=== PATIENT | female | born 1965 | race African-American/Black ===

== ENCOUNTER 2021-10-23 13:46 | Outpatient (REF) | payer OTHER, SELFPAY ==
[2021-10-23 15:24] LABS: Erythrocyte Sedimentation Rate 7 MM/HR (0-20)
[2021-10-24 05:30] LABS: Lyme Abs Screen <0.90 index
[2021-10-24 12:51] LABS: Anti Nuclear Antibody Screen NEGATIVE (NEGATIVE)
[2021-10-27 07:21] LABS: Angiotensin Converting Enzyme 6 U/L (9-67)
== END 2021-10-23 13:47 | disposition home or self-care (01) ==
LOC: HO.LAB 13:46
PROVIDERS: PCP Internal Medicine; Visit Provider Psychiatry & Neurology Neurology
DX: G51.0 Bell's palsy (principal)
CPT/HCPCS: 36415; 82164; 85652; 86038; 86039; 86617; 86618

== ENCOUNTER 2021-10-31 11:06 | Outpatient (REF) | payer MEDICARE, MEDICAID, SELFPAY ==
--- NOTE | ~2021-10-31 | MR_ITS ---
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 COMPARISON: None TECHNIQUE: Multiplanar, multisequence MRI of the brain was obtained before and after the intravenous administration of 10 mL Gadavist. FINDINGS: IACs: The internal auditory canals are bilaterally symmetric in appearance. Note is made of asymmetric enhancement involving the left 7th nerve within the fundus of the IAC and within the labyrinthine segment with asymmetric enhancement of the tympanic segment as well compared to the right side. There is asymmetric enhancement of the descending, mastoid segment but this could be within the range of normal. These findings are consistent with Chapin's palsy. No focal mass lesion is identified. On the right side, there is no evidence for mass lesion or abnormal enhancement. AICA Loops: Type I on left. Membranous Labyrinths: The membranous labyrinths are bilaterally symmetric on the fluid-sensitive thin-section T2-weighted images. There is no abnormal cochlear enhancement, and there is no abnormal enhancement within the vestibule or semicircular canals bilaterally. CP Angle Cisterns: No mass lesions or abnormal enhancement are identified. Brain Volume: Within normal limits. Brain and Meninges: DWI sequence demonstrates no restricted diffusion. Specifically, there is no evidence for acute or subacute cerebral ischemia. The remainder of the brain is normal in morphology and signal intensity. No evidence for hemorrhage, hemosiderin staining or abnormal mineral deposition. No extra-axial fluid collections, intracranial mass lesion, other abnormal enhancement, space-occupying process or mass effect. Vessels: Signal voids are seen in the visualized major intracranial vessels near the skull base. Ventricles and Subarachnoid Spaces: The ventricular system and subarachnoid spaces are within normal limits. There is no hydrocephalus. Orbital Structures: The visualized orbital structures are grossly unremarkable within the limitations of the study. Bony Structures: Upper cervical DDD and spondylosis is noted at C3-C4 and C4-C5. MR/MR head/brain wo/w con IMPRESSION: 1. Focal asymmetric enhancement of the left 7th nerve, as described above, which is consistent with the diagnosis of Chapin's palsy. No mass lesion identified. 2. Remainder of the brain is normal in appearance without and with contrast. 3. Upper cervical DDD and spondylosis.
[2021-10-31 11:40] LABS: Blood Urea Nitrogen 16 mg/dL (9-16); Estimated Glomerular Filt Rate 56
== END 2021-10-31 11:07 | disposition home or self-care (01) ==
LOC: HO.MRI 11:06
PROVIDERS: PCP Internal Medicine; Visit Provider Psychiatry & Neurology Neurology
DX: G51.0 Bell's palsy (principal)
CPT/HCPCS: 36415; 70553; 82565; 84520; A9585

== ENCOUNTER 2021-12-18 16:00 | Outpatient (RCR) | payer MEDICARE, OTHER, MEDICAID, SELFPAY ==
--- NOTE | 2021-10-31 13:09 | MHC.PT.EP ---
[facility] [place] Office [place] Office [place] Office [address] Willis Chaudhry [address] [phone] F: [phone] F: [phone] F: [phone] F: [phone] Physical Therapy Plan of Care Date of Evaluation: Date of Surgery: N/A Diagnosis: chase's palsy Assessment: pt presents to physical therapy with pain, decreased range of motion, decreased strength, difficulty w/ enunciation, impaired chewing/swallowing, and impaired postural awareness. pt is a good candidate for skilled PT due to age, potential remediation of impairments, typical disease/condition progression and prognosis, comorbidities, and motivation. pt would benefit from tailored strengthening and stretching exercise program, functional training, postural re-training, neuromuscular re-education, and modalities as needed for pain. Frequency and Duration: The patient will be seen 2x/wk for 4 wks Short Term Goals: pt will be I w/ HEP to promote self-management of condition. pt will be I w/ L eye closure to protect her eye w/ sleeping, coughing, and sneezing and progress from using eye patch. [facility] Goals: pt will have at least 3/5 strength for zygomaticus major to promote increased ability to smile for appropriate social interactions. pt will report <3/10 L sided forehead, eyebrow, eye, and cheek pain w/ chewing and swallowing to promote pain-limited return to eating. Treatment Plan: Modalities to reduce pain, spasms and effusion. Manual therapy to restore motion and function. Therapeutic exercise to improve strength and flexibility. Neuromuscular re-education for posture and balance. Therapeutic activities to return to functional activities of daily living. Electronically signed by: Sho Gutierrez PT, DPT Please sign and return to therapist. Thank you for your referral.
--- NOTE | 2022-01-15 16:23 | MHC.PT.DC ---
[facility] [place] Office [place] Office [place] Office [address] Willis Chaudhry [address] [phone] F: [phone] F: [phone] F: [phone] F: [phone] Physical Therapy Discharge Report Diagnosis: chase's palsy Date of Surgery: N/A Date of Evaluation: 10/31/21 Date of Discharge: 01/15/22 Treatments to Date: 7 Cancellations to Date: 8 No Shows to Date: 1 Discharge Status: Patient Elected to Stop Recommend MD Follow-up Discharge Summary: The patient overall was getting little to no recovery of activation of facial muscles on effected side. She was using NMES at subtherapeutic ranges due to poor tolerance of electrical stimulation. She has a home TENS unit she was using as well. The patient has a home exercise program including active and active assisted range of motion exercises involving effected facial muscles. She was educated on eye protection and safety. She was initially put on hold as she was having barriers to treatment including family and personal matters. She has not called to schedule any further appointments in over two weeks. She is discharged from this physical therapy plan of care with recommendation of physician follow-up to review any other potential recovery options. Electronically signed by: Sho Gutierrez PT, DPT Please sign and return to therapist. Thank you for your referral.
== END 2022-01-15 16:24 | disposition home or self-care (01) ==
LOC: HO.PT 16:00
PROVIDERS: Visit Provider Psychiatry & Neurology Neurology
DX: G51.0 Bell's palsy (principal)
CPT/HCPCS: 97014; 97110; 97140; 97161

== ENCOUNTER → 2022-04-12 13:09 | Outpatient (BNVA) | payer OTHER, SELFPAY | PROVIDERS: PCP Internal Medicine; Visit Provider Nurse Practitioner Family | DX: G51.0 Bell's palsy (principal); G51.32 Clonic hemifacial spasm, left; G43.009 Migraine without aura, not intractable, without status migrainosus | CPT/HCPCS: 99202 ==

== ENCOUNTER 2022-05-15 16:22 | Outpatient (REF) | payer OTHER, SELFPAY ==
--- NOTE | ~2022-05-15 | MR_ITS ---
MRI OF THE BRAIN WITH AND WITHOUT IV CONTRAST MRA OF THE BRAIN WITH AND WITHOUT IV CONTRAST INDICATION: Chapin's palsy. COMPARISON: Brain MRI 10/31/2021. TECHNIQUE: Multiplanar multisequence MR imaging of the brain was obtained without and following the administration of 10 of Gadavist without complication with dedicated IAC pulse series. FINDINGS: MRI BRAIN: There is significantly improved and nearly resolved asymmetric linear enhancement involving the fundal, labyrinthine, geniculate, tympanic, and mastoid segments of the left facial nerve in keeping with known left-sided Chapin's palsy. No parenchymal signal abnormality. No acute infarct on diffusion-weighted imaging. No intracranial hemorrhage on the gradient series. No hydrocephalus, extra-axial surface collection, or herniation. There is a 3 mm focus of hypoenhancement within the left aspect of the pituitary gland that could reflect a pituitary microadenoma which can be correlated with endocrine function tests. There is no sellar/suprasellar mass effect. Cerebellar tonsils are normally positioned. Craniocervical junction is normal. Osseous marrow signal intensity remains homogeneous. No significant soft tissue abnormality is appreciated. There is multilevel cervical spondylosis. MRA HEAD: There is normal antegrade flow related signal throughout the anterior and posterior intracranial arterial circulations without significant arterial stenosis and without acute arterial occlusion. No aneurysms and no high flow vascular malformations. MR/MR head/brain wo/w con IMPRESSION: - There is significantly improved and nearly resolved asymmetric linear enhancement involving the fundal, labyrinthine, geniculate, tympanic, and mastoid segments of the left facial nerve in keeping with known left-sided Chapin's palsy. - There is a 3 mm focus of hypoenhancement within the left aspect of the pituitary gland that could reflect a pituitary microadenoma which can be correlated with endocrine function tests. There is no sellar/suprasellar mass effect. - Unremarkable MRA of the head.
--- NOTE | ~2022-05-15 | MR_ITS ---
MRI OF THE BRAIN WITH AND WITHOUT IV CONTRAST MRA OF THE BRAIN WITH AND WITHOUT IV CONTRAST INDICATION: Chapin's palsy. COMPARISON: Brain MRI 10/31/2021. TECHNIQUE: Multiplanar multisequence MR imaging of the brain was obtained without and following the administration of 10 of Gadavist without complication with dedicated IAC pulse series. FINDINGS: MRI BRAIN: There is significantly improved and nearly resolved asymmetric linear enhancement involving the fundal, labyrinthine, geniculate, tympanic, and mastoid segments of the left facial nerve in keeping with known left-sided Chapin's palsy. No parenchymal signal abnormality. No acute infarct on diffusion-weighted imaging. No intracranial hemorrhage on the gradient series. No hydrocephalus, extra-axial surface collection, or herniation. There is a 3 mm focus of hypoenhancement within the left aspect of the pituitary gland that could reflect a pituitary microadenoma which can be correlated with endocrine function tests. There is no sellar/suprasellar mass effect. Cerebellar tonsils are normally positioned. Craniocervical junction is normal. Osseous marrow signal intensity remains homogeneous. No significant soft tissue abnormality is appreciated. There is multilevel cervical spondylosis. MRA HEAD: There is normal antegrade flow related signal throughout the anterior and posterior intracranial arterial circulations without significant arterial stenosis and without acute arterial occlusion. No aneurysms and no high flow vascular malformations. MR/MR angio head wo con IMPRESSION: - There is significantly improved and nearly resolved asymmetric linear enhancement involving the fundal, labyrinthine, geniculate, tympanic, and mastoid segments of the left facial nerve in keeping with known left-sided Chapin's palsy. - There is a 3 mm focus of hypoenhancement within the left aspect of the pituitary gland that could reflect a pituitary microadenoma which can be correlated with endocrine function tests. There is no sellar/suprasellar mass effect. - Unremarkable MRA of the head.
== END 2022-05-15 16:23 | disposition home or self-care (01) ==
LOC: HO.MRI 16:22
PROVIDERS: Visit Provider Nurse Practitioner Family
DX: G51.0 Bell's palsy (principal); G51.32 Clonic hemifacial spasm, left; I11.0 Hypertensive heart disease with heart failure; I50.9 Heart failure, unspecified; E78.5 Hyperlipidemia, unspecified
CPT/HCPCS: 70544; 70553; A9585

== ENCOUNTER → 2022-07-13 13:26 | Outpatient (BNVA) | payer OTHER, SELFPAY | PROVIDERS: PCP Internal Medicine; Visit Provider Nurse Practitioner Family | DX: G51.32 Clonic hemifacial spasm, left (principal); G43.009 Migraine without aura, not intractable, without status migrainosus; G51.0 Bell's palsy; D35.2 Benign neoplasm of pituitary gland; L65.9 Nonscarring hair loss, unspecified | CPT/HCPCS: 99212 ==

== ENCOUNTER → 2022-08-07 08:56 | Outpatient (BNVA) | payer OTHER, SELFPAY | PROVIDERS: PCP Internal Medicine; Visit Provider Psychiatry & Neurology Neurology | DX: G51.32 Clonic hemifacial spasm, left (principal) | CPT/HCPCS: 64612; 99211; J0585 ==

== ENCOUNTER → 2022-08-17 16:32 | Outpatient (BNVA) | payer OTHER, SELFPAY | PROVIDERS: PCP Internal Medicine; Visit Provider Internal Medicine Endocrinology, Diabetes & Metabolism | DX: D35.2 Benign neoplasm of pituitary gland (principal) | CPT/HCPCS: 99202 ==

== ENCOUNTER → 2022-09-27 12:55 | Outpatient (BNVA) | payer OTHER, SELFPAY | PROVIDERS: PCP Internal Medicine; Visit Provider Nurse Practitioner Family | DX: M54.2 Cervicalgia (principal); G43.009 Migraine without aura, not intractable, without status migrainosus; G51.0 Bell's palsy; G51.32 Clonic hemifacial spasm, left; Z79.899 Other long term (current) drug therapy | CPT/HCPCS: 99212 ==

== ENCOUNTER → 2022-11-06 15:48 | Outpatient (BNVA) | payer OTHER, SELFPAY | PROVIDERS: PCP Internal Medicine; Visit Provider Psychiatry & Neurology Neurology | DX: G51.32 Clonic hemifacial spasm, left (principal) | CPT/HCPCS: 64612; 99211; J0585 ==

== ENCOUNTER → 2022-12-20 13:07 | Outpatient (BNVA) | payer OTHER, SELFPAY | PROVIDERS: PCP Internal Medicine; Visit Provider Nurse Practitioner Family | DX: G43.009 Migraine without aura, not intractable, without status migrainosus (principal); G51.32 Clonic hemifacial spasm, left; G51.0 Bell's palsy; G47.19 Other hypersomnia; G47.9 Sleep disorder, unspecified; R06.83 Snoring | CPT/HCPCS: 99212 ==

== ENCOUNTER → 2023-02-06 08:28 | Outpatient (BNVA) | payer OTHER, SELFPAY | PROVIDERS: PCP Internal Medicine; Visit Provider Psychiatry & Neurology Neurology | DX: G51.32 Clonic hemifacial spasm, left (principal) | CPT/HCPCS: 64612; 99211; J0585 ==

== ENCOUNTER → 2023-02-28 11:50 | Outpatient (BNVA) | payer OTHER, SELFPAY | PROVIDERS: PCP Internal Medicine; Visit Provider Internal Medicine Endocrinology, Diabetes & Metabolism | DX: D35.2 Benign neoplasm of pituitary gland (principal) | CPT/HCPCS: 99212 ==

== ENCOUNTER → 2023-03-26 13:59 | Outpatient (BNVA) | payer OTHER, SELFPAY | PROVIDERS: PCP Internal Medicine; Visit Provider Nurse Practitioner Family | DX: G43.009 Migraine without aura, not intractable, without status migrainosus (principal); G51.32 Clonic hemifacial spasm, left; G51.0 Bell's palsy; G47.19 Other hypersomnia; G47.9 Sleep disorder, unspecified; M54.2 Cervicalgia; R06.83 Snoring | CPT/HCPCS: 99212 ==

== ENCOUNTER 2023-07-12 13:06 | Outpatient (AMB) | payer OTHER, SELFPAY ==
[2023-07-12 13:08] VITALS: BP 130/90; PULSE 111; O2SAT 99; BMI 34.7
--- NOTE | 2023-07-12 13:08 | MHC.OFFVIS ---
Intake Vital Signs 07/12/23 13:08 Height 5 ft 4 in Weight 202 lb BMI 34.7 BP 130/90 H Blood Pressure Location Rt brachial Position Sitting Pulse 111 H Pulse Source Pulse Oximeter Pulse Oximetry (%) 99 Oxygen Delivery Method Room Air Intake Visit Reasons: 3m follow up-Confirmed Intake Note: Patient presents for 3 month follow up. Patient states I don't know if i got injection last month but my mom passed and its been stressful I forgot if I did it or not My right side of my face feels like its pulling. Allergies Sulfa (Sulfonamide Antibiotics) Allergy (Mild, Verified 07/12/23 13:12) Hives Medication List - Last Reconciled 07/12/23 by SKYE Rios acetaminophen 0 mg PO acetaminophen ER (Tylenol 8 Hour) 650 mg PO Q12H [id number]-[id number] 50-325-40 mg 1 - 2 tabs PO Q4-6H PRN 30 days celecoxib 0 mg PO cetirizine (Zyrtec) 10 mg PO DAILY PRN cholecalciferol (vitamin D3) (Vitamin D3) 50 mcg PO DAILY cyclobenzaprine 10 mg PO BID 30 days diclofenac sodium 1% 4 grams topical BID gabapentin 300 mg PO BID 30 days galcanezumab-gnlm (Emgality Pen) 120 mg subcut ONCE 30 days hydrochlorothiazide 25 mg PO DAILY lisinopril 20 mg PO DAILY magnesium oxide 400 mg PO BEDTIME 30 days melatonin 3 mg PO BEDTIME PRN melatonin 1 mg PO BEDTIME metoprolol tartrate 50 mg PO BID onabotulinumtoxinA (Botox) 100 units IM ONCE 12 weeks ondansetron HCl 4 mg PO Q8H PRN polyethylene glycol 3350 17 grams PO DAILY pyridoxine (vitamin B6) (Vitamin B-6) 250 mg PO DAILY PRN riboflavin (vitamin B2) 400 mg PO DAILY sertraline 100 mg PO DAILY thiamine mononitrate (vit B1) (Vitamin B-1 (mononitrate)) 250 mg PO DAILY trazodone 50 mg PO BEDTIME HPI HPI Comments History of Present Illness Details 57-yr-old female presents for f/u visit. Pt denies any significant interval medical changes. However, she did lose her mom over the summer and has been overwhelmed with all that needs to be done and is still grieving from the loss of her mom. She did have [facility] pain management consult- was advised to have neurosurgeon consult with Dr Hayward in [facility], who advised her to undergo l-spine repair for tx of lumbroscral radiculitis. She is open to doing this but will wait until next year. They advsied agianst any cervical surgical interventions at this time. Also needs to have a TKR next year. She is currently overdue for her Botox for her left facial hemispasm- she is noticing more left facial spasms, especially when eating her eye will spasms, or when talking the left cheek will spasm. This was less noticeable and bothersome after the last Botox injection. She is having more headaches, nearly everyday now. She has been noticing a right facial pulling around her eye area. She is having increased headaches. She is not sleeping as well. She has missed her last 1-2 months of Emgality. She ran out of her gabapentin. [facility] Medical History Brachial radiculitis Cervical post-laminectomy syndrome Congestive heart failure (CHF) Degenerative disc disease, cervical Depression with anxiety GERD (gastroesophageal reflux disease) HLD (hyperlipidemia) Insomnia Lumbosacral radiculitis Obstructive sleep apnea Osteoarthritis Post-thrombotic syndrome Urinary incontinence Vitamin D deficiency Surgical History H/O breast biopsy History of lumbar spinal fusion S/P laparoscopic surgery Hx of tubal ligation History of total knee replacement (TKR) Hx of neck surgery Hx of hand surgery Hx of colonoscopy Family History Mother Breast CA DM (diabetes mellitus) HTN (hypertension) Arthritis ESRD (end stage renal disease) Father Arthritis ESRD (end stage renal disease) Maternal Aunt Breast CA Social History Household Members: Spouse Alcohol intake: current Alcohol intake frequency: a few times a week Patient Tobacco Use Status: Never used Tobacco Substance Use Type: Marijuana Review of Systems Const All systems reviewed & are unremarkable except as noted in HPI and below Physical Exam Vital Signs: Last Vital Signs Pulse 111 H 07/12/23 13:08 BP 130/90 H 07/12/23 13:08 Pulse Ox 99 07/12/23 13:08 Oxygen Delivery Method Room Air 07/12/23 13:08 BMI result Body Mass Index 34.7 Const General: cooperative and no acute distress Orientation/consciousness: patient oriented x3 HEENT Head: Yes normocephalic Resp Effort & Inspection: normal respiratory effort and able to speak in complete sentences Neuro General: patient oriented x3, gait normal and CN's II-XI intact bilaterally Cognition (Neuro): normal cognition Motor exam (neuro): 5/5 motor strength present throughout Psych Appearance: grossly normal Mental Status: mental status grossly normal Speech and movement: Normal speech and movement present Affect: normal affect Attitude: cooperative Thought process: Normal thought process present Thought content: Normal thought content present Insight: Good insight present (Psych) Judgement: Good judgement present (Psych) Assessment & Plan Assessment & Plan (1) Migraine without aura: Code(s): G43.009 - Migraine without aura, not intractable, without status migrainosus (2) Hemifacial spasm of left side of face: Code(s): G51.32 - Clonic hemifacial spasm, left (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 Increase Gabapentin from 300mg bid to 300mg qam and 600mg qhs- in hopes this helps headcahes as well. f/u w/ pain management Dr Smith. For sleep difficulties: Pt missed her HST appt- advised to reschedule. ? For hemifascial spasm: Resume Botox q 3 months, as pt previously experienced good effect from use. Continue to do facial exercises ? For migraine w/o aura: Resume Emgality? 120mg sc q month. Continue Riboflavin 400mg qam Continue Magnesium 400mg qhs Stop Fioircet prn. Trial Ubrelvy as needed Contraindications- triptans d/t HTN. Previous migraine trials: Topiramate was not helpful. Previously tried Amitriptyline- unhelpful. She currently takes metoprolol for HTN however this does not help migraines. Future considerations- Nurtec or qulipta for prevention. ? f/u in 4 months or sooner prn Medications: New ubrogepant (Ubrelvy) take at onset of migraine, may repeat in 2hrs (may take w/ Tylenol) 50 - 100 mg (0.5 - 1 x 100 mg) PO ONCE 30 days PRN 16 tabs 3RF migraine headache Changed From gabapentin 300 mg PO BID 30 days 60 caps 3RF To gabapentin 300mg qam and 600mg qhs orally .; 30 days 90 caps 3RF Coding Level of Care Code Est Pt Level 4 (28697) Diagnoses Migraine without aura G43.009 Hemifacial spasm of left side of face G51.32 Chapin's palsy G51.0 Cervicalgia M54.2 Snoring R06.83 Excessive daytime sleepiness G47.19 Sleep difficulties G47.9
== END 2023-07-12 13:56 | disposition home or self-care (01) ==
PROVIDERS: PCP Internal Medicine; Visit Provider Nurse Practitioner Family
DX: G43.009 Migraine without aura, not intractable, without status migrainosus (principal); G51.32 Clonic hemifacial spasm, left; G51.0 Bell's palsy; M54.2 Cervicalgia; R06.83 Snoring; G47.19 Other hypersomnia; G47.9 Sleep disorder, unspecified
CPT/HCPCS: 99214

== ENCOUNTER → 2023-07-12 13:06 | Outpatient (BNVA) | payer OTHER, SELFPAY | PROVIDERS: PCP Internal Medicine; Visit Provider Nurse Practitioner Family | DX: G43.009 Migraine without aura, not intractable, without status migrainosus (principal); G51.32 Clonic hemifacial spasm, left; G51.0 Bell's palsy; M54.2 Cervicalgia; G47.19 Other hypersomnia; R06.83 Snoring; Z79.899 Other long term (current) drug therapy | CPT/HCPCS: 99212 ==

== ENCOUNTER 2023-07-16 07:31 | Outpatient (AMB) | payer OTHER, SELFPAY ==
--- NOTE | 2023-07-16 07:35 | A.OFFVIS_ITS ---
Intake Vital Signs 07/16/23 07:49 Weight 202 lb 8 oz BP 120/90 H Blood Pressure Location Rt brachial Position Sitting Pulse 83 Pulse Source Pulse Oximeter Pulse Oximetry (%) 99 Oxygen Delivery Method Room Air Intake Visit Reasons: Botox-confirmed Intake Note: Botox Injection Surgeon Assistant Required: No Allergies Sulfa (Sulfonamide Antibiotics) Allergy (Mild, Verified 07/16/23 07:37) Hives Medication List - Last Reconciled 07/16/23 by Florina Perla MD acetaminophen 0 mg PO acetaminophen ER (Tylenol 8 Hour) 650 mg PO Q12H celecoxib 0 mg PO cetirizine (Zyrtec) 10 mg PO DAILY PRN cholecalciferol (vitamin D3) (Vitamin D3) 50 mcg PO DAILY cyclobenzaprine 10 mg PO BID 30 days diclofenac sodium 1% 4 grams topical BID gabapentin 300 mg PO BID hydrochlorothiazide 25 mg PO DAILY ketoconazole 2% topical lisinopril 20 mg PO DAILY magnesium oxide 400 mg PO BEDTIME 30 days melatonin 3 mg PO BEDTIME PRN metoprolol tartrate 50 mg PO BID onabotulinumtoxinA (Botox) 100 units IM ONCE 12 weeks ondansetron HCl 4 mg PO Q8H PRN polyethylene glycol 3350 17 grams PO DAILY pyridoxine (vitamin B6) (Vitamin B-6) 250 mg PO DAILY PRN sertraline 100 mg PO DAILY thiamine HCl (vitamin B1) mg PO trazodone 50 mg PO BEDTIME ubrogepant (Ubrelvy) 50 - 100 mg (0.5 - 1 x 100 mg) PO ONCE PRN 30 days HPI HPI Comments History of Present Illness Details 57y/o female comes for treatment of her left hemifacial spasm with botox Botulinum toxin type A 100 units Lot no C [id number] X 1 Exp 01/2025 was diluted with 1 cc of normal saline at a concentration of 5 units in 0.1 cc. Side effects were discussed and an informed consent was obtained. Muscles injected left Lateral canthus - 10 units each left Lateral Lower eyelid-10units each left zygomaticus 10 units left Nasolabial fold 10 units each left mentalis 5 units each left uppe rlip 5 units Venkata temporlais 20 units each Total used 90units discarded 10 units PFSH Medical History Vitamin D deficiency Insomnia Depression with anxiety GERD (gastroesophageal reflux disease) HLD (hyperlipidemia) Obstructive sleep apnea Urinary incontinence Post-thrombotic syndrome Congestive heart failure (CHF) Degenerative disc disease, cervical Osteoarthritis Lumbosacral radiculitis Cervical post-laminectomy syndrome Brachial radiculitis Surgical History H/O breast biopsy History of lumbar spinal fusion S/P laparoscopic surgery Hx of tubal ligation History of total knee replacement (TKR) Hx of neck surgery Hx of hand surgery Hx of colonoscopy Family History Mother Breast CA DM (diabetes mellitus) HTN (hypertension) Arthritis ESRD (end stage renal disease) Father Arthritis ESRD (end stage renal disease) Maternal Aunt Breast CA Social History Household Members: Spouse Alcohol intake: current Alcohol intake frequency: a few times a week Patient Tobacco Use Status: Never used Tobacco Substance Use Type: Marijuana Physical Exam Vital Signs: Last Vital Signs Pulse 83 07/16/23 07:49 BP 120/90 H 07/16/23 07:49 Pulse Ox 99 07/16/23 07:49 Oxygen Delivery Method Room Air 07/16/23 07:49 Const Other: left hemifacial spasm Office Procedures Botulinum toxin Injection 90248 - Facial Nerve Procedure code (CPT) selection complete Office Meds onabotulinumtoxinA 100 unit solution for injection Performing Provider: Florina Perla MD Performing Location[place] [facility] [place] [facility] Administered by: Florina Perla MD on 07/16/23 08:17 Dose Route Admin Location Dispensed Lot Number Expiration Date [facility] Bracer 100 unit subcut 100 units [id number] 01/19/25 2836-3633-94 [employer] Comments: see hpi Assessment & Plan Assessment & Plan (1) Hemifacial spasm of left side of face: Code(s): G51.32 - Clonic hemifacial spasm, left Plan Patient tolerated the procedure well she will call with any side effects Orders: Orders AMB Botulinum toxin Injection - Patient Supplied Today G51.32 - Clonic hemifacial spasm, left Medications: Changed From gabapentin 300mg qam and 600mg qhs orally .; 90 caps 3RF 30 days To gabapentin 300 mg PO BID Coding Level of Care Code Est Pt Level 1 (38620) Diagnoses Hemifacial spasm of left side of face G51.32 CPT Codes Botox Injection - Botox 2: 33300 - Facial Nerve ([id number])
[2023-07-16 07:49] VITALS: BP 120/90; PULSE 83; O2SAT 99
== END 2023-07-16 08:10 | disposition home or self-care (01) ==
PROVIDERS: PCP Internal Medicine; Visit Provider Psychiatry & Neurology Neurology
DX: G51.32 Clonic hemifacial spasm, left (principal)
CPT/HCPCS: 64612

== ENCOUNTER → 2023-07-16 07:31 | Outpatient (BNVA) | payer OTHER, SELFPAY | PROVIDERS: PCP Internal Medicine; Visit Provider Psychiatry & Neurology Neurology | DX: G51.32 Clonic hemifacial spasm, left (principal) | CPT/HCPCS: 64612; 99211; J0585 ==

== ENCOUNTER 2023-09-19 15:53 | Outpatient (AMB) | payer OTHER, SELFPAY ==
--- NOTE | 2023-09-19 16:07 | MHC.OFFVIS ---
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 Accompanied by: Self / Same As Patient Allergies Sulfa (Sulfonamide Antibiotics) Allergy (Mild, Verified 09/19/23 16:09) Hives adhesive tape Adverse Reaction (Mild, Verified 09/19/23 16:09) Rash Medication List - Last Reconciled 09/19/23 by Madi Ramirez RN acetaminophen 0 mg PO acetaminophen ER (Tylenol 8 Hour) 650 mg PO Q12H celecoxib 0 mg PO cetirizine (Zyrtec) 10 mg PO DAILY PRN cholecalciferol (vitamin D3) (Vitamin D3) 50 mcg PO DAILY cyclobenzaprine 10 mg PO BID 30 days diclofenac sodium 1% 4 grams topical BID gabapentin 300 mg PO BID hydrochlorothiazide 25 mg PO DAILY ketoconazole 2% topical lisinopril 20 mg PO DAILY melatonin 3 mg PO BEDTIME PRN metoprolol tartrate 50 mg PO BID onabotulinumtoxinA (Botox) 100 units IM ONCE 12 weeks ondansetron HCl 4 mg PO Q8H PRN polyethylene glycol 3350 17 grams PO DAILY sertraline 100 mg PO DAILY trazodone 50 mg PO BEDTIME ubrogepant (Ubrelvy) 50 - 100 mg (0.5 - 1 x 100 mg) PO ONCE PRN 30 days Do you need a note to return to daycare/school/sports/work: No HPI HPI Comments History of Present Illness Details This is a 58-year-old female found to have an? incidental pituitary micro adenoma. She denies any galactorrhea. She denies any symptoms of acromegaly . She denies any sx of Pl[place]'s Syndrome except for hair growth but no easy bruising . MRI done for Chapin's Palsy . Postmenopausal since early 30s There is a 3 mm focus of hypoenhancement within the left spect of the pituitary gland that could reflect a pituitary microadenoma which can be correlated with endocrine function tests. There is no sellar/suprasellar mass effect. He does complain of gradual increase in hair growth on the face. She is incontinent of urine and does not desire to go in spironolactone future [facility] Medical History (Updated 09/19/23 @ 16:47 by Oliver Blank MD) Hirsutism Vitamin D deficiency Insomnia Depression with anxiety GERD (gastroesophageal reflux disease) HLD (hyperlipidemia) Obstructive sleep apnea Urinary incontinence Post-thrombotic syndrome Congestive heart failure (CHF) Degenerative disc disease, cervical Osteoarthritis Lumbosacral radiculitis Cervical post-laminectomy syndrome Brachial radiculitis Surgical History H/O breast biopsy History of lumbar spinal fusion S/P laparoscopic surgery Hx of tubal ligation History of total knee replacement (TKR) Hx of neck surgery Hx of hand surgery Hx of colonoscopy Family History Mother Breast CA DM (diabetes mellitus) HTN (hypertension) Arthritis ESRD (end stage renal disease) Father Arthritis ESRD (end stage renal disease) Maternal Aunt Breast CA Social History Household Members: None Alcohol intake: current Alcohol intake frequency: a few times a week Patient Tobacco Use Status: Never used Tobacco Substance Use Type: Marijuana Physical Exam Vital Signs: Last Vital Signs Pulse 80 09/19/23 16:11 BP 122/72 09/19/23 16:11 Pulse Ox 99 09/19/23 16:11 Oxygen Delivery Method Room Air 09/19/23 16:11 Assessment & Plan Assessment & Plan (1) Pituitary microadenoma: Code(s): D35.2 - Benign neoplasm of pituitary gland Plan: This 57-year-old black female with a history of incidentally discovered? Pituitary micro adenoma most likely non- secretory. Rule out ACTH secretion although doubt Will repeat MRI of the pituitary (2) Hirsutism: Code(s): L68.0 - Hirsutism Plan: Will check DHEA-S and testosterone in a.m. Orders: Orders Testosterone, Free/Total 09/19/23 L68.0 - Hirsutism MR head/brain wo/w con 09/19/23 D35.2 - Benign neoplasm of pituitary gland DHEA Sulfate 09/19/23 L68.0 - Hirsutism Coding Level of Care Code Est Pt Level 3 (85712) Diagnoses Pituitary microadenoma D35.2 Hirsutism L68.0
[2023-09-19 16:11] VITALS: BP 122/72; PULSE 80; O2SAT 99
== END 2023-09-19 16:57 | disposition home or self-care (01) ==
PROVIDERS: PCP Internal Medicine; Visit Provider Internal Medicine Endocrinology, Diabetes & Metabolism
DX: D35.2 Benign neoplasm of pituitary gland (principal); L68.0 Hirsutism
CPT/HCPCS: 99213

== ENCOUNTER → 2023-09-19 15:53 | Outpatient (BNVA) | payer OTHER, SELFPAY | PROVIDERS: PCP Internal Medicine; Visit Provider Internal Medicine Endocrinology, Diabetes & Metabolism | DX: D35.2 Benign neoplasm of pituitary gland (principal); L68.0 Hirsutism | CPT/HCPCS: 99212 ==

== ENCOUNTER → 2023-09-26 14:54 | Outpatient (REF) | payer OTHER, SELFPAY | LOC: HO.SL 14:54 | PROVIDERS: PCP Internal Medicine; Visit Provider Nurse Practitioner Family | DX: R06.83 Snoring (principal); G47.19 Other hypersomnia; G47.33 Obstructive sleep apnea (adult) (pediatric) | CPT/HCPCS: 95806 ==

== ENCOUNTER → 2023-09-26 15:02 | Outpatient (BNV) | payer OTHER, SELFPAY | PROVIDERS: PCP Internal Medicine; Visit Provider Psychiatry & Neurology Neurology | DX: G47.33 Obstructive sleep apnea (adult) (pediatric) (principal) | CPT/HCPCS: 95806 ==

== ENCOUNTER 2023-10-23 14:49 | Outpatient (AMB) | payer OTHER, SELFPAY ==
--- NOTE | 2023-10-23 15:15 | MHC.OFFVIS ---
Intake Vital Signs 10/23/23 15:16 Height 5 ft 4 in Weight 210 lb BMI 36.0 BP 158/96 H Blood Pressure Location Lt brachial Position Sitting Respiration 16 Pulse 83 Pulse Source Pulse Oximeter Pulse Oximetry (%) 97 Oxygen Delivery Method Room Air Intake Visit Reasons: Botox - confirme Intake Note: Pt presents to office for Botox injections. Director Of Math Required: No Allergies Sulfa (Sulfonamide Antibiotics) Allergy (Mild, Verified 10/23/23 15:16) Hives adhesive tape Adverse Reaction (Mild, Verified 10/23/23 15:16) Rash Medication List - Last Reconciled 10/23/23 by Florina Perla MD acetaminophen 0 mg PO acetaminophen ER (Tylenol 8 Hour) 650 mg PO Q12H celecoxib 0 mg PO cetirizine (Zyrtec) 10 mg PO DAILY PRN cholecalciferol (vitamin D3) (Vitamin D3) 50 mcg PO DAILY cyclobenzaprine 10 mg PO BID 30 days diclofenac sodium 1% 4 grams topical BID gabapentin 300 mg PO BID hydrochlorothiazide 25 mg PO DAILY ketoconazole 2% topical lisinopril 20 mg PO DAILY melatonin 3 mg PO BEDTIME PRN metoprolol tartrate 50 mg PO BID onabotulinumtoxinA (Botox) 100 units IM ONCE 12 weeks ondansetron HCl 4 mg PO Q8H PRN polyethylene glycol 3350 17 grams PO DAILY sertraline 100 mg PO DAILY trazodone 50 mg PO BEDTIME ubrogepant (Ubrelvy) 50 - 100 mg (0.5 - 1 x 100 mg) PO ONCE PRN 30 days HPI HPI Comments History of Present Illness Details 58y/o female comes for treatment of her left hemifacial spasm with botox Effectiveness of last two botox: Change in intensity of spasms- decreased Change in frequency of spasms- decreased Changes in quality of life- improved Have at least three months elapsed since last treatment (Last botox date - frequency of injections)?- 3 months ago Botulinum toxin type A 100 units Lot no C [id number] X 1 Exp 01/2026 was diluted with 1 cc of normal saline at a concentration of 5 units in 0.1 cc. Side effects were discussed and an informed consent was obtained. Muscles injected left Lateral canthus - 10 units each left Lateral Lower eyelid-10units each left zygomaticus 10 units left Nasolabial fold 10 units each left mentalis 5 units each left upper lip 5 units Venkata temporlais 20 units each Total used 90units discarded 10 units PFSH Medical History Hirsutism Vitamin D deficiency Insomnia Depression with anxiety GERD (gastroesophageal reflux disease) HLD (hyperlipidemia) Obstructive sleep apnea Urinary incontinence Post-thrombotic syndrome Congestive heart failure (CHF) Degenerative disc disease, cervical Osteoarthritis Lumbosacral radiculitis Cervical post-laminectomy syndrome Brachial radiculitis Surgical History H/O breast biopsy History of lumbar spinal fusion S/P laparoscopic surgery Hx of tubal ligation History of total knee replacement (TKR) Hx of neck surgery Hx of hand surgery Hx of colonoscopy Family History Mother Breast CA DM (diabetes mellitus) HTN (hypertension) Arthritis ESRD (end stage renal disease) Father Arthritis ESRD (end stage renal disease) Maternal Aunt Breast CA Social History Household Members: None Alcohol intake: current Alcohol intake frequency: a few times a week Patient Tobacco Use Status: Never used Tobacco Substance Use Type: Marijuana Physical Exam Vital Signs: Last Vital Signs Pulse 83 10/23/23 15:16 Resp 16 10/23/23 15:16 BP 158/96 H 10/23/23 15:16 Pulse Ox 97 10/23/23 15:16 Oxygen Delivery Method Room Air 10/23/23 15:16 BMI result Body Mass Index 36.0 Const Other: left hemifacial spasm Office Procedures Botulinum toxin Injection 34547 - Facial Nerve Procedure code (CPT) selection complete Office Meds onabotulinumtoxinA 100 unit solution for injection Performing Provider: Florina Perla MD Performing Location: [facility] [place] [facility] Administered by: Florina Perla MD on 10/23/23 16:24 Dose Route Admin Location Dispensed Lot Number Expiration Date [facility] [employer] 100 unit subcut 100 units [id number] 01/19/26 0202-1915-87 [employer] Comments: see HPI Assessment & Plan Assessment & Plan (1) Hemifacial spasm of left side of face: Code(s): G51.32 - Clonic hemifacial spasm, left Plan Patient tolerated the procedure well she will call with any side effects Orders: Orders AMB Botulinum toxin Injection - Patient Supplied Today G51.32 - Clonic hemifacial spasm, left Coding Level of Care Code Est Pt Level 1 (78159) Diagnoses Hemifacial spasm of left side of face G51.32 CPT Codes Botox Injection - Botox 2: 80027 - Facial Nerve ([id number])
[2023-10-23 15:16] VITALS: BP 158/96; PULSE 83; RESP 16; O2SAT 97; BMI 36.0
== END 2023-10-23 16:13 | disposition home or self-care (01) ==
PROVIDERS: PCP Internal Medicine; Visit Provider Psychiatry & Neurology Neurology
DX: G51.32 Clonic hemifacial spasm, left (principal)
CPT/HCPCS: 64612

== ENCOUNTER → 2023-10-23 21:00 | Outpatient (REF) | payer OTHER, SELFPAY | LOC: HO.SL 21:00 | PROVIDERS: PCP Internal Medicine; Visit Provider Nurse Practitioner Family | DX: G47.33 Obstructive sleep apnea (adult) (pediatric) (principal); G47.34 Idiopathic sleep related nonobstructive alveolar hypoventilation; G51.32 Clonic hemifacial spasm, left | CPT/HCPCS: 64612; 95811; 99211; J0585 ==

== ENCOUNTER → 2023-10-24 03:02 | Outpatient (BNV) | payer OTHER, SELFPAY | PROVIDERS: PCP Internal Medicine; Visit Provider Psychiatry & Neurology Neurology | DX: G47.33 Obstructive sleep apnea (adult) (pediatric) (principal) | CPT/HCPCS: 95811 ==

== ENCOUNTER 2023-10-29 14:42 | Outpatient (AMB) | payer OTHER, SELFPAY ==
--- NOTE | 2023-10-29 14:45 | MHC.OFFVIS ---
Intake Intake Visit Reasons: 4 mnts f/u appt-Confirmed Intake Note: Patient presents for 4 months follow up. Im here for the sleep study results. Allergies Sulfa (Sulfonamide Antibiotics) Allergy (Mild, Verified 10/29/23 14:49) Hives adhesive tape Adverse Reaction (Mild, Verified 10/29/23 14:49) Rash Medication List - Last Reconciled 10/29/23 by SKYE Rios acetaminophen 0 mg PO acetaminophen ER (Tylenol 8 Hour) 650 mg PO Q12H celecoxib 0 mg PO cetirizine (Zyrtec) 10 mg PO DAILY PRN cholecalciferol (vitamin D3) (Vitamin D3) 50 mcg PO DAILY cyclobenzaprine 10 mg PO BID 30 days diclofenac sodium 1% 4 grams topical BID gabapentin 300 mg PO BID hydrochlorothiazide 25 mg PO DAILY ketoconazole 2% topical lisinopril 20 mg PO DAILY melatonin 3 mg PO BEDTIME PRN metoprolol tartrate 50 mg PO BID onabotulinumtoxinA (Botox) 100 units IM ONCE 12 weeks ondansetron HCl 4 mg PO Q8H PRN polyethylene glycol 3350 17 grams PO DAILY sertraline 100 mg PO DAILY trazodone 50 mg PO BEDTIME ubrogepant (Ubrelvy) 50 - 100 mg (0.5 - 1 x 100 mg) PO ONCE PRN 30 days HPI HPI Comments History of Present Illness Details 58-yr-old female presents for f/u visit to discuss her recent sleep study. Her recent home sleep study result were c/w severe ASHKAN w/ nocturnal hypoxemia. She was advsied to undergo f/u in-lab PAP titration study, which she did on 10/23/23, results are still pending. She continues to have snoring, gasping, difficulty staying asleep, difficulty falling asleep, daytime sleepiness. She also notes she often feels brain fog as though she is not thinking as quickly as before. PENDING SALE TO [facility] Medical History Hirsutism Vitamin D deficiency Insomnia Depression with anxiety GERD (gastroesophageal reflux disease) HLD (hyperlipidemia) Obstructive sleep apnea Urinary incontinence Post-thrombotic syndrome Congestive heart failure (CHF) Degenerative disc disease, cervical Osteoarthritis Lumbosacral radiculitis Cervical post-laminectomy syndrome Brachial radiculitis Surgical History H/O breast biopsy History of lumbar spinal fusion S/P laparoscopic surgery Hx of tubal ligation History of total knee replacement (TKR) Hx of neck surgery Hx of hand surgery Hx of colonoscopy Family History Mother Breast CA DM (diabetes mellitus) HTN (hypertension) Arthritis ESRD (end stage renal disease) Father Arthritis ESRD (end stage renal disease) Maternal Aunt Breast CA Social History Household Members: None Alcohol intake: current Alcohol intake frequency: a few times a week Patient Tobacco Use Status: Never used Tobacco Substance Use Type: Marijuana Review of Systems Const All systems reviewed & are unremarkable except as noted in HPI and below Physical Exam Const General: cooperative and no acute distress Orientation/consciousness: patient oriented x3 HEENT Head: Yes normocephalic Resp Effort & Inspection: normal respiratory effort and able to speak in complete sentences Neuro Other: Left hemifascial spasm General: patient oriented x3 Cognition (Neuro): normal cognition Motor exam (neuro): 5/5 motor strength present throughout Psych Appearance: grossly normal Mental Status: mental status grossly normal Speech and movement: Normal speech and movement present Affect: normal affect Attitude: cooperative Thought process: Normal thought process present Thought content: Normal thought content present Insight: Good insight present (Psych) Judgement: Good judgement present (Psych) Assessment & Plan Assessment & Plan (1) Severe obstructive sleep apnea: Comment: 10/03/23 HST: AHI 56.7/hr and O2 bran 67% Code(s): G47.33 - Obstructive sleep apnea (adult) (pediatric) (2) Nocturnal hypoxemia: Code(s): G47.34 - Idiopathic sleep related nonobstructive alveolar hypoventilation (3) Sleep difficulties: Code(s): G47.9 - Sleep disorder, unspecified (4) Excessive daytime sleepiness: Code(s): G47.19 - Other hypersomnia Plan Reviewed HST- severe ASHKAN w/ nocturnal hypoxemia. Discussed complications a/w untreated ASHKAN- including but not limited to cardiovascular, metabolic, cognitive, and accidental injury. Upon review of PAP titration study will initiate order for Pap therapy. It in Pap titration study, nocturnal hypoxemia was not corrected, consider referral to pulmonology. Pt may benefit from reading/listening to [facility] to Insomnia by Dr Rubin Mendez or similar sleep and CBTi resources. Increase exercise- pt advised to resume going to the [facility], [place] for pool exercises. For now , may continue Trazodone. f/u in 3 months or sooner prn Coding Level of Care Code Est Pt Level 4 (09018) Diagnoses Severe obstructive sleep apnea G47.33 Nocturnal hypoxemia G47.34 Sleep difficulties G47.9 Excessive daytime sleepiness G47.19
== END 2023-10-29 15:28 | disposition home or self-care (01) ==
PROVIDERS: PCP Internal Medicine; Visit Provider Nurse Practitioner Family
DX: G47.33 Obstructive sleep apnea (adult) (pediatric) (principal); G47.34 Idiopathic sleep related nonobstructive alveolar hypoventilation; G47.9 Sleep disorder, unspecified; G47.19 Other hypersomnia
CPT/HCPCS: 99214

== ENCOUNTER → 2023-10-29 14:42 | Outpatient (BNVA) | payer OTHER, SELFPAY | PROVIDERS: PCP Internal Medicine; Visit Provider Nurse Practitioner Family | DX: G47.33 Obstructive sleep apnea (adult) (pediatric) (principal); G47.34 Idiopathic sleep related nonobstructive alveolar hypoventilation; G47.9 Sleep disorder, unspecified; G47.19 Other hypersomnia | CPT/HCPCS: 99212 ==

== ENCOUNTER 2023-11-01 13:40 | Outpatient (REF) | payer OTHER, SELFPAY ==
--- NOTE | ~2023-11-01 | MR_ITS ---
EXAMINATION: MR BRAIN WITHOUT AND WITH CONTRAST CLINICAL INFORMATION: 58-year-old undergoing reassessment of pituitary gland relative to findings on previous MRI. COMPARISON: 05/15/2022 MRI. TECHNIQUE: Multiplanar, multisequence MRI of the brain/sella was obtained before and after the intravenous administration of 5 mL Gadavist. FINDINGS: SELLA: Note is made of a 3 mm cystic focus on the left side of the posterior pituitary gland which is stable in appearance when compared to the previous study with no abnormal intrinsic enhancement. Remainder of the gland shows slightly heterogeneous enhancement without a focal lesion. The infundibulum is normal in thickness, relatively midline and enhances normally. The cavernous sinuses enhance symmetrically and there is normal signal void in the carotid siphons. No suprasellar or juxtasellar masses are identified. BRAIN VOLUME: Within normal limits within the limitations of qualitative assessment. STRUCTURAL: No malformations. BRAIN AND MENINGES: DWI sequence demonstrates no restricted diffusion to suggest acute or subacute cerebral ischemia. The brain parenchyma is normal in morphology and signal intensity. No intracranial mass lesions or pathologic intracranial enhancement are seen throughout the remainder of the brain. No extra-axial fluid collections, space-occupying process or mass effect. VENTRICLES AND SUBARACHNOID SPACES: The ventricular system and subarachnoid spaces are within normal range; there is no hydrocephalus. ORBITAL STRUCTURES: The visualized orbital structures are grossly unremarkable within the limitations of the study. VASCULAR: Signal voids are noted in the visualized major intracranial vessels. OSSEOUS STRUCTURES, SINUSES/MASTOIDS, EXTRACRANIAL SOFT TISSUES: Osseous marrow signal intensity appears unchanged from previous exam. There is multilevel disc space height loss and spondylosis between C2-C3 and C4-C5 inclusive stable in appearance from previous exam with type II degenerative marrow signal changes seen along the endplates at these levels unchanged. 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 MR/MR head/brain wo/w con IMPRESSION: 1. Stable 3 mm cystic focus on the left side of the posterior pituitary gland which is nonspecific. Cystic pituitary adenoma and off midline Rathke's cleft cyst would be the considerations. Follow-up as per clinical indications. 2. Otherwise normal MRI of the brain without and with contrast. 3. Upper cervical degenerative changes, stable in appearance. 4. 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
[2023-11-01] MEDS: gadobutroL 7.5 ML VIAL IVPUSH (14:48)
[2023-11-01 16:57] LABS: Thyroid Stimulating Hormone 0.72 uIU/mL (0.32-4.0)
[2023-11-02 14:49] LABS: DHEA Sulfate 28 mcg/dL (5-167)
[2023-11-06 16:14] LABS: Testosterone, Free 7.6 pg/mL (0.1-6.4); Testosterone, Total 70 ng/dL (2-45)
== END 2023-11-01 13:41 | disposition home or self-care (01) ==
LOC: HO.MRI 13:40
PROVIDERS: PCP Internal Medicine; Visit Provider Internal Medicine Endocrinology, Diabetes & Metabolism
DX: D35.2 Benign neoplasm of pituitary gland (principal); L68.0 Hirsutism
CPT/HCPCS: 36415; 70553; 82627; 84402; 84403; 84439; 84443; A9585

== ENCOUNTER 2024-01-28 13:13 | Outpatient (AMB) | payer OTHER, SELFPAY ==
--- NOTE | 2024-01-28 13:15 | A.OFFVIS_ITS ---
Intake Vital Signs 01/28/24 13:34 Height 5 ft 4 in Weight 213 lb 2 oz BMI 36.6 BP 122/80 Blood Pressure Location Lt brachial Position Sitting Pulse 87 Pulse Source Pulse Oximeter Pulse Oximetry (%) 98 Oxygen Delivery Method Room Air Intake Visit Reasons: Follow Up-CONF Intake Note: Patient presents F/U. Concerned of taking the Botox because of Chapin Palsy and migraines. Pt. trying to catch her breath while using CPAP machine. Had a ER visit last Saturday and saw the chest x-ray report , left lung collapse Aelectasis. Allergies Sulfa (Sulfonamide Antibiotics) Allergy (Mild, Verified 01/28/24 13:29) Hives adhesive tape Adverse Reaction (Mild, Verified 01/28/24 13:29) Rash Medication List - Last Reconciled 01/28/24 by SKYE Rios acetaminophen 0 mg PO acetaminophen ER (Tylenol 8 Hour) 650 mg PO Q12H celecoxib 0 mg PO cetirizine (Zyrtec) 10 mg PO DAILY PRN cholecalciferol (vitamin D3) (Vitamin D3) 50 mcg PO DAILY cyclobenzaprine 10 mg PO BID 30 days diclofenac sodium 1% 4 grams topical BID gabapentin 300 mg PO BID hydrochlorothiazide 25 mg PO DAILY ketoconazole 2% topical lisinopril 20 mg PO DAILY melatonin 3 mg PO BEDTIME PRN metoprolol tartrate 50 mg PO BID onabotulinumtoxinA (Botox) 100 units IM ONCE 12 weeks ondansetron HCl 4 mg PO Q8H PRN polyethylene glycol 3350 17 grams PO DAILY sertraline 100 mg PO DAILY trazodone 50 mg PO BEDTIME ubrogepant (Ubrelvy) 50 - 100 mg (0.5 - 1 x 100 mg) PO ONCE PRN 30 days HPI HPI Comments History of Present Illness Details 58-yr-old female presents for f/u visit. Pt denies any significant interval medical changes. Pt is wondering if she is having any benefit from the Botox for her left hemifascial spasm secondary to left Chapin's Palsy. Clarified that she still does have left check spasm, pulling, more so when stressed or chewing. She does still have left facial weakness. She wants to understand if there is any connection between her facial symptoms, neck pain, and upper arm s/s. Has bilateral neck tightness which moves into BUE, has numbness and tingling in the arms, left 5th finger numbness. She can wake up w/ numbness and tingling in the arms/hands. Also notes Venkata hand tremor, difficulty grabbing something at times. She has a h/o c-spine repair, degenerative disc disease. Is she also being followed for a right rotator cuff tear by Dr Farah, ortho at [place]. She reports daily dull headache, 3 severe days per week. She stopped Emgality thought Ubrlevy replaced. Ubrelvy has been very helpful, however has not been refilled recently. She has started to use CPAP- having some issues feeling like she cannot breathe well w/ use. Unable to access current compliance data. FORMERLY [facility], [facility] Medical History Hirsutism Vitamin D deficiency Insomnia Depression with anxiety GERD (gastroesophageal reflux disease) HLD (hyperlipidemia) Obstructive sleep apnea Urinary incontinence Post-thrombotic syndrome Congestive heart failure (CHF) Degenerative disc disease, cervical Osteoarthritis Lumbosacral radiculitis Cervical post-laminectomy syndrome Brachial radiculitis Surgical History H/O breast biopsy History of lumbar spinal fusion S/P laparoscopic surgery Hx of tubal ligation History of total knee replacement (TKR) Hx of neck surgery Hx of hand surgery Hx of colonoscopy Family History Mother Breast CA DM (diabetes mellitus) HTN (hypertension) Arthritis ESRD (end stage renal disease) Father Arthritis ESRD (end stage renal disease) Maternal Aunt Breast CA Social History Household Members: None Alcohol intake: current Alcohol intake frequency: a few times a week Patient Tobacco Use Status: Never used Tobacco Substance Use Type: Marijuana Physical Exam Vital Signs: Last Vital Signs Pulse 87 01/28/24 13:34 BP 122/80 01/28/24 13:34 Pulse Ox 98 01/28/24 13:34 Oxygen Delivery Method Room Air 01/28/24 13:34 BMI result Body Mass Index 36.6 Const General: cooperative and no acute distress Orientation/consciousness: patient oriented x3 Resp Effort & Inspection: normal respiratory effort and able to speak in complete sentences Neuro Other: Left facial hemifacial hemispasm Bilateral posterior cervical tightness. BUE negative tinnel,, phalen, medial compression test. However left medial compression test did elicit a left hand tremor. General: patient oriented x3 Cognition (Neuro): normal cognition Psych Appearance: grossly normal Mental Status: mental status grossly normal Speech and movement: Normal speech and movement present Affect: normal affect Attitude: cooperative Assessment & Plan Assessment & Plan (1) Migraine without aura: Code(s): G43.009 - Migraine without aura, not intractable, without status migrainosus (2) Hemifacial spasm of left side of face: Code(s): G51.32 - Clonic hemifacial spasm, left (3) Paresthesia and pain of both upper extremities: Code(s): R20.2 - Paresthesia of skin; M79.601 - Pain in right arm; M79.602 - Pain in left arm (4) Cervicalgia: Code(s): M54.2 - Cervicalgia (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 For hemifascial spasm: Advised pt to continue Botox q 3 months, reviewed tx is for facial spasm and not left facial weakness/asymmetry r/t h/o left chapin's palsy.. Continue to do facial exercises For neck pain and BUE paresthesias: BUE EMG/NCS. PT eval & tx Cyclobenzaprine to 10mg bid (evening and bedtime). Pt has stopped Gabapentin. f/u w/ pain management Dr Smith. For migraine w/o aura prevention: Resume Emgality?120mg sc q month Continue Riboflavin 400mg qam Continue Magnesium 400mg qhs Previous migraine trials: Topiramate was not helpful. Previously tried Amitriptyline- unhelpful. She currently takes metoprolol for HTN however this does not help migraines. Future considerations- Nurtec or qulipta for prevention. For acute migraine tx: Resume Ubrelvy as needed Contraindications- triptans d/t HTN. ? f/u in 6 months or sooner prn Orders: Orders PT Evaluation and Treatment Today G51.0 - Chapin's palsy, G51.32 - Clonic hemifacial spasm, left, M54.2 - Cervicalgia NE nerve conduction velocity Today M54.2 - Cervicalgia, M79.601 - Pain in right arm, M79.602 - Pain in left arm, R20.2 - Paresthesia of skin, R25.1 - Tremor, unspecified, Z98.890 - Other specified postprocedural states NE electromyogram (EMG) Today M54.2 - Cervicalgia, M79.601 - Pain in right arm, M79.602 - Pain in left arm, R20.2 - Paresthesia of skin, R25.1 - Tremor, unspecified, Z98.890 - Other specified postprocedural states Medications: New galcanezumab-gnlm (Emgality Pen) Loading dose: 120 mg subcu injection x2 in alternate sites (total 240 mg). To be followed by maintenance dose of 120 mg subcu q.month. 240 mg (2 mL) subcut ONCE 30 days 2 mL 0RF Refilled ubrogepant (Ubrelvy) take at onset of migraine, may repeat in 2hrs (may take w/ Tylenol) 50 - 100 mg (0.5 - 1 x 100 mg) PO ONCE 30 days PRN 16 tabs 6RF migraine headache Coding Level of Care Code Est Pt Level 4 (88220) Diagnoses Migraine without aura G43.009 Hemifacial spasm of left side of face G51.32 Paresthesia and pain of both upper extremities R20.2; M79.601; M79.602 Cervicalgia M54.2 Chapin's palsy G51.0
[2024-01-28 13:34] VITALS: BP 122/80; PULSE 87; O2SAT 98; BMI 36.6
== END 2024-01-28 14:36 | disposition home or self-care (01) ==
PROVIDERS: PCP Internal Medicine; Visit Provider Nurse Practitioner Family
DX: G43.009 Migraine without aura, not intractable, without status migrainosus (principal); G51.32 Clonic hemifacial spasm, left; R20.2 Paresthesia of skin; M79.601 Pain in right arm; M79.602 Pain in left arm; M54.2 Cervicalgia; G51.0 Bell's palsy
CPT/HCPCS: 99214

== ENCOUNTER → 2024-01-28 13:13 | Outpatient (BNVA) | payer OTHER, SELFPAY | PROVIDERS: PCP Internal Medicine; Visit Provider Nurse Practitioner Family | DX: G43.009 Migraine without aura, not intractable, without status migrainosus (principal); G51.32 Clonic hemifacial spasm, left; G51.0 Bell's palsy; R20.2 Paresthesia of skin; M79.601 Pain in right arm; M79.602 Pain in left arm; M54.2 Cervicalgia | CPT/HCPCS: 99212 ==

== ENCOUNTER 2024-02-05 14:40 | Outpatient (AMB) | payer OTHER, SELFPAY ==
--- NOTE | 2024-02-05 14:46 | A.OFFVIS_ITS ---
Intake Vital Signs 02/05/24 14:47 Height 5 ft 4 in Weight 210 lb BMI 36.0 BP 138/88 Blood Pressure Location Rt brachial Position Sitting Respiration 16 Pulse 84 Pulse Source Pulse Oximeter Pulse Oximetry (%) 97 Oxygen Delivery Method Room Air Intake Visit Reasons: Botox-conf Intake Note: Pt presents to office for Botox injections. Perforator Loader Required: No Allergies Sulfa (Sulfonamide Antibiotics) Allergy (Mild, Verified 02/05/24 14:47) Hives adhesive tape Adverse Reaction (Mild, Verified 02/05/24 14:47) Rash Medication List - Last Reconciled 02/05/24 by Florina Perla MD acetaminophen 0 mg PO acetaminophen ER (Tylenol 8 Hour) 650 mg PO Q12H celecoxib 0 mg PO cetirizine (Zyrtec) 10 mg PO DAILY PRN cholecalciferol (vitamin D3) (Vitamin D3) 50 mcg PO DAILY cyclobenzaprine 10 mg PO BID 30 days diclofenac sodium 1% 4 grams topical BID gabapentin 300 mg PO BID galcanezumab-gnlm (Emgality Pen) 240 mg (2 mL) subcut ONCE 30 days hydrochlorothiazide 25 mg PO DAILY ketoconazole 2% topical lisinopril 20 mg PO DAILY melatonin 3 mg PO BEDTIME PRN metoprolol tartrate 50 mg PO BID onabotulinumtoxinA (Botox) 100 units IM ONCE 12 weeks ondansetron HCl 4 mg PO Q8H PRN polyethylene glycol 3350 17 grams PO DAILY sertraline 100 mg PO DAILY trazodone 50 mg PO BEDTIME ubrogepant (Ubrelvy) 50 - 100 mg (0.5 - 1 x 100 mg) PO ONCE PRN 30 days HPI HPI Comments History of Present Illness Details 58y/o female comes for treatment of her left hemifacial spasm with botox she reports increase in neck pain and radiating pain to her left little finger .she has numbness and tingling in her left hand . EMG was ordered she is not taking gabapentin anymore. Effectiveness of last two botox: Change in intensity of spasms- decreased Change in frequency of spasms- decreased Changes in quality of life- improved Have at least three months elapsed since last treatment (Last botox date - frequency of injections)?- 3 months ago Botulinum toxin type A 100 units Lot no C [id number] X 1 Exp 02/2026 was diluted with 1 cc of normal saline at a concentration of 5 units in 0.1 cc. Side effects were discussed and an informed consent was obtained. Muscles injected left Lateral canthus - 10 units each left Lateral Lower eyelid-10units each left zygomaticus 10 units left Nasolabial fold 10 units each left mentalis 5 units each left upper lip 5 units Venkata temporlais 20 units each Total used 90units discarded 10 units PFSH Medical History Radiculopathy Cervical radiculopathy at C7 Hirsutism Vitamin D deficiency Insomnia Depression with anxiety GERD (gastroesophageal reflux disease) HLD (hyperlipidemia) Obstructive sleep apnea Urinary incontinence Post-thrombotic syndrome Congestive heart failure (CHF) Degenerative disc disease, cervical Osteoarthritis Lumbosacral radiculitis Cervical post-laminectomy syndrome Brachial radiculitis Surgical History H/O breast biopsy History of lumbar spinal fusion S/P laparoscopic surgery Hx of tubal ligation History of total knee replacement (TKR) Hx of neck surgery Hx of hand surgery Hx of colonoscopy Family History Mother Breast CA DM (diabetes mellitus) HTN (hypertension) Arthritis ESRD (end stage renal disease) Father Arthritis ESRD (end stage renal disease) Maternal Aunt Breast CA Social History Household Members: None Alcohol intake: current Alcohol intake frequency: a few times a week Patient Tobacco Use Status: Never used Tobacco Substance Use Type: Marijuana Physical Exam Vital Signs: Last Vital Signs Pulse 84 02/05/24 14:47 Resp 16 02/05/24 14:47 BP 138/88 02/05/24 14:47 Pulse Ox 97 02/05/24 14:47 Oxygen Delivery Method Room Air 02/05/24 14:47 BMI result Body Mass Index 36.0 Const Other: left hemifacial spasm Office Procedures Botulinum toxin Injection 43887 - Facial Nerve Procedure code (CPT) selection complete Office Meds onabotulinumtoxinA 100 unit solution for injection Performing Provider: Florina Perla MD Performing Location: [facility] Administered by: Florina Perla MD on 02/05/24 15:45 Dose Route Admin Location Dispensed Lot Number Expiration Date NDC Table Games Supervisor 90 unit subcut 100 units [id number] 02/18/26 8870-2434-20 [employer]OTOX Comments: see HPI Assessment & Plan Assessment & Plan (1) Hemifacial spasm of left side of face: Code(s): G51.32 - Clonic hemifacial spasm, left Plan Patient tolerated the procedure well she will call with any side effects MRI C spine Restart gabapentin 300mg bid Cyclobenzaprine 10mg qhs Orders: Orders MR cervical spine wo con Today M54.10 - Radiculopathy, site unspecified, M54.12 - Radiculopathy, cervical region AMB Botulinum toxin Injection - Patient Supplied Today G51.32 - Clonic hemifacial spasm, left Medications: New onabotulinumtoxinA 100 units subcut ONCE 1 ea 0RF hemifacial spasm G51.32 - Clonic hemifacial spasm, left Coding Level of Care Code Est Pt Level 2 (06333) Diagnoses Hemifacial spasm of left side of face G51.32 CPT Codes Botox Injection - Botox 2: 35641 - Facial Nerve ([id number])
[2024-02-05 14:47] VITALS: BP 138/88; PULSE 84; RESP 16; O2SAT 97; BMI 36.0
== END 2024-02-05 15:16 | disposition home or self-care (01) ==
PROVIDERS: PCP Internal Medicine; Visit Provider Psychiatry & Neurology Neurology
DX: G51.32 Clonic hemifacial spasm, left (principal)
CPT/HCPCS: 64612

== ENCOUNTER → 2024-02-05 14:40 | Outpatient (BNVA) | payer OTHER, SELFPAY | PROVIDERS: PCP Internal Medicine; Visit Provider Psychiatry & Neurology Neurology | CPT/HCPCS: 64612; 99211; J0585 ==

== ENCOUNTER 2024-02-19 14:51 | Outpatient (REF) | payer OTHER, SELFPAY ==
--- NOTE | 2024-02-19 14:53 | EMG_ITS ---
Chief complaint: Left shoulder pain radiating down, tingling on left upper extremity. Milder symptoms on right side. History of cervical fusion. History of left Chapin's palsy and hemifacial spasms. Reason for referral: Evaluate for neuropathy versus radiculopathy Referred by: Sravanthi Doss NP Procedure done: Bilateral upper extremities NCS/EMG Precautions and/or limitations: Past cervical fusion. The limb temperature was monitored continuously and remained between 32-36 degrees C during the performance of the NCS. Nerve Conduction Studies Anti Sensory Summary Table ?Stim Site NR Onset (ms) Norm Onset (ms) Peak (ms) Norm Peak (ms) O-P Amp (?V) Norm O-P Amp Site1 Site2 Delta-0 (ms) Dist (cm) Nate (m/s) Norm Nate (m/s) Left Median Anti Sensory (2nd Digit) Wrist ? 2.3 2.8 <3.6 33.1 >10 Wrist 2nd Digit 2.3 14.0 61 Right Median Anti Sensory (2nd Digit) Wrist ? 2.2 2.8 <3.6 12.9 >10 Wrist 2nd Digit 2.2 14.0 64 Left Radial Anti Sensory (Thumb) Forearm ? 1.5 2.1 <3.1 34.6 Forearm Thumb 1.5 0.0 Left Ulnar Anti Sensory (5th Digit) Wrist ? 2.2 2.8 <3.7 14.2 >15.0 Wrist 5th Digit 2.2 14.0 64 Right Ulnar Anti Sensory (5th Digit) Wrist ? 2.4 2.8 <3.7 22.1 >15.0 Wrist 5th Digit 2.4 14.0 58 Motor Summary Table ?Stim Site NR Onset (ms) Norm Onset (ms) O-P Amp (mV) Norm O-P Amp iAmp (mV) Amp (1st) (%) Site1 Site2 Delta-0 (ms) Dist (cm) Nate (m/s) Norm Nate (m/s) Left Median Motor (Abd Poll Brev) Wrist ? 3.0 <3.9 5.3 >4.5 6.4 100.0 Elbow Wrist 3.5 20.0 57 >45 Elbow ? 6.5 5.0 6.2 94.3 Right Median Motor (Abd Poll Brev) Wrist ? 3.0 <3.9 6.0 >4.5 6.9 100.0 Elbow Wrist 3.6 21.0 58 >45 Elbow ? 6.6 4.7 5.5 78.3 Left Ulnar Motor (Abd Dig Minimi) Wrist ? 2.8 <3.0 8.1 >5 10.2 100.0 B Elbow Wrist 3.0 19.0 63 >45 B Elbow ? 5.8 8.5 10.5 104.9 A Elbow B Elbow 1.5 10.0 67 >45 A Elbow ? 7.3 8.1 10.1 100.0 Right Ulnar Motor (Abd Dig Minimi) Wrist ? 2.5 <3.0 8.7 >5 10.8 100.0 B Elbow Wrist 3.3 19.0 58 >45 B Elbow ? 5.8 9.0 11.5 103.4 A Elbow B Elbow 1.6 10.0 62 >45 A Elbow ? 7.4 8.6 10.9 98.9 EMG ?Side Muscle Nerve Root Ins Act Fibs Psw Amp Dur Poly Recrt Int Pat Comment Right 1stDorInt Ulnar C8-T1 Nml Nml Nml Nml Nml 0 Nml Complete Right FlexCarRad Median C6-7 Nml Nml Nml Nml Nml 0 Nml Complete Right Biceps Musculocut C5-6 Nml Nml Nml Nml Nml 0 Nml Complete Right Triceps Radial C6-7-8 Nml Nml Nml Nml Nml 0 Nml Complete Right Deltoid Axillary C5-6 Nml Nml Nml Nml Nml 0 Nml Complete Left 1stDorInt Ulnar C8-T1 Nml Nml Nml Nml Nml 0 Nml Complete Left FlexCarRad Median C6-7 Nml Nml Nml Nml Nml 0 Nml Complete Left Biceps Musculocut C5-6 Nml Nml Nml Nml Nml 0 Nml Complete Left Triceps Radial C6-7-8 Nml Nml Nml Nml Nml 0 Nml Complete Left Deltoid Axillary C5-6 Nml Nml Nml Nml Nml 0 Nml Complete FINDINGS: All motor and sensory nerves tested showed normal latencies, amplitudes and conduction velocities. Concentric needle EMG was performed in selected muscles of the bilateral upper extremities. Study did not reveal signs of electric abnormalities as shown in the table below. IMPRESSION: 1. This is a normal study. 2. There is no electrodiagnostic evidence for median neuropathy, ulnar neuropathy, brachial plexopathy, or cervical radiculopathy. Thank you for your kind referral. Shannan Roper MD, MARLIN Board Certified, [place] [employer] and Rehabilitation (ABPMR) Board Certified, [place] Board [employer] Electrodiagnostic Medicine (ABEM) CODIN 90399 x 2 MTDD
== END 2024-02-19 14:52 | disposition home or self-care (01) ==
LOC: HO.NEURO 14:51
PROVIDERS: PCP Internal Medicine; Visit Provider Nurse Practitioner Family
DX: R20.2 Paresthesia of skin (principal); M79.601 Pain in right arm; M79.602 Pain in left arm; R25.1 Tremor, unspecified; M54.2 Cervicalgia; Z98.890 Other specified postprocedural states
CPT/HCPCS: 95886; 95911

== ENCOUNTER → 2024-02-19 14:53 | Outpatient (BNV) | payer OTHER, SELFPAY | PROVIDERS: PCP Internal Medicine; Visit Provider Physical Medicine & Rehabilitation | DX: M25.512 Pain in left shoulder (principal); M25.511 Pain in right shoulder; R20.2 Paresthesia of skin | CPT/HCPCS: 95886; 95911 ==

== ENCOUNTER 2024-02-26 19:04 | Outpatient (REF) | payer OTHER, SELFPAY ==
--- NOTE | ~2024-02-26 | MR_ITS ---
EXAMINATION: MR CERVICAL SPINE WITHOUT CONTRAST CLINICAL INFORMATION: Radiculopathy. Neck pain. COMPARISON: None available. TECHNIQUE: Multiplanar, multisequential imaging of the cervical spine was performed without contrast. FINDINGS: VERTEBRAL BODIES AND PARASPINAL SOFT TISSUES: The marrow signal is heterogeneous with multilevel fatty marrow endplate changes. Significant disc space narrowing is present throughout the imaged cervical and upper thoracic spine. The patient is status post a previous anterior cervical discectomy and fusion with hardware instrumentation at the C6-C7 level. Mild leftward cervical spinal curvature noted. No subluxations are visible. No marrow or soft tissue edema identified. The paraspinal soft tissues are normal. The vertebral artery flow-voids are maintained. The imaged lung apices are grossly clear. CERVICOMEDULLARY JUNCTION AND VISUALIZED POSTERIOR FOSSA: The craniovertebral junction and imaged portions of the brain parenchyma appear normal. No cord signal abnormality or syrinx is seen. SPINAL LEVELS: C2-C3: Mild posterior disc bulge and facet arthropathy without central canal stenosis. Severe right foraminal narrowing. C3-C4: Disc-osteophyte complex with ochtomde-ln-rpwldv foraminal narrowing also present. No central canal stenosis. C4-C5: Shallow disc bulge with endplate spurring. No central canal stenosis. Mild foraminal narrowing. C5-C6: Mild endplate ridging. No focal disc protrusion or central canal stenosis. Patent neural foramina. C6-C7: Anterior cervical fusion hardware in place. No central canal stenosis or foraminal narrowing. C7-T1: Mild disc bulge and uncovertebral joint spurring without central canal stenosis. Significant bilateral foraminal narrowing. Multilevel disc-osteophyte complexes visible at the upper thoracic levels with severe bilateral foraminal narrowing at the T1-T2 level. No significant central canal stenosis otherwise seen. MR/MR cervical spine wo con IMPRESSION: Severe cervical and upper thoracic spondylosis and reversal of the normal cervical lordosis. Status post previous anterior cervical discectomy and fusion at the C6-C7 level. No significant central canal stenosis. Multilevel foraminal narrowing due to osseous spurring and disc-osteophyte complexes. No cord signal abnormality.
== END 2024-02-26 19:05 | disposition home or self-care (01) ==
LOC: HO.MRI 19:04
PROVIDERS: PCP Internal Medicine; Visit Provider Psychiatry & Neurology Neurology
DX: M54.12 Radiculopathy, cervical region (principal)
CPT/HCPCS: 72141

== ENCOUNTER 2024-05-08 07:41 | Outpatient (AMB) | payer OTHER, SELFPAY ==
--- NOTE | 2024-05-08 07:42 | A.OFFVIS_ITS ---
Intake Visit Reasons: 3 mo f/u-Unable to lvm Intake Note: Patient presents for 3 month follow up.patient not sure how to take ubrelvy and wants to know what happened to the emgality medication. her migraines are not as bad as they use to be. Allergies Sulfa (Sulfonamide Antibiotics) Allergy (Mild, Verified 02/05/24 14:47) Hives adhesive tape Adverse Reaction (Mild, Verified 02/05/24 14:47) Rash Medication List - Last Reconciled 05/08/24 by SKYE Rios acetaminophen 0 mg PO acetaminophen ER (Tylenol 8 Hour) 650 mg PO Q12H celecoxib 0 mg PO cetirizine (Zyrtec) 10 mg PO DAILY PRN cholecalciferol (vitamin D3) (Vitamin D3) 50 mcg PO DAILY cyclobenzaprine 10 mg PO BID 30 days diclofenac sodium 1% 4 grams topical BID gabapentin 300 mg PO BID galcanezumab-gnlm (Emgality Pen) 240 mg (2 mL) subcut ONCE 30 days hydrochlorothiazide 25 mg PO DAILY ketoconazole 2% topical lisinopril 20 mg PO DAILY melatonin 3 mg PO BEDTIME PRN metoprolol tartrate 50 mg PO BID onabotulinumtoxinA (Botox) 100 units IM ONCE 12 weeks ondansetron HCl 4 mg PO Q8H PRN polyethylene glycol 3350 17 grams PO DAILY sertraline 100 mg PO DAILY trazodone 50 mg PO BEDTIME ubrogepant (Ubrelvy) 50 - 100 mg (0.5 - 1 x 100 mg) PO ONCE PRN 30 days HPI Comments Details: 58-yr-old female presents for f/u televideo visit via [employer]. She underwent left TKR in February. Afterwards she had right sciatic pain, so she was near bed bound x's 3 weeks. She had a rehab stay at [facility], and is back home. Pt reports she has been seeing neurosurgery at [facility], Dr Hayward- for her radiating neck pain. Her BUE EMG/NCS was normal. She has f/u w/ endocrinology next week for micro pituitary cyst. 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 Her migraine attacks are a bit better, a bit less intense. Her Gabapentin dose was increased to 300mg and 600mg qhs. She is using the Ubrlevy prn. Has not started Emaglity yet- has not rec'd. She is compliant w/ her CPAP. Compliance Report Usage 04/07/2024 - 05/06/2024 Usage days 30/30 days (100%) Usage days >= 4 hours 29 days (97%) Uses stays < 4 hours 1 days (3%) AirSense 10 AutoSet Serial number [id number] Mode CPAP Set pressure 13 cmH2O EPR Fulltime EPR level 2 Residual events per hour: AHI: 12.3 PFSH Medical History Radiculopathy Cervical radiculopathy at C7 Hirsutism Vitamin D deficiency Insomnia Depression with anxiety GERD (gastroesophageal reflux disease) HLD (hyperlipidemia) Obstructive sleep apnea Urinary incontinence Post-thrombotic syndrome Congestive heart failure (CHF) Degenerative disc disease, cervical Osteoarthritis Lumbosacral radiculitis Cervical post-laminectomy syndrome Brachial radiculitis Surgical History H/O breast biopsy History of lumbar spinal fusion S/P laparoscopic surgery Hx of tubal ligation History of total knee replacement (TKR) Hx of neck surgery Hx of hand surgery Hx of colonoscopy Family History Mother Breast CA DM (diabetes mellitus) HTN (hypertension) Arthritis ESRD (end stage renal disease) Father Arthritis ESRD (end stage renal disease) Maternal Aunt Breast CA Social History Household Members: None Alcohol intake: current Alcohol intake frequency: a few times a week Patient Tobacco Use Status: Never used Tobacco Substance Use Type: Marijuana Physical Exam Const General: cooperative and no acute distress Orientation/consciousness: patient oriented x3 Resp Effort & Inspection: normal respiratory effort and able to speak in complete sentences Neuro Other: Left hemifascial spasm/droop General: patient oriented x3 Cognition (Neuro): normal cognition Psych Appearance: grossly normal Mental Status: mental status grossly normal Speech and movement: Normal speech and movement present Affect: normal affect Attitude: cooperative Telehealth Telehealth Telehealth Platform: [facility] Location of provider rendering services: practice address Location of patient: address on file Patient Identification confirmed using: Name, : Yes Telehealth method: video Patient verbally consented to treatment: Yes Patient verbally consented to billing insurance company: Yes Patient informed of any privacy concerns related to visit: Yes Minutes spent on Phone/Video with Pt.: 19 Assessment & Plan Assessment & Plan (1) Migraine without aura: Code(s): G43.009 - Migraine without aura, not intractable, without status migrainosus Category: Medical (2) Hemifacial spasm of left side of face: Code(s): G51.32 - Clonic hemifacial spasm, left Category: Medical (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 Will request 30 day PAP compliance report in 1 month to monitor residual AHI, as current residual AHI is a bit elevated at 12.9/hr- though this is significantly less than her baseline severe ASHKAN, will monitor to ensure not increasing further. ? For hemifascial spasm: Continue Botox q 3 months, reviewed tx is for facial spasm and not left facial weakness/asymmetry r/t h/o left chapin's palsy.. Continue to do facial exercises ? For neck pain and BUE paresthesias: BUE EMG/NCS- normal. PT exercises/ Cyclobenzaprine to 10mg bid (evening and bedtime). Continue Gabapentin 300mg qam and 600mg qhs. f/u w/ neurosurgery as scheduled. ? For migraine w/o aura prevention: Resume Emgality?240mg sc x's 1- as last dose was > 3 months ago. Then 120mg sc q month Continue Riboflavin 400mg qam Continue Magnesium 400mg qhs Previous migraine trials: Topiramate was not helpful. Previously tried Amitriptyline- unhelpful. She currently takes metoprolol for HTN however this does not help migraines. Future considerations- Nurtec or qulipta for prevention. ? For acute migraine tx: Continue Ubrelvy as needed Contraindications- triptans d/t HTN. For pituitary microadenoma- F/u w/ endocrinology as scheduled. ? ? f/u in 6 months or sooner prn Medications: Changed From gabapentin 300 mg PO BID To gabapentin orally 2 times a day; Refilled galcanezumab-gnlm (Emgality Pen) Loading dose: 120 mg subcu injection x2 in alternate sites (total 240 mg). To be followed by maintenance dose of 120 mg subcu q.month. 240 mg (2 mL) subcut ONCE 2 mL 0RF 30 days Coding Level of Care Code Tele Est Pt Level 4 (69884) Diagnoses Migraine without aura G43.009 Hemifacial spasm of left side of face G51.32 Chapin's palsy G51.0 Severe obstructive sleep apnea G47.33 Pituitary microadenoma D35.2
== END 2024-05-08 08:13 | disposition home or self-care (01) ==
LOC: HO.HSMS 07:41
PROVIDERS: PCP Internal Medicine; Visit Provider Nurse Practitioner Family
DX: G43.009 Migraine without aura, not intractable, without status migrainosus (principal); G51.32 Clonic hemifacial spasm, left; G51.0 Bell's palsy; G47.33 Obstructive sleep apnea (adult) (pediatric); D35.2 Benign neoplasm of pituitary gland
CPT/HCPCS: 99214

== ENCOUNTER → 2024-05-08 07:41 | Outpatient (BNVA) | payer OTHER, SELFPAY | PROVIDERS: PCP Internal Medicine; Visit Provider Nurse Practitioner Family ==

== ENCOUNTER 2024-06-01 13:30 | Outpatient (REF) | payer OTHER, SELFPAY ==
[2024-06-02 17:56] LABS: Creatinine, mg/dL 66.85
[2024-06-02 22:22] LABS: Creatinine, 24Hr Urine 1.2 G/Day (1.0-2.0); Total Volume 24 Hour Urine 1775 mL
[2024-06-10 19:04] LABS: Cortisol Free, 24 Hr Urine 7.2 mcg/24 h (4.0-50.0); Total Volume, 24 Hr Urine 1775 mL
== END 2024-06-01 13:31 | disposition home or self-care (01) ==
LOC: HO.LNP 13:30
PROVIDERS: Visit Provider Internal Medicine Endocrinology, Diabetes & Metabolism
DX: D35.2 Benign neoplasm of pituitary gland (principal)
CPT/HCPCS: 82530; 82570

== ENCOUNTER 2024-06-04 14:58 | Outpatient (AMB) | payer OTHER, SELFPAY ==
[2024-06-04 15:01] VITALS: BP 112/78; PULSE 99; BMI 38.1
--- NOTE | 2024-06-04 15:01 | MHC.OFFVIS ---
Vital Signs 06/04/24 15:01 Height 5 ft 4 in Weight 222 lb 3.615 oz BMI 38.1 BP 112/78 Blood Pressure Location Lt brachial Position Sitting Pulse 99 Pulse Source Pulse Oximeter Intake Visit Reasons: f/u pituitary adenoma and hirsuitism Intake Note: Patient present today for Pituitary Adenoma and Hirsuitism follow up. [address] Service Required: No Accompanied by: Self / Same As Patient Allergies Sulfa (Sulfonamide Antibiotics) Allergy (Mild, Verified 06/04/24 15:05) Hives adhesive tape Adverse Reaction (Mild, Verified 06/04/24 15:05) Rash HPI Comments Details: This is a 58-year-old female found to have an? incidental pituitary micro adenoma. She denies any galactorrhea. She denies any symptoms of acromegaly . She denies any sx of Fransico's Syndrome except for hair growth but no easy bruising . MRI done for Chapin's Palsy . Postmenopausal since early 30s There is a 3 mm focus of hypoenhancement within the left spect of the pituitary gland that could reflect a pituitary microadenoma which can be correlated with endocrine function tests. There is no sellar/suprasellar mass effect. He does complain of gradual increase in hair growth on the face. She is incontinent of urine and does not desire to go in spironolactone future [facility] Medical History Radiculopathy Cervical radiculopathy at C7 Hirsutism Vitamin D deficiency Insomnia Depression with anxiety GERD (gastroesophageal reflux disease) HLD (hyperlipidemia) Obstructive sleep apnea Urinary incontinence Post-thrombotic syndrome Congestive heart failure (CHF) Degenerative disc disease, cervical Osteoarthritis Lumbosacral radiculitis Cervical post-laminectomy syndrome Brachial radiculitis Surgical History H/O breast biopsy History of lumbar spinal fusion S/P laparoscopic surgery Hx of tubal ligation History of total knee replacement (TKR) Hx of neck surgery Hx of hand surgery Hx of colonoscopy Family History Mother Breast CA DM (diabetes mellitus) HTN (hypertension) Arthritis ESRD (end stage renal disease) Father Arthritis ESRD (end stage renal disease) Maternal Aunt Breast CA Social History Household Members: None Alcohol intake: current Alcohol intake frequency: a few times a week Patient Tobacco Use Status: Never used Tobacco Substance Use Type: Marijuana Physical Exam Vital Signs: Last Vital Signs Pulse 99 06/04/24 15:01 BP 112/78 06/04/24 15:01 BMI result Body Mass Index 38.1 Const Other: No acromegalic or Cushingoid features. thyroid gland is normal size weighs about 15 g . Lungs are clear to auscultation. Heart is S1-S2. Abdominal exam is benign Assessment & Plan Assessment & Plan (1) Pituitary microadenoma: Code(s): D35.2 - Benign neoplasm of pituitary gland Category: Medical Plan: This 57-year-old black female with a history of incidentally discovered? Pituitary micro adenoma most likely non- secretory. Fransico's has ruled out with a normal 24 hour urine . Repeat MRI showed stable 3 mm adenoma No need for any further endocrine workup . Could consider repeat MRI of the pituitary about a year (2) Hirsutism: Code(s): L68.0 - Hirsutism Category: Medical Plan: Laboratory workup shows increase testosterone consistent with polycystic ovarian. Patient had declined use of spironolactone because of urinary incontinence Orders: Orders Basic Metabolic Panel 10 Days L68.0 - Hirsutism Referrals Nutrition/Dietitian Referral E28.2 - Polycystic ovarian syndrome, L68.0 - Hirsutism Medications: New spironolactone 100 mg PO DAILY 30 tabs 5RF Coding Level of Care Code Est Pt Level 3 (49430) Diagnoses Pituitary microadenoma D35.2 Hirsutism L68.0
== END 2024-06-04 15:36 | disposition home or self-care (01) ==
PROVIDERS: PCP Internal Medicine; Visit Provider Internal Medicine Endocrinology, Diabetes & Metabolism
DX: D35.2 Benign neoplasm of pituitary gland (principal); L68.0 Hirsutism
CPT/HCPCS: 99213

== ENCOUNTER → 2024-06-04 14:58 | Outpatient (BNVA) | payer OTHER, SELFPAY | PROVIDERS: PCP Internal Medicine; Visit Provider Internal Medicine Endocrinology, Diabetes & Metabolism | DX: E28.2 Polycystic ovarian syndrome (principal); D35.2 Benign neoplasm of pituitary gland; L68.0 Hirsutism; Z78.0 Asymptomatic menopausal state | CPT/HCPCS: 99212 ==

== ENCOUNTER 2024-06-15 14:22 | Outpatient (AMB) | payer OTHER, SELFPAY ==
--- NOTE | 2024-06-15 14:34 | MHC.OFFVIS ---
Vital Signs 06/15/24 14:36 Height 5 ft 4 in Weight 222 lb BMI 38.1 BP 122/76 Blood Pressure Location Rt brachial Position Sitting Respiration 16 Pulse 61 Pulse Source Pulse Oximeter Pulse Oximetry (%) 98 Oxygen Delivery Method Room Air Intake Visit Reasons: Botox - Confirmed Intake Note: Pt presents to the office for Botox injections for left hemifacial spasm. Communication Skills Instructor Required: No Allergies Sulfa (Sulfonamide Antibiotics) Allergy (Mild, Verified 06/15/24 14:35) Hives adhesive tape Adverse Reaction (Mild, Verified 06/15/24 14:35) Rash Medication List - Last Reconciled 06/15/24 by Florina Perla MD acetaminophen 500 mg PO Q6H PRN acetaminophen ER (Tylenol 8 Hour) 650 mg PO Q12H atorvastatin 10 mg PO DAILY celecoxib 0 mg PO cetirizine (Zyrtec) 10 mg PO DAILY PRN cholecalciferol (vitamin D3) (Vitamin D3) 50 mcg PO DAILY cyclobenzaprine 10 mg PO BID 30 days diclofenac sodium 1% 4 grams topical BID gabapentin orally 2 times a day; galcanezumab-gnlm (Emgality Pen) 240 mg (2 mL) subcut ONCE 30 days hydrochlorothiazide 25 mg PO DAILY ketoconazole 2% topical lisinopril 30 mg PO DAILY melatonin 3 mg PO BEDTIME PRN metoprolol tartrate 50 mg PO BID onabotulinumtoxinA (Botox) 100 units IM ONCE 12 weeks ondansetron HCl 4 mg PO Q8H PRN polyethylene glycol 3350 17 grams PO DAILY pyridoxine (vitamin B6) (Vitamin B-6) 250 mg PO DAILY sertraline 100 mg PO DAILY spironolactone 100 mg PO DAILY thiamine HCl (vitamin B1) mg PO tramadol 50 mg PO QID PRN trazodone 50 mg PO BEDTIME ubrogepant (Ubrelvy) 50 - 100 mg (0.5 - 1 x 100 mg) PO ONCE PRN 30 days HPI Comments Details: 58y/o female comes for treatment of her left hemifacial spasm with botox she reports increase in neck pain and radiating pain to her left little finger .she has numbness and tingling in her left hand . EMG was ordered she is not taking gabapentin anymore. Effectiveness of last two botox: Change in intensity of spasms- decreased Change in frequency of spasms- decreased Changes in quality of life- improved Have at least three months elapsed since last treatment (Last botox date - frequency of injections)?- 4 months ago Botulinum toxin type A 100 units Lot no [id number] X 1 Exp 05/2026 was diluted with 1 cc of normal saline at a concentration of 5 units in 0.1 cc. Side effects were discussed and an informed consent was obtained. Muscles injected left Lateral canthus - 10 units each left Lateral Lower eyelid-10units each left zygomaticus 10 units left Nasolabial fold 10 units each left mentalis 5 units each left upper lip 5 units Venkata temporlais 20 units each Total used 90units discarded 10 units PFSH Medical History Radiculopathy Cervical radiculopathy at C7 Hirsutism Vitamin D deficiency Insomnia Depression with anxiety GERD (gastroesophageal reflux disease) HLD (hyperlipidemia) Obstructive sleep apnea Urinary incontinence Post-thrombotic syndrome Congestive heart failure (CHF) Degenerative disc disease, cervical Osteoarthritis Lumbosacral radiculitis Cervical post-laminectomy syndrome Brachial radiculitis Surgical History Hx of knee surgery H/O breast biopsy History of lumbar spinal fusion S/P laparoscopic surgery Hx of tubal ligation History of total knee replacement (TKR) Hx of neck surgery Hx of hand surgery Hx of colonoscopy Family History Mother Breast CA DM (diabetes mellitus) HTN (hypertension) Arthritis ESRD (end stage renal disease) Father Arthritis ESRD (end stage renal disease) Maternal Aunt Breast CA Social History Household Members: None Alcohol intake: current Alcohol intake frequency: a few times a week Patient Tobacco Use Status: Never used Tobacco Substance Use Type: Marijuana Physical Exam Vital Signs: Last Vital Signs Pulse 61 06/15/24 14:36 Resp 16 06/15/24 14:36 BP 122/76 06/15/24 14:36 Pulse Ox 98 06/15/24 14:36 Oxygen Delivery Method Room Air 06/15/24 14:36 BMI result Body Mass Index 38.1 Const Other: left hemifacial spasm Office Procedures Botulinum toxin Injection 38650 - Facial Nerve Procedure code (CPT) selection complete Office Meds onabotulinumtoxinA 100 unit solution for injection Performing Provider: Florina Perla MD Performing Location: [facility] [place] Administered by: Florina Perla MD on 06/15/24 15:39 Dose Route Admin Location Dispensed Lot Number Expiration Date [employer] 90 unit subcut 100 units [id number] 05/21/26 8245-6169-19 ALLERGAN/BOTOX Assessment & Plan Assessment & Plan (1) Hemifacial spasm of left side of face: Code(s): G51.32 - Clonic hemifacial spasm, left Category: Medical Plan Patient tolerated the procedure well she will call with any side effects Orders: Orders AMB Botulinum toxin Injection - Patient Supplied Today G51.32 - Clonic hemifacial spasm, left Medications: New onabotulinumtoxinA 100 units subcut ONCE 1 ea 0RF left hemifacial spasm G51.32 - Clonic hemifacial spasm, left Coding Level of Care Code Est Pt Level 1 (94732) Diagnoses Hemifacial spasm of left side of face G51.32 CPT Codes Botox Injection - Botox 2: 34184 - Facial Nerve ([id number])
[2024-06-15 14:36] VITALS: BP 122/76; PULSE 61; RESP 16; O2SAT 98; BMI 38.1
== END 2024-06-15 15:23 | disposition home or self-care (01) ==
PROVIDERS: PCP Internal Medicine; Visit Provider Psychiatry & Neurology Neurology
DX: G51.32 Clonic hemifacial spasm, left (principal)
CPT/HCPCS: 64612

== ENCOUNTER → 2024-06-15 14:22 | Outpatient (BNVA) | payer OTHER, SELFPAY | PROVIDERS: PCP Internal Medicine; Visit Provider Psychiatry & Neurology Neurology | DX: G51.32 Clonic hemifacial spasm, left (principal) | CPT/HCPCS: 64612; 99211; J0585 ==

== ENCOUNTER 2024-10-26 10:53 | Outpatient (AMB) | payer OTHER, SELFPAY ==
[2024-10-26 10:54] VITALS: BP 140/94; PULSE 92; O2SAT 99; BMI 37.3
--- NOTE | 2024-10-26 10:54 | MHC.OFFVIS ---
Vital Signs 10/26/24 10:54 Height 5 ft 4 in Weight 217 lb 2 oz BMI 37.3 BP 140/94 H Blood Pressure Location Lt brachial Position Sitting Pulse 92 Pulse Source Pulse Oximeter Pulse Oximetry (%) 99 Oxygen Delivery Method Room Air Intake Visit Reasons: Botox Allergies Sulfa (Sulfonamide Antibiotics) Allergy (Mild, Verified 10/26/24 10:56) Hives adhesive tape Adverse Reaction (Mild, Verified 10/26/24 10:56) Rash Medication List - Last Reconciled 10/26/24 by Florina Perla MD acetaminophen 500 mg PO Q6H PRN acetaminophen ER (Tylenol 8 Hour) 650 mg PO Q12H atorvastatin 10 mg PO DAILY celecoxib 0 mg PO cetirizine (Zyrtec) 10 mg PO DAILY PRN cholecalciferol (vitamin D3) (Vitamin D3) 50 mcg PO DAILY cyclobenzaprine 10 mg PO BID 30 days diclofenac sodium 1% 4 grams topical BID gabapentin orally 2 times a day; galcanezumab-gnlm (Emgality Pen) 240 mg (2 mL) subcut ONCE 30 days hydrochlorothiazide 25 mg PO DAILY ketoconazole 2% topical lisinopril 30 mg PO DAILY melatonin 3 mg PO BEDTIME PRN metoprolol tartrate 50 mg PO BID onabotulinumtoxinA (Botox) 100 units IM ONCE 12 weeks ondansetron HCl 4 mg PO Q8H PRN polyethylene glycol 3350 17 grams PO DAILY pyridoxine (vitamin B6) (Vitamin B-6) 250 mg PO DAILY sertraline 100 mg PO DAILY thiamine HCl (vitamin B1) mg PO tramadol 50 mg PO QID PRN trazodone 50 mg PO BEDTIME ubrogepant (Ubrelvy) 50 - 100 mg (0.5 - 1 x 100 mg) PO ONCE PRN 30 days HPI Comments Details: 59y/o female comes for treatment of her left hemifacial spasm with botox she reports increase in neck pain and radiating pain to her left little finger .she has numbness and tingling in her left hand . EMG was ordered she is not taking gabapentin anymore. Effectiveness of last two botox: Change in intensity of spasms- decreased Change in frequency of spasms- decreased Changes in quality of life- improved Have at least three months elapsed since last treatment (Last botox date - frequency of injections)?- 4 months ago Botulinum toxin type A 100 units Lot no [id number] X 1 Exp 11/2026 was diluted with 1 cc of normal saline at a concentration of 5 units in 0.1 cc. Side effects were discussed and an informed consent was obtained. Muscles injected left Lateral canthus - 10 units each left Lateral Lower eyelid-10units each left zygomaticus 10 units left Nasolabial fold 10 units each Venkata temporlais 20 units each Total used 80units discarded 20 units PFSH Medical History Radiculopathy Cervical radiculopathy at C7 Hirsutism Vitamin D deficiency Insomnia Depression with anxiety GERD (gastroesophageal reflux disease) HLD (hyperlipidemia) Obstructive sleep apnea Urinary incontinence Post-thrombotic syndrome Congestive heart failure (CHF) Degenerative disc disease, cervical Osteoarthritis Lumbosacral radiculitis Cervical post-laminectomy syndrome Brachial radiculitis Surgical History Hx of knee surgery H/O breast biopsy History of lumbar spinal fusion S/P laparoscopic surgery Hx of tubal ligation History of total knee replacement (TKR) Hx of neck surgery Hx of hand surgery Hx of colonoscopy Family History Mother Breast CA DM (diabetes mellitus) HTN (hypertension) Arthritis ESRD (end stage renal disease) Father Arthritis ESRD (end stage renal disease) Maternal Aunt Breast CA Social History Household Members: None Alcohol intake: current Alcohol intake frequency: a few times a week Patient Tobacco Use Status: Never used Tobacco Substance Use Type: Marijuana Physical Exam Vital Signs: Last Vital Signs Pulse 92 10/26/24 10:54 BP 140/94 H 10/26/24 10:54 Pulse Ox 99 10/26/24 10:54 Oxygen Delivery Method Room Air 10/26/24 10:54 BMI result Body Mass Index 37.3 Const Other: left hemifacial spasm Office Procedures Botulinum toxin Injection 02690 - Facial Nerve Procedure code (CPT) selection complete Office Meds onabotulinumtoxinA 100 unit solution for injection Performing Provider: Florina Perla MD Performing Location: [facility] [place] [facility] Administered by: Florina Perla MD on 10/26/24 11:27 Dose Route Admin Location Dispensed Lot Number Expiration Date [employer] 80 unit subcut 100 units [id number] ALLERGAN/BOTOX Comments: see hpi Assessment & Plan Assessment & Plan (1) Hemifacial spasm of left side of face: Code(s): G51.32 - Clonic hemifacial spasm, left Category: Medical Plan Patient tolerated the procedure well she will call with any side effects Orders: Orders AMB Botulinum toxin Injection Today G51.32 - Clonic hemifacial spasm, left Medications: New onabotulinumtoxinA 100 units subcut ONCE 1 ea 0RF hemifacial spasm G51.32 - Clonic hemifacial spasm, left Coding Level of Care Code Est Pt Level 1 (13446) Diagnoses Hemifacial spasm of left side of face G51.32 CPT Codes Botox Injection - Botox 2: 46652 - Facial Nerve ([id number])
--- OUTSIDE RECORDS SUMMARY | 2024-10-26 12:16 | XMS_ITS | Data Portability ---
Author Organization [facility] Address [address] [facility] [address] [place] [address] Care Team Providers Care Eligibility Examiner Name Role Phone MICHAEL HOOKER Primary Care Provider [facility] OTHER Assessment Encounter Date Assessment Date Assessment LastModified by Organization Details LastModified Time 01/24/2023 01/24/2023 Ange Montesinos is a 57 year old woman with complaints of neck pain radiating into both upper extremities with numbness and tingling. She is S/P ACDF in the past. She is here for a follow up . She is worried about the weakness in her arms and she is having difficulty lifting things. On exam, she has positive spurling's sign bilaterally. I recommend a MRI cervical spine to evaluate for any spinal stenosis. She can follow up to review the same. She needs a referral to Dr. Snider, neurosurgeon after the MRI. I will schedule the MRI after insurance approval [email or web address] Not available 01/31/2023 14:48:17 04/01/2023 04/01/2023 Ange Montesinos is a 57 year old woman with complaints of neck pain radiating into both upper extremities with numbness and tingling. She is S/P ACDF in the past. She is here for a follow up . She is worried about the weakness in her arms and she is having difficulty lifting things. On exam, she has positive spurling's sign bilaterally. MRI Cervical spine shows Postoperative changes with anterior cervical fusion at C6-C7. Degenerative changes with cervical spondylosis. She has features of left facial paralysis. She would like a referral to Dr. Hayward in [place], [place] I recommend physical therapy with Anderson Murcia at the in [place], [place]. 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 [email or web address] Not available 04/05/2023 12:18:41 12/02/2023 12/02/2023 Ange Montesinos is a 58??year old woman with complaints of neck pain and low back pain. Her worse pain is in her low back and radiates into her left lower extremity . She has done physical therapy and is doing a home exercise program with persistent pain. On exam, she has pain on flexion and a positive straight leg raising test on the left. MRI Lumbar spine shows Postsurgical and degenerative changes of the lumbar spine . Moderate spinal canal stenosis at L3-L4 and moderate bilateral neural foraminal stenosis at L1-L2 have increased . Repeat Lumbar epidural steroid injection under fluoroscopic guidance was recommended. The risks and benefits of the procedure?? were discussed in detail. She wishes to proceed. An appointment has been booked for the same. She needs a emergency detail driver on the day of the procedure. Insurance approval needed. I have encouraged to??start physical therapy and discussed the importance of core strengthening. [email or web address] Not available 12/02/2023 14:56:08 01/09/2024 01/09/2024 Ange Montesinos is a 58??year old woman with complaints of neck pain and low back pain. Her worse pain is in her low back and radiates into her both lower extremities .She is S/P back surgery. She has done physical therapy and is doing a home exercise program with persistent pain. On exam, she has pain on flexion and a positive straight leg raising test on the left. MRI Lumbar spine shows Postsurgical and degenerative changes of the lumbar spine . Moderate spinal canal stenosis at L3-L4 and moderate bilateral neural foraminal stenosis at L1-L2 have increased. She is here for a Lumbar epidural steroid injection at L2-3 under fluoroscopic guidance . The risks and benefits of the procedure?? were discussed in detail. She wishes to proceed. I have encouraged to??start physical therapy and discussed the importance of core strengthening. She will follow up after her left knee replacement [email or web address] Not available 01/09/2024 11:20:26 03/27/2024 03/27/2024 Ange Montesinos is a 58??year old woman with complaints of neck pain and low back pain. Her worse pain is in her low back and radiates into her left lower extremity . She has done physical therapy and is doing a home exercise program with persistent pain. On exam, she has pain on flexion and a positive straight leg raising test on the left. MRI Lumbar spine shows Postsurgical and degenerative changes of the lumbar spine . Moderate spinal canal stenosis at L3-L4 and moderate bilateral neural foraminal stenosis at L1-L2 have increased . Repeat Lumbar epidural steroid injection under fluoroscopic guidance was recommended. The risks and benefits of the procedure?? were discussed in detail. She wishes to proceed. An appointment has been booked for the same. She needs a emergency detail driver on the day of the procedure. Insurance approval needed. I have encouraged to??start physical therapy and discussed the importance of core strengthening. She si on [employer] and will call back after consulting with Dr. Segundo on when she can have an epidural steroid injection and when she can stop the blood thinner. [email or web address] Not available 03/31/2024 16:06:25 Plan of Treatment Reminders Order Date Submit Date Provider Last Modified By Organization Details Last Modified Time Details Appointments None recorded. Lab None recorded. Referral neurologica l surgeon referral 2022 023 HAYDEN Hayward MD, [address], [place], [address], 05:00:52 Procedures None recorded. Surgeries None recorded. Imaging None recorded. Medication Orders None recorded. Patient TargetsNo targets recorded. Patient Instructions Encounter Date Encounter Id Patient Instructions Last Modified By Organization Details Last Modified Time 01/24/2023 [id number] She was advised against bed rest lasting longer than four days and to continue activities as tolerated. [email or web address] Not available 01/30/2023 16:21:29 04/01/2023 [id number] physical therapy* HAYDEN Not available 10/13/2023 05:00:58 She was advised against bed rest lasting longer than four days and to continue activities as tolerated. [email or web address] Not available 04/05/2023 11:18:39 12/02/2023 [id number] She was advised against bed rest lasting longer than four days and to continue activities as tolerated. [email or web address] Not available 12/02/2023 14:52:52 03/27/2024 [id number] She was advised against bed rest lasting longer than four days and to continue activities as tolerated. [email or web address] Not available 03/31/2024 16:03:33 Reason for Referral Neurological Surgeon Referra l for Brachial radiculitis Referring Physician: Evelio Smith, Pain Management, Encounter Date: 04/01/2023 Results Created Date Observation Date Name Description Value Unit Range Abnormal Flag Note LastModifiedBy Organization Detail LastModifiedTime 12/26/19 23 12/25/2022 XR, cervi ney spine No observ ation record ed. [facility] [address] [place] [address], [id number], 01/24/2023 13:46:21 02/09/20 23 02/06/2023 MRI, cervi ney spine , w/o contr ast No observ ation record ed. [facility] [address] [place], [address], 02/11/2023 15:20:32 Result Notes None recorded. Problems Name Problem SNOMED Code Status Onset Date Resolution Date Notes Provider Name and Address Organization Details Recorded Time Brachial radiculitis 42917285 Active Evelio grady MD [address] , [address], [place], [address], [place] [facility] 6 08:51:25 Displacement of lumbar intervertebral disc without myelopathy 31386725 Active Evelio grady MD [address] , [address], [place], [address], [place] [facility] 6 08:55:36 Lumbosacral radiculitis [id number] Lauryn grady MD [email or web address] , [address], [place], [address], [place] [facility] 6 08:55:36 Degeneration of cervical intervertebral disc [id number] Lauryn grady MD [address] , [address], [place], [address], [place] [facility] 6 08:51:25 Cervical post-laminecto my syndrome 528444018 Active Evelio grady MD [address] , [address], [facility] [place], [address], [place] [facility] 6 08:51:25 Occipital headache 380256 Active Evelio grady MD [address] [facility] , [address], [place], [address], [place] [facility] 6 08:51:25 Problem Notes None recorded. Procedures Surgical History Date Name Laterality Status Provider Name and Address Organization Details Recorded Time 01/09/20 24 Lumbar Epidural steroid injection under fluoroscopic guidance completed Evelio Smith MD [email or web address] [facility] , [address], [place], [address], [place] [facility] 01/09/2024 11:18:14 12/26/19 23 Lumbar Epidural steroid injection under fluoroscopic guidance completed Evelio Smith MD [email or web address] [facility] , [address], [place], [address], [place] [facility] 12/25/2022 13:26:44 07/08/20 19 Greater Occipital Nerve Block(s) completed Evelio Smith MD [email or web address] [facility] , [address], [place], [address], [place] [facility] 07/09/2019 14:01:34 01/07/20 19 Cervical Epidural Steroid injection under fluroscopic guidance completed Evelio Smith MD [address] [facility] , [address], [place], [address], [place] [facility] 01/07/2019 10:50:11 04/24/20 17 Lumbar Epidural steroid injection under fluoroscopic guidance completed Evelio Smith MD [address] [facility] , [address], [place], [address], [place] [facility] 05/02/2017 10:32:28 10/21/19 17 Lumbar Fusion completed Elsa Lainez [place] [facility] 12/18/2018 13:40:37 10/02/20 16 Lumbar Epidural steroid injection under fluoroscopic guidance completed Evelio Smith MD [address] , [address], [place], [address], [place] [facility] 10/02/2016 14:32:08 04/04/20 16 Lumbar Epidural steroid injection under fluoroscopic guidance completed Evelio Smith MD [email or web address] , [address], [place], [address], [place] [facility] 04/04/2016 11:07:10 Other completed Elsa Lainez [place] [facility] 02/27/2016 14:58:46 Other completed Elsa Lainez [facility] 03/01/2016 10:08:37 Other completed Elsa Lainez [place] [facility] 02/27/2016 14:58:46 Other completed Elsa Lainez [place] [facility] 02/27/2016 14:58:46 Imaging Results Imaging Date Name Status LastModified by [employer] Details LastModified Time 12/25/2022 XR, cervical spine completed [facility] [address] [place] [address], [address], 01/24/2023 13:46:21 02/06/2023 MRI, cervical spine, w/o contrast completed [facility] [address] [place] [address], [id number], 02/11/2023 15:20:32 Procedure Notes None recorded. Medical Equipment None Reported. Allergies Allergen ID Allergen Name Allergen Category Reaction Reaction Severity Criticality Documentation Date Start Date Code Code System Note Provider Name and Address Organization Details Recorded Time 38412 Substance with sulfonami de structure and antibacte rial mechanism of action (substanc e) medicatio n hives Not available Not available 02/27/2016 55536 8003 SNOMED Elsa paris [place] [facility] 14:58:47 Medications Name Sig Start Date Stop Date Status Note LastModified by Organization Details LastModified Time celecoxib 200 mg capsule TAKE 1 CAPSULE BY MOUTH 2 TIMES DAILY NEEDED FOR PAIN. active Not Available Not Available No t Available fluoxetine 40 mg capsule 08/24 completed Not Available Not Available Not Available cyclobenzap rine 10 mg tablet TAKE 1 TABLET BY MOUTH TWICE A DAY active Not Available Not Available No t Available amoxicillin 500 mg capsule TAKE 4 CAPSULES BY MOUTH 1 HOUR PRIOR TO PROCEDURE active Not Available Not Available No t Available gabapentin 600 mg tablet 06/09 completed Not Available Not Available Not Available doxycycline hyclate 100 mg capsule TAKE ONE CAPSULE BY MOUTH TWICE DAILY WITH FOOD 09/12 completed Not Available Not Available Not Available atorvastati n 20 mg tablet TAKE 1 TABLET BY MOUTH EVERY DAY 11/23 completed Not Available Not Available Not Available ketoconazol e 2 % shampoo USE ONCE DAILY A FACE WASH active Not Available Not Available No t Available verapamil 40 mg tablet TAKE 1 TABLET BY MOUTH TWICE A DAY 11/23 completed Not Available Not Available Not Available trazodone 50 mg tablet TAKE 1 TABLET BY MOUTH EVERYDAY AT BEDTIME active Not Available Not Available No t Available atorvastati n 10 mg tablet TAKE 1 TABLET BY MOUTH EVERY DAY active Not Available Not Available No t Available oxybutynin chloride ER 10 mg tablet,exte nded release 24 hr active Not Available Not Available Not Available azithromyci n 250 mg tablet 03/27 completed Not Available Not Available Not Available amitriptyli ne 75 mg tablet 11/23 completed Not Available Not Available Not Available nystatin 100,000 unit/gram topical ointment APPLY TOPICALLY TO AFFECTED AREAS TWICE A DAY FOR 10 DAYS 12/06 completed prn Not Available Not Available Not Available fluconazole 150 mg tablet 03/07 completed Not Available Not Available Not Available valacyclovi r 1 gram tablet TAKE 1 TABLET BY MOUTH THREE TIMES A DAY FOR 7 DAYS 11/23 completed Not Available Not Available Not Available meloxicam 15 mg tablet Take 1 tablet every day by oral route. 05/16 completed Not Available Not Available Not Available sucralfate 1 gram tablet TAKE 1 TABLET BY MOUTH 4 TIMES A DAY 03/27 completed Not Available Not Available Not Available lisinopril 20 mg tablet TAKE 1 TABLET BY MOUTH EVERY DAY active Not Available Not Available No t Available ondansetron HCl 4 mg tablet TAKE 1 TABLET BY MOUTH EVERY 8 HOURS NEEDED FOR NAUSEA active Not Available Not Available No t Available prednisone 20 mg tablet TAKE 3 TABLETS BY MOUTH X3 DAYS TAKE 2 TABLETS BY MOUTH X3 DAYS TAKE 1 TABLET BY MOUTH X3 DAYS 11/23 completed Not Available Not Available Not Available sertraline 100 mg tablet TAKE 1 TABLET BY MOUTH EVERY DAY active Not Available Not Available No t Available sumatriptan 50 mg tablet TAKE 1 TABLET BY MOUTH AT LEAST 2 HOURS BETWEEN DOSES NEEDED FOR 30 DAY SUPPLY 01/24 completed Not Available Not Available Not Available thiamine HCl (vitamin B1) 100 mg tablet TAKE 2&1/2 TABLETS BY MOUTH ONCE DAILY 03/27 completed Not Available Not Available Not Available Tylenol Arthritis Pain 650 mg tablet,exte nded release Take 2 tablets every 8 hours by oral route. active Not Available Not Available No t Available topiramate 25 mg tablet TAKE 1 TO 2 TABLETS BY MOUTH EVERY DAY 12/06 completed Not Available Not Available Not Available metronidazo le 500 mg tablet 03/07 completed Not Available Not Available Not Available melatonin 3 mg tablet TAKE 1 TABLET BY MOUTH EVERYDAY AT BEDTIME active Not Available Not Available No t Available ciprofloxac in 250 mg tablet TAKE 1 TABLET BY MOUTH EVERY 12 HOURS UNTIL FINISHED 03/27 completed Not Available Not Available Not Available ciprofloxac in 500 mg tablet TAKE 1 TABLET BY MOUTH EVERY 12 HOURS 11/23 completed Not Available Not Available Not Available tramadol 50 mg tablet TAKE 1 TABLET BY MOUTH EVERY 8 HOURS 11/23 completed Not Available Not Available Not Available acetaminoph en 500 mg tablet active Not Available Not Available Not Available butalbital- acetaminoph en-caffeine 50 mg-325 mg-40 mg tablet TAKE 2 TABLETS BY MOUTH EVERY DAY NEEDED FOR HEADACHE 03/27 completed Not Available Not Available Not Available Vitamin B-6 250 mg tablet TAKE 1 TABLET BY MOUTH EVERY DAY 03/27 completed Not Available Not Available Not Available oxycodone-a cetaminophe n 5 mg-325 mg tablet TAKE 1-2 TABLET(S) BY MOUTH EVERY 4-6 HOURS 12/18 completed Not Available Not Available Not Available hydromorpho ne 2 mg tablet 06/09 completed Not Available Not Available Not Available citalopram 20 mg tablet 03/07 completed Not Available Not Available Not Available amitriptyli ne 25 mg tablet TAKE 1 TABLET DAILY AT BEDTIME. 03/07 completed Not Available Not Available Not Available prednisolon e acetate 1 % eye drops,suspe nsion INSTILL 1 DROP IN LEFT EYE 4 TIMES A DAY FOR 1 WEEK THEN STOP 12/18 completed Not Available Not Available Not Available magnesium oxide 400 mg (241.3 mg magnesium) tablet TAKE 1 TABLET BY MOUTH DAILY AT BEDTIME, MAY HOLD FOR LOOSE STOOLS 12/02 completed Not Available Not Available Not Available ciprofloxac in 0.3 % eye drops INSTILL 1 DROP IN LEFT EYE 4 TIMES A DAY 12/18 completed Not Available Not Available Not Available amitriptyli ne 10 mg tablet TAKE 1 TABLET BY MOUTH EVERYDAY AT BEDTIME 03/07 completed Not Available Not Available Not Available lorazepam 2 mg tablet TAKE 1 TABLET BY MOUTH 1 HOUR PRIOR TO PROCEDURE 03/27 completed Not Available Not Available Not Available baclofen 10 mg tablet TAKE 1-2 TABLETS BY MOUTH AT BEDTIME 04/01 completed Not Available Not Available Not Available dexamethaso ne 2 mg tablet active Not Available Not Available Not Available ranitidine 150 mg tablet TAKE 1 TABLET BY MOUTH TWICE A DAY 03/27 completed Not Available Not Available Not Available metoprolol tartrate 50 mg tablet TAKE 1 TABLET BY MOUTH TWICE A DAY active Not Available Not Available No t Available lisinopril 30 mg tablet TAKE 1 TABLET BY MOUTH EVERY DAY 12/18 completed Not Available Not Available Not Available oxybutynin chloride ER 5 mg tablet,exte nded release 24 hr TAKE 1 TABLET BY MOUTH EVERY DAY 12/18 completed Not Available Not Available Not Available gabapentin 300 mg capsule TAKE 1 CAPSULE BY MOUTH EVERY MORNING AND 2 CAPS AT BEDTIME active Not Available Not Available No t Available sertraline 25 mg tablet active Not Available Not Available Not Available omeprazole 20 mg capsule,del ayed release TAKE 1 CAPSULE BY MOUTH EVERY DAY active Not Available Not Available No t Available lisinopril 20 mg-hydrochl orothiazide 25 mg tablet TAKE 1 TABLET BY MOUTH EVERY DAY active Not Available Not Available No t Available lisinopril 5 mg tablet 06/09 completed Not Available Not Available Not Available hydrochloro thiazide 25 mg tablet TAKE 1 TABLET BY MOUTH EVERY DAY 03/27 completed Not Available Not Available Not Available gabapentin 100 mg capsule TAKE 1 CAPSULE BY MOUTH 3 TIMES DAILY 03/27 completed Not Available Not Available Not Available ergocalcife rol (vitamin D2) 1,250 mcg (50,000 unit) capsule TAKE 1 CAPSULE WEEKLY. active Not Available Not Available No t Available nystatin 100,000 unit/gram topical powder CLEANSE AREAS AND THEN APPLY TWICE A DAY FOR 10 DAYS 11/23 completed Not Available Not Available Not Available polyethylen e glycol 3350 17 gram/dose oral powder DISSOLVE 17 GRAMS INTO WATER AND DRINK BY MOUTH EVERY DAY 11/23 completed Not Available Not Available Not Available ondansetron 4 mg disintegrat ing tablet TAKE 1 TABLET BY MOUTH EVERY 8 HOURS NEEDED FOR NAUSEA 03/27 completed Not Available Not Available Not Available fluoxetine 20 mg capsule TAKE 1 CAPSULE BY MOUTH EVERY DAY 12/18 completed Not Available Not Available Not Available clotrimazol e 1 % topical cream active Not Available Not Available Not Available sertraline 50 mg tablet 03/07 completed Not Available Not Available Not Available amitriptyli ne 100 mg tablet TAKE 1 TABLET BY MOUTH EVERYDAY AT BEDTIME 11/23 completed Not Available Not Available Not Available naproxen 500 mg tablet 03/27 completed Not Available Not Available Not Available diazepam 5 mg tablet active Not Available Not Available No t Available oxycodone 5 mg tablet TAKE 1-2 TABLETS BY MOUTH EVERY 4-6 HOURS NEEDED FOR PAIN 09/12 completed Not Available Not Available Not Available Botox 100 unit injection active Not Available Not Available No t Available metoprolol tartrate 25 mg tablet 07/08 completed Not Available Not Available Not Available nitrofurant oin monohydrate /macrocryst als 100 mg capsule 03/07 completed Not Available Not Available Not Available Unisom (doxylamine ) at bedtime 12/18 completed Not Available Not Available Not Available Tylenol PM active Not Available Not Av ailable Not Available diclofenac 1 % topical gel APPLY 4 G TOPICALLY 2 TIMES DAILY. active Not Available Not Available No t Available cholecalcif donald (vitamin D3) 50 mcg (2,000 unit) capsule TAKE 1 CAPSULE BY MOUTH EVERY DAY active Not Available Not Available No t Available Vitamin D3 50 mcg (2,000 unit) tablet TAKE 1 TABLET BY MOUTH EVERY DAY active Not Available Not Available No t Available GaviLyte-G 236 gram-22.74 gram-6.74 gram-5.86 gram oral solution DILUTE, CHILL AND TAKE DIRECTED 12/18 completed Not Available Not Available Not Available Vitamin B-1 (mononitrat e) 100 mg tablet TAKE 2&1/2 TABLETS BY MOUTH ONCE DAILY 09/12 completed Not Available Not Available Not Available Xarelto 15 mg tablet 06/09 completed Not Available Not Available Not Available Xarelto 20 mg tablet 11/23 completed Not Available Not Available Not Available riboflavin (vitamin B2) 400 mg tablet TAKE 400 MG ORALLY DAILY FOR 30 DAYS 12/02 completed Not Available Not Available Not Available Fluzone Quad (PF) 60 mcg(15 mcgx4)/0.5 mL intramuscul ar syringe TO BE ADMINISTE RED BY [employer] T FOR IMMUNIZAT ION 12/18 completed Not Available Not Available Not Available Emgality Pen 120 mg/mL subcutaneou s pen injector INJECT 120 MG SUBCUTANE OUSLY ONCE FOR 30 DAYS 01/08 completed Not Available Not Available Not Available Flucelvax Quad (PF) 60 mcg (15 mcg x 4)/0.5 mL IM syringe 03/07 completed Not Available Not Available Not Available Ubrelvy 100 mg tablet PLEASE SEE ATTACHED FOR DETAILED DIRECTION S active Not Available Not Available No t Available Daily-Michelle (with folic acid) 400 mcg tablet active Not Available Not Available N ot Available Vitals Date Recorded Heart rate Oxygen saturation Oxygen saturation in Arterial blood by Pulse oximetry Systolic blood pressure Diastolic blood pressure Provider Name and Address Organization Details Last Updated DateTime 3 88 /min 98 % 98 % 107 mm[Hg] 77 mm[Hg] Corina Saldivar [place] [facility] 3 13:18:03 Date Recorded Body height Heart rate Oxygen saturation Oxygen saturation in Arterial blood by Pulse oximetry Body mass index (BMI) Body weight Systolic blood pressure Diastolic blood pressure Provider Name and Address Organization Details Last Updated DateTime 3 162.56 cm 89 /min 98 % 98 % 35.2 kg/m2 96209.4 4 g 165 mm[Hg] 77 mm[Hg] Mary Zamarripa [place] - [facility] 3 13:23:02 Date Recorded Body height Heart rate Oxygen saturation Oxygen saturation in Arterial blood by Pulse oximetry Body mass index (BMI) Body weight Systolic blood pressure Diastolic blood pressure Provider Name and Address Organization Details Last Updated DateTime 4 162.56 cm 75 /min 96 % 96 % 34.3 kg/m2 91624.4 7 g 150 mm[Hg] 90 mm[Hg] Deana Simeon robb [place] [facility] 4 14:28:07 Date Recorded Body height Heart rate Oxygen saturation Oxygen saturation in Arterial blood by Pulse oximetry Systolic blood pressure Diastolic blood pressure Provider Name and Address Organization Details Last Updated DateTime 4 162.56 cm 102 /min 98 % 98 % 138 mm[Hg] 95 mm[Hg] Irish Shields [place] [facility] 4 10:08:26 Date Recorded Body height Heart rate Oxygen saturation Oxygen saturation in Arterial blood by Pulse oximetry Body mass index (BMI) Body weight Systolic blood pressure Diastolic blood pressure Provider Name and Address Organization Details Last Updated DateTime 4 162.56 cm 101 /min 97 % 97 % 34.3 kg/m2 02043.4 7 g 144 mm[Hg] 91 mm[Hg] Evelio grady MD [facility] [address], [place], [address], [place] [facility] 4 10:28:41 Social History Question Answer Notes LastModified by Organizat ion Details LastModified Time Tobacco Smoking Status Never Smoker Not Available [facility] 08/05/2020 03:16:12 What Is Your Level Of Alcohol Consumption? Moderate [id number] Information not available 08/05/2020 Are You Currently Employed? No Disability [email or web address] Information not available 11/23/2021 Which Illicit Or Recreational Drugs Have You Used? No [id number] Information not available 08/05/2020 [employer] Information not available 02/27/2016 Live Alone Or With Others? Alone [email or web address] Information not available 02/27/2016 Marital Status Informatio n not available 02/27/2016 What Was The Date Of Your Most Recent Tobacco Screening? 01/31/2019 [id number] Information not available 08/05/2020 Sex: Unknown Functional Status None recorded. Mental Status None recorded. Family History Nothing Reported. Medical History Condition Response Depression Y Anxiety Disorder Y Arthritis Y Hypertension Y Gynecological HistoryNo gynecological history recorded. Obstetrics History GPAL:G 0 P 0 0 0 0 Past Encounters Encounter ID Performer Location Encounter Start Date Encounter Closed Date Diagnosis/Indication Diagnosis SNOMED-CT Code Diagnosis ICD10 Code Diagnosis Note [id number] Evelio Smith MD PAIN OFFICE [address] [place] [address] 02/27/2016 14:19:46 02/28/2016 08:47:29 Displacement of lumbar intervertebral disc without myelopathy 37713990 M51.26 Lumbosacra l radiculitis 71938413 M54.17 Brachial radiculitis 278 53565 M54.12 Cervical post-laminectomy syndrome 380882493 M96.1 Degenerati on of cervical intervertebral disc 85490623 M50.30 Occipital headache 23438 7 R51 [id number] Evelio Smith MD PAIN OFFICE [address] [place] [address] 03/20/2016 08:42:32 03/20/2016 10:30:41 Displacement of lumbar intervertebral disc without myelopathy 76578399 M51.26 Lumbosacra l radiculitis 31081062 M54.17 [id number] Evelio Smith MD PAIN OFFICE [address] [place] [address] 04/04/2016 10:15:22 04/04/2016 11:15:33 Displacement of lumbar intervertebral disc without myelopathy 59157335 M51.26 Lumbosacra l radiculitis 20396112 M54.17 [id number] Evelio Smith MD PAIN OFFICE [address] [place] [address] 05/10/2016 11:47:50 05/15/2016 08:55:57 Displacement of lumbar intervertebral disc without myelopathy 32476742 M51.26 Lumbosacra l radiculitis 23704783 M54.17 [id number] Evelio Smith MD PAIN OFFICE [address] [place] [address] 09/03/2016 10:14:59 09/20/2016 08:51:29 Lumbosacral radiculitis 84160760 M54.17 Displaceme nt of lumbar intervertebral disc without myelopathy 53374414 M51.26 [id number] Evelio Smith MD PAIN OFFICE [address] [place] [address] 10/02/2016 13:29:26 10/03/2016 14:29:14 Displacement of lumbar intervertebral disc without myelopathy 68706854 M51.26 Lumbosacra l radiculitis 91530621 M54.17 [id number] Evelio Smith MD PAIN OFFICE [address] [place] [address] 03/27/2017 13:22:06 03/28/2017 16:32:03 Cervical radiculopathy 57549140 M54.12 Degenerati on of cervical intervertebral disc 64251368 M50.30 Muscle pain 70479056 M79 .1 Displaceme nt of lumbar intervertebral disc without myelopathy 28780728 M51.26 Lumbosacra l radiculitis 10287979 M54.17 [id number] Evelio Smith MD PAIN OFFICE [address] [place] [address] 04/24/2017 13:30:47 05/02/2017 13:43:27 Cervical post-laminectomy syndrome 499753824 M96.1 Cervical radiculopathy 79004971 M54.12 Displaceme nt of lumbar intervertebral disc without myelopathy 61108269 M51.26 Lumbosacra l radiculitis 74982583 M54.17 [id number] Evelio Smith MD [facility] [address] [place] [address] 05/16/2017 11:40:03 05/17/2017 11:19:26 Brachial radiculitis 58757417 M54.12 Degenerati on of cervical intervertebral disc 24118134 M50.30 Cervical post-laminectomy syndrome 078405831 M96.1 Occipital headache 64774 7 R51 [id number] Evelio Smith MD PAIN OFFICE [address] [place] [address] 12/18/2018 13:31:38 12/18/2018 16:14:01 Brachial radiculitis 70664590 M54.12 Degenerati on of cervical intervertebral disc 42219957 M50.30 Cervical post-laminectomy syndrome 684741199 M96.1 Occipital headache 52095 7 R51 [id number] Evelio Smith MD PAIN OFFICE [address] [place] [address] 01/06/2019 08:42:42 01/07/2019 10:53:06 Brachial radiculitis 49101651 M54.12 Degenerati on of cervical intervertebral disc 61418288 M50.30 Cervical post-laminectomy syndrome 438368492 M96.1 Occipital headache 64168 7 R51 [id number] Evelio Smith MD PAIN OFFICE [address] [place] [address] 01/28/2019 14:04:46 01/31/2019 10:24:31 Brachial radiculitis 18386750 M54.12 Degenerati on of cervical intervertebral disc 15294975 M50.30 Cervical post-laminectomy syndrome 587007042 M96.1 Occipital headache 45997 7 R51 [id number] Evelio Smith MD PAIN OFFICE [address] [place] [address] 06/09/2019 14:32:10 06/26/2019 15:58:13 Occipital headache 166492 R51 Degenerati on of cervical intervertebral disc 38351248 M50.30 Cervical post-laminectomy syndrome 166258031 M96.1 Brachial radiculitis 278 38588 M54.12 [id number] Evelio Smith MD [facility] [address] [place] [address] 07/08/2019 15:29:45 07/09/2019 14:03:49 Occipital headache 592479 R51 Cervical post-laminectomy syndrome 862681477 M96.1 Degenerati on of cervical intervertebral disc 45410277 M50.30 Brachial radiculitis 278 13561 M54.12 [id number] Evelio Smith MD PAIN OFFICE [address] [place] [address] 08/24/2019 13:24:13 08/25/2019 11:25:36 Occipital headache 746727 R51 Degenerati on of cervical intervertebral disc 21240150 M50.30 Cervical post-laminectomy syndrome 828595040 M96.1 Brachial radiculitis 278 16270 M54.12 [id number] Evelio Smith MD [facility] [address] [facility] [place] [address] 03/07/2020 13:03:14 03/07/2020 14:34:46 Occipital headache 254781 R51 Degenerati on of cervical intervertebral disc 60724208 M50.30 Cervical post-laminectomy syndrome 231160549 M96.1 Brachial radiculitis 278 60947 M54.12 [id number] Evelio Smith MD PAIN OFFICE [address] [facility] [place] [address] 11/23/2021 13:01:22 11/23/2021 13:27:11 Displacement of lumbar intervertebral disc without myelopathy 90981642 M51.26 Lumbosacra l radiculitis 71657368 M54.17 Brachial radiculitis 278 15372 M54.12 Cervical post-laminectomy syndrome 137592744 M96.1 Degenerati on of cervical intervertebral disc 08397145 M50.30 Occipital headache 65555 7 R51.9 [id number] Evelio Smith MD PAIN OFFICE [address] [facility] [place] [address] 09/12/2022 08:14:50 09/12/2022 15:42:09 Displacement of lumbar intervertebral disc without myelopathy 99917693 M51.26 Lumbosacra l radiculitis 45391110 M54.17 Brachial radiculitis 278 03145 M54.12 Cervical post-laminectomy syndrome 994560772 M96.1 Degenerati on of cervical intervertebral disc 87422971 M50.30 Occipital headache 15632 7 R51.9 [id number] Evelio Smith MD PAIN OFFICE [address] [place] [address] 12/06/2022 14:08:50 12/13/2022 14:02:45 Displacement of lumbar intervertebral disc without myelopathy 57330011 M51.26 Lumbosacra l radiculitis 47015782 M54.17 Brachial radiculitis 278 87199 M54.12 Cervical post-laminectomy syndrome 705536484 M96.1 Degenerati on of cervical intervertebral disc 43280503 M50.30 Occipital headache 59264 7 R51.9 [id number] Evelio Smith MD [facility] [address] [place] [address] 12/25/2022 11:32:27 12/25/2022 13:59:32 Displacement of lumbar intervertebral disc without myelopathy 75636314 M51.26 Lumbosacra l radiculitis 98719102 M54.17 Brachial radiculitis 278 88931 M54.12 Cervical post-laminectomy syndrome 441494463 M96.1 Degenerati on of cervical intervertebral disc 72967749 M50.30 Occipital headache 60471 7 R51.9 [id number] Evelio Smith MD [facility] [address] [place] [address] 01/24/2023 13:09:55 01/31/2023 14:49:17 Brachial radiculitis 33341707 M54.12 Degenerati on of cervical intervertebral disc 45819221 M50.30 Cervical post-laminectomy syndrome 624290359 M96.1 Occipital headache 37556 7 R51.9 [id number] Evelio Smith MD [facility] [address] [place] [address] 04/01/2023 13:14:13 04/05/2023 12:19:21 Lumbosacral radiculitis 69231162 M54.17 Brachial radiculitis 278 24923 M54.12 Degenerati on of cervical intervertebral disc 66708374 M50.30 Cervical post-laminectomy syndrome 394851287 M96.1 Occipital headache 25946 7 R51.9 [id number] Evelio Smith MD [facility] [address] [place] [address] 12/02/2023 14:06:57 12/02/2023 14:57:45 Lumbosacral radiculitis 53399713 M54.17 Displaceme nt of lumbar intervertebral disc without myelopathy 84062623 M51.26 Brachial radiculitis 278 84847 M54.12 Cervical post-laminectomy syndrome 995145677 M96.1 Degenerati on of cervical intervertebral disc 00810523 M50.30 Occipital headache 11543 7 R51.9 [id number] Evelio Smith MD PAIN OFFICE [address] [place] [address] 01/09/2024 10:01:40 01/09/2024 15:01:59 Displacement of lumbar intervertebral disc without myelopathy 99529612 M51.26 Lumbosacra l radiculitis 08867160 M54.17 Brachial radiculitis 278 36165 M54.12 Cervical post-laminectomy syndrome 981280666 M96.1 Degenerati on of cervical intervertebral disc 62121826 M50.30 Occipital headache 43466 7 R51.9 [id number] Evelio Smith MD PAIN OFFICE [address] [place] [address] 03/27/2024 10:21:43 03/31/2024 16:07:49 Displacement of lumbar intervertebral disc without myelopathy 80934294 M51.26 Lumbosacra l radiculitis 86862217 M54.17 Brachial radiculitis 278 28823 M54.12 Cervical post-laminectomy syndrome 210500535 M96.1 Degenerati on of cervical intervertebral disc 31963152 M50.30 Occipital headache 92130 7 R51.9 Health Concerns Section Related Observation LastModified by Organization Detai ls LastModified Time None Recorded Concern Status LastModified by Organization Details LastModified Time None Recorded Advance Directives Directive None Recorded Payers Encounter Date Sequence Insurance Name Policy Number Policy Mojica Covered Member ID Mojica Member ID Guarantor Name 01/24/2023 2 [facility] - DOS PRIOR TO 2023 (MEDICARE REPLACEMENT/ADV ANTAGE - PPO) Ange Montesinos [id number] 04/01/2023 1 [facility] - DOS ON OR AFTER 2023 - ONE CARE (MEDICARE REPLACEMENT/ADV ANTAGE - HMO) Ange Montesinos [id number] 12/02/2023 1 [facility] - DOS ON OR AFTER 2023 - ONE CARE (MEDICARE REPLACEMENT/ADV ANTAGE - HMO) Ange Montesinos [id number] 01/09/2024 1 [facility] - DOS ON OR AFTER 2023 - ONE CARE (MEDICARE REPLACEMENT/ADV ANTAGE - HMO) Ange Montesinos [id number] 03/27/2024 1 [facility] - DOS ON OR AFTER 2023 - ONE CARE (MEDICARE REPLACEMENT/ADV ANTAGE - HMO) Ange Montesinos [id number] Notes Date Note Type Note Provider Name and Address Organization Details Recorded Time 01/24/2023 text/html She is here for a follow up . She is S/P ACDF C6-7 level in the past. She is complaining of neck pain radiating into both upper extremities with numbness and weakness. She is also complaining of headaches. She has not had any recent imaging studies . Last one was in 2017. She has been doing physical therapy with no pain benefit. She is doing a home exercise program with persistent pain. She has seen Dr. Snider in the past and wishes to see her after her MRI.She reports no pain benefit after last lumbar epidural steroid injection under fluoroscopic guidance . She continues to have low back pain radiating into both lower extremities. She has no history of bladder or bowel incontinence. Evelio Smith MD [address] [place] [address] , [address], [place], [address], [place] [facility] 01/31/2023 15:49:56 04/01/2023 text/html She is here for a follow up after a lumbar epidural steroid injection under fluoroscopic guidance. She reports 50% pain relief for two weeks. She is complaining of occasionally achiness in her low back . She has no history of bladder or bowel incontinence.She has seen Dr. Snider and she does not offer nay surgical options for her at this time.She states she has been having [place] Palsy for the past one year and sees Dr. 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 She has weakness in her arms and legs . Evelio Smith MD [address], [place], [address], [facility] 04/05/2023 12:20:51 12/02/2023 text/html She states she h as been having pain since . She is having an exacerbation of pain since 08/2022.She is S/P Lumbar fusion by Dr. Snider in 2017. She describes the pain in her low back as a sharp, stabbing pain which radiates into both lower extremities , right is greater than left with numbness and tingling in her toes. She states she lives with her pain constantly. Physical exertion aggravates her pain. Nothing helps the pain. She states she has insomnia . She states she has stress urinary incontinence . She has no bowel problems. She is walking with a cane now . She is using a chair in her shower and has to use a raised toilet seat.MRI Lumbar spine shows Postsurgical and degenerative changes of the lumbar spine . Moderate spinal canal stenosis at L3-L4 and moderate bilateral neural foraminal stenosis at L1-L2 have increasedShe has been doing [facility] [place] . She has done physical therapy and had an exacerbation of her pain.She has seen a neurosurgeon in [place], [place] . She wants to wait as she is planning on a knee replacement. She is also in grief as she has lost her mother last year. Evelio Smith MD [address] , [address], [place], [address], [facility] 12/04/2023 16:33:41 01/09/2024 text/html She is here for a lumbar epidural steroid injection under fluoroscopic guidance. Evelio Smith MD [address] , [address], [place], [address], [facility] 01/09/2024 15:09:18 03/27/2024 text/html She states she h as been having pain since . She is having an exacerbation of pain since 08/2022.She is S/P Lumbar fusion by Dr. Snider in 2017. She describes the pain in her low back as a sharp, stabbing pain which radiates into both lower extremities , right is greater than left with numbness and tingling in her toes. She states she lives with her pain constantly. Physical exertion aggravates her pain. Nothing helps the pain. She states she has insomnia . She states she has stress urinary incontinence . She has no bowel problems. She is walking with a cane now . She is using a chair in her shower and has to use a raised toilet seat.MRI Lumbar spine shows Postsurgical and degenerative changes of the lumbar spine . Moderate spinal canal stenosis at L3-L4 and moderate bilateral neural foraminal stenosis at L1-L2 have increasedShtamiko has been doing an [facility] [place] . She has done physical therapy and had an exacerbation of her pain.She has seen a neurosurgeon in [place] . She is S/P knee replacement on 03/03/[address] Segundo and is on eliquis. Evelio Smith MD [address] [place] [address] , [address], [place], [address], [place] [facility] 03/31/2024 16:06:56 OBGyn Episode No OBEpisode recorded.
== END 2024-10-26 11:11 | disposition home or self-care (01) ==
PROVIDERS: PCP Internal Medicine; Visit Provider Psychiatry & Neurology Neurology
DX: G51.32 Clonic hemifacial spasm, left (principal)
CPT/HCPCS: 64612

== ENCOUNTER 2024-11-23 12:12 | Outpatient (AMB) | payer OTHER, SELFPAY ==
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
--- OUTSIDE RECORDS SUMMARY | 2024-11-23 13:35 | XMS_ITS | Encounter Summary ---
Author Organization [facility] Address [address] [place] [address] Care Team Providers Care Cyber Systems Engineer Name Role Phone Mily Lawrence MD Primary Care Provider [phone] Ralf Gastelum MD Unavailable [phone] Gretchen Juan MD Unavailable [phone] Katherine Snow PA-C Unavailable [phone] Per Leahy PA-C Unavailable [phone] Encounter Details Date Type Department Care Team Description 12/13/2022 Utility Forester Report Medical Records [address] [place] [id number] Evelio Smith Social History Tobacco Use Types Packs/Day Years Used Date Smoking Tobacco: Never Smokeless Tobacco: Never Alcohol Use Standard Drinks/Week Comments Yes 6 (1 standard drink = 0.6 oz pur e alcohol) daily glass of wine Intimate Partner Violence Answer Date R ecorded Within the last year, have y ou been afraid of your partner or ex-partner? No 07/12/2020 Within the last year, have y ou been humiliated or emotionally abused in other ways by your partner or ex-partner? No Within the last year, have y ou been kicked, hit, slapped, or otherwise physically hurt by your partner or ex-partner? No 07/12/2020 Within the last year, have y ou been raped or forced to have any kind of sexual activity by your partner or ex-partner? No 07/12/2020 Sex Assigned at Date Recorded Female 12/24/2022 3:[address] Job Start Date Occupation Industry Not on file Not on file Not on file documented as of this encounter Plan of Treatment Not on file documented as of this encounter Visit Diagnoses Not on filedocumented in this encounter Care Teams Cyber Systems Engineer Relationship Specialty Start Date End Date Mily Lawrence MD PCP - General Internal Medicine 03/09/19 Ralf Gastelum MD 300 [facility] [address] [place] [address] Specialist Cardiovascular Disease 06/08/22 Gretchen Juan MD 175 [facility] 300 [place] [address] Surgeon Neurosurgery 02/13/23 Katherine Snow PA-C 175 [facility] 300 [place] [address] Specialist Neurosurgery 02/13/23 Per Leahy PA-C 175 [facility] 300 [place] [address] Specialist Neurosurgery 02/13/23 documented as of this encounter
--- OUTSIDE RECORDS SUMMARY | 2024-11-23 13:35 | XMS_ITS | Encounter Summary ---
Author Organization [facility] Address [address] [place] [address] Care Team Providers Care Bog Cutter Name Role Phone Mily Lawrence MD Primary Care Provider [phone] Ralf Gastelum MD Unavailable [phone] Gretchen Juan MD Unavailable [phone] Katherine Snow PA-C Unavailable [phone] Per Leahy PA-C Unavailable [phone] Encounter Details Date Type Department Care Team Description 12/25/2022 Node Js Developer Report Medical Records [address] [place] [id number] Evelio Smith Social History Tobacco Use Types [...] on filedocumented in this encounter Care Teams Bog Cutter Relationship Specialty Start Date End Date Mily Lawrence MD PCP - General Internal Medicine 03/09/19 Ralf Gastelum MD 300 [facility] [address] [place] [address] Specialist Cardiovascular Disease 06/08/22 Gretchen Juan MD 175 [facility] 300 [place] [address] Surgeon Neurosurgery 02/13/23 Katherine Snow PA-C 175 [facility] 300 [place] [address] Specialist Neurosurgery 02/13/23 Per Leahy PA-C 175 [facility] 300 [place] [address] Specialist Neurosurgery 02/13/23 documented as of this encounter
--- OUTSIDE RECORDS SUMMARY | 2024-11-23 13:35 | XMS_ITS | Encounter Summary ---
Author Organization [facility] Address [address] [place] [address] Care Team Providers Care Aircraft Technician Name Role Phone Mily Lawrence MD Primary Care Provider [phone] Ralf Gastelum MD Unavailable [phone] Gretchen Juan MD Unavailable [phone] Katherine Snow PA-C Unavailable [phone] Per Leahy PA-C Unavailable [phone] Encounter Details Date Type Department Care Team Description 08/10/2021 Orders Only Medical Records [address] [place] [address] Maye Hamilton MD [address] [place] [id number] Social History Tobacco Use Types Packs/Day Years Used Date Smoking Tobacco: Never Smokeless Tobacco: Never Alcohol Use Standard Drinks/Week Comments Yes 6 (1 standard drink = 0.6 oz pur e alcohol) socially Intimate Partner Violence Answer Date R ecorded [...] file Not on file Not on file COVID-19 Exposure Response Date Recorded In the last month, have you been in contact with someone who was confirmed or suspected to have Coronavirus / COVID-19? No / Unsure 07/21/2021 1:58 PM EDT documented as of this encounter Plan of Treatment Not on file documented as of this encounter Procedures Procedure Name Priority Date/Time Associated Diagnosis Comments OUTSIDE IMAGING Routine 08/09/2021 documented in this encounter Results * OUTSIDE IMAGING (08/09/2021) Maye [place] MD RADIOLOGY documented in this encounter Visit Diagnoses Not on filedocumented in this encounter Care Teams Aircraft Technician Relationship Specialty Start Date End Date Mily Lawrence MD PCP - General Internal Medicine 03/09/19 Ralf Gastelum MD 300 [facility] [address] [place] [address] Specialist Cardiovascular Disease 06/08/22 Gretchen Juan MD 175 [facility] 300 [place] [address] Surgeon Neurosurgery 02/13/23 Katherine Snow PA-C 175 [facility] 300 [place] [address] Specialist Neurosurgery 02/13/23 Per Leahy PA-C 175 [facility] 300 [place] [address] Specialist Neurosurgery 02/13/23 documented as of this encounter
--- OUTSIDE RECORDS SUMMARY | 2024-11-23 13:35 | XMS_ITS | Encounter Summary ---
Author Organization [facility] Address [address] [place] [address] Care Team Providers Care Chief Deputy Clerk/Bailiff Name Role Phone Mily Lawrence MD Primary Care Provider Ralf Gastelum MD Unavailable [phone] Gretchen Juan MD Unavailable [phone] Katherine Snow PA-C Unavailable [phone] Per Leahy PA-C Unavailable [phone] Reason for Visit * Reason Onset Date Comments Medication Injection, Joint 07/27/2021 norma ohumeral injection @ [facility] on 08/09/21 for 1pm, arrive for 12:30pm to outpatient registration on Encounter Details Date Type Department Care Team Description 07/27/2021 Telephone [facility] [address] [address] Marci Bernardo PA-C [address] [id number] Medication Injection, Joint (glenohumeral injection @ [facility] on 08/09/21 for 1pm, arrive for 12:30pm to outpatient registration on ) Social History Tobacco Use Types Packs/Day Years [...] PM EDT documented as of this encounter Miscellaneous Notes * Telephone Encounter - Matt Maldonado - 07/27/2021 3:09 PM EDT Patient is aware of her glenohumeral injection scheduled at [facility] on 08/09/21 at 1pm, with an arrivaltime of 12:30pm to outpatient registration located on the first floor of the hospital. documented in this encounter Plan of Treatment Not on file documented as of this encounter Visit Diagnoses Not on filedocumented in this encounter Care Teams Chief Deputy Clerk/Bailiff Relationship Specialty Start Date End Date Mily Lawrence MD PCP - General Internal Medicine 03/09/19 Ralf Gastelum MD 300 [facility] [address] [place] [address] Specialist Cardiovascular Disease 06/08/22 Gretchen Jaun MD 175 [facility] 300 [place] [address] Surgeon Neurosurgery 02/13/23 Katherine Snow PA-C [address] [address] Specialist Neurosurgery 02/13/23 Per Leahy PA-C [address] [address] Specialist Neurosurgery 02/13/23 documented as of this encounter
--- OUTSIDE RECORDS SUMMARY | 2024-11-23 13:35 | XMS_ITS | Encounter Summary ---
Author Organization [facility] Address [address] [place] [address] Care Team Providers Care Car Servicer Name Role Phone Mily Lawrence MD Primary Care Provider [phone] Ralf Gastelum MD Unavailable [phone] Gretchen Juan MD Unavailable [phone] Katherine Snwo PA-C Unavailable [phone] Per Leahy PA-C Unavailable [phone] Encounter Details Date Type Department Care Team Description 01/24/2023 Residential Insurance Inspector Report Medical Records [address] [place] [id number] Evelio Smith Social History Tobacco Use Types [...] on filedocumented in this encounter Care Teams Car Servicer Relationship Specialty Start Date End Date Mily Lawrence MD PCP - General Internal Medicine 03/09/19 Ralf Gastelum MD 300 [facility] [address] [place] [address] Specialist Cardiovascular Disease 06/08/22 Gretchen Juan MD 175 [facility] 300 [place] [address] Surgeon Neurosurgery 02/13/23 Katherine Snow PA-C 175 [facility] 300 [place] [address] Specialist Neurosurgery 02/13/23 Per Leahy PA-C 175 [facility] 300 [place] [address] Specialist Neurosurgery 02/13/23 documented as of this encounter
--- OUTSIDE RECORDS SUMMARY | 2024-11-23 13:35 | XMS_ITS | Encounter Summary ---
Author Organization [facility] Address [address] [place] [address] Care Team Providers Care Program Manager Transportation Name Role Phone Mily Lawrence MD Primary Care Provider [phone] Ralf Gastelum MD Unavailable [phone] Gretchen Juan MD Unavailable [phone] Katherine Snow PA-C Unavailable [phone] Per Leahy PA-C Unavailable [phone] Encounter Details Date Type Department Care Team Description 07/14/2021 Orders Only Medical Records [address] [place] [address] Marci Bernardo PA-C [address] [address] Social History Tobacco Use Types Packs/Day Years [...] have Coronavirus / COVID-19? No / Unsure 07/13/2021 3:32 PM EDT documented as of this encounter Plan of Treatment Not on file documented as of this encounter Procedures Procedure Name Priority Date/Time Associated Diagnosis Comments OUTSIDE MRI/MRA Routine 07/13/2021 documented in this encounter Results * OUTSIDE MRI/MRA (07/13/2021) Marci Bernardo PA-C RADIOLOGY documented in this encounter Visit Diagnoses Not on filedocumented in this encounter Care Teams Program Manager Transportation Relationship Specialty Start Date End Date Mily Lawrence MD PCP - General Internal Medicine 03/09/19 Ralf Gastelum MD 300 [facility] [address] [place] [address] Specialist Cardiovascular Disease 06/08/22 Gretchen Juan MD [address] [address] Surgeon Neurosurgery 02/13/23 Katherine Snow PA-C 175 [facility] 300 [place] [address] Specialist Neurosurgery 02/13/23 Per Leahy PA-C 175 [facility] 300 [place] [address] Specialist Neurosurgery 02/13/23 documented as of this encounter
--- OUTSIDE RECORDS SUMMARY | 2024-11-23 13:35 | XMS_ITS | Encounter Summary ---
Author Organization [facility] Address [address] [place] [address] Care Team Providers Care Bulk Truck Driver Name Role Phone Mily Lawrence MD Primary Care Provider Ralf Gastelum MD Unavailable [phone] Gretchen Juan MD Unavailable [phone] Katherine Snow PA-C Unavailable [phone] Per Leahy PA-C Unavailable [phone] Reason for Visit * Reason Onset Date Comments Testing 07/11/2021 MRI Encounter Details Date Type Department Care Team Description 07/11/2021 Telephone Adult Medicine [facility] [address] [place] [address] Marci Bernardo PA-C [address] [place] [phone] Testing (MRI) Social History Tobacco Use Types Packs/Day Years [...] encounter Miscellaneous Notes * Telephone Encounter - Sophie Vick - 07/11/2021 10:14 AM EDT MRI- to be booked by OCC Dept documented in this encounter Plan of Treatment Not on file documented as of this encounter Visit Diagnoses Not on filedocumented in this encounter Care Teams Bulk Truck Driver Relationship Specialty Start Date End Date Mily Lawrence MD PCP - General Internal Medicine 03/09/19 Ralf Gastelum MD 300 [facility] [address] [place] [address] Specialist Cardiovascular Disease 06/08/22 Gretchen Juan MD 175 [facility] 300 [place] [address] Surgeon Neurosurgery 02/13/23 Katherine Snow PA-C 175 [facility] 300 [place] [address] Specialist Neurosurgery 02/13/23 Per Leahy PA-C 175 [facility] 300 [place] [address] Specialist Neurosurgery 02/13/23 documented as of this encounter
--- OUTSIDE RECORDS SUMMARY | 2024-11-23 13:35 | XMS_ITS | Encounter Summary ---
Author Organization [facility] Address [address] [place] [address] Care Team Providers Care Tile Mechanic Helper Name Role Phone Mily Lawrence MD Primary Care Provider +[phone] Ralf Gastelum MD Unavailable [phone] Gretchen Juan MD Unavailable [phone] Katherine Snow PA-C Unavailable [phone] Per Leahy PA-C Unavailable [phone] Reason for Visit * Reason Comments E-prescribe Rx Request Encounter Details Date Type Department Care Team Description 08/17/2021 Refill Internal Medicine - [address], [address] [place] [address] Mily Lawrence MD [address] [place] [phone] E-prescribe Rx Request Social History Tobacco Use Types Packs/Day Years [...] have Coronavirus / COVID-19? No / Unsure 08/18/2021 3:16 PM EDT documented as of this encounter Miscellaneous Notes * Telephone Encounter - Carlie Carias L.P.NRigoberto - 08/18/2021 11:48 AM EDT REFILL CYCLOBENZAPRINE 10 MG TAKE 1 TAB AT BEDTIME LAST REFILL 02/02/2021 #30 5 REFILLS REFILL GABAPENTIN 300 MG 1 TAB DAILY EVERY 8 HOURS LAST REFILL 03/13/2021 #[address] MANAGER ON DESK * Telephone Encounter - Yulissa Blank - 08/18/2021 11:16 AM EDT LOGAN 05/10/21 NOV 08/31/21 documented in this encounter Plan of Treatment Not on file documented as of this encounter Visit Diagnoses Diagnosis Need for prophylactic vaccination and inoculation against viral hepatitis Mixed hyperlipidemia Essential hypertension, benign Urinary tract infection without hematuria, site unspecified documented in this encounter Care Teams Tile Mechanic Helper Relationship Specialty Start Date End Date Mily Lawrence MD PCP - General Internal Medicine 03/09/19 Ralf Gastelum MD 300 [facility] 154 [place] [address] Specialist Cardiovascular Disease 06/08/22 Gretchen Juan MD 175 [facility] 300 [place] [address] Surgeon Neurosurgery 02/13/23 Katherine Snow PA-C [address] [id number] Specialist Neurosurgery 02/13/23 Per Leahy PA-C [address] [address] Specialist Neurosurgery 02/13/23 documented as of this encounter
--- OUTSIDE RECORDS SUMMARY | 2024-11-23 13:36 | XMS_ITS | Encounter Summary ---
Author Organization [facility] Address [address] [place] [address] Care Team Providers Care Emd Special Education Teacher Name Role Phone Mily Lawrence MD Primary Care Provider [phone] Ralf Gastelum MD Unavailable [phone] Gretchen Juan MD Unavailable [phone] Katherine Snow PA-C Unavailable [phone] Per Leahy PA-C Unavailable [phone] Reason for Visit * Reason Onset Date Comments Menstrual Problems 07/21/2019 Encounter Details Date Type Department Care Team Description 07/21/2019 Telephone Internal Medicine - [address], [address] [place], [place] [id number] Mily Lawrence MD [address] [place] [phone] Menstrual Problems Social History Tobacco Use Types Packs/Day Years [...] on file documented as of this encounter Miscellaneous Notes * Telephone Encounter - Mily Lawrence MD - 07/21/2019 11:30 PM EDT Will talk to her on 07/23/19, Continue until then * Telephone Encounter - Alyce Vázquez R.N. - 07/21/2019 9:26 AM EDT Patient reports she is bleeding heavier than normal. She is concerned it is related to the Xarelto and wonders if she should stop it while menstruating. She has a f/u appt scheduled for 07/23/19. Please advise. Thank you Alyce Vázquez environmental protection geologist Manager with [facility] @[address] [place] [address] [id number] documented in this encounter Plan of Treatment Not on file documented as of this encounter Visit Diagnoses Not on filedocumented in this encounter Care Teams Emd Special Education Teacher Relationship Specialty Start Date End Date Mily Lawrence MD PCP - General Internal Medicine 03/09/19 Ralf Gastelum MD 300 [facility] [address] [place] [address] Specialist Cardiovascular Disease 06/08/22 Gretchen Juan MD 175 [facility] 300 [place] [address] Surgeon Neurosurgery 02/13/23 Katherine Snow PA-C [address] [address] Specialist Neurosurgery 02/13/23 Per Leahy PA-C 175 [facility] [address] [place] [address] Specialist Neurosurgery 02/13/23 documented as of this encounter
--- OUTSIDE RECORDS SUMMARY | 2024-11-23 13:36 | XMS_ITS | Encounter Summary ---
Author Organization [facility] Address [address] [place] [address] Care Team Providers Care Core Laying Machine Operator Name Role Phone Mily Lawrence MD Primary Care Provider [phone] Ralf Gastelum MD Unavailable [phone] Gretchen Juan MD Unavailable [phone] Katherine Snow PA-C Unavailable [phone] Per Leahy PA-C Unavailable [phone] Encounter Details Date Type Department Care Team Description 07/09/2019 Servomechanism Assembler Report Medical Records [address] [place] [address] Evelio Smith Social History Tobacco Use Types [...] on filedocumented in this encounter Care Teams Core Laying Machine Operator Relationship Specialty Start Date End Date Mily Lawrence MD PCP - General Internal Medicine 03/09/19 Ralf Gastelum MD 300 [facility] [address] [place] [address] Specialist Cardiovascular Disease 06/08/22 Gretchen Juan MD 175 [facility] 300 [place] [address] Surgeon Neurosurgery 02/13/23 Katherine Snow PA-C 175 [facility] 300 [place] [address] Specialist Neurosurgery 02/13/23 Per Leahy PA-C [address] [facility] 300 [place] [address] Specialist Neurosurgery 02/13/23 documented as of this encounter
--- OUTSIDE RECORDS SUMMARY | 2024-11-23 13:36 | XMS_ITS | Encounter Summary ---
Author Organization [facility] Address [address] [place] [address] Care Team Providers Care Iron Guardrail Installer Name Role Phone Mily Lawrence MD Primary Care Provider [phone] Ralf Gastelum MD Unavailable [phone] Gretchen Juan MD Unavailable [phone] Katherine Snow PA-C Unavailable [phone] Per Leahy PA-C Unavailable [phone] Encounter Details Date Type Department Care Team Description 08/25/2019 Buffing Turner And Counter Report Medical Records [address] [place] [address] Evelio Smith Social History Tobacco Use Types [...] on filedocumented in this encounter Care Teams Iron Guardrail Installer Relationship Specialty Start Date End Date Mily Lawrence MD PCP - General Internal Medicine 03/09/19 Ralf Gastelum MD 300 [facility] [address] [place] [address] Specialist Cardiovascular Disease 06/08/22 Gretchen Juan MD 175 [facility] 300 [place] [address] Surgeon Neurosurgery 02/13/23 Katherine Snow PA-C 175 [facility] 300 [place] [address] Specialist Neurosurgery 02/13/23 Per Leahy PA-C 175 [facility] 300 [place] [address] Specialist Neurosurgery 02/13/23 documented as of this encounter
--- OUTSIDE RECORDS SUMMARY | 2024-11-23 13:36 | XMS_ITS | Encounter Summary ---
Author Organization [facility] Address [address] [place] [address] Care Team Providers Care Ocular Care Technologist Name Role Phone Mily Lawrence MD Primary Care Provider [phone] Trey Mueller MD Primary Care Provider Unavaila ble Mily Lawrence MD Primary Care Provider +[phone] Ralf Gastelum MD Unavailable [phone] Gretchen Juan MD Unavailable [phone] Katherine Snow PA-C Unavailable [phone] Per Leahy PA-C Unavailable [phone] Reason for Visit * Reason Onset Date Comments Form 11/07/2018 Encounter Details Date Type Department Care Team Description 11/07/2018 Telephone Internal Medicine - [address], [address] [place] [address] Mily Lawrence MD [address] [place] [phone] Form Social History Tobacco Use Types Packs/Day Years Used Date Smoking Tobacco: Never Smokeless Tobacco: Never Alcohol Use Standard Drinks/Week Comments Yes 0 (1 standard drink = 0.6 oz pur e alcohol) socialy Intimate Partner Violence Answer Date R ecorded [...] on filedocumented in this encounter Care Teams Ocular Care Technologist Relationship Specialty Start Date End Date Mily Lawrence MD PCP - General Internal Medicine 03/13/17 01/01/19 Trey Mueller MD PCP - General Internal Medicine 01/02/19 03/08/19 Mily Lawrence MD PCP - General Internal Medicine 03/09/19 Ralf Gastelum MD 300 [facility] 154 [place] [address] Specialist Cardiovascular Disease 06/08/22 Gretchen Juan MD [address] [address] Surgeon Neurosurgery 02/13/23 Katherine Snow PA-C 175 [facility] 300 [place] [address] Specialist Neurosurgery 02/13/23 Per Leahy PA-C [address] [address] Specialist Neurosurgery 02/13/23 documented as of this encounter
--- OUTSIDE RECORDS SUMMARY | 2024-11-23 13:36 | XMS_ITS | Continuity of Care Document ---
Author Organization [facility] Address [address] [place] [address] Phone Care Team Providers Care Patient Accounts Specialist Name Role Phone Ryan Duran MD Unavailable Unavailable Procedures Procedure Date [employer] Sales tax [employer] Advance Directives Directive Yes / No Effective Date File Name No Information Encounters Encounter Description Practice Location Reason(s) For Visit Diagnoses Date Provider Providers Copied on Encounter [facility], [address] [place] [address], [address] [place] [address], tel:[phone] [facility] No Information Renee Davis. [address] [place] [address], [address] [place] [address] , . tel: [phone] [facility], [address] [place] [address], [id number], tel:[phone] [facility] Location No Information Renee Davis. [address] [place] [address], [id number] , . tel: [phone] [facility], [address] [place] [address], [address] [place] [address], tel:[phone] [facility] No Information Renee Davis. [address] [place] [address], [place], [place], [id number] , . tel: [phone] Family History Family Member Type Diagnosis Age At Onset No Information Payers Payer name Insurance type Covered libertarian ID Authoriza tion(s) No Information Social History [...]
--- OUTSIDE RECORDS SUMMARY | 2024-11-23 13:36 | XMS_ITS | Encounter Summary ---
Author Organization [facility] Address [address] [place] [address] Care Team Providers Care Oracle Business Analyst Name Role Phone Mily Lawrence MD Primary Care Provider [phone] Trey Mueller MD Primary Care Provider Unavaila ble Mily Lawrence MD Primary Care Provider [phone] Ralf Gastelum MD Unavailable [phone] Gretchen Juan MD Unavailable [phone] Katherine Snow PA-C Unavailable [phone] Per Leahy PA-C Unavailable [phone] Encounter Details Date Type Department Care Team Description 10/22/2018 [facility] Manager Report Medical Records [address] [place] [address] Marci Bernardo PA-C [address] [place] [address] Social History Tobacco Use Types Packs/Day Years [...] on filedocumented in this encounter Care Teams Oracle Business Analyst Relationship Specialty Start Date End Date Mily Lawrence MD PCP - General Internal Medicine 03/13/17 01/01/19 Trey Mueller MD PCP - General Internal Medicine 01/02/19 03/08/19 Mily Lawrence MD PCP - General Internal Medicine 03/09/19 Ralf Gastelum MD 300 [facility] 154 [place] [address] Specialist Cardiovascular Disease 06/08/22 Gretchen Juan MD [address] [address] Surgeon Neurosurgery 02/13/23 Katherine Snow PA-C [address] [address] Specialist Neurosurgery 02/13/23 Per Leahy PA-C [address] [address] Specialist Neurosurgery 02/13/23 documented as of this encounter
--- OUTSIDE RECORDS SUMMARY | 2024-11-23 13:36 | XMS_ITS | Encounter Summary ---
Author Organization [facility] Address [address] [place] [address] Care Team Providers Care Produce Assistant Name Role Phone Mily Lawrence MD Primary Care Provider [phone] Ralf Gastelum MD Unavailable [phone] Gretchen Juan MD Unavailable [phone] Katherine Snow PA-C Unavailable [phone] Per Leahy PA-C Unavailable [phone] Encounter Details Date Type Department Care Team Description 06/29/2019 Chief Safety Officer Report Medical Records [address] [place] [address] Evelio Smith Social History Tobacco Use Types [...] on filedocumented in this encounter Care Teams Produce Assistant Relationship Specialty Start Date End Date Mily Lawrence MD PCP - General Internal Medicine 03/09/19 Ralf Gastelum MD 300 [facility] [address] [place] [address] Specialist Cardiovascular Disease 06/08/22 Gretchen Juan MD 175 [facility] 300 [place] [address] Surgeon Neurosurgery 02/13/23 Katherine Snow PA-C 175 [facility] 300 [place] [address] Specialist Neurosurgery 02/13/23 Per Leahy PA-C 175 [facility] 300 [place] [address] Specialist Neurosurgery 02/13/23 documented as of this encounter
--- OUTSIDE RECORDS SUMMARY | 2024-11-23 13:36 | XMS_ITS | Encounter Summary ---
Author Organization [facility] Address [address] [place] [address] Care Team Providers Care Equal Opportunity Assistant Name Role Phone Mily Lawrence MD Primary Care Provider [phone]- [phone] Ralf Gastelum MD Unavailable [phone] Gretchen Juan MD Unavailable [phone] Katherine Snow PA-C Unavailable [phone] Per Leahy PA-C Unavailable [phone] Encounter Details Date Type Department Care Team Description 08/25/2021 [facility] Medical Records [address] [place] [address] Abstract, Provider Social History Tobacco Use Types Packs/Day Years [...] have Coronavirus / COVID-19? No / Unsure 08/25/2021 2:52 PM EDT documented as of this encounter Plan of Treatment Not on file documented as of this encounter Visit Diagnoses Not on filedocumented in this encounter Care Teams Equal Opportunity Assistant Relationship Specialty Start Date End Date Mily Lawrence MD PCP - General Internal Medicine 03/09/19 Ralf Gastelum MD 300 [facility] [address] [place] [address] Specialist Cardiovascular Disease 06/08/22 Gretchen Juan MD 175 [facility] 300 [place] [address] Surgeon Neurosurgery 02/13/23 Katherine Snow PA-C 175 [facility] 300 [place] [address] Specialist Neurosurgery 02/13/23 Per Leahy PA-C 175 [facility] 300 [place] [address] Specialist Neurosurgery 02/13/23 documented as of this encounter
--- OUTSIDE RECORDS SUMMARY | 2024-11-23 13:36 | XMS_ITS | Encounter Summary ---
Author Organization [facility] Address [address] [place] [address] Care Team Providers Care Application Design Engineer Name Role Phone Mily Lawrence MD Primary Care Provider [phone] Trey Mueller MD Primary Care Provider Unavaila ble Mily Lawrence MD Primary Care Provider [phone] Ralf Gastelum MD Unavailable [phone] Gretchen Juan MD Unavailable [phone] Katherine Snow PA-C Unavailable [phone] Per Leahy PA-C Unavailable [phone] Encounter Details Date Type Department Care Team Description 11/24/2018 Release of Information Medical Records [address] [place] [address] Abstract, Provider Social History Tobacco Use Types [...] on filedocumented in this encounter Care Teams Application Design Engineer Relationship Specialty Start Date End Date Mily Lawrence MD PCP - General Internal Medicine 03/13/17 01/01/19 Trey Mueller MD PCP - General Internal Medicine 01/02/19 03/08/19 Mily Lawrence MD PCP - General Internal Medicine 03/09/19 Ralf Gastelum MD 300 [facility] 154 [place] [address] Specialist Cardiovascular Disease 06/08/22 Gretchen Juan MD [address] [address] Surgeon Neurosurgery 02/13/23 Katherine Snow PA-C [address] [address] Specialist Neurosurgery 02/13/23 Per Leahy PA-C [address] [address] Specialist Neurosurgery 02/13/23 documented as of this encounter
--- OUTSIDE RECORDS SUMMARY | 2024-11-23 13:36 | XMS_ITS | Encounter Summary ---
Author Organization [facility] Address [address] [place] [address] Care Team Providers Care 6Th Grade Teacher Name Role Phone Mily Lawrence MD Primary Care Provider [phone] Ralf Gastelum MD Unavailable [phone] Gretchen Juan MD Unavailable [phone] Katherine Snow PA-C Unavailable [phone] Per Leahy PA-C Unavailable [phone] Reason for Visit * Reason Onset Date Comments refill request 06/10/2019 Encounter Details Date Type Department Care Team Description 06/10/2019 Refill Internal Medicine - [address], [address] [place] [address] Mily Lawrence MD [address] [place] [phone] refill request Social History Tobacco Use Types Packs/Day Years [...] encounter Miscellaneous Notes * Telephone Encounter - Helen Henson - 06/10/2019 10:35 AM EDT Patient would like script to be: E-PRESCRIBED/FAXED TO PHARMACY WHEN WAS THE PATIENT'S LAST APPOINTMENT IN ADULT MEDICINE? 04/22/19 WHEN WAS THE LAST TIME THE PATIENT SAW THEIR PCP? Same as above Does patient have an upcoming appointment? Yes 07/23/19 (THE MEDICATION REQUESTED IS ON THE MED LIST ABOVE) All of the medications requested were on the CURRENT MEDS list Did you check the Pharmacy information above?: YES Patient wants: 90 -day supply Is this a mail order prescription request ? NO If the refill is from a FAXED refill request what is the RX # listed on the fax? N/A Patients current insurance carrier is: Payor: [employer] FFS / Plan: [employer] / Product Type: MEDICAID RISK documented in this encounter Plan of Treatment Not on file documented as of this encounter Visit Diagnoses Not on filedocumented in this encounter Care Teams 6Th Grade Teacher Relationship Specialty Start Date End Date Mily Lawrence MD PCP - General Internal Medicine 03/09/19 Ralf Gastelum MD [address] [place], [place] [address], [place] [address] Specialist Cardiovascular Disease 06/08/22 Gretchen Juan MD 175 [facility] 300 [place] [address] Surgeon Neurosurgery 02/13/23 Katherine Snow PA-C [address] [address] Specialist Neurosurgery 02/13/23 Per Leahy PA-C 175 [facility] 300 [place] [address] Specialist Neurosurgery 02/13/23 documented as of this encounter
--- OUTSIDE RECORDS SUMMARY | 2024-11-23 13:36 | XMS_ITS | Encounter Summary ---
Author Organization [facility] Address [address] [place] [address] Care Team Providers Care Cashier Name Role Phone Mily Lawrence MD Primary Care Provider +[phone] Trey Mueller MD Primary Care Provider Unavaila ble Mily Lawrence MD Primary Care Provider [phone] Ralf Gastelum MD Unavailable [phone] Gretchen Juan MD Unavailable [phone] Katherine Snow PA-C Unavailable [phone] Per Leahy PA-C Unavailable [phone] Encounter Details Date Type Department Care Team Description 10/24/2018 Documentation Clerk Report Medical Records [address] [place] [address] Per Leahy PA-C 175 [facility] 300 [place] [address] Social History Tobacco Use Types Packs/Day Years [...] on filedocumented in this encounter Care Teams Cashier Relationship Specialty Start Date End Date Mily Lawrence MD PCP - General Internal Medicine 03/13/17 01/01/19 Trey Mueller MD PCP - General Internal Medicine 01/02/19 03/08/19 Mily Lawrence MD PCP - General Internal Medicine 03/09/19 Ralf Gastelum MD 300 [facility] [address] [place] [address] Specialist Cardiovascular Disease 06/08/22 Gretchen Juan MD [address] [address] Surgeon Neurosurgery 02/13/23 Katherine Snow PA-C 175 [facility] 300 [place] [address] Specialist Neurosurgery 02/13/23 Per Leahy PA-C 175 [facility] 300 [place] [address] Specialist Neurosurgery 02/13/23 documented as of this encounter
--- OUTSIDE RECORDS SUMMARY | 2024-11-23 13:36 | XMS_ITS | Encounter Summary ---
Author Organization [facility] Address [address] [place] [address] Care Team Providers Care Stucco Worker Name Role Phone Mily Lawrence MD Primary Care Provider [phone] Ralf Gastelum MD Unavailable [phone] Gretchen Juan MD Unavailable [phone] Katherine Snow PA-C Unavailable [phone] Per Leahy PA-C Unavailable [phone] Reason for Visit * Reason Comments E-prescribe Rx Request Encounter Details Date Type Department Care Team Description 10/05/2021 Refill Internal Medicine - [address], [address] [place] [address] Mily Lawrence MD [address] [place] [phone] E-prescribe Rx Request Social History Tobacco [...] have Coronavirus / COVID-19? No / Unsure 09/18/2021 3:47 PM EST documented as of this encounter Miscellaneous Notes * Telephone Encounter - Portia Kendrick - 10/09/2021 1:48 PM EST BP Readings from Last 3 Encounters: 08/31/21 (!) 130/98 07/13/21 114/65 05/16/21 122/86 * Telephone Encounter - Kyra Gleason - 10/09/2021 1:31 PM EST LOGAN 08/31/2021 NOV 10/17/2021 90 day supply documented in this encounter Plan of Treatment Not on file documented as of this encounter Visit Diagnoses Not on filedocumented in this encounter Care Teams Stucco Worker Relationship Specialty Start Date End Date Mily Lawrence MD PCP - General Internal Medicine 03/09/19 Ralf Gastelum MD 300 [facility] [address] [place] [address] Specialist Cardiovascular Disease 06/08/22 Gretchen Juan MD 175 [facility] 300 [place] [address] Surgeon Neurosurgery 02/13/23 Katherine Snow PA-C [address] [address] Specialist Neurosurgery 02/13/23 Per Leahy PA-C [address] [address] Specialist Neurosurgery 02/13/23 documented as of this encounter
--- OUTSIDE RECORDS SUMMARY | 2024-11-23 13:36 | XMS_ITS | Encounter Summary ---
Author Organization [facility] Address [address] [place] [address] Care Team Providers Care Engraver Automatic Name Role Phone Mily Lawrence MD Primary Care Provider [phone] Ralf Gastelum MD Unavailable [phone] Gretchen Juan MD Unavailable [phone] Katherine Snow PA-C Unavailable [phone] Per Leahy PA-C Unavailable [phone] Encounter Details Date Type Department Care Team Description 09/16/2019 Orders Only Podiatry - [address] [address] Yvonne Medina DPM Posterior tibial tendon tear, traumatic, right, initial encounter; Pain in right foot; Acute deep vein thrombosis (DVT) of calf muscle vein of right lower extremity Social History Tobacco Use Types Packs/Day Years [...] Procedure Name Priority Date/Time Associated Diagnosis Comments MRI OF LEG / LOWER EXTREMITY (NOT JOINT) W/WO CONTRAST Routine 09/15/2019 Posterior tibial tendon tear, traumatic, right, initial encounter Pain in right foot Acute deep vein thrombosis (DVT) of calf muscle vein of right lower extremity documented in this encounter Results * MRI OF LEG / LOWER EXTREMITY (NOT JOINT) W/WO CONTRAST (09/15/2019) Yvonne Medina DPM MRI Performing Organization Address City/State/[facility] Co de Phone Number [address] documented in this encounter Visit Diagnoses Diagnosis Posterior tibial tendon tear, traumatic, right, initial encounter Pain in right foot Pain in limb Acute deep vein thrombosis (DVT) of calf muscle vein of right lower extremity (HCC) documented in this encounter Care Teams Engraver Automatic Relationship Specialty Start Date End Date Mily Lawrence MD PCP - General Internal Medicine 03/09/19 Ralf Gastelum MD [address] [facility] [address] [place] [address] Specialist Cardiovascular Disease 06/08/22 Gretchen Juan MD [address] [facility] [address] [place] [address] Surgeon Neurosurgery 02/13/23 Katherine Snow PA-C 175 [facility] [address] [place] [address] Specialist Neurosurgery 02/13/23 Per Leahy PA-C [address] [facility] [address] [place] [address] Specialist Neurosurgery 02/13/23 documented as of this encounter
--- OUTSIDE RECORDS SUMMARY | 2024-11-23 13:36 | XMS_ITS | Data Portability ---
Author Organization [facility] Address [address] [facility] [address] [place] [address] Care Team Providers Care Brazing Furnace Feeder Name Role Phone MICHAEL HOOKER Primary Care Provider [facility] ([facility]) OTHER Assessment Encounter Date Assessment Date [...] same. She needs a referral to Dr. Sinder, neurosurgeon after the MRI. I will schedule [...] like a referral to Dr. Hayward in [place], [place] I recommend physical therapy with Anderson Murcia at the in [place], [place]. She will follow up in six [...] booked for the same. She needs a speedboat driver on the day of the procedure. [...] booked for the same. She needs a speedboat driver on the day of the procedure. Insurance approval needed. I have encouraged to??start physical therapy and discussed the importance of core strengthening. She si on [employer] and will call back after consulting with [...] 2022 023 HAYDEN Hayward MD, Oskar Garcia, [place], [address], 05:00:52 Procedures None recorded. Surgeries None recorded. Imaging None recorded. Medication Orders None recorded. Patient TargetsNo targets recorded. Patient Instructions Encounter Date Encounter Id Patient Instructions Last Modified By Organization Details Last Modified Time 01/24/2023 [id number] She was advised against bed rest lasting longer than four days and to continue activities as tolerated. [email or web address] Not available 01/30/2023 16:21:29 04/01/2023 [id number] physical therapy* HAYDEN Not available 10/13/2023 05:00:58 She was advised against bed rest lasting longer than four days and to continue activities as tolerated. [email or web address] Not available 04/05/2023 11:18:39 12/02/2023 [id number] She was advised against bed rest lasting longer than four days and to continue activities as tolerated. [email or web address] Not available 12/02/2023 14:52:52 03/27/2024 [id number] She was advised against bed rest lasting [...] ney spine No observ ation record ed. [facility] [address] [place] [address], [address], 01/24/2023 13:46:21 02/09/20 23 02/06/2023 MRI, cervi ney spine , w/o contr ast No observ ation record ed. [facility] [address] [place], [address], 02/11/2023 15:20:32 Result Notes None recorded. Problems Name Problem SNOMED Code Status Onset Date Resolution Date Notes Provider Name and Address Organization Details Recorded Time Brachial radiculitis 55634850 Active Evelio grady MD [address] , [address], [place], [address], [place] [facility] 6 08:51:25 Displacement of lumbar intervertebral disc without myelopathy 65573144 Active Evelio grady MD [address] , [address], [place], [address], [place] [facility] 6 08:55:36 Lumbosacral radiculitis [id number] Lauryn grady MD [address] , [address], [place], [address], [place] [facility] 6 08:55:36 Degeneration of cervical intervertebral disc [id number] Lauryn grady MD [address] , [address], [place], [address], [place] [facility] 6 08:51:25 Cervical post-laminecto my syndrome 902283046 Active Evelio grady MD [address] , [address], [facility] [place], [address], [place] [facility] 6 08:51:25 Occipital headache 041907 Active Evelio grady MD [address] [facility] [place] , [address], [place], [address], [place] [facility] 6 08:51:25 Problem Notes None recorded. Procedures Surgical History Date Name Laterality Status Provider Name and Address Organization Details Recorded Time 01/09/20 24 Lumbar Epidural steroid injection under fluoroscopic guidance completed Evelio Smith MD [address] [facility] [place] , [address], [place], [address], [place] [facility] 01/09/2024 11:18:14 12/26/19 23 Lumbar Epidural steroid injection under fluoroscopic guidance completed Evelio Smith MD [address] [facility] [place] , [address], [place], [address], [place] [facility] 12/25/2022 13:26:44 07/08/20 19 Greater Occipital Nerve Block(s) completed Evelio Smith MD [address] [facility] [place] , [address], [place], [address], [place] [facility] 07/09/2019 14:01:34 01/07/20 19 Cervical Epidural Steroid injection under fluroscopic guidance completed Evelio Smith MD [address] [facility] [place] , [address], [place], [address], [place] [facility] 01/07/2019 10:50:11 04/24/20 17 Lumbar Epidural steroid injection under fluoroscopic guidance completed Evelio Smith MD [address] [facility] [place] , [address], [place], [address], [place] [facility] 05/02/2017 10:32:28 10/21/19 17 Lumbar Fusion completed Elsa Lainez [place] [facility] 12/18/2018 13:40:37 10/02/20 16 Lumbar Epidural steroid injection under fluoroscopic guidance completed Evelio Smith MD [address] , [address], [place], [address], [place] [facility] 10/02/2016 14:32:08 04/04/20 16 Lumbar Epidural steroid injection under fluoroscopic guidance completed Evelio Smith MD [address] , [address], [place], [address], [place] [facility] 04/04/2016 11:07:10 [...] LastModified Time 12/25/2022 XR, cervical spine completed [facility] [address] [place] [address], [address], 01/24/2023 13:46:21 02/06/2023 MRI, cervical spine, w/o contrast completed [facility] [address] [place] [address], [address], 02/11/2023 15:20:32 Procedure Notes None recorded. Medical Equipment None Reported. Allergies Allergen ID Allergen Name Allergen Category Reaction Reaction Severity Criticality Documentation Date Start Date Code Code System Note Provider Name and Address Organization Details Recorded Time 72541 Substance with sulfonami de structure and antibacte rial mechanism of action (substanc e) medicatio n hives Not available Not available 02/27/2016 31434 8003 SNOMED Elsa paris [place] - [place] [...] ar syringe TO BE ADMINISTE RED BY [facility] T FOR IMMUNIZAT ION 12/18 completed Not [...] % 107 mm[Hg] 77 mm[Hg] Corina Saldivar [place] [facility] 3 13:18:03 Date Recorded Body height Heart rate Oxygen saturation Oxygen saturation in Arterial blood by Pulse oximetry Body mass index (BMI) Body weight Systolic blood pressure Diastolic blood pressure Provider Name and Address Organization Details Last Updated DateTime 3 162.56 cm 89 /min 98 % 98 % 35.2 kg/m2 19317.4 4 g 165 mm[Hg] 77 mm[Hg] Mary Zamarripa [place] [facility] 3 13:23:02 Date Recorded Body height Heart rate Oxygen saturation Oxygen saturation in Arterial blood by Pulse oximetry Body mass index (BMI) Body weight Systolic blood pressure Diastolic blood pressure Provider Name and Address Organization Details Last Updated DateTime 4 162.56 cm 75 /min 96 % 96 % 34.3 kg/m2 21170.4 7 g 150 mm[Hg] 90 mm[Hg] Deana [...] /min 97 % 97 % 34.3 kg/m2 87624.4 7 g 144 mm[Hg] 91 mm[Hg] Evelio grady MD [facility] [address] , [address], [place], [address], [place] [facility] 4 10:28:41 Social History Question Answer Notes LastModified by Organizat ion Details LastModified Time Tobacco Smoking Status Never Smoker Not Available [facility] 08/05/2020 03:16:12 What Is Your Level Of Alcohol Consumption? Moderate [id number] Information not available 08/05/2020 Are You Currently Employed? No Disability [email or web address] Information not available 11/23/2021 Which Illicit Or Recreational Drugs Have You Used? No [id number] Information not available 08/05/2020 Education 2 [employer] Information not available 02/27/2016 Live Alone Or With Others? Alone [email or web address] Information not available 02/27/2016 Marital Status [email or web address] Informatio n not available 02/27/2016 What Was The Date Of Your Most Recent Tobacco Screening? 01/31/2019 [id number] Information not available 08/05/2020 Sex: Unknown Functional Status None recorded. Mental Status None recorded. Family History Nothing Reported. Medical History Condition Response Anxiety Disorder Y Arthritis Y Hypertension Y Depression Y Gynecological HistoryNo gynecological history recorded. Obstetrics History GPAL:G 0 P 0 0 0 0 Past Encounters Encounter ID Performer Location Encounter Start Date Encounter Closed Date Diagnosis/Indication Diagnosis SNOMED-CT Code Diagnosis ICD10 Code Diagnosis Note [id number] Evelio Smith MD PAIN OFFICE [address] [place] [address] 02/27/2016 14:19:46 02/28/2016 08:47:29 Displacement of lumbar intervertebral disc without myelopathy 65716610 M51.26 Lumbosacra l radiculitis 85193928 M54.17 Brachial radiculitis 278 92989 M54.12 Cervical post-laminectomy syndrome 517153201 M96.1 Degenerati on of cervical intervertebral disc 67309816 M50.30 Occipital headache 56349 7 R51 [id number] Evelio Smith MD PAIN OFFICE [address] [place] [address] 03/20/2016 08:42:32 03/20/2016 10:30:41 Displacement of lumbar intervertebral disc without myelopathy 72106517 M51.26 Lumbosacra l radiculitis 67392999 M54.17 [id number] Evelio Smith MD PAIN OFFICE [address] [place] [address] 04/04/2016 10:15:22 04/04/2016 11:15:33 Displacement of lumbar intervertebral disc without myelopathy 32192376 M51.26 Lumbosacra l radiculitis 46219509 M54.17 [id number] Evelio Smith MD PAIN OFFICE [address] [place] [address] 05/10/2016 11:47:50 05/15/2016 08:55:57 Displacement of lumbar intervertebral disc without myelopathy 97881003 M51.26 Lumbosacra l radiculitis 45688442 M54.17 [id number] Evelio Smith MD PAIN OFFICE [address] [place] [address] 09/03/2016 10:14:59 09/20/2016 08:51:29 Lumbosacral radiculitis 56108341 M54.17 Displaceme nt of lumbar intervertebral disc without myelopathy 10264706 M51.26 [id number] Evelio Smith MD PAIN OFFICE [address] [place] [address] 10/02/2016 13:29:26 10/03/2016 14:29:14 Displacement of lumbar intervertebral disc without myelopathy 12070828 M51.26 Lumbosacra l radiculitis 42434498 M54.17 [id number] Evelio Smith MD PAIN OFFICE [address] [place] [address] 03/27/2017 13:22:06 03/28/2017 16:32:03 Cervical radiculopathy 10266869 M54.12 Degenerati on of cervical intervertebral disc 51042372 M50.30 Muscle pain 90432425 M79 .1 Displaceme nt of lumbar intervertebral disc without myelopathy 12068416 M51.26 Lumbosacra l radiculitis 58098344 M54.17 [id number] Evelio Smith MD PAIN OFFICE [address] [place] [address] 04/24/2017 13:30:47 05/02/2017 13:43:27 Cervical post-laminectomy syndrome 499616168 M96.1 Cervical radiculopathy 79767009 M54.12 Displaceme nt of lumbar intervertebral disc without myelopathy 78106922 M51.26 Lumbosacra l radiculitis 66333112 M54.17 [id number] Evelio Smith MD [facility] [address] [place] [address] 05/16/2017 11:40:03 05/17/2017 11:19:26 Brachial radiculitis 20633486 M54.12 Degenerati on of cervical intervertebral disc 85165295 M50.30 Cervical post-laminectomy syndrome 931577117 M96.1 Occipital headache 25140 7 R51 [id number] Evelio Smith MD PAIN OFFICE [address] [place] [address] 12/18/2018 13:31:38 12/18/2018 16:14:01 Brachial radiculitis 46656778 M54.12 Degenerati on of cervical intervertebral disc 53265599 M50.30 Cervical post-laminectomy syndrome 182972489 M96.1 Occipital headache 50006 7 R51 [id number] Evelio Smith MD PAIN OFFICE [address] [place] [address] 01/06/2019 08:42:42 01/07/2019 10:53:06 Brachial radiculitis 07716508 M54.12 Degenerati on of cervical intervertebral disc 68112773 M50.30 Cervical post-laminectomy syndrome 845856428 M96.1 Occipital headache 97526 7 R51 [id number] Evelio Smith MD PAIN OFFICE [address] [place] [address] 01/28/2019 14:04:46 01/31/2019 10:24:31 Brachial radiculitis 85962167 M54.12 Degenerati on of cervical intervertebral disc 80020633 M50.30 Cervical post-laminectomy syndrome 784272014 M96.1 Occipital headache 37795 7 R51 [id number] Evelio Smith MD PAIN OFFICE [address] [place] [address] 06/09/2019 14:32:10 06/26/2019 15:58:13 Occipital headache 119794 R51 Degenerati on of cervical intervertebral disc 14110772 M50.30 Cervical post-laminectomy syndrome 934320837 M96.1 Brachial radiculitis 278 48380 M54.12 [id number] Evelio Smith MD [facility] PAIN [facility] [address] [place] [address] 07/08/2019 15:29:45 07/09/2019 14:03:49 Occipital headache 777009 R51 Cervical post-laminectomy syndrome 010971007 M96.1 Degenerati on of cervical intervertebral disc 04204479 M50.30 Brachial radiculitis 278 84152 M54.12 [id number] Evelio Smith MD PAIN OFFICE [address] [place] [address] 08/24/2019 13:24:13 08/25/2019 11:25:36 Occipital headache 577805 R51 Degenerati on of cervical intervertebral disc 19583058 M50.30 Cervical post-laminectomy syndrome 560310674 M96.1 Brachial radiculitis 278 16920 M54.12 [id number] Evelio Smith MD [facility] [address] [facility] [place] [address] 03/07/2020 13:03:14 03/07/2020 14:34:46 Occipital headache 907916 R51 Degenerati on of cervical intervertebral disc 77429524 M50.30 Cervical post-laminectomy syndrome 744275365 M96.1 Brachial radiculitis 278 09989 M54.12 [id number] Evelio Smith MD PAIN OFFICE [address] [facility] [place] [address] 11/23/2021 13:01:22 11/23/2021 13:27:11 Displacement of lumbar intervertebral disc without myelopathy 97909360 M51.26 Lumbosacra l radiculitis 55620386 M54.17 Brachial radiculitis 278 07981 M54.12 Cervical post-laminectomy syndrome 299518612 M96.1 Degenerati on of cervical intervertebral disc 84264146 M50.30 Occipital headache 91289 7 R51.9 [id number] Evelio Smith MD PAIN OFFICE [address] [facility] [place] [address] 09/12/2022 08:14:50 09/12/2022 15:42:09 Displacement of lumbar intervertebral disc without myelopathy 45073486 M51.26 Lumbosacra l radiculitis 50148553 M54.17 Brachial radiculitis 278 82331 M54.12 Cervical post-laminectomy syndrome 718316008 M96.1 Degenerati on of cervical intervertebral disc 80671521 M50.30 Occipital headache 84005 7 R51.9 [id number] Evelio Smith MD PAIN OFFICE [address] [place] [address] 12/06/2022 14:08:50 12/13/2022 14:02:45 Displacement of lumbar intervertebral disc without myelopathy 52210998 M51.26 Lumbosacra l radiculitis 38357797 M54.17 Brachial radiculitis 278 20739 M54.12 Cervical post-laminectomy syndrome 761665836 M96.1 Degenerati on of cervical intervertebral disc 44791035 M50.30 Occipital headache 72470 7 R51.9 [id number] Evelio Smith MD [facility] [address] [place] [address] 12/25/2022 11:32:27 12/25/2022 13:59:32 Displacement of lumbar intervertebral disc without myelopathy 02024653 M51.26 Lumbosacra l radiculitis 92869314 M54.17 Brachial radiculitis 278 31846 M54.12 Cervical post-laminectomy syndrome 586393230 M96.1 Degenerati on of cervical intervertebral disc 79461303 M50.30 Occipital headache 91754 7 R51.9 [id number] Evelio Smith MD [facility] [address] [place] [address] 01/24/2023 13:09:55 01/31/2023 14:49:17 Brachial radiculitis 92303051 M54.12 Degenerati on of cervical intervertebral disc 75465851 M50.30 Cervical post-laminectomy syndrome 973015245 M96.1 Occipital headache 23009 7 R51.9 [id number] Evelio Smith MD [facility] PAIN [facility] [address] [place] [address] 04/01/2023 13:14:13 04/05/2023 12:19:21 Lumbosacral radiculitis 03817446 M54.17 Brachial radiculitis 278 01986 M54.12 Degenerati on of cervical intervertebral disc 93820334 M50.30 Cervical post-laminectomy syndrome 338045503 M96.1 Occipital headache 43550 7 R51.9 [id number] Evelio Smith MD [facility] PAIN [facility] [address] [place] [address] 12/02/2023 14:06:57 12/02/2023 14:57:45 Lumbosacral radiculitis 58381620 M54.17 Displaceme nt of lumbar intervertebral disc without myelopathy 61960687 M51.26 Brachial radiculitis 278 30497 M54.12 Cervical post-laminectomy syndrome 168213610 M96.1 Degenerati on of cervical intervertebral disc 43499535 M50.30 Occipital headache 14239 7 R51.9 [id number] Evelio Smith MD PAIN OFFICE [address] [place] [address] 01/09/2024 10:01:40 01/09/2024 15:01:59 Displacement of lumbar intervertebral disc without myelopathy 12114389 M51.26 Lumbosacra l radiculitis 77664867 M54.17 Brachial radiculitis 278 93296 M54.12 Cervical post-laminectomy syndrome 772571892 M96.1 Degenerati on of cervical intervertebral disc 43939346 M50.30 Occipital headache 68639 7 R51.9 [id number] Evelio Smith MD PAIN OFFICE [address] [place] [address] 03/27/2024 10:21:43 03/31/2024 16:07:49 Displacement of lumbar intervertebral disc without myelopathy 40510691 M51.26 Lumbosacra l radiculitis 08531691 M54.17 Brachial radiculitis 278 47651 M54.12 Cervical post-laminectomy syndrome 462300077 M96.1 Degenerati on of cervical intervertebral disc 46008068 M50.30 Occipital headache 48918 7 R51.9 Health Concerns Section Related Observation LastModified by Organization Detai ls LastModified Time None Recorded Concern Status LastModified by Organization Details LastModified Time None Recorded Advance Directives Directive None Recorded Payers Encounter Date Sequence Insurance Name Policy Number Policy Mojica Covered Member ID Mojica Member ID Guarantor Name 01/24/2023 2 [facility] - DOS PRIOR TO 2023 (MEDICARE REPLACEMENT/ADV ANTAGE - PPO) Ange Montesinos [id number] 04/01/2023 1 [facility] - DOS ON OR AFTER 2023 - ONE CARE (MEDICARE REPLACEMENT/ADV ANTAGE - HMO) Ange Montesinos [id number] 12/02/2023 1 [facility] - DOS ON OR AFTER 2023 - ONE CARE (MEDICARE REPLACEMENT/ADV ANTAGE - HMO) Ange Montesinos [id number] 01/09/2024 1 [facility] - DOS ON OR AFTER 2023 - ONE CARE (MEDICARE REPLACEMENT/ADV ANTAGE - HMO) Ange Montesinos [id number] 03/27/2024 1 [facility] - DOS ON OR AFTER 2023 - ONE CARE (MEDICARE REPLACEMENT/ADV ANTAGE - HMO) Ange Montesinos [id number] Notes Date Note Type Note Provider Name [...] bladder or bowel incontinence. Evelio Smith MD [address] [place] [address] , [address], [place], [address], [place] [facility] 01/31/2023 15:49:56 [...] this time.She states she has been having [place] Palsy for the past one year and sees Dr. 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 She has weakness in her arms and legs . Evelio Smith MD [address] , [address], [place], [address], [facility] 04/05/2023 12:20:51 12/02/2023 text/html She [...] [facility] [place] . She has done physical therapy and had an exacerbation of her pain.She has seen a neurosurgeon in [place], [place] . She wants to wait as she is planning on a knee replacement. She is also in grief as she has lost her mother last year. Evelio Smith MD [address] , [address], [place], [address], [facility] 12/04/2023 16:33:41 01/09/2024 text/html She is here for a lumbar epidural steroid injection under fluoroscopic guidance. Evelio Smith MD [address] , [address], [place], [address], [facility] 01/09/2024 15:09:18 03/27/2024 text/html She [...] [facility] [place] . She has done physical therapy and had an exacerbation of her pain.She has seen a neurosurgeon in [place] . She is S/P knee replacement on 03/03/[address] Segundo and is on eliquis. Evelio Smith MD [address] [place] [address] , [address], [place], [address], [place] [facility] 03/31/2024 16:06:56 OBGyn Episode No OBEpisode recorded.
--- OUTSIDE RECORDS SUMMARY | 2024-11-23 13:36 | XMS_ITS | Encounter Summary ---
Author Organization [facility] Address [address] [place] [address] Care Team Providers Care Assistant In Nursing Name Role Phone Mily Lawrence MD Primary Care Provider [phone] Trey Mueller MD Primary Care Provider Unavaila ble Mily Lawrence MD Primary Care Provider [phone] Ralf Gastelum MD Unavailable [phone] Gretchen Juan MD Unavailable [phone] Katherine Snow PA-C Unavailable [phone] Per Leahy PA-C Unavailable [phone] Encounter Details Date Type Department Care Team Description 11/19/2018 Digital Retoucher Report Medical Records [address] [place] [address] Marci Bernardo PA-C [address] [place] [address] Social History Tobacco Use Types Packs/Day Years [...] on filedocumented in this encounter Care Teams Assistant In Nursing Relationship Specialty Start Date End Date Mily Lawrence MD PCP - General Internal Medicine 03/13/17 01/01/19 Trey Mueller MD PCP - General Internal Medicine 01/02/19 03/08/19 Mily Lawrence MD PCP - General Internal Medicine 03/09/19 Ralf Gastelum MD 300 [facility] [address] [place] [address] Specialist Cardiovascular Disease 06/08/22 Gretchen Juan MD [address] [address] Surgeon Neurosurgery 02/13/23 Katherine Snow PA-C [address] [address] Specialist Neurosurgery 02/13/23 Per Leahy PA-C [address] [address] Specialist Neurosurgery 02/13/23 documented as of this encounter
--- OUTSIDE RECORDS SUMMARY | 2024-11-23 13:36 | XMS_ITS | Encounter Summary ---
Author Organization [facility] Address [address] [place] [address] Care Team Providers Care Grey Stock Recorder Name Role Phone Mily Lawrence MD Primary Care Provider [phone] Ralf Gastelum MD Unavailable [phone] Gretchen Snider MD Unavailable [phone] Katherine Snow PA-C Unavailable [phone] Per Leahy PA-C Unavailable [phone] Reason for Visit * Reason Onset Date Comments Provider Call Back 06/09/2019 Encounter Details Date Type Department Care Team Description 06/09/2019 Telephone Internal Medicine - [address], [address] [place], [place] [id number] Mily Lawrence MD [address] [place] [phone] Provider Call Back Social History Tobacco Use Types Packs/Day Years [...] encounter Miscellaneous Notes * Telephone Encounter - Ingrid Gorman M.A. - 06/15/2019 12:53 PM EDT Spoke with patient stated that Dr Tavarez please an order for nevre block but that only to help with the headaches waiting on insurance approval Please advise * Telephone Encounter - Mily Lawrence MD - 06/11/2019 11:06 PM EDT I don't know what the neurologist is going to do if neurosurgery and pain management cannot take care of her back pain. She need to talk to her pain management, what to do next * Telephone Encounter - Ingrid Gorman M.A. - 06/10/2019 2:22 PM EDT Please advise * Telephone Encounter - Mindy Dsouza - 06/09/2019 4:11 PM EDT Caller requesting call back from provider: Is the caller the patient? YES If caller is not the patient, what is the callers name? N/A Callers relationship to patient? N/A If person calling is not the patient themselves, is there a verbal release in FYI or permanent comments for this person: NO Reason for call back: Patient would like to speak to someone regarding the cervical pain she is having on her neck. She states that she went to see Dr. Tavarez [facility] [place] to get injection but it was not working. He sent her back to the surgeon, Dr. Snider, and she specified to the patient that she does not recommend surgery and sent her back to Dr. Tavarez to doa nerve block procedure. Which will only help with the headaches but not the nerve problem. Now told the patient to call PCP so they can referral her to a Neurologist. Patient needs tospeak to the Dr. Lawrence's [place] for more information on this status. Caller offered to speak with the nurse for assistance: YES Response: Patient offered to speak with nurse for assistance and patient agreed. Message forwarded to nurse. documented in this encounter Plan of Treatment Not on file documented as of this encounter Visit Diagnoses Not on filedocumented in this encounter Care Teams Grey Stock Recorder Relationship Specialty Start Date End Date Mily Lawrence MD PCP - General Internal Medicine 03/09/19 Ralf Gastelum MD 300 [facility] 154 [place] [address] Specialist Cardiovascular Disease 06/08/22 Gretchen Snider MD [address] [address] Surgeon Neurosurgery 02/13/23 Katherine Snow PA-C [address] [address] Specialist Neurosurgery 02/13/23 Per Leahy PA-C [address] [address] Specialist Neurosurgery 02/13/23 documented as of this encounter
--- OUTSIDE RECORDS SUMMARY | 2024-11-23 13:36 | XMS_ITS | Encounter Summary ---
Author Organization [facility] Address [address] [place] [address] Care Team Providers Care Facility Specialist Name Role Phone Mily Lawrence MD Primary Care Provider [phone] Ralf Gastelum MD Unavailable [phone] Gretchen Juan MD Unavailable [phone] Katherine Snow PA-C Unavailable [phone] Per Leahy PA-C Unavailable [phone] Reason for Visit * Reason Onset Date Comments refill request 09/25/2019 Metoprolol Encounter Details Date Type Department Care Team Description 09/25/2019 Telephone Internal Medicine - [address], [address] [place], [place] [phone] Mily Lawrence MD [address] [place] [phone] refill request (Metoprolol) Social History Tobacco Use Types Packs/Day Years [...] Telephone Encounter - Ingrid Gorman M.A. - 09/25/2019 1:55 PM EST Refilled sent to Dr Lawrence * Telephone Encounter - Alyce Vázquez R.N. - 09/25/2019 1:39 PM EST I received a voicemail from patient stating she is down to one pill of Metoprolol and realized she does not have any refills. Patient is requesting a rx be sent into her pharmacy [facility]. Thank you. Last OV 07/23/19, has f/u scheduled for 10/27/19. 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 Pending sale to [facility] @ [address] [place] [address] [id number] documented in this encounter Plan of Treatment Not on file documented as of this encounter Visit Diagnoses Not on filedocumented in this encounter Care Teams Facility Specialist Relationship Specialty Start Date End Date Mily Lawrence MD PCP - General Internal Medicine 03/09/19 Ralf Gastelum MD 300 [facility] [address] [place] [address] Specialist Cardiovascular Disease 06/08/22 Gretchen Juan MD 175 [facility] 300 [place] [address] Surgeon Neurosurgery 02/13/23 Katherine Snow PA-C [address] [address] Specialist Neurosurgery 02/13/23 Per Leahy PA-C [address] [address] Specialist Neurosurgery 02/13/23 documented as of this encounter
--- OUTSIDE RECORDS SUMMARY | 2024-11-23 13:37 | XMS_ITS | Encounter Summary ---
Author Organization [facility] Address [address] [place] [address] Care Team Providers Care Rod Pointer Name Role Phone Mily Lawrence MD Primary Care Provider [phone] Trey Mueller MD Primary Care Provider Unavaila ble Mily Lawrence MD Primary Care Provider [phone] Ralf Gastelum MD Unavailable [phone] Gretchen Juan MD Unavailable [phone] Katherine Snow PA-C Unavailable [phone] Per Leahy PA-C Unavailable [phone] Reason for Visit * Reason Onset Date Comments refill request 12/12/2018 Encounter Details Date Type Department Care Team Description 12/12/2018 Telephone Internal Medicine - [address], [address] [place] [address] Mily Lawrence MD [address] [place] [phone] refill request Social History Tobacco Use [...] encounter Miscellaneous Notes * Telephone Encounter - Mary Fernando - 12/12/2018 2:12 PM EST Patient would like script to be: E-PRESCRIBED/FAXED TO PHARMACY WHEN WAS THE PATIENT'S LAST APPOINTMENT IN ADULT MEDICINE? 11/2018 WHEN WAS THE LAST TIME THE PATIENT SAW THEIR PCP? Same as above Does patient have an upcoming appointment? Yes 03/2019 (THE MEDICATION REQUESTED IS ON THE MED LIST ABOVE) All of the medications requested were on the CURRENT MEDS list Did you check the Pharmacy information above?: Yes Patient wants: 30 -day supply with 5 refills Is this a mail order prescription request ? NO If the refill is from a FAXED refill request what is the RX # listed on the fax? N/A Patients current insurance carrier is: Payor: [employer] / Plan: [employer] / Product Type: MEDICAID RISK documented in this encounter Plan of Treatment Not on file documented as of this encounter Visit Diagnoses Not on filedocumented in this encounter Care Teams Rod Pointer Relationship Specialty Start Date End Date Mily Lawrence MD PCP - General Internal Medicine 03/13/17 01/01/19 Trey Mueller MD PCP - General Internal Medicine 01/02/19 03/08/19 Mily Lawrence MD PCP - General Internal Medicine 03/09/19 Ralf Gastelum MD 300 [facility] 154 [place] [address] Specialist Cardiovascular Disease 06/08/22 Gretchen Juan MD 175 [facility] 300 [place] [address] Surgeon Neurosurgery 02/13/23 Katherine Snow PA-C 175 [facility] 300 [place] [address] Specialist Neurosurgery 02/13/23 Per Leahy PA-C 175 [facility] 300 [place] [address] Specialist Neurosurgery 02/13/23 documented as of this encounter
--- OUTSIDE RECORDS SUMMARY | 2024-11-23 13:37 | XMS_ITS | Encounter Summary ---
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 Medical 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 [address] [place] [address] Evelio Smith Social History Tobacco Use Types [...] on filedocumented in this encounter Care Teams Aviation Operations Specialist Relationship Specialty Start Date End Date Mily Lawrence MD PCP - General Internal Medicine 03/13/17 01/01/19 Trey Mueller MD PCP - General Internal Medicine 01/02/19 03/08/19 Mily Lawrence MD PCP - General Internal Medicine 03/09/19 Ralf Gastelum MD 300 [facility] 154 [place] [address] Specialist Cardiovascular Disease 06/08/22 Gretchen Juan MD [address] [address] Surgeon Neurosurgery 02/13/23 Katherine Snow PA-C [address] [address] Specialist Neurosurgery 02/13/23 Per Leahy PA-C [address] [address] Specialist Neurosurgery 02/13/23 documented as of this encounter
--- OUTSIDE RECORDS SUMMARY | 2024-11-23 13:37 | XMS_ITS | Clinical Summary ---
Author Organization [employer] Building Address [address] [place] [address] Phone Care Team Providers Care Senior Behavioral Scientist Name Role Phone Michael Lawrence MD Primary Care Provider [phone] Allergies Active Allergy Reactions Criticality Noted Date Comments Adhesive Tape-Silicones Rash 01/04/2021 Paper tape Sulfa (Sulfonamide Antibiotics) Hives 04/05/2015 Sulfate Ion Hives Medium 03/14/2017 Medications Medication Sig Dispensed Refills Start Date End Date Status multivitamin (MULTIPLE VITAMINS ORAL) Take 1 tablet by mouth 1 (one) time each day. 03/20/2024 Active polyethylene glycol (MIRALAX) 17 gram packet Take 17 g by mouth 1 (one) time each day. 05/10/2021 Active ubrogepant (Ubrelvy) 100 mg tablet 02/25/2024 Active acetaminophen (TYLENOL) 500 mg tablet Take 2 tablets (1,000 mg total) by mouth 3 (three) times a day. Active acetaminophen (TYLENOL 8 HOUR) 650 mg 8 hr tablet Take 1 tablet (650 mg total) by mouth every 8 (eight) hours if needed. Active clotrimazole (LOTRIMIN) 1 % cream Apply to skin and toenails daily for 12 weeks 03/26/2024 Active cyclobenzaprine (FLEXERIL) 10 mg tablet Take 1 tablet (10 mg total) by mouth 2 (two) times a day. 07/02/2024 Active diclofenac (VOLTAREN) 1 % topical gel Apply 4 g topically 2 (two) times a day. 02/21/2022 Active gabapentin (NEURONTIN) 300 mg capsule Take 1 capsule (300 mg total) by mouth 3 (three) times a day. 04/02/2024 Active galcanezumab-gnl m (Emgality Pen) 120 mg/mL injection pen Inject under the skin. Active ketoconazole (NIZORAL) 2 % shampoo USE ONCE DAILY A FACE WASH Active nystatin (MYCOSTATIN) ointment Apply topically to affected areas twice a day for 10 days 05/12/2024 Active onabotulinumtoxi nA (Botox) 200 unit injection Active ondansetron (ZOFRAN) 4 mg tablet Take 1 tablet (4 mg total) by mouth every 8 (eight) hours if needed for nausea. 05/01/2022 Active oxyBUTYnin XL (DITROPAN-XL) 10 mg 24 hr tablet Take 1 tablet (10 mg total) by mouth 1 (one) time each day. for 360 days 03/26/2024 5 Active traMADoL (ULTRAM) 50 mg tablet Take 1 tablet (50 mg total) by mouth every 6 (six) hours if needed for moderate pain or severe pain. 04/16/2024 Active back brace miscIndications: S/P lumbar fusion LSO brace. Use when ambulating and for comfort Status post lumbar fusion Length of use: 99 1 each 09/18/2024 Active metoprolol tartrate (LOPRESSOR) 50 mg tablet Take 1 tablet (50 mg total) by mouth 2 (two) times a day. 180 tablet 3 09/24/2024 Active lisinopriL (PRINIVIL,ZESTRI L) 30 mg tablet Take 1 tablet (30 mg total) by mouth 1 (one) time each day. 90 tablet 2 09/24/2024 Active hydroCHLOROthiaz farrah 12.5 mg tablet Take 1 tablet (12.5 mg total) by mouth 1 (one) time each day. 30 each 5 09/24/2024 5 Active atorvastatin (LIPITOR) 10 mg tablet Take 1 tablet (10 mg total) by mouth 1 (one) time each day. 90 tablet 2 09/24/2024 Active celecoxib (CeleBREX) 200 mg capsuleIndicatio ns:Presence of left artificial knee joint TAKE 1 CAPSULE BY MOUTH TWICE A DAY NEEDED FOR PAIN WITH FOOD AND STAY HYDRATED 56 capsule 3 09/28/2024 Active omeprazole (PriLOSEC) [address] capsule TAKE 1 CAPSULE BY MOUTH EVERY DAY 30 capsule 2 10/22/2024 Active Daily-Michelle, with folic acid, 400 mcg tablet TAKE 1 TABLET BY MOUTH EVERY DAY 30 tablet 2 10/22/2024 Active thiamine 100 mg tablet TAKE 2 AND 1/2 TABS BY MOUTH EVERY DAY 70 tablet 2 10/22/2024 Active Vitamin B-6 250 mg tablet TAKE 1 TABLET BY MOUTH EVERY DAY 30 tablet 2 10/22/2024 Active melatonin 3 mg tablet TAKE 1 TABLET BY MOUTH EVERYDAY AT BEDTIME 28 tablet 2 10/22/2024 Active traZODone (DESYREL) 50 mg tablet TAKE 1 TABLET BY MOUTH EVERYDAY AT BEDTIME 90 tablet 1 11/19/2024 Active cholecalciferol (VITAMIN D-3) 50 mcg (2,000 unit) capsule TAKE 1 CAPSULE BY MOUTH EVERY DAY 90 capsule 3 11/19/2024 Active sertraline (ZOLOFT) 100 mg tablet TAKE 1 TABLET BY MOUTH EVERY DAY 84 tablet 2 11/19/2024 Active cholecalciferol (VITAMIN D-3) 50 mcg (2,000 unit) capsule Take 1 capsule (2,000 Units total) by mouth 1 (one) time each day. 11/12/2023 5 Discontinued sertraline (ZOLOFT) 100 mg tablet Take 1 tablet (100 mg total) by mouth 1 (one) time each day. 11/12/2023 5 Discontinued traZODone (DESYREL) 50 mg tablet Take 1 tablet (50 mg total) by mouth at bedtime. 05/14/2024 5 Discontinued amoxicillin (AMOXIL) 500 mg capsule Take 4 capsules (2,000 mg total) by mouth 1 (one) time for 1 dose. Take 1 hour prior to procedure. 4 each 11/08/2024 5 Active Problems Problem Noted Date Diagnosed Date Status post total left knee replacement 10/06/20 24 S/P lumbar fusion 10/06/2024 Acute bilateral low back pain without sciatica 1 12/07/2023 Other muscle spasm 10/06/2024 Diarrhea 08/07/2024 Epigastric pain 08/07/2024 Nausea and vomiting 08/07/2024 Primary osteoarthritis of left knee 02/19/2023 Neck pain 02/14/2023 Overview (08/07/2024): Last Assessment & Plan: Ms. Sung has a remote history of C6-7 anterior cervical discectomy and fusion with Dr. Webb. She was last seen in our office in 2019. At that time she had similar complaints of neck pain with headaches, pain in the shoulders, elbows, with numbness in the fingers. None of this seems dermatomal. I reviewed her MRI with Dr. Juan who once again said that there was nothing surgical to offer. We talked about acupuncture, yoga, physical therapy, NSAIDs, and cervical traction all as reasonable conservative modalities. The patiently basically said that she had tried all of these things and none of them really worked. She did get some relief with Neurontin but has run out and will request a refill from her prescriber. She is welcome to follow- up with us in the future on an as-needed basis. 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 01/09/2022 Brachial radiculitis 10/10/2021 Cervical post-laminectomy syndrome 10/10/2021 Degeneration of cervical intervertebral disc Displacement of lumbar inter vertebral disc without myelopathy 10/10/2021 Lumbosacral radiculitis 10/10/2021 Occipital headache 10/10/2021 Primary osteoarthritis of both first carpometaca rpal joints 05/16/2021 Chest pain 05/03/2021 Overview (08/07/2024): Chest pain Diastolic hypertension 05/03/2021 Overview (08/07/2024): Diastolic hypertension Post-thrombotic syndrome 04/05/2019 DVT (deep venous thrombosis) 04/01/2019 Overview (08/07/2024): 02/2019 on Xarelto Chronic back pain 07/04/2018 Degenerative joint disease of cervical spine Urinary incontinence 07/04/2018 Lumbar degenerative disc disease 01/30/2018 Overview (08/07/2024): Last Assessment & Plan: Ms. Sung is about 12 days status post L3-4 DLIF with anterior spinal [place] [facility] This the surgery, she has been a patient in rehab at [address] [place] [address]. While there, she is participating in physical therapy. She denies any significant improvement from her preoperative symptoms. She is neurologically intact. Her incision is healing nicely. There were no signs or symptoms of infection. We talked about postoperative course, timeframe, and nerve healing. She agreed to be patient. She will follow- up with Dr. Hayward for her regularly scheduled second postop visit. Primary osteoarthritis of both knees 01/30/2018 Sleep apnea 01/30/2018 Overview (08/07/2024): On CPAP started 2016 Hyperlipidemia 12/07/2017 Breast microcalcification, mammographic 10/21/19 Essential hypertension 03/14/2017 GERD (gastroesophageal reflux disease) 6 Depression with anxiety 01/12/2016 Insomnia 06/09/2015 Vitamin D deficiency 02/15/2015 Encounters Date Type Department Care Team Description 10/06/2024 1:00 PM EST Evaluation [facility] [address] [place] [address] Soha Mckeon, PT Acute bilateral low back pain without sciatica (Primary Dx); S/P lumbar fusion; Other muscle spasm 10/06/2024 11:30 AM EST Office Visit Orthopedic [facility] - [place] [address] [place] [address] [place] [phone] Brian Ferrari MD Post-operative state (Primary Dx); Status post total left knee replacement; Thigh numbness; Gait instability; Weakness of left hip 10/06/2024 Plan of Care Documentation [facility] [address] [place] [address] 09/29/2024 Telephone Orthopedic Surgery [facility] [address] [facility] [address] [place] [phone] Aida White PA Med Refill 09/25/2024 1:00 PM EST Nutrition Internal Medicine - [place] [address] [facility] [address] [place] [phone] Obesity (BMI 30-39.9) (Primary Dx) 09/25/2024 Telephone [facility] 154 [address] [facility] 154 [place] [phone] Ralf Gastelum MD Appointment 09/24/2024 1:00 PM EST Office Visit Internal Medicine [facility] 175 [facility] [address] [place] [phone] Michael Lawrence MD Hearing difficulty of both ears (Primary Dx); Essential hypertension 09/24/2024 11:45 AM EST Office Visit Orthopedic Surgery [facility] [address] [facility] [address] [place] [phone] Aida White PA Chronic pain of both shoulders (Primary Dx); Nontraumatic incomplete tear of right rotator cuff; Arthritis of right glenohumeral joint; Tendinitis of left rotator cuff 09/18/2024 1:30 PM EST Office Visit Neurosurgery [facility] [address] [place] [phone] Nathan Hayward MD S/P lumbar fusion (Primary Dx) 09/16/2024 Telephone Neurosurgery [facility] [address] [place] [address] Nathan Hayward MD Numbness; Hip Pain; Back Pain 09/15/2024 4:03 PM EST - 09/15/2024 11:59 PM EST Hospital Encounter [facility] [address] [address] S/P lumbar fusion Discharge Disposition: Home or Self Care from Last 3 Months Immunizations Name Administration Dates Next Due Hepatitis B (Przzver-K-Wjdhr , Recombivax HB-Adult) 19yo and older 10/27/2019,05/26/2019,04/22/2019 Influenza Quadravalent, MDCK , 0.5ml, preservative free (Flucelvax) 6mo and older 07/22/2020,07/09/2019,11/15/2017 Influenza trivalent, 0.5mL, preservative free (Fluarix; FluLaval; Fluzone) ages 6mo and older (Afluria) 3 years and older 08/20/2022,07/21/2021,07/05/2018 Moderna SARS-CoV-2 COVID-19, mRNA, LNP-S, preservative free 03/22/2021,02/17/2021 Surgical History Surgery Date Site/Laterality Comments TOTAL KNEE ARTHROPLASTY 03/03/2024 Bilateral PROCEDURE:TOTAL KNEE ARTHROPLASTY;COMMENT:LEFT TKA; RIGHT TKA MARCH 2019 HAND SURGERY 2021 Bilateral PROCEDURE:HAND SURGERY;COMMENT:thumb surery with plates and pins BACK SURGERY 2007 PROCEDURE:BACK SURGERY;COMMENT:c-spine BACK SURGERY 2018 PROCEDURE:BACK SURGERY;COMMENT:lumbar LUMBAR FUSION 07/16/2024 N/A PROCEDURE:LUMBAR FUSION;COMMENT:Procedure: L3-4 FUSION SPINE LUMBAR - DLIF 1 INTERSPACE; Surgeon: Nathan Hayward MD; Location: [facility] Service: Spine; Laterality: N/A; NECK SURGERY 2007 PROCEDURE: HISTORICAL NECK SURGERY; COMMENT: C-spine; arthrodesis HAND SURGERY 1989 Bilateral PROCEDURE: HISTORICAL HAND SURGERY; COMMENT: right tendo repair; left thumb x2; region with pins in place TUBAL LIGATION 2007 PROCEDURE: HISTORICAL TUBAL LIGATION OTHER SURGICAL HISTORY 09/2017 PROCEDURE: PA ARTHRD ANT INTERBODY MIN DSC LUMBAR COLONOSCOPY 2017 PROCEDURE: HISTORICAL COLONOSCOPY TOTAL KNEE ARTHROPLASTY 02/03/2019 Right PROCEDURE: HISTORICAL TOTAL KNEE REPLACE BREAST BIOPSY 10/08/2013 PROCEDURE: PA BX BREAST NEEDLE CORE W/O IMAGING GUIDANCE SPX; COMMENT: in [place],no evidence of malignancy OTHER SURGICAL HISTORY 1997 PROCEDURE: LAPAROSCOPY PROCEDURE NEC; COMMENT: for scar tissue Medical History Medical History Date Comments Pleural effusion DX:Pleural effu lety;COMMENT:WAS TOLD SHE HAD FLUID IN BOTTOM OF LUNGS, NEVER HAD THORACENTESIS. GERD (gastroesophageal reflu x disease) DX:GERD (gastroesophageal re flux disease) Osteoarthritis DX:Osteoarthriti s Hypertension DX:Hypertension Sleep apnea DX:Sleep apnea Sleep apnea, obstructive DX:Slee p apnea, obstructive Urinary incontinence DX:Urinary incontinence Urinary urgency DX:Urinary urgen cy Migraine headache DX:Migraine he adache Dizziness DX:Dizziness Peripheral neuropathy DX:Periphe ral neuropathy;COMMENT:shoulders mega hands from her c spine Anxiety DX:Anxiety Depression DX:Depression Rash DX:Rash;COMMENT: under breast and belly Deep vein thrombosis (CMS/HCC) D X:Deep vein thrombosis ([facility]);COMMENT:right knee after surgery Sleep apnea 01/30/2018 DX:Sleep apnea Breast microcalcification, mammographic 2017 DX:Breast microcalcification , mammographic Chronic back pain 07/04/2018 DX:Chronic dimitry k pain Degenerative joint disease o f cervical spine 07/04/2018 DX:Degenerative joint diseas e of cervical spine Depression with anxiety 01/12/2016 DX:Depre ssion with anxiety Essential hypertension 03/14/2017 DX:Essent ial hypertension GERD (gastroesophageal reflu x disease) 09/05/2016 DX:GERD (gastroesophageal re flux disease) Hyperlipidemia 12/07/2017 DX:Hyperlipidemi a Insomnia 06/09/2015 DX:Insomnia Lumbar degenerative disc disease 01/30/2018 DX:Lumbar degenerative disc disease Primary osteoarthritis of both knees 01/30/2018 DX:Primary osteoarthritis of both knees Urinary incontinence 07/04/2018 DX:Urinary incontinence Vitamin D deficiency 02/15/2015 DX:Vitamin D deficiency FH: breast cancer in first d egree relative when <50 years old 04/01/2019 DX:FH: breast cancer in fi rst degree relative when <50 years old; COMMENT: Mother, 30's, then 40's, maternal aunt 30's, then 40's; 04/2017 genetic testing negative History of total right knee replacement 04/01/2019 DX:History of total right kn ee replacement; COMMENT: 01/2019 DVT (deep venous thrombosis) ([facility]) 04/01/2019 DX:DVT (deep venous thrombos is) ([facility]); COMMENT: 02/2019 on Xarelto Epigastric pain DX:Epigastric pa in Nausea and vomiting DX:Nausea an d vomiting Diarrhea DX:Diarrhea Family History Medical History Relation Name Comments Breast cancer Aunt maternal mat aunt ting breaux ca 30s and again 40s Arthritis Father Drug abuse Father Kidney disease Father Arthritis Mother Breast cancer Mother mother breast ca in her 30s and again in her 40s COPD Mother Cancer Mother breast in 30s a nd 40s Diabetes Mother 04/2023 ESRD Mother Hypertension Mother Kidney disease Mother Kidney failure Mother Cancer Mother's Sister breast Breast cancer Other cousin Relation Name Status Comments Aunt maternal in her 30 and e marco 40. Father Mother Mother's Sister Other cousin Alive Social History Tobacco Use Types Packs/Day Years Used Date Smoking Tobacco: Never Smokeless Tobacco: Never Tobacco Cessation:Counseling Given: Not Answered Alcohol Use Standard Drinks/Week Comments Yes 6 (1 standard drink = 0.6 oz pur e alcohol) Sex and Gender Information Value Date Recorded Sex Assigned at Female 08/24/2024 4:29 PM EST Gender Identity Female 08/24/2024 4:29 PM EST Sexual Orientation Straight 08/24/2024 4: 43 PM EST Job Start Date Occupation Industry Not on file Not on file Not on file Obstetrics History Last Filed Vital Signs Vital Sign Reading Time Taken Comments Blood Pressure 158/96 09/24/2024 1:36 PM EST Pulse 98 09/24/2024 1:36 PM EST Temperature 37.1 ??C (98.7 ??F) 09/24/2024 1:36 PM ES T Respiratory Rate - - Oxygen Saturation 97% 09/24/2024 1:36 PM EST Inhaled Oxygen Concentration - - Weight 95.3 kg (210 lb) 09/25/2024 2:17 PM EST Height 162.6 cm (5' 4 ) 09/24/2024 1:36 PM EST Body Mass Index 36.05 09/24/2024 1:36 PM EST Plan of Treatment Upcoming Encounters Date Type Department Care Team (Late st Contact Info) Description 12/29/2024 3:00 PM EDT Office Visit Internal Medicine - [place] [address] [facility] [address] [place] [phone] Michael Lawrence MD 175 [facility] 200 [place] [address] 12/30/2024 3:00 PM EDT Office Visit Orthopedic Surgery - [place] [address] [facility] [address] [place] [phone] Aida White PA 175 [facility] 160 [place] [address] 02/09/2025 2:30 PM EDT Office Visit [facility] [address] [facility] 154 [place] [phone] Ralf Gastelum MD [address] [place] [address] 03/03/2025 3:30 PM EDT Office Visit Orthopedic Surgery [facility] [address] [phone] Brian Ferrari MD [address] [address] 03/04/2025 3:30 PM EDT Office Visit Orthopedic Surgery [facility] [address] [phone] Brian Ferrari MD [address] [address] Health Maintenance Due Date Last Done Comments DTaP,Tdap,and Td Vaccines (1 - Tdap) 1986 Zoster Vaccines (1 of 2) 2017 Medicare Annual Wellness Visit 09/29/2022 Social Influencers of Health Screening 09/29/2022 COVID-19 Vaccine ( season) 2024 08/20/2022, 02/27/2022, 09/22/2021, Additional history exists Influenza Vaccine (#1) 2024 , 07/21/2021, 07/22/2020, Additional history exists Depression Screening 05/11/2025 05/11/2024 Hypertension/CHF/CAD Annual BMP Blood Test 07/19/2025 07/19/2024, 07/19/2024, 07/02/2024, Additional history exists Breast Cancer Screening 10/29/2025 10/29/19 24, 09/28/2022, 09/07/2020, Additional history exists Cervical Cancer Screening: HPV 07/13/2026 07/13/2021 Colorectal Cancer Screening: Colonoscopy 03/24/2028 03/24/2018 Cholesterol Screening (Lipid Panel) 12/09/2028 12/09/2023 Pneumococcal Vaccine: Pediatrics (0 to 5 Years) and At-Risk Patients (6 to 64 Years) Aged Out 02/05/2008 No longer eligible based on patient's age to complete this topic Hepatitis B Vaccines Completed 10/27/2019, 05/26/2019, 04/22/2019 HIV Screening Completed 08/05/2023 Hepatitis C Screening Completed 08/05/2023 HIB Vaccines Aged Out No longer eligi ble based on patient's age to complete this topic HPV Vaccines Aged Out No longer eligi ble based on patient's age to complete this topic Hepatitis A Vaccines Aged Out No long er eligible based on patient's age to complete this topic IPV Vaccines Aged Out No longer eligi ble based on patient's age to complete this topic MMR Vaccines Aged Out No longer eligi ble based on patient's age to complete this topic Meningococcal ACWY Vaccine Aged Out N o longer eligible based on patient's age to complete this topic RSV Immunization Patients Under 20 months Aged Out No longer eligible based on patient's age to complete this topic Varicella Vaccines Aged Out No longer eligible based on patient's age to complete this topic Medical Devices Implanted Type Area Neon Sign Maker Device Identifier Shelf Expiration Date Model / Serial / Lot Putty Vesuvius 100 5ml Stry-K2m [id number] Implanted:Qty: 1 on 07/16/2024 by Nathan Hayward MD N/A: Spine Lumbar LAXMI SPINE 02/17/2027 [id number] / [id number] / Bone Graft Spine Infus Xsm Medt-Sofa [id number] Implanted:Qty: 1 on 07/16/2024 by Nathan Hayward MD N/A: Spine Lumbar [employer] SOFAMOR DANEK 11/20/2025 [id number] / / [id number] Dunlap Interbody System Implanted:Qty: 1 on 07/16/2024 by Nathan Hayward MD N/A: Spine Lumbar LAXMI - MEDICAL 10/30/2028 [id number] / / [id number] Plate [facility] 2hl 18mm Stry-K2m [id number] Implanted:Qty: 1 on 07/16/2024 by Nathan Hayward MD N/A: Spine Lumbar LAXMI SPINE [id number] / / 5.0x40mm Screw Implanted:Qty: 2 on 07/16/2024 by Nathan Hayward MD N/A: Spine Lumbar LAXMI - MEDICAL [id number] / / Plate Assembly Screw Implanted:Qty: 1 on 07/16/2024 by Nathan Hayward MD N/A: Spine Lumbar LAXMI - MEDICAL [id number] / / Procedures Procedure Name Priority Date/Time Associated Diagnosis Comments XR KNEE 3 VIEWS LEFT Routine 10/06/2024 11:25 AM EST Post-operative state Status post total left knee replacement XR LUMBAR SPINE 4+ VIEWS Routine 09/15/2024 4:49 PM EST S/P lumbar fusion DEPRESSION SCREENING Routine 05/11/2024 ANNUAL BMP BLOOD TEST Routine 02/06/2024 LIPID PANEL Routine 12/09/2023 BACILIO SCREENING DIGITAL Routine 10/29/2023 4:40 PM EST Encounter for screening mammogram for malignant neoplasm of breast HEPATITIS C SCREENING Routine 08/05/2023 HIV SCREENING Routine 08/05/2023 HPV Routine 07/13/2021 COLONOSCOPY Routine 03/24/2018 from Last 3 Months or Most Recently Relevant to Health Maintenance Results * XR Knee 3 Views Left (10/06/2024 11:25 AM EST) Anatomical Region Laterality Modality Lower Extremities, Knee Left Computed Radiography Narrative 10/09/2024 10:39 AM EST 3 views of the left knee obtained today including AP, lateral, sunrise were reviewed. These show left cemented posterior stabilized total knee replacement with patellar resurfacing. Implants appear well-fixed and well-positioned. No significant changes when compared to prior x-rays obtained 06/03/2024. Brian Ferrari MD IMG XR PROCED URES * XR Lumbar Spine 4+ Views (09/15/2024 4:49 PM EST) Anatomical Region Laterality Modality Spine, L-spine Radiographic Addie ging 09/15/2024 4:5 4 PM EST Impressions 09/15/2024 5:01 PM EST Intact spinal fusion of the L3-4 and L4-5 levels. No dynamic instability. Report reviewed and signed by : Dr. Harley Le on 09/15/2024 5:01 PM. Workstation Name - [id number] -------- FINAL REPORT -------- Dictated By: Harley Le Dictated Date: 09/15/2024 16:54 ET Assigned Physician: Harley Le Reviewed and Electronically Signed By: Harley Le Signed Date: 09/15/2024 17:01 ET Workstation ID: [id number] Transcribed By: Self Edit Transcribed Date: 09/15/2024 16:54 ET Narrative 09/15/2024 5:01 PM EST Study: Radiographs of the lumbar spine HISTORY: Surgical follow-up TECHNIQUE: AP, lateral and lateral flexion and extension views of the lumbar spine: COMPARISON: Radiographs of the lumbar spine performed on 07/17/2024 FINDINGS: Osteoporosis is seen. A dextroscoliosis is noted. No acute lumbar compression fracture is seen. Degenerative disc disease of the lower thoracic and lumbar spine can be seen. There is an anterior fusion of the L3-4 level from a left-sided approach. A well-positioned L3-4 cage disc spacer is noted. There is a posterior fusion of the L4-5 level with bilateral L4 and bilateral L5 pedicle screws. No hardware migration or loosening can be seen. At L4-5 bone-graft intervertebral disc spacer is present. No pseudoarthrosis is seen. No dynamic instability is seen. There is a transitional lumbosacral junction with bilateral pseudoarthroses to the sacrum There is no significant interval change in appearance of the lumbar spine when compared to the prior radiographs that were performed on 07/17/2024 Procedure Note Harley Le MD - 09/15/2024 Study: Radiographs of the lumbar spine HISTORY: Surgical follow-up TECHNIQUE: AP, lateral and lateral flexion and extension views of thelumbar spine: COMPARISON: Radiographs of the lumbar spine performed on 07/17/2024 FINDINGS: Osteoporosis is seen. A dextroscoliosis is noted. No acutelumbar compression fracture is seen. Degenerative disc disease of thelower thoracic and lumbar spine can be seen. There is an anterior fusionof the L3-4 level from a left-sided approach. A well-positioned L3-4 cagedisc spacer is noted. There is a posterior fusion of the L4-5 level withbilateral L4 and bilateral L5 pedicle screws. No hardware migration orloosening can be seen. At L4-5 bone-graft intervertebral disc spacer ispresent. No pseudoarthrosis is seen. No dynamic instability is seen. There is a transitional lumbosacral junction with bilateralpseudoarthroses to the sacrum There is no significant interval change in appearance of the lumbar spinewhen compared to the prior radiographs that were performed on 07/17/2024 IMPRESSION: Intact spinal fusion of the L3-4 and L4-5 levels. No dynamicinstability. Report reviewed and signed by : Dr. Harley Le on 09/15/2024 5:01PM. Workstation Name - [id number] -------- FINAL REPORT -------- Dictated By: Harley Le Dictated Date: 09/15/2024 16:54 ET Assigned Physician: Harley Le Reviewed and Electronically Signed By: Harley Le Signed Date: 09/15/2024 17:01 ET Workstation ID: [id number] Transcribed By: Self Edit Transcribed Date: 09/15/2024 16:54 ET Chloe Geiger MANAGER HVAC IMG XR PROCEDURES * Depression Screening (05/11/2024) Pathologist [facility] Depression Screening Abstracted Historical Provider [facility] E * Annual BMP Blood Test (02/06/2024) Pathologist [facility] Annual BMP Blood Test Abstracted Historical Provider [facility] E * (ABNORMAL) Lipid panel (12/09/2023) [facility] LDL/HDL Ratio 5(A) 0 - 4 Triglycerides 143 0 - 150 mg/dL Cholesterol 199 0 - 200 mg/dL HDL 41 40 mg/dL LDL Cholesterol 130(A) 0 - 100 mg/dL Blood Venous blood specimen / Unknown Historical Provider LAB BLOOD ORDERAB LES * BACILIO SCREENING DIGITAL (10/29/2023 4:40 PM EST) Anatomical Region Laterality Modality Mammography 10/29/2023 3:10 PM EST Narrative 10/29/2023 4:40 PM EST Diagnostic Imaging Department [address] [place] [address] Patient: ??JOSH SUNG ?/Age/Sex: 1965 - 58 - F Unit#: ??[id number] ? Location/Status: ??SPDIMAM/PRE CLI ? Mnemonic/Ordering Site: ??DIGSC/SPMAM Ordering Physician: ??MICHAEL LAWRENCE MD [facility] Screening Digital - 10/29/23 - 1623 Report Status:Signed EXAM: [facility] Screening Digital EXAM DATE AND TIME: 10/29/2023 4:24 PM HISTORY: ??Screening. Previous left breast biopsies, most recently in 2020, pathology benign. Mother had breast carcinoma at age 40. COMPARISON: ??09/27/22, 10/05/20, 09/07/20, 05/11/19 TECHNIQUE: Bilateral digital breast tomosynthesis was performed in the CC and MLO projections. Computer aided detection with Genalyte 3D 3.1 was employed. TISSUE DENSITY: a. The breasts are almost entirely fatty. FINDINGS: No suspicious masses, grouped microcalcifications, or areas of architectural distortion are seen. Benign rim calcifications are again seen. Multiple biopsy markers are present in the left breast. The skin and vascularity are unremarkable. IMPRESSION: Stable mammographic appearance of the breasts. ??No evidence of malignancy is seen. A negative mammogram in the presence of a clinically suspicious palpable abnormality does not preclude the possibility of malignancy or alter the indications for biopsy. BI-RADS: ??Category 2: Benign RECOMMENDATION(S): 1: Routine screening mammogram BILATERAL in 1 year. Dictating Physician: ??ESTER CHACKO MD Electronically Signed by: ??ESTER CHACKO MD Dic Date/Time: ??10/29/23 1639 Sign date/Time: ??10/29/23 1640 Procedure Note Ester Chacko MD - 06/08/2024 Diagnostic Imaging Department [address] [place] [address] Patient: JOSH SUNG.O.B./Age/Sex: 1965 - 58 - F Unit#: [id number] Location/Status: SPDIMAM/PRE CLI Mnemonic/Ordering Site: [facility] Ordering Physician: MICHAEL LAWRENCE MD [facility] Screening Digital - 10/29/23 - 1623 Report Status:Signed EXAM: [facility] Screening Digital EXAM DATE AND TIME: 10/29/2023 4:24 PM HISTORY: Screening. Previous left breast biopsies, most recently [id number], pathology benign. Mother had breast carcinoma at age 40. COMPARISON: 09/27/22, 10/05/20, 09/07/20, 05/11/19 TECHNIQUE: Bilateral digital breast tomosynthesis was performed in the CCand MLO projections. Computer aided detection with Genalyte 3D 3.1was employed. TISSUE DENSITY: a. The breasts are almost entirely fatty. FINDINGS: No suspicious masses, grouped microcalcifications, or areas ofarchitectural distortion are seen. Benign rim calcifications are again seen. Multiplebiopsy markers are present in the left breast. The skin and vascularity are unremarkable. IMPRESSION: Stable mammographic appearance of the breasts. No evidence of malignancyis seen. A negative mammogram in the presence of a clinically suspicious palpable abnormality does not preclude the possibility of malignancy or alter the indications for biopsy. BI-RADS: Category 2: Benign RECOMMENDATION(S): 1: Routine screening mammogram BILATERAL in 1 year. Dictating Physician: ESTER CHACKO MD Electronically Signed by: ESTER CHACKO MD Dic Date/Time: 10/29/23 1639 Sign date/Time: 10/29/23 1640 Michael Lawrence MD IMG BI PROCEDURES * Hm HIV Screening (08/05/2023) HIV Screening Abstracted Historical Provider [facility] * Hepatitis C Screening (08/05/2023) Hepatitis C Screening Abstracted Historical Provider [facility] * Cervical Cancer Screening: HPV (07/13/2021) Cervical Cancer Screening: HPV Negative, abstracted Historical Provider [facility] * Colonoscopy (03/24/2018) Colonoscopy No interpretation , abstracted Comment:External Completion of test per patient (Patient reports normal results) Anatomical Region Laterality Modality Other Historical Provider MD [facility] from Last 3 Months or Most Recently Relevant to Health Maintenance Advance Directives Documents on File Type Date Recorded Patient Processing Analyst Expl anation Health Care Decision (hx) 03/05/2024 AD LAM DIRECTIVE Health Care Decision (hx) 03/05/2024 AD LAM DIRECTIVE Health Care Decision (hx) 03/05/2024 AD LAM DIRECTIVE Health Care Decision (hx) 03/05/2024 AD LAM DIRECTIVE Health Care Decision (hx) 02/13/2024 HE ALTH CARE PROXY Care Teams Senior Behavioral Scientist Relationship Specialty Start Date End Date Michael Lawrence MD [address] [place] [phone] PCP - General Internal Medicine 09/24/16
--- OUTSIDE RECORDS SUMMARY | 2024-11-23 13:37 | XMS_ITS | Encounter Summary ---
Author Organization [facility] Address [address] [place] [address] Care Team Providers Care Cribbing Setter Name Role Phone Mily Lawrence MD Primary Care Provider [phone] Ralf Gastelum MD Unavailable [phone] Gretchen Juan MD Unavailable [phone] Katherine Snow PA-C Unavailable [phone] Per Leahy PA-C Unavailable [phone] Reason for Visit * Reason Comments E-prescribe Rx Request Encounter Details Date Type Department Care Team Description [facility]/11/[facility] - [address], [address] [place] [address] Mily Lawrence MD [address] [place] [phone] E-prescribe Rx Request Social History Tobacco [...] * Telephone Encounter - Helen Henson - 11/11/2019 12:52 PM EST Patient would like script to be: E-PRESCRIBED/FAXED TO PHARMACY WHEN WAS THE PATIENT'S LAST APPOINTMENT IN ADULT MEDICINE? 10/27/2019 WHEN WAS THE LAST TIME THE PATIENT SAW THEIR PCP? Same as above Does patient have an upcoming appointment? Yes 03/03/2020 (THE MEDICATION REQUESTED IS ON THE MED [...] N/A Patients current insurance carrier is: Payor: [employer] / Plan: [employer] / Product Type: MEDICAID RISK documented in this encounter Plan of Treatment Not on file documented as of this encounter Visit Diagnoses Diagnosis Chronic bilateral low back pain without sciatica- Primary documented in this encounter Care Teams Cribbing Setter Relationship Specialty Start Date End Date Mily Lawrence MD PCP - General Internal Medicine 03/09/19 Ralf Gastelum MD [address] [place], [place] [address] [address] Specialist Cardiovascular Disease 06/08/22 Gretchen Juan MD 175 [facility] 300 [place] [address] Surgeon Neurosurgery 02/13/23 Katherine Snow PA-C [address] [address] Specialist Neurosurgery 02/13/23 Per Leahy PA-C 175 [facility] 300 [place] [address] Specialist Neurosurgery 02/13/23 documented as of this encounter
--- OUTSIDE RECORDS SUMMARY | 2024-11-23 13:37 | XMS_ITS | Encounter Summary ---
Author Organization [facility] Address [address] [place] [address] Care Team Providers Care Ingot Car Operator Name Role Phone Mily Lawrence MD Primary Care Provider [phone] Reason for Visit * Reason Onset Date Comments Med Refill 09/29/2024 Encounter Details Date Type Department Care Team (Late st Contact Info) Description 09/29/2024 Telephone Orthopedic Surgery - [place] [address] [facility] [address] [place] [phone] Aida White PA 175 [facility] [address] [place] [address] Med Refill Social History Tobacco Use Types Packs/Day Years [...] on file documented as of this encounter Progress Notes * Marci Garrido - 09/29/2024 12:12 PM EST Pt is requesting a refill on Gabapentin [facility] documented in this encounter Plan of Treatment Upcoming Encounters Date Type Department Care Team (Late st Contact Info) Description 12/29/2024 3:00 PM EDT Office Visit Internal Medicine - [place] [address] [facility] [address] [place] [address] Mily Lawrence MD [address] [facility] [address] [place] [address] 12/30/2024 3:00 PM EDT Office Visit Orthopedic Surgery [facility] [address] [facility] 160 [place] [phone] Aida White PA [address] [facility] [facility] 160 [place] [address] 02/09/2025 2:30 PM EDT Office Visit [facility] [address] [facility] [address] [facility] 154 [place] [address] Ralf Gastelum MD [address] [place] [address] 03/03/2025 3:30 PM EDT Office Visit Orthopedic Surgery [facility] [address] [place] [phone] Brian Ferrari MD [address] [facility] [address] [place] [address] 03/04/2025 3:30 PM EDT Office Visit Orthopedic Surgery [facility] [address] [facility] [place] [address] Brian Ferrari MD [address] [facility] [address] [place] [address] documented as of this encounter Visit Diagnoses Not on filedocumented in this encounter Care Teams Ingot Car Operator Relationship Specialty Start Date End Date Mily Lawrence MD [address] [place] [phone] PCP - General Internal Medicine 09/24/16 documented as of this encounter
--- OUTSIDE RECORDS SUMMARY | 2024-11-23 13:37 | XMS_ITS | Encounter Summary ---
Author Organization [facility] Address [address] [place] [address] Care Team Providers Care Genomics Scientist Name Role Phone Trey Mueller MD Primary Care Provider Unavaila ble Mily Lawrence MD Primary Care Provider [phone] Ralf Gastelum MD Unavailable [phone] Gretchen Juan MD Unavailable [phone] Katherine Snow PA-C Unavailable [phone] Per Leahy PA-C Unavailable [phone] Encounter Details Date Type Department Care Team Description 02/05/2019 [facility] Medical Records [address] [place] [address] Abstract, Provider Social History Tobacco Use Types [...] on filedocumented in this encounter Care Teams Genomics Scientist Relationship Specialty Start Date End Date Trey Mueller MD PCP - General Internal Medicine 01/02/19 03/08/19 Mily Lawrence MD PCP - General Internal Medicine 03/09/19 Ralf Gastelum MD 300 [facility] [address] [place] [address] Specialist Cardiovascular Disease 06/08/22 Gretchen Juan MD 175 [facility] 300 [place] [address] Surgeon Neurosurgery 02/13/23 Katherine Snow PA-C 175 [facility] 300 [place] [address] Specialist Neurosurgery 02/13/23 Per Leahy PA-C 175 [facility] 300 [place] [address] Specialist Neurosurgery 02/13/23 documented as of this encounter
--- OUTSIDE RECORDS SUMMARY | 2024-11-23 13:37 | XMS_ITS | Encounter Summary ---
Author Organization [facility] Address [address] [place] [address] Care Team Providers Care Slurry Worker Name Role Phone Mily Lawrence MD Primary Care Provider [phone] Ralf Gastelum MD Unavailable [phone] Gretchen Juan MD Unavailable [phone] Katherine Snow PA-C Unavailable [phone] Per Leahy PA-C Unavailable [phone] Reason for Visit * Reason Comments E-prescribe Rx Request Encounter Details Date Type Department Care Team Description [facility] - [address] [place] [address] Alejandro Sibley MD [address] [place] [address] E-prescribe Rx Request Social History Tobacco Use [...] encounter Miscellaneous Notes * Telephone Encounter - Annie Gorman M.A. - 12/28/2019 3:52 PM EDT Refill sent to pcp * Telephone Encounter - Leonor Bautista - 12/28/2019 2:52 PM EDT Patient would like script to be: E-PRESCRIBED/FAXED TO PHARMACY WHEN WAS THE PATIENT'S LAST APPOINTMENT IN ADULT MEDICINE? 10/27/19 WHEN WAS THE LAST TIME THE PATIENT SAW THEIR PCP? Same as above Does patient have an upcoming appointment? Yes 03/03/20 (THE MEDICATION REQUESTED IS ON THE MED LIST ABOVE) All of the medications requested were on the CURRENT MEDS list Did you check the Pharmacy information above?: YES Patient wants: 30 -day supply Is this a mail order prescription request ? NO If the refill is from a FAXED refill request what is the RX # listed on the fax? N/A Patients current insurance carrier is: Payor: [employer] / Plan: [employer] / Product Type: MEDICAID RISK documented in this encounter Plan of Treatment Not on file documented as of this encounter Visit Diagnoses Not on filedocumented in this encounter Care Teams Slurry Worker Relationship Specialty Start Date End Date Mily Lawrence MD PCP - General Internal Medicine 03/09/19 Ralf Gastelum MD 300 [facility] [address] [place] [address] Specialist Cardiovascular Disease 06/08/22 Gretchen Juan MD [address] [facility] 300 [place] [address] Surgeon Neurosurgery 02/13/23 Katherine Snow PA-C 175 [facility] 300 [place] [address] Specialist Neurosurgery 02/13/23 Per Leahy PA-C 175 [facility] 300 [place] [address] Specialist Neurosurgery 02/13/23 documented as of this encounter
--- OUTSIDE RECORDS SUMMARY | 2024-11-23 13:37 | XMS_ITS | Encounter Summary ---
Author Organization [facility] Address [address] [place] [address] Care Team Providers Care Leather Belt Maker Name Role Phone Trey Mueller MD Primary Care Provider Unavaila ble Mily Lawrence MD Primary Care Provider [phone] aRlf Gastelum MD Unavailable [phone] Gretchen Juan MD Unavailable [phone] Katherine Snow PA-C Unavailable [phone] Per eLahy PA-C Unavailable [phone] Encounter Details Date Type Department Care Team Description 02/03/2019 Hospital Medical Records [address] [place] [address] Magdi Daniel MD [address] [place] [address] [place] [address] Social History Tobacco Use Types Packs/Day Years [...] on filedocumented in this encounter Care Teams Leather Belt Maker Relationship Specialty Start Date End Date Trey Mueller MD PCP - General Internal Medicine 01/02/19 03/08/19 Mily Lawrence MD PCP - General Internal Medicine 03/09/19 Ralf Gastelum MD 300 [facility] 154 [place] [address] Specialist Cardiovascular Disease 06/08/22 Gretchen Juan MD [address] [address] Surgeon Neurosurgery 02/13/23 Katherine Snow PA-C 175 [facility] 300 [place] [address] Specialist Neurosurgery 02/13/23 Per Leahy PA-C [address] [address] Specialist Neurosurgery 02/13/23 documented as of this encounter
--- OUTSIDE RECORDS SUMMARY | 2024-11-23 13:37 | XMS_ITS | Encounter Summary ---
Author Organization [facility] Address [address] [place] [address] Care Team Providers Care Steam Conditioning Operator Name Role Phone Trey Mueller MD Primary Care Provider Unavaila ble Mily Lawrence MD Primary Care Provider [phone] Ralf Gastelum MD Unavailable [phone] Gretchen Jaun MD Unavailable [phone] Katherine Snow PA-C Unavailable [phone] Per Leahy PA-C Unavailable [phone] Encounter Details Date Type Department Care Team Description 02/04/2019 [facility] Medical Records [address] [place] [id number] [place] [address] Social History Tobacco Use Types Packs/Day Years [...] on filedocumented in this encounter Care Teams Steam Conditioning Operator Relationship Specialty Start Date End Date Trey Mueller MD PCP - General Internal Medicine 01/02/19 03/08/19 Mily Lawrence MD PCP - General Internal Medicine 03/09/19 Ralf Gastelum MD 300 [facility] [address] [place] [address] Specialist Cardiovascular Disease 06/08/22 Gretchen Juan MD 175 [facility] 300 [place] [address] Surgeon Neurosurgery 02/13/23 Katherine Snow PA-C 175 [facility] 300 [place] [address] Specialist Neurosurgery 02/13/23 Per Leahy PA-C 175 [facility] 300 [place] [address] Specialist Neurosurgery 02/13/23 documented as of this encounter
--- OUTSIDE RECORDS SUMMARY | 2024-11-23 13:37 | XMS_ITS | Encounter Summary ---
Author Organization [facility] Address [address] [place] [address] Care Team Providers Care Discharge Coordinator Name Role Phone Trey Mueller MD Primary Care Provider Unavaila ble Mily Lawrence MD Primary Care Provider [phone] Ralf Gastelum MD Unavailable [phone] Gretchen Juan MD Unavailable [phone] Katherine Snow PA-C Unavailable [phone] Per Leahy PA-C Unavailable [phone] Encounter Details Date Type Department Care Team Description 02/01/2019 [facility] Medical Records [address] [place] [address] Evelio Smith Social History Tobacco Use Types [...] on filedocumented in this encounter Care Teams Discharge Coordinator Relationship Specialty Start Date End Date Trey Mueller MD PCP - General Internal Medicine 01/02/19 03/08/19 Mily Lawrence MD PCP - General Internal Medicine 03/09/19 Ralf Gastelum MD 300 [facility] [address] [place] [address] Specialist Cardiovascular Disease 06/08/22 Gretchen Juan MD 175 [facility] 300 [place] [address] Surgeon Neurosurgery 02/13/23 Katherine Snow PA-C 175 [facility] 300 [place] [address] Specialist Neurosurgery 02/13/23 Per Leahy PA-C 175 [facility] 300 [place] [address] Specialist Neurosurgery 02/13/23 documented as of this encounter
--- OUTSIDE RECORDS SUMMARY | 2024-11-23 13:37 | XMS_ITS | Encounter Summary ---
Author Organization [facility] Address [address] [place] [address] Care Team Providers Care Public Information Coordinator Name Role Phone Mily Lawrence MD Primary Care Provider [phone] Ralf Gastelum MD Unavailable [phone] Gretchen Juan MD Unavailable [phone] Katherine Snow PA-C Unavailable [phone] Per Leahy PA-C Unavailable [phone] Reason for Visit * Reason Comments E-prescribe Rx Request Encounter Details Date Type Department Care Team Description [facility] - [address] [place] [address] Mily Lawrence MD [address] [place] [phone] E-prescribe Rx Request Social History Tobacco [...] Telephone Encounter - Annie Gorman M.A. - 11/02/2019 4:14 PM EST Refil sent to pcpp BP Readings from Last 3 Encounters: 10/27/19 112/88 10/02/19 118/76 09/16/19 128/88 Lab Results Component Value Date NA 138 10/28/2019 K 3.6 10/28/2019 CO2 28 10/28/2019 CL 105 10/28/2019 BUN 16 10/28/2019 CREAT 0.90 10/28/2019 GLU 85 10/28/2019 CA 9.5 10/28/2019 GFR > 60 10/28/2019 * Telephone Encounter - Kyra Gleason - 11/02/2019 2:23 PM EST Patient would like script to [...] N/A Patients current insurance carrier is: Payor: [facility] [employer] FFS / Plan: [facility] [employer] / Product Type: MEDICAID RISK documented in this encounter Plan of Treatment Not on file documented as of this encounter Visit Diagnoses Not on filedocumented in this encounter Care Teams Public Information Coordinator Relationship Specialty Start Date End Date Mily Lawrence MD PCP - General Internal Medicine 03/09/19 Ralf Gastelum MD 300 [facility] [address] [place] [address] Specialist Cardiovascular Disease 06/08/22 Gretchen Juan MD 175 [facility] 300 [place] [address] Surgeon Neurosurgery 02/13/23 Katherine Snow PA-C 175 [facility] 300 [place] [address] Specialist Neurosurgery 02/13/23 Per Leahy PA-C 175 [facility] 300 [place] [address] Specialist Neurosurgery 02/13/23 documented as of this encounter
--- OUTSIDE RECORDS SUMMARY | 2024-11-23 13:37 | XMS_ITS | Encounter Summary ---
Author Organization [facility] Address [address] [place] [address] Care Team Providers Care Battalion Chief Name Role Phone Mily Lawrence MD Primary Care Provider [phone] Ralf Gastelum MD Unavailable [phone] Gretchen Juan MD Unavailable [phone] Katherine Snow PA-C Unavailable [phone] Per Leahy PA-C Unavailable [phone] Encounter Details Date Type Department Care Team Description 11/24/2019 [facility] Report Medical Records [address] [place] [address] Camilla Lopez MD Social History Tobacco Use Types Packs/Day Years [...] on filedocumented in this encounter Care Teams Battalion Chief Relationship Specialty Start Date End Date Mily Lawrence MD PCP - General Internal Medicine 03/09/19 Ralf Gastelum MD 300 [facility] [address] [place] [address] Specialist Cardiovascular Disease 06/08/22 Gretchen Juan MD 175 [facility] 300 [place] [address] Surgeon Neurosurgery 02/13/23 Katherine Snow PA-C 175 [facility] 300 [place] [address] Specialist Neurosurgery 02/13/23 Per Leahy PA-C 175 [facility] 300 [place] [address] Specialist Neurosurgery 02/13/23 documented as of this encounter
--- OUTSIDE RECORDS SUMMARY | 2024-11-23 13:37 | XMS_ITS | Encounter Summary ---
Author Organization [facility] Address [address] [place] [address] Care Team Providers Care Lathe Operator Contact Lens Name Role Phone Trey Mueller MD Primary Care Provider Unavaila Mily Mayen MD Primary Care Provider [phone] Ralf Gastelum MD Unavailable [phone] Gretchen Juan MD Unavailable [phone] Katherine Snow PA-C Unavailable [phone] Per Leahy PA-C Unavailable [phone] Encounter Details Date Type Department Care Team Description 02/12/2019 SNF discharge summary Medical Records [address] [place] [address] Abstract, Provider Social History Tobacco Use Types [...] on filedocumented in this encounter Care Teams Lathe Operator Contact Lens Relationship Specialty Start Date End Date Trey Mueller MD PCP - General Internal Medicine 01/02/19 03/08/19 Mily Lawrence MD PCP - General Internal Medicine 03/09/19 Ralf Gastelum MD 300 [facility] [address] [place] [address] Specialist Cardiovascular Disease 06/08/22 Gretchen Juan MD 175 [facility] 300 [place] [address] Surgeon Neurosurgery 02/13/23 Katherine Snow PA-C 175 [facility] 300 [place] [address] Specialist Neurosurgery 02/13/23 Per Leahy PA-C 175 [facility] 300 [place] [address] Specialist Neurosurgery 02/13/23 documented as of this encounter
--- OUTSIDE RECORDS SUMMARY | 2024-11-23 13:37 | XMS_ITS | Encounter Summary ---
Author Organization [facility] Address [address] [place] [address] Care Team Providers Care Manager School Name Role Phone Mily Lawrence MD Primary Care Provider [phone] Ralf Gastelum MD Unavailable [phone] Gretchen Juan MD Unavailable [phone] Katherine Snow PA-C Unavailable [phone] Per Leahy PA-C Unavailable [phone] Reason for Visit * Reason Comments E-prescribe Rx Request Encounter Details Date Type Department Care Team Description [facility] - [address], [address] [place] [address] Mily Lawrence MD [address] [place] [id number] E-prescribe Rx Request Social History Tobacco [...] encounter Miscellaneous Notes * Telephone Encounter - Paulina Henry L.P.N. - 02/01/2020 10:51 AM EDT Last vitamin D 12/11/2018 #28 * Telephone Encounter - Leonor Bautista - 02/01/2020 9:52 AM EDT Patient would like script to be: E-PRESCRIBED/FAXED TO PHARMACY WHEN WAS THE PATIENT'S LAST APPOINTMENT IN ADULT MEDICINE? 10/27/19 WHEN WAS THE LAST TIME THE PATIENT SAW THEIR PCP? Same as above Does patient have an upcoming appointment? Yes 02/17/20 (THE MEDICATION REQUESTED IS ON THE MED [...] N/A Patients current insurance carrier is: Payor: [employer] FFS / Plan[email or web address] / Product Type: MEDICAID RISK documented in this encounter Plan of Treatment Not on file documented as of this encounter Visit Diagnoses Not on filedocumented in this encounter Care Teams Manager School Relationship Specialty Start Date End Date Mily Lawrence MD PCP - General Internal Medicine 03/09/19 Ralf Gastelum MD 300 [facility] 154 [place] [address] Specialist Cardiovascular Disease 06/08/22 Gretchen Juan MD 175 [facility] 300 [place] [address] Surgeon Neurosurgery 02/13/23 Katherine Snow PA-C 175 [facility] 300 [place] [address] Specialist Neurosurgery 02/13/23 Per Leahy PA-C 175 [facility] 300 [place] [address] Specialist Neurosurgery 02/13/23 documented as of this encounter
--- OUTSIDE RECORDS SUMMARY | 2024-11-23 13:37 | XMS_ITS | Encounter Summary ---
Author Organization [facility] Address [address] [place] [address] Care Team Providers Care Cardiology Consultant Name Role Phone Mily Lawrence MD Primary Care Provider Ralf Gastelum MD Unavailable [phone] Gretchen Juan MD Unavailable [phone] Katherine Snow PA-C Unavailable [phone] Per Leahy PA-C Unavailable [phone] Reason for Visit * Reason Onset Date Comments medication problems 10/29/2019 Encounter Details Date Type Department Care Team Description 10/29/2019 Telephone Adult Medicine [address] [address] Mily Lawrence MD [address] [place] [phone] medication problems Social History Tobacco Use Types Packs/Day Years [...] Telephone Encounter - Annie Gorman M.A. - 10/30/2019 4:13 PM EST Spoke to patient she stated she will lower the cholesterol naturally. Then she goes from there. * Telephone Encounter - Annie Gorman M.A. - 10/30/2019 4:13 PM EST ----- Message from Mily Lawrence MD sent at 10/29/2019 5:46 AM EST ----- Cholesterol slightly high, ask her if she want to take small dose of statin * Telephone Encounter - Gwen Patiño - 10/29/2019 9:36 AM EST Pharmacy calling the medication for ciprofloxacin (CIPRO) 500 MG tablet Interact with another medication that she is using citalopram (CELEXA) 20 MG tablet Please advice documented in this encounter Plan of Treatment Not on file documented as of this encounter Visit Diagnoses Not on filedocumented in this encounter Care Teams Cardiology Consultant Relationship Specialty Start Date End Date Mily Lawrence MD PCP - General Internal Medicine 03/09/19 Ralf Gastelum MD 300 [facility] [address] [place] [address] Specialist Cardiovascular Disease 06/08/22 Gretchen Juan MD 175 [facility] 300 [place] [address] Surgeon Neurosurgery 02/13/23 Katherine Snow PA-C [address] [id number] Specialist Neurosurgery 02/13/23 Per Leahy PA-C [address] [address] Specialist Neurosurgery 02/13/23 documented as of this encounter
--- OUTSIDE RECORDS SUMMARY | 2024-11-23 13:37 | XMS_ITS | Encounter Summary ---
Author Organization [facility] Address [address] [place] [address] Care Team Providers Care Theater Technician Name Role Phone Mily Lawrence MD Primary Care Provider [phone] Ralf Gastelum MD Unavailable [phone] Gretchen Juan MD Unavailable [phone] Katherine Snow PA-C Unavailable [phone] Per Leahy PA-C Unavailable [phone] Reason for Visit * Reason Comments E-prescribe Rx Request Encounter Details Date Type Department Care Team Description [facility] - [address], [address] [place] [address] Mily Lawrence MD [address] [place] [phone] E-prescribe Rx Request Social History Tobacco [...] Telephone Encounter - Annie Gorman M.A. - 04/19/2020 10:42 AM EDT Lab Results Component Value Date NA 138 10/28/2019 K 3.6 10/28/2019 CO2 28 10/28/2019 CL 105 10/28/2019 BUN 16 10/28/2019 CREAT 0.90 10/28/2019 GLU 85 10/28/2019 ALB 4.1 10/28/2019 SGOT 21 10/28/2019 SGPT 28 10/28/2019 TBILI 0.7 10/28/2019 ALKPHOS 53 10/28/2019 TP 7.4 10/28/2019 CA 9.5 10/28/2019 GFR > 60 10/28/2019 * Telephone Encounter - Tatiana Shaw - 04/18/2020 3:55 PM EDT LOGAN 04/15/2020 NOV 04/27/2020 30 day supply. documented in this encounter Plan of Treatment Not on file documented as of this encounter Visit Diagnoses Not on filedocumented in this encounter Care Teams Theater Technician Relationship Specialty Start Date End Date Mily Lawrence MD PCP - General Internal Medicine 03/09/19 Ralf Gastelum MD 300 [facility] [address] [place] [address] Specialist Cardiovascular Disease 06/08/22 Gretchen Juan MD 175 [facility] 300 [place] [address] Surgeon Neurosurgery 02/13/23 Katherine Snow PA-C [address] [id number] Specialist Neurosurgery 02/13/23 Per Leahy PA-C [address] [address] Specialist Neurosurgery 02/13/23 documented as of this encounter
--- OUTSIDE RECORDS SUMMARY | 2024-11-23 13:37 | XMS_ITS | Encounter Summary ---
Author Organization [facility] Address [address] [place] [address] Care Team Providers Care Research & Analytics Manager Name Role Phone Trey Mueller MD Primary Care Provider Unavaila ble Mily Lawrence MD Primary Care Provider [phone] Ralf Gastelum MD Unavailable [phone] Gretchen Juan MD Unavailable [phone] Katherine Snow PA-C Unavailable [phone] Per Leahy PA-C Unavailable [phone] Encounter Details Date Type Department Care Team Description 02/12/2019 SNF discharge summary Medical Records [address] [place] [id number] [place] [address] Social History Tobacco Use Types Packs/Day Years [...] on filedocumented in this encounter Care Teams Research & Analytics Manager Relationship Specialty Start Date End Date Trey Mueller MD PCP - General Internal Medicine 01/02/19 03/08/19 Mily Lawrence MD PCP - General Internal Medicine 03/09/19 Ralf Gastelum MD 300 [facility] 154 [place] [address] Specialist Cardiovascular Disease 06/08/22 Gretchen Juan MD 175 [facility] 300 [place] [address] Surgeon Neurosurgery 02/13/23 Katherine Snow PA-C 175 [facility] 300 [place] [address] Specialist Neurosurgery 02/13/23 Per Leahy PA-C 175 [facility] 300 [place] [address] Specialist Neurosurgery 02/13/23 documented as of this encounter
--- OUTSIDE RECORDS SUMMARY | 2024-11-23 13:37 | XMS_ITS | Encounter Summary ---
Author Organization [facility] Address [address] [place] [address] Care Team Providers Care Food Service Sales Representatives Name Role Phone Trey Mueller MD Primary Care Provider Unavaila ble Mily Lawrence MD Primary Care Provider [phone] Ralf Gastelum MD Unavailable [phone] Gretchen Juan MD Unavailable [phone] Katherine Snow PA-C Unavailable [phone] Per Leahy PA-C Unavailable [phone] Encounter Details Date Type Department Care Team Description 01/15/2019 Orders Only General Surgery [address] [place] [address] Irish Snow NP Breast microcalcification, mammographic (Primary Dx) Social History Tobacco Use Types Packs/Day Years [...] on file documented as of this encounter Results * DX MAMMO INCL CAD BI (05/11/2019) Irish Snow NP MAMMOGRAPHY documented in this encounter Visit Diagnoses Diagnosis Breast microcalcification, mammographic- Primary Mammographic microcalcification documented in this encounter Care Teams Food Service Sales Representatives Relationship Specialty Start Date End Date Trey Mueller MD PCP - General Internal Medicine 01/02/19 03/08/19 Mily Lawrence MD PCP - General Internal Medicine 03/09/19 Ralf Gastelum MD 300 [facility] [address] [place] [address] Specialist Cardiovascular Disease 06/08/22 Gretchen Juan MD 175 [facility] 300 [place] [address] Surgeon Neurosurgery 02/13/23 Katherine Snow PA-C 175 [facility] 300 [place] [address] Specialist Neurosurgery 02/13/23 Per Leahy PA-C 175 [facility] 300 [place] [address] Specialist Neurosurgery 02/13/23 documented as of this encounter
--- OUTSIDE RECORDS SUMMARY | 2024-11-23 13:37 | XMS_ITS | Encounter Summary ---
Author Organization [facility] Address [address] [place] [address] Care Team Providers Care Criminal Profiler Name Role Phone Mily Lawrence MD Primary Care Provider [phone] Ralf Gastelum MD Unavailable [phone] Gretchen Juan MD Unavailable [phone] Katherine Snow PA-C Unavailable [phone] Per Leahy PA-C Unavailable [phone] Encounter Details Date Type Department Care Team Description 10/28/2019 Release of Information Medical Records [address] [place] [address] Abstract, Provider Social History Tobacco Use Types [...] on filedocumented in this encounter Care Teams Criminal Profiler Relationship Specialty Start Date End Date Mily Lawrence MD PCP - General Internal Medicine 03/09/19 Ralf Gastelum MD 300 [facility] [address] [place] [address] Specialist Cardiovascular Disease 06/08/22 Gretchen Juan MD 175 [facility] 300 [place] [address] Surgeon Neurosurgery 02/13/23 Katherine Snow PA-C 175 [facility] 300 [place] [address] Specialist Neurosurgery 02/13/23 Per Leahy PA-C 175 [facility] 300 [place] [address] Specialist Neurosurgery 02/13/23 documented as of this encounter
--- OUTSIDE RECORDS SUMMARY | 2024-11-23 13:37 | XMS_ITS | Encounter Summary ---
Author Organization [facility] Address [address] [place] [address] Care Team Providers Care Transit Coach Operator Name Role Phone Mily Lawrence MD Primary Care Provider [phone] Trey Mueller MD Primary Care Provider Unavaila ble Mily Lawrence MD Primary Care Provider [phone] Ralf Gastelum MD Unavailable [phone] Gretchen Juan MD Unavailable [phone] Katherine Snow PA-C Unavailable [phone] Per Leahy PA-C Unavailable [phone] Encounter Details Date Type Department Care Team Description 12/23/2018 Orders Only General Surgery [address] [place] [address] Irish Snow NP Abnormal finding on imaging (Primary Dx); At high risk for breast cancer Social History Tobacco Use Types Packs/Day Years [...] documented as of this encounter Results * SONO BREAST, LIMITED (01/07/2019) Irish Snow NP MAMMOGRAPHY documented in this encounter Visit Diagnoses Diagnosis Abnormal finding on imaging- Primary Other nonspecific (abnormal) findings on radiological and other examinations of body structure At high risk for breast cancer documented in this encounter Care Teams Transit Coach Operator Relationship Specialty Start Date End Date Mily Lawrence MD PCP - General Internal Medicine 03/13/17 01/01/19 Trey Mueller MD PCP - General Internal Medicine 01/02/19 03/08/19 Mily Lawrence MD PCP - General Internal Medicine 03/09/19 Ralf Gastelum MD [address] [facility] [address] [place] [address] Specialist Cardiovascular Disease 06/08/22 Gretchen Juan MD 175 [facility] 300 [place] [address] Surgeon Neurosurgery 02/13/23 Katherine Snow PA-C 175 [facility] 300 [place] [address] Specialist Neurosurgery 02/13/23 Per Leahy PA-C 175 [facility] 300 [place] [address] Specialist Neurosurgery 02/13/23 documented as of this encounter
--- OUTSIDE RECORDS SUMMARY | 2024-11-23 13:38 | XMS_ITS | Continuity of Care Document ---
Author Organization [facility] Address [address] [place] [phone] Phone Care Team Providers Care Frame Aligner Name Role Phone Provider, [employer] Unavailable Unavailable Advance Directives Directive Yes / No Effective Date File Name No Information Encounters Encounter Description Practice Location Reason(s) For Visit Diagnoses Date Provider Providers Copied on Encounter [facility], [address] [facility], [place], [place], [id number], [place] tel:[phone] No Information Provider [employer]. . Family History Family Member Type Diagnosis Age At Onset No Information Payers Payer name Insurance type Covered republican ID Authoriza tion(s) No Information Social History Type Description Quantity Date Captured Comments Sex Female Smoking Status No Information Chief Complaint And Reason For Visit No Information History Of Present Illness Encounter Date Complaint History Of Prese nt Illness No Information Instructions Date Instruction Additional Infor mation No Information Assessments Type Assessment Date No Information
--- OUTSIDE RECORDS SUMMARY | 2024-11-23 13:38 | XMS_ITS | Encounter Summary ---
Author Organization [facility] Address [address] [place] [address] Care Team Providers Care Animal Husbandry Professor Name Role Phone Mily Lawrence MD Primary Care Provider [phone] Ralf Gastelum MD Unavailable [phone] Gretchen Juan MD Unavailable [phone] Katherine Snow PA-C Unavailable [phone] Per Leahy PA-C Unavailable [phone] Encounter Details Date Type Department Care Team Description 10/23/2023 Media Analytics Manager Report Medical Records [address] [place] [address] Florina Perla MD Social History Tobacco Use Types Packs/Day [...] on filedocumented in this encounter Care Teams Animal Husbandry Professor Relationship Specialty Start Date End Date Mily Lawrence MD PCP - General Internal Medicine 03/09/19 Ralf Gastelum MD 300 [facility] [address] [place] [address] Specialist Cardiovascular Disease 06/08/22 Gretchen Juan MD 175 [facility] 300 [place] [address] Surgeon Neurosurgery 02/13/23 Katherine Snow PA-C 175 [facility] 300 [place] [address] Specialist Neurosurgery 02/13/23 Per Leahy PA-C 175 [facility] 300 [place] [address] Specialist Neurosurgery 02/13/23 documented as of this encounter
--- OUTSIDE RECORDS SUMMARY | 2024-11-23 13:38 | XMS_ITS | Encounter Summary ---
Author Organization [facility] Address [address] [place] [address] Care Team Providers Care Operations Support Coordinator Name Role Phone Trey Mueller MD Primary Care Provider Unavaila [facility] Mily Lawrence MD Primary Care Provider [phone] Ralf Gastelum MD Unavailable [phone] Gretchen Juan MD Unavailable [phone] Katherine Snow PA-C Unavailable [phone] Per Leahy PA-C Unavailable [phone] Reason for Visit * Reason Comments E-prescribe Rx Request Encounter Details Date Type Department Care Team Description 03/04/2019 Refill Internal Medicine - [address], [address] [place] [address] Mily Lawrence MD [address] [place] [phone] E-prescribe Rx Request Social History Tobacco [...] encounter Miscellaneous Notes * Telephone Encounter - Gwen Patiño - 03/04/2019 4:37 PM EDT Patient would like script to be: PLACED IN PATIENT TELEHEALTH COORDINATOR TO BE PICKED UP BY Patient WHEN WAS THE PATIENT'S LAST APPOINTMENT IN ADULT MEDICINE? 02/19/19 WHEN WAS THE LAST TIME THE PATIENT SAW THEIR PCP? Same as above Does patient have an upcoming appointment? Yes 03/26/19 (THE MEDICATION REQUESTED IS ON THE MED [...] N/A Patients current insurance carrier is: Payor: [employer] FFS / Plan: [employer] ALLIANCE / Product Type: MEDICAID RISK documented in this encounter Plan of Treatment Not on file documented as of this encounter Visit Diagnoses Not on filedocumented in this encounter Care Teams Operations Support Coordinator Relationship Specialty Start Date End Date Trey Mueller MD PCP - General Internal Medicine 01/02/19 03/08/19 Mily Lawrence MD PCP - General Internal Medicine 03/09/19 Ralf Gastelum MD 300 [facility] [address] [place] [address] Specialist Cardiovascular Disease 06/08/22 Gretchen Juan MD 175 [facility] 300 [place] [address] Surgeon Neurosurgery 02/13/23 Katherine Snow PA-C 175 [facility] 300 [place] [address] Specialist Neurosurgery 02/13/23 Per Leahy PA-C 175 [facility] 300 [place] [address] Specialist Neurosurgery 02/13/23 documented as of this encounter
--- OUTSIDE RECORDS SUMMARY | 2024-11-23 13:38 | XMS_ITS | Encounter Summary ---
Author Organization [facility] Address [address] [place] [address] Care Team Providers Care Commercial Diver Name Role Phone Mily Lawrence MD Primary Care Provider [phone] Ralf Gastelum MD Unavailable [phone] Gretchen Juan MD Unavailable [phone] Katherine Snow PA-C Unavailable [phone] Per Leahy PA-C Unavailable [phone] Reason for Visit * Reason Onset Date Comments Call From Pharmacy 08/18/2024 Encounter Details Date Type Department Care Team Description 08/18/2024 Telephone Internal Medicine - [address], [address] [place], [place] [id number] Mily Lawrence MD [address] [place] [phone] Call From Pharmacy Social History Tobacco Use Types Packs/Day Years [...] encounter Miscellaneous Notes * Telephone Encounter - Katherine Cam - 08/19/2024 1:49 PM EDT Called pt, left vm to call back * Telephone Encounter - Mily Lawrence MD - 08/18/2024 8:55 PM EDT Should be taking atorvastatin, But not sure about lisinopril,since some of her BP meds were discontinued by hospital recently,while discharging her,ask pt if she is still taking lisinopril * Telephone Encounter - Katherine Cam - 08/18/2024 12:50 PM EDT Shows on active med list, pls advise? * Telephone Encounter - Jessica Mackey - 08/18/2024 12:38 PM EDT Lidia from [facility] pharmacy called to get clarification on atorvastatin and lisinopril to see if the patient is still taking these medication. Please advise Cb# [phone] documented in this encounter Plan of Treatment Not on file documented as of this encounter Visit Diagnoses Not on filedocumented in this encounter Care Teams Commercial Diver Relationship Specialty Start Date End Date Mily Lawrence MD PCP - General Internal Medicine 03/09/19 Ralf Gastelum MD 300 [facility] [address] [place] [address] Specialist Cardiovascular Disease 06/08/22 Gretchen Juan MD 175 [facility] 300 [place] [address] Surgeon Neurosurgery 02/13/23 Katherine Snow PA-C 175 [facility] 300 [place] [address] Specialist Neurosurgery 02/13/23 Per Leahy PA-C 175 [facility] 300 [place] [address] Specialist Neurosurgery 02/13/23 documented as of this encounter
--- OUTSIDE RECORDS SUMMARY | 2024-11-23 13:38 | XMS_ITS | Encounter Summary ---
Author Organization [facility] Address [address] [place] [address] Care Team Providers Care Side Door Man Name Role Phone Mily Lawrence MD Primary Care Provider [phone] Ralf Gastelum MD Unavailable [phone] Gretchen Juan MD Unavailable [phone] Katherine Sonw PA-C Unavailable [phone] Per Leahy PA-C Unavailable [phone] Encounter Details Date Type Department Care Team Description 11/23/2021 Director Systems Report Medical Records [address] [place] [address] Evelio Smith Social History Tobacco Use Types [...] have Coronavirus / COVID-19? No / Unsure 11/01/2021 1:21 PM EST documented as of this encounter Plan of Treatment Not on file documented as of this encounter Visit Diagnoses Not on filedocumented in this encounter Care Teams Side Door Man Relationship Specialty Start Date End Date Mily Lawrence MD PCP - General Internal Medicine 03/09/19 Ralf Gastelum MD 300 [facility] [address] [place] [address] Specialist Cardiovascular Disease 06/08/22 Gretchen Juan MD 175 [facility] 300 [place] [address] Surgeon Neurosurgery 02/13/23 Katherine Snow PA-C 175 [facility] 300 [place] [address] Specialist Neurosurgery 02/13/23 Per Leahy PA-C 175 [facility] 300 [place] [address] Specialist Neurosurgery 02/13/23 documented as of this encounter
--- OUTSIDE RECORDS SUMMARY | 2024-11-23 13:38 | XMS_ITS | Encounter Summary ---
Author Organization [facility] Address [address] [place] [address] Care Team Providers Care Food Cooking Machine Operator Name Role Phone Mily Lawrence MD Primary Care Provider [phone] Ralf Gastelum MD Unavailable [phone] Gretchen Juan MD Unavailable [phone] Katherine Snow PA-C Unavailable [phone] Per Leahy PA-C Unavailable [phone] Encounter Details Date Type Department Care Team Description 04/14/2024 SCAN Medical Records [address] [place] [address] Jaret Kim MD Social History Tobacco Use Types Packs/Day [...] Name Priority Date/Time Associated Diagnosis Comments OUTSIDE LAB Routine 04/14/2024 OUTSIDE LAB Routine 04/14/2024 documented in this encounter Results * OUTSIDE LAB (04/14/2024) Provider Default LAB * OUTSIDE LAB (04/14/2024) Provider Default LAB documented in this encounter Visit Diagnoses Not on filedocumented in this encounter Care Teams Food Cooking Machine Operator Relationship Specialty Start Date End Date Mily Lawrence MD PCP - General Internal Medicine 03/09/19 Ralf Gastelum MD 300 [facility] [address] [place] [address] Specialist Cardiovascular Disease 06/08/22 Gretchen Juan MD [address] [address] Surgeon Neurosurgery 02/13/23 Katherine Snow PA-C [address] [address] Specialist Neurosurgery 02/13/23 Per Leahy PA-C 175 [facility] 300 [place] [address] Specialist Neurosurgery 02/13/23 documented as of this encounter
--- OUTSIDE RECORDS SUMMARY | 2024-11-23 13:38 | XMS_ITS | Encounter Summary ---
Author Organization [facility] Address [address] [place] [address] Care Team Providers Care Bank And Savings Securities Trader Name Role Phone Mily Lawrence MD Primary Care Provider [phone] Ralf Gastelum MD Unavailable [phone] Gretchen Juan MD Unavailable [phone] Katherine Snow PA-C Unavailable [phone] Per Leahy PA-C Unavailable [phone] Reason for Visit * Reason Onset Date Comments Mychart Rx Refill 05/12/2024 Encounter Details Date Type Department Care Team Description 05/12/2024 Refill Internal Medicine - [address], [address] [place], [place] [id number] Mily Lawrence MD [address] [place] [phone] Mychart Rx Refill Social History Tobacco Use Types Packs/Day [...] Miscellaneous Notes * Telephone Encounter - Katherine Hernandez M.A. - 05/12/2024 2:19 PM EDTFrom: Ange Montesinos [facility]: [facility] Sent: 05/12/2024 2:15 PM EDT Subject: Medication Renewal Request Refills have been requested for the following medications: Other - NYSTATIN OINTMENT MCFP 100,000 UNITS Per Gram for under breasts and belly/INTERTRIGO Preferred pharmacy: [id number] documented in this encounter Plan of Treatment Not on file documented as of this encounter Visit Diagnoses Not on filedocumented in this encounter Care Teams Bank And Savings Securities Trader Relationship Specialty Start Date End Date Mily Lawrence MD PCP - General Internal Medicine 03/09/19 Ralf Gastelum MD 300 [facility] [address] [place] [address] Specialist Cardiovascular Disease 06/08/22 Gretchen Juan MD 175 [facility] 300 [place] [address] Surgeon Neurosurgery 02/13/23 Katherine Snow PA-C 175 [facility] 300 [place] [address] Specialist Neurosurgery 02/13/23 Per Leahy PA-C 175 [facility] 300 [place] [address] Specialist Neurosurgery 02/13/23 documented as of this encounter
--- OUTSIDE RECORDS SUMMARY | 2024-11-23 13:38 | XMS_ITS | Encounter Summary ---
Author Organization [facility] Address [address] [place] [address] Care Team Providers Care Lower School Music Teacher Name Role Phone Trey Mueller MD Primary Care Provider Unavaila Mily Mayen MD Primary Care Provider +[phone] Ralf Gastelum MD Unavailable [phone] Gretchen Juan MD Unavailable [phone] Katherine Snow PA-C Unavailable [phone] Per Leahy PA-C Unavailable [phone] Reason for Visit * Reason Onset Date Comments refill request 03/04/2019 Encounter Details Date Type Department Care Team Description 03/04/2019 Refill Internal Medicine - [address], [address] [place] [address] Trey Mueller MD refill request Social History Tobacco Use Types [...] on filedocumented in this encounter Care Teams Lower School Music Teacher Relationship Specialty Start Date End Date Trey Mueller MD PCP - General Internal Medicine 01/02/19 03/08/19 Mily Lawrence MD PCP - General Internal Medicine 03/09/19 Ralf Gastelum MD 300 [facility] [address] [place] [address] Specialist Cardiovascular Disease 06/08/22 Gretchen Juan MD 175 [facility] 300 [place] [address] Surgeon Neurosurgery 02/13/23 Katherine Snow PA-C [address] [address] Specialist Neurosurgery 02/13/23 Per Leahy PA-C [address] [address] Specialist Neurosurgery 02/13/23 documented as of this encounter
--- OUTSIDE RECORDS SUMMARY | 2024-11-23 13:38 | XMS_ITS | Encounter Summary ---
Author Organization [facility] Address [address] [place] [address] Care Team Providers Care Heeler Machine Name Role Phone Mily Lawrence MD Primary Care Provider Ralf Gastelum MD Unavailable [phone] Gretchen Juan MD Unavailable [phone] Katherine Snow PA-C Unavailable [phone] Per Leahy PA-C Unavailable [phone] Encounter Details Date Type Department Care Team Description 11/06/2021 SCAN [facility] Medical [facility] [address] [address] Ralf Phoenix DPM [address] [id number] Social History Tobacco Use Types Packs/Day Years [...] on filedocumented in this encounter Care Teams Heeler Machine Relationship Specialty Start Date End Date Mily Lawrence MD PCP - General Internal Medicine 03/09/19 Ralf Gastelum MD 300 [facility] 154 [place] [address] Specialist Cardiovascular Disease 06/08/22 Gretchen Juan MD [address] [address] Surgeon Neurosurgery 02/13/23 Katherine Snow PA-C [address] [address] Specialist Neurosurgery 02/13/23 Per Leahy PA-C 175 [facility] 300 [place] [address] Specialist Neurosurgery 02/13/23 documented as of this encounter
--- OUTSIDE RECORDS SUMMARY | 2024-11-23 13:38 | XMS_ITS | Encounter Summary ---
Author Organization [facility] Address [address] [place] [address] Care Team Providers Care Correctional Officer Name Role Phone Mily Lawrence MD Primary Care Provider [phone] Ralf Gastelum MD Unavailable [phone] Gretchen Juan MD Unavailable [phone] Katherine Snow PA-C Unavailable [phone] Per Leahy PA-C Unavailable [phone] Reason for Visit * Reason Comments E-prescribe Rx Request Encounter Details Date Type Department Care Team Description 07/29/2024 Refill Internal Medicine - [address], [address] [place] [address] Mily Lawrence MD [address] [place] [phone] E-prescribe Rx Request Social History Tobacco [...] Telephone Encounter - Katherine Hernandez M.A. - 07/31/2024 1:05 PM EDT Lab Results Component Value Date NA 142 02/06/2024 K 4.6 02/06/2024 CO2 31 02/06/2024 CL 106 02/06/2024 BUN 21 02/06/2024 CREAT 0.84 02/06/2024 GLU 93 02/06/2024 CA 9.8 02/06/2024 GFR 82 02/06/2024 * Telephone Encounter - Daniel Sevilla - 07/30/2024 11:03 AM EDT LOGAN 05/08/24 NOV 08/13/24 documented in this encounter Plan of Treatment Not on file documented as of this encounter Visit Diagnoses Not on filedocumented in this encounter Care Teams Correctional Officer Relationship Specialty Start Date End Date Mily Lawrence MD PCP - General Internal Medicine 03/09/19 Ralf Gastelum MD 300 [facility] [address] [place] [address] Specialist Cardiovascular Disease 06/08/22 Gretchen Juan MD 175 [facility] 300 [place] [address] Surgeon Neurosurgery 02/13/23 Katherine Snow PA-C 175 [facility] 300 [place] [address] Specialist Neurosurgery 02/13/23 Per Leahy PA-C 175 [facility] [address] [place] [address] Specialist Neurosurgery 02/13/23 documented as of this encounter
--- OUTSIDE RECORDS SUMMARY | 2024-11-23 13:38 | XMS_ITS | Encounter Summary ---
Author Organization [facility] Address [address] [place] [address] Care Team Providers Care Glove Sewer Name Role Phone Mily Lawrence MD Primary Care Provider +[phone]- [phone] Ralf Gastelum MD Unavailable [phone] Gretchen Juan MD Unavailable [phone] Katherine Snow PA-C Unavailable [phone] Per Leahy PA-C Unavailable [phone] Encounter Details Date Type Department Care Team Description 06/15/2024 [facility] [address] [place] [address] Md Tiki Social History Tobacco Use Types Packs/Day Years [...] on filedocumented in this encounter Care Teams Glove Sewer Relationship Specialty Start Date End Date Mily Lawrence MD PCP - General Internal Medicine 03/09/19 Ralf Gastelum MD 300 [facility] 154 [place] [address] Specialist Cardiovascular Disease 06/08/22 Gretchen Juan MD 175 [facility] 300 [place] [address] Surgeon Neurosurgery 02/13/23 Katherine Snow PA-C 175 [facility] 300 [place] [address] Specialist Neurosurgery 02/13/23 Per Leahy PA-C [address] [address] Specialist Neurosurgery 02/13/23 documented as of this encounter
--- OUTSIDE RECORDS SUMMARY | 2024-11-23 13:38 | XMS_ITS | Encounter Summary ---
Author Organization [facility] Address [address] [place] [address] Care Team Providers Care Echo Technician Name Role Phone Mily Lawrence MD Primary Care Provider [phone] Ralf Gastelum MD Unavailable [phone] Gretchen Juan MD Unavailable [phone] aKtherine Snow PA-C Unavailable [phone] Per Leahy PA-C Unavailable [phone] Reason for Visit * Reason Comments E-prescribe Rx Request Encounter Details Date Type Department Care Team Description 05/28/2023 Refill [facility] [address] [address] Brian Ferrari MD [address] [place] [address] E-prescribe Rx Request Social History Tobacco Use [...] as of this encounter Visit Diagnoses Diagnosis Primary osteoarthritis of left knee Primary localized osteoarthrosis, lower leg documented in this encounter Care Teams Echo Technician Relationship Specialty Start Date End Date Mily Lawrence MD PCP - General Internal Medicine 03/09/19 Ralf Gastelum MD [address] [address] Specialist Cardiovascular Disease 06/08/22 Gretchen Juan MD [address] [address] Surgeon Neurosurgery 02/13/23 Katherine Snow PA-C [address] [address] Specialist Neurosurgery 02/13/23 Per Leahy PA-C [address] [address] Specialist Neurosurgery 02/13/23 documented as of this encounter
--- OUTSIDE RECORDS SUMMARY | 2024-11-23 13:38 | XMS_ITS | Encounter Summary ---
Author Organization [facility] Address [address] [place] [address] Care Team Providers Care Data Entry Name Role Phone Mily Lawrence MD Primary Care Provider [phone] Ralf Gastelum MD Unavailable [phone] Gretchen Juan MD Unavailable [phone] Katherine Snow PA-C Unavailable [phone] Per Leahy PA-C Unavailable [phone] Encounter Details Date Type Department Care Team Description 06/07/2020 Film Reproducer Report Medical Records [address] [place] [address] Camilla Lopez MD Social History Tobacco Use [...] on filedocumented in this encounter Care Teams Data Entry Relationship Specialty Start Date End Date Mily Lawrence MD PCP - General Internal Medicine 03/09/19 Rafl Gastelum MD 300 [facility] [address] [place] [address] Specialist Cardiovascular Disease 06/08/22 Gretchen Juan MD 175 [facility] 300 [place] [address] Surgeon Neurosurgery 02/13/23 Katherine Snow PA-C 175 [facility] 300 [place] [address] Specialist Neurosurgery 02/13/23 Per Leahy PA-C 175 [facility] 300 [place] [address] Specialist Neurosurgery 02/13/23 documented as of this encounter
--- OUTSIDE RECORDS SUMMARY | 2024-11-23 13:38 | XMS_ITS | Encounter Summary ---
Author Organization [facility] Address [address] [place] [address] Care Team Providers Care Chief Concierge Name Role Phone Mily Lawrence MD Primary Care Provider Ralf Gastelum MD Unavailable [phone] Gretchen Juan MD Unavailable [phone] Katherine Snow PA-C Unavailable [phone] Per Leahy PA-C Unavailable Encounter Details Date Type Department Care Team Description 07/30/2024 SCAN [facility] Medical [facility] Neurosurgery [place] [address] [phone] Per Leahy PA-C [address] [id number] Social History Tobacco Use Types Packs/Day Years [...] filedocumented in this encounter Care Teams Chief Concierge Relationship Specialty Start Date End Date Mily Lawrence MD PCP - General Internal Medicine 03/09/19 Ralf Gastelum MD 300 [facility] 154 [place] [address] Specialist Cardiovascular Disease 06/08/22 Gretchen Juan MD 175 [facility] 300 [place] [address] Surgeon Neurosurgery 02/13/23 Katherine Snow PA-C 175 [facility] 300 [place] [address] Specialist Neurosurgery 02/13/23 Per Leahy PA-C 175 [facility] 300 [place] [address] Specialist Neurosurgery 02/13/23 documented as of this encounter
--- OUTSIDE RECORDS SUMMARY | 2024-11-23 13:38 | XMS_ITS | Encounter Summary ---
Author Organization [facility] Address [address] [place] [address] Care Team Providers Care Honest John Rocket Crew Member Name Role Phone Mily Lawrence MD Primary Care Provider [phone] Ralf Gastelum MD Unavailable [phone] Gretchen Juan MD Unavailable [phone] Katherine Snow PA-C Unavailable [phone] Per Leahy PA-C Unavailable [phone] Reason for Visit * Reason Comments E-prescribe Rx Request Encounter Details Date Type Department Care Team Description 04/07/[address] [facility] Internal Medicine [address], [address] [place] [address] Mily Lawrence MD [address] [place] [phone] E-prescribe Rx Request Social History Tobacco [...] encounter Miscellaneous Notes * Telephone Encounter - Nuha Kim - 04/07/2019 8:44 AM EDT Patient would like script to be: E-PRESCRIBED/FAXED TO PHARMACY WHEN WAS THE PATIENT'S LAST APPOINTMENT IN ADULT MEDICINE? 02/19/2019 WHEN WAS THE LAST TIME THE PATIENT SAW THEIR PCP? Same as above Does patient have an upcoming appointment? Yes 04/10/2019 (THE MEDICATION REQUESTED IS ON THE MED [...] N/A Patients current insurance carrier is: Payor: [employer] / Plan: [employer] / Product Type: MEDICAID RISK documented in this encounter Plan of Treatment Not on file documented as of this encounter Visit Diagnoses Not on filedocumented in this encounter Care Teams Honest John Rocket Crew Member Relationship Specialty Start Date End Date Mily Lawrence MD PCP - General Internal Medicine 03/09/19 Ralf Gastelum MD [address] [place] [address], [place] [address] Specialist Cardiovascular Disease 06/08/22 Gretchen Juan MD 175 [facility] 300 [place] [address] Surgeon Neurosurgery 02/13/23 Katherine Snow PA-C [address] [address] Specialist Neurosurgery 02/13/23 Per Leahy PA-C 175 [facility] 300 [place] [address] Specialist Neurosurgery 02/13/23 documented as of this encounter
--- OUTSIDE RECORDS SUMMARY | 2024-11-23 13:38 | XMS_ITS | Encounter Summary ---
Author Organization [facility] Address [address] [place] [address] Care Team Providers Care First Sampler Name Role Phone Mily Lawrence MD Primary Care Provider [phone] Ralf Gastelum MD Unavailable [phone] Gretchen Juan MD Unavailable [phone] Katherine Snow PA-C Unavailable [phone] Per Leahy PA-C Unavailable [phone] Encounter Details Date Type Department Care Team Description 03/26/2023 Roll Operator Report Medical Records [address] [place] [address] Sravanthi Doss Social History Tobacco Use Types Packs/Day Years [...] on filedocumented in this encounter Care Teams First Sampler Relationship Specialty Start Date End Date Mily Lawrence MD PCP - General Internal Medicine 03/09/19 Ralf Gastelum MD [address] [facility] [address] [place] [address] Specialist Cardiovascular Disease 06/08/22 Gretchen Juan MD [address] [facility] 300 [place] [address] Surgeon Neurosurgery 02/13/23 Katherine Snow PA-C 175 [facility] 300 [place] [address] Specialist Neurosurgery 02/13/23 Per Leahy PA-C 175 [facility] 300 [place] [address] Specialist Neurosurgery 02/13/23 documented as of this encounter
--- OUTSIDE RECORDS SUMMARY | 2024-11-23 13:38 | XMS_ITS | Encounter Summary ---
Author Organization [facility] Address [address] [place] [address] Care Team Providers Care Restaurant Associate Name Role Phone Mily Lawrence MD Primary Care Provider [phone] Ralf Gastelum MD Unavailable [phone] Gretchen Juan MD Unavailable [phone] Katherine Snow PA-C Unavailable [phone] Pre Leahy PA-C Unavailable [phone] Encounter Details Date Type Department Care Team Description 06/15/2024 Drop Tester Report Medical Records [address] [place] [address] Florina Perla MD Social History Tobacco Use [...] on filedocumented in this encounter Care Teams Restaurant Associate Relationship Specialty Start Date End Date Mily Lawrence MD PCP - General Internal Medicine 03/09/19 Ralf Gastelum MD 300 [facility] [address] [place] [address] Specialist Cardiovascular Disease 06/08/22 Gretchen Juan MD 175 [facility] 300 [place] [address] Surgeon Neurosurgery 02/13/23 Katherine Snow PA-C 175 [facility] 300 [place] [address] Specialist Neurosurgery 02/13/23 Per Leahy PA-C 175 [facility] 300 [place] [address] Specialist Neurosurgery 02/13/23 documented as of this encounter
--- OUTSIDE RECORDS SUMMARY | 2024-11-23 13:38 | XMS_ITS | Encounter Summary ---
Author Organization [facility] Address [address] [place] [address] Care Team Providers Care Ethanol Maintenance Mechanic Name Role Phone Mily Lawrence MD Primary Care Provider Ralf Gastelum MD Unavailable [phone] Gretchen Juan MD Unavailable [phone] Katherine Snow PA-C Unavailable [phone] Per Leahy PA-C Unavailable [phone] Reason for Visit * Reason Comments E-prescribe Rx Request Encounter Details Date Type Department Care Team Description 08/04/2024 Refill [facility] [address] [address] Brian Ferrari MD [address] [place] [address] E-prescribe Rx Request Social History Tobacco Use [...] as of this encounter Visit Diagnoses Diagnosis Lumbar degenerative disc disease Degeneration of lumbar or lumbosacral intervertebral disc Sciatica of right side Sciatica documented in this encounter Care Teams Ethanol Maintenance Mechanic Relationship Specialty Start Date End Date Mily Lawrence MD PCP - General Internal Medicine 03/09/19 Ralf Gastelum MD 300 [facility] 154 [place] [address] Specialist Cardiovascular Disease 06/08/22 Gretchen Juan MD [address] [address] Surgeon Neurosurgery 02/13/23 Katherine Snow PA-C [address] [address] Specialist Neurosurgery 02/13/23 Per Leahy PA-C [address] [address] Specialist Neurosurgery 02/13/23 documented as of this encounter
--- OUTSIDE RECORDS SUMMARY | 2024-11-23 13:38 | XMS_ITS | Encounter Summary ---
Author Organization [facility] Address [address] [place] [address] Care Team Providers Care Computing Systems Mechanic Name Role Phone Mily Lawrence MD Primary Care Provider [phone] Ralf Gastelum MD Unavailable [phone] Gretchen Juan MD Unavailable [phone] Katherine Snow PA-C Unavailable [phone] Per Leahy PA-C Unavailable [phone] Encounter Details Date Type Department Care Team Description 05/12/2019 Orders Only Medical Records [address] [place] [address] Abstract, Provider Breast microcalcification, mammographic Social History Tobacco Use Types Packs/Day Years [...] Name Priority Date/Time Associated Diagnosis Comments OUTSIDE ULTRASOUND Routine 05/11/2019 DX MAMMO INCL CAD BI Routine 05/11/2019 Breast microcalcification, mammographic documented in this encounter Results * OUTSIDE ULTRASOUND (05/11/2019) Irish Snow NP RADIOLOGY * DX MAMMO INCL CAD BI (05/11/2019) Irish Snow LIME KILN AND RECAUSTICIZING OPERATOR MAMMOGRAPHY documented in this encounter Visit Diagnoses Diagnosis Breast microcalcification, mammographic Mammographic microcalcification documented in this encounter Care Teams Computing Systems Mechanic Relationship Specialty Start Date End Date Mily Lawrence MD PCP - General Internal Medicine 03/09/19 Ralf Gastelum MD 300 [facility] [address] [place] [address] Specialist Cardiovascular Disease 06/08/22 Gretchen Juan MD [address] [address] Surgeon Neurosurgery 02/13/23 Katherine Snow PA-C 175 [facility] 300 [place] [address] Specialist Neurosurgery 02/13/23 Per Leahy PA-C 175 [facility] 300 [place] [address] Specialist Neurosurgery 02/13/23 documented as of this encounter
--- OUTSIDE RECORDS SUMMARY | 2024-11-23 13:38 | XMS_ITS | Encounter Summary ---
Author Organization [facility] Address [address] [place] [address] Care Team Providers Care Chainstitch Felled Seam Operator Name Role Phone Trey Mueller MD Primary Care Provider Unavaila Mily Mayen MD Primary Care Provider [phone] Ralf Gastelum MD Unavailable [phone] Gretchen Juan MD Unavailable [phone] Katherine Snow PA-C Unavailable [phone] Per Leahy PA-C Unavailable [phone] Encounter Details Date Type Department Care Team Description 03/04/2019 Orders Only Medical Records [address] [place] [address] Abstract, Provider Social History Tobacco Use Types [...] on filedocumented in this encounter Care Teams Chainstitch Felled Seam Operator Relationship Specialty Start Date End Date Trey Mueller MD PCP - General Internal Medicine 01/02/19 03/08/19 Mily aLwrence MD PCP - General Internal Medicine 03/09/19 Ralf Gastelum MD 300 [facility] [address] [place] [address] Specialist Cardiovascular Disease 06/08/22 Gretchen Juan MD 175 [facility] 300 [place] [address] Surgeon Neurosurgery 02/13/23 Katherine Snow PA-C 175 [facility] 300 [place] [address] Specialist Neurosurgery 02/13/23 Per Leahy PA-C 175 [facility] 300 [place] [address] Specialist Neurosurgery 02/13/23 documented as of this encounter
--- OUTSIDE RECORDS SUMMARY | 2024-11-23 13:38 | XMS_ITS | Encounter Summary ---
Author Organization [facility] Address [address] [place] [address] Care Team Providers Care Chronic Disease Epidemiologist Name Role Phone Mily Lawrence MD Primary Care Provider [phone] Ralf Gastelum MD Unavailable [phone] Gretchen Juan MD Unavailable [phone] Katherine Snow PA-C Unavailable [phone] Per Leahy PA-C Unavailable [phone] Encounter Details Date Type Department Care Team Description 10/30/2021 [facility] Internal Medicine [address], [address] [place] [address] Mily Lawrence MD [address] [place] [phone] Social History Tobacco Use Types Packs/Day Years [...] on filedocumented in this encounter Care Teams Chronic Disease Epidemiologist Relationship Specialty Start Date End Date Mily Lawrence MD PCP - General Internal Medicine 03/09/19 Ralf Gastelum MD [address] [address] Specialist Cardiovascular Disease 06/08/22 Gretchen Juan MD [address] [address] Surgeon Neurosurgery 02/13/23 Katherine Snow PA-C [address] [address] Specialist Neurosurgery 02/13/23 Per Leahy PA-C [address] [address] Specialist Neurosurgery 02/13/23 documented as of this encounter
--- OUTSIDE RECORDS SUMMARY | 2024-11-23 13:38 | XMS_ITS ---
Author Name [facility] Organization Unknown Results Test Name/Text Value Interpretation Date Range Source CREAT SERPL [facility] 1mg/dL Normal [id number] 0.5 - 1 [facility] SODIUM SERPL [facility] 136mmol/L Normal [id number] 135 - 145 [facility] GLUCOSE SERPL [facility] 106mg/dL Normal [id number] 70 - 199 [facility] Glomerular filtration rate/1.73 sq M. predicted 66 Normal [id number] 60 - [facility] CHLORIDE SERPL [facility] 101mmol/L Normal [id number] 98 - 107 [facility] HCO3 SER SCNC 27mmol/L Normal [id number] 24 - 32 [facility] POTASSIUM SERPL SCNC 4.7mmol/L Normal [id number] 3.5 - 5.1 [facility] ANION GAP SERPL [facility] 8mmol/L Normal [id number] 5 - 14 [facility] BUN SERPL [facility] 25mg/dL Above high normal [id number] 7 - 17 [facility] CALCIUM SERPL [facility] 10mg/dL Normal [id number] 8.4 - 10 .2 [facility] RBC NO. BLD AUTO 4.86M/uL Normal [id number] 4.2 - 5.4 [facility] MCH RBC QN AUTO 28.4pg Normal [id number] 25 - 33 C [facility] MCHC RBC AUTO MCNC 33g/dL Normal [id number] 32 - 36 [facility] HGB BLD [facility] 13.8g/dL Normal [id number] 12.5 - 16 [facility] WBC NO. BLD AUTO 11.8K/uL Above high normal [id number] 4 - 10.5 [facility] HCT VFR BLD AUTO 41.9% Normal [id number] 37 - 47 [facility] MCV RBC AUTO 86.2fL Normal [id number] 78 - 100 [facility] RDW RBC AUTO RTO 14.4% Normal [id number] 12.1 - 16. 2 [facility] PLATELET NO. BLD AUTO 275K/uL Normal [id number] 150 - 450 [facility] PMV BLD AUTO 8fL Normal [id number] 7.4 - 11.4 CTT [facility] Glucose Ur Ql Strip.auto NEGATIVE Normal [id number] - [facility] Prot Ur Ql Strip.auto NEGATIVE Normal [id number] - [facility] Nitrite Ur Ql Strip.auto NEGATIVE Normal [id number] - [facility] Hgb Ur Ql Strip.auto NEGATIVE Normal [id number] - [facility] Leukocyte esterase Ur Ql Strip.auto NEGATIVE Normal [id number] - [facility] Clarity Ur Refract.auto CLEAR Normal [id number] [facility] Ketones Ur Ql Strip.auto NEGATIVE Normal [id number] - [facility] pH Ur Strip.auto 5 Normal [id number] 4.5 - 8 [facility] Sp Gr Ur Strip.auto 1.01 Normal [id number] 1.005 - 1.03 [facility] SPECIMEN SOURCE XXX URINE CLEAN CATCH Normal [id number] [facility] CREAT SERPL [facility] 1.1mg/dL Above high normal [id number] 0. 5 - 1 [facility] BILIRUB SERPL [facility] 0.7mg/dL Normal [id number] 0.3 - 1 [facility] AST SERPL [facility] 22U/L Normal [id number] 5 - 40 [facility] Glomerular filtration rate/1.73 sq M. predicted 59 Below low normal 60 - [facility] HCO3 SER SCNC 28mmol/L Normal [id number] 24 - 32 [facility] POTASSIUM SERPL SCNC 4.4mmol/L Normal [id number] 3.5 - 5.1 [facility] ANION GAP SERPL SCNC 12mmol/L Normal [id number] 5 - 14 [facility] PROT SERPL [facility] 8.3g/dL Normal [id number] 6.4 - 8.5 C [facility] CALCIUM SERPL [facility]NC 11.5mg/dL Above high normal [id number] 8.4 - 10.2 [facility] ALP SERPL-CCNC 51U/L Normal [id number] 34 - 104 [facility] SODIUM SERPL [facility] 140mmol/L Normal [id number] 135 - 145 [facility] GLUCOSE P FAST SERPL [facility]NC 111mg/dL Above high normal [id number] 70 - 99 [facility] ALBUMIN SERPL BCG MCNC 4.7g/dL Normal [id number] 3.5 - 5 [facility] CHLORIDE SERPL [facility] 100mmol/L Normal [id number] 98 - 107 [facility] ALT SERPL [facility] 18U/L Normal [id number] 7 - 52 [facility] BUN SERPL [facility] 22mg/dL Above high normal [id number] 7 - 17 [facility] PREALB SERPL NEPH MCNC 24.7mg/dL Normal [id number] 17 - 34 [facility] DIFFERENTIAL TYPE AUTOMATED Normal [id number] [facility] NEUTROPHILS NFR BLD AUTO 53.3% Normal [id number] 44 - 74 [facility] BASOPHILS NFR BLD AUTO 0.7% Normal [id number] 0 - 2 [facility] MONOCYTES NFR BLD AUTO 7.2% Normal [id number] 2 - 12 [facility] HCT VFR BLD AUTO 41.2% Normal [id number] 37 - 47 [facility] MONOCYTES NO. BLD AUTO 0.6K/uL Normal [id number] 0 - 0.8 [facility] RDW RBC AUTO RTO 14.7% Normal [id number] 12.1 - 16. 2 [facility] PLATELET NO. BLD AUTO 285K/uL Normal [id number] 150 - 450 [facility] EOSINOPHIL NO. BLD AUTO 0.3K/uL Normal [id number] 0 - 0.5 [facility] RBC NO. BLD AUTO 4.76M/uL Normal [id number] 4.2 - 5.4 [facility] MCH RBC QN AUTO 28.4pg Normal [id number] 25 - 33 C [facility] MCHC RBC AUTO MCNC 32.8g/dL Normal [id number] 32 - 36 [facility] HGB BLD [facility] 13.5g/dL Normal [id number] 12.5 - 16 [facility] BASOPHILS IN BLOOD BY AUTOMATED COUNT 0.1K/uL Normal [id number] 0 - 0.2 [facility] WBC NO. BLD AUTO 8.2K/uL Normal [id number] 4 - 10.5 [facility] EOSINOPHIL NFR BLD AUTO 3.3% Normal [id number] 0 - 6 [facility] LYMPHOCYTES NFR BLD AUTO 35.5% Normal [id number] 20 - 48 [facility] MCV RBC AUTO 86.6fL Normal [id number] 78 - 100 [facility] NEUTROPHILS NO. BLD AUTO 4.3K/uL Normal [id number] 1.8 - 7.8 [facility] LYMPHOCYTES NO. BLD AUTO 2.9K/uL Normal [id number] 1 - 3.2 [facility] PMV BLD AUTO 9.2fL Normal [id number] 7.4 - 11.4 [facility] History of Medication Use Medication Directions Dispensed Refills Start Date End Date Status diclofenac (VOLTAREN) 1 % topical gel Apply 4 g topically 2 (two) times a day. 2 active clotrimazole (LOTRIMIN) 1 % cream Apply to skin and toenails daily for 12 weeks 4 active amoxicillin (AMOXIL) 500 mg tablet Take 4 tablets, p.o., once, 1 hour prior to procedure. 4 active galcanezumab-gnlm (EMGALITY) 120 MG/ML injection Inject under the skin. never received active pantoprazole (PROTONIX) 40 MG EC tablet 40 mg 40 mg, Oral, Every Morning on an empty stomach (Daily), First dose on Sat07/17/24 at 0600Please select an indication: Pre-Medication 4 active nystatin (MYCOSTATIN) ointment Apply topically to affected areas twice a day for 10 days 4 active metoprolol tartrate (LOPRESSOR) 50 mg tablet Take 1 tablet (50 mg total) by mouth 2 (two) times a day. 4 active ondansetron (ZOFRAN) 4 mg tablet Take 1 tablet (4 mg total) by mouth every 8 (eight) hours if needed for nausea. 2 active metoprolol tartrate (LOPRESSOR) tablet 50 mg 50 mg, Oral, 2 times daily, First dose (after last modification) on Sat07/21/24 at 0900Hold for sbp <90?? 4 active ubrogepant (Ubrelvy) 100 mg tablet 4 active galcanezumab-gnlm (Emgality Pen) 120 mg/mL injection pen Inject under the skin. active pyridoxine HCl, vitamin B6, (PYRIDOXINE, VITAMIN B6, ORAL) Take by mouth. act dwight atorvastatin (LIPITOR) 10 mg tablet Take 1 tablet (10 mg total) by mouth 1 (one) time each day. 4 active traZODone (DESYREL) 50 MG tablet Take 1 tablet (50 mg total) by mouth every night at bedtime. 4 aborted atorvastatin (LIPITOR) 10 mg tablet Take 1 tablet (10 mg total) by mouth 1 (one) time each day. 4 active bisacodyl (DULCOLAX) suppository 10 mg 10 mg, Rectal, Once as needed, constipation, Starting on Sat07/17/24 at 0000, For 1 doseAdminister POD#2 if no BM 4 completed traMADoL (ULTRAM) 50 mg tablet Take 1 tablet (50 mg total) by mouth every 6 (six) hours if needed for moderate pain or severe pain. 4 active iopamidol (ISOVUE-370) 76 % injection 85 mL 85 mL, Intravenous, IMG once as needed, contrast, Starting on Sat07/19/24 at 2103, For 1 dose, Radiology Contrast 4 completed ubrogepant (Ubrelvy) 100 mg tablet 4 active metoprolol tartrate (LOPRESSOR) 50 mg tablet Take 1 tablet (50 mg total) by mouth 2 (two) times a day. 4 active melatonin 3 mg tablet Take 1 tablet (3 mg total) by mouth at bedtime. 4 active traMADol (ULTRAM) 50 MG tablet Take 50 mg by mouth. 4 024 aborted No known medications No known medications active oxyBUTYnin XL (DITROPAN-XL) 10 mg 24 hr tablet Take 1 tablet (10 mg total) by mouth 1 (one) time each day. for 360 days 4 active galcanezumab-gnlm (EMGALITY) 120 MG/ML injection Inject under the skin. never received active nystatin (MYCOSTATIN) ointment APPLY TOPICALLY TO AFFECTED AREAS TWICE A DAY FOR 10 DAYS 4 active spironolactone (ALDACTONE) 100 mg tablet 4 active phenazopyridine (PYRIDIUM) tablet 95 mg 95 mg, Oral, 3 times daily with meals, First dose on 07/18/24 at 1200, For 3 doses 4 completed methylPREDNISolone (MEDROL DOSEPACK) 4 MG tablet follow package directions 4 active Multiple Vitamin (Daily-Michelle Multivitamin) TABS Take 1 tablet by mouth daily. 4 active ondansetron (ZOFRAN) 4 MG tablet Every 8 Hours as needed for Nausea 5 024 active SUMAtriptan (IMITREX) 50 mg tablet TAKE 1 TABLET BY MOUTH AT LEAST 2 HOURS BETWEEN DOSES NEEDED FOR 30 DAY SUPPLY 2 active metoprolol tartrate (LOPRESSOR) tablet 25 mg 25 mg, Oral, 2 times daily, First dose (after last modification) on 07/19/24 at 2300Hold for sbp <90?? 4 aborted polyethylene glycol (MIRALAX) 17 gram packet Take 17 g by mouth 1 (one) time each day. 1 active polyethylene glycol (MIRALAX) 17 gram packet Take 17 g by mouth 1 (one) time each day. 1 active clotrimazole (LOTRIMIN) 1 % cream APPLY TO SKIN AND TOENAILS DAILY FOR 12 WEEKS 4 active lisinopriL (PRINIVIL,ZESTRIL) 30 mg tablet Take 1 tablet (30 mg total) by mouth 1 (one) time each day. 4 active spironolactone (ALDACTONE) 100 MG tablet Take 1 tablet (100 mg total) by mouth every night at bedtime. active onabotulinumtoxinA (Botox) 200 unit injection active cyclobenzaprine (FLEXERIL) 10 MG tablet Take 1 tablet (10 mg total) by mouth 3 (three) times a day as needed for muscle spasms. active ketoconazole (NIZORAL) 2 % shampoo USE ONCE DAILY A FACE WASH active No known medications No known medications active thiamine 100 mg tablet 4 active acetaminophen (TYLENOL) 500 mg tablet Take 2 tablets (1,000 mg total) by mouth 3 (three) times a day. active celecoxib (CeleBREX) 200 mg capsule Take 1 capsule (200 mg total) by mouth 2 (two) times a day if needed (PAIN). TAKE WITH FOOD AND STAY HYDRATED 4 active traZODone (DESYREL) 50 mg tablet Take 1 tablet (50 mg total) by mouth at bedtime. 4 active omeprazole (PriLOSEC) [address] capsule Take 1 capsule (20 mg total) by mouth 1 (one) time each day. 4 active cholecalciferol (VITAMIN D-3) 50 mcg (2,000 unit) capsule Take 1 capsule (2,000 Units total) by mouth 1 (one) time each day. 4 active gabapentin (NEURONTIN) capsule 300 mg 300 mg, Oral, 2 times daily, First dose on Torie 07/16/24 at 1800 7 active hydroCHLOROthiazide (HYDRODIURIL) tablet 25 mg 25 mg, Oral, Daily, First dose on Sat07/17/24 at 0900 4 024 aborted clotrimazole (LOTRIMIN) 1 % cream APPLY TO SKIN AND TOENAILS DAILY FOR 12 WEEKS 4 active senna (SENOKOT) 8.6 MG tablet Take 1 tablet by mouth 2 (two) times a day. 4 active acetaminophen (TYLENOL) 650 MG CR tablet Take 1 tablet (650 mg total) by mouth. active gabapentin (NEURONTIN) 300 MG capsule Take 1 capsule (300 mg total) by mouth 2 (two) times a day. 1 tab in am; 2 at night 7 active thiamine (VITAMIN B-1) 100 MG tablet TAKE 2 AND 1/2 TABS BY MOUTH EVERY DAY 4 active multivitamin (MULTIPLE VITAMINS ORAL) Take 1 tablet by mouth 1 (one) time each day. 4 active pyridoxine (B-6) 250 mg tablet 4 active hydroCHLOROthiazide (HYDRODIURIL) 25 mg tablet Take 1 tablet (25 mg total) by mouth 1 (one) time each day. 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 active 2021-12-20 2 ProblemAct [facility] DVT (deep venous thrombosis) active 2019-03-21 2 ProblemAct [facility] Vitamin D deficiency active 2015-01-20 8 ProblemAct [facility] Degenerative joint disease of cervical spine active 2018-06-21 4 ProblemAct [facility] Cervical post-laminectomy syndrome active 2021-09-21 1 ProblemAct [facility] Urinary incontinence active 2018-06-21 4 ProblemAct [facility] S/P lumbar fusion active 2024-09-20 7 ProblemAct [facility] Abnormal EKG active 3 ProblemAct [facility] Acute bilateral low back pain without sciatica active 2024-09-20 7 ProblemAct [facility] Diastolic hypertension active 2021-04-20 4 ProblemAct [facility] Diarrhea active 2024-07-21 8 ProblemAct [facility] Degeneration of cervical intervertebral disc active 2021-09-21 1 ProblemAct [facility] Lumbar degenerative disc disease active 2018-01-19 2 ProblemAct [facility] Primary osteoarthritis of left knee active 2 ProblemAct [facility] Neck pain active 2023-01-20 7 ProblemAct [facility] Nausea and vomiting active 2024-07-21 8 ProblemAct [facility] GERD (gastroesophageal reflux disease) active 2016-08-21 6 ProblemAct [facility] Sleep apnea active 2018-01-19 2 ProblemAct [facility] Chronic back pain active 2018-06-21 4 ProblemAct [facility] Status post total left knee replacement active 2024-09-20 7 ProblemAct [facility] Class 2 obesity active 2024-06-21 2 ProblemAct [facility] Radiculopathy, lumbar region active EncounterDiagnosisAct [facility] Anemia active EncounterDiagnosisAct [facility] Inadequate oral intake active EncounterDiagnosi sAct [facility] Post-thrombotic syndrome active 2019-03-21 6 ProblemAct [facility] Occipital headache active 2021-09-21 1 ProblemAct [facility] Other muscle spasm active 2024-09-20 7 ProblemAct [facility] Epigastric pain active 2024-07-21 8 ProblemAct [facility] Depression with anxiety active 2015-12-21 4 ProblemAct [facility] Brachial radiculitis active 2021-09-21 1 ProblemAct [facility] Displacement of lumbar intervertebral disc without myelopathy active 2021-09-21 1 ProblemAct [facility] Breast microcalcification, mammographic active 1 ProblemAct [facility] Hyperlipidemia active 2017-11-21 7 ProblemAct [facility] Lumbosacral radiculitis active 2021-09-21 1 ProblemAct [facility] Chest pain active 2021-04-20 4 ProblemAct [facility] Primary osteoarthritis of both first carpometacarpal joints active 2021-04-21 7 ProblemAct [facility] Insomnia active 2015-05-22 0 ProblemAct [facility] Immunizations Vaccine Date Source Lot Number Status Influenza Quadravalent, MDCK , 0.5ml, preservative free (Flucelvax) 6mo and older 11/15/2017 [facility] 1952 46 completed Hepatitis B (Bhelotb-J-Xwrpt , Recombivax HB-Adult) 19yo and older 04/22/2019 [facility] [id number] complet ed Influenza trivalent, 0.5mL, preservative free (Fluarix; FluLaval; Fluzone) ages 6mo and older (Afluria) 3 years and older 07/05/2018 [facility] [id number] completed Hepatitis B (Wrfkzda-M-Dzhhp , Recombivax HB-Adult) 19yo and older 05/26/2019 [facility] [id number] complet ed Moderna SARS-CoV-2 COVID-19, mRNA, LNP-S, preservative free 02/17/2021 [facility] [id number] completed Influenza Quadravalent, MDCK , 0.5ml, preservative free (Flucelvax) 6mo and older 07/22/2020 [facility] [id number] completed Hepatitis B (Mdcngoe-R-Psrws , Recombivax HB-Adult) 19yo and older 10/27/2019 [facility] [id number] complet ed Influenza trivalent, 0.5mL, preservative free (Fluarix; FluLaval; Fluzone) ages 6mo and older (Afluria) 3 years and older 08/20/2022 [facility] [id number] completed Influenza Quadravalent, MDCK , 0.5ml, preservative free (Flucelvax) 6mo and older 07/09/2019 [facility] [id number] completed Influenza trivalent, 0.5mL, preservative free (Fluarix; FluLaval; Fluzone) ages 6mo and older (Afluria) 3 years and older 07/21/2021 [facility] [id number] completed Moderna SARS-CoV-2 COVID-19, mRNA, LNP-S, preservative free 03/22/2021 [facility] [id number] completed
--- OUTSIDE RECORDS SUMMARY | 2024-11-23 13:38 | XMS_ITS | Encounter Summary ---
Author Organization [facility] Address [address] [place] [address] Care Team Providers Care Covering Machine Operator Helper Name Role Phone Mily Lawrence MD Primary Care Provider [phone] Ralf Gastelum MD Unavailable [phone] Gretchen Juan MD Unavailable [phone] Katherine Snow PA-C Unavailable [phone] Per Leahy PA-C Unavailable [phone] Reason for Visit * Reason Comments E-prescribe Rx Request Encounter Details Date Type Department Care Team Description 04/29/2020 [facility] - [address], [address] [place] [address] Mily Lawrence MD [address] [place] [phone] E-prescribe Rx Request Social History Tobacco [...] Telephone Encounter - Annie Gorman M.A. - 04/29/2020 11:00 AM EDT Lab Results Component Value Date TSH 1.29 07/23/2019 * Telephone Encounter - Layla Jarquin - 04/29/2020 10:27 AM EDT [facility] 04/15/2020 NOV 06/23/2020 documented in this encounter Plan of Treatment Not on file documented as of this encounter Visit Diagnoses Not on filedocumented in this encounter Care Teams Covering Machine Operator Helper Relationship Specialty Start Date End Date Mily Lawrence MD PCP - General Internal Medicine 03/09/19 Ralf Gastelum MD 300 [facility] 154 [place] [address] Specialist Cardiovascular Disease 06/08/22 Gretchen Juan MD 175 [facility] 300 [place] [address] Surgeon Neurosurgery 02/13/23 Katherine Snow PA-C [address] [address] Specialist Neurosurgery 02/13/23 Per Leahy PA-C [address] [address] Specialist Neurosurgery 02/13/23 documented as of this encounter
--- OUTSIDE RECORDS SUMMARY | 2024-11-23 13:38 | XMS_ITS | Encounter Summary ---
Author Organization [facility] Address [address] [place] [address] Care Team Providers Care Hospital Admissions Clerk Name Role Phone Mily Lawrence MD Primary Care Provider Ralf Gastelum MD Unavailable [phone] Gretchen Juan MD Unavailable [phone] Katherine Snow PA-C Unavailable [phone] Per Leahy PA-C Unavailable [phone] Reason for Visit * Reason Comments E-prescribe Rx Request Encounter Details Date Type Department Care Team Description 05/09/2023 Refill [facility] [address] [address] Brian Ferrari MD [address] [place] [id number] E-prescribe Rx Request Social History Tobacco Use [...] leg documented in this encounter Care Teams Hospital Admissions Clerk Relationship Specialty Start Date End Date Mily Lawrence MD PCP - General Internal Medicine 03/09/19 Ralf Gastelum MD [address] [address] Specialist Cardiovascular Disease 06/08/22 Gretchen Juan MD [address] [address] Surgeon Neurosurgery 02/13/23 Katherine Snow PA-C [address] [address] Specialist Neurosurgery 02/13/23 Per Leahy PA-C [address] [address] Specialist Neurosurgery 02/13/23 documented as of this encounter
--- OUTSIDE RECORDS SUMMARY | 2024-11-23 13:38 | XMS_ITS | Encounter Summary ---
Author Organization [facility] Address [address] [place] [address] Care Team Providers Care Powerplant Operator Name Role Phone Mily Lawrence MD Primary Care Provider [phone] Ralf Gastelum MD Unavailable [phone] Gretchen Juan MD Unavailable [phone] Katherine Snow PA-C Unavailable [phone] Per Lehay PA-C Unavailable [phone] Encounter Details Date Type Department Care Team Description 03/13/2023 Pt. Non Urgent Medical Question Internal Medicine - [place] 175 [facility], [address] [place] [address] Mily Lawrence MD [address] [place] [phone] Social History Tobacco Use Types Packs/Day [...] on filedocumented in this encounter Care Teams Powerplant Operator Relationship Specialty Start Date End Date Mily Lawrence MD PCP - General Internal Medicine 03/09/19 Ralf Gastelum MD 300 [facility] [address] [place] [address] Specialist Cardiovascular Disease 06/08/22 Gretchen Juan MD 175 [facility] 300 [place] [address] Surgeon Neurosurgery 02/13/23 Katherine Snow PA-C 175 [facility] 300 [place] [address] Specialist Neurosurgery 02/13/23 Per Leahy PA-C 175 [facility] 300 [place] [address] Specialist Neurosurgery 02/13/23 documented as of this encounter
--- OUTSIDE RECORDS SUMMARY | 2024-11-23 13:38 | XMS_ITS | Encounter Summary ---
Author Organization [facility] Address [address] [place] [address] Care Team Providers Care Prepared Foods Supervisor Name Role Phone Mily Lawrence MD Primary Care Provider Ralf Gastelum MD Unavailable [phone] Gretchen Juan MD Unavailable [phone] Katherine Snow PA-C Unavailable [phone] Per Leahy PA-C Unavailable [phone] Encounter Details Date Type Department Care Team Description 07/10/2024 Telephone [facility] [address] [phone] Brian Ferrari MD [address] [id number] Social History Tobacco Use Types Packs/Day Years [...] at Date Recorded Female 12/24/2022 3:[address] Job Start Date Occupation Industry Not on file Not on file Not on file documented as of this encounter Miscellaneous Notes * Telephone Encounter - Sussy Mcgill NP - 07/13/2024 7:19 AM EDT Rx for predental antibiotics sent to [facility] with 2 refills for future appointments. * Telephone Encounter - Marci Garrido - 07/10/2024 3:34 PM EDT Pt needs predental antibiotics for an upcoming appt [facility] documented in this encounter Plan of Treatment Not on file documented as of this encounter Visit Diagnoses Not on filedocumented in this encounter Care Teams Prepared Foods Supervisor Relationship Specialty Start Date End Date Mily Lawrence MD PCP - General Internal Medicine 03/09/19 Ralf Gastelum MD 300 [facility] [address] [place] [address] Specialist Cardiovascular Disease 06/08/22 Gretchen Juan MD 175 [facility] 300 [place] [address] Surgeon Neurosurgery 02/13/23 Katherine Snow PA-C [address] [address] Specialist Neurosurgery 02/13/23 Per Leahy PA-C [address] [address] Specialist Neurosurgery 02/13/23 documented as of this encounter
--- OUTSIDE RECORDS SUMMARY | 2024-11-23 13:38 | XMS_ITS | Encounter Summary ---
Author Organization [facility] Address [address] [place] [address] Care Team Providers Care Steam Power Plant Operator Name Role Phone Mily Lawrence MD Primary Care Provider [phone] Ralf Gastelum MD Unavailable [phone] Gretchen Juan MD Unavailable [phone] Katherine Snow PA-C Unavailable [phone] Per Leahy PA-C Unavailable [phone] Reason for Visit * Reason Comments E-prescribe Rx Request Encounter Details Date Type Department Care Team Description 06/27/[address] - [address], [address] [place] [address] Mily Lawrence MD [address] [place] [phone] E-prescribe Rx Request Social History Tobacco [...] have Coronavirus / COVID-19? No / Unsure 06/28/2020 10:49 AM EDT documented as of this encounter Miscellaneous Notes * Telephone Encounter - Annie Gorman M.A. - 06/28/2020 1:21 PM EDT No results found for: URBENZO, UROPIATES, URBARBITUATE, PAINAMPHETAM, PAINCOCAINE, PAINCANNABIN Last refill per [facility] was on 12/16/2019 * Telephone Encounter - Kyra Gleason - 06/28/2020 11:05 AM EDT [place] 05/20/2020 NOV 06/28/2020 30 day supply documented in this encounter Plan of Treatment Not on file documented as of this encounter Visit Diagnoses Diagnosis Need for prophylactic vaccination and inoculation against viral hepatitis Mixed hyperlipidemia Essential hypertension, benign Urinary tract infection without hematuria, site unspecified documented in this encounter Care Teams Steam Power Plant Operator Relationship Specialty Start Date End Date Mily Lawrence MD PCP - General Internal Medicine 03/09/19 Ralf Gastelum MD 300 [facility] [address] [place] [address] Specialist Cardiovascular Disease 06/08/22 Gretchen Juan MD 175 [facility] 300 [place] [address] Surgeon Neurosurgery 02/13/23 Katherine Snow PA-C 175 [facility] [address] [place] [address] Specialist Neurosurgery 02/13/23 Per Leahy PA-C [address] [id number] Specialist Neurosurgery 02/13/23 documented as of this encounter
--- OUTSIDE RECORDS SUMMARY | 2024-11-23 13:38 | XMS_ITS | Encounter Summary ---
Author Organization [facility] Address [address] [place] [address] Care Team Providers Care Cottonseed Meat Presser Name Role Phone Mily Lawrence MD Primary Care Provider Ralf Gastelum MD Unavailable [phone] Gretchen Juan MD Unavailable [phone] Katherine Snow PA-C Unavailable [phone] Per Leahy PA-C Unavailable [phone] Encounter Details Date Type Department Care Team Description 08/16/2023 Orders Only OBGYN - 271 [facility] 271 [place] [address] Aparna Edwards, RAMBO [address] [place] [address] Encounter for well woman exam with routine gynecological exam; Screen for STD (sexually transmitted disease) Social History Tobacco Use Types Packs/Day Years [...] Exposure Response Date Recorded In the last 10 days, have yo u been in contact with someone who was confirmed or suspected to have Coronavirus/COVID-19? No / Unsure 2023 3:41 PM EDT documented as of this encounter Plan of Treatment Not on file documented as of this encounter Procedures Procedure Name Priority Date/Time Associated Diagnosis Comments CHLAMYDIA DNA PROBE Routine 08/01/2023 Encounter for well woman exam with routine gynecological exam Screen for STD (sexually transmitted disease) documented in this encounter Results * CHLAMYDIA DNA PROBE (08/01/2023) 08/01/2023 [facility] documented in this encounter Visit Diagnoses Diagnosis Encounter for well woman exam with routine gynecological exam Screen for STD (sexually transmitted disease) Screening examination for venereal disease documented in this encounter Care Teams Cottonseed Meat Presser Relationship Specialty Start Date End Date Mily aLwrence MD PCP - General Internal Medicine 03/09/19 Ralf Gastelum MD 300 [facility] [address] [place] [address] Specialist Cardiovascular Disease 06/08/22 Gretchen Juan MD 175 [facility] 300 [place] [address] Surgeon Neurosurgery 02/13/23 Katherine Snow PA-C 175 [facility] 300 [place] [address] Specialist Neurosurgery 02/13/23 Per Leahy PA-C 175 [facility] [address] [place] [address] Specialist Neurosurgery 02/13/23 documented as of this encounter
--- OUTSIDE RECORDS SUMMARY | 2024-11-23 13:38 | XMS_ITS | Encounter Summary ---
Author Organization [facility] Address [address] [place] [address] Care Team Providers Care Manager Policy Name Role Phone Mily Lawrence MD Primary Care Provider +[phone] Ralf Gastelum MD Unavailable [phone] Gretchen Juan MD Unavailable [phone] Katherine Snow PA-C Unavailable [phone] Per Leahy PA-C Unavailable [phone] Reason for Visit * Reason Comments E-prescribe Rx Request Encounter Details Date Type Department Care Team Description 06/01/2020 [facility] - [address], [address] [place] [address] Mily Lawrence MD [address] [place] [address] E-prescribe Rx Request Social History Tobacco [...] Telephone Encounter - Annie Gorman M.A. - 06/01/2020 3:15 PM EDT No results found for: URBENZO, UROPIATES, URBARBITUATE, PAINAMPHETAM, PAINCOCAINE, PAINCANNABIN Last refill per masspat 01/27/2020 * Telephone Encounter - Natalia Pascual - 06/01/2020 2:59 PM EDT LOGAN: 05/20/2020 NOV: 06/28/2020 30 day supply. documented in this encounter Plan of Treatment Not on file documented as of this encounter Visit Diagnoses Diagnosis Chronic bilateral low back pain without sciatica documented in this encounter Care Teams Manager Policy Relationship Specialty Start Date End Date Mily Lawrence MD PCP - General Internal Medicine 03/09/19 Ralf Gastelum MD 300 [facility] 154 [place] [address] Specialist Cardiovascular Disease 06/08/22 Gretchen Juan MD [address] [address] Surgeon Neurosurgery 02/13/23 Katherine Snow PA-C [address] [address] Specialist Neurosurgery 02/13/23 Per Leahy PA-C 175 [facility] [address] [place] [address] Specialist Neurosurgery 02/13/23 documented as of this encounter
--- OUTSIDE RECORDS SUMMARY | 2024-11-23 13:38 | XMS_ITS | Encounter Summary ---
Author Organization [facility] Address [address] [place] [address] Care Team Providers Care Decal Cutter Name Role Phone Trey Mueller MD Primary Care Provider Unavaila ble Mily Lawrence MD Primary Care Provider [phone] Ralf Gastelum MD Unavailable [phone] Gretchen Juan MD Unavailable [phone] Katherine Snow PA-C Unavailable [phone] Per Leahy PA-C Unavailable [phone] Encounter Details Date Type Department Care Team Description 03/06/2019 Services Program Manager Report Medical Records [address] [place] [address] Magdi Daniel MD [address] [place] [address] [place] [address] Social History Tobacco Use Types Packs/Day Years [...] on filedocumented in this encounter Care Teams Decal Cutter Relationship Specialty Start Date End Date Trey Mueller MD PCP - General Internal Medicine 01/02/19 03/08/19 Mily Lawrence MD PCP - General Internal Medicine 03/09/19 Ralf aGstelum MD 300 [facility] 154 [place] [address] Specialist Cardiovascular Disease 06/08/22 Gretchen Juan MD 175 [facility] 300 [place] [address] Surgeon Neurosurgery 02/13/23 Katherine Snow PA-C 175 [facility] 300 [place] [address] Specialist Neurosurgery 02/13/23 Per Leahy PA-C 175 [facility] 300 [place] [address] Specialist Neurosurgery 02/13/23 documented as of this encounter
--- OUTSIDE RECORDS SUMMARY | 2024-11-23 13:38 | XMS_ITS | Encounter Summary ---
Author Organization [facility] Address [address] [place] [address] Care Team Providers Care Floorwalker Name Role Phone Mily Lawrence MD Primary Care Provider [phone] Ralf Gastelum MD Unavailable [phone] Gretchen Juan MD Unavailable [phone] Katherine Snow PA-C Unavailable [phone] Per Leahy PA-C Unavailable [phone] Encounter Details Date Type Department Care Team Description 07/12/2023 Proof Plate Maker Report Medical Records [address] [place] [address] Sravanthi Doss Social History Tobacco Use Types [...] suspected to have Coronavirus/COVID-19? No / Unsure 07/11/2023 8:59 AM EDT documented as of this encounter Plan of Treatment Not on file documented as of this encounter Visit Diagnoses Not on filedocumented in this encounter Care Teams Floorwalker Relationship Specialty Start Date End Date Mily Lawrence MD PCP - General Internal Medicine 03/09/19 Ralf Gastelum MD 300 [facility] [address] [place] [address] Specialist Cardiovascular Disease 06/08/22 Gretchen Juan MD 175 [facility] 300 [place] [address] Surgeon Neurosurgery 02/13/23 Katherine Snow PA-C [address] [facility] 300 [place] [address] Specialist Neurosurgery 02/13/23 Per Leahy PA-C 175 [facility] 300 [place] [address] Specialist Neurosurgery 02/13/23 documented as of this encounter
--- OUTSIDE RECORDS SUMMARY | 2024-11-23 13:38 | XMS_ITS | Encounter Summary ---
Author Organization [facility] Address [address] [place] [address] Care Team Providers Care Lpn Home Health Name Role Phone Mily Lawrence MD Primary Care Provider [phone] Ralf Gastelum MD Unavailable [phone] Gretchen Juan MD Unavailable [phone] Katherine Snow PA-C Unavailable [phone] Per Leahy PA-C Unavailable [phone] Encounter Details Date Type Department Care Team Description 07/21/2024 Hospital Medical Records [address] [place], [place] [address] [place] [address] Social History Tobacco Use Types Packs/Day Years [...] on filedocumented in this encounter Care Teams Lpn Home Health Relationship Specialty Start Date End Date Mily Lawrence MD PCP - General Internal Medicine 03/09/19 Ralf Gastelum MD 300 [facility] 154 [place] [address] Specialist Cardiovascular Disease 06/08/22 Gretchen Juan MD [address] [address] Surgeon Neurosurgery 02/13/23 Katherine Snow PA-C [address] [address] Specialist Neurosurgery 02/13/23 Per Leahy PA-C [address] [address] Specialist Neurosurgery 02/13/23 documented as of this encounter
--- OUTSIDE RECORDS SUMMARY | 2024-11-23 13:38 | XMS_ITS | Encounter Summary ---
Author Organization [facility] Address [address] [place] [address] Care Team Providers Care Systems Navigator Name Role Phone Mily Lawrence MD Primary Care Provider [phone] Ralf Gastelum MD Unavailable [phone] Gretchen Juan MD Unavailable [phone] Katherine Snow PA-C Unavailable [phone] Per Leahy PA-C Unavailable [phone] Reason for Visit * Reason Comments E-prescribe Rx Request Encounter Details Date Type Department Care Team Description 08/20/2024 Refill [facility] [address] [address] Brian Ferrari MD [address] [place] [address] E-prescribe Rx Request Social History Tobacco Use [...] Sciatica documented in this encounter Care Teams Systems Navigator Relationship Specialty Start Date End Date Mily Lawrence MD PCP - General Internal Medicine 03/09/19 Ralf Gastelum MD 300 [facility] 154 [place] [address] Specialist Cardiovascular Disease 06/08/22 Gretchen Juan MD [address] [address] Surgeon Neurosurgery 02/13/23 Katherine Snow PA-C [address] [address] Specialist Neurosurgery 02/13/23 Per Leahy PA-C [address] [address] Specialist Neurosurgery 02/13/23 documented as of this encounter
--- OUTSIDE RECORDS SUMMARY | 2024-11-23 13:38 | XMS_ITS | Encounter Summary ---
Author Organization [facility] Address [address] [place] [address] Care Team Providers Care Insurance Rater Name Role Phone Mily Lawrence MD Primary Care Provider [phone] Trey Mueller MD Primary Care Provider Unavaila ble Mily Lawrence MD Primary Care Provider [phone] Mily Lawrence MD Primary Care Provider [phone] Ralf Gastelum MD Unavailable [phone] Gretchen Juan MD Unavailable [phone] Katherine Snow PA-C Unavailable [phone] Per Leahy PA-C Unavailable [phone] Encounter Details Date Type Department Care Team Description 11/01/2016 SCAN Medical Records [address] [place] [address] Dick Marte MD Social History Tobacco Use Types Packs/Day Years Used Date Smoking Tobacco: Never Assessed Intimate Partner Violence Answer Date R ecorded [...] Name Priority Date/Time Associated Diagnosis Comments OUTSIDE VASCULAR STUDY Routine 11/01/2016 documented in this encounter Results * OUTSIDE VASCULAR STUDY (11/01/2016) Provider Default CARDIOLOGY documented in this encounter Visit Diagnoses Not on filedocumented in this encounter Care Teams Insurance Rater Relationship Specialty Start Date End Date Mily Lawrence MD PCP - General Internal Medicine 03/13/17 01/01/19 Trey Mueller MD PCP - General Internal Medicine 01/02/19 03/08/19 Mily Lawrence MD PCP - General Internal Medicine 03/09/19 Mily Lawrence MD PCP - General 09/24/16 03/12/17 Ralf Gastelum MD 300 [facility] [address] [place] [address] Specialist Cardiovascular Disease 06/08/22 Gretchen Juan MD 175 [facility] 300 [place] [address] Surgeon Neurosurgery 02/13/23 Katherine Snow PA-C 175 [facility] 300 [place] [address] Specialist Neurosurgery 02/13/23 Per Leahy PA-C 175 [facility] 300 [place] [address] Specialist Neurosurgery 02/13/23 documented as of this encounter
--- OUTSIDE RECORDS SUMMARY | 2024-11-23 13:38 | XMS_ITS | Encounter Summary ---
Author Organization [facility] Address [address] [place] [address] Care Team Providers Care Psychologist Developmental Name Role Phone Mily Lawrence MD Primary Care Provider [phone] Ralf Gastelum MD Unavailable [phone] Gretchen Juan MD Unavailable [phone] Katherine Snow PA-C Unavailable [phone] Per Leahy PA-C Unavailable [phone] Encounter Details Date Type Department Care Team Description 04/14/2024 Hospital Medical Records [address] [place] [id number] [place] [address] Social History Tobacco Use Types Packs/Day Years [...] Name Priority Date/Time Associated Diagnosis Comments OUTSIDE EKG Routine 04/14/2024 documented in this encounter Results * OUTSIDE EKG (04/14/2024) Provider Default CARDIOLOGY documented in this encounter Visit Diagnoses Not on filedocumented in this encounter Care Teams Psychologist Developmental Relationship Specialty Start Date End Date Mily Lawrence MD PCP - General Internal Medicine 03/09/19 Ralf Gastelum MD 300 [facility] [address] [place] [address] Specialist Cardiovascular Disease 06/08/22 Gretchen Juan MD [address] [facility] 300 [place] [address] Surgeon Neurosurgery 02/13/23 Katherine Snow PA-C 175 [facility] 300 [place] [address] Specialist Neurosurgery 02/13/23 Per Leahy PA-C 175 [facility] 300 [place] [address] Specialist Neurosurgery 02/13/23 documented as of this encounter
--- OUTSIDE RECORDS SUMMARY | 2024-11-23 13:38 | XMS_ITS | Encounter Summary ---
Author Organization [facility] Address [address] [place] [address] Care Team Providers Care Microarray Specialist Name Role Phone Mily Lawrence MD Primary Care Provider [phone] Ralf Gastelum MD Unavailable [phone] Gretchen Juan MD Unavailable [phone] Katherine Snow PA-C Unavailable [phone] Per Leahy PA-C Unavailable [phone] Encounter Details Date Type Department Care Team Description 05/14/2024 Pt. Non Urgent Medical Question Internal Medicine - [place] 175 [facility], [address] [place] [address] Mily Lawrence MD [address] [place] [address] Social History Tobacco Use Types Packs/Day [...] on filedocumented in this encounter Care Teams Microarray Specialist Relationship Specialty Start Date End Date Mily Lawrence MD PCP - General Internal Medicine 03/09/19 Ralf Gastelum MD 300 [facility] [address] [place] [address] Specialist Cardiovascular Disease 06/08/22 Gretchen Juan MD 175 [facility] 300 [place] [address] Surgeon Neurosurgery 02/13/23 Katherine Snow PA-C 175 [facility] 300 [place] [address] Specialist Neurosurgery 02/13/23 Per Leahy PA-C 175 [facility] 300 [place] [address] Specialist Neurosurgery 02/13/23 documented as of this encounter
--- OUTSIDE RECORDS SUMMARY | 2024-11-23 13:38 | XMS_ITS | Encounter Summary ---
Author Organization [facility] Address [address] [place] [address] Care Team Providers Care Income Tax Manager Name Role Phone Mily Lawrence MD Primary Care Provider Ralf Gastelum MD Unavailable [phone] Gretchen Juan MD Unavailable [phone] Katherine Snow PA-C Unavailable [phone] Per Leayh PA-C Unavailable Encounter Details Date Type Department Care Team Description 02/14/2023 SCAN [facility] Medical [facility] Neurosurgery [place] [address] [id number] Per Leahy PA-C [address] [id number] Social History Tobacco Use Types Packs/Day Years [...] on filedocumented in this encounter Care Teams Income Tax Manager Relationship Specialty Start Date End Date Mily Lawrence MD PCP - General Internal Medicine 03/09/19 Ralf Gastelum MD 300 [facility] 154 [place] [address] Specialist Cardiovascular Disease 06/08/22 Gretchen Juan MD 175 [facility] 300 [place] [address] Surgeon Neurosurgery 02/13/23 Katherine Snow PA-C 175 [facility] 300 [place] [address] Specialist Neurosurgery 02/13/23 Per Leahy PA-C 175 [facility] 300 [place] [address] Specialist Neurosurgery 02/13/23 documented as of this encounter
--- OUTSIDE RECORDS SUMMARY | 2024-11-23 13:39 | XMS_ITS | Encounter Summary ---
Author Organization [facility] Address [address] [place] [address] Care Team Providers Care Physical Therapist Center Manager Name Role Phone Mily Lawrence MD Primary Care Provider [phone] Ralf Gastelum MD Unavailable [phone] Gretchen Juan MD Unavailable [phone] Katherine Snow PA-C Unavailable [phone] Per Leahy PA-C Unavailable [phone] Reason for Visit * Reason Onset Date Comments Imaging Review 12/11/2023 R shoulder MRI Encounter Details Date Type Department Care Team Description 12/11/2023 Telephone [facility] [address] [place] [phone] Salma Elizalde APRN Imaging Review (R shoulder MRI) Social History Tobacco Use Types Packs/Day Years [...] encounter Miscellaneous Notes * Telephone Encounter - Marci Garrido - 12/17/2023 11:48 AM EST Pt will keep appt with you documented in this encounter Plan of Treatment Not on file documented as of this encounter Visit Diagnoses Not on filedocumented in this encounter Care Teams Physical Therapist Center Manager Relationship Specialty Start Date End Date Mily Lawrence MD PCP - General Internal Medicine 03/09/19 Ralf Gastelum MD 300 [facility] [address] [place] [address] Specialist Cardiovascular Disease 06/08/22 Gretchen Juan MD 175 [facility] 300 [place] [address] Surgeon Neurosurgery 02/13/23 Katherine Snow PA-C 175 [facility] 300 [place] [address] Specialist Neurosurgery 02/13/23 Per Leahy PA-C 175 [facility] 300 [place] [address] Specialist Neurosurgery 02/13/23 documented as of this encounter
--- OUTSIDE RECORDS SUMMARY | 2024-11-23 13:39 | XMS_ITS | Encounter Summary ---
Author Organization [facility] Address [address] [place] [address] Care Team Providers Care Male Model Name Role Phone Mily Lawrence MD Primary Care Provider +[phone] Ralf Gastelum MD Unavailable [phone] Gretchen Juan MD Unavailable [phone] Katherine Snow PA-C Unavailable [phone] Per Leahy PA-C Unavailable [phone] Encounter Details Date Type Department Care Team Description 11/02/2020 Orders Only Medical Records [address] [place] [address] Mily Lawrence MD [address] [place] [address] Social History Tobacco Use Types Packs/Day [...] have Coronavirus / COVID-19? No / Unsure 10/28/2020 2:44 PM EST documented as of this encounter Plan of Treatment Not on file documented as of this encounter Procedures Procedure Name Priority Date/Time Associated Diagnosis Comments OUTSIDE MAMMO Routine 11/02/2020 documented in this encounter Results * OUTSIDE MAMMO (11/02/2020) Mily Lawrence MD RADIOLOGY documented in this encounter Visit Diagnoses Not on filedocumented in this encounter Care Teams Male Model Relationship Specialty Start Date End Date Mily Lawrence MD PCP - General Internal Medicine 03/09/19 Ralf Gastelum MD 300 [facility] [address] [place] [address] Specialist Cardiovascular Disease 06/08/22 Gretchen Juan MD [address] [address] Surgeon Neurosurgery 02/13/23 Katherine Snow PA-C 175 [facility] 300 [place] [address] Specialist Neurosurgery 02/13/23 Per Leahy PA-C 175 [facility] 300 [place] [address] Specialist Neurosurgery 02/13/23 documented as of this encounter
--- OUTSIDE RECORDS SUMMARY | 2024-11-23 13:39 | XMS_ITS | Encounter Summary ---
Author Organization [facility] Address [address] [place] [address] Care Team Providers Care Human Resources Operations Manager Name Role Phone Mily Lawrence MD Primary Care Provider [phone] Ralf Gastelum MD Unavailable [phone] Gretchen Juan MD Unavailable [phone] Katherine Snow PA-C Unavailable [phone] Per Leahy PA-C Unavailable [phone] Encounter Details Date Type Department Care Team Description 09/08/2020 Orders Only Medical Records [address] [place] [address] Mily Lawrence MD [address] [place] [phone] Social History Tobacco Use Types Packs/Day [...] as of this encounter Progress Notes * Kendal Jeronimo R.N. - 09/09/2020 10:14 AM EST Letter printed and mailed to patient. documented in this encounter Plan of Treatment Not on file documented as of this encounter Procedures Procedure Name Priority Date/Time Associated Diagnosis Comments OUTSIDE MAMMO Routine 09/07/2020 documented in this encounter Results * OUTSIDE MAMMO (09/07/2020) Mily Lawrence MD RADIOLOGY documented in this encounter Visit Diagnoses Not on filedocumented in this encounter Care Teams Human Resources Operations Manager Relationship Specialty Start Date End Date Mily Lawrence MD PCP - General Internal Medicine 03/09/19 Ralf Gastelum MD 300 [facility] [address] [place] [address] Specialist Cardiovascular Disease 06/08/22 Gretchen Juan MD 175 [facility] 300 [place] [address] Surgeon Neurosurgery 02/13/23 Katherine Snow PA-C 175 [facility] 300 [place] [address] Specialist Neurosurgery 02/13/23 Per Leahy PA-C 175 [facility] 300 [place] [address] Specialist Neurosurgery 02/13/23 documented as of this encounter
--- OUTSIDE RECORDS SUMMARY | 2024-11-23 13:39 | XMS_ITS | Encounter Summary ---
Author Organization [facility] Address [address] [place] [address] Care Team Providers Care Applications Development Analyst Name Role Phone Mily Lawrence MD Primary Care Provider +1 [phone] Ralf Gastelum MD Unavailable [phone] Gretchen Juan MD Unavailable [phone] Katherine Snow PA-C Unavailable [phone] Per Leahy PA-C Unavailable [phone] Reason for Visit * Reason Comments E-prescribe Rx Request Encounter Details Date Type Department Care Team Description 10/19/[address] [facility] Internal Medicine - [address], [address] [place] [address] Mily Lawrence MD [address] [place] [phone] E-prescribe Rx Request Social History Tobacco [...] encounter Miscellaneous Notes * Telephone Encounter - Layla Jarquin - 10/19/2020 1:11 PM EST Jadon 06/28/2020 Nov 10/28/2020 documented in this encounter Plan of Treatment Not on file documented as of this encounter Visit Diagnoses Diagnosis Need for prophylactic vaccination and inoculation against viral hepatitis Mixed hyperlipidemia Essential hypertension, benign Urinary tract infection without hematuria, site unspecified documented in this encounter Care Teams Applications Development Analyst Relationship Specialty Start Date End Date Mily Lawrence MD PCP - General Internal Medicine 03/09/19 Ralf Gastelum MD 300 [facility] 154 [place] [address] Specialist Cardiovascular Disease 06/08/22 Gretchen Juan MD [address] [address] Surgeon Neurosurgery 02/13/23 Katherine Snow PA-C 175 [facility] 300 [place] [address] Specialist Neurosurgery 02/13/23 Per Leahy PA-C [address] [address] Specialist Neurosurgery 02/13/23 documented as of this encounter
--- OUTSIDE RECORDS SUMMARY | 2024-11-23 13:39 | XMS_ITS | Encounter Summary ---
Author Organization [facility] Address [address] [place] [address] Care Team Providers Care Snapper On Name Role Phone Mily Lawrence MD Primary Care Provider [phone] Ralf Gastelum MD Unavailable [phone] Gretchen Juan MD Unavailable [phone] Katherine Snow PA-C Unavailable [phone] Per Leahy PA-C Unavailable [phone] Encounter Details Date Type Department Care Team Description 01/28/2024 Lighting Engineering Technician Report Medical Records [address] [place] [address] Sravanthi Doss Social History Tobacco Use Types [...] on filedocumented in this encounter Care Teams Snapper On Relationship Specialty Start Date End Date Mily Lawrence MD PCP - General Internal Medicine 03/09/19 Ralf Gastelum MD 300 [facility] [address] [place] [address] Specialist Cardiovascular Disease 06/08/22 Gretchen Juan MD 175 [facility] [address] [place] [address] Surgeon Neurosurgery 02/13/23 Katherine Snow PA-C 175 [facility] 300 [place] [address] Specialist Neurosurgery 02/13/23 Per Leahy PA-C 175 [facility] 300 [place] [address] Specialist Neurosurgery 02/13/23 documented as of this encounter
--- OUTSIDE RECORDS SUMMARY | 2024-11-23 13:39 | XMS_ITS | Encounter Summary ---
Author Organization [facility] Address [address] [place] [address] Care Team Providers Care Radial Arm Saw Operator Name Role Phone Mily Lawrence MD Primary Care Provider Ralf Gastelum MD Unavailable [phone] Gretchen Juan MD Unavailable [phone] Katherine Snow PA-C Unavailable [phone] Per Leahy PA-C Unavailable [phone] Reason for Visit * Reason Onset Date Comments Form 01/02/2024 Encounter Details Date Type Department Care Team Description 01/02/2024 Telephone [facility] [address] [address] Brian Ferrari MD [address] [address] Form Social History Tobacco Use Types Packs/Day [...] encounter Miscellaneous Notes * Telephone Encounter - Nora Vaughn - 01/02/2024 3:43 PM EDT I faxed the form to [facility] * Telephone Encounter - Sussy Mcgill NP - 01/02/2024 1:54 PM EDT Form is all set and antibiotic sent to pharmacy. We can fax the form over to her dental office and I called patient to let her know. * Telephone Encounter - Walter Momin - 01/02/2024 11:48 AM EDT Hello and good morning. Today Ange came to the office to drop off a Dental form she needs Dr. Ferrari to fill out and she also requests a clearance form from the doctor to have dental work done. Callwith any questions and/or when item(s) are available to filler picker: [phone]. Thanks, DH documented in this encounter Plan of Treatment Not on file documented as of this encounter Visit Diagnoses Not on filedocumented in this encounter Care Teams Radial Arm Saw Operator Relationship Specialty Start Date End Date Mily Lawrence MD PCP - General Internal Medicine 03/09/19 Ralf Gastelum MD 300 [place] [address] Specialist Cardiovascular Disease 06/08/22 Gretchen Juan MD [address] [id number] Surgeon Neurosurgery 02/13/23 Katherine Snow PA-C [address] [address] Specialist Neurosurgery 02/13/23 Per Leahy PA-C 175 [facility] [address] [place] [address] Specialist Neurosurgery 02/13/23 documented as of this encounter
--- OUTSIDE RECORDS SUMMARY | 2024-11-23 13:39 | XMS_ITS | Encounter Summary ---
Author Organization [facility] Address [address] [place] [address] Care Team Providers Care Fishing Captain Name Role Phone Mily Lawrence MD Primary Care Provider [phone] Ralf Gastelum MD Unavailable [phone] Gretchen Juan MD Unavailable [phone] Katherine Snow PA-C Unavailable [phone] Per Leahy PA-C Unavailable [phone] Encounter Details Date Type Department Care Team Description 07/22/2020 Telephone Adult [address] [phone] Mily Lawrence MD [address] [place] [phone] Social History Tobacco Use Types Packs/Day [...] have Coronavirus / COVID-19? No / Unsure 07/22/2020 11:06 AM EDT documented as of this encounter Plan of Treatment Not on file documented as of this encounter Visit Diagnoses Not on filedocumented in this encounter Care Teams Fishing Captain Relationship Specialty Start Date End Date Mily Lawrence MD PCP - General Internal Medicine 03/09/19 Ralf Gastelum MD [address] [address] Specialist Cardiovascular Disease 06/08/22 Gretchen Juan MD [address] [address] Surgeon Neurosurgery 02/13/23 Katherine Snow PA-C [address] [address] Specialist Neurosurgery 02/13/23 Per Leahy PA-C [address] [address] Specialist Neurosurgery 02/13/23 documented as of this encounter
--- OUTSIDE RECORDS SUMMARY | 2024-11-23 13:39 | XMS_ITS | Encounter Summary ---
Author Organization [facility] Address [address] [place] [address] Care Team Providers Care Chief Of Anesthesiology Name Role Phone Mily Lawrence MD Primary Care Provider Ralf Gastelum MD Unavailable [phone] Gretchen Juan MD Unavailable [phone] Katherine Snow PA-C Unavailable [phone] Per Leahy PA-C Unavailable [phone] Encounter Details Date Type Department Care Team Description 02/03/2024 Pt. Non Urgent Medical Question [facility] [address] [phone] Ralf [place] DPM [address] [phone] Social History Tobacco Use Types Packs/Day Years [...] filedocumented in this encounter Care Teams Chief Of Anesthesiology Relationship Specialty Start Date End Date Mily Lawrence MD PCP - General Internal Medicine 03/09/19 Ralf Gastelum MD 300 [facility] 154 [place] [address] Specialist Cardiovascular Disease 06/08/22 Gretchen Juan MD 175 [facility] 300 [place] [address] Surgeon Neurosurgery 02/13/23 Katherine Snow PA-C 175 [facility] 300 [place] [address] Specialist Neurosurgery 02/13/23 Per Leahy PA-C 175 [facility] 300 [place] [address] Specialist Neurosurgery 02/13/23 documented as of this encounter
--- OUTSIDE RECORDS SUMMARY | 2024-11-23 13:39 | XMS_ITS | Encounter Summary ---
Author Organization [facility] Address [address] [place] [address] Care Team Providers Care Security Assistant Name Role Phone Mily Lawrence MD Primary Care Provider [phone] Ralf Gastelum MD Unavailable [phone] Gretchen Juan MD Unavailable [phone] Katherine Snow PA-C Unavailable [phone] Per Leahy PA-C Unavailable [phone] Encounter Details Date Type Department Care Team Description 01/09/2024 Receiving Associate Store Report Medical Records [address] [place] [id number] Evelio Simth Social History Tobacco Use Types Packs/Day Years [...] on filedocumented in this encounter Care Teams Security Assistant Relationship Specialty Start Date End Date Mily Lawrence MD PCP - General Internal Medicine 03/09/19 Ralf Gastelum MD 300 [facility] [address] [place] [address] Specialist Cardiovascular Disease 06/08/22 Gretchen Juan MD 175 [facility] 300 [place] [address] Surgeon Neurosurgery 02/13/23 Katherine Snow PA-C 175 [facility] 300 [place] [address] Specialist Neurosurgery 02/13/23 Per Leahy PA-C 175 [facility] 300 [place] [address] Specialist Neurosurgery 02/13/23 documented as of this encounter
--- OUTSIDE RECORDS SUMMARY | 2024-11-23 13:39 | XMS_ITS | Encounter Summary ---
Author Organization [facility] Address [address] [place] [address] Care Team Providers Care Telephone Collector Name Role Phone Mily Lawrence MD Primary Care Provider Ralf Gastelum MD Unavailable [phone] Gretchen Juan MD Unavailable [phone] Katherine Snow PA-C Unavailable [phone] Per Leahy PA-C Unavailable [phone] Encounter Details Date Type Department Care Team Description 08/18/2020 Orders Only Gastroenterology - [address] [place] [phone] Guillaume Casey MD Pelvic floor dysfunction in female; Pelvic floor weakness in female; Rectocele Social History Tobacco Use Types Packs/Day Years [...] have Coronavirus / COVID-19? No / Unsure 08/03/2020 1:20 PM EDT documented as of this encounter Plan of Treatment Not on file documented as of this encounter Procedures Procedure Name Priority Date/Time Associated Diagnosis Comments DEFECOGRAPHY (DYNAMIC RECTAL EXAMINATION) Routine 07/27/2020 Pelvic floor dysfunction in female Pelvic floor weakness in female Rectocele documented in this encounter Results * DEFECOGRAPHY (DYNAMIC RECTAL EXAMINATION) (07/27/2020) Guillaume Casey MD OUTSIDE RADIOLOGY documented in this encounter Visit Diagnoses Diagnosis Pelvic floor dysfunction in female Pelvic floor weakness in female Other specified genital prolapse Rectocele documented in this encounter Care Teams Telephone Collector Relationship Specialty Start Date End Date Mily Lawrence MD PCP - General Internal Medicine 03/09/19 Ralf Gastelum MD 300 [facility] [address] [place] [address] Specialist Cardiovascular Disease 06/08/22 Gretchen Juan MD 175 [facility] 300 [place] [address] Surgeon Neurosurgery 02/13/23 Katherine Snow PA-C 175 [facility] 300 [place] [address] Specialist Neurosurgery 02/13/23 Per Leahy PA-C 175 [facility] 300 [place] [address] Specialist Neurosurgery 02/13/23 documented as of this encounter
--- OUTSIDE RECORDS SUMMARY | 2024-11-23 13:39 | XMS_ITS | Encounter Summary ---
Author Organization [facility] Address [address] [place] [address] Care Team Providers Care Blasting Miner Name Role Phone Mily Lawrence MD Primary Care Provider [phone] Ralf Gastelum MD Unavailable [phone] Gretchen Juan MD Unavailable [phone] Katherine Snow PA-C Unavailable [phone] Per Leahy PA-C Unavailable [phone] Reason for Visit * Reason Comments E-prescribe Rx Request Encounter Details Date Type Department Care Team Description 07/28/2020 [facility] Internal Medicine - [address], [address] [place] [address] Mily Lawrence MD [address] [place] [phone] E-prescribe Rx Request Social History Tobacco [...] Telephone Encounter - Annie Gorman M.A. - 07/28/2020 10:31 AM EDT Lab Results Component Value Date NA 139 06/28/2020 K 4.3 06/28/2020 CO2 28 06/28/2020 CL 105 06/28/2020 BUN 21 06/28/2020 CREAT 1.00 06/28/2020 GLU 98 06/28/2020 ALB 4.0 06/28/2020 SGOT 36 06/28/2020 SGPT 59 06/28/2020 TBILI 0.5 06/28/2020 ALKPHOS 58 06/28/2020 TP 8.0 06/28/2020 CA 9.8 06/28/2020 GFR 58 06/28/2020 * Telephone Encounter - Rosa Toht - 07/28/2020 9:10 AM EDT LOGAN - ..2019 NOV - 10.28.2020 Refills - 1 documented in this encounter Plan of Treatment Not on file documented as of this encounter Visit Diagnoses Not on filedocumented in this encounter Care Teams Blasting Miner Relationship Specialty Start Date End Date Mily Lawrence MD PCP - General Internal Medicine 03/09/19 Ralf Gastelum MD [address] [place] [address] Specialist Cardiovascular Disease 06/08/22 Gretchen Juan MD [address] [address] Surgeon Neurosurgery 02/13/23 Katherine Snow PA-C [address] [address] Specialist Neurosurgery 02/13/23 Per Leahy PA-C 175 [facility] [address] [place] [address] Specialist Neurosurgery 02/13/23 documented as of this encounter
--- OUTSIDE RECORDS SUMMARY | 2024-11-23 13:39 | XMS_ITS | Encounter Summary ---
Author Organization [facility] Address [address] [place] [address] Care Team Providers Care Wirer Street Light Name Role Phone Mily Lawrence MD Primary Care Provider [phone] Ralf Gastelum MD Unavailable [phone] Gretchen Juan MD Unavailable [phone] Katherine Snow PA-C Unavailable [phone] Per Leahy PA-C Unavailable [phone] Reason for Visit * Reason Onset Date Comments injection 01/06/2024 R US GH injectio n Encounter Details Date Type Department Care Team Description 01/06/2024 Telephone [facility] [address] [place] [phone] Salma Elizalde APRN injection ( R US GH injection) Social History Tobacco Use Types Packs/Day Years [...] encounter Miscellaneous Notes * Telephone Encounter - Staci Canseco - 01/07/2024 10:03 AM EDT Called pt at [phone], no answer. Unable to leave , mailbox full. If pt calls back, it is okay to schedule her for next available US guided inj with Dr Kenney. documented in this encounter Plan of Treatment Not on file documented as of this encounter Visit Diagnoses Not on filedocumented in this encounter Care Teams Wirer Street Light Relationship Specialty Start Date End Date Mily Lawrence MD PCP - General Internal Medicine 03/09/19 Ralf Gastelum MD 300 [facility] [address] [place] [address] Specialist Cardiovascular Disease 06/08/22 Gretchen Juan MD [address] [address] Surgeon Neurosurgery 02/13/23 Katherine Snow PA-C 175 [facility] 300 [place] [address] Specialist Neurosurgery 02/13/23 Per Leahy PA-C 175 [facility] 300 [place] [address] Specialist Neurosurgery 02/13/23 documented as of this encounter
--- OUTSIDE RECORDS SUMMARY | 2024-11-23 13:39 | XMS_ITS | Clinical Summary ---
Author Organization [facility] Address [address] [place] [address] Care Team Providers Care Change Management Analyst Name Role Phone Mily Lawrence MD Primary Care Provider [phone] Allergies Active Allergy Reactions Criticality Noted Date Comments Sulfa Antibiotics Rash Medium 01/26/2015 Other reaction(s): HIVES Tape Other (See Comments) Medium 01/04/2021 Other reaction(s): Rash/Dermatitis Paper tape Medications Medication Sig Dispensed Refills Start Date End Date Status Ubrelvy 100 MG TABS PLEASE SEE ATTACHED FOR DETAILED DIRECTIONS 0 05/12/2024 Active thiamine (VITAMIN B-1) 100 MG tablet TAKE 2 AND 1/2 TABS BY MOUTH EVERY DAY 0 05/13/2024 Active pyridoxine (B-6) 250 MG tablet 0 03/05/2024 Active sertraline (ZOLOFT) 100 MG tablet Take 1 tablet (100 mg total) by mouth daily. 0 11/12/2023 Active Cholecalciferol (Vitamin D3) 50 MCG (2000 UT) capsule Take by mouth daily. 0 04/12/2024 Active clotrimazole (LOTRIMIN) 1 % cream APPLY TO SKIN AND TOENAILS DAILY FOR 12 WEEKS 0 03/26/2024 Active Diclofenac Sodium 1 % GEL Apply 4 g topically. 0 02/21/2022 Active fluticasone (Flonase Allergy Relief) 50 MCG/ACT nasal spray spray or apply inside Nose. 0 02/19/2008 Active gabapentin (NEURONTIN) 300 MG capsule Take 1 capsule (300 mg total) by mouth 2 (two) times a day. 1 tab in am; 2 at night 0 09/17/2017 Active galcanezumab-gnlm (EMGALITY) 120 MG/ML injection Inject under the skin. never received 0 Active Incontinence Supply Disposable ([facility] Incontinence Pads) MISC 1 Units by Does not apply route. 0 02/17/2019 Active loratadine (CLARITIN) 10 MG tablet Take 1 tablet (10 mg total) by mouth daily as needed. 0 02/19/2008 Active melatonin 3 MG TABS tablet Take 1 tablet (3 mg total) by mouth every night at bedtime. 0 05/13/2024 Active metoprolol tartrate (LOPRESSOR) 50 MG tablet Take 1 tablet (50 mg total) by mouth 2 (two) times a day. 0 05/13/2024 Active Multiple Vitamin (Daily-Michelle Multivitamin) TABS Take 1 tablet by mouth daily. 0 05/13/2024 Active nystatin (MYCOSTATIN) ointment APPLY TOPICALLY TO AFFECTED AREAS TWICE A DAY FOR 10 DAYS 0 05/12/2024 Active omeprazole (PriLOSEC) 20 MG capsule Take 1 capsule (20 mg total) by mouth daily as needed. 0 05/13/2024 Active oxybutynin (DITROPAN-XL) 10 MG 24 hr tablet Take 1 tablet (10 mg total) by mouth daily. 0 05/13/2024 Active polyethylene glycol (GLYCOLAX) 17 GM/SCOOP powder Take 17 g by mouth daily as needed. 0 05/10/2021 Active acetaminophen (TYLENOL) 325 MG tablet Take 2 tablets (650 mg total) by mouth every 6 (six) hours as needed (for any level of discomfort). 90 tablet 0 07/21/2024 Active methocarbamol (ROBAXIN) 750 MG tablet Take 1 tablet (750 mg total) by mouth every 6 (six) hours as needed. 45 tablet 0 07/21/2024 Active oxyCODONE (ROXICODONE) 5 MG immediate release tablet Take 1 tablet (5 mg total) by mouth every 4 (four) hours as needed. 30 tablet 0 07/21/2024 Active senna (SENOKOT) 8.6 MG tablet Take 1 tablet by mouth 2 (two) times a day. 20 tablet 0 07/21/2024 Active methylPREDNISolone (MEDROL DOSEPACK) 4 MG tablet follow package directions 21 tablet 0 07/21/2024 Active Active Problems Problem Noted Date Diagnosed Date DDD (degenerative disc disease), lumbar 07/16/20 24 Class 2 obesity 07/02/2024 Family History Medical History Relation Name Comments Arthritis Father HOWARD Drug abuse Father HOWARD Kidney disease Father HOWARD Cancer Maternal Aunt breast Arthritis Mother KRZYSZTOF COPD Mother KRZYSZTOF Cancer Mother KRZYSZTOF breast in 30s a nd 40s Hypertension Mother KRZYSZTOF Kidney disease Mother KRZYSZTOF Kidney failure Mother KRZYSZTOF Relation Name Status Comments Father HOWARD (Age ?) Maternal Aunt Mother KRZYSZTOF (Age 77) Social History Tobacco Use Types Packs/Day Years Used Date Smoking Tobacco: Never Smokeless Tobacco: Former Tobacco Cessation:Counseling Given: Not Answered Alcohol Use Standard Drinks/Week Comments Yes 2 (1 standard drink = 0.6 oz pur e alcohol) weekend Sex and Gender Information Value Date Recorded Sex Assigned at Female 05/26/2023 1:09 PM EDT Gender Identity Female 06/25/2024 11:33 AM EDT Sexual Orientation Not on file Job Start Date Occupation Industry Not on file Not on file Not on file Last Filed Vital Signs Vital Sign Reading Time Taken Comments Blood Pressure 151/100 08/18/2024 4:15 PM EDT Pulse 85 08/18/2024 4:15 PM EDT Temperature 36.6 ??C (97.8 ??F) 08/18/2024 4:15 PM ED T Respiratory Rate 20 07/21/2024 7:58 AM EDT Oxygen Saturation 97% 08/18/2024 4:15 PM EDT Inhaled Oxygen Concentration - - Weight 95.3 kg (210 lb) 08/18/2024 4:15 PM EDT Height 170.2 cm (5' 7 ) 08/18/2024 4:15 PM EDT Body Mass Index 32.89 08/18/2024 4:15 PM EDT Plan of Treatment Health Maintenance Due Date Last Done Comments Hepatitis C Screening 1967 COVID-19 Vaccine (#1) 02/07/1968 Depression Screening 1979 BMI Counseling 1985 Preventative Health Evaluation 1985 DTap / Tdap / Td (1 - Tdap) 1986 Cervical Cancer Screening (Pap Smear) 1988 Colon Cancer Screening (Colonoscopy) 2012 Breast Cancer Screening (Mammogram) 2017 Shingrix-Zoster Vaccine (1 o f 2) 2017 Influenza Vaccine (#1) 2024 0, 07/09/2019, 11/15/2017 Pneumococcal Vaccine Aged Out 02/05/2008 No long er eligible based on patient's age to complete this topic Hepatitis B Vaccines Completed 10/27/2019, 05/26/2019, 04/22/2019 RSV Ped < 20 months Aged Out No longe r eligible based on patient's age to complete this topic Medical Devices Implanted Type Area Community Health Consultant Device Identifier Shelf Expiration Date Model / Serial / Lot Putty Vesuvius 100 5ml Stry-K2m [id number] - [id number] Implanted:Qty: 1 on 07/16/2024 by Nathan Hayward MD at [facility] and Med Lateral: Spine Lumbar LAXMI SPINE 02/17/2027 [id number] / [id number] / Bone Graft Spine Infus Xsm Medt-Sofa [id number] - [id number] Implanted:Qty: 1 on 07/16/2024 by Nathan Hayward MD at [facility] and Med Lateral: Spine Lumbar MEDTRONIC SOFAMOR DANEK 11/20/2025 [id number] / / [id number] Lund Interbody System Implanted:Qty: 1 on 07/16/2024 by Nathan Hayward MD at [facility] and Med Lateral: Spine Lumbar LAXMI - MEDICAL 10/30/2028 [id number] / / [id number] Plate [facility] 2hl 18mm Stry-K2m [id number] - [id number] Implanted:Qty: 1 on 07/16/2024 by Nathan Hayward MD at [facility] and Med Lateral: Spine Lumbar LAXMI SPINE [id number] / / 5.0x40mm Screw Implanted:Qty: 2 on 07/16/2024 by Nathan Hayward MD at [facility] and Med Lateral: Spine Lumbar LAXMI - MEDICAL [id number] / / Plate Assembly Screw Implanted:Qty: 1 on 07/16/2024 by Nathan Hayward MD at [facility] and Med Lateral: Spine Lumbar LAXMI - MEDICAL [id number] / / Advance Directives For more information, please contact: [phone] Latest Code Status on File Code Status Date Activated Date Inactivated Comments Full Code 07/16/2024 5:51 PM 07/21/2024 7:02 PM This code status was ascertained in the following way: discussion with patient . Code Status History Code Status Date Activated Date Inactivated Comments Full Code 07/16/2024 11:08 AM 07/16/2024 5:51 PM This code status was ascertained in the following way: discussion with patient . Care Teams Change Management Analyst Relationship Specialty Start Date End Date Mily Lawrence MD [address] [place] [phone] PCP - General Internal Medicine 06/12/17
--- OUTSIDE RECORDS SUMMARY | 2024-11-23 13:39 | XMS_ITS | Encounter Summary ---
Author Organization [facility] Address [address] [place] [address] Care Team Providers Care Song Writer Name Role Phone Mily Lawrence MD Primary Care Provider Ralf Gastelum MD Unavailable [phone] Gretchen Juan MD Unavailable [phone] Katherine Snow PA-C Unavailable [phone] Per Leahy PA-C Unavailable [phone] Reason for Visit * Reason Onset Date Comments Surgery (Schedule) 11/25/2023 Encounter Details Date Type Department Care Team Description 11/25/2023 Telephone [facility] [address] [phone] Brian Ferrari MD [address] [address] Surgery (Schedule) Social History Tobacco Use Types Packs/Day Years [...] encounter Miscellaneous Notes * Telephone Encounter - Johana Reis - 11/25/2023 3:51 PM EST Hello- Patient called looking to proceed with her joint replacement. Can you enter the order. Thanks, Johana documented in this encounter Plan of Treatment Not on file documented as of this encounter Visit Diagnoses Diagnosis Primary osteoarthritis of left knee- Primary Primary localized osteoarthrosis, lower leg documented in this encounter Care Teams Song Writer Relationship Specialty Start Date End Date Mily Lawrence MD PCP - General Internal Medicine 03/09/19 Ralf Gastelum MD [address] [facility] [address] [place] [address] Specialist Cardiovascular Disease 06/08/22 Gretchen Juan MD [address] [address] Surgeon Neurosurgery 02/13/23 Katherine Snow PA-C [address] [address] Specialist Neurosurgery 02/13/23 Per Leahy PA-C [address] [address] Specialist Neurosurgery 02/13/23 documented as of this encounter
--- OUTSIDE RECORDS SUMMARY | 2024-11-23 13:39 | XMS_ITS | Encounter Summary ---
Author Organization [facility] Address [address] [place] [address] Care Team Providers Care Security Control Assessor Name Role Phone Mily Lawrence MD Primary Care Provider +1 [phone] Ralf Gastelum MD Unavailable [phone] Gretchen Juan MD Unavailable [phone] Katherine Snow PA-C Unavailable [phone] Per Leahy PA-C Unavailable [phone] Reason for Visit * Reason Comments E-prescribe Rx Request Encounter Details Date Type Department Care Team Description 12/12/2020 Refill Internal Medicine [address], [address] [place] [address] Mily Lawrence MD [address] [place] [phone] E-prescribe Rx Request Social History Tobacco [...] Telephone Encounter - Annie Gorman M.A. - 12/13/2020 2:27 PM EST Lab Results Component Value Date URBENZO NONE DETECTED 06/28/2020 UROPIATES NONE DETECTED 06/28/2020 URBARBITUATE NONE DETECTED 06/28/2020 * Telephone Encounter - Sapna Concepcion - 12/13/2020 9:15 AM EST Patient would like script to be: E-PRESCRIBED/FAXED TO PHARMACY WHEN WAS THE PATIENT'S LAST APPOINTMENT IN ADULT MEDICINE? 10/28/2020 WHEN WAS THE LAST TIME THE PATIENT SAW THEIR PCP? Same as above Does patient have an upcoming appointment? Yes 03/01/2021 (THE MEDICATION REQUESTED IS ON THE MED [...] N/A Patients current insurance carrier is: Payor: [employer] FFS / Plan: [employer] / Product Type: MEDICAID RISK documented in this encounter Plan of Treatment Not on file documented as of this encounter Visit Diagnoses Diagnosis Need for prophylactic vaccination and inoculation against viral hepatitis Mixed hyperlipidemia Essential hypertension, benign Urinary tract infection without hematuria, site unspecified documented in this encounter Care Teams Security Control Assessor Relationship Specialty Start Date End Date Mily Lawrence MD PCP - General Internal Medicine 03/09/19 Ralf Gastelum MD 300 [facility] [address] [place] [address] Specialist Cardiovascular Disease 06/08/22 Gretchen Juan MD 175 [facility] 300 [place] [address] Surgeon Neurosurgery 02/13/23 Katherine Snow PA-C 175 [facility] 300 [place] [address] Specialist Neurosurgery 02/13/23 Per Leahy PA-C 175 [facility] 300 [place] [address] Specialist Neurosurgery 02/13/23 documented as of this encounter
--- OUTSIDE RECORDS SUMMARY | 2024-11-23 13:39 | XMS_ITS | Encounter Summary ---
Author Organization [facility] Address [address] [place] [address] Care Team Providers Care Mail Handler Name Role Phone Mily Lawrence MD Primary Care Provider [phone] Ralf Gastelum MD Unavailable [phone] Gretchen Juan MD Unavailable [phone] Katherine Snow PA-C Unavailable [phone] Per Leahy PA-C Unavailable [phone] Encounter Details Date Type Department Care Team Description 12/02/2023 Pocket Builder Report Medical Records [address] [place] [id number] Evelio Smith Social History Tobacco Use Types [...] on filedocumented in this encounter Care Teams Mail Handler Relationship Specialty Start Date End Date Mily Lawrence MD PCP - General Internal Medicine 03/09/19 Ralf Gastelum MD 300 [facility] [address] [place] [address] Specialist Cardiovascular Disease 06/08/22 Gretchen Juan MD 175 [facility] 300 [place] [address] Surgeon Neurosurgery 02/13/23 Katherine Snow PA-C 175 [facility] 300 [place] [address] Specialist Neurosurgery 02/13/23 Per Leahy PA-C 175 [facility] 300 [place] [address] Specialist Neurosurgery 02/13/23 documented as of this encounter
--- OUTSIDE RECORDS SUMMARY | 2024-11-23 13:39 | XMS_ITS | Encounter Summary ---
Author Organization [facility] Address [address] [place] [address] Care Team Providers Care Digital Artist Name Role Phone Mily Lawrence MD Primary Care Provider [phone] Ralf Gastelum MD Unavailable [phone] Gretchen Juan MD Unavailable [phone] Katherine Snow PA-C Unavailable [phone] Per Leahy PA-C Unavailable [phone] Encounter Details Date Type Department Care Team Description 01/22/2024 Orders Only Medical Records [address] [place] [id number] [place] [address] Social History Tobacco Use Types Packs/Day Years [...] Name Priority Date/Time Associated Diagnosis Comments OUTSIDE PLAIN FILM Routine 01/21/2024 documented in this encounter Results * OUTSIDE PLAIN FILM (01/21/2024) Narrative Authorizing Provider Result [facility] RADIOLOGY documented in this encounter Visit Diagnoses Not on filedocumented in this encounter Care Teams Digital Artist Relationship Specialty Start Date End Date Mily Lawrence MD PCP - General Internal Medicine 03/09/19 Ralf Gastelum MD 300 [facility] [address] [place] [address] Specialist Cardiovascular Disease 06/08/22 Gretchen Juan MD 175 [facility] 300 [place] [address] Surgeon Neurosurgery 02/13/23 Katherine Snow PA-C 175 [facility] 300 [place] [address] Specialist Neurosurgery 02/13/23 Per Leahy PA-C 175 [facility] 300 [place] [address] Specialist Neurosurgery 02/13/23 documented as of this encounter
--- OUTSIDE RECORDS SUMMARY | 2024-11-23 13:39 | XMS_ITS | Encounter Summary ---
Author Organization [facility] Address [address] [place] [address] Care Team Providers Care Reverse Logistics Analyst Name Role Phone Mily Lawrence MD Primary Care Provider [phone]- [phone] Ralf Gastelum MD Unavailable [phone] Gretchen Juan MD Unavailable [phone] Katherine Snow PA-C Unavailable [phone] Per Leahy PA-C Unavailable [phone] Encounter Details Date Type Department Care Team Description 01/28/2024 Pt. Non Urgent Medical Question [facility] 175 [facility] [address] [place] [phone] Salma Elizalde APRN Social History Tobacco Use Types Packs/Day Years [...] on filedocumented in this encounter Care Teams Reverse Logistics Analyst Relationship Specialty Start Date End Date Mily Lawrence MD PCP - General Internal Medicine 03/09/19 Ralf Gastelum MD 300 [facility] [address] [place] [address] Specialist Cardiovascular Disease 06/08/22 Gretchen Juan MD [address] [facility] 300 [place] [address] Surgeon Neurosurgery 02/13/23 Katherine Snow PA-C 175 [facility] 300 [place] [address] Specialist Neurosurgery 02/13/23 Per Leahy PA-C 175 [facility] 300 [place] [address] Specialist Neurosurgery 02/13/23 documented as of this encounter
--- OUTSIDE RECORDS SUMMARY | 2024-11-23 13:39 | XMS_ITS | Encounter Summary ---
Author Organization [facility] Address [address] [place] [address] Care Team Providers Care Jewel Oliving Machine Operator Name Role Phone Mily Lawrence MD Primary Care Provider Ralf Gastelum MD Unavailable [phone] Gretchen Juan MD Unavailable [phone] Katherine Snow PA-C Unavailable [phone] Per Leahy PA-C Unavailable [phone] Encounter Details Date Type Department Care Team Description 12/04/2023 Telephone [facility] [address] [phone] Brian Ferrari MD [address] [id number] Social History Tobacco Use Types Packs/Day Years [...] on filedocumented in this encounter Care Teams Jewel Oliving Machine Operator Relationship Specialty Start Date End Date Mily Lawrence MD PCP - General Internal Medicine 03/09/19 Ralf Gastelum MD 300 [facility] [address] [place] [address] Specialist Cardiovascular Disease 06/08/22 Gretchen Juan MD 175 [facility] 300 [place] [address] Surgeon Neurosurgery 02/13/23 Katherine Snow PA-C 175 [facility] 300 [place] [address] Specialist Neurosurgery 02/13/23 Per Leahy PA-C 175 [facility] 300 [place] [address] Specialist Neurosurgery 02/13/23 documented as of this encounter
--- OUTSIDE RECORDS SUMMARY | 2024-11-23 13:39 | XMS_ITS | Encounter Summary ---
Author Organization [facility] Address [address] [place] [address] Care Team Providers Care Salesforce Trainer Name Role Phone Mily Lawrence MD Primary Care Provider [phone] Ralf Gastelum MD Unavailable [phone] Gretchen Juan MD Unavailable [phone] Katherine Snow PA-C Unavailable [phone] Per Leahy PA-C Unavailable [phone] Reason for Visit * Reason Onset Date Comments refill request 04/26/2022 Encounter Details Date Type Department Care Team Description 04/26/2022 Refill Internal Medicine - [address], [address] [place] [address] Mily Lawrence MD [address] [place] [phone] refill request Social History Tobacco Use [...] suspected to have Coronavirus/COVID-19? No / Unsure 04/29/2022 12:56 PM EDT documented as of this encounter Miscellaneous Notes * Telephone Encounter - Kandi Self M.A. - 04/26/2022 1:05 PM EDT BP Readings from Last 5 Encounters: 08/31/21 (!) 130/98 07/13/21 114/65 05/16/21 122/86 05/10/21 112/66 02/27/21 120/68 Lab Results Component Value Date NA 139 05/12/2021 K 4.3 05/12/2021 CO2 29 05/12/2021 CL 103 05/12/2021 BUN 17 05/12/2021 CREAT 1.02 05/12/2021 GLU 111 05/12/2021 ALB 4.2 05/12/2021 SGOT 23 05/12/2021 SGPT 46 05/12/2021 TBILI 0.6 05/12/2021 ALKPHOS 63 05/12/2021 TP 8.0 05/12/2021 CA 9.4 05/12/2021 GFR 57 05/12/2021 * Telephone Encounter - Sujatha Beatty - 04/26/2022 12:55 PM EDT Patient would like script to be: E-PRESCRIBED/FAXED TO PHARMACY WHEN WAS THE PATIENT'S LAST APPOINTMENT WITH THE PRESCRIBING PROVIDER? 01-02-2022 Does patient have an upcoming appointment? no (THE MEDICATION REQUESTED IS ON THE MED LIST ABOVE) Did you check the Pharmacy information above?: YES Patient wants: 90 -day supply Is this a mail order prescription request ? NO Patients current insurance carrier is: Payor: [employer] M[employer] / Plan: [facility] [employer] [facility] / Product Type: HMO [id number] documented in this encounter Plan of Treatment Not on file documented as of this encounter Visit Diagnoses Not on filedocumented in this encounter Care Teams Salesforce Trainer Relationship Specialty Start Date End Date Mily Lawrence MD PCP - General Internal Medicine 03/09/19 Ralf Gastelum MD 300 [facility] 154 [place] [address] Specialist Cardiovascular Disease 06/08/22 Gretchen Juan MD [address] [address] Surgeon Neurosurgery 02/13/23 Katherine Snow PA-C [address] [address] Specialist Neurosurgery 02/13/23 Per Leahy PA-C [address] [address] Specialist Neurosurgery 02/13/23 documented as of this encounter
--- OUTSIDE RECORDS SUMMARY | 2024-11-23 13:39 | XMS_ITS | Encounter Summary ---
Author Organization [facility] Address [address] [place] [address] Care Team Providers Care Senior Account Representative Name Role Phone Mily Lawrence MD Primary Care Provider [phone] Ralf Gastelum MD Unavailable [phone] Gretchen Juan MD Unavailable [phone] Katherine Snow PA-C Unavailable [phone] Per Leahy PA-C Unavailable [phone] Encounter Details Date Type Department Care Team Description 10/11/2020 Orders Only Medical Records [address] [place] [id number] Mily Lawrence MD [address] [place] [phone] Breast mass, left Social History Tobacco Use Types Packs/Day Years [...] Procedure Name Priority Date/Time Associated Diagnosis Comments SONO GUIDE NEEDLE BIOPSY Routine 10/05/2020 Breast mass, left documented in this encounter Results * SONO GUIDE NEEDLE BIOPSY (10/05/2020) Mily Lawrence MD ULTRASOUND Performing Organization Address City/State/[facility] Co de Phone Number [address] documented in this encounter Visit Diagnoses Diagnosis Breast mass, left Lump or mass in breast documented in this encounter Care Teams Senior Account Representative Relationship Specialty Start Date End Date Mily Lawrence MD PCP - General Internal Medicine 03/09/19 Ralf Gastelum MD 300 [facility] [address] [place] [address] Specialist Cardiovascular Disease 06/08/22 Gretchen Juan MD 175 [facility] 300 [place] [address] Surgeon Neurosurgery 02/13/23 Katherine Snow PA-C 175 [facility] 300 [place] [address] Specialist Neurosurgery 02/13/23 Per Leahy PA-C 175 [facility] 300 [place] [address] Specialist Neurosurgery 02/13/23 documented as of this encounter
--- OUTSIDE RECORDS SUMMARY | 2024-11-23 13:40 | XMS_ITS | Encounter Summary ---
Author Organization [facility] Address [address] [place] [address] Care Team Providers Care Shipping Clerk/Admin Name Role Phone Mily Lawrence MD Primary Care Provider [phone]- [phone] Ralf Gastelum MD Unavailable [phone] Gretchen Juan MD Unavailable [phone] Katherine Snow PA-C Unavailable [phone] Per Leahy PA-C Unavailable [phone] Reason for Visit * Reason Onset Date Comments Medication 02/27/2024 [facility] Encounter Details Date Type Department Care Team Description 02/27/2024 Telephone Internal Medicine - [address], [address] [place] [address] Mily Lawrence MD [address] [place] [phone] Medication (Stay with [facility] St/Not Isa) Social History Tobacco Use Types Packs/Day Years [...] encounter Miscellaneous Notes * Telephone Encounter - Kyra Gleason - 03/05/2024 9:15 AM EDT Patient called today to inform PCP that she changed her mind regarding pharmacies and would like tostay with [facility] on [address] Please keep patient's scripts at [facility] - [address] [place] [address] * Telephone Encounter - Sharmila Campbell - 02/27/2024 3:56 PM EDT Faxing waiting on confirmation * Telephone Encounter - Brenda Kearney - 02/27/2024 11:27 AM EDT Received call from Nely requested updated medlist and scrpits. Patient was seen on 02/06/24 during visited reported pharmacy will need new scripts and med list. Fax to: [phone] documented in this encounter Plan of Treatment Not on file documented as of this encounter Visit Diagnoses Not on filedocumented in this encounter Care Teams Shipping Clerk/Admin Relationship Specialty Start Date End Date Mily Lawrence MD PCP - General Internal Medicine 03/09/19 Ralf Gastelum MD [address] [place] [address] Specialist Cardiovascular Disease 06/08/22 Gretchen Juan MD [address] [id number] Surgeon Neurosurgery 02/13/23 Katherine Snow PA-C [address] [address] Specialist Neurosurgery 02/13/23 Per Leahy PA-C [address] [address] Specialist Neurosurgery 02/13/23 documented as of this encounter
--- OUTSIDE RECORDS SUMMARY | 2024-11-23 13:40 | XMS_ITS | Encounter Summary ---
Author Organization [facility] Address [address] [place] [address] Care Team Providers Care Human Resource Professional Name Role Phone Mily Lawrence MD Primary Care Provider [phone] Ralf Gastelum MD Unavailable [phone] Gretchen Juan MD Unavailable [phone] Katherine Snow PA-C Unavailable [phone] Per Leahy PA-C Unavailable [phone] Encounter Details Date Type Department Care Team Description 08/21/2022 [facility] Internal Medicine [address], [address] [place] [address] Mily Lawrence MD [address] [place] [phone] Social History Tobacco Use Types Packs/Day [...] suspected to have Coronavirus/COVID-19? No / Unsure 08/14/2022 10:02 AM EDT documented as of this encounter Plan of Treatment Not on file documented as of this encounter Visit Diagnoses Not on filedocumented in this encounter Care Teams Human Resource Professional Relationship Specialty Start Date End Date Mily Lawrence MD PCP - General Internal Medicine 03/09/19 Ralf Gastelum MD 300 [facility] 154 [place] [address] Specialist Cardiovascular Disease 06/08/22 Gretchen Juan MD [address] [address] Surgeon Neurosurgery 02/13/23 Katherine Snow PA-C [address] [address] Specialist Neurosurgery 02/13/23 Per Leahy PA-C [address] [address] Specialist Neurosurgery 02/13/23 documented as of this encounter
--- OUTSIDE RECORDS SUMMARY | 2024-11-23 13:40 | XMS_ITS | Encounter Summary ---
Author Organization [facility] Address [address] [place] [address] Care Team Providers Care Textile Colorist Formulator Name Role Phone Mily Lawrence MD Primary Care Provider [phone] Ralf Gastelum MD Unavailable [phone] Gretchen Juan MD Unavailable [phone] Katherine Snow PA-C Unavailable [phone] Per Leahy PA-C Unavailable [phone] Reason for Visit * Reason Comments E-prescribe Rx Request Encounter Details Date Type Department Care Team Description 06/12/2022 Refill Internal Medicine [address], [address] [place] [address] Mily Lawrence MD [address] [place] [phone] E-prescribe Rx Request Social History Tobacco [...] suspected to have Coronavirus/COVID-19? No / Unsure 06/07/2022 11:50 AM EDT documented as of this encounter Miscellaneous Notes * Telephone Encounter - Sharmila Campbell - 06/13/2022 4:02 PM EDT BP Readings from Last 3 Encounters: 06/07/22 134/89 05/01/22 126/82 04/29/22 128/74 No visits with results within 1 Month(s) from this visit. Latest known visit with results is: Orders Only on 05/01/2022 Component Date Value ??? C-REACTIVE PROTEIN 05/01/2022 0.70 (A) ??? ERYTHROCYTE SEDIMENTATIO* 05/01/2022 22 ??? GLUCOSE 05/01/2022 101 (A) ??? Blood Urea Nitrogen 05/01/2022 15 ??? CREAT 05/01/2022 0.89 ? ? GLOMERULAR FILTRATION RA* 05/01/2022 > 60 ??? NA 05/01/2022 140 ??? K 05/01/2022 3.9 ??? CL 05/01/2022 105 ??? CARBON DIOXIDE (CO2) 05/01/2022 30 ??? ANION GAP 05/01/2022 5 ??? CALCIUM 05/01/2022 9.9 ??? TOTAL PROTEIN (TP) 05/01/2022 8.1 (A) ??? Albumin 05/01/2022 4.2 ??? BILIRUBIN TOTAL 05/01/2022 0.6 ??? SGOT 05/01/2022 31 ??? SGPT 05/01/2022 114 (A) ??? ALK PHOS 05/01/2022 66 ??? WHITE BLOOD COUNT 05/01/2022 6.6 ??? RED BLOOD COUNT 05/01/2022 4.7 ??? Hemoglobin 05/01/2022 13.7 ??? Hematocrit 05/01/2022 40.9 ??? MEAN CORPUSCULAR VOLUME 05/01/2022 87.4 ??? MEAN CORPUSCULAR HEMOGLO* 05/01/2022 29.3 ??? MEAN CORPUSCULAR HGB CONC 05/01/2022 33.5 ??? RED CELL DISTRIBUTION WI* 05/01/2022 14.3 ??? PLT COUNT 05/01/2022 291 ??? MEAN PLATELET VOLUME 05/01/2022 11.1 (A) ??? NRBC % AUTO 05/01/2022 0.0 ??? NEUTROPHILS % 05/01/2022 45.9 ??? LYMPH % 05/01/2022 42.7 ??? MONO % 05/01/2022 6.2 ??? EOS % 05/01/2022 3.8 ??? BASO % 05/01/2022 0.9 ??? IMMATURE GRANULOCYTES % 05/01/2022 0.5 ??? NRBC # AUTO 05/01/2022 0.00 ??? NEUT # 05/01/2022 3.05 ??? LYMPH # 05/01/2022 2.83 ??? MONO # 05/01/2022 0.41 ??? EOS # 05/01/2022 0.25 ??? BASO # 05/01/2022 0.06 ??? IMMATURE GRANULOCYTES # 05/01/2022 0.03 ??? ERYTHROCYTE SEDIMENTATIO* 05/01/2022 22 ??? GLUCOSE 05/01/2022 101 (A) ??? Blood Urea Nitrogen 05/01/2022 15 ??? CREAT 05/01/2022 0.89 ? ? GLOMERULAR FILTRATION RA* 05/01/2022 > 60 ??? NA 05/01/2022 140 ??? K 05/01/2022 3.9 ??? CL 05/01/2022 105 ??? CARBON DIOXIDE (CO2) 05/01/2022 30 ??? ANION GAP 05/01/2022 5 ??? CALCIUM 05/01/2022 9.9 ??? TOTAL PROTEIN (TP) 05/01/2022 8.1 (A) ??? Albumin 05/01/2022 4.2 ??? BILIRUBIN TOTAL 05/01/2022 0.6 ??? SGOT 05/01/2022 31 ??? SGPT 05/01/2022 114 (A) ??? ALK PHOS 05/01/2022 66 ??? WHITE BLOOD COUNT 05/01/2022 6.6 ??? RED BLOOD COUNT 05/01/2022 4.7 ??? Hemoglobin 05/01/2022 13.7 ??? Hematocrit 05/01/2022 40.9 ??? MEAN CORPUSCULAR VOLUME 05/01/2022 87.4 ??? MEAN CORPUSCULAR HEMOGLO* 05/01/2022 29.3 ??? MEAN CORPUSCULAR HGB CONC 05/01/2022 33.5 ??? RED CELL DISTRIBUTION WI* 05/01/2022 14.3 ??? PLT COUNT 05/01/2022 291 ??? MEAN PLATELET VOLUME 05/01/2022 11.1 (A) ??? NRBC % AUTO 05/01/2022 0.0 ??? NEUTROPHILS % 05/01/2022 45.9 ??? LYMPH % 05/01/2022 42.7 ??? MONO % 05/01/2022 6.2 ??? EOS % 05/01/2022 3.8 ??? BASO % 05/01/2022 0.9 ??? IMMATURE GRANULOCYTES % 05/01/2022 0.5 ??? NRBC # AUTO 05/01/2022 0.00 ??? NEUT # 05/01/2022 3.05 ??? LYMPH # 05/01/2022 2.83 ??? MONO # 05/01/2022 0.41 ??? EOS # 05/01/2022 0.25 ??? BASO # 05/01/2022 0.06 ??? IMMATURE GRANULOCYTES # 05/01/2022 0.03 ??? GLYCATED HEMOGLOBIN A1C 05/01/2022 5.4 ??? ESTIMATED AVERAGE GLUCOSE 05/01/2022 108 ??? Cholesterol 05/01/2022 201 (A) ??? TRIGLYCERIDES 05/01/2022 163 (A) ??? HDL CHOLESTEROL 05/01/2022 49 ??? LDL CALCULATED 05/01/2022 120 (A) ??? TC-HDLC RATIO 05/01/2022 4.1 ??? WHITE BLOOD COUNT 05/01/2022 6.6 ??? RED BLOOD COUNT 05/01/2022 4.7 ??? Hemoglobin 05/01/2022 13.7 ??? Hematocrit 05/01/2022 40.9 ??? MEAN CORPUSCULAR VOLUME 05/01/2022 87.4 ??? MEAN CORPUSCULAR HEMOGLO* 05/01/2022 29.3 ??? MEAN CORPUSCULAR HGB CONC 05/01/2022 33.5 ??? RED CELL DISTRIBUTION WI* 05/01/2022 14.3 ??? PLT COUNT 05/01/2022 291 ??? MEAN PLATELET VOLUME 05/01/2022 11.1 (A) ??? NRBC % AUTO 05/01/2022 0.0 ??? NEUTROPHILS % 05/01/2022 45.9 ??? LYMPH % 05/01/2022 42.7 ??? MONO % 05/01/2022 6.2 ??? EOS % 05/01/2022 3.8 ??? BASO % 05/01/2022 0.9 ??? IMMATURE GRANULOCYTES % 05/01/2022 0.5 ??? NRBC # AUTO 05/01/2022 0.00 ??? NEUT # 05/01/2022 3.05 ??? LYMPH # 05/01/2022 2.83 ??? MONO # 05/01/2022 0.41 ??? EOS # 05/01/2022 0.25 ??? BASO # 05/01/2022 0.06 ??? IMMATURE GRANULOCYTES # 05/01/2022 0.03 ? ? GLOMERULAR FILTRATION RA* 05/01/2022 > 60 ??? GLUCOSE 05/01/2022 101 (A) ??? Blood Urea Nitrogen 05/01/2022 15 ??? CREAT 05/01/2022 0.89 ??? NA 05/01/2022 140 ??? K 05/01/2022 3.9 ??? CL 05/01/2022 105 ??? CARBON DIOXIDE (CO2) 05/01/2022 30 ??? ANION GAP 05/01/2022 5 ??? CALCIUM 05/01/2022 9.9 ??? TOTAL PROTEIN (TP) 05/01/2022 8.1 (A) ??? Albumin 05/01/2022 4.2 ??? BILIRUBIN TOTAL 05/01/2022 0.6 ??? SGOT 05/01/2022 31 ??? SGPT 05/01/2022 114 (A) ??? ALK PHOS 05/01/2022 66 * Telephone Encounter - Marci Canseco - 06/13/2022 2:58 PM EDT Jadon 06/07/22 Nov 10/09/22 documented in this encounter Plan of Treatment Not on file documented as of this encounter Visit Diagnoses Not on filedocumented in this encounter Care Teams Textile Colorist Formulator Relationship Specialty Start Date End Date Mily Lawrence MD PCP - General Internal Medicine 03/09/19 Ralf Gastelum MD 300 [facility] 154 [place] [address] Specialist Cardiovascular Disease 06/08/22 Gretchen Juan MD 175 [facility] 300 [place] [address] Surgeon Neurosurgery 02/13/23 Katherine Snow PA-C [address] [address] Specialist Neurosurgery 02/13/23 Per Leahy PA-C 175 [facility] 300 [place] [address] Specialist Neurosurgery 02/13/23 documented as of this encounter
--- OUTSIDE RECORDS SUMMARY | 2024-11-23 13:40 | XMS_ITS | Encounter Summary ---
Author Organization [facility] Address [address] [place] [address] Care Team Providers Care Podiatry Professor Name Role Phone Mily Lawrence MD Primary Care Provider [phone] Ralf Gastelum MD Unavailable [phone] Gretchen Juan MD Unavailable [phone] Katherine Snow PA-C Unavailable [phone] Per Leahy PA-C Unavailable [phone] Encounter Details Date Type Department Care Team Description 06/04/2022 [facility] [address] [place] [address] Md Tiki Social History Tobacco Use Types [...] on filedocumented in this encounter Care Teams Podiatry Professor Relationship Specialty Start Date End Date Mily Lawrence MD PCP - General Internal Medicine 03/09/19 Ralf Gastelum MD 300 [facility] [address] [place] [address] Specialist Cardiovascular Disease 06/08/22 Gretchen Juan MD 175 [facility] 300 [place] [address] Surgeon Neurosurgery 02/13/23 Katherine Snow PA-C [address] [address] Specialist Neurosurgery 02/13/23 Per Leahy PA-C [address] [address] Specialist Neurosurgery 02/13/23 documented as of this encounter
--- OUTSIDE RECORDS SUMMARY | 2024-11-23 13:40 | XMS_ITS | Encounter Summary ---
Author Organization [facility] Address [address] [place] [address] Care Team Providers Care Pallet Stone Positioner Name Role Phone Mily Lawrence MD Primary Care Provider +[phone] Ralf Gastelum MD Unavailable [phone] Gretchen Juan MD Unavailable [phone] Katherine Snwo PA-C Unavailable [phone] Per Leahy PA-C Unavailable [phone] Encounter Details Date Type Department Care Team Description 03/27/2024 Cooperative Manager Report Medical Records [address] [place] [address] Evelio Smith Social History Tobacco Use Types [...] on filedocumented in this encounter Care Teams Pallet Stone Positioner Relationship Specialty Start Date End Date Mily Lawrence MD PCP - General Internal Medicine 03/09/19 Ralf Gastelum MD 300 [facility] [address] [place] [address] Specialist Cardiovascular Disease 06/08/22 Gretchen Juan MD 175 [facility] 300 [place] [address] Surgeon Neurosurgery 02/13/23 Katherine Snow PA-C 175 [facility] 300 [place] [address] Specialist Neurosurgery 02/13/23 Per Leahy PA-C 175 [facility] 300 [place] [address] Specialist Neurosurgery 02/13/23 documented as of this encounter
--- OUTSIDE RECORDS SUMMARY | 2024-11-23 13:40 | XMS_ITS | Encounter Summary ---
Author Organization [facility] Address [address] [place] [address] Care Team Providers Care Housecleaner Name Role Phone Mily Lawrence MD Primary Care Provider [phone] Ralf Gastelum MD Unavailable [phone] Gretchen Juan MD Unavailable [phone] Katherine Snow PA-C Unavailable [phone] Per Leahy PA-C Unavailable [phone] Reason for Visit * Reason Comments E-prescribe Rx Request Encounter Details Date Type Department Care Team Description 03/24/2021 Refill Internal Medicine - [address], [address] [place] [address] Mily Lawrence MD [address] [place] [id number] E-prescribe Rx Request Social History Tobacco [...] or suspected to have Coronavirus / COVID-19? Unable to assess 02/27/2021 1:15 PM EDT documented as of this encounter Miscellaneous Notes * Telephone Encounter - Walt Ruano - 03/24/2021 10:43 AM EDT Jadon 01/04/21 Nov 05/10/21 No visits with results within 1 Month(s) from this visit. Latest known visit with results is: Orders Only on 10/28/2020 Component Date Value ??? WHITE BLOOD COUNT 10/28/2020 6.8 ??? RED BLOOD COUNT 10/28/2020 4.7 ??? Hemoglobin 10/28/2020 14.1 ??? Hematocrit 10/28/2020 44.2 ??? MEAN CORPUSCULAR VOLUME 10/28/2020 93.4 ??? MEAN CORPUSCULAR HEMOGLO* 10/28/2020 29.8 ??? MEAN CORPUSCULAR HGB CONC 10/28/2020 31.9* ??? RED CELL DISTRIBUTION WI* 10/28/2020 13.6 ??? PLT COUNT 10/28/2020 279 ??? MEAN PLATELET VOLUME 10/28/2020 10.1 ??? NRBC % AUTO 10/28/2020 0.0 ??? NEUTROPHILS % 10/28/2020 52.4 ??? LYMPH % 10/28/2020 38.2 ??? MONO % 10/28/2020 5.8 ??? EOS % 10/28/2020 2.7 ??? BASO % 10/28/2020 0.6 ??? IMMATURE GRANULOCYTES % 10/28/2020 0.3 ??? NRBC # AUTO 10/28/2020 0.00 ??? NEUT # 10/28/2020 3.56 ??? LYMPH # 10/28/2020 2.59 ??? MONO # 10/28/2020 0.39 ??? EOS # 10/28/2020 0.18 ??? BASO # 10/28/2020 0.04 ??? IMMATURE GRANULOCYTES # 10/28/2020 0.02 ??? GLUCOSE 10/28/2020 81 ??? Blood Urea Nitrogen 10/28/2020 18 ??? CREAT 10/28/2020 1.03 ??? GLOMERULAR FILTRATION RA* 10/28/2020 56 ??? NA 10/28/2020 139 ??? K 10/28/2020 4.2 ??? CL 10/28/2020 103 ??? CARBON DIOXIDE (CO2) 10/28/2020 33* ??? ANION GAP 10/28/2020 3 ??? CALCIUM 10/28/2020 9.7 ??? TOTAL PROTEIN (TP) 10/28/2020 8.2* ??? Albumin 10/28/2020 4.2 ??? BILIRUBIN TOTAL 10/28/2020 0.5 ??? SGOT 10/28/2020 27 ??? SGPT 10/28/2020 51 ??? ALK PHOS 10/28/2020 71 ??? MAGNESIUM (MG) 10/28/2020 2.3 ??? TSH 10/28/2020 1.49 * Telephone Encounter - Ashli Alegria - 03/24/2021 10:32 AM EDT Jadon 01/04/21 Nov 05/10/21 30 day documented in this encounter Plan of Treatment Not on file documented as of this encounter Visit Diagnoses Not on filedocumented in this encounter Care Teams Housecleaner Relationship Specialty Start Date End Date Mily Lawrence MD PCP - General Internal Medicine 03/09/19 Ralf Gastelum MD [address] [place] [address] Specialist Cardiovascular Disease 06/08/22 Gretchen Juan MD 175 [facility] 300 [place] [address] Surgeon Neurosurgery 02/13/23 Katherine Snow PA-C [address] [address] Specialist Neurosurgery 02/13/23 Per Leahy PA-C 175 [facility] 300 [place] [address] Specialist Neurosurgery 02/13/23 documented as of this encounter
--- OUTSIDE RECORDS SUMMARY | 2024-11-23 13:40 | XMS_ITS | Encounter Summary ---
Author Organization [facility] Address [address] [place] [address] Care Team Providers Care Support Team Assoc Name Role Phone Mily Lawrence MD Primary Care Provider Ralf Gastelum MD Unavailable [phone] Gretchen Juan MD Unavailable [phone] Katherine Snow PA-C Unavailable [phone] Per Leahy PA-C Unavailable [phone] Reason for Visit * Reason Onset Date Comments DME Request 03/13/2024 Encounter Details Date Type Department Care Team Description 03/13/2024 Telephone [facility] [address] [address] Ralf Phoenix DPM [address] [address] DME Request Social History Tobacco Use Types Packs/Day [...] encounter Miscellaneous Notes * Telephone Encounter - Walter Momin - 03/13/2024 2:54 PM EDT Dianna and nataliya addison. 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 She has an upcoming appointment withDr. Phoenix on 03/26 and would like a brace before if possible. Please advise: [phone]. Thanks, DH documented in this encounter Plan of Treatment Not on file documented as of this encounter Visit Diagnoses Not on filedocumented in this encounter Care Teams Support Team Assoc Relationship Specialty Start Date End Date Mily Lawrence MD PCP - General Internal Medicine 03/09/19 Ralf Gastelum MD 300 [facility] 154 [place] [address] Specialist Cardiovascular Disease 06/08/22 Gretchen Juan MD [address] [address] Surgeon Neurosurgery 02/13/23 Katherine Snow PA-C [address] [address] Specialist Neurosurgery 02/13/23 Per Leahy PA-C [address] [address] Specialist Neurosurgery 02/13/23 documented as of this encounter
--- OUTSIDE RECORDS SUMMARY | 2024-11-23 13:40 | XMS_ITS | Encounter Summary ---
Author Organization [facility] Address [address] [place] [address] Care Team Providers Care Pension Agent Name Role Phone Mily Lawrence MD Primary Care Provider [phone] Ralf Gastelum MD Unavailable [phone] Gretchen Juan MD Unavailable [phone] Katherine Snow PA-C Unavailable [phone] Per Leahy PA-C Unavailable [phone] Encounter Details Date Type Department Care Team Description 03/22/2021 [facility] Medical Records [address] [place] [address] Abstract, Provider Social History Tobacco Use Types [...] on filedocumented in this encounter Care Teams Pension Agent Relationship Specialty Start Date End Date Mily Lawrence MD PCP - General Internal Medicine 03/09/19 Ralf Gastelum MD 300 [facility] [address] [place] [address] Specialist Cardiovascular Disease 06/08/22 Gretchen Juan MD 175 [facility] 300 [place] [address] Surgeon Neurosurgery 02/13/23 Katherine Snow PA-C [address] [facility] 300 [place] [address] Specialist Neurosurgery 02/13/23 Per Leahy PA-C 175 [facility] 300 [place] [address] Specialist Neurosurgery 02/13/23 documented as of this encounter
== END 2024-11-23 15:54 | disposition home or self-care (01) ==
PROVIDERS: PCP Internal Medicine; Visit Provider Nurse Practitioner Family
DX: G43.009 Migraine without aura, not intractable, without status migrainosus (principal); G51.32 Clonic hemifacial spasm, left; G51.0 Bell's palsy; G47.33 Obstructive sleep apnea (adult) (pediatric); D35.2 Benign neoplasm of pituitary gland
CPT/HCPCS: 99214; G2211

== ENCOUNTER 2024-12-01 13:19 | Outpatient (REF) | payer OTHER, SELFPAY ==
[2024-12-01 13:34] LABS: MANUAL DIFF FLAG NO
--- OUTSIDE RECORDS SUMMARY | 2024-12-01 14:26 | XMS_ITS | Encounter Summary ---
Author Organization [facility] Address [address] [place] [address] Care Team Providers Care Nurse Private Duty Name Role Phone Mily Lawrence MD Primary Care Provider [phone] Trey Mueller MD Primary Care Provider Unavaila ble Mily Lawrence MD Primary Care Provider [phone] Ralf Gastelum MD Unavailable [phone] Gretchen Juan MD Unavailable [phone] Katherine Snow PA-C Unavailable [phone] Per Leahy PA-C Unavailable [phone] Encounter Details Date Type Department Care Team Description 10/24/2018 Perfume Compounder Report Medical Records [address] [place] [address] Per Leahy PA-C 175 [facility] 300 [place] [address] Social History Tobacco Use Types Packs/Day Years [...] on filedocumented in this encounter Care Teams Nurse Private Duty Relationship Specialty Start Date End Date Mily Lawrence MD PCP - General Internal Medicine 03/13/17 01/01/19 Trey Mueller MD PCP - General Internal Medicine 01/02/19 03/08/19 Mily Lawrence MD PCP - General Internal Medicine 03/09/19 Ralf Gastelum MD 300 [facility] [address] [place] [address] Specialist Cardiovascular Disease 06/08/22 Gretchen Juan MD [address] [address] Surgeon Neurosurgery 02/13/23 Katherine Snow PA-C 175 [facility] 300 [place] [address] Specialist Neurosurgery 02/13/23 Per Leahy PA-C 175 [facility] 300 [place] [address] Specialist Neurosurgery 02/13/23 documented as of this encounter
--- OUTSIDE RECORDS SUMMARY | 2024-12-01 14:26 | XMS_ITS | Encounter Summary ---
Author Organization [facility] Address [address] [place] [address] Care Team Providers Care Sr Technical Sales Consultant Name Role Phone Mily Lawrence MD Primary Care Provider [phone] Trey Mueller MD Primary Care Provider Unavaila ble Mily Lawrence MD Primary Care Provider [phone] Ralf Gastelum MD Unavailable [phone] Gretchen Juan MD Unavailable [phone] Katherine Snow PA-C Unavailable [phone] Per Leahy PA-C Unavailable [phone] Encounter Details Date Type Department Care Team Description 11/19/2018 Performance Management Consultant Report Medical Records [address] [place] [address] Marci Bernardo PA-C [address] [place] [address] Social History Tobacco Use Types Packs/Day Years [...] on filedocumented in this encounter Care Teams Sr Technical Sales Consultant Relationship Specialty Start Date End Date Mily Lawrence MD PCP - General Internal Medicine 03/13/17 01/01/19 Trey Mueller MD PCP - General Internal Medicine 01/02/19 03/08/19 Mily Lawrence MD PCP - General Internal Medicine 03/09/19 Ralf Gastelum MD 300 [facility] 154 [place] [address] Specialist Cardiovascular Disease 06/08/22 Gretchen Juan MD [address] [address] Surgeon Neurosurgery 02/13/23 Katherine Snow PA-C [address] [address] Specialist Neurosurgery 02/13/23 Per Leahy PA-C [address] [address] Specialist Neurosurgery 02/13/23 documented as of this encounter
--- OUTSIDE RECORDS SUMMARY | 2024-12-01 14:26 | XMS_ITS | Continuity of Care Document ---
Author Organization Dermatology [facility] Address [address] [place] [address] Phone Care Team Providers Care Gum Worker Name Role Phone Ryan Duran MD Unavailable Unavailable Procedures Procedure Date [employer] Sales tax [employer] Advance Directives Directive Yes / No Effective Date File Name No Information Encounters Encounter Description Practice Location Reason(s) For Visit Diagnoses Date Provider Providers Copied on Encounter Dermatology [facility], [address] [place] [address], [address] [place] [address], tel:[phone] [facility] No Information Renee Davis. [address] [place] [address], [address] [place] [address] , . tel: [phone] Dermatology [facility], [address] [place] [address], [id number], tel:[phone] [facility] Location No Information Renee Davis. [address] [place] [address], [id number] , . tel: [phone] Dermatology [facility], [address] [place] [address], [address] [place] [address], tel:[phone] [facility] No Information Renee Davis. [address] [place] [address], [place], [place], [id number] , . tel: [phone] Family History Family Member Type Diagnosis Age [...]
--- OUTSIDE RECORDS SUMMARY | 2024-12-01 14:26 | XMS_ITS | Encounter Summary ---
Author Organization [facility] Address [address] [place] [address] Care Team Providers Care Hedis Abstractor Name Role Phone Mily Lawrence MD Primary Care Provider [phone] Ralf Gastelum MD Unavailable [phone] Gretchen Juan MD Unavailable [phone] Katherine Snow PA-C Unavailable [phone] Per Leahy PA-C Unavailable [phone] Encounter Details Date Type Department Care Team Description 12/25/2022 Ultrasound Tech Report Medical Records [address] [place] [address] Evelio Smith Social History Tobacco Use Types [...] on filedocumented in this encounter Care Teams Hedis Abstractor Relationship Specialty Start Date End Date Mily Lawrence MD PCP - General Internal Medicine 03/09/19 Ralf Gastelum MD 300 [facility] [address] [place] [address] Specialist Cardiovascular Disease 06/08/22 Gretchen Juan MD 175 [facility] 300 [place] [address] Surgeon Neurosurgery 02/13/23 Katherine Snow PA-C 175 [facility] 300 [place] [address] Specialist Neurosurgery 02/13/23 Per Leahy PA-C 175 [facility] 300 [place] [address] Specialist Neurosurgery 02/13/23 documented as of this encounter
--- OUTSIDE RECORDS SUMMARY | 2024-12-01 14:26 | XMS_ITS | Encounter Summary ---
Author Organization [facility] Address [address] [place] [address] Care Team Providers Care Food Order Expediter Name Role Phone Mily Lawrence MD Primary Care Provider [phone] Ralf Gastelum MD Unavailable [phone] Gretchen Juan MD Unavailable [phone] Katherine Snow PA-C Unavailable [phone] Per Leahy PA-C Unavailable [phone] Encounter Details Date Type Department Care Team Description 08/25/2019 Blower Blast Furnace Report Medical Records [address] [place] [address] Evelio Smith Social History Tobacco Use Types [...] filedocumented in this encounter Care Teams Food Order Expediter Relationship Specialty Start Date End Date Mily Lawrence MD PCP - General Internal Medicine 03/09/19 Ralf Gastelum MD 300 [facility] [address] [place] [address] Specialist Cardiovascular Disease 06/08/22 Gretchen Juan MD 175 [facility] 300 [place] [address] Surgeon Neurosurgery 02/13/23 Katherine Snow PA-C 175 [facility] 300 [place] [address] Specialist Neurosurgery 02/13/23 Per Leahy PA-C 175 [facility] 300 [place] [address] Specialist Neurosurgery 02/13/23 documented as of this encounter
--- OUTSIDE RECORDS SUMMARY | 2024-12-01 14:26 | XMS_ITS | Encounter Summary ---
Author Organization [facility] Address [address] [place] [address] Care Team Providers Care Loan Officer Assistant Name Role Phone Mily Lawrence MD Primary Care Provider [phone] Ralf Gastelum MD Unavailable [phone] Gretchen Juan MD Unavailable [phone] Katherine Snow PA-C Unavailable [phone] Per Leahy PA-C Unavailable [phone] Encounter Details Date Type Department Care Team Description 05/26/2019 Flavorer Report Medical Records [address] [place] [address] Gretchen Juan MD [address] [place] [address] [address] [place], [place] [id number] Social History Tobacco Use Types Packs/Day Years [...] on filedocumented in this encounter Care Teams Loan Officer Assistant Relationship Specialty Start Date End Date Mily Lawrence MD PCP - General Internal Medicine 03/09/19 Ralf Gastelum MD 300 [facility] [address] [place] [address] Specialist Cardiovascular Disease 06/08/22 Gretchen Juan MD 175 [facility] 300 [place] [address] Surgeon Neurosurgery 02/13/23 Katherine Snow PA-C 175 [facility] 300 [place] [address] Specialist Neurosurgery 02/13/23 Per Leahy PA-C 175 [facility] 300 [place] [address] Specialist Neurosurgery 02/13/23 documented as of this encounter
--- OUTSIDE RECORDS SUMMARY | 2024-12-01 14:26 | XMS_ITS | Encounter Summary ---
Author Organization [facility] Address [address] [place] [address] Care Team Providers Care Dish Up Person Name Role Phone Mily Lawrence MD Primary Care Provider [phone] Trey Mueller MD Primary Care Provider Unavaila ble Mily Lawrence MD Primary Care Provider [phone] Ralf Gastelum MD Unavailable [phone] Gretchen Juan MD Unavailable [phone] Katherine Snow PA-C Unavailable [phone] Per Leahy PA-C Unavailable [phone] Encounter Details Date Type Department Care Team Description 08/22/2018 Transfer Records Medical Records [address] [place] [address] Abstract, Provider Social History Tobacco Use Types [...] on filedocumented in this encounter Care Teams Dish Up Person Relationship Specialty Start Date End Date Mily Lawrence MD PCP - General Internal Medicine 03/13/17 01/01/19 Trey Mueller MD PCP - General Internal Medicine 01/02/19 03/08/19 Mily Lawrence MD PCP - General Internal Medicine 03/09/19 Ralf Gastelum MD [address] [address] Specialist Cardiovascular Disease 06/08/22 Gretchen Juan MD [address] [address] Surgeon Neurosurgery 02/13/23 Katherine Snow PA-C [address] [address] Specialist Neurosurgery 02/13/23 Per Leahy PA-C [address] [address] Specialist Neurosurgery 02/13/23 documented as of this encounter
--- OUTSIDE RECORDS SUMMARY | 2024-12-01 14:26 | XMS_ITS | Encounter Summary ---
Author Organization [facility] Address [address] [place] [address] Care Team Providers Care Yardage Estimator Name Role Phone Mily Lawrence MD Primary Care Provider [phone] Ralf Gastelum MD Unavailable [phone] Gretchen Juan MD Unavailable [phone] Katherine Snow PA-C Unavailable [phone] Per Leahy PA-C Unavailable [phone] Encounter Details Date Type Department Care Team Description 08/06/2019 Release of Information Medical Records [address] [place] [address] Abstract, Provider Social History Tobacco Use Types [...] on filedocumented in this encounter Care Teams Yardage Estimator Relationship Specialty Start Date End Date Mily Lawrence MD PCP - General Internal Medicine 03/09/19 Ralf Gastelum MD 300 [facility] [address] [place] [address] Specialist Cardiovascular Disease 06/08/22 Gretchen Juan MD 175 [facility] 300 [place] [address] Surgeon Neurosurgery 02/13/23 Katherine Snow PA-C 175 [facility] 300 [place] [address] Specialist Neurosurgery 02/13/23 Per Leahy PA-C 175 [facility] 300 [place] [address] Specialist Neurosurgery 02/13/23 documented as of this encounter
--- OUTSIDE RECORDS SUMMARY | 2024-12-01 14:26 | XMS_ITS | Encounter Summary ---
Author Organization [facility] Address [address] [place] [address] Care Team Providers Care Technical Sales Associate Name Role Phone Mily Lawrence MD Primary Care Provider [phone] Ralf Gastelum MD Unavailable [phone] Gretchen Juan MD Unavailable [phone] Katherine Snwo PA-C Unavailable [phone] Per Leahy PA-C Unavailable [phone] Encounter Details Date Type Department Care Team Description 09/16/2019 Orders Only Podiatry - [address] [address] Yvonne Medina DPM Posterior tibial tendon tear, [...] Yvonne Medina DPM MRI Performing Organization Address City/State/[facility] Co de Phone Number [address] documented in this encounter Visit Diagnoses Diagnosis Posterior tibial tendon tear, traumatic, right, initial encounter Pain in right foot Pain in limb Acute deep vein thrombosis (DVT) of calf muscle vein of right lower extremity (HCC) documented in this encounter Care Teams Technical Sales Associate Relationship Specialty Start Date End Date Mily Lawrence MD PCP - General Internal Medicine 03/09/19 Ralf Gastelum MD [address] [facility] [address] [place] [address] Specialist Cardiovascular Disease 06/08/22 Gretchen Juan MD 175 [facility] 300 [place] [address] Surgeon Neurosurgery 02/13/23 Katherine Snow PA-C 175 [facility] 300 [place] [address] Specialist Neurosurgery 02/13/23 Per Leahy PA-C 175 [facility] 300 [place] [address] Specialist Neurosurgery 02/13/23 documented as of this encounter
--- OUTSIDE RECORDS SUMMARY | 2024-12-01 14:26 | XMS_ITS | Encounter Summary ---
Author Organization [facility] Address [address] [place] [address] Care Team Providers Care Back Tender Insulation Board Name Role Phone Mily Lawrence MD Primary Care Provider [phone] Ralf Gastelum MD Unavailable [phone] Gretchen Juan MD Unavailable [phone] Katherine Snow PA-C Unavailable [phone] Per Leahy PA-C Unavailable [phone] Encounter Details Date Type Department Care Team Description 07/09/2019 Area Attendant Report Medical Records [address] [place] [address] Evelio Smith Social History Tobacco Use Types [...] on filedocumented in this encounter Care Teams Back Tender Insulation Board Relationship Specialty Start Date End Date Mily Lawrence MD PCP - General Internal Medicine 03/09/19 Ralf Gastelum MD 300 [facility] [address] [place] [address] Specialist Cardiovascular Disease 06/08/22 Gretchen Juan MD 175 [facility] 300 [place] [address] Surgeon Neurosurgery 02/13/23 Katherine Snow PA-C 175 [facility] 300 [place] [address] Specialist Neurosurgery 02/13/23 Per Leahy PA-C 175 [facility] 300 [place] [address] Specialist Neurosurgery 02/13/23 documented as of this encounter
--- OUTSIDE RECORDS SUMMARY | 2024-12-01 14:26 | XMS_ITS | Encounter Summary ---
Author Organization [facility] Address [address] [place] [address] Care Team Providers Care Manager Consumer Insights Name Role Phone Mily Lawrence MD Primary Care Provider [phone] Ralf Gastelum MD Unavailable [phone] Gretchen Juan MD Unavailable [phone] Katherine Snow PA-C Unavailable [phone] Per Leahy PA-C Unavailable [phone] Reason for Visit * Reason Onset Date Comments refill request 09/25/2019 Metoprolol Encounter Details Date Type Department Care Team Description 09/25/2019 Telephone Internal Medicine - [address], [address] [place], [place] [id number] Mily Lawrence MD [address] [place] [phone] refill request (Metoprolol) Social History Tobacco [...] has f/u scheduled for 10/27/19. Alyce Vázquez linen room custodian Manager with [facility] @ [address] [place] [address] [id number] documented in this encounter Plan of Treatment Not on file documented as of this encounter Visit Diagnoses Not on filedocumented in this encounter Care Teams Manager Consumer Insights Relationship Specialty Start Date End Date Mily Lawrence MD PCP - General Internal Medicine 03/09/19 Ralf Gastelum MD 300 [facility] [address] [place] [address] Specialist Cardiovascular Disease 06/08/22 Gretchen Juan MD 175 [facility] 300 [place] [address] Surgeon Neurosurgery 02/13/23 Katherine Snow PA-C [address] [address] Specialist Neurosurgery 02/13/23 Per Leahy PA-C [address] [address] Specialist Neurosurgery 02/13/23 documented as of this encounter
--- OUTSIDE RECORDS SUMMARY | 2024-12-01 14:26 | XMS_ITS | Encounter Summary ---
Author Organization [facility] Address [address] [place] [address] Care Team Providers Care Attending Urologist Name Role Phone Mily Lawrence MD Primary Care Provider +[phone] Ralf Gastelum MD Unavailable [phone] Gretchen Juan MD Unavailable [phone] Katherine Snow PA-C Unavailable [phone] Per Leahy PA-C Unavailable [phone] Encounter Details Date Type Department Care Team Description 06/29/2019 Patient Care Provider Report Medical Records [address] [place] [address] Evelio Smith Social History Tobacco Use Types [...] on filedocumented in this encounter Care Teams Attending Urologist Relationship Specialty Start Date End Date Mily Lawrence MD PCP - General Internal Medicine 03/09/19 Ralf Gastelum MD 300 [facility] [address] [place] [address] Specialist Cardiovascular Disease 06/08/22 Gretchen Juan MD 175 [facility] 300 [place] [address] Surgeon Neurosurgery 02/13/23 Katherine Snow PA-C 175 [facility] 300 [place] [address] Specialist Neurosurgery 02/13/23 Per Leahy PA-C 175 [facility] 300 [place] [address] Specialist Neurosurgery 02/13/23 documented as of this encounter
--- OUTSIDE RECORDS SUMMARY | 2024-12-01 14:26 | XMS_ITS | Encounter Summary ---
Author Organization [facility] Address [address] [place] [address] Care Team Providers Care Retail Product Demo Specialist Name Role Phone Mily Lawrence MD Primary Care Provider [phone] Ralf Gastelum MD Unavailable [phone] Gretchen Juan MD Unavailable [phone] Katherine Snow PA-C Unavailable [phone] Per Leahy PA-C Unavailable [phone] Reason for Visit * Reason Comments E-prescribe Rx Request Encounter Details Date Type Department Care Team Description 08/17/2021 Refill Internal Medicine - [address], [address] [place] [address] Mily Lawrence MD [address] [place] [phone] E-prescribe Rx Request Social History Tobacco [...] HOURS LAST REFILL 03/13/2021 #90 1 REFILL INFECTION CONTROL COORDINATOR ON DESK * Telephone Encounter - Yulissa Blank - 08/18/2021 11:16 AM EDT [place] 05/10/21 NOV 08/31/21 documented in this encounter Plan of Treatment Not on file documented as of this encounter Visit Diagnoses Diagnosis Need for prophylactic vaccination and inoculation against viral hepatitis Mixed hyperlipidemia Essential hypertension, benign Urinary tract infection without hematuria, site unspecified documented in this encounter Care Teams Retail Product Demo Specialist Relationship Specialty Start Date End Date Mily Lawrence MD PCP - General Internal Medicine 03/09/19 Ralf Gastelum MD 300 [facility] 154 [place] [address] Specialist Cardiovascular Disease 06/08/22 Gretchen Juan MD 175 [facility] 300 [place] [address] Surgeon Neurosurgery 02/13/23 Katherine Snow PA-C [address] [address] Specialist Neurosurgery 02/13/23 Per Leahy PA-C [address] [address] Specialist Neurosurgery 02/13/23 documented as of this encounter
--- OUTSIDE RECORDS SUMMARY | 2024-12-01 14:26 | XMS_ITS | Encounter Summary ---
Author Organization [facility] Address [address] [place] [address] Care Team Providers Care Dairy Scientist Name Role Phone Mily Lawrence MD Primary Care Provider [phone] Ralf Gastelum MD Unavailable [phone] Gretchen Juan MD Unavailable [phone] Katherine Snow PA-C Unavailable [phone] Per Leahy PA-C Unavailable [phone] Reason for Visit * Reason Comments E-prescribe Rx Request Encounter Details Date Type Department Care Team Description 10/05/2021 Refill Internal Medicine - [address], [address] [place] [address] Mily Lawrence MD [address] [place] [phone] E-prescribe Rx Request Social History Tobacco [...] on filedocumented in this encounter Care Teams Dairy Scientist Relationship Specialty Start Date End Date Mily Lawrence MD PCP - General Internal Medicine 03/09/19 Ralf Gastelum MD 300 [facility] [address] [place] [address] Specialist Cardiovascular Disease 06/08/22 Gretchen Juan MD 175 [facility] 300 [place] [address] Surgeon Neurosurgery 02/13/23 Katherine Snow PA-C [address] [address] Specialist Neurosurgery 02/13/23 Per Leahy PA-C [address] [address] Specialist Neurosurgery 02/13/23 documented as of this encounter
--- OUTSIDE RECORDS SUMMARY | 2024-12-01 14:26 | XMS_ITS | Encounter Summary ---
Author Organization [facility] Address [address] [place] [address] Care Team Providers Care Disaster Recovery Specialist Name Role Phone Mily Lawrence MD Primary Care Provider [phone] Ralf Gastelum MD Unavailable [phone] Gretchen Juan MD Unavailable [phone] Katherine Snow PA-C Unavailable [phone] Per Leahy PA-C Unavailable [phone] Encounter Details Date Type Department Care Team Description 09/22/2019 Filament Shaper Report Medical Records [address] [place] [address] Camilla Lopez MD Social History Tobacco Use [...] on filedocumented in this encounter Care Teams Disaster Recovery Specialist Relationship Specialty Start Date End Date Mily Lawrence MD PCP - General Internal Medicine 03/09/19 Ralf Gastelum MD 300 [facility] [address] [place] [address] Specialist Cardiovascular Disease 06/08/22 Gretchen Juan MD 175 [facility] 300 [place] [address] Surgeon Neurosurgery 02/13/23 Katherine Snow PA-C 175 [facility] 300 [place] [address] Specialist Neurosurgery 02/13/23 Per Leahy PA-C 175 [facility] 300 [place] [address] Specialist Neurosurgery 02/13/23 documented as of this encounter
--- OUTSIDE RECORDS SUMMARY | 2024-12-01 14:26 | XMS_ITS | Encounter Summary ---
Author Organization [facility] Address [address] [place] [address] Care Team Providers Care Lithographic Plate Maker Name Role Phone Mily Lawrence MD Primary Care Provider [phone] Ralf Gastelum MD Unavailable [phone] Gretchen Juan MD Unavailable [phone] Katherine Snow PA-C Unavailable [phone] Per Leahy PA-C Unavailable [phone] Reason for Visit * Reason Onset Date Comments Medication 10/16/2021 Encounter Details Date Type Department Care Team Description 10/16/2021 Telephone Internal Medicine - [address], [address] [place], [place] [phone] Mily Lawrence MD [address] [place] [phone] Medication Social History Tobacco Use Types Packs/Day Years [...] have Coronavirus / COVID-19? No / Unsure 10/10/2021 3:18 PM EST documented as of this encounter Miscellaneous Notes * Telephone Encounter - Leatha Warren M.A. - 10/27/2021 9:56 AM EST I called pt no answer lvm to call back * Telephone Encounter - Mily Lawrence MD - 10/27/2021 6:49 AM EST No, she does not need anymore, Ask her to go for the physical therapy order placed and also the neurologist * Telephone Encounter - Alexandria Grace - 10/26/2021 3:[address] Lawrence please advise. * Telephone Encounter - Sujatha Beatty - 10/26/2021 3:45 PM EST Patient called today re: Re-order for prednisone and the antiviral medication that she On Still complaing of overall pain and headache-face still paralyzed. Needs medication * Telephone Encounter - Carlie Carias L.P.N. - 10/17/2021 10:10 AM EST Patient made aware per Dr Lawrence no more prednisone needed patient does have telehealth with Dr Lawrence today 3;30 pm will discuss then * Telephone Encounter - Mily Lawrence MD - 10/16/2021 3:28 PM EST No she does not need more prednisone. * Telephone Encounter - Portia Kendrick - 10/16/2021 3:07 PM EST Will you continue patient on prednisone for [place] Palsey? * Telephone Encounter - Sapna Concepcion - 10/16/2021 1:07 PM EST Caller requesting call back from provider: Is the caller the patient? YES If caller is not the patient, what is the callers name? N/A Callers relationship to patient? N/A If person calling is not the patient themselves, is there a verbal release in FYI or permanent comments for this person: NO Reason for call back: Patient is asking for a refill for Prednisone, patient was diagnosed with chase palsey in the emergency room as is out of medication. Caller offered to speak with the nurse for assistance: YES Response: Patient offered to speak with nurse for assistance and patient agreed. Message forwarded to nurse. documented in this encounter Plan of Treatment Not on file documented as of this encounter Visit Diagnoses Not on filedocumented in this encounter Care Teams Lithographic Plate Maker Relationship Specialty Start Date End Date Mily Lawrence MD PCP - General Internal Medicine 03/09/19 Ralf Gastelum MD [address] [place] [address] Specialist Cardiovascular Disease 06/08/22 Gretchen Juan MD [address] [address] Surgeon Neurosurgery 02/13/23 Katherine Snow PA-C [address] [address] Specialist Neurosurgery 02/13/23 Per Leahy PA-C [address] [address] Specialist Neurosurgery 02/13/23 documented as of this encounter
--- OUTSIDE RECORDS SUMMARY | 2024-12-01 14:26 | XMS_ITS | Encounter Summary ---
Author Organization [facility] Address [address] [place] [address] Care Team Providers Care Nutrition Teacher Name Role Phone Mily Lawrence MD Primary Care Provider [phone] Trey Mueller MD Primary Care Provider Unavaila ble Mily Lawrence MD Primary Care Provider [phone] Ralf Gastelum MD Unavailable [phone] Gretchen Juan MD Unavailable [phone] Katherine Snow PA-C Unavailable [phone] Per Leahy PA-C Unavailable [phone] Encounter Details Date Type Department Care Team Description 11/24/2018 Release of Information Medical Records [address] [place] [id number] Abstract, Provider Social History Tobacco Use Types [...] on filedocumented in this encounter Care Teams Nutrition Teacher Relationship Specialty Start Date End Date Mily Lawrence MD PCP - General Internal Medicine 03/13/17 01/01/19 Trey Mueller MD PCP - General Internal Medicine 01/02/19 03/08/19 Mily Lawrence MD PCP - General Internal Medicine 03/09/19 Ralf Gastelum MD 300 [facility] 154 [place] [address] Specialist Cardiovascular Disease 06/08/22 Gretchen Juan MD [address] [address] Surgeon Neurosurgery 02/13/23 Katherine Snow PA-C [address] [address] Specialist Neurosurgery 02/13/23 Per Leahy PA-C [address] [address] Specialist Neurosurgery 02/13/23 documented as of this encounter
--- OUTSIDE RECORDS SUMMARY | 2024-12-01 14:26 | XMS_ITS | Encounter Summary ---
Author Organization [facility] Address [address] [place] [address] Care Team Providers Care Clip Coater Name Role Phone Mily Lawrence MD Primary Care Provider [phone] Ralf Gastelum MD Unavailable [phone] Gretchen Juan MD Unavailable [phone] Katherine Snow PA-C Unavailable [phone] Per Leahy PA-C Unavailable [phone] Encounter Details Date Type Department Care Team Description 10/25/2022 Telephone [facility] 175 [facility] [address] [place] [phone] Marci Bernardo PA-C 175 [facility] [address] [place] [address] Social History Tobacco Use Types Packs/Day Years [...] suspected to have Coronavirus/COVID-19? No / Unsure 10/09/2022 1:59 PM EST documented as of this encounter Miscellaneous Notes * Telephone Encounter - Barby Ybarra - 10/25/2022 2:09 PM EST Ange called in asking if there was anyway you could give her a call. She stated that last injection she received did not help at all and now her knee keeps buckling down and she is in a lot of pain.Please give her a call if possible Thank you documented in this encounter Plan of Treatment Not on file documented as of this encounter Visit Diagnoses Not on filedocumented in this encounter Care Teams Clip Coater Relationship Specialty Start Date End Date Mily Lawrence MD PCP - General Internal Medicine 03/09/19 Ralf Gastelum MD 300 [facility] [address] [place] [address] Specialist Cardiovascular Disease 06/08/22 Gretchen Juan MD [address] [address] Surgeon Neurosurgery 02/13/23 Katherine Snow PA-C [address] [address] Specialist Neurosurgery 02/13/23 Per Leahy PA-C [address] [address] Specialist Neurosurgery 02/13/23 documented as of this encounter
--- OUTSIDE RECORDS SUMMARY | 2024-12-01 14:26 | XMS_ITS | Encounter Summary ---
Author Organization [facility] Address [address] [place] [address] Care Team Providers Care Automatic Pilot Mechanic Name Role Phone Mily Lawrence MD Primary Care Provider [phone]- [phone] Ralf Gastelum MD Unavailable [phone] Gretchen Juan MD Unavailable [phone] Katherine Snow PA-C Unavailable [phone] Per Leahy PA-C Unavailable [phone] Encounter Details Date Type Department Care Team Description 07/14/2021 Orders Only Medical Records [address] [place] [address] Marci Bernardo PA-C [address] [address] Social History Tobacco Use Types Packs/Day Years [...] on filedocumented in this encounter Care Teams Automatic Pilot Mechanic Relationship Specialty Start Date End Date Mily Lawrence MD PCP - General Internal Medicine 03/09/19 Ralf Gastelum MD 300 [facility] [address] [place] [address] Specialist Cardiovascular Disease 06/08/22 Gretchen Juan MD [address] [address] Surgeon Neurosurgery 02/13/23 Katherine Snow PA-C 175 [facility] 300 [place] [address] Specialist Neurosurgery 02/13/23 Per Leahy PA-C 175 [facility] 300 [place] [address] Specialist Neurosurgery 02/13/23 documented as of this encounter
--- OUTSIDE RECORDS SUMMARY | 2024-12-01 14:26 | XMS_ITS | Encounter Summary ---
Author Organization [facility] Address [address] [place] [address] Care Team Providers Care Front Load Trash Truck Driver Name Role Phone Mily Lawrence MD Primary Care Provider Ralf Gastelum MD Unavailable [phone] Gretchen Juan MD Unavailable [phone] Katherine Snow PA-C Unavailable [phone] Per Leahy PA-C Unavailable [phone] Reason for Referral * EXTERNAL (Routine) - Authorized/Booked Specialty Diagnoses / Procedures Referred By Jonny breaux Referred To Contact Neurology Procedures REFERRAL TO NEUROLOGY Mily Lawrence MD [address] [place] [phone] Robi Loomis MD Referral ID Status Reason Start Date Expiration Date V isits Requested Visits Authorized SEE NOTE Authorized/B ooked 06/01/2019 09/03/2019 1 1 Reason for Visit * Reason Onset Date Comments other 05/29/2019 ? neuro referral Encounter Details Date Type Department Care Team Description 05/29/2019 Telephone Internal Medicine - [place] 175 [facility], [address] [place], [place] [id number] Mily Lawrence MD [address] [place] [phone] other (? neuro referral) Social History Tobacco Use Types Packs/Day Years [...] Telephone Encounter - Mily Lawrence MD - 06/01/2019 8:01 AM EDT Order placed * Telephone Encounter - Alyce Vázquez R.N. - 05/29/2019 8:44 AM EDT CCM team met patient yesterday to enroll in [facility]. She reports she has noticed in the past year that she has become more forgetful, has difficulty forming words/sentences and at time doesn't hear well.She is concerned these sx could be a neurological issue. She has not reported sx to providers. She is open to coming in for an appt to discuss sx and/or referral to neurology. Please advise. Thank you Alyce Vázquez bleach boiler filler Manager with [facility] Edita Zaldivar @ 175 [facility] [phone] documented in this encounter Plan of Treatment Not on file documented as of this encounter Visit Diagnoses Not on filedocumented in this encounter Care Teams Front Load Trash Truck Driver Relationship Specialty Start Date End Date Mily Lawrence MD PCP - General Internal Medicine 03/09/19 Ralf Gastelum MD 300 [facility] [address] [place] [address] Specialist Cardiovascular Disease 06/08/22 Gretchen Juan MD 175 [facility] 300 [place] [address] Surgeon Neurosurgery 02/13/23 Katherine Snow PA-C 175 [facility] 300 [place] [address] Specialist Neurosurgery 02/13/23 Per Leahy PA-C 175 [facility] 300 [place] [address] Specialist Neurosurgery 02/13/23 documented as of this encounter
--- OUTSIDE RECORDS SUMMARY | 2024-12-01 14:26 | XMS_ITS | Encounter Summary ---
Author Organization [facility] Address [address] [place] [address] Care Team Providers Care Supervisor Claims Name Role Phone Mily Lawrence MD Primary Care Provider [phone] Ralf Gastelum MD Unavailable [phone] Gretchen Juan MD Unavailable [phone] Katherine Snow PA-C Unavailable [phone] Per Leahy PA-C Unavailable [phone] Reason for Visit * Reason Onset Date Comments Menstrual Problems 07/21/2019 Encounter Details Date Type Department Care Team Description 07/21/2019 Telephone Internal Medicine - [address], [address] [place], [place] [phone] Mily Lawrence MD [address] [place] [phone] Menstrual Problems Social History Tobacco Use [...] 07/23/19. Please advise. Thank you Alyce Vázquez financial sales associate Manager with [facility] @[address] [place] [address] [phone] documented in this encounter Plan of Treatment Not on file documented as of this encounter Visit Diagnoses Not on filedocumented in this encounter Care Teams Supervisor Claims Relationship Specialty Start Date End Date Mily Lawrence MD PCP - General Internal Medicine 03/09/19 Ralf Gastelum MD 300 [facility] [address] [place] [address] Specialist Cardiovascular Disease 06/08/22 Gretchen Juan MD 175 [facility] 300 [place] [address] Surgeon Neurosurgery 02/13/23 Katherine Snow PA-C [address] [address] Specialist Neurosurgery 02/13/23 Per Leahy PA-C 175 [facility] [address] [place] [address] Specialist Neurosurgery 02/13/23 documented as of this encounter
--- OUTSIDE RECORDS SUMMARY | 2024-12-01 14:26 | XMS_ITS | Encounter Summary ---
Author Organization [facility] Address [address] [place] [address] Care Team Providers Care Slate Cutter Name Role Phone Mily Lawrence MD Primary Care Provider [phone] Trey Mueller MD Primary Care Provider Unavaila ble Mily Lawrence MD Primary Care Provider [phone] Ralf Gastelum MD Unavailable [phone] Gretchen Juan MD Unavailable [phone] Katherine Snow PA-C Unavailable [phone] Per Leahy PA-C Unavailable [phone] Encounter Details Date Type Department Care Team Description 10/22/2018 Roll Panner Report Medical Records [address] [place] [address] Marci Bernardo PA-C [address] [place] [address] Social History Tobacco Use Types Packs/Day Years [...] on filedocumented in this encounter Care Teams Slate Cutter Relationship Specialty Start Date End Date Mily Lawrence MD PCP - General Internal Medicine 03/13/17 01/01/19 Trey Mueller MD PCP - General Internal Medicine 01/02/19 03/08/19 Mily Lawrence MD PCP - General Internal Medicine 03/09/19 Ralf Gastelum MD 300 [facility] 154 [place] [address] Specialist Cardiovascular Disease 06/08/22 Gretchen Juan MD [address] [address] Surgeon Neurosurgery 02/13/23 Katherine Snow PA-C [address] [address] Specialist Neurosurgery 02/13/23 Per Leahy PA-C [address] [address] Specialist Neurosurgery 02/13/23 documented as of this encounter
--- OUTSIDE RECORDS SUMMARY | 2024-12-01 14:26 | XMS_ITS | Encounter Summary ---
Author Organization [facility] Address [address] [place] [address] Care Team Providers Care Hoop Flaring Machine Operator Helper Name Role Phone Mily Lawrence MD Primary Care Provider [phone] Ralf Gastelum MD Unavailable [phone] Gretchen Juan MD Unavailable [phone] Katherine Snow PA-C Unavailable [phone] Per Leahy PA-C Unavailable [phone] Encounter Details Date Type Department Care Team Description 08/18/2019 Quiller Machine Fixer Report Medical Records [address] [place] [address] Gretchen Juan MD [address] [place] [address] [address] [place], [place] [phone] Social History Tobacco Use Types Packs/Day Years [...] on filedocumented in this encounter Care Teams Hoop Flaring Machine Operator Helper Relationship Specialty Start Date End Date Mily Lawrence MD PCP - General Internal Medicine 03/09/19 Ralf Gastelum MD 300 [facility] [address] [place] [address] Specialist Cardiovascular Disease 06/08/22 Gretchen Juan MD 175 [facility] 300 [place] [address] Surgeon Neurosurgery 02/13/23 Katherine Snow PA-C 175 [facility] 300 [place] [address] Specialist Neurosurgery 02/13/23 Per Leahy PA-C [address] [facility] 300 [place] [address] Specialist Neurosurgery 02/13/23 documented as of this encounter
--- OUTSIDE RECORDS SUMMARY | 2024-12-01 14:27 | XMS_ITS | Encounter Summary ---
Author Organization [facility] Address [address] [place] [address] Care Team Providers Care Credit Risk Review Officer Name Role Phone Trey Mueller MD Primary Care Provider Unavaila ble Mily Lawrence MD Primary Care Provider +[phone]- [phone] Ralf Gastelum MD Unavailable [phone] Gretchen Juan MD Unavailable [phone] Katherine Snow PA-C Unavailable [phone] Per Leahy PA-C Unavailable [phone] Encounter Details Date Type Department Care Team Description 02/04/2019 [facility] Medical Records [address] [place] [id number] [place] [address] Social History Tobacco Use Types Packs/Day Years [...] on filedocumented in this encounter Care Teams Credit Risk Review Officer Relationship Specialty Start Date End Date Trey Mueller MD PCP - General Internal Medicine 01/02/19 03/08/19 Mily Lawrence MD PCP - General Internal Medicine 03/09/19 Ralf Gastelum MD 300 [facility] [address] [place] [address] Specialist Cardiovascular Disease 06/08/22 Gretchen Juan MD 175 [facility] 300 [place] [address] Surgeon Neurosurgery 02/13/23 Katherine Snow PA-C 175 [facility] 300 [place] [address] Specialist Neurosurgery 02/13/23 Per Leahy PA-C 175 [facility] 300 [place] [address] Specialist Neurosurgery 02/13/23 documented as of this encounter
--- OUTSIDE RECORDS SUMMARY | 2024-12-01 14:27 | XMS_ITS | Encounter Summary ---
Author Organization [facility] Address [address] [place] [address] Care Team Providers Care Housekeeping Laundry Worker Name Role Phone Mily Lawrence MD Primary Care Provider +1 [phone] Ralf Gastelum MD Unavailable [phone] Gretchen Juan MD Unavailable [phone] Katherine Snow PA-C Unavailable [phone] Per Leahy PA-C Unavailable [phone] Reason for Visit * Reason Comments E-prescribe Rx Request Encounter Details Date Type Department Care Team Description 03/16/2020 [facility] Internal Medicine - [address], [address] [place] [address] Mily Lawrence MD [address] [place] [phone] E-prescribe Rx Request Social History Tobacco [...] Telephone Encounter - Annie Gorman M.A. - 03/17/2020 8:56 AM EDT Lab Results Component Value Date NA 138 10/28/2019 K 3.6 10/28/2019 CO2 28 10/28/2019 CL 105 10/28/2019 BUN 16 10/28/2019 CREAT 0.90 10/28/2019 GLU 85 10/28/2019 ALB 4.1 10/28/2019 SGOT 21 10/28/2019 SGPT 28 10/28/2019 TBILI 0.7 10/28/2019 ALKPHOS 53 10/28/2019 TP 7.4 10/28/2019 CA 9.5 10/28/2019 GFR > 60 10/28/2019 * Telephone Encounter - Kyra Rosibel - 03/16/2020 4:22 PM EDT Patient would like script to be: E-PRESCRIBED/FAXED TO PHARMACY WHEN WAS THE PATIENT'S LAST APPOINTMENT IN ADULT MEDICINE? 02/17/2020 WHEN WAS THE LAST TIME THE PATIENT SAW THEIR PCP? Same as above Does patient have an upcoming appointment? Yes 04/27/2020 (THE MEDICATION REQUESTED IS ON THE MED [...] N/A Patients current insurance carrier is: Payor: [employer] FFS / Plan: [place] / Product Type: MEDICAID RISK documented in this encounter Plan of Treatment Not on file documented as of this encounter Visit Diagnoses Not on filedocumented in this encounter Care Teams Housekeeping Laundry Worker Relationship Specialty Start Date End Date Mily Lawrence MD PCP - General Internal Medicine 03/09/19 Ralf Gastelum MD 300 [facility] [address] [place] [address] Specialist Cardiovascular Disease 06/08/22 Gretchen Juan MD 175 [facility] 300 [place] [address] Surgeon Neurosurgery 02/13/23 Katherine Snow PA-C [address] [address] Specialist Neurosurgery 02/13/23 Per Leahy PA-C [address] [address] Specialist Neurosurgery 02/13/23 documented as of this encounter
--- OUTSIDE RECORDS SUMMARY | 2024-12-01 14:27 | XMS_ITS | Encounter Summary ---
Author Organization [facility] Address [address] [place] [address] Care Team Providers Care Broiler Manager Name Role Phone Mily Lawrence MD Primary Care Provider +1 [phone] Ralf Gastelum MD Unavailable [phone] Gretchen Juan MD Unavailable [phone] Katherine Snow PA-C Unavailable [phone] Per Leahy PA-C Unavailable [phone] Reason for Visit * Reason Comments E-prescribe Rx Request Encounter Details Date Type Department Care Team Description 06/01/2020 [facility] Internal Medicine [address], [address] [place] [address] Mily Lawrence MD [address] [place] [phone] E-prescribe Rx Request Social History Tobacco [...] sciatica documented in this encounter Care Teams Broiler Manager Relationship Specialty Start Date End Date Mily Lawrence MD PCP - General Internal Medicine 03/09/19 Ralf Gastelum MD 300 [facility] 154 [place] [address] Specialist Cardiovascular Disease 06/08/22 Gretchen Juan MD [address] [address] Surgeon Neurosurgery 02/13/23 Katherine Snow PA-C [address] [address] Specialist Neurosurgery 02/13/23 Per Leahy PA-C 175 [facility] [address] [place] [address] Specialist Neurosurgery 02/13/23 documented as of this encounter
--- OUTSIDE RECORDS SUMMARY | 2024-12-01 14:27 | XMS_ITS | Encounter Summary ---
Author Organization [facility] Address [address] [place] [address] Care Team Providers Care Axle Polisher Name Role Phone Trey Mueller MD Primary Care Provider Unavaila ble Mily Lawrence MD Primary Care Provider [phone]- [phone] Ralf Gastelum MD Unavailable [phone] Gretchen Juan MD Unavailable [phone] Katherine Snow PA-C Unavailable [phone] Per Leahy PA-C Unavailable [phone] Encounter Details Date Type Department Care Team Description 02/01/2019 Electrician Substation Supervisor Report Medical Records [address] [place] [address] Evelio Smith Social History Tobacco Use Types [...] on filedocumented in this encounter Care Teams Axle Polisher Relationship Specialty Start Date End Date Trey Mueller MD PCP - General Internal Medicine 01/02/19 03/08/19 Mily Lawrence MD PCP - General Internal Medicine 03/09/19 Ralf Gastelum MD 300 [facility] [address] [place] [address] Specialist Cardiovascular Disease 06/08/22 Gretchen Juan MD [address] [facility] 300 [place] [address] Surgeon Neurosurgery 02/13/23 Katherine Snow PA-C 175 [facility] 300 [place] [address] Specialist Neurosurgery 02/13/23 Per Leahy PA-C 175 [facility] 300 [place] [address] Specialist Neurosurgery 02/13/23 documented as of this encounter
--- OUTSIDE RECORDS SUMMARY | 2024-12-01 14:27 | XMS_ITS | Encounter Summary ---
Author Organization [facility] Address [address] [place] [address] Care Team Providers Care Wheel Press Operator Name Role Phone Trey Mueller MD Primary Care Provider Unavaila Mily Mayen MD Primary Care Provider [phone]- [phone] Ralf Gastelum MD Unavailable [phone] Gretchen Juan MD Unavailable [phone] Katherine Snow PA-C Unavailable [phone] Per Leahy PA-C Unavailable [phone] Reason for Visit * Reason Onset Date Comments refill request 03/04/2019 Encounter Details Date Type Department Care Team Description 03/04/2019 Refill Internal Medicine - [address], [address] [place] [address] Trey Mueller MD refill request Social History [...] on filedocumented in this encounter Care Teams Wheel Press Operator Relationship Specialty Start Date End Date Trey Mueller MD PCP - General Internal Medicine 01/02/19 03/08/19 Mily Lawrence MD PCP - General Internal Medicine 03/09/19 Ralf Gastelum MD 300 [facility] [address] [place] [address] Specialist Cardiovascular Disease 06/08/22 Gretchen Juan MD 175 [facility] 300 [place] [address] Surgeon Neurosurgery 02/13/23 Katherine Snow PA-C [address] [address] Specialist Neurosurgery 02/13/23 Per Leahy PA-C [address] [address] Specialist Neurosurgery 02/13/23 documented as of this encounter
--- OUTSIDE RECORDS SUMMARY | 2024-12-01 14:27 | XMS_ITS | Encounter Summary ---
Author Organization [facility] Address [address] [place] [address] Care Team Providers Care Airborne Sensor Specialist Name Role Phone Mily Lawrence MD Primary Care Provider [phone] Ralf Gastelum MD Unavailable [phone] Gretchen Juan MD Unavailable [phone] Katherine Snow PA-C Unavailable [phone] Per Leahy PA-C Unavailable [phone] Encounter Details Date Type Department Care Team Description 12/16/2019 Granite Polisher Report Medical Records [address] [place] [address] Magdi Daniel MD [address] [place] [address] Social History Tobacco Use Types Packs/Day Years [...] on filedocumented in this encounter Care Teams Airborne Sensor Specialist Relationship Specialty Start Date End Date Mily Lawrence MD PCP - General Internal Medicine 03/09/19 Ralf Gastelum MD 300 [facility] [address] [place] [address] Specialist Cardiovascular Disease 06/08/22 Gretchen Juan MD 175 [facility] 300 [place] [address] Surgeon Neurosurgery 02/13/23 Katherine Snow PA-C 175 [facility] 300 [place] [address] Specialist Neurosurgery 02/13/23 Per Leahy PA-C 175 [facility] 300 [place] [address] Specialist Neurosurgery 02/13/23 documented as of this encounter
--- OUTSIDE RECORDS SUMMARY | 2024-12-01 14:27 | XMS_ITS | Encounter Summary ---
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 Machine Operator Report Medical Records [address] [place] [address] Evelio Smith Social History Tobacco Use Types [...] on filedocumented in this encounter Care Teams Pediatric Physiatrist Relationship Specialty Start Date End Date Mily Lawrence MD PCP - General Internal Medicine 03/09/19 Ralf Gastelum MD 300 [facility] [address] [place] [address] Specialist Cardiovascular Disease 06/08/22 Gretchen Juan MD 175 [facility] 300 [place] [address] Surgeon Neurosurgery 02/13/23 Katherine Snow PA-C 175 [facility] 300 [place] [address] Specialist Neurosurgery 02/13/23 Per Leahy PA-C 175 [facility] 300 [place] [address] Specialist Neurosurgery 02/13/23 documented as of this encounter
--- OUTSIDE RECORDS SUMMARY | 2024-12-01 14:27 | XMS_ITS | Encounter Summary ---
Author Organization [facility] Address [address] [place] [address] Care Team Providers Care Group President Name Role Phone Mily Lawrence MD Primary Care Provider [phone] Reason for Visit * Reason Onset Date Comments Med Refill 09/29/2024 Encounter Details Date Type Department Care Team (Late st Contact Info) Description 09/29/2024 Telephone Orthopedic Surgery - [place] 160 175 [facility] [address] [place] [address] Aida White PA 175 [facility] [address] [place] [address] Med Refill Social History Tobacco Use Types Packs/Day Years Used Date Smoking Tobacco: Never Smokeless Tobacco: Never Alcohol Use Standard Drinks/Week Comments Yes 6 (1 standard drink = 0.6 oz pur e alcohol) Comments Unknown Sex and Gender Information Value Date Recorded Sex Assigned at Female 08/24/2024 4:29 PM EST Legal Sex Female 11:54 AM EST Gender Identity Female 08/24/2024 4:29 PM EST Sexual Orientation Straight 08/24/2024 4: 43 PM EST documented as of this encounter Progress Notes * Marci Garrido - 09/29/2024 12:12 PM EST Pt is requesting a refill on Gabapentin [facility] documented in this encounter Plan of Treatment Upcoming Encounters Date Type Department Care Team (Late st Contact Info) Description 12/29/2024 3:00 PM EDT Office Visit Internal Medicine - [place] [address] [facility] [address] [place] [address] Mily Lawrence MD [address] [facility] [address] [place] [address] 12/30/2024 3:00 PM EDT Office Visit Orthopedic Surgery [facility] [address] [facility] [address] [place] [phone] Aida White PA [address] [facility] 160 [place] [address] 02/09/2025 2:30 PM EDT Office Visit [facility] [address] [place] [address] Ralf Gastelum MD [address] [place] [address] 03/03/2025 3:30 PM EDT Office Visit Orthopedic Surgery [facility] [address] [facility] [address] [place] [phone] Brian Ferrari MD [address] [facility] [address] [place] [address] 03/04/2025 3:30 PM EDT Office Visit Orthopedic Surgery [facility] [address] [facility] [address] [place] [address] Brian Ferrari MD [address] [facility] [address] [place] [address] documented as of this encounter Visit Diagnoses Not on filedocumented in this encounter Care Teams Group President Relationship Specialty Start Date End Date Mily Lawrence MD [address] [place] [phone] PCP - General Internal Medicine 09/24/16 documented as of this encounter
--- OUTSIDE RECORDS SUMMARY | 2024-12-01 14:27 | XMS_ITS | Encounter Summary ---
Author Organization [facility] Address [address] [place] [address] Care Team Providers Care Furnace Puncher Name Role Phone Mily Lawrence MD Primary Care Provider [phone] Ralf Gastelum MD Unavailable [phone] Gretchen Juan MD Unavailable [phone] Katherine Snow PA-C Unavailable [phone] Per Leahy PA-C Unavailable [phone] Encounter Details Date Type Department Care Team Description 05/12/2019 Orders Only Medical Records [address] [place] [address] Abstract, Provider Breast microcalcification, mammographic Social History [...] MAMMO INCL CAD BI (05/11/2019) Irish 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 documented in this encounter Visit Diagnoses Diagnosis Breast microcalcification, mammographic Mammographic microcalcification documented in this encounter Care Teams Furnace Puncher Relationship Specialty Start Date End Date Mily Lawrence MD PCP - General Internal Medicine 03/09/19 Ralf Gastelum MD 300 [facility] [address] [place] [address] Specialist Cardiovascular Disease 06/08/22 Gretchen Juan MD [address] [address] Surgeon Neurosurgery 02/13/23 Katherine Snow PA-C 175 [facility] 300 [place] [address] Specialist Neurosurgery 02/13/23 Per Leahy PA-C 175 [facility] 300 [place] [address] Specialist Neurosurgery 02/13/23 documented as of this encounter
--- OUTSIDE RECORDS SUMMARY | 2024-12-01 14:27 | XMS_ITS | Encounter Summary ---
Author Organization [facility] Address [address] [place] [address] Care Team Providers Care Sales Service Technician Name Role Phone Mily Lawrence MD Primary Care Provider [phone] Trey Mueller MD Primary Care Provider Unavaila ble Mily Lawrence MD Primary Care Provider [phone] Ralf Gastelum MD Unavailable [phone] Gretchen Juan MD Unavailable [phone] Katherine Snow PA-C Unavailable [phone] Per Leahy PA-C Unavailable [phone] Reason for Visit * Reason Onset Date Comments Pre Op Visit 12/25/2018 Encounter Details Date Type Department Care Team Description 12/25/2018 Telephone Internal Medicine - [address], [address] [place] [address] Mily aLwrence MD [address] [place] [phone] Pre Op Visit Social History Tobacco Use Types Packs/Day Years [...] encounter Miscellaneous Notes * Telephone Encounter - Shala Hirsch - 12/25/2018 3:54 PM EST Date of surgery:02/03/19 What surgery is patient having (gall bladder, cataract, appendix, etc...)?: Right total knee replacement Surgeon's name: Magdi Daniel Office phone number of surgeon: [phone] Fax # for surgeons office: [phone] Where is surgery being performed? [facility] Admitting Diagnosis/problem for surgery: Osteoarthritis PCP: Mily Lawrence Did you verify that the insurance below is correct? YES Patients insurance: Payor: [facility] FFS / Plan: [employer] / Product Type: MEDICAID RISK documented in this encounter Plan of Treatment Not on file documented as of this encounter Visit Diagnoses Not on filedocumented in this encounter Care Teams Sales Service Technician Relationship Specialty Start Date End Date Mily Lawrence MD PCP - General Internal Medicine 03/13/17 01/01/19 Trey Mueller MD PCP - General Internal Medicine 01/02/19 03/08/19 Mily Lawrence MD PCP - General Internal Medicine 03/09/19 Ralf Gastelum MD 300 [facility] [address] [place] [address] Specialist Cardiovascular Disease 06/08/22 Gretchen Juan MD [address] [address] Surgeon Neurosurgery 02/13/23 Katherine Snow PA-C [address] [address] Specialist Neurosurgery 02/13/23 Per Leahy PA-C [address] [address] Specialist Neurosurgery 02/13/23 documented as of this encounter
--- OUTSIDE RECORDS SUMMARY | 2024-12-01 14:27 | XMS_ITS | Encounter Summary ---
Author Organization [facility] Address [address] [place] [address] Care Team Providers Care Meeting Planner Name Role Phone Mily Lawrence MD Primary Care Provider [phone] Ralf Gastelum MD Unavailable [phone] Gretchen Juan MD Unavailable [phone] Katherine Snow PA-C Unavailable [phone] Per Leahy PA-C Unavailable [phone] Encounter Details Date Type Department Care Team Description 06/20/2020 [facility] Medical Records [address] [place] [id number] Abstract, Provider Social History Tobacco Use Types [...] on filedocumented in this encounter Care Teams Meeting Planner Relationship Specialty Start Date End Date Mily Lawrence MD PCP - General Internal Medicine 03/09/19 Ralf Gastelum MD 300 [facility] [address] [place] [address] Specialist Cardiovascular Disease 06/08/22 Gretchen Juan MD 175 [facility] 300 [place] [address] Surgeon Neurosurgery 02/13/23 Katherine Snow PA-C 175 [facility] 300 [place] [address] Specialist Neurosurgery 02/13/23 Per Leahy PA-C 175 [facility] 300 [place] [address] Specialist Neurosurgery 02/13/23 documented as of this encounter
--- OUTSIDE RECORDS SUMMARY | 2024-12-01 14:27 | XMS_ITS | Clinical Summary ---
Author Organization [facility] Address [address] [place] [address] Phone Care Team Providers Care Environmental Web Crawler Name Role Phone Michael Lawrence MD Primary Care Provider [phone] Allergies Active Allergy Reactions Criticality Noted Date Comments Adhesive Tape-Silicones Rash 01/04/2021 Paper tape Sulfa (Sulfonamide Antibiotics) Hives 04/05/2015 Sulfate Ion Hives Medium 03/14/2017 Medications multivitamin (MULTIPLE VITAMINS ORAL) Take 1 tablet by mouth 1 (one) time each day. 03/20/20 24 Active polyethylene glycol (MIRALAX) 17 gram packet Take 17 g by mouth 1 (one) time each day. 05/10/20 21 Active ubrogepant (Ubrelvy) 100 mg tablet 02/25/20 24 Active acetaminophen (TYLENOL) 500 mg tablet Take 2 tablets (1,000 mg total) by mouth 3 (three) times a day. Active acetaminophen (TYLENOL 8 HOUR) 650 mg 8 hr tablet Take 1 tablet (650 mg total) by mouth every 8 (eight) hours if needed. Active clotrimazole (LOTRIMIN) 1 % cream Apply to skin and toenails daily for 12 weeks 03/26/20 24 Active cyclobenzaprin e (FLEXERIL) 10 mg tablet Take 1 tablet (10 mg total) by mouth 2 (two) times a day. 07/02/20 24 Active diclofenac (VOLTAREN) 1 % topical gel Apply 4 g topically 2 (two) times a day. 02/22/20 22 Active gabapentin (NEURONTIN) 300 mg capsule Take 1 capsule (300 mg total) by mouth 3 (three) times a day. 04/02/20 24 Active galcanezumab-g nlm (Emgality Pen) 120 mg/mL injection pen Inject under the skin. Active ketoconazole (NIZORAL) 2 % shampoo USE ONCE DAILY A FACE WASH Active nystatin (MYCOSTATIN) ointment Apply topically to affected areas twice a day for 10 days 05/12/20 24 025 Active onabotulinumto xinA (Botox) 200 unit injection Active ondansetron (ZOFRAN) 4 mg tablet Take 1 tablet (4 mg total) by mouth every 8 (eight) hours if needed for nausea. 05/01/20 22 Active oxyBUTYnin XL (DITROPAN-XL) 10 mg 24 hr tablet Take 1 tablet (10 mg total) by mouth 1 (one) time each day. for 360 days 03/26/20 24 025 Active traMADoL (ULTRAM) 50 mg tablet Take 1 tablet (50 mg total) by mouth every 6 (six) hours if needed for moderate pain or severe pain. 04/16/20 24 Active back brace miscIndication s:S/P lumbar fusion LSO brace. Use when ambulating and for comfort Status post lumbar fusion Length of use: 99 1 each 09/18/20 24 Active metoprolol tartrate (LOPRESSOR) 50 mg tablet Take 1 tablet (50 mg total) by mouth 2 (two) times a day. 180 tablet 3 09/24/20 24 Active lisinopriL (PRINIVIL,ZEST RIL) 30 mg tablet Take 1 tablet (30 mg total) by mouth 1 (one) time each day. 90 tablet 2 09/24/20 24 Active hydroCHLOROthi azide 12.5 mg tablet Take 1 tablet (12.5 mg total) by mouth 1 (one) time each day. 30 each 5 09/24/20 24 025 Active atorvastatin (LIPITOR) 10 mg tablet Take 1 tablet (10 mg total) by mouth 1 (one) time each day. 90 tablet 2 09/24/20 24 Active celecoxib (CeleBREX) 200 mg capsuleIndicat ions:Presence of left artificial knee joint TAKE 1 CAPSULE BY MOUTH TWICE A DAY NEEDED FOR PAIN WITH FOOD AND STAY HYDRATED 56 capsule 3 09/28/20 24 Active omeprazole (PriLOSEC) [address] capsule TAKE 1 CAPSULE BY MOUTH EVERY DAY 30 capsule 2 10/22/19 25 Active Daily-Michelle, with folic acid, 400 mcg tablet TAKE 1 TABLET BY MOUTH EVERY DAY 30 tablet 2 10/22/19 25 Active thiamine 100 mg tablet TAKE 2 AND 1/2 TABS BY MOUTH EVERY DAY 70 tablet 2 10/22/19 25 Active Vitamin B-6 250 mg tablet TAKE 1 TABLET BY MOUTH EVERY DAY 30 tablet 2 10/22/19 25 Active melatonin 3 mg tablet TAKE 1 TABLET BY MOUTH EVERYDAY AT BEDTIME 28 tablet 2 10/22/19 25 Active traZODone (DESYREL) 50 mg tablet TAKE 1 TABLET BY MOUTH EVERYDAY AT BEDTIME 90 tablet 1 11/19/19 25 Active cholecalcifero l (VITAMIN D-3) 50 mcg (2,000 unit) capsule TAKE 1 CAPSULE BY MOUTH EVERY DAY 90 capsule 3 11/19/19 25 Active sertraline (ZOLOFT) 100 mg tablet TAKE 1 TABLET BY MOUTH EVERY DAY 84 tablet 2 11/19/19 25 Active cholecalcifero l (VITAMIN D-3) 50 mcg (2,000 unit) capsule Take 1 capsule (2,000 Units total) by mouth 1 (one) time each day. 11/12/19 24 025 Discontinued sertraline (ZOLOFT) 100 mg tablet Take 1 tablet (100 mg total) by mouth 1 (one) time each day. 11/12/19 24 025 Discontinued traZODone (DESYREL) 50 mg tablet Take 1 tablet (50 mg total) by mouth at bedtime. 05/14/20 24 025 Discontinued amoxicillin (AMOXIL) 500 mg capsule Take 4 capsules (2,000 mg total) by mouth 1 (one) time for 1 dose. Take 1 hour prior to procedure. 4 each 11/08/19 25 025 Active Problems Problem Noted Date Diagnosed Date [...] with anterior spinal instrumentation performed by Dr. Hayward at [facility] [place] [place] in [place]. This the surgery, she has been a patient in rehab at [address] [place] [address]. While there, she is participating in physical [...] 2016 Hyperlipidemia 12/07/2017 Breast microcalcification, mammographic 10/21/19 18 Essential hypertension 03/14/2017 GERD (gastroesophageal reflux disease) 6 Depression with anxiety 01/12/2016 Insomnia 06/09/2015 Vitamin D deficiency 02/15/2015 Encounters Date Type Department Care Team Description 10/06/2024 1:00 PM EST Evaluation [facility] [address] [place] [address] Soha Mckeon M, PT Acute bilateral low back pain without sciatica (Primary Dx); S/P lumbar fusion; Other muscle spasm 10/06/2024 11:30 AM EST Office Visit Orthopedic Surgery [facility] [address] [place] [address] [place] [phone] Brian Ferrari MD Post-operative state (Primary Dx); Status post total left knee replacement; Thigh numbness; Gait instability; Weakness of left hip 10/06/2024 Plan of Care Documentation [facility] [address] [place] [address] 09/29/2024 Telephone Orthopedic Surgery [facility] 160 175 [facility] [address] [place] [phone] Aida White PA Med Refill 09/25/2024 1:00 PM EST Nutrition Internal Medicine [facility] 175 [facility] 200 [place] [phone] Obesity (BMI 30-39.9) (Primary Dx) 09/25/2024 Telephone [facility] 154 300 [facility] [address] [place] [phone] Ralf Gastelum MD Appointment 09/24/2024 1:00 PM EST Office Visit Internal Medicine [facility] 175 [facility] 200 [place] [phone] Michael Lawrence MD Hearing difficulty of both ears (Primary Dx); Essential hypertension 09/24/2024 11:45 AM EST Office Visit Orthopedic Surgery [facility] 160 175 [facility] 160 [place] [phone] Aida White PA Chronic pain of both shoulders (Primary Dx); Nontraumatic incomplete tear of right rotator cuff; Arthritis of right glenohumeral joint; Tendinitis of left rotator cuff 09/18/2024 1:30 PM EST Office Visit Neurosurgery [facility] [address] [place] [phone] Nathan Hayward MD S/P lumbar fusion (Primary Dx) 09/16/2024 Telephone Neurosurgery [facility] [address] [place] [address] Nathan Hayward MD Numbness; Hip Pain; Back Pain 09/15/2024 4:03 PM EST - 09/15/2024 11:59 PM EST Hospital Encounter [facility] Xray [address] [place] [address] S/P lumbar fusion Discharge Disposition: Home or Self Care from Last 3 Months Immunizations Name Administration Dates Next Due Hepatitis B (Silxwoq-E-Tfdcu , Recombivax HB-Adult) 19yo and older 10/27/2019,05/26/2019,04/22/2019 [...] 1 INTERSPACE; Surgeon: Nathan Hayward MD; Location: [facility] Service: Spine; Laterality: N/A; NECK SURGERY 2007 PROCEDURE: HISTORICAL NECK SURGERY; COMMENT: C-spine; arthrodesis HAND SURGERY 1989 Bilateral PROCEDURE: HISTORICAL HAND SURGERY; COMMENT: right tendo repair; left thumb x2; region with pins in place TUBAL LIGATION 2007 PROCEDURE: HISTORICAL TUBAL LIGATION OTHER SURGICAL HISTORY 09/2017 PROCEDURE: CT ARTHRD ANT INTERBODY MIN DSC LUMBAR COLONOSCOPY 2017 PROCEDURE: HISTORICAL COLONOSCOPY TOTAL KNEE ARTHROPLASTY 02/03/2019 Right PROCEDURE: HISTORICAL TOTAL KNEE REPLACE BREAST BIOPSY 10/08/2013 PROCEDURE: CT BX BREAST NEEDLE CORE W/O IMAGING GUIDANCE SPX; COMMENT: in [place],no evidence of malignancy OTHER SURGICAL HISTORY 1997 [...] vein thrombosis (CMS/HCC) D X:Deep vein thrombosis ([facility]);COMMENT:right knee after surgery Sleep apnea 01/30/2018 DX:Sleep [...] replacement; COMMENT: 01/2019 DVT (deep venous thrombosis) ([facility]) 04/01/2019 DX:DVT (deep venous thrombos is) ([facility]); COMMENT: 02/2019 on Xarelto Epigastric pain DX:Epigastric [...] Orientation Straight 08/24/2024 4: 43 PM EST Obstetrics History Last Filed Vital Signs Vital [...] PM EDT Office Visit Internal Medicine - [place] 175 [facility] [address] [place] [address] Michael Lawrence MD 175 [facility] [address] [place] [address] 12/30/2024 3:00 PM EDT Office Visit Orthopedic Surgery - [place] 160 175 [facility] 160 [place] [phone] Aida White PA 175 [facility] 160 [place] [address] 02/09/2025 2:30 PM EDT Office Visit [facility] 154 300 [facility] [address] [place] [phone] Ralf Gastelum MD 300 [facility] 154 [place] [address] 03/03/2025 3:30 PM EDT Office Visit Orthopedic Surgery [facility] [address] [phone] Brian Ferrari MD [address] [address] 03/04/2025 3:30 PM EDT Office Visit Orthopedic Surgery [facility] [address] [phone] Brian Ferrari MD [address] [address] Health Maintenance Due Date Last Done Comments DTaP,Tdap,and Td Vaccines (1 - Tdap) 1986 Pneumococcal Vaccine: 50+ Years (2 of 2 - PCV) 2017 02/05/2008 Zoster Vaccines (1 of 2) 2017 Medicare Annual Wellness Visit 09/29/2022 Social Influencers of Health Screening 09/29/2022 COVID-19 Vaccine ( season) 2024 08/20/2022, 02/27/2022, 09/22/2021, Additional history exists Influenza Vaccine (#1) 2024 2, 07/21/2021, 07/22/2020, Additional history exists Depression Screening [...] patient's age to complete this topic Meningococcal B Vacine Aged Out No lo nger eligible based on patient's age to complete this topic RSV Immunization Patients Under 20 months Aged Out No longer eligible based on patient's age to complete this topic Varicella Vaccines Aged Out No longer eligible based on patient's age to complete this topic Medical Devices Implanted Type Area Credit Collector Device Identifier Shelf Expiration Date Model / Serial / Lot Putty Vesuvius 100 5ml Stry-K2m [id number] Implanted:Qty: 1 on 07/16/2024 by Nathan Hayward MD N/A: Spine Lumbar LAXMI SPINE 02/17/2027 [id number] / [id number] / Bone Graft Spine Infus Xsm Medt-Sofa [id number] Implanted:Qty: 1 on 07/16/2024 by Nathan Hayward MD N/A: Spine Lumbar [employer] SOFAMOR DANEK 11/20/2025 [id number] / / [id number] [place] Interbody System Implanted:Qty: 1 on 07/16/2024 by Nathan Hayward MD N/A: Spine Lumbar LAXMI - MEDICAL 10/30/2028 [id number] / / [id number] Plate [facility] 2h 18mm Stry-K2m [id number] Implanted:Qty: 1 on 07/16/2024 by Nathan Hayward MD N/A: Spine Lumbar LAXMI SPINE [id number] / / 5.0x40mm Screw Implanted:Qty: 2 on 07/16/2024 by Nathan Hayward MD N/A: Spine Lumbar LAXMI - MEDICAL [id number] / / Plate Assembly Screw Implanted:Qty: 1 on 07/16/2024 by Nathan Hayward MD N/A: Spine Lumbar LAXMI - MEDICAL [id number] / / Procedures Procedure Name Priority Date/Time Associated Diagnosis Comments XR KNEE 3 VIEWS LEFT Routine 10/06/2024 11:25 AM EST Post-operative state Status post total left knee replacement XR LUMBAR SPINE 4+ VIEWS Routine 09/15/2024 4:49 PM EST S/P lumbar fusion DEPRESSION SCREENING Routine 05/11/2024 ANNUAL BMP BLOOD TEST Routine 02/06/2024 LIPID PANEL Routine 12/09/2023 SANDEEP SCREENING DIGITAL Routine 10/29/2023 4:40 PM EST [...] when compared to prior x-rays obtained 06/03/2024. us Brian Ferrari MD IMG XR PROCEDURES Fin al Result * XR Lumbar Spine 4+ Views (09/15/2024 4:49 PM EST) Anatomical Region Laterality Modality Spine, L-spine Radiographic Addie ging 09/15/2024 4:54 PM EST Impressions 09/15/2024 5:01 PM EST Intact spinal fusion of the L3-4 and L4-5 levels. No dynamic instability. Report reviewed and signed by : Dr. Harley Le on 09/15/2024 5:01 PM. Workstation Name - [id number] -------- FINAL REPORT -------- Dictated By: Harley Le Dictated Date: 09/15/2024 16:54 ET Assigned Physician: Harley Le Reviewed and Electronically Signed By: Harley Le Signed Date: 09/15/2024 17:01 ET Workstation ID: [id number] Transcribed By: Self Edit Transcribed Date: 09/15/2024 [...] Le on 09/15/2024 5:01PM. Workstation Name - [id number] -------- FINAL REPORT -------- Dictated By: Harley Le Dictated Date: 09/15/2024 16:54 ET Assigned Physician: Harley Le Reviewed and Electronically Signed By: Harley Le Signed Date: 09/15/2024 17:01 ET Workstation ID: [id number] Transcribed By: Self Edit Transcribed Date: 09/15/2024 16:54 ET Chloe Geiger POLICE CAPTAIN SENIOR IMG XR PROCEDURES Final Resu lt * Depression Screening (05/11/2024) Pathologist [facility] Depression Screening Abstracted Result [facility] Historical Provider HEALTH MAINTENANCE Final Result * Annual BMP Blood Test (02/06/2024) [facility] Annual BMP Blood Test Abstracted Result [facility] Historical Provider HEALTH MAINTENANCE Final Result * (ABNORMAL) Lipid panel (12/09/2023) [facility] LDL/HDL Ratio 5(A) 0 - 4 Triglycerides 143 0 - 150 mg/dL Cholesterol 199 0 - 200 mg/dL HDL 41 >=40 mg/dL LDL Cholesterol 130(A) 0 - 100 mg/dL Blood Venous blood specimen / Unknown Result [facility] Historical Provider LAB BLOOD ORDERABLES Rosa l Result * SANDEEP SCREENING DIGITAL (10/29/2023 4:40 PM EST) Anatomical Region Laterality Modality Mammography 10/29/2023 3:10 PM EST Narrative 10/29/2023 4:40 PM EST [facility] Diagnostic Imaging Department [address] [place] [address] Patient: ??JOSH SUNG ?/Age/Sex: 1965 - 58 - F Unit#: ??[id number] ? Location/Status: ??SPDIMAM/PRE CLI ? Mnemonic/Ordering Site: ??DIGSC/SPMAM Ordering Physician: ??MICHAEL LAWRENCE MD [facility] Screening Digital - 10/29/23 - 1623 Report Status:Signed EXAM: [facility] Screening Digital EXAM DATE AND TIME: 10/29/2023 4:24 PM HISTORY: ??Screening. Previous left breast biopsies, most recently in 2020, pathology benign. Mother had breast carcinoma at age 40. COMPARISON: ??09/27/22, 10/05/20, 09/07/20, 05/11/19 TECHNIQUE: Bilateral digital breast tomosynthesis was performed in the CC and MLO projections. Computer aided detection with [employer] 3D 3.1 was employed. TISSUE DENSITY: a. [...] Procedure Note Ester Chacko MD - 06/08/2024 [facility] Diagnostic Imaging Department [address] [place] [address] Patient: ANA LILIAJOSH./Age/Sex: 1965 - 58 - F Unit#: [id number] Location/Status: SPDIMAM/PRE CLI Mnemonic/Ordering Site: [facility] Ordering Physician: MICHAEL LAWRENCE MD [facility] Screening Digital - 10/29/23 - 1623 Report Status:Signed EXAM: [facility] Screening Digital EXAM DATE AND TIME: 10/29/2023 4:24 PM HISTORY: Screening. Previous left breast biopsies, most recently [id number], pathology benign. Mother had breast carcinoma at age 40. COMPARISON: 09/27/22, 10/05/20, 09/07/20, 05/11/19 TECHNIQUE: Bilateral digital breast tomosynthesis was performed in the CCand MLO projections. Computer aided detection with [employer] 3D 3.1was employed. TISSUE DENSITY: a. The [...] 1640 Michael Lawrence MD IMG BI PROCEDURES Final Result * HIV Screening (08/05/2023) [facility] HIV Screening Abstracted Historical Provider HEALTH MAINTENANCE Final Result * Hepatitis C Screening (08/05/2023) [facility] Hepatitis C Screening Abstracted [facility] Provider HEALTH MAINTENANCE Final Result * Cervical Cancer Screening: HPV (07/13/2021) [facility] Cervical Cancer Screening: HPV Negative, abstracted [facility] Provider HEALTH MAINTENANCE Final Result * Colonoscopy (03/24/2018) [facility] Colonoscopy No interpretation , abstracted Comment:External Completion of test per patient (Patient reports normal results) Anatomical Region Laterality Modality Other Historical Provider HEALTH MAINTENANCE Final Result from Last 3 Months or Most Recently Relevant to Health Maintenance Insurance [address] [place] [address] MEDICARE Member Subscriber Plan / Payer (Ef fective 2022-Present) Name:Josh Sung Relation to Subscriber:Self Name:Josh Sung Payer ID:[id number] Group ID:[id number] Type:Not on file Address: [place] [address] [address] [id number] Advance Directives Documents on File Type Date Recorded 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
--- OUTSIDE RECORDS SUMMARY | 2024-12-01 14:27 | XMS_ITS | Encounter Summary ---
Author Organization [facility] Address [address] [place] [address] Care Team Providers Care Rand Maker Name Role Phone Trey Mueller MD Primary Care Provider Unavaila ble Mily Lawrence MD Primary Care Provider [phone] Ralf Gastelum MD Unavailable [phone] Gretchen Juan MD Unavailable [phone] Katherine Snow PA-C Unavailable [phone] Per Leahy PA-C Unavailable [phone] Encounter Details Date Type Department Care Team Description 02/05/2019 [facility] Medical Records [address] [place] [address] Abstract, Provider Social History Tobacco Use Types [...] on filedocumented in this encounter Care Teams Rand Maker Relationship Specialty Start Date End Date Trey Mueller MD PCP - General Internal Medicine 01/02/19 03/08/19 Mily Lawrence MD PCP - General Internal Medicine 03/09/19 Ralf Gastelum MD 300 [facility] [address] [place] [address] Specialist Cardiovascular Disease 06/08/22 Gretchen Juan MD 175 [facility] 300 [place] [address] Surgeon Neurosurgery 02/13/23 Katherine Snow PA-C 175 [facility] 300 [place] [address] Specialist Neurosurgery 02/13/23 Per Leahy PA-C 175 [facility] [address] [place] [address] Specialist Neurosurgery 02/13/23 documented as of this encounter
--- OUTSIDE RECORDS SUMMARY | 2024-12-01 14:27 | XMS_ITS | Encounter Summary ---
Author Organization [facility] Address [address] [place] [address] Care Team Providers Care Carbon Cleaner Name Role Phone Mily Lawrence MD Primary Care Provider [phone] Ralf Gastelum MD Unavailable [phone] Gretchen Juan MD Unavailable [phone] Katherine Snow PA-C Unavailable [phone] Per Leahy PA-C Unavailable [phone] Reason for Visit * Reason Comments E-prescribe Rx Request Encounter Details Date Type Department Care Team Description 04/07/2019 [facility] Internal Medicine [address], [address] [place] [address] Mily Lawrence MD [address] [place] [phone] E-prescribe Rx Request Social History Tobacco [...] N/A Patients current insurance carrier is: Payor: [employer] FFS / Plan: [employer] / Product Type: MEDICAID RISK documented in this encounter Plan of Treatment Not on file documented as of this encounter Visit Diagnoses Not on filedocumented in this encounter Care Teams Carbon Cleaner Relationship Specialty Start Date End Date Mily Lawrence MD PCP - General Internal Medicine 03/09/19 Ralf Gastelum MD [address] [place] [address], [place] [address] Specialist Cardiovascular Disease 06/08/22 Gretchen Juan MD 175 [facility] 300 [place] [address] Surgeon Neurosurgery 02/13/23 Katherine Snow PA-C [address] [address] Specialist Neurosurgery 02/13/23 Per Leahy PA-C 175 [facility] 300 [place] [address] Specialist Neurosurgery 02/13/23 documented as of this encounter
--- OUTSIDE RECORDS SUMMARY | 2024-12-01 14:27 | XMS_ITS | Encounter Summary ---
Author Organization [facility] Address [address] [place] [address] Care Team Providers Care High Risk Ob Name Role Phone Mily Lawrence MD Primary Care Provider [phone] Ralf Gastelum MD Unavailable [phone] Gretchen Juan MD Unavailable [phone] Katherine Snow PA-C Unavailable [phone] Per Leahy PA-C Unavailable [phone] Encounter Details Date Type Department Care Team Description 11/24/2019 Embedded Hardware Engineer Report Medical Records [address] [place] [address] Camilla Lopez MD Social History Tobacco Use [...] on filedocumented in this encounter Care Teams High Risk Ob Relationship Specialty Start Date End Date Mily Lawrence MD PCP - General Internal Medicine 03/09/19 Ralf Gastelum MD 300 [facility] [address] [place] [address] Specialist Cardiovascular Disease 06/08/22 Gretchen Juan MD 175 [facility] 300 [place] [address] Surgeon Neurosurgery 02/13/23 Katherine Snow PA-C 175 [facility] 300 [place] [address] Specialist Neurosurgery 02/13/23 Per Leahy PA-C 175 [facility] 300 [place] [address] Specialist Neurosurgery 02/13/23 documented as of this encounter
--- OUTSIDE RECORDS SUMMARY | 2024-12-01 14:27 | XMS_ITS | Encounter Summary ---
Author Organization [facility] Address [address] [place] [address] Care Team Providers Care Tool Maker Bench Name Role Phone Mily Lawrence MD Primary Care Provider [phone] Ralf Gastelum MD Unavailable [phone] Gretchen Juan MD Unavailable [phone] Katherine Snow PA-C Unavailable [phone] Per Leahy PA-C Unavailable [phone] Reason for Visit * Reason Comments E-prescribe Rx Request Encounter Details Date Type Department Care Team Description 06/27/2020 [facility] Internal Medicine - [address], [address] [place] [address] Mily Lawrence MD [address] [place] [phone] E-prescribe Rx Request Social History Tobacco [...] unspecified documented in this encounter Care Teams Tool Maker Bench Relationship Specialty Start Date End Date Mily Lawrence MD PCP - General Internal Medicine 03/09/19 Ralf Gastelum MD 300 [facility] 154 [place] [address] Specialist Cardiovascular Disease 06/08/22 Gretchen Juan MD 175 [facility] 300 [place] [address] Surgeon Neurosurgery 02/13/23 Katherine Snow PA-C 175 [facility] [address] [place] [address] Specialist Neurosurgery 02/13/23 Per Leahy PA-C [address] [phone] Specialist Neurosurgery 02/13/23 documented as of this encounter
--- OUTSIDE RECORDS SUMMARY | 2024-12-01 14:27 | XMS_ITS | Encounter Summary ---
Author Organization [facility] Address [address] [place] [address] Care Team Providers Care Vehicle Painter Name Role Phone Mily Lawrence MD Primary Care Provider [phone] Ralf Gastelum MD Unavailable [phone] Gretchen Juan MD Unavailable [phone] Katherine Snow PA-C Unavailable [phone] Per Leahy PA-C Unavailable [phone] Reason for Visit * Reason Comments E-prescribe Rx Request Encounter Details Date Type Department Care Team Description 04/17/[address] [facility] - [address], [address] [place] [address] Mily Lawrence MD [address] [place] [phone] E-prescribe Rx Request Social History Tobacco [...] on filedocumented in this encounter Care Teams Vehicle Painter Relationship Specialty Start Date End Date Mily Lawrence MD PCP - General Internal Medicine 03/09/19 Ralf Gastelum MD 300 [facility] [address] [place] [address] Specialist Cardiovascular Disease 06/08/22 Gretchen Juan MD 175 [facility] 300 [place] [address] Surgeon Neurosurgery 02/13/23 Katherine Snow PA-C [address] [id number] Specialist Neurosurgery 02/13/23 Per Leahy PA-C [address] [address] Specialist Neurosurgery 02/13/23 documented as of this encounter
--- OUTSIDE RECORDS SUMMARY | 2024-12-01 14:27 | XMS_ITS | Encounter Summary ---
Author Organization [facility] Address [address] [place] [address] Care Team Providers Care Bell Spinner Sousaphones Name Role Phone Mily Lawrence MD Primary Care Provider [phone] Ralf Gastelum MD Unavailable [phone] Gretchen Juan MD Unavailable [phone] Katherine Snow PA-C Unavailable [phone] Per Leahy PA-C Unavailable [phone] Reason for Visit * Reason Comments E-prescribe Rx Request Encounter Details Date Type Department Care Team Description [facility]09/[facility] - [address], [address] [place] [address] Mily Lawrence MD [address] [place] [phone] E-prescribe Rx Request Social History Tobacco [...] encounter Miscellaneous Notes * Telephone Encounter - Jose Carvalho - 11/09/2019 2:36 PM EST Patient would like script to [...] N/A Patients current insurance carrier is: Payor: [employer] FFS / Plan: [employer] ALLIANCE / Product Type: MEDICAID RISK documented in this encounter Plan of Treatment Not on file documented as of this encounter Visit Diagnoses Not on filedocumented in this encounter Care Teams Bell Spinner Sousaphones Relationship Specialty Start Date End Date Mily Lawrence MD PCP - General Internal Medicine 03/09/19 Ralf Gastelum MD [address] [place], [place] [id number] Specialist Cardiovascular Disease 06/08/22 Gretchen Juan MD 175 [facility] 300 [place] [address] Surgeon Neurosurgery 02/13/23 Katherine Snow PA-C 175 [facility] 300 [place] [address] Specialist Neurosurgery 02/13/23 Per Leahy PA-C 175 [facility] 300 [place] [address] Specialist Neurosurgery 02/13/23 documented as of this encounter
--- OUTSIDE RECORDS SUMMARY | 2024-12-01 14:27 | XMS_ITS | Encounter Summary ---
Author Organization [facility] Address [address] [place] [address] Care Team Providers Care Commercial Litigation Associate Name Role Phone Mily Lawrence MD Primary Care Provider [phone] Ralf Gastelum MD Unavailable [phone] Gretchen Juan MD Unavailable [phone] Katherine Snow PA-C Unavailable [phone] Per Leahy PA-C Unavailable [phone] Reason for Visit * Reason Comments E-prescribe Rx Request Encounter Details Date Type Department Care Team Description 10/29/2019 Refill [facility] [address] [place] [phone] Mily Lawrence MD [address] [place] [phone] E-prescribe Rx Request Social History Tobacco [...] Telephone Encounter - Annie Gorman M.A. - 10/29/2019 12:08 PM EST Refill sent to pcp Lab Results Component Value Date ALB 4.1 10/28/2019 SGOT 21 10/28/2019 SGPT 28 10/28/2019 TBILI 0.7 10/28/2019 ALKPHOS 53 10/28/2019 TP 7.4 10/28/2019 * Telephone Encounter - Kyra Gleason - 10/29/2019 8:32 AM EST Patient would like script to [...] N/A Patients current insurance carrier is: Payor: [employer] FFS / Plan: [facility] ALLIANCE / Product Type: MEDICAID RISK documented in this encounter Plan of Treatment Not on file documented as of this encounter Visit Diagnoses Not on filedocumented in this encounter Care Teams Commercial Litigation Associate Relationship Specialty Start Date End Date Mily Lawrence MD PCP - General Internal Medicine 03/09/19 Ralf Gastelum MD 300 [facility] [address] [place] [address] Specialist Cardiovascular Disease 06/08/22 Gretchen Juan MD 175 [facility] 300 [place] [address] Surgeon Neurosurgery 02/13/23 Katherine Snow PA-C 175 [facility] 300 [place] [address] Specialist Neurosurgery 02/13/23 Per Leahy PA-C 175 [facility] 300 [place] [address] Specialist Neurosurgery 02/13/23 documented as of this encounter
--- OUTSIDE RECORDS SUMMARY | 2024-12-01 14:27 | XMS_ITS | Encounter Summary ---
Author Organization [facility] Address [address] [place] [address] Care Team Providers Care Produce Specialist Name Role Phone Mily Lawrence MD Primary Care Provider [phone] Ralf Gastelum MD Unavailable [phone] Gretchen Juan MD Unavailable [phone] Katherine Snow PA-C Unavailable [phone] Per Leahy PA-C Unavailable [phone] Reason for Visit * Reason Comments E-prescribe Rx Request Encounter Details Date Type Department Care Team Description 04/09/2019 Refill Adult Medicine B - [address] [address] Mily Lawrence MD [address] [place] [phone] E-prescribe Rx Request Social History Tobacco [...] * Telephone Encounter - Nuha Kim - 04/09/2019 12:26 PM EDT Patient would like script to [...] N/A Patients current insurance carrier is: Payor: [employer] FFS / Plan: [employer] ALLIANCE / Product Type: MEDICAID RISK documented in this encounter Plan of Treatment Not on file documented as of this encounter Visit Diagnoses Not on filedocumented in this encounter Care Teams Produce Specialist Relationship Specialty Start Date End Date Mily Lawrence MD PCP - General Internal Medicine 03/09/19 Ralf Gastelum MD [address] [place], [place] [address], [place] [address] Specialist Cardiovascular Disease 06/08/22 Gretchen Juan MD 175 [facility] 300 [place] [address] Surgeon Neurosurgery 02/13/23 Katherine Snow PA-C [address] [address] Specialist Neurosurgery 02/13/23 Per Leahy PA-C 175 [facility] 300 [place] [address] Specialist Neurosurgery 02/13/23 documented as of this encounter
--- OUTSIDE RECORDS SUMMARY | 2024-12-01 14:27 | XMS_ITS | Encounter Summary ---
Author Organization [facility] Address [address] [place] [address] Care Team Providers Care Roving Frame Tender Name Role Phone Mily Lawrence MD Primary Care Provider [phone] Trey Mueller MD Primary Care Provider Unavaila ble Mily Lawrence MD Primary Care Provider [phone] Ralf Gastelum MD Unavailable [phone] Gretchen Juan MD Unavailable [phone] Katherine Snow PA-C Unavailable [phone] Per Leahy PA-C Unavailable [phone] Reason for Visit * Reason Onset Date Comments refill request 12/12/2018 Encounter Details Date Type Department Care Team Description 12/12/2018 Telephone Internal Medicine - [address], [address] [place] [address] Mily Lawrence MD [address] [place] [phone] refill request Social History Tobacco Use [...] N/A Patients current insurance carrier is: Payor: [employer] FFS / Plan: [employer] ALLIANCE / Product Type: MEDICAID RISK documented in this encounter Plan of Treatment Not on file documented as of this encounter Visit Diagnoses Not on filedocumented in this encounter Care Teams Roving Frame Tender Relationship Specialty Start Date End Date Mily Lawrence MD PCP - General Internal Medicine 03/13/17 01/01/19 Trey Mueller MD PCP - General Internal Medicine 01/02/19 03/08/19 Mily Lawrence MD PCP - General Internal Medicine 03/09/19 Ralf Gastelum MD 300 [facility] 154 [place] [address] Specialist Cardiovascular Disease 06/08/22 Gretchen Juan MD 175 [facility] 300 [place] [address] Surgeon Neurosurgery 02/13/23 Katherine Snow PA-C 175 [facility] 300 [place] [address] Specialist Neurosurgery 02/13/23 Per Leahy PA-C 175 [facility] 300 [place] [address] Specialist Neurosurgery 02/13/23 documented as of this encounter
--- OUTSIDE RECORDS SUMMARY | 2024-12-01 14:27 | XMS_ITS | Encounter Summary ---
Author Organization [facility] Address [address] [place] [address] Care Team Providers Care Reproduction Production Manager Name Role Phone Trey Mueller MD Primary Care Provider Unavaila ble Mily Lawrence MD Primary Care Provider [phone] Ralf Gastelum MD Unavailable [phone] Gretchen Juan MD Unavailable [phone] Katherine Snow PA-C Unavailable [phone] Per Leahy PA-C Unavailable [phone] Encounter Details Date Type Department Care Team Description 02/03/2019 Hospital Medical Records [address] [place] [address] Magdi Daniel MD [address] [place] [address] [place] [address] Social History Tobacco Use Types Packs/Day Years [...] on filedocumented in this encounter Care Teams Reproduction Production Manager Relationship Specialty Start Date End Date Trey Mueller MD PCP - General Internal Medicine 01/02/19 03/08/19 Mily Lawrence MD PCP - General Internal Medicine 03/09/19 Ralf Gastelum MD 300 [facility] 154 [place] [address] Specialist Cardiovascular Disease 06/08/22 Gretchen Juan MD [address] [address] Surgeon Neurosurgery 02/13/23 Katherine Snow PA-C 175 [facility] 300 [place] [address] Specialist Neurosurgery 02/13/23 Per Leahy PA-C [address] [address] Specialist Neurosurgery 02/13/23 documented as of this encounter
--- OUTSIDE RECORDS SUMMARY | 2024-12-01 14:27 | XMS_ITS | Encounter Summary ---
Author Organization [facility] Address [address] [place] [address] Care Team Providers Care Inspector Optical Instrument Name Role Phone Mily Lawrence MD Primary Care Provider [phone] Ralf Gastelum MD Unavailable [phone] Gretchen Juan MD Unavailable [phone] Katherine Snow PA-C Unavailable [phone] Per Leahy PA-C Unavailable [phone] Reason for Visit * Reason Comments E-prescribe Rx Request Encounter Details Date Type Department Care Team Description 04/29/[facility] - [address], [address] [place] [address] Mily Lawrence MD [address] [place] [phone] E-prescribe Rx Request Social History Tobacco [...] on filedocumented in this encounter Care Teams Inspector Optical Instrument Relationship Specialty Start Date End Date Mily Lawrence MD PCP - General Internal Medicine 03/09/19 Ralf Gastelum MD 300 [facility] 154 [place] [address] Specialist Cardiovascular Disease 06/08/22 Gretchen Juan MD 175 [facility] 300 [place] [address] Surgeon Neurosurgery 02/13/23 Katherine Snow PA-C [address] [address] Specialist Neurosurgery 02/13/23 Per Leahy PA-C [address] [address] Specialist Neurosurgery 02/13/23 documented as of this encounter
--- OUTSIDE RECORDS SUMMARY | 2024-12-01 14:27 | XMS_ITS | Encounter Summary ---
Author Organization [facility] Address [address] [place] [address] Care Team Providers Care Finisher Special Stocks Name Role Phone Mily Lawrence MD Primary Care Provider [phone] Ralf Gastelum MD Unavailable [phone] Gretchen Juan MD Unavailable [phone] Katherine Snow PA-C Unavailable [phone] Per Leahy PA-C Unavailable [phone] Encounter Details Date Type Department Care Team Description 03/16/2020 Telephone Adult [address] [id number] Mily Lawrence MD [address] [place] [phone] Social History Tobacco Use Types Packs/Day [...] on filedocumented in this encounter Care Teams Finisher Special Stocks Relationship Specialty Start Date End Date Mily Lawrence MD PCP - General Internal Medicine 03/09/19 Ralf Gastelum MD 300 [facility] [address] [place] [address] Specialist Cardiovascular Disease 06/08/22 Gretchen Juan MD 175 [facility] 300 [place] [address] Surgeon Neurosurgery 02/13/23 Katherine Snow PA-C 175 [facility] 300 [place] [address] Specialist Neurosurgery 02/13/23 Per Leahy PA-C 175 [facility] 300 [place] [address] Specialist Neurosurgery 02/13/23 documented as of this encounter
--- OUTSIDE RECORDS SUMMARY | 2024-12-01 14:27 | XMS_ITS | Encounter Summary ---
Author Organization [facility] Address [address] [place] [address] Care Team Providers Care Inside Barrel Lathe Operator Name Role Phone Mily Lawrence MD Primary Care Provider [phone] Ralf Gastelum MD Unavailable [phone] Gretchen Juan MD Unavailable [phone] Katherine Snow PA-C Unavailable [phone] Per Leahy PA-C Unavailable [phone] Encounter Details Date Type Department Care Team Description 10/28/2019 Release of Information Medical Records [address] [place] [id number] Abstract, Provider Social History Tobacco Use Types [...] on filedocumented in this encounter Care Teams Inside Barrel Lathe Operator Relationship Specialty Start Date End Date Mily Lawrence MD PCP - General Internal Medicine 03/09/19 Ralf Gastelum MD 300 [facility] [address] [place] [address] Specialist Cardiovascular Disease 06/08/22 Gretchen Juan MD 175 [facility] 300 [place] [address] Surgeon Neurosurgery 02/13/23 Katherine Snow PA-C 175 [facility] 300 [place] [address] Specialist Neurosurgery 02/13/23 Per Leahy PA-C 175 [facility] 300 [place] [address] Specialist Neurosurgery 02/13/23 documented as of this encounter
--- OUTSIDE RECORDS SUMMARY | 2024-12-01 14:27 | XMS_ITS | Encounter Summary ---
Author Organization [facility] Address [address] [place] [address] Care Team Providers Care Precision Crop Manager Name Role Phone Trey Mueller MD Primary Care Provider Unavaila ble Mily Lawrence MD Primary Care Provider [phone] Ralf Gastelum MD Unavailable [phone] Gretchen Juan MD Unavailable [phone] Katherine Snow PA-C Unavailable [phone] Per Leahy PA-C Unavailable [phone] Encounter Details Date Type Department Care Team Description 01/26/2019 Assembler Motor Vehicle Report Medical Records [address] [place] [address] Magdi Daniel MD [address] [place] [address] [place] [phone] Social History Tobacco Use Types Packs/Day Years [...] on filedocumented in this encounter Care Teams Precision Crop Manager Relationship Specialty Start Date End Date Trey Mueller MD PCP - General Internal Medicine 01/02/19 03/08/19 Mily Lawrence MD PCP - General Internal Medicine 03/09/19 Ralf Gastelum MD [address] [facility] 154 [place] [address] Specialist Cardiovascular Disease 06/08/22 Gretchen Juan MD 175 [facility] 300 [place] [address] Surgeon Neurosurgery 02/13/23 Katherine Snow PA-C 175 [facility] 300 [place] [address] Specialist Neurosurgery 02/13/23 Per Leahy PA-C 175 [facility] 300 [place] [address] Specialist Neurosurgery 02/13/23 documented as of this encounter
--- OUTSIDE RECORDS SUMMARY | 2024-12-01 14:27 | XMS_ITS | Encounter Summary ---
Author Organization [facility] Address [address] [place] [address] Care Team Providers Care Flatwork Presser Name Role Phone Mily Lawrence MD Primary Care Provider [phone] Ralf Gastelum MD Unavailable [phone] Gretchen Juan MD Unavailable [phone] Katherine Snow PA-C Unavailable [phone] Per Leahy PA-C Unavailable [phone] Reason for Visit * Reason Onset Date Comments medication problems 10/29/2019 Encounter Details Date Type Department Care Team Description 10/29/2019 Telephone Adult Medicine [address] [address] Mily Lawrence MD [address] [place] [phone] medication problems Social History Tobacco Use [...] on filedocumented in this encounter Care Teams Flatwork Presser Relationship Specialty Start Date End Date Mily Lawrence MD PCP - General Internal Medicine 03/09/19 Ralf Gastelum MD 300 [facility] 154 [place] [address] Specialist Cardiovascular Disease 06/08/22 Gretchen Juan MD 175 [facility] 300 [place] [address] Surgeon Neurosurgery 02/13/23 Katherine Snow PA-C [address] [id number] Specialist Neurosurgery 02/13/23 Per Leahy PA-C [address] [address] Specialist Neurosurgery 02/13/23 documented as of this encounter
--- OUTSIDE RECORDS SUMMARY | 2024-12-01 14:27 | XMS_ITS | Encounter Summary ---
Author Organization [facility] Address [address] [place] [address] Care Team Providers Care Gold Plater Name Role Phone Trey Mueller MD Primary Care Provider Unavaila Mily Mayen MD Primary Care Provider [phone] Ralf Gastelum MD Unavailable [phone] Gretchen Juan MD Unavailable [phone] Katherine Snow PA-C Unavailable [phone] Per Leahy PA-C Unavailable [phone] Reason for Visit * Reason Onset Date Comments preop exam 01/23/2019 Encounter Details Date Type Department Care Team Description 01/23/2019 Telephone Internal Medicine - [address], [address] [place] [address] Trey Mueller MD preop exam Social History Tobacco Use Types Packs/Day Years [...] * Telephone Encounter - Sophie Vick - 01/27/2019 8:32 AM EDT Appointment booked with patient. * Telephone Encounter - Cecile Sherwood - 01/26/2019 3:46 PM EDT Patient asking about rescheduling her pre-op to the [facility] if there is availabilityprior to Saturday01/30/19 Please review and contact patient at number listed * Telephone Encounter - Nuha Kim - 01/23/2019 10:35 AM EDT Patient has to cancel preop appt 01/26 @ 10am, Please reschedule before 02/03/2019 documented in this encounter Plan of Treatment Not on file documented as of this encounter Visit Diagnoses Not on filedocumented in this encounter Care Teams Gold Plater Relationship Specialty Start Date End Date Trey Mueller MD PCP - General Internal Medicine 01/02/19 03/08/19 Mily Lawrence MD PCP - General Internal Medicine 03/09/19 Ralf Gastelum MD 300 [facility] [address] [place] [address] Specialist Cardiovascular Disease 06/08/22 Gretchen Juan MD 175 [facility] [address] [place] [address] Surgeon Neurosurgery 02/13/23 Katherine Snow PA-C [address] [id number] Specialist Neurosurgery 02/13/23 Per Leahy PA-C 175 [facility] [address] [place] [id number] Specialist Neurosurgery 02/13/23 documented as of this encounter
--- OUTSIDE RECORDS SUMMARY | 2024-12-01 14:28 | XMS_ITS | Data Portability ---
Author Organization [facility] Address [address] [place] [address] Care Team Providers Care Twisthand Name Role Phone MICHAEL HOOKER Primary Care Provider [facility] ([facility]) OTHER Assessment Encounter Date Assessment Date Assessment LastModified by Organization Details LastModified Time 01/24/2023 01/24/2023 nAge Montesinos is a 57 year old woman [...] like a referral to Dr. Hayward in [place], [place] I recommend physical therapy with Anderson Murcia at the in [place], [place]. 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 [email or web address] a Not available 04/05/2023 12:18:41 12/02/2023 12/02/2023 Ange Montesinos is a 58? ? ?year old woman with complaints of neck pain [...] recommended. The risks and benefits of the procedure? ? ? were discussed in detail. She wishes to proceed. An appointment has been booked for the same. 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 Insurance approval needed. I have encouraged to? ? ?start physical therapy and discussed the importance of core strengthening. [email or web address] Not available 12/02/2023 14:56:08 01/09/2024 01/09/2024 Ange Montesinos is a 58? ? ?year old woman with complaints of neck pain [...] . The risks and benefits of the procedure? ? ? were discussed in detail. She wishes to proceed. I have encouraged to? ? ?start physical therapy and discussed the importance of core strengthening. She will follow up after her left knee replacement [email or web address] Not available 01/09/2024 11:20:26 03/27/2024 03/27/2024 Ange Montesinos is a 58? ? ?year old woman with complaints of neck pain [...] recommended. The risks and benefits of the procedure? ? ? were discussed in detail. She wishes to proceed. An appointment has been booked for the same. 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 Insurance approval needed. I have encouraged to? ? ?start physical therapy and discussed the importance of core strengthening. She si on Factorli and will call back after consulting with [...] 2022 023 HAYDEN Hayward MD, Oskar Garcia, [place], [address], 05:00:52 Procedures None recorded. Surgeries None recorded. Imaging None recorded. Medication Orders None recorded. Patient TargetsNo targets recorded. Patient Instructions Encounter Date Encounter Id Patient Instructions Last Modified By Organization Details Last Modified Time 01/24/2023 [id number] She was advised against bed rest lasting longer than four days and to continue activities as tolerated. [email or web address] Not available 01/30/2023 16:21:29 04/01/2023 [id number] physical therapy* HAYDEN Not available 10/13/2023 05:00:58 She was advised against bed rest lasting longer than four days and to continue activities as tolerated. [email or web address] Not available 04/05/2023 11:18:39 12/02/2023 [id number] She was advised against bed rest lasting longer than four days and to continue activities as tolerated. [email or web address] Not available 12/02/2023 14:52:52 03/27/2024 [id number] She was advised against bed rest lasting [...] ney spine No observ ation record ed. [facility] [address] [place], [address], 01/24/2023 13:46:21 02/09/20 23 02/06/2023 MRI, cervi ney spine , w/o contr ast No observ ation record ed. [facility] [address] [place], [address], 02/11/2023 15:20:32 Result Notes None recorded. Problems Name Problem SNOMED Code Status Onset Date Resolution Date Notes Provider Name and Address Organization Details Recorded Time Brachial radiculitis [id number] Lauryn grady MD [address] , [address], [place], [address], [place] [facility] 6 08:51:25 Displacement of lumbar intervertebral disc without myelopathy [id number] Lauryn grady MD [address] , [address], [facility] [place], [address], [place] [facility] 6 08:55:36 Lumbosacral radiculitis [id number] Lauryn grady MD [address] , [address], [place], [address], [place] [facility] 6 08:55:36 Degeneration of cervical intervertebral disc [id number] Lauryn grady MD [address] , [address], [facility] [place], [address], [place] [facility] 6 08:51:25 Cervical post-laminecto my syndrome 098576642 Active Evelio grady MD [address] , [address], [facility] [place], [address], [place] [facility] 6 08:51:25 Occipital headache 699987 Active Evelio grady MD [address] , [address], [facility] [place], [address], [place] [facility] 6 08:51:25 Problem Notes None recorded. Procedures Surgical History Date Name Laterality Status Provider Name and Address Organization Details Recorded Time 01/09/20 24 Lumbar Epidural steroid injection under fluoroscopic guidance completed Evelio Smith MD [address] , [address], [place], [address], [place] [facility] 01/09/2024 11:18:14 12/26/19 23 Lumbar Epidural steroid injection under fluoroscopic guidance completed Evelio Smith MD [address] , [address], [place], [address], [place] [facility] 12/25/2022 13:26:44 07/08/20 19 Greater Occipital Nerve Block(s) completed Evelio Smith MD [address] , [address], [place], [address], [place] [facility] 07/09/2019 14:01:34 01/07/20 19 Cervical Epidural Steroid injection under fluroscopic guidance completed Evelio Smith MD [address] , [address], [place], [address], [place] [facility] 01/07/2019 10:50:11 04/24/20 17 Lumbar Epidural steroid injection under fluoroscopic guidance completed Evelio Smith MD [address] , [address], [place], [address], [place] [facility] 05/02/2017 10:32:28 10/21/19 17 Lumbar Fusion completed Elsa Lainez [place] [facility] 12/18/2018 13:40:37 10/02/20 16 Lumbar Epidural steroid injection under fluoroscopic guidance completed Evelio Smith MD [address] , [address], [place], [address], [place] [facility] 10/02/2016 14:32:08 04/04/20 16 Lumbar Epidural steroid injection under fluoroscopic guidance completed Evelio Smith MD [address] , [address], [place], [address], [place] [facility] 04/04/2016 11:07:10 Other completed Elsa Lainez [place] [facility] 02/27/2016 14:58:46 Other completed Elsa Lainez [place] [facility] 03/01/2016 10:08:37 Other completed Elsa Lainez [place] [facility] 02/27/2016 14:58:46 Other completed Elsa Lainez [place] [facility] 02/27/2016 14:58:46 Imaging Results Imaging Date Name Status LastModified by Organiz ation Details LastModified Time 12/25/2022 XR, cervical spine completed [facility] [address] [place] [address], [address], 01/24/2023 13:46:21 02/06/2023 MRI, cervical spine, w/o contrast completed [facility] [address] [place] [address], [address], 02/11/2023 15:20:32 Procedure Notes None recorded. Medical Equipment None Reported. Allergies Allergen ID Allergen Name Allergen Category Reaction Reaction Severity Criticality Documentation Date Start Date Code Code System Note Provider Name and Address Organization Details Recorded Time 78907 Substance with sulfonami de structure and antibacte rial mechanism of action (substanc e) medicatio n hives Not available Not available 02/27/2016 40205 6180 SNOMED Elsajoey paris [place] [facility] 6 14:58:47 Medications Name Sig Start Date Stop [...] ar syringe TO BE ADMINISTE RED BY [employer] T FOR IMMUNIZAT ION 12/18 completed Not [...] 98 % 107 mm[Hg] 77 mm[Hg] Cor[facility] 3 13:18:03 Date Recorded Body height Heart rate Oxygen saturation Oxygen saturation in Arterial blood by Pulse oximetry Body mass index (BMI) Body weight Systolic blood pressure Diastolic blood pressure Provider Name and Address Organization Details Last Updated DateTime 3 162.56 cm 89 /min 98 % 98 % 35.2 kg/m2 98755.4 4 g 165 mm[Hg] 77 mm[Hg] Mary Zamarripa [place] - [facility] 3 13:23:02 Date Recorded Body height Heart rate Oxygen saturation Oxygen saturation in Arterial blood by Pulse oximetry Body mass index (BMI) Body weight Systolic blood pressure Diastolic blood pressure Provider Name and Address Organization Details Last Updated DateTime 4 162.56 cm 75 /min 96 % 96 % 34.3 kg/m2 07932.4 7 g 150 mm[Hg] 90 mm[Hg] Deana Laniernicholas robb [place] [facility] 4 [...] /min 97 % 97 % 34.3 kg/m2 22846.4 7 g 144 mm[Hg] 91 mm[Hg] Evelio grady MD [facility] [employer] [address] , [address], [place], [address], [place] [facility] 4 10:28:41 Social History Question Answer Notes LastModified by Organizat ion Details LastModified Time Tobacco Smoking Status Never Smoker Not Available [employer] 08/05/2020 03:16:12 What Is Your Level Of Alcohol Consumption? Moderate [id number] Information not available 08/05/2020 Are You Currently Employed? No Disability [email or web address] Information not available 11/23/2021 Which Illicit Or Recreational Drugs Have You Used? No [id number] Information not available 08/05/2020 Education [employer] Information not available 02/27/2016 Live Alone Or With Others? Alone Information not available 02/27/2016 Marital Status Informatio n not available 02/27/2016 What Was The Date Of Your Most Recent Tobacco Screening? 01/31/2019 [id number] Information not available 08/05/2020 Sex: Unknown Functional [...] SNOMED-CT Code Diagnosis ICD10 Code Diagnosis Note [id number] Evelio Smith MD PAIN OFFICE [address] [place] [address] 02/27/2016 14:19:46 02/28/2016 08:47:29 Displacement of lumbar intervertebral disc without myelopathy 85354036 M51.26 Lumbosacra l radiculitis 59880619 M54.17 Brachial radiculitis 278 65768 M54.12 Cervical post-laminectomy syndrome 197891262 M96.1 Degenerati on of cervical intervertebral disc 63439810 M50.30 Occipital headache 03715 7 R51 52429 Evelio Smith MD PAIN OFFICE [address] [place] [address] 03/20/2016 08:42:32 03/20/2016 10:30:41 Displacement of lumbar intervertebral disc without myelopathy 28694508 M51.26 Lumbosacra l radiculitis 54187645 M54.17 03697 Evelio Smith MD PAIN OFFICE [address] [place] [address] 04/04/2016 10:15:22 04/04/2016 11:15:33 Displacement of lumbar intervertebral disc without myelopathy 32092424 M51.26 Lumbosacra l radiculitis 60867496 M54.17 26255 Evelio Smith MD PAIN OFFICE [address] [place] [address] 05/10/2016 11:47:50 05/15/2016 08:55:57 Displacement of lumbar intervertebral disc without myelopathy 10898563 M51.26 Lumbosacra l radiculitis 98247084 M54.17 11836 Evelio Smith MD PAIN OFFICE [address] [place] [address] 09/03/2016 10:14:59 09/20/2016 08:51:29 Lumbosacral radiculitis 27560891 M54.17 Displaceme nt of lumbar intervertebral disc without myelopathy 69667618 M51.26 07804 Evelio Smith MD PAIN OFFICE [address] [place] [address] 10/02/2016 13:29:26 10/03/2016 14:29:14 Displacement of lumbar intervertebral disc without myelopathy 52054025 M51.26 Lumbosacra l radiculitis 41910190 M54.17 18863 Evelio Smith MD PAIN OFFICE [address] [place] [address] 03/27/2017 13:22:06 03/28/2017 16:32:03 Cervical radiculopathy 82691055 M54.12 Degenerati on of cervical intervertebral disc 75139787 M50.30 Muscle pain 71059072 M79 .1 Displaceme nt of lumbar intervertebral disc without myelopathy 76434496 M51.26 Lumbosacra l radiculitis 41985103 M54.17 98491 Evelio Smith MD [facility] PA[facility] [address] [address] 04/24/2017 13:30:47 05/02/2017 13:43:27 Cervical post-laminectomy syndrome 524793637 M96.1 Cervical radiculopathy 76320529 M54.12 Displaceme nt of lumbar intervertebral disc without myelopathy 19671573 M51.26 Lumbosacra l radiculitis 60103006 M54.17 21658 Evelio Smith MD [facility] PA[facility] [address] [place] [address] 05/16/2017 11:40:03 05/17/2017 11:19:26 Brachial radiculitis 91018532 M54.12 Degenerati on of cervical intervertebral disc 69402490 M50.30 Cervical post-laminectomy syndrome 122052676 M96.1 Occipital headache 32797 7 R51 38683 Evelio Smith MD PAIN OFFICE [address] [place] [address] 12/18/2018 13:31:38 12/18/2018 16:14:01 Brachial radiculitis 99536218 M54.12 Degenerati on of cervical intervertebral disc 86641884 M50.30 Cervical post-laminectomy syndrome 683110611 M96.1 Occipital headache 75115 7 R51 53735 Evelio Smith MD [facility] PA[facility] [address] [facility] [place] [address] 01/06/2019 08:42:42 01/07/2019 10:53:06 Brachial radiculitis 21424147 M54.12 Degenerati on of cervical intervertebral disc 29281544 M50.30 Cervical post-laminectomy syndrome 286890438 M96.1 Occipital headache 94211 7 R51 84013 Evelio Smith MD PAIN OFFICE [address] [facility] [place] [address] 01/28/2019 14:04:46 01/31/2019 10:24:31 Brachial radiculitis 52561707 M54.12 Degenerati on of cervical intervertebral disc 25121196 M50.30 Cervical post-laminectomy syndrome 246525255 M96.1 Occipital headache 64336 7 R51 71707 Evelio Smith MD PAIN OFFICE [address] [facility] [place] [address] 06/09/2019 14:32:10 06/26/2019 15:58:13 Occipital headache 303366 R51 Degenerati on of cervical intervertebral disc 35844680 M50.30 Cervical post-laminectomy syndrome 107162716 M96.1 Brachial radiculitis 278 96495 M54.12 95864 Evelio Smith MD [facility] PAIN OFF[facility] [address] [facility] [place] [address] 07/08/2019 15:29:45 07/09/2019 14:03:49 Occipital headache 696886 R51 Cervical post-laminectomy syndrome 087576102 M96.1 Degenerati on of cervical intervertebral disc 72030406 M50.30 Brachial radiculitis 278 99455 M54.12 86499 Evelio Smith MD [facility] PAIN OFF[facility] [address] [place] [address] 08/24/2019 13:24:13 08/25/2019 11:25:36 Occipital headache 148070 R51 Degenerati on of cervical intervertebral disc 29202918 M50.30 Cervical post-laminectomy syndrome 740785740 M96.1 Brachial radiculitis 278 11695 M54.12 02460 Evelio Smith MD [facility] PAIN OFFICE [address] [place] [address] 03/07/2020 13:03:14 03/07/2020 14:34:46 Occipital headache 764790 R51 Degenerati on of cervical intervertebral disc 54084184 M50.30 Cervical post-laminectomy syndrome 302952550 M96.1 Brachial radiculitis 278 06755 M54.12 82731 Evelio Smith MD PAIN OFFICE [address] [place] [address] 11/23/2021 13:01:22 11/23/2021 13:27:11 Displacement of lumbar intervertebral disc without myelopathy 43880417 M51.26 Lumbosacra l radiculitis 39999758 M54.17 Brachial radiculitis 278 18271 M54.12 Cervical post-laminectomy syndrome 219127214 M96.1 Degenerati on of cervical intervertebral disc 30760954 M50.30 Occipital headache 47419 7 R51.9 10650 Evelio Smith MD PAIN OFFICE [address] [place] [address] 09/12/2022 08:14:50 09/12/2022 15:42:09 Displacement of lumbar intervertebral disc without myelopathy 93135426 M51.26 Lumbosacra l radiculitis 69481042 M54.17 Brachial radiculitis 278 40067 M54.12 Cervical post-laminectomy syndrome 682548670 M96.1 Degenerati on of cervical intervertebral disc 95395435 M50.30 Occipital headache 89607 7 R51.9 80405 Evelio Smith MD [facility] PAIN OFFICE [address] [place] [address] 12/06/2022 14:08:50 12/13/2022 14:02:45 Displacement of lumbar intervertebral disc without myelopathy 00700797 M51.26 Lumbosacra l radiculitis 36667188 M54.17 Brachial radiculitis 278 99549 M54.12 Cervical post-laminectomy syndrome 743815525 M96.1 Degenerati on of cervical intervertebral disc 06197250 M50.30 Occipital headache 46251 7 R51.9 68320 Evelio Smith MD [facility] PAIN OFF[facility] [address] [place] [address] 12/25/2022 11:32:27 12/25/2022 13:59:32 Displacement of lumbar intervertebral disc without myelopathy 34377297 M51.26 Lumbosacra l radiculitis 31965179 M54.17 Brachial radiculitis 278 24518 M54.12 Cervical post-laminectomy syndrome 109127316 M96.1 Degenerati on of cervical intervertebral disc 74919918 M50.30 Occipital headache 67427 7 R51.9 14533 Evelio Smith MD PAIN OFFICE [address] [place] [address] 01/24/2023 13:09:55 01/31/2023 14:49:17 Brachial radiculitis 50430982 M54.12 Degenerati on of cervical intervertebral disc 48995790 M50.30 Cervical post-laminectomy syndrome 734962088 M96.1 Occipital headache 76703 7 R51.9 46475 Evelio Smith MD [facility] PAIN OFFICE [address] [place] [address] 04/01/2023 13:14:13 04/05/2023 12:19:21 Lumbosacral radiculitis 21180013 M54.17 Brachial radiculitis 278 83593 M54.12 Degenerati on of cervical intervertebral disc 82111318 M50.30 Cervical post-laminectomy syndrome 674344206 M96.1 Occipital headache 68444 7 R51.9 92302 Evelio Smith MD [facility] PA[facility] [address] [place] [address] 12/02/2023 14:06:57 12/02/2023 14:57:45 Lumbosacral radiculitis 37661168 M54.17 Displaceme nt of lumbar intervertebral disc without myelopathy 57928461 M51.26 Brachial radiculitis 278 70676 M54.12 Cervical post-laminectomy syndrome 164642324 M96.1 Degenerati on of cervical intervertebral disc 85588566 M50.30 Occipital headache 39279 7 R51.9 31738 Evelio Smiht MD [facility] PAIN OFFICE [address] [place] [address] 01/09/2024 10:01:40 01/09/2024 15:01:59 Displacement of lumbar intervertebral disc without myelopathy 58331097 M51.26 Lumbosacra l radiculitis 66214461 M54.17 Brachial radiculitis 278 54329 M54.12 Cervical post-laminectomy syndrome 362947858 M96.1 Degenerati on of cervical intervertebral disc 61763606 M50.30 Occipital headache 37187 7 R51.9 06883 Evelio Smith MD PAIN OFFICE [address] [place] [address] 03/27/2024 10:21:43 03/31/2024 16:07:49 Displacement of lumbar intervertebral disc without myelopathy 41570786 M51.26 Lumbosacra l radiculitis 77282836 M54.17 Brachial radiculitis 278 23940 M54.12 Cervical post-laminectomy syndrome 094161789 M96.1 Degenerati on of cervical intervertebral disc 44243643 M50.30 Occipital headache 86135 7 R51.9 Health Concerns Section Related Observation LastModified by Organization Detai ls LastModified Time None Recorded Concern Status LastModified by Organization Details LastModified Time None Recorded Advance Directives Directive None Recorded Payers Encounter Date Sequence Insurance Name Policy Number Policy Mojica Covered Member ID Mojica Member ID Guarantor Name 01/24/2023 2 [facility] - DOS PRIOR TO 2023 (MEDICARE REPLACEMENT/ADV ANTAGE - PPO) Ange Montesinos [id number] 04/01/2023 1 [facility] - DOS ON OR AFTER 2023 - ONE CARE (MEDICARE REPLACEMENT/ADV ANTAGE - HMO) Ange Montesinos [id number] 12/02/2023 1 [facility] - DOS ON OR AFTER 2023 - ONE CARE (MEDICARE REPLACEMENT/ADV ANTAGE - HMO) Ange Montesinos [id number] 01/09/2024 1 [facility] - DOS ON OR AFTER 2023 - ONE CARE (MEDICARE REPLACEMENT/ADV ANTAGE - HMO) Ange Montesinos [id number] 03/27/2024 1 [facility] - DOS ON OR AFTER 2023 - ONE CARE (MEDICARE REPLACEMENT/ADV ANTAGE - HMO) Ange Montesinos [id number] Notes Date Note Type Note Provider Name [...] bladder or bowel incontinence. 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 She has weakness in her arms and legs . Evelio Smith MD [address] , [address], [place], [address], [facility] 04/05/2023 12:20:51 12/02/2023 text/html She states she h as been having pain since 6321-9383. She is having an exacerbation of pain [...] [facility] [place] . She has done physical therapy and had an exacerbation of her pain.She has seen a neurosurgeon in [place], [place] . She wants to wait as she is planning on a knee replacement. She is also in grief as she has lost her mother last year. Evelio Smith MD [address] , [address], [place], [address], [facility] 12/04/2023 16:33:41 01/09/2024 text/html She is here for a lumbar epidural steroid injection under fluoroscopic guidance. Evelio Smith MD [address] , [address], [place], [address], [facility] 01/09/2024 15:09:18 03/27/2024 text/html She [...] [facility] [place] . She has done physical therapy and had an exacerbation of her pain.She has seen a neurosurgeon in [place] . She is S/P knee replacement on 03/03/[address] Segundo and is on eliquis. Evelio Smith MD [address] [place] [address] , [address], [place], [address], [place] [facility] 03/31/2024 16:06:56 OBGyn Episode No OBEpisode recorded.
--- OUTSIDE RECORDS SUMMARY | 2024-12-01 14:28 | XMS_ITS | Encounter Summary ---
Author Organization [facility] Address [address] [place] [address] Care Team Providers Care Hoisting Machine Operator Name Role Phone Mily Lawrence MD Primary Care Provider Ralf Gastelum MD Unavailable [phone] Gretchen Juan MD Unavailable [phone] Katherine Snow PA-C Unavailable [phone] Per Leahy PA-C Unavailable [phone] Reason for Visit * Reason Onset Date Comments Form 01/02/2024 Encounter Details Date Type Department Care Team Description 01/02/2024 Telephone [facility] [address] [address] Brian Ferrari MD [address] [address] Form Social History Tobacco Use Types Packs/Day [...] PM EDT I faxed the form to [facility] * Telephone Encounter - Sussy Mcgill [...] questions and/or when item(s) are available to supervisor picking crew: [phone]. Thanks, DH documented in this encounter Plan of Treatment Not on file documented as of this encounter Visit Diagnoses Not on filedocumented in this encounter Care Teams Hoisting Machine Operator Relationship Specialty Start Date End Date Mily Lawrence MD PCP - General Internal Medicine 03/09/19 Ralf Gastelum MD [address] [place] [address] Specialist Cardiovascular Disease 06/08/22 Gretchen Juan MD [address] [id number] Surgeon Neurosurgery 02/13/23 Katherine Snow PA-C [address] [address] Specialist Neurosurgery 02/13/23 Per Leahy PA-C 175 [facility] [address] [place] [address] Specialist Neurosurgery 02/13/23 documented as of this encounter
--- OUTSIDE RECORDS SUMMARY | 2024-12-01 14:28 | XMS_ITS | Encounter Summary ---
Author Organization [facility] Address [address] [place] [address] Care Team Providers Care Insole Buffer Name Role Phone Mily Lawrence MD Primary Care Provider [phone] Ralf Gastelum MD Unavailable [phone] Gretchen Juan MD Unavailable [phone] Kathernie Snow PA-C Unavailable [phone] Per Leahy PA-C Unavailable [phone] Encounter Details Date Type Department Care Team Description 02/06/2023 Die Assembler Report Medical Records [address] [place] [id number] Florina Perla MD Social History Tobacco Use [...] on filedocumented in this encounter Care Teams Insole Buffer Relationship Specialty Start Date End Date Mily Lawrence MD PCP - General Internal Medicine 03/09/19 Ralf Gastelum MD 300 [facility] [address] [place] [address] Specialist Cardiovascular Disease 06/08/22 Gretchen Juan MD 175 [facility] 300 [place] [address] Surgeon Neurosurgery 02/13/23 Katherine Snow PA-C 175 [facility] 300 [place] [address] Specialist Neurosurgery 02/13/23 Per Leahy PA-C 175 [facility] 300 [place] [address] Specialist Neurosurgery 02/13/23 documented as of this encounter
--- OUTSIDE RECORDS SUMMARY | 2024-12-01 14:28 | XMS_ITS | Encounter Summary ---
Author Organization [facility] Address [address] [place] [address] Care Team Providers Care Rock Climbing Team Member Name Role Phone Mily Lawrence MD Primary Care Provider Ralf Gastelum MD Unavailable [phone] Gretchen Juan MD Unavailable [phone] Katherine Snow PA-C Unavailable [phone] Per Leahy PA-C Unavailable [phone] Encounter Details Date Type Department Care Team Description 12/04/2023 Telephone [facility] Medical [facility] [address] [phone] Brian Ferrari MD [address] [id number] Social History Tobacco Use Types Packs/Day Years [...] on filedocumented in this encounter Care Teams Rock Climbing Team Member Relationship Specialty Start Date End Date Mily Lawrence MD PCP - General Internal Medicine 03/09/19 Ralf Gastelum MD 300 [facility] [address] [place] [address] Specialist Cardiovascular Disease 06/08/22 Gretchen Juan MD 175 [facility] 300 [place] [address] Surgeon Neurosurgery 02/13/23 Katherine Snow PA-C 175 [facility] 300 [place] [address] Specialist Neurosurgery 02/13/23 Per Leahy PA-C 175 [facility] 300 [place] [address] Specialist Neurosurgery 02/13/23 documented as of this encounter
--- OUTSIDE RECORDS SUMMARY | 2024-12-01 14:28 | XMS_ITS | Encounter Summary ---
Author Organization [facility] Address [address] [place] [address] Care Team Providers Care Print Buyer Name Role Phone Mily Lawrence MD Primary Care Provider Ralf Gastelum MD Unavailable [phone] Gretchen Juan MD Unavailable [phone] Katherine Snow PA-C Unavailable [phone] Per Leahy PA-C Unavailable [phone] Encounter Details Date Type Department Care Team Description 02/14/2023 SCAN [facility] Neurosurgery [place] [address] [phone] Per Leahy PA-C [address] [id number] Social History Tobacco Use Types Packs/Day Years [...] on filedocumented in this encounter Care Teams Print Buyer Relationship Specialty Start Date End Date Mily Lawrence MD PCP - General Internal Medicine 03/09/19 Ralf Gastelum MD 300 [facility] 154 [place] [address] Specialist Cardiovascular Disease 06/08/22 Gretchen Juan MD 175 [facility] 300 [place] [address] Surgeon Neurosurgery 02/13/23 Katherine Snow PA-C 175 [facility] 300 [place] [address] Specialist Neurosurgery 02/13/23 Per Leahy PA-C 175 [facility] 300 [place] [address] Specialist Neurosurgery 02/13/23 documented as of this encounter
--- OUTSIDE RECORDS SUMMARY | 2024-12-01 14:28 | XMS_ITS | Encounter Summary ---
Author Organization [facility] Address [address] [place] [address] Care Team Providers Care Lumber Puller Name Role Phone Mily Lawrence MD Primary Care Provider [phone] Ralf Gastelum MD Unavailable [phone] Gretchen Juan MD Unavailable [phone] Katherine Snow PA-C Unavailable [phone] Per Leahy PA-C Unavailable [phone] Encounter Details Date Type Department Care Team Description 03/13/2023 Pt. Non Urgent Medical Question Internal Medicine - [place] 175 [facility], [address] [place] [address] Mily Lawrence MD [address] [place] [phone] Social History Tobacco Use Types Packs/Day [...] on filedocumented in this encounter Care Teams Lumber Puller Relationship Specialty Start Date End Date Mily Lawrence MD PCP - General Internal Medicine 03/09/19 Ralf Gastelum MD [address] [facility] [address] [place] [address] Specialist Cardiovascular Disease 06/08/22 Gretchen Juan MD 175 [facility] 300 [place] [address] Surgeon Neurosurgery 02/13/23 Katherine Snow PA-C 175 [facility] 300 [place] [address] Specialist Neurosurgery 02/13/23 Per Leahy PA-C 175 [facility] 300 [place] [address] Specialist Neurosurgery 02/13/23 documented as of this encounter
--- OUTSIDE RECORDS SUMMARY | 2024-12-01 14:28 | XMS_ITS | Encounter Summary ---
Author Organization [facility] Address [address] [place] [address] Care Team Providers Care Application Engineer Name Role Phone Mily Lawrence MD Primary Care Provider [phone] Ralf Gastelum MD Unavailable [phone] Gretchen Juan MD Unavailable [phone] Katherine Snow PA-C Unavailable [phone] Per Leahy PA-C Unavailable [phone] Encounter Details Date Type Department Care Team Description 07/26/2024 Pt. Non Urgent Medical Question Internal Medicine - [place] 175 [facility], [address] [place] [address] Mily Lawrence MD [address] [place] [phone] Social History Tobacco Use Types Packs/Day [...] filedocumented in this encounter Care Teams Application Engineer Relationship Specialty Start Date End Date Mily Lawrence MD PCP - General Internal Medicine 03/09/19 Ralf Gastelum MD 300 [facility] [address] [place] [address] Specialist Cardiovascular Disease 06/08/22 Gretchen Juan MD 175 [facility] 300 [place] [address] Surgeon Neurosurgery 02/13/23 Katherine Snow PA-C 175 [facility] 300 [place] [address] Specialist Neurosurgery 02/13/23 Per Leahy PA-C 175 [facility] 300 [place] [address] Specialist Neurosurgery 02/13/23 documented as of this encounter
--- OUTSIDE RECORDS SUMMARY | 2024-12-01 14:28 | XMS_ITS | Encounter Summary ---
Author Organization [facility] Address [address] [place] [address] Care Team Providers Care Ski Topper Name Role Phone Mily Lawrence MD Primary Care Provider [phone] Ralf Gastelum MD Unavailable [phone] Gretchen Juan MD Unavailable [phone] Katherine Snow PA-C Unavailable [phone] Per Leahy PA-C Unavailable [phone] Encounter Details Date Type Department Care Team Description 05/14/2024 Pt. Non Urgent Medical Question Internal Medicine - [place] 175 [facility], [address] [place] [address] Mily Lawrence MD [address] [place] [phone] Social History Tobacco Use Types Packs/Day [...] on filedocumented in this encounter Care Teams Ski Topper Relationship Specialty Start Date End Date Mily Lawrence MD PCP - General Internal Medicine 03/09/19 Ralf Gastelum MD 300 [facility] [address] [place] [address] Specialist Cardiovascular Disease 06/08/22 Gretchen Juan MD 175 [facility] 300 [place] [address] Surgeon Neurosurgery 02/13/23 Katherine Snow PA-C 175 [facility] 300 [place] [address] Specialist Neurosurgery 02/13/23 Per Leahy PA-C 175 [facility] 300 [place] [address] Specialist Neurosurgery 02/13/23 documented as of this encounter
--- OUTSIDE RECORDS SUMMARY | 2024-12-01 14:28 | XMS_ITS | Encounter Summary ---
Author Organization [facility] Address [address] [place] [address] Care Team Providers Care Signal Processing Engineer Name Role Phone Mily Lawrence MD Primary Care Provider [phone] Trey Mueller MD Primary Care Provider Unavaila ble Mily Lawrence MD Primary Care Provider [phone] Mily Lawrence MD Primary Care Provider [phone] Ralf Gastelum MD Unavailable [phone] Gretchen Juan MD Unavailable [phone] Katherine Snow PA-C Unavailable [phone] Per Leahy PA-C Unavailable [phone] Encounter Details Date Type Department Care Team Description 10/19/2016 SCAN Medical Records [address] [place] [address] Abstract, Provider Social History Tobacco Use Types [...] Date/Time Associated Diagnosis Comments OUTSIDE EKG Routine 10/19/2016 documented in this encounter Results * OUTSIDE EKG (10/19/2016) Provider Default CARDIOLOGY documented in this encounter Visit Diagnoses Not on filedocumented in this encounter Care Teams Signal Processing Engineer Relationship Specialty Start Date End Date Mily Lawrence MD PCP - General Internal Medicine 03/13/17 01/01/19 Trey Mueller MD PCP - General Internal Medicine 01/02/19 03/08/19 Mily Lawrence MD PCP - General Internal Medicine 03/09/19 Mily Lawrence MD PCP - General 09/24/16 03/12/17 Ralf Gastelum MD 300 [facility] [address] [place] [address] Specialist Cardiovascular Disease 06/08/22 Gretchen Juan MD [address] [address] Surgeon Neurosurgery 02/13/23 Katherine Snow PA-C 175 [facility] 300 [place] [address] Specialist Neurosurgery 02/13/23 Per Leahy PA-C 175 [facility] 300 [place] [address] Specialist Neurosurgery 02/13/23 documented as of this encounter
--- OUTSIDE RECORDS SUMMARY | 2024-12-01 14:28 | XMS_ITS | Encounter Summary ---
Author Organization [facility] Address [address] [place] [address] Care Team Providers Care Business Solutions Consultant Name Role Phone Mily Lawrence MD Primary Care Provider [phone] Ralf Gastelum MD Unavailable [phone] Gretchen Juan MD Unavailable [phone] Katherine Snow PA-C Unavailable [phone] Per Leahy PA-C Unavailable [phone] Reason for Visit * Reason Onset Date Comments Mychart Rx Refill 05/12/2024 Encounter Details Date Type Department Care Team Description 05/12/2024 Refill Internal Medicine - [address], [address] [place], [place] [phone] Mily Lawrence MD [address] [place] [phone] Mychart Rx Refill Social History Tobacco Use [...] PM EDTFrom: Ange Montesinos To: [facility] Sent: 05/12/2024 2:15 PM EDT Subject: Medication Renewal Request Refills have been requested for the following medications: Other - [facility]INTMENT SKILLED NURSING 100,000 UNITS Per Gram for under breasts and belly/INTERTRIGO Preferred pharmacy: [id number] documented in this encounter Plan of Treatment Not on file documented as of this encounter Visit Diagnoses Not on filedocumented in this encounter Care Teams Business Solutions Consultant Relationship Specialty Start Date End Date Mily Lawrence MD PCP - General Internal Medicine 03/09/19 Ralf Gastelum MD 300 [facility] [address] [place] [address] Specialist Cardiovascular Disease 06/08/22 Gretchen Juan MD 175 [facility] 300 [place] [address] Surgeon Neurosurgery 02/13/23 Katherine Snow PA-C 175 [facility] 300 [place] [address] Specialist Neurosurgery 02/13/23 Per Leahy PA-C 175 [facility] 300 [place] [address] Specialist Neurosurgery 02/13/23 documented as of this encounter
--- OUTSIDE RECORDS SUMMARY | 2024-12-01 14:28 | XMS_ITS | Clinical Summary ---
Author Organization [facility] Address [address] [place] [address] Care Team Providers Care Heater Helper Name Role Phone Mily Lawrence MD Primary Care Provider Ralf Gastelum MD Unavailable [phone] Gretchen Juan MD Unavailable [phone] Katherine Snow PA-C Unavailable [phone] Per Leahy PA-C Unavailable Allergies Active Allergy Reactions Severity Noted Date Comments Sulfa Drugs Hives/Urticaria 01/26/2015 Sulfate Hives/Urticaria Medium 03/14/2017 Tape Rash/Dermatitis 01/04/2021 Paper tape Medications Medication Sig Dispensed Refills Start Date End Date Status Incontinence Supply Disposable ([facility] INCONTINENCE PADS) MiscIndications:Mi xed stress and urge urinary incontinence 1 Units by Does not apply route 3 times daily as needed for Other (for incontinence). Length of need lifetime Dx urinary incontinece 100 Each 11 02/17/2019 Active acetaminophen (TYLENOL) 500 MG tablet Take 1,000 mg by mouth 3 times daily. 0 Active acetaminophen (TYLENOL) 650 MG CR tablet Take 650 mg by mouth every 8 hours as needed. 0 Active polyethylene glycol (MiraLax) 17 GM/SCOOP powder Take 17 g by mouth daily. 527 g 4 05/10/2021 Active sumatriptan (IMITREX) 50 MG tablet TAKE 1 TABLET BY MOUTH AT LEAST 2 HOURS BETWEEN DOSES NEEDED FOR 30 DAY SUPPLY 0 01/23/2022 Active Diclofenac Sodium 1 % Gel APPLY 4 G TOPICALLY 2 TIMES DAILY. 100 g 2 02/21/2022 Active ondansetron (Zofran) 4 MG tablet Take 1 Tablet by mouth every 8 hours as needed for Nausea. 60 Tablet 6 05/01/2022 Active Galcanezumab-gnlm 120 MG/ML Solution Auto-injector Inject into the skin. 0 Active sertraline (ZOLOFT) 100 MG tablet Take 1 Tablet by mouth daily. 90 Tablet 3 11/12/2023 Active Cholecalciferol (Vitamin D3) 50 MCG (1999 UT) Cap Take 1 Capsule by mouth daily. 270 Capsule 1 11/12/2023 Active Ubrelvy 100 MG Tab 0 02/25/2024 Active ketoconazole (NIZORAL) 2 % shampoo USE ONCE DAILY A FACE WASH 0 Active omeprazole (PRILOSEC) 20 MG capsule Take 1 Capsule by mouth daily. 30 Capsule 5 03/20/2024 Active Multiple Vitamin (Multivitamin Adult) Tab Take 1 Tablet by mouth daily. 30 Tablet 5 03/20/2024 Active clotrimazole (LOTRIMIN) 1 % cream Apply to skin and toenails daily for 12 weeks 45 g 3 03/26/2024 Active oxycodone-acetamin ophen (PERCOCET) 5-325 MG per tablet Take 1 Tablet by mouth every 4 hours as needed. 0 Active oxybutynin (Ditropan XL) 10 MG 24 hr tablet Take 1 Tablet by mouth daily for 360 days. 30 Tablet 11 03/26/2024 03/21/2025 Active gabapentin (NEURONTIN) 300 MG capsuleIndications :Lumbar degenerative disc disease,Sciatica of right side Take 1 Capsule by mouth 3 times daily. 90 Capsule 2 04/02/2024 Active tramadol (ULTRAM) 50 MG tabletIndications: Status post total left knee replacement Take 1 Tablet by mouth every 6 hours as needed for Pain (MODERATE TO SEVERE PAIN). 30 Tablet 0 04/16/2024 Active lisinopril (PRINIVIL,ZESTRIL) 30 MG tablet Take 1 Tablet by mouth daily. 30 Tablet 5 05/08/2024 Active trazodone (DESYREL) 50 MG tablet TAKE 1 TABLET BY MOUTH EVERYDAY AT BEDTIME 90 Tablet 1 05/14/2024 Active metoprolol (LOPRESSOR) 50 MG tablet TAKE 1 TABLET BY MOUTH TWICE A DAY 180 Tablet 1 05/13/2024 Active nystatin (MYCOSTATIN) ointment Apply topically to affected areas twice a day for 10 days 30 g 1 05/12/2024 05/07/2025 Active OnabotulinumtoxinA (Botox) 200 units Recon Soln 0 Active cyclobenzaprine (FLEXERIL) 10 MG tablet TAKE 1 TABLET BY MOUTH TWICE A DAY 56 Tablet 1 07/02/2024 Active triamcinolone acetonide (KENALOG-40) 40 MG/ML injection Inject 1 mL into the articular space once for 1 dose. 1 mL 0 07/02/2024 Active celecoxib (CELEBREX) 200 MG capsuleIndications :Status post total left knee replacement TAKE 1 CAPSULE BY MOUTH 2 TIMES DAILY NEEDED FOR PAIN (TAKE WITH FOOD AND STAY HYDRATED). 60 Capsule 2 07/07/2024 Active amoxicillin (AMOXIL) 500 MG tabletIndications: Status post total left knee replacement Take 4 tablets, p.o., once, 1 hour prior to procedure. 4 Tablet 2 07/13/2024 Active Pyridoxine HCl (B-6) 250 MG Tab TAKE 1 TABLET BY MOUTH ONCE DAILY 28 Tablet 2 08/02/2024 Active thiamine 100 MG tablet TAKE 2 AND 1/2 TABS BY MOUTH EVERY DAY 70 Tablet 2 08/02/2024 Active oxycodone-acetamin ophen (LYNOX) 5-300 MG per tablet Take 1 Tablet by mouth every 4 hours as needed. 0 Active Pyridoxine HCl 250 MG Cap Take by mouth. 0 Active senna (SENOKOT) 8.6 MG tablet Take 1 Tablet by mouth daily. 0 Active Melatonin 3 MG Tab TAKE 1 TABLET BY MOUTH AT BEDTIME 28 Tablet 2 08/02/2024 Active atorvastatin (LIPITOR) 10 MG tablet Take 1 Tablet by mouth daily. 90 Tablet 2 08/18/2024 Active Active Problems Problem Noted Date History of back surgery 08/13/2024 Status post total left knee replacement 03/19/2024 Primary osteoarthritis of left knee 11/2022 Neck pain 02/14/2023 Last Assessment & Plan: Ms. Montesinos has a remote history of C6-7 anterior [...] basis. 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 01/09/2022 Brachial radiculitis 10/10/2021 Cervical post-laminectomy syndrome 10/10 Displacement of lumbar intervertebral di sc without myelopathy 10/10/2021 Lumbosacral radiculitis 10/10/2021 Occipital headache 10/10/2021 Degeneration of cervical intervertebral disc 10/10/2021 Primary osteoarthritis of both first car pometacarpal joints 05/16/2021 Chest pain 05/03/2021 Overview: Chest pain Diastolic hypertension 05/03/2021 Overview: Diastolic hypertension Post-thrombotic syndrome 04/05/2019 FH: breast cancer in first degree relati ve when <50 years old 04/01/2019 Overview: Mother, 30's, then 40's, maternal aunt 30's, then 40's; 04/2017 genetic testing negative 07/2023 [employer] hereditary breast/ovarian cancer screen NEGATIVE. There is a 14.6% Tyrer-Cuzick lifetime breast cancer risk. No additional screening is indicated. Status post total right knee replacement 04/01/2019 Overview: 01/2019 DVT (deep venous thrombosis) 04/01/2019 Overview: 02/2019 on Xarelto Chronic back pain 07/04/2018 Degenerative joint disease of cervical s pine 07/04/2018 Urinary incontinence 07/04/2018 Sleep apnea 01/30/2018 Overview: On CPAP started 2016 Primary osteoarthritis of both knees 09/2018 Lumbar degenerative disc disease 018 Last Assessment & Plan: Ms. Montesinos is about 12 days status post L3-4 DLIF with anterior spinal instrumentation performed [place]. [place] [facility] [place]. This the surgery, she has been a patient in rehab at [address] [place] [address]. While there, she is participating in physical therapy. She denies any significant improvement from her preoperative symptoms. She is neurologically intact. Her incision is healing nicely. There were no signs or symptoms of infection. We talked about postoperative course, timeframe, and nerve healing. She agreed to be patient. She will follow-up with Dr. Hayward for her regularly scheduled second postop visit. Hyperlipidemia 12/07/2017 Breast microcalcification, mammographic 10/21/2017 Essential hypertension 03/14/2017 GERD (gastroesophageal reflux disease) 1 11/05/2015 Depression with anxiety 01/12/2016 Insomnia 06/09/2015 Vitamin D deficiency 02/15/2015 Epigastric pain Nausea and vomiting Diarrhea Encounters Date Type Specialty Care Team Description 09/26/2024 Refill Orthopedic Brian Ferrari MD E-prescribe Rx Request from Last 3 Months Immunizations Name Administration Dates Next Due COVID-19 (Moderna) 08/20/2022, 2,09/22/2021, 021,02/17/2021 Hepatitis B > 19yrs 10/27/2019,05/26/2019,2018 Influenza (> 6 Months) 08/20/2022,07/21/2021, Influenza Vaccine-preservati ve Free-quadrivalent 4 Years 07/22/2020,07/09/2019,11/15/2017 Family History Medical History Relation Name Comments Cancer of the Breast Aunt maternal mat aun t breast ca 30s and again 40s Arthritis Father Arthritis Mother CA Breast Mother mother breast c a in her 30s and again in her 40s Diabetes Mother 04/2023 ESRD Mother Hypertension Mother CA Breast Other cousin Relation Name Status Comments Aunt maternal in her 30 and e marco 40. Father Mother Other cousin Alive Social History Tobacco Use [...] Sign Reading Time Taken Comments Blood Pressure 136/90 08/13/2024 1:39 PM EDT Pulse 95 08/13/2024 1:39 PM EDT Temperature 36.6 ??C (97.8 ??F) 08/13/2024 1:39 PM ED T Respiratory Rate 14 07/29/2024 11:54 AM EDT Oxygen Saturation 97% 08/13/2024 1:39 PM EDT Inhaled Oxygen Concentration - - Weight 95.7 kg (211 lb) 08/13/2024 1:39 PM EDT Height 162.6 cm (5' 4 ) 08/13/2024 1:39 PM EDT Body Mass Index 36.22 08/13/2024 1:39 PM EDT Plan of Treatment Health Maintenance Due Date Last Done Comments DEPRESSION SCREEN 1979 DTAP/TDAP/TD (1 - Tdap) 1986 SHINGLES VACCINE (1 of 2) 2017 Covid-19 Vaccine (6 2022-2 4 season) 2024 08/20/2022, 02/27/2022, 09/22/2021, Additional history exists INFLUENZA (#1) 2024 08/20/2022, 10/2020, 07/22/2020, Additional history exists CERVICAL CANCER SCREENING 07/13/20242020, 07/03/2018, 03/09/2015 (External Completion) BMI CHECK/ADVISE 10/21/2024 08/13/2024, , 04/16/2024, Additional history exists DEPRESSION SCREENING/FOLLOWUP 10/21/2024, 05/08/2024, 12/09/2023, Additional history exists SOCIAL NEEDS SCREENING 10/21/2024 MAMMOGRAM 10/29/2024 10/29/2023, 05/2022, 11/02/2020, Additional history exists BASELINE HEALTH EXAM 40-64 11/12/202511/12, 09/28/2022, 07/06/2022, Additional history exists COLON CANCER SCREENING 03/24/2028 8 (External Completion of test per patient (Patient reports normal results)) CHOLESTEROL SCREENING 12/09/2028 12/09/2023 , 05/01/2022, 05/12/2021, Additional history exists PNEUMOCOCCAL VACCINE FOR HIG H RISK PATIENTS (#1) 2032 Advance Directives For more information, please contact: [phone] Documents on File Type Date Recorded Patient Laboratory Animal Facility Supervisor Expl savi Health Care Proxy 02/11/2024 3:25 PM HEALT CARE PROXY Care Teams Heater Helper Relationship Specialty Start Date End Date Mily Lawrence MD PCP - General Internal Medicine 03/09/19 Ralf Gastelum MD 300 [facility] 154 [place] [address] Specialist Cardiovascular Disease 06/08/22 Gretchen Juan MD [address] [address] Surgeon Neurosurgery 02/13/23 Katherine Snow PA-C [address] [address] Specialist Neurosurgery 02/13/23 Per Leahy PA-C [address] [address] Specialist Neurosurgery 02/13/23
--- OUTSIDE RECORDS SUMMARY | 2024-12-01 14:28 | XMS_ITS | Encounter Summary ---
Author Organization [facility] Address [address] [place] [address] Care Team Providers Care Scaleman Name Role Phone Mily Lawrence MD Primary Care Provider [phone] Ralf Gastelum MD Unavailable [phone] Gretchen Juan MD Unavailable [phone] Katherine Snow PA-C Unavailable [phone] Per Leahy PA-C Unavailable [phone] Encounter Details Date Type Department Care Team Description 09/19/2023 Outsole Cementer Machine Report Medical Records [address] [place] [id number] Oliver Blank Social History Tobacco Use Types Packs/Day Years [...] suspected to have Coronavirus/COVID-19? No / Unsure 08/22/2023 2:17 PM EDT documented as of this encounter Plan of Treatment Not on file documented as of this encounter Visit Diagnoses Not on filedocumented in this encounter Care Teams Scaleman Relationship Specialty Start Date End Date Miyl Lawrence MD PCP - General Internal Medicine 03/09/19 Ralf Gastelum MD 300 [facility] [address] [place] [address] Specialist Cardiovascular Disease 06/08/22 Gretchen Juan MD 175 [facility] 300 [place] [address] Surgeon Neurosurgery 02/13/23 Katherine Snow PA-C 175 [facility] 300 [place] [address] Specialist Neurosurgery 02/13/23 Per Leahy PA-C 175 [facility] 300 [place] [address] Specialist Neurosurgery 02/13/23 documented as of this encounter
--- OUTSIDE RECORDS SUMMARY | 2024-12-01 14:28 | XMS_ITS | Encounter Summary ---
Author Organization [facility] Address [address] [place] [address] Care Team Providers Care Health Information Technician Name Role Phone Mily Lawrence MD Primary Care Provider [phone] Ralf Gastelum MD Unavailable [phone] Gretchen Juan MD Unavailable [phone] Katherine Snow PA-C Unavailable [phone] Per Leahy PA-C Unavailable [phone] Encounter Details Date Type Department Care Team Description 04/14/2024 Hospital Medical Records [address] [place] [id number] [place] [address] Social History Tobacco Use Types Packs/Day Years [...] on filedocumented in this encounter Care Teams Health Information Technician Relationship Specialty Start Date End Date Mily Lawrence MD PCP - General Internal Medicine 03/09/19 Ralf Gastelum MD 300 [facility] [address] [place] [address] Specialist Cardiovascular Disease 06/08/22 Gretchen Juan MD 175 [facility] 300 [place] [address] Surgeon Neurosurgery 02/13/23 Katherine Snow PA-C 175 [facility] 300 [place] [address] Specialist Neurosurgery 02/13/23 Per Leahy PA-C 175 [facility] 300 [place] [address] Specialist Neurosurgery 02/13/23 documented as of this encounter
--- OUTSIDE RECORDS SUMMARY | 2024-12-01 14:28 | XMS_ITS | Encounter Summary ---
Author Organization [facility] Address [address] [place] [address] Care Team Providers Care Vocational Director Name Role Phone Mily Lawrence MD Primary Care Provider Ralf Gastelum MD Unavailable [phone] Gretchen Juan MD Unavailable [phone] Katherine Snow PA-C Unavailable [phone] Per Leahy PA-C Unavailable [phone] Reason for Visit * Reason Comments E-prescribe Rx Request Encounter Details Date Type Department Care Team Description 07/02/2024 Refill [facility] [address] [address] Brian Ferrari MD [address] [place] [address] E-prescribe Rx Request Social History Tobacco Use [...] Miscellaneous Notes * Telephone Encounter - Nora Rdoerick - 07/02/2024 2:12 PM EDT I called the patient and LVM stating the above. * Telephone Encounter - Nora Roderick - 07/02/2024 11:55 AM EDT I called the patient and made her aware that any anti-inflammatories should come from her PCP. She was understanding of this. The patient requested that I relay that she is still having leg pain at night and that it throbs and aches. documented in this encounter Plan of Treatment Not on file documented as of this encounter Visit Diagnoses Diagnosis Status post total left knee replacement documented in this encounter Care Teams Vocational Director Relationship Specialty Start Date End Date Mily Lawrence MD PCP - General Internal Medicine 03/09/19 Ralf Gastelum MD 300 [facility] [address] [place] [address] Specialist Cardiovascular Disease 06/08/22 Gretchen Juan MD 175 [facility] 300 [place] [address] Surgeon Neurosurgery 02/13/23 Katherine Snow PA-C 175 [facility] 300 [place] [address] Specialist Neurosurgery 02/13/23 Per Leahy PA-C 175 [facility] [address] [place] [address] Specialist Neurosurgery 02/13/23 documented as of this encounter
--- OUTSIDE RECORDS SUMMARY | 2024-12-01 14:28 | XMS_ITS | Encounter Summary ---
Author Organization [facility] Address [address] [place] [address] Care Team Providers Care Shot Examiner Name Role Phone Mily Lawrence MD Primary Care Provider [phone] Ralf Gastelum MD Unavailable [phone] Gretchen Juan MD Unavailable [phone] Katherine Snow PA-C Unavailable [phone] Per Leahy PA-C Unavailable [phone] Encounter Details Date Type Department Care Team Description 03/26/2023 Reimbursement Coordinator Report Medical Records [address] [place] [address] Sravanthi Doss Social History Tobacco Use Types [...] on filedocumented in this encounter Care Teams Shot Examiner Relationship Specialty Start Date End Date Mily Lawrence MD PCP - General Internal Medicine 03/09/19 Ralf Gastelum MD 300 [facility] [address] [place] [address] Specialist Cardiovascular Disease 06/08/22 Gretchen Juan MD 175 [facility] 300 [place] [address] Surgeon Neurosurgery 02/13/23 Katherine Snow PA-C 175 [facility] 300 [place] [address] Specialist Neurosurgery 02/13/23 Per Leahy PA-C 175 [facility] 300 [place] [address] Specialist Neurosurgery 02/13/23 documented as of this encounter
--- OUTSIDE RECORDS SUMMARY | 2024-12-01 14:28 | XMS_ITS | Encounter Summary ---
Author Organization [facility] Address [address] [place] [address] Care Team Providers Care Brusher Operator Name Role Phone Mily Lawrence MD Primary Care Provider Ralf Gastelum MD Unavailable [phone] Gretchen Juan MD Unavailable [phone] Katherine Snow PA-C Unavailable [phone] Per Leahy PA-C Unavailable [phone] Encounter Details Date Type Department Care Team Description 08/16/2023 Orders Only OBGYN - 271 [facility] 271 [place] [address] Aparna Edwards, RAMBO 175 [place] [address] Encounter for well woman exam [...] DNA PROBE (08/01/2023) 08/01/2023 Aparna [facility] [employer] documented in this encounter Visit Diagnoses Diagnosis Encounter for well woman exam with routine gynecological exam Screen for STD (sexually transmitted disease) Screening examination for venereal disease documented in this encounter Care Teams Brusher Operator Relationship Specialty Start Date End Date Mily Lawrence MD PCP - General Internal Medicine 03/09/19 Ralf Gastelum MD 300 [facility] [address] [place] [address] Specialist Cardiovascular Disease 06/08/22 Gretchen Juan MD 175 [facility] 300 [place] [address] Surgeon Neurosurgery 02/13/23 Katherine Snow PA-C 175 [facility] 300 [place] [address] Specialist Neurosurgery 02/13/23 Per Leahy PA-C 175 [facility] [address] [place] [address] Specialist Neurosurgery 02/13/23 documented as of this encounter
--- OUTSIDE RECORDS SUMMARY | 2024-12-01 14:28 | XMS_ITS | Encounter Summary ---
Author Organization [facility] Address [address] [place] [address] Care Team Providers Care Member Service Representative Name Role Phone Mily Lawrence MD Primary Care Provider [phone] Ralf Gastelum MD Unavailable [phone] Gretchen Juan MD Unavailable [phone] Katherine Snow PA-C Unavailable [phone] Per Leahy PA-C Unavailable [phone] Reason for Visit * Reason Onset Date Comments preop exam 06/25/2024 Encounter Details Date Type Department Care Team Description 06/25/2024 Telephone Cardio PVC POC [address] [id number] Ralf Gastelum MD 300 [facility] 154 [place], [place] [id number] preop exam Social History Tobacco Use Types [...] encounter Miscellaneous Notes * Telephone Encounter - Zoe Baxter - 07/02/2024 9:01 AM EDT Marisela called about the patient's surgery on 07/07/24. She was questioning whether we knew about this surgery. She also requested the office note from 2021 and any recent testing. It is being faxed over to [phone]. * Telephone Encounter - Lucia Ahn - 06/29/2024 8:47 AM EDT I called Ange and informed her of the message from Dr. Gastelum. She verbalized understanding and will contact the surgeon's office to see if anything additional is needed. Pt advised to call back if anything else is needed. * Telephone Encounter - Reina Mar - 06/26/2024 4:42 PM EDT Patient calling back, she can be reached at [phone]. * Telephone Encounter - Suhail Cox RN - 06/26/2024 11:21 AM EDT LVM for pt to call back. * Telephone Encounter - Ralf Gastelum MD - 06/26/2024 11:15 AM EDT Patient was seen for cardiac testing. Her testing was normal. She has no active cardiac condition we are treating so there is no need for her to see us unless on PCP preop eval it is deemed necessary. * Telephone Encounter - Suhail Cox RN - 06/25/2024 1:34 PM EDT Pt has not been seen in our office since 07/26/22, was supposed to follow up as needed. Please advise. * Telephone Encounter - Sandy Boston - 06/25/2024 1:21 PM EDT Patient calling, she states she is having a Lumbar spacer insert on 07/07/24.. The surgeons office is wondering if patient should come in To be seen before this procedure to be cleared? documented in this encounter Plan of Treatment Not on file documented as of this encounter Visit Diagnoses Not on filedocumented in this encounter Care Teams Member Service Representative Relationship Specialty Start Date End Date Mily Lawrence MD PCP - General Internal Medicine 03/09/19 Ralf Gastelum MD 300 [facility] [address] [place] [address] Specialist Cardiovascular Disease 06/08/22 Gretchen Juan MD 175 [facility] 300 [place] [address] Surgeon Neurosurgery 02/13/23 Katherine Snow PA-C [address] [address] Specialist Neurosurgery 02/13/23 Per Leahy PA-C 175 [facility] 300 [place] [address] Specialist Neurosurgery 02/13/23 documented as of this encounter
--- OUTSIDE RECORDS SUMMARY | 2024-12-01 14:28 | XMS_ITS | Encounter Summary ---
Author Organization [facility] Address [address] [place] [address] Care Team Providers Care Electrical And Instrument Technician Name Role Phone Mily Lawrence MD Primary Care Provider [phone] Ralf Gastelum MD Unavailable [phone] Gretchen Juan MD Unavailable [phone] Katherine Snow PA-C Unavailable [phone] Per Leahy PA-C Unavailable [phone] Encounter Details Date Type Department Care Team Description 11/14/2023 Orders Only Medical Records [address] [place] [address] Oliver Blank Social History Tobacco Use Types [...] Date/Time Associated Diagnosis Comments OUTSIDE MRI/MRA Routine 11/01/2023 documented in this encounter Results * OUTSIDE MRI/MRA (11/01/2023) Oliver Blank RADIOLOGY documented in this encounter Visit Diagnoses Not on filedocumented in this encounter Care Teams Electrical And Instrument Technician Relationship Specialty Start Date End Date Mily Lawrence MD PCP - General Internal Medicine 03/09/19 Ralf Gastelum MD 300 [facility] [address] [place] [address] Specialist Cardiovascular Disease 06/08/22 Gretchen Juan MD 175 [facility] 300 [place] [address] Surgeon Neurosurgery 02/13/23 Katherine Snow PA-C 175 [facility] 300 [place] [address] Specialist Neurosurgery 02/13/23 Per Leahy PA-C 175 [facility] 300 [place] [address] Specialist Neurosurgery 02/13/23 documented as of this encounter
--- OUTSIDE RECORDS SUMMARY | 2024-12-01 14:28 | XMS_ITS | Encounter Summary ---
Author Organization [facility] Address [address] [place] [address] Care Team Providers Care Fishing Vessel Mate Name Role Phone Mily Lawrence MD Primary Care Provider [phone] Ralf Gastelum MD Unavailable [phone] Gretchen Juan MD Unavailable [phone] Katherine Snow PA-C Unavailable [phone] Per Leahy PA-C Unavailable [phone] Encounter Details Date Type Department Care Team Description 07/21/2024 Hospital Medical Records [address] [place], [place] [address] [place] [address] Social History Tobacco Use Types Packs/Day Years [...] filedocumented in this encounter Care Teams Fishing Vessel Mate Relationship Specialty Start Date End Date Mily Lawrence MD PCP - General Internal Medicine 03/09/19 Ralf Gastelum MD 300 [facility] 154 [place] [address] Specialist Cardiovascular Disease 06/08/22 Gretchen Juan MD [address] [address] Surgeon Neurosurgery 02/13/23 Katherine Snow PA-C [address] [address] Specialist Neurosurgery 02/13/23 Per Leahy PA-C [address] [address] Specialist Neurosurgery 02/13/23 documented as of this encounter
--- OUTSIDE RECORDS SUMMARY | 2024-12-01 14:28 | XMS_ITS | Encounter Summary ---
Author Organization [facility] Address [address] [place] [address] Care Team Providers Care Supervisor Coal Handling Name Role Phone Mily Lawrence MD Primary Care Provider [phone] Ralf Gastelum MD Unavailable [phone] Gretchen Juan MD Unavailable [phone] Katherine Snow PA-C Unavailable [phone] Per Leahy PA-C Unavailable [phone] Encounter Details Date Type Department Care Team Description 10/30/2023 Orders Only Medical Records [address] [place] [address] Mily Lawrence MD [address] [place] [address] Social History Tobacco Use Types Packs/Day [...] Date/Time Associated Diagnosis Comments OUTSIDE MAMMO Routine 10/29/2023 documented in this encounter Results * OUTSIDE MAMMO (10/29/2023) Mily Lawrence MD RADIOLOGY documented in this encounter Visit Diagnoses Not on filedocumented in this encounter Care Teams Supervisor Coal Handling Relationship Specialty Start Date End Date Mily Lawrence MD PCP - General Internal Medicine 03/09/19 Ralf Gastelum MD 300 [facility] [address] [place] [address] Specialist Cardiovascular Disease 06/08/22 Gretchen Juan MD [address] [address] Surgeon Neurosurgery 02/13/23 Katherine Snow PA-C [address] [address] Specialist Neurosurgery 02/13/23 Per Leahy PA-C [address] [address] Specialist Neurosurgery 02/13/23 documented as of this encounter
--- OUTSIDE RECORDS SUMMARY | 2024-12-01 14:28 | XMS_ITS | Encounter Summary ---
Author Organization [facility] Address [address] [place] [address] Care Team Providers Care Log Buncher Name Role Phone Mily Lawrence MD Primary Care Provider [phone] Ralf Gastelum MD Unavailable [phone] Gretchen Juan MD Unavailable [phone] Katherine Snow PA-C Unavailable [phone] Per Leahy PA-C Unavailable [phone] Encounter Details Date Type Department Care Team Description 06/15/2024 Pt. Non Urgent Medical Question Internal Medicine - [place] 175 [facility], [address] [place] [address] Mily Lawrence MD [address] [place] [phone] Social History Tobacco Use Types Packs/Day [...] on filedocumented in this encounter Care Teams Log Buncher Relationship Specialty Start Date End Date Mily Lawrence MD PCP - General Internal Medicine 03/09/19 Ralf Gastelum MD 300 [facility] [address] [place] [address] Specialist Cardiovascular Disease 06/08/22 Gretchen Juan MD 175 [facility] 300 [place] [address] Surgeon Neurosurgery 02/13/23 Katherine Snow PA-C 175 [facility] 300 [place] [address] Specialist Neurosurgery 02/13/23 Per Leahy PA-C 175 [facility] 300 [place] [address] Specialist Neurosurgery 02/13/23 documented as of this encounter
--- OUTSIDE RECORDS SUMMARY | 2024-12-01 14:28 | XMS_ITS | Encounter Summary ---
Author Organization [facility] Address [address] [place] [address] Care Team Providers Care Pump Room Operator Name Role Phone Mily Lawrence MD Primary Care Provider [phone] Ralf Gastelum MD Unavailable [phone] Gretchen Juan MD Unavailable [phone] Katherine Snow PA-C Unavailable [phone] Per Leahy PA-C Unavailable [phone] Reason for Visit * Reason Comments E-prescribe Rx Request Encounter Details Date Type Department Care Team Description 07/28/2020 [facility] - [address], [address] [place] [address] Mily Lawrence MD [address] [place] [address] E-prescribe Rx Request Social History Tobacco [...] 58 06/28/2020 * Telephone Encounter - Rosa Toth - 07/28/2020 9:10 AM EDT [place] - ..2019 NOV - 10.28.2020 Refills - 1 documented in this encounter Plan of Treatment Not on file documented as of this encounter Visit Diagnoses Not on filedocumented in this encounter Care Teams Pump Room Operator Relationship Specialty Start Date End Date iMly Lawrence MD PCP - General Internal Medicine 03/09/19 Ralf Gastelum MD [address] [place] [address] Specialist Cardiovascular Disease 06/08/22 Gretchen Juan MD [address] [address] Surgeon Neurosurgery 02/13/23 Katherine Snow PA-C [address] [address] Specialist Neurosurgery 02/13/23 Per Leahy PA-C 175 [facility] [address] [place] [address] Specialist Neurosurgery 02/13/23 documented as of this encounter
--- OUTSIDE RECORDS SUMMARY | 2024-12-01 14:28 | XMS_ITS | Encounter Summary ---
Author Organization [facility] Address [address] [place] [address] Care Team Providers Care Rn Baby Name Role Phone Mily Lawrence MD Primary Care Provider [phone] Ralf Gastelum MD Unavailable [phone] Gretchen Juan MD Unavailable [phone] Katherine Snow PA-C Unavailable [phone] Per Leahy PA-C Unavailable [phone] Encounter Details Date Type Department Care Team Description 02/15/2022 Release of Information Medical Records [address] [place] [address] Abstract, Provider Social History Tobacco Use Types [...] suspected to have Coronavirus/COVID-19? No / Unsure 02/15/2022 3:45 PM EDT documented as of this encounter Plan of Treatment Not on file documented as of this encounter Visit Diagnoses Not on filedocumented in this encounter Care Teams Rn Baby Relationship Specialty Start Date End Date Mily Lawrence MD PCP - General Internal Medicine 03/09/19 Ralf Gastelum MD 300 [facility] [address] [place] [address] Specialist Cardiovascular Disease 06/08/22 Gretchen Juan MD 175 [facility] 300 [place] [address] Surgeon Neurosurgery 02/13/23 Katherine Snow PA-C 175 [facility] 300 [place] [address] Specialist Neurosurgery 02/13/23 Per Leahy PA-C 175 [facility] 300 [place] [address] Specialist Neurosurgery 02/13/23 documented as of this encounter
--- OUTSIDE RECORDS SUMMARY | 2024-12-01 14:28 | XMS_ITS | Encounter Summary ---
Author Organization [facility] Address [address] [place] [address] Care Team Providers Care Criminal Records Technician Name Role Phone Mily Lawrence MD Primary Care Provider [phone] Ralf Gastelum MD Unavailable [phone] Gretchen Juan MD Unavailable [phone] Katherine Snow PA-C Unavailable [phone] Per Leahy PA-C Unavailable [phone] Reason for Visit * Reason Comments E-prescribe Rx Request Encounter Details Date Type Department Care Team Description 08/15/2020 [facility] [address], [address] [place] [address] Alejandro Sibley MD [address] [place] [address] E-prescribe Rx Request Social History Tobacco Use [...] Telephone Encounter - Annie Gorman M.A. - 08/16/2020 2:23 PM EDT Lab Results Component Value Date NA 139 06/28/2020 K 4.3 06/28/2020 CO2 28 06/28/2020 CL 105 06/28/2020 BUN 21 06/28/2020 CREAT 1.00 06/28/2020 GLU 98 06/28/2020 ALB 4.0 06/28/2020 SGOT 36 06/28/2020 SGPT 59 06/28/2020 TBILI 0.5 06/28/2020 ALKPHOS 58 06/28/2020 TP 8.0 06/28/2020 CA 9.8 06/28/2020 GFR 58 06/28/2020 * Telephone Encounter - Tia Rehman - 08/16/2020 1:16 PM EDT [facility]- 06.28.2020Aug- 10.28.2020 documented in this encounter Plan of Treatment Not on file documented as of this encounter Visit Diagnoses Not on filedocumented in this encounter Care Teams Criminal Records Technician Relationship Specialty Start Date End Date Mily Lawrence MD PCP - General Internal Medicine 03/09/19 Ralf Gastelum MD 300 [facility] [place] [address] [place] [address] Specialist Cardiovascular Disease 06/08/22 Gretchen Juan MD [address] [address] Surgeon Neurosurgery 02/13/23 Katherine Snow PA-C [address] [address] Specialist Neurosurgery 02/13/23 Per Leahy PA-C 175 [facility] [address] [place] [address] Specialist Neurosurgery 02/13/23 documented as of this encounter
--- OUTSIDE RECORDS SUMMARY | 2024-12-01 14:28 | XMS_ITS | Encounter Summary ---
Author Organization [facility] Address [address] [place] [address] Care Team Providers Care Brake Linings Coater Name Role Phone Mily Lawrence MD Primary Care Provider Ralf Gastelum MD Unavailable [phone] Gretchen Juan MD Unavailable [phone] Katherine Snow PA-C Unavailable [phone] Per Leahy PA-C Unavailable [phone] Encounter Details Date Type Department Care Team Description 07/10/2024 Telephone [facility] Medical [facility] [address] [address] Brian Ferrari MD [address] [id number] Social History Tobacco Use Types Packs/Day Years [...] at Date Recorded Female 12/24/2022 3:[address] [employer] [address] Job Start Date Occupation Industry Not on file Not on file Not on file documented as of this encounter Miscellaneous Notes * Telephone Encounter - Sussy Mcgill NP - 07/13/2024 7:19 AM EDT Rx for predental antibiotics sent to [facility] with 2 refills for future appointments. * Telephone Encounter - Marci Garrido - 07/10/2024 3:34 PM EDT Pt needs predental antibiotics for an upcoming appt [facility] documented in this encounter Plan of Treatment Not on file documented as of this encounter Visit Diagnoses Not on filedocumented in this encounter Care Teams Brake Linings Coater Relationship Specialty Start Date End Date Mily Lawrence MD PCP - General Internal Medicine 03/09/19 Ralf Gastelum MD 300 [facility] [address] [place] [address] Specialist Cardiovascular Disease 06/08/22 Gretchen Juan MD 175 [facility] 300 [place] [address] Surgeon Neurosurgery 02/13/23 Katherine Snow PA-C [address] [address] Specialist Neurosurgery 02/13/23 Per Leahy PA-C [address] [address] Specialist Neurosurgery 02/13/23 documented as of this encounter
--- OUTSIDE RECORDS SUMMARY | 2024-12-01 14:28 | XMS_ITS | Encounter Summary ---
Author Organization [facility] Address [address] [place] [address] Care Team Providers Care Staff Air Defense Officer Name Role Phone Mily Lawrence MD Primary Care Provider [phone] Trey Mueller MD Primary Care Provider Unavaila ble Mily Lawrence MD Primary Care Provider [phone] Ralf Gastelum MD Unavailable [phone] Gretchen Juan MD Unavailable [phone] Katherine Snow PA-C Unavailable [phone] Per Leahy PA-C Unavailable [phone] Encounter Details Date Type Department Care Team Description 10/18/2017 Case Aide Report Medical Records [address] [place] [address] Abstract, Provider Social History Tobacco Use Types [...] on filedocumented in this encounter Care Teams Staff Air Defense Officer Relationship Specialty Start Date End Date Mily Lawrence MD PCP - General Internal Medicine 03/13/17 01/01/19 Trey Mueller MD PCP - General Internal Medicine 01/02/19 03/08/19 Mily Lawrence MD PCP - General Internal Medicine 03/09/19 Ralf Gastelum MD [address] [address] Specialist Cardiovascular Disease 06/08/22 Gretchen Juan MD [address] [address] Surgeon Neurosurgery 02/13/23 Katherine Snow PA-C [address] [address] Specialist Neurosurgery 02/13/23 Per Leahy PA-C [address] [address] Specialist Neurosurgery 02/13/23 documented as of this encounter
--- OUTSIDE RECORDS SUMMARY | 2024-12-01 14:28 | XMS_ITS | Encounter Summary ---
Author Organization [facility] Address [address] [place] [address] Care Team Providers Care Feed Handler Name Role Phone Mily Lawrence MD Primary Care Provider +1 [phone] Ralf Gastelum MD Unavailable [phone] Gretchen Juan MD Unavailable [phone] Katherine Snow PA-C Unavailable [phone] Per Leahy PA-C Unavailable [phone] Encounter Details Date Type Department Care Team Description 07/16/2023 Finance Mgr Report Medical Records [address] [place] [address] Florina Perla MD Social History Tobacco Use [...] on filedocumented in this encounter Care Teams Feed Handler Relationship Specialty Start Date End Date Mily Lawrence MD PCP - General Internal Medicine 03/09/19 Ralf Gastelum MD 300 [facility] [address] [place] [address] Specialist Cardiovascular Disease 06/08/22 Gretchen Juan MD 175 [facility] 300 [place] [address] Surgeon Neurosurgery 02/13/23 Katherine Snow PA-C 175 [facility] 300 [place] [address] Specialist Neurosurgery 02/13/23 Per Leahy PA-C 175 [facility] 300 [place] [address] Specialist Neurosurgery 02/13/23 documented as of this encounter
--- OUTSIDE RECORDS SUMMARY | 2024-12-01 14:28 | XMS_ITS | Encounter Summary ---
Author Organization [facility] Address [address] [place] [address] Care Team Providers Care Active Directory Specialist Name Role Phone Mily Lawrence MD Primary Care Provider +[phone]- [phone] Ralf Gastelum MD Unavailable [phone] Gretchen Juan MD Unavailable [phone] Katherine Snow PA-C Unavailable [phone] Per Leahy PA-C Unavailable [phone] Encounter Details Date Type Department Care Team Description 2020 Telephone Internal Medicine - [address], [address] [place] [address] Mily Lawrence MD [address] [place] [phone] Social History Tobacco Use Types Packs/Day [...] encounter Miscellaneous Notes * Telephone Encounter - Ghazala Ybarra M.A. - 08/10/2020 9:55 AM EDT Per Minnie, providers need to contact patients when they are in violation of contract by phone, face to face, or mail. * Telephone Encounter - Mily Lawrence MD - 2020 5:00 PM EDT Inform patient that she is not going to receive tramadol anymore, since her marijuana is positive. Let me know what she is saying documented in this encounter Plan of Treatment Not on file documented as of this encounter Visit Diagnoses Not on filedocumented in this encounter Care Teams Active Directory Specialist Relationship Specialty Start Date End Date Mily Lawrence MD PCP - General Internal Medicine 03/09/19 Ralf Gastelum MD 300 [facility] [address] [place] [address] Specialist Cardiovascular Disease 06/08/22 Gretchen Juan MD 175 [facility] 300 [place] [address] Surgeon Neurosurgery 02/13/23 Katherine Snow PA-C 175 [facility] 300 [place] [address] Specialist Neurosurgery 02/13/23 Per Leahy PA-C [address] [place] [address] [address] [place] [address] Specialist Neurosurgery 02/13/23 documented as of this encounter
--- OUTSIDE RECORDS SUMMARY | 2024-12-01 14:28 | XMS_ITS | Encounter Summary ---
Author Organization [facility] Address [address] [place] [address] Care Team Providers Care Radiography Technician Name Role Phone Mily Lawrence MD Primary Care Provider +[phone] Ralf Gastelum MD Unavailable [phone] Gretchen Juan MD Unavailable [phone] Katherine Snow PA-C Unavailable [phone] Per Leahy PA-C Unavailable [phone] Reason for Visit * Reason Onset Date Comments Inspector Electromechanical Feedback 01/10/2022 Dr. Perla Encounter Details Date Type Department Care Team Description 01/10/2022 Telephone Internal Medicine - [address], [address] [place], [place] [address] iMly Lawrence MD [address] [place] [phone] Inspector Electromechanical Feedback (Dr. Perla) Social History Tobacco Use Types Packs/Day Years [...] suspected to have Coronavirus/COVID-19? No / Unsure 01/09/2022 1:04 PM EDT documented as of this encounter Miscellaneous Notes * Telephone Encounter - Arleth Boston - 03/14/2022 9:28 AM EDT Referral was faxed over to Dr. Perla's office, they will call the patient and schedule an appointment with the patient. * Telephone Encounter - Nasreen Orantes - 02/01/2022 2:28 PM EDT Patient really need this referral, patient still waiting on referral placed on 12/19/21. Needs to be seen by Neurology as soon as possible. * Telephone Encounter - Nasreen Orantes - 01/10/2022 4:18 PM EDT Patient looking for status on referral for Neurology placed on 12/29/21. Patient stated that Dr. Perla is also working on [address] [place] [address] and would like the referral to be sent there instead. As it will be closer to patient location. documented in this encounter Plan of Treatment Not on file documented as of this encounter Visit Diagnoses Not on filedocumented in this encounter Care Teams Radiography Technician Relationship Specialty Start Date End Date Mily Lawrence MD PCP - General Internal Medicine 03/09/19 Ralf Gastelum MD 300 [facility] [address] [place] [address] Specialist Cardiovascular Disease 06/08/22 Gretchen Juan MD 175 [facility] 300 [place] [address] Surgeon Neurosurgery 02/13/23 Katherine Snow PA-C 175 [facility] 300 [place] [address] Specialist Neurosurgery 02/13/23 Per Leahy PA-C 175 [facility] 300 [place] [address] Specialist Neurosurgery 02/13/23 documented as of this encounter
--- OUTSIDE RECORDS SUMMARY | 2024-12-01 14:28 | XMS_ITS | Encounter Summary ---
Author Organization [facility] Address [address] [place] [address] Care Team Providers Care Qa Lead Name Role Phone Mily Lawrnece MD Primary Care Provider +1 [phone] Ralf Gastelum MD Unavailable [phone] Gretchen Juan MD Unavailable [phone] Katherine Snow PA-C Unavailable [phone] Per Leahy PA-C Unavailable [phone] Encounter Details Date Type Department Care Team Description 06/24/2024 Pt. Non Urgent Medical Question Internal Medicine - [place] 175 [facility], [address] [place] [address] Mily Lawrence MD [address] [place] [phone] Social History Tobacco Use Types Packs/Day [...] on filedocumented in this encounter Care Teams Qa Lead Relationship Specialty Start Date End Date Mily Lawrence MD PCP - General Internal Medicine 03/09/19 Ralf Gastelum MD 300 [facility] [address] [place] [address] Specialist Cardiovascular Disease 06/08/22 Gretchen Juan MD 175 [facility] 300 [place] [address] Surgeon Neurosurgery 02/13/23 Katherine Snow PA-C 175 [facility] 300 [place] [address] Specialist Neurosurgery 02/13/23 Per Leahy PA-C 175 [facility] 300 [place] [address] Specialist Neurosurgery 02/13/23 documented as of this encounter
--- OUTSIDE RECORDS SUMMARY | 2024-12-01 14:28 | XMS_ITS | Encounter Summary ---
Author Organization [facility] Address [address] [place] [address] Care Team Providers Care Fisher Eel Spear Name Role Phone Mily Lawrence MD Primary Care Provider +1 [phone] Ralf Gastelum MD Unavailable [phone] Gretchen Juan MD Unavailable [phone] Katherine Snow PA-C Unavailable [phone] Per Leahy PA-C Unavailable [phone] Encounter Details Date Type Department Care Team Description 10/23/2023 Contamination Consultant Report Medical Records [address] [place] [address] Florina Perla MD Social History Tobacco Use [...] on filedocumented in this encounter Care Teams Fisher Eel Spear Relationship Specialty Start Date End Date Mily Lawrence MD PCP - General Internal Medicine 03/09/19 Ralf Gastelum MD 300 [facility] [address] [place] [address] Specialist Cardiovascular Disease 06/08/22 Gretchen Juan MD 175 [facility] 300 [place] [address] Surgeon Neurosurgery 02/13/23 Katherine Snow PA-C 175 [facility] 300 [place] [address] Specialist Neurosurgery 02/13/23 Per Leahy PA-C 175 [facility] 300 [place] [address] Specialist Neurosurgery 02/13/23 documented as of this encounter
--- OUTSIDE RECORDS SUMMARY | 2024-12-01 14:28 | XMS_ITS | Encounter Summary ---
Author Organization [facility] Address [address] [place] [address] Care Team Providers Care Qa Test Analyst Name Role Phone Mily Lawrence MD Primary Care Provider +1 [phone] Ralf Gastelum MD Unavailable [phone] Gretchen Juan MD Unavailable [phone] Katherine Snow PA-C Unavailable [phone] Per Leahy PA-C Unavailable [phone] Encounter Details Date Type Department Care Team Description 04/15/2024 Orders Only Medical Records [address] [place] [address] Matthew Morelos MD Social History Tobacco Use Types Packs/Day [...] Associated Diagnosis Comments OUTSIDE VASCULAR STUDY Routine 04/14/[address] Routine 04/14/2024 OUTSIDE PLAIN FILM Routine 04/14/2024 documented in this encounter Results * OUTSIDE PLAIN FILM (04/14/2024) Jaret Kim MD RADIOLOGY * OUTSIDE CT (04/14/2024) Matthew Morelos MD RADIOLOGY * OUTSIDE VASCULAR STUDY (04/14/2024) Matthew Morelos MD CARDIOLOGY documented in this encounter Visit Diagnoses Not on filedocumented in this encounter Care Teams Qa Test Analyst Relationship Specialty Start Date End Date Mily Lawrence MD PCP - General Internal Medicine 03/09/19 Ralf Gastelum MD 300 [facility] [address] [place] [address] Specialist Cardiovascular Disease 06/08/22 Gretchen Juan MD [address] [address] Surgeon Neurosurgery 02/13/23 Katherine Snow PA-C 175 [facility] 300 [place] [address] Specialist Neurosurgery 02/13/23 Per Leahy PA-C 175 [facility] 300 [place] [address] Specialist Neurosurgery 02/13/23 documented as of this encounter
--- OUTSIDE RECORDS SUMMARY | 2024-12-01 14:28 | XMS_ITS | Encounter Summary ---
Author Organization [facility] Address [address] [place] [address] Care Team Providers Care Automobile Body Repairer Helper Name Role Phone Mily Lawrence MD Primary Care Provider [phone] Ralf Gastelum MD Unavailable [phone] Gretchen Juan MD Unavailable [phone] Katherine Snow PA-C Unavailable [phone] Per Leahy PA-C Unavailable [phone] Reason for Visit * Reason Onset Date Comments Imaging Review 12/11/2023 R shoulder MRI Encounter Details Date Type Department Care Team Description 12/11/2023 Telephone [facility] [address] [place] [phone] Salma Elizalde APRN Imaging Review (R [...] on filedocumented in this encounter Care Teams Automobile Body Repairer Helper Relationship Specialty Start Date End Date Mily Lawrence MD PCP - General Internal Medicine 03/09/19 Ralf Gastelum MD 300 [facility] [address] [place] [address] Specialist Cardiovascular Disease 06/08/22 Gretchen Juan MD 175 [facility] 300 [place] [address] Surgeon Neurosurgery 02/13/23 Katherine Snow PA-C 175 [facility] 300 [place] [address] Specialist Neurosurgery 02/13/23 Per Leahy PA-C 175 [facility] 300 [place] [address] Specialist Neurosurgery 02/13/23 documented as of this encounter
--- OUTSIDE RECORDS SUMMARY | 2024-12-01 14:28 | XMS_ITS | Encounter Summary ---
Author Organization [facility] Address [address] [place] [address] Care Team Providers Care Foundation Maker Name Role Phone Mily Lawrence MD Primary Care Provider [phone] Ralf Gastelum MD Unavailable [phone] Gretchen Juan MD Unavailable [phone] Katherine Snow PA-C Unavailable [phone] Per Leahy PA-C Unavailable [phone] Reason for Visit * Reason Comments E-prescribe Rx Request Encounter Details Date Type Department Care Team Description 05/09/2023 Refill [facility] [address] [address] Brian Ferrari MD [address] [place] [address] E-prescribe Rx Request Social History Tobacco Use [...] leg documented in this encounter Care Teams Foundation Maker Relationship Specialty Start Date End Date Mily Lawrence MD PCP - General Internal Medicine 03/09/19 Ralf Gastelum MD [address] [address] Specialist Cardiovascular Disease 06/08/22 Gretchen Juan MD [address] [address] Surgeon Neurosurgery 02/13/23 Katherine Snow PA-C [address] [address] Specialist Neurosurgery 02/13/23 Per Leahy PA-C [address] [address] Specialist Neurosurgery 02/13/23 documented as of this encounter
--- OUTSIDE RECORDS SUMMARY | 2024-12-01 14:28 | XMS_ITS | Encounter Summary ---
Author Organization [facility] Address [address] [place] [address] Care Team Providers Care Derrick Barge Operator Name Role Phone Mily Lawrence MD Primary Care Provider [phone] Ralf Gastelum MD Unavailable [phone] Gretchen Juan MD Unavailable [phone] Katherine Snow PA-C Unavailable [phone] Per Leahy PA-C Unavailable [phone] Encounter Details Date Type Department Care Team Description 02/25/2023 Release of Information Medical Records [address] [place] [address] Abstract, Provider Social History Tobacco Use Types [...] on filedocumented in this encounter Care Teams Derrick Barge Operator Relationship Specialty Start Date End Date Mily Lawrence MD PCP - General Internal Medicine 03/09/19 Ralf Gastelum MD 300 [facility] [address] [place] [address] Specialist Cardiovascular Disease 06/08/22 Gretchen Juan MD 175 [facility] 300 [place] [address] Surgeon Neurosurgery 02/13/23 Katherine Snow PA-C 175 [facility] 300 [place] [address] Specialist Neurosurgery 02/13/23 Per Leahy PA-C 175 [facility] 300 [place] [address] Specialist Neurosurgery 02/13/23 documented as of this encounter
--- OUTSIDE RECORDS SUMMARY | 2024-12-01 14:28 | XMS_ITS | Encounter Summary ---
Author Organization [facility] Address [address] [place] [address] Care Team Providers Care Studio Producer Name Role Phone Mily Lawrence MD Primary Care Provider Ralf Gastelum MD Unavailable [phone] Gretchen Juan MD Unavailable [phone] Katherine Snow PA-C Unavailable [phone] Per Leahy PA-C Unavailable [phone] Encounter Details Date Type Department Care Team Description 01/03/2024 SCAN [facility] Medical [facility] [address] [phone] Brian Ferrari MD [address] [address] Social History Tobacco Use Types Packs/Day Years [...] on filedocumented in this encounter Care Teams Studio Producer Relationship Specialty Start Date End Date Mily Lawrence MD PCP - General Internal Medicine 03/09/19 Ralf Gastelum MD 300 [facility] [address] [place] [address] Specialist Cardiovascular Disease 06/08/22 Gretchen Juan MD 175 [facility] 300 [place] [address] Surgeon Neurosurgery 02/13/23 Katherine Snow PA-C 175 [facility] 300 [place] [address] Specialist Neurosurgery 02/13/23 Per Leahy PA-C 175 [facility] 300 [place] [address] Specialist Neurosurgery 02/13/23 documented as of this encounter
--- OUTSIDE RECORDS SUMMARY | 2024-12-01 14:28 | XMS_ITS | Encounter Summary ---
Author Organization [facility] Address [address] [place] [address] Care Team Providers Care Vocational Guidance Counselor Name Role Phone Mily Lawrence MD Primary Care Provider Ralf Gastelum MD Unavailable [phone] Gretchen Juan MD Unavailable [phone] Katherine Snow PA-C Unavailable [phone] Per Leahy PA-C Unavailable [phone] Reason for Visit * Reason Onset Date Comments Surgery (Schedule) 11/25/2023 Encounter Details Date Type Department Care Team Description 11/25/2023 Telephone [facility] [address] [address] Brian Ferrari MD [address] [address] Surgery (Schedule) Social History Tobacco Use Types [...] leg documented in this encounter Care Teams Vocational Guidance Counselor Relationship Specialty Start Date End Date Mily Lawrence MD PCP - General Internal Medicine 03/09/19 Ralf Gastelum MD 300 [facility] 154 [place] [address] Specialist Cardiovascular Disease 06/08/22 Gretchen Juan MD [address] [address] Surgeon Neurosurgery 02/13/23 Katherine Snow PA-C [address] [address] Specialist Neurosurgery 02/13/23 Per Leahy PA-C [address] [address] Specialist Neurosurgery 02/13/23 documented as of this encounter
--- OUTSIDE RECORDS SUMMARY | 2024-12-01 14:28 | XMS_ITS | Encounter Summary ---
Author Organization [facility] Address [address] [place] [address] Care Team Providers Care Home Service Advisor Name Role Phone Mily Lawrence MD Primary Care Provider Ralf Gastelum MD Unavailable [phone] Gretchen Juan MD Unavailable [phone] Katherine Snow PA-C Unavailable [phone] Per Leahy PA-C Unavailable [phone] Encounter Details Date Type Department Care Team Description 02/15/2023 Abstract [facility] Medical [facility] Neurosurgery [place] [address] [address] Gretchen Juan MD [address] [address] Social History Tobacco Use Types Packs/Day [...] on filedocumented in this encounter Care Teams Home Service Advisor Relationship Specialty Start Date End Date Mily Lawrence MD PCP - General Internal Medicine 03/09/19 Ralf Gastelum MD 300 [facility] 154 [place] [address] Specialist Cardiovascular Disease 06/08/22 Gretchen Juan MD 175 [facility] 300 [place] [address] Surgeon Neurosurgery 02/13/23 Katherine Snow PA-C 175 [facility] 300 [place] [address] Specialist Neurosurgery 02/13/23 Per Leahy PA-C 175 [facility] 300 [place] [address] Specialist Neurosurgery 02/13/23 documented as of this encounter
--- OUTSIDE RECORDS SUMMARY | 2024-12-01 14:29 | XMS_ITS | Encounter Summary ---
Author Organization [facility] Address [address] [place] [address] Care Team Providers Care Slitter Scorer Name Role Phone Mily Lawrence MD Primary Care Provider [phone] Ralf Gastelum MD Unavailable [phone] Gretchen Juan MD Unavailable [phone] Katherine Snow PA-C Unavailable [phone] Per Leahy PA-C Unavailable [phone] Encounter Details Date Type Department Care Team Description 01/28/2024 Pt. Non Urgent Medical Question [facility] Medical [facility] 175 [facility] [address] [place] [phone] Salma Elizalde APRN Social History Tobacco Use [...] on filedocumented in this encounter Care Teams Slitter Scorer Relationship Specialty Start Date End Date Mily Lawrence MD PCP - General Internal Medicine 03/09/19 Ralf Gastelum MD 300 [facility] [address] [place] [address] Specialist Cardiovascular Disease 06/08/22 Gretchen Juan MD 175 [facility] 300 [place] [address] Surgeon Neurosurgery 02/13/23 Katherine Snow PA-C 175 [facility] 300 [place] [address] Specialist Neurosurgery 02/13/23 Per Leahy PA-C 175 [facility] 300 [place] [address] Specialist Neurosurgery 02/13/23 documented as of this encounter
--- OUTSIDE RECORDS SUMMARY | 2024-12-01 14:29 | XMS_ITS | Encounter Summary ---
Author Organization [facility] Address [address] [place] [address] Care Team Providers Care Environmental Protection Officer Name Role Phone Mily Lawrence MD Primary Care Provider [phone] Ralf Gastelum MD Unavailable [phone] Gretchen Juan MD Unavailable [phone] Katherine Snow PA-C Unavailable [phone] Per Leahy PA-C Unavailable [phone] Reason for Visit * Reason Comments E-prescribe Rx Request Encounter Details Date Type Department Care Team Description 03/24/2021 Refill Internal Medicine - [address], [address] [place] [address] Mily Lawrence MD [address] [place] [phone] E-prescribe Rx Request Social History Tobacco [...] on filedocumented in this encounter Care Teams Environmental Protection Officer Relationship Specialty Start Date End Date Mily Lawrence MD PCP - General Internal Medicine 03/09/19 Ralf Gastelum MD [address] [place] [address] Specialist Cardiovascular Disease 06/08/22 Gretchen Juan MD 175 [facility] 300 [place] [address] Surgeon Neurosurgery 02/13/23 Katherine Snow PA-C [address] [address] Specialist Neurosurgery 02/13/23 Per Leahy PA-C 175 [facility] 300 [place] [address] Specialist Neurosurgery 02/13/23 documented as of this encounter
--- OUTSIDE RECORDS SUMMARY | 2024-12-01 14:29 | XMS_ITS | Encounter Summary ---
Author Organization [facility] Address [address] [place] [address] Care Team Providers Care Labor Relations Teacher Name Role Phone Mily Lawrence MD Primary Care Provider +[phone] Ralf Gastelum MD Unavailable [phone] Gretchen Juan MD Unavailable [phone] Katherine Snow PA-C Unavailable [phone] Per Leahy PA-C Unavailable [phone] Reason for Visit * Reason Comments E-prescribe Rx Request Encounter Details Date Type Department Care Team Description 01/31/2021 Refill Internal Medicine [address], [address] [place] [address] Mily Lawrence MD [address] [place] [phone] E-prescribe Rx Request Social History Tobacco [...] have Coronavirus / COVID-19? No / Unsure 01/04/2021 1:47 PM EDT documented as of this encounter Miscellaneous Notes * Telephone Encounter - Natalia Pascual - 02/02/2021 3:57 PM EDT [place] 01/04/2021 NOV 05/10/2021 90 day supply. documented in this encounter Plan of Treatment Not on file documented as of this encounter Visit Diagnoses Not on filedocumented in this encounter Care Teams Labor Relations Teacher Relationship Specialty Start Date End Date Mily Lawrence MD PCP - General Internal Medicine 03/09/19 Ralf Gastelum MD 300 [facility] 154 [place] [address] Specialist Cardiovascular Disease 06/08/22 Gretchen Juan MD 175 [facility] 300 [place] [address] Surgeon Neurosurgery 02/13/23 Katherine Snow PA-C 175 [facility] 300 [place] [address] Specialist Neurosurgery 02/13/23 Per Leahy PA-C 175 [facility] 300 [place] [address] Specialist Neurosurgery 02/13/23 documented as of this encounter
--- OUTSIDE RECORDS SUMMARY | 2024-12-01 14:29 | XMS_ITS | Encounter Summary ---
Author Organization [facility] Address [address] [place] [address] Care Team Providers Care Radiophone Operator Name Role Phone Mily Lawrence MD Primary Care Provider +1 [phone] Ralf Gastelum MD Unavailable [phone] Gretchen Juan MD Unavailable [phone] Katherine Snow PA-C Unavailable [phone] Per Leahy PA-C Unavailable [phone] Reason for Visit * Reason Comments E-prescribe Rx Request Encounter Details Date Type Department Care Team Description 03/12/2021 Refill Internal Medicine - [address], [address] [place] [address] Mily Lawrence MD [address] [place] [phone] E-prescribe Rx Request Social History Tobacco [...] * Telephone Encounter - Walt Ruano - 03/13/2021 11:31 AM EDT LOGAN 01/04/2021 05/10/2021 Last filled 12/30/20 ACCOUNTS SUPERVISOR printed and placed on your desk * Telephone Encounter - Natalia Pascual - 03/13/2021 11:03 AM EDT LOGAN 01/04/2021 05/10/2021 90 day supply. documented in this encounter Plan of Treatment Not on file documented as of this encounter Visit Diagnoses Diagnosis Need for prophylactic vaccination and inoculation against viral hepatitis Mixed hyperlipidemia Essential hypertension, benign Urinary tract infection without hematuria, site unspecified documented in this encounter Care Teams Radiophone Operator Relationship Specialty Start Date End Date Mily Lawrence MD PCP - General Internal Medicine 03/09/19 Ralf Gastelum MD 300 [facility] [address] [place] [address] Specialist Cardiovascular Disease 06/08/22 Gretchen Juan MD 175 [facility] 300 [place] [address] Surgeon Neurosurgery 02/13/23 Katherine Snow PA-C [address] [address] Specialist Neurosurgery 02/13/23 Per Leahy PA-C [address] [address] Specialist Neurosurgery 02/13/23 documented as of this encounter
--- OUTSIDE RECORDS SUMMARY | 2024-12-01 14:29 | XMS_ITS | Encounter Summary ---
Author Organization [facility] Address [address] [place] [address] Care Team Providers Care Lab Pack Chemist Name Role Phone Mily Lawrence MD Primary Care Provider [phone] Ralf Gastelum MD Unavailable [phone] Gretchen Juan MD Unavailable [phone] Katherine Snow PA-C Unavailable [phone] Per Leahy PA-C Unavailable [phone] Encounter Details Date Type Department Care Team Description 06/07/2022 SCAN Cardio [facility] [address] [place] [address] Abstract, Provider Social History Tobacco Use Types [...] on filedocumented in this encounter Care Teams Lab Pack Chemist Relationship Specialty Start Date End Date Mily Lawrence MD PCP - General Internal Medicine 03/09/19 Ralf Gastelum MD 300 [facility] [address] [place] [address] Specialist Cardiovascular Disease 06/08/22 Gretchen Juan MD 175 [facility] 300 [place] [address] Surgeon Neurosurgery 02/13/23 Katherine Snow PA-C 175 [facility] 300 [place] [address] Specialist Neurosurgery 02/13/23 Per Leahy PA-C 175 [facility] 300 [place] [address] Specialist Neurosurgery 02/13/23 documented as of this encounter
--- OUTSIDE RECORDS SUMMARY | 2024-12-01 14:29 | XMS_ITS | Encounter Summary ---
Author Organization [facility] Address [address] [place] [address] Care Team Providers Care Attending Psychiatrist Name Role Phone Mily Lawrence MD Primary Care Provider +[phone] Ralf Gastelum MD Unavailable [phone] Gretchen Juan MD Unavailable [phone] Katherine Snow PA-C Unavailable [phone] Per Leahy PA-C Unavailable [phone] Reason for Visit * Reason Comments E-prescribe Rx Request Encounter Details Date Type Department Care Team Description 10/19/2020 [facility] Internal Medicine - [address], [address] [place] [address] Mily Lawrence MD [address] [place] [phone] E-prescribe Rx Request Social History Tobacco [...] unspecified documented in this encounter Care Teams Attending Psychiatrist Relationship Specialty Start Date End Date Mily Lawrence MD PCP - General Internal Medicine 03/09/19 Ralf Gastelum MD 300 [facility] 154 [place] [address] Specialist Cardiovascular Disease 06/08/22 Gretchen Juan MD [address] [address] Surgeon Neurosurgery 02/13/23 Katherine Snow PA-C 175 [facility] 300 [place] [address] Specialist Neurosurgery 02/13/23 Per Leahy PA-C [address] [address] Specialist Neurosurgery 02/13/23 documented as of this encounter
--- OUTSIDE RECORDS SUMMARY | 2024-12-01 14:29 | XMS_ITS | Continuity of Care Document ---
Author Organization [facility] Address [address] [place] [address] Phone Care Team Providers Care Housekeeper Child Care Name Role Phone Provider, [employer] Unavailable Unavailable Advance Directives Directive Yes / No Effective Date File Name No Information Encounters Encounter Description Practice Location Reason(s) For Visit Diagnoses Date Provider Providers Copied on Encounter [facility], [address] [facility], [place], [place], [id number], [place] tel:[phone] No Information Provider [employer]. . Family History [...]
--- OUTSIDE RECORDS SUMMARY | 2024-12-01 14:29 | XMS_ITS | Encounter Summary ---
Author Organization [facility] Address [address] [place] [address] Care Team Providers Care Corporate Development Analyst Name Role Phone Mily Lawrence MD Primary Care Provider +1 [phone] Ralf Gastelum MD Unavailable [phone] Gretchen Juan MD Unavailable [phone] Katherine Snow PA-C Unavailable [phone] Per Leahy PA-C Unavailable [phone] Encounter Details Date Type Department Care Team Description 03/20/2024 Orders Only Medical Records [address] [place] [address] Florina Perla MD Social History Tobacco Use [...] Date/Time Associated Diagnosis Comments OUTSIDE MRI/MRA Routine 02/26/2024 documented in this encounter Results * OUTSIDE MRI/MRA (02/26/2024) Florina Perla MD RADIOLOGY documented in this encounter Visit Diagnoses Not on filedocumented in this encounter Care Teams Corporate Development Analyst Relationship Specialty Start Date End Date Mily Lawrence MD PCP - General Internal Medicine 03/09/19 Ralf Gastelum MD 300 [facility] 154 [place] [address] Specialist Cardiovascular Disease 06/08/22 Gretchen Juan MD [address] [address] Surgeon Neurosurgery 02/13/23 Katherine Snow PA-C [address] [address] Specialist Neurosurgery 02/13/23 Per Leahy PA-C [address] [address] Specialist Neurosurgery 02/13/23 documented as of this encounter
--- OUTSIDE RECORDS SUMMARY | 2024-12-01 14:29 | XMS_ITS | Encounter Summary ---
Author Organization [facility] Address [address] [place] [address] Care Team Providers Care Grails Web Application Developer Name Role Phone Mily Lawrence MD Primary Care Provider [phone] [phone] Ralf Gastelum MD Unavailable [phone] Gretchen Juan MD Unavailable [phone] Katherine Snow PA-C Unavailable [phone] Per Leahy PA-C Unavailable [phone] Encounter Details Date Type Department Care Team Description 08/21/2022 [facility] Internal Medicine [address], [address] [place] [address] Mily Lawrence MD [address] [place] [address] Social History Tobacco Use Types Packs/Day [...] on filedocumented in this encounter Care Teams Grails Web Application Developer Relationship Specialty Start Date End Date Mily Lawrence MD PCP - General Internal Medicine 03/09/19 Ralf Gastelum MD 300 [facility] 154 [place] [address] Specialist Cardiovascular Disease 06/08/22 Gretchen Juan MD [address] [address] Surgeon Neurosurgery 02/13/23 Katherine Snow PA-C [address] [address] Specialist Neurosurgery 02/13/23 Per Leahy PA-C [address] [address] Specialist Neurosurgery 02/13/23 documented as of this encounter
--- OUTSIDE RECORDS SUMMARY | 2024-12-01 14:29 | XMS_ITS | Encounter Summary ---
Author Organization [facility] Address [address] [place] [address] Care Team Providers Care Bobbin Cleaner Name Role Phone Mily Lawrence MD Primary Care Provider [phone] Ralf Gastelum MD Unavailable [phone] Gretchen Juan MD Unavailable [phone] Katherine Snow PA-C Unavailable [phone] Per Leahy PA-C Unavailable [phone] Encounter Details Date Type Department Care Team Description 03/03/2024 Hospital Medical Records [address] [place] [address] Brian Ferrari MD [address] [place] [address] Social History Tobacco Use Types Packs/Day Years [...] on filedocumented in this encounter Care Teams Bobbin Cleaner Relationship Specialty Start Date End Date Mily Lawrence MD PCP - General Internal Medicine 03/09/19 Ralf Gastelum MD 300 [facility] [address] [place] [address] Specialist Cardiovascular Disease 06/08/22 Gretchen Juan MD 175 [facility] 300 [place] [address] Surgeon Neurosurgery 02/13/23 Katherine Snow PA-C 175 [facility] 300 [place] [address] Specialist Neurosurgery 02/13/23 Per Leahy PA-C 175 [facility] 300 [place] [address] Specialist Neurosurgery 02/13/23 documented as of this encounter
--- OUTSIDE RECORDS SUMMARY | 2024-12-01 14:29 | XMS_ITS | Encounter Summary ---
Author Organization [facility] Address [address] [place] [address] Care Team Providers Care Advertising Layout Worker Name Role Phone Mily Lawrence MD Primary Care Provider [phone] [phone] Ralf Gastelum MD Unavailable [phone] Gretchen Juan MD Unavailable [phone] Katherine Snow PA-C Unavailable [phone] Per Leahy PA-C Unavailable [phone] Reason for Visit * Reason Comments E-prescribe Rx Request Encounter Details Date Type Department Care Team Description 12/12/2020 Refill Internal Medicine [address], [address] [place] [address] Mily Lawrence MD [address] [place] [phone] E-prescribe Rx Request Social History Tobacco [...] N/A Patients current insurance carrier is: Payor: [employer] / Plan: [employer] / Product Type: MEDICAID RISK documented in this encounter Plan of Treatment Not on file documented as of this encounter Visit Diagnoses Diagnosis Need for prophylactic vaccination and inoculation against viral hepatitis Mixed hyperlipidemia Essential hypertension, benign Urinary tract infection without hematuria, site unspecified documented in this encounter Care Teams Advertising Layout Worker Relationship Specialty Start Date End Date Mily Lawrence MD PCP - General Internal Medicine 03/09/19 Ralf Gastelum MD 300 [facility] [address] [place] [address] Specialist Cardiovascular Disease 06/08/22 Gretchen Juan MD 175 [facility] 300 [place] [address] Surgeon Neurosurgery 02/13/23 Katherine Snow PA-C 175 [facility] 300 [place] [address] Specialist Neurosurgery 02/13/23 Per Leahy PA-C 175 [facility] 300 [place] [address] Specialist Neurosurgery 02/13/23 documented as of this encounter
--- OUTSIDE RECORDS SUMMARY | 2024-12-01 14:29 | XMS_ITS | Encounter Summary ---
Author Organization [facility] Address [address] [place] [address] Care Team Providers Care Physician Office Rep Name Role Phone Mily Lawrence MD Primary Care Provider [phone] Ralf Gastelum MD Unavailable [phone] Gretchen Juan MD Unavailable [phone] Katherine Snow PA-C Unavailable [phone] Per Leahy PA-C Unavailable [phone] Encounter Details Date Type Department Care Team Description 09/23/2020 Orders Only Medical Records [address] [place] [address] Mily Lawrence MD [address] [place] [phone] Breast mass, left (Primary Dx) Social History Tobacco Use Types [...] Date/Time Associated Diagnosis Comments OUTSIDE MAMMO Routine 09/22/2020 OUTSIDE ULTRASOUND Routine 09/22/2020 documented in this encounter Results * SONO GUIDE NEEDLE BIOPSY (10/05/2020) Mily Lawrence MD ULTRASOUND Performing Organization Address City/State/[facility] Co de Phone Number [address] * OUTSIDE ULTRASOUND (09/22/2020) Mily Lawrence MD RADIOLOGY * OUTSIDE MAMMO (09/22/2020) Mily Lawrence MD RADIOLOGY documented in this encounter Visit Diagnoses Diagnosis Breast mass, left- Primary Lump or mass in breast documented in this encounter Care Teams Physician Office Rep Relationship Specialty Start Date End Date Mily Lawrence MD PCP - General Internal Medicine 03/09/19 Ralf Gastelum MD 300 [facility] [address] [place] [address] Specialist Cardiovascular Disease 06/08/22 Gretchen Juan MD 175 [facility] 300 [place] [address] Surgeon Neurosurgery 02/13/23 Katherine Snow PA-C 175 [facility] 300 [place] [address] Specialist Neurosurgery 02/13/23 Per Leahy PA-C 175 [facility] 300 [place] [address] Specialist Neurosurgery 02/13/23 documented as of this encounter
--- OUTSIDE RECORDS SUMMARY | 2024-12-01 14:29 | XMS_ITS | Encounter Summary ---
Author Organization [facility] Address [address] [place] [address] Care Team Providers Care Underwriting Technician Name Role Phone Mily Lawrence MD Primary Care Provider [phone] Ralf Gastelum MD Unavailable [phone] Gretchen Juan MD Unavailable [phone] Katherine Snow PA-C Unavailable [phone] Per Leahy PA-C Unavailable [phone] Reason for Visit * Reason Comments E-prescribe Rx Request Encounter Details Date Type Department Care Team Description 04/28/2021 Refill Internal Medicine - [address], [address] [place] [address] Mily Lawrence MD [address] [place] [phone] E-prescribe Rx Request Social History Tobacco [...] Miscellaneous Notes * Telephone Encounter - Portia LINN - 05/01/2021 4:20 PM EDT BP Readings from Last 3 Encounters: 02/27/21 120/68 01/04/21 120/74 10/28/20 138/80 * Telephone Encounter - Mulu Fox - 05/01/2021 4:01 PM EDT Jadon 01/04/21 Nov 05/10/21 documented in this encounter Plan of Treatment Not on file documented as of this encounter Visit Diagnoses Not on filedocumented in this encounter Care Teams Underwriting Technician Relationship Specialty Start Date End Date Mily Lawrence MD PCP - General Internal Medicine 03/09/19 Ralf Gastelum MD 300 [facility] [address] [place] [address] Specialist Cardiovascular Disease 06/08/22 Gretchen Juan MD 175 [facility] 300 [place] [address] Surgeon Neurosurgery 02/13/23 Katherine Snow PA-C [address] [address] Specialist Neurosurgery 02/13/23 Per Leahy PA-C [address] [address] Specialist Neurosurgery 02/13/23 documented as of this encounter
--- OUTSIDE RECORDS SUMMARY | 2024-12-01 14:29 | XMS_ITS | Encounter Summary ---
Author Organization [facility] Address [address] [place] [address] Care Team Providers Care Digital Sales Director Name Role Phone Mily Lawrence MD Primary Care Provider [phone] Ralf Gastelum MD Unavailable [phone] Gretchen Juan MD Unavailable [phone] Katherine Snow PA-C Unavailable [phone] Per Leahy PA-C Unavailable [phone] Encounter Details Date Type Department Care Team Description 06/13/2022 SCAN Medical Records [address] [place] [address] Sravanthi Doss Social History Tobacco Use Types [...] Date/Time Associated Diagnosis Comments OUTSIDE LAB Routine 06/13/2022 documented in this encounter Results * OUTSIDE LAB (06/13/2022) Provider Default LAB documented in this encounter Visit Diagnoses Not on filedocumented in this encounter Care Teams Digital Sales Director Relationship Specialty Start Date End Date Mily Lawrence MD PCP - General Internal Medicine 03/09/19 Ralf Gastelum MD 300 [facility] 154 [place] [address] Specialist Cardiovascular Disease 06/08/22 Gretchen Juan MD [address] [address] Surgeon Neurosurgery 02/13/23 Katherine Snow PA-C [address] [address] Specialist Neurosurgery 02/13/23 Per Leahy PA-C [address] [address] Specialist Neurosurgery 02/13/23 documented as of this encounter
--- OUTSIDE RECORDS SUMMARY | 2024-12-01 14:29 | XMS_ITS | Clinical Summary ---
Author Organization [facility] Address [address] [place] [address] Care Team Providers Care Sand Hauler Name Role Phone Mily Lawrence MD Primary Care Provider [phone] Allergies Active Allergy Reactions Criticality Noted Date [...] this topic Medical Devices Implanted Type Area Export Agent Device Identifier Shelf Expiration Date Model / Serial / Lot Putty Vesuvius 100 5ml Stry-K2m [id number] - [id number] Implanted:Qty: 1 on 07/16/2024 [place] [facility] [place] Lateral: Spine Lumbar LAXMI SPINE 02/17/2027 [id number] / [id number] / Bone Graft Spine Infus Xsm Medt-Sofa [id number] - [id number] Implanted:Qty: 1 on 07/16/2024 by [place]ward [place] [facility] [place] Lateral: Spine Lumbar MEDTR[employer]IC SOFAMOR DANEK 11/20/2025 [id number] / / [id number] [place] Interbody System Implanted:Qty: 1 on 07/16/2024 by Nathan [place]ward [place] [facility] [place] Lateral: Spine Lumbar LAXMI - MEDICAL 10/30/2028 [id number] / / [id number] Plate [facility] 2hl 18mm Stry-K2m [id number] - [id number] Implanted:Qty: 1 on 07/16/2024 by Nathan [place]ward [place] [facility] [place] Lateral: Spine Lumbar LAXMI SPINE [id number] / / 5.0x40mm Screw Implanted:Qty: 2 on 07/16/2024 by Nathan [place]ward [place] [facility] [place] L[place]: Spine Lumbar LAXMI - MEDICAL [id number] / / Plate Assembly Screw Implanted:Qty: 1 on 07/16/2024 by Nathan [place]ward [place] [facility] [place] L[place]: Spine Lumbar LAXMI - MEDICAL [id number] / / Advance Directives For more information, please contact: [phone] Latest Code Status on File Code Status [...] way: discussion with patient . Care Teams Sand Hauler Relationship Specialty Start Date End Date Mily Lawrence MD [address] [place] [phone] PCP - General Internal Medicine 06/12/17
--- OUTSIDE RECORDS SUMMARY | 2024-12-01 14:29 | XMS_ITS | Encounter Summary ---
Author Organization [facility] Address [address] [place] [address] Care Team Providers Care Pricer Name Role Phone Mily Lawrence MD Primary Care Provider +[phone] Ralf Gastelum MD Unavailable [phone] Gretchen Juan MD Unavailable [phone] Katherine Snow PA-C Unavailable [phone] Per Leahy PA-C Unavailable [phone] Encounter Details Date Type Department Care Team Description 01/22/2024 Orders Only Medical Records [address] [place] [id number] [place] [address] Social History Tobacco Use Types Packs/Day Years [...] PLAIN FILM (01/21/2024) Narrative Authorizing Provider Result [facility] RADIOLOGY documented in this encounter Visit Diagnoses Not on filedocumented in this encounter Care Teams Pricer Relationship Specialty Start Date End Date Mily Lawrence MD PCP - General Internal Medicine 03/09/19 Ralf Gastelum MD 300 [facility] [address] [place] [address] Specialist Cardiovascular Disease 06/08/22 Gretchen Juan MD 175 [facility] 300 [place] [address] Surgeon Neurosurgery 02/13/23 Katherine Snow PA-C 175 [facility] 300 [place] [address] Specialist Neurosurgery 02/13/23 Per Leahy PA-C 175 [facility] 300 [place] [address] Specialist Neurosurgery 02/13/23 documented as of this encounter
--- OUTSIDE RECORDS SUMMARY | 2024-12-01 14:29 | XMS_ITS | Encounter Summary ---
Author Organization [facility] Address [address] [place] [address] Care Team Providers Care Foundation Engineer Name Role Phone Mily Lawrence MD Primary Care Provider [phone] Ralf Gastelum MD Unavailable [phone] Gretchen Juan MD Unavailable [phone] Katherine Snow PA-C Unavailable [phone] Per Leahy PA-C Unavailable [phone] Reason for Visit * Reason Comments E-prescribe Rx Request Encounter Details Date Type Department Care Team Description 05/11/2022 Refill Internal Medicine [address], [address] [place] [address] Mily Lawrence MD [address] [place] [phone] E-prescribe Rx Request Social History Tobacco [...] suspected to have Coronavirus/COVID-19? No / Unsure 05/01/2022 9:16 AM EDT documented as of this encounter Miscellaneous Notes * Telephone Encounter - Portia Kendrick - 05/11/2022 2:50 PM EDT Orders Only on 05/01/2022 Component Date Value [...] PHOS 05/01/2022 66 * Telephone Encounter - Teodoramajo Jocelyn - 05/11/2022 2:28 PM EDT LOGAN 04/29/22 documented in this encounter Plan of Treatment Not on file documented as of this encounter Visit Diagnoses Not on filedocumented in this encounter Care Teams Foundation Engineer Relationship Specialty Start Date End Date Mily Lawrence MD PCP - General Internal Medicine 03/09/19 Ralf Gastelum MD 300 [facility] [address] [place] [address] Specialist Cardiovascular Disease 06/08/22 Gretchen Juan MD [address] [address] Surgeon Neurosurgery 02/13/23 Katherine Snow PA-C 175 [facility] 300 [place] [address] Specialist Neurosurgery 02/13/23 Per Leahy PA-C 175 [facility] 300 [place] [address] Specialist Neurosurgery 02/13/23 documented as of this encounter
--- OUTSIDE RECORDS SUMMARY | 2024-12-01 14:29 | XMS_ITS | Encounter Summary ---
Author Organization [facility] Address [address] [place] [address] Care Team Providers Care Post Partum Nurse Name Role Phone Mily Lawrence MD Primary Care Provider [phone] Ralf Gastelum MD Unavailable [phone] Gretchen Juan MD Unavailable [phone] Katherine Snow PA-C Unavailable [phone] Per Leahy PA-C Unavailable [phone] Reason for Visit * Reason Comments E-prescribe Rx Request Encounter Details Date Type Department Care Team Description 01/30/2021 Refill Internal Medicine [address], [address] [place] [address] Mily Lawrence MD [address] [place] [phone] E-prescribe Rx Request Social History Tobacco [...] encounter Miscellaneous Notes * Telephone Encounter - Mulu Fox - 02/02/2021 3:49 PM EDT Jadon 01/04/21 Nov 05/10/21 documented in this encounter Plan of Treatment Not on file documented as of this encounter Visit Diagnoses Not on filedocumented in this encounter Care Teams Post Partum Nurse Relationship Specialty Start Date End Date Mily Lawrence MD PCP - General Internal Medicine 03/09/19 Ralf Gastelum MD 300 [facility] [address] [place] [address] Specialist Cardiovascular Disease 06/08/22 Gretchen Juan MD 175 [facility] 300 [place] [address] Surgeon Neurosurgery 02/13/23 Katherine Snow PA-C 175 [facility] 300 [place] [address] Specialist Neurosurgery 02/13/23 Per Leahy PA-C 175 [facility] [address] [place] [address] Specialist Neurosurgery 02/13/23 documented as of this encounter
--- OUTSIDE RECORDS SUMMARY | 2024-12-01 14:29 | XMS_ITS | Encounter Summary ---
Author Organization [facility] Address [address] [place] [address] Care Team Providers Care Bowling Ball Grader Name Role Phone Mily Lawrence MD Primary Care Provider [phone] Ralf Gastelum MD Unavailable [phone] Gretchen Juan MD Unavailable [phone] Katherine Snow PA-C Unavailable [phone] Per Leahy PA-C Unavailable [phone] Encounter Details Date Type Department Care Team Description 09/12/2022 Rail Manager Report Medical Records [address] [place] [id number] Evelio Smith Social History Tobacco Use Types [...] suspected to have Coronavirus/COVID-19? No / Unsure 09/10/2022 12:19 PM EST documented as of this encounter Plan of Treatment Not on file documented as of this encounter Visit Diagnoses Not on filedocumented in this encounter Care Teams Bowling Ball Grader Relationship Specialty Start Date End Date Mily Lawrence MD PCP - General Internal Medicine 03/09/19 Ralf Gastelum MD 300 [facility] [address] [place] [address] Specialist Cardiovascular Disease 06/08/22 Gretchen Juan MD [address] [facility] 300 [place] [address] Surgeon Neurosurgery 02/13/23 Katherine Snow PA-C 175 [facility] 300 [place] [address] Specialist Neurosurgery 02/13/23 Per Leahy PA-C 175 [facility] 300 [place] [address] Specialist Neurosurgery 02/13/23 documented as of this encounter
--- OUTSIDE RECORDS SUMMARY | 2024-12-01 14:29 | XMS_ITS | Encounter Summary ---
Author Organization [facility] Address [address] [place] [address] Care Team Providers Care Casing Blower Name Role Phone Mily Lawrence MD Primary Care Provider [phone] Ralf Gastelum MD Unavailable [phone] Gretchen Juan MD Unavailable [phone] Katherine Snow PA-C Unavailable [phone] Per Leahy PA-C Unavailable [phone] Reason for Visit * Reason Comments E-prescribe Rx Request Encounter Details Date Type Department Care Team Description 04/05/2021 Refill Internal Medicine - [address], [address] [place] [address] Mily Lawrence MD [address] [place] [phone] E-prescribe Rx Request Social History Tobacco [...] * Telephone Encounter - Walt Ruano - 04/05/2021 8:52 AM EDT Jadon 01/04/21 Nov 05/10/21 BP Readings from Last 3 Encounters: 02/27/21 120/68 01/04/21 120/74 10/28/20 138/80 * Telephone Encounter - Ashli Alegria - 04/05/2021 8:47 AM EDT Jadon 01/04/21 Nov 05/10/21 documented in this encounter Plan of Treatment Not on file documented as of this encounter Visit Diagnoses Not on filedocumented in this encounter Care Teams Casing Blower Relationship Specialty Start Date End Date Mily Lawrence MD PCP - General Internal Medicine 03/09/19 Ralf Gastelum MD [address] [facility] 154 [place] [address] Specialist Cardiovascular Disease 06/08/22 Gretchen Juan MD [address] [address] Surgeon Neurosurgery 02/13/23 Katherine Snow PA-C [address] [address] Specialist Neurosurgery 02/13/23 Per Leahy PA-C [address] [address] Specialist Neurosurgery 02/13/23 documented as of this encounter
[2024-12-01 15:25] LABS: Eosinophils Absolute Auto 0.2 X10*3/uL (0.0-0.4); Eosinophils Percent Auto 3.7 % (0-4); Hemoglobin 13.8 g/dl (12.0-16.0); Imm Gran Abs Auto 0.01 X10*3/uL (0.00-0.03); Imm Gran Pct Auto 0.2 % (0.0-0.4); Lymphocytes Absolute Auto 2.2 X10*3/uL (1.2-4.9); Lymphocytes Percent Auto 53.5 % (20-40); Mean Corpuscular HGB Conc 32.9 g/dl (31.0-35.0); Mean Corpuscular Hemoglobin 27.9 pg (27.0-33.0); Monocytes Absolute Auto 0.3 X10*3/uL (0.1-1.2); Monocytes Percent Auto 7.3 % (2-11); Neutrophils Absolute Auto 1.4 x10*3/uL (2.0-8.3); Neutrophils Percent Auto 34.3 % (45-73); Platelet Count 274 X10*3/uL (160-400); Red Blood Count 4.94 X10*6/uL (4.20-5.50); Red Cell Distribution Width 12.9 % (11.0-16.0); White Blood Count 4.1 X10*3/uL (4.8-10.8)
[2024-12-01 16:11] LABS: Estimated Average Glucose 105 mg/dL; Hemoglobin A1C 121.8507 umol/L; Hemoglobin A1c % 5.3 % (<6.0); Total Hemoglobin (HGBA1C) 3575.9782 umol/L
[2024-12-01 16:24] LABS: Vitamin B12 706 pg/mL (200-900)
[2024-12-01 17:55] LABS: Alanine Aminotransferase 23 U/L (0-31); Albumin Level 4.4 g/dL (3.5-5.0); Alkaline Phosphatase 74 U/L (39-117); Anion Gap 10 (12-20); Aspartate Amino Transferase 31 U/L (5-31); Bilirubin Total 0.6 mg/dL (0.0-1.0); Blood Urea Nitrogen 10 mg/dL (9-16); Calcium 9.5 mg/dL (8.4-10.2); Carbon Dioxide 25 mmol/L (22-29); Chloride 109 mmol/L (96-108); Estimated Glomerular Filt Rate > 60; Glucose Random 84 mg/dL (60-115); Potassium 3.9 mmol/L (3.3-5.1); Sodium 140 mmol/L (135-145); Total Protein 8.1 g/dL (6.5-8.0)
[2024-12-01 18:15] LABS: TSH reflex Free T4 1.53 uIU/mL (0.32-4.0)
[2024-12-06 16:53] LABS: Vitamin D 25-OH, D2 <4 ng/mL; Vitamin D 25-OH, D3 41 ng/mL; Vitamin D 25-OH, Total 41 ng/mL (30-100)
== END 2024-12-01 13:20 | disposition home or self-care (01) ==
LOC: HO.LAB 13:19
PROVIDERS: Absent Provider Internal Medicine Endocrinology, Diabetes & Metabolism; PCP Internal Medicine; Visit Provider Nurse Practitioner Family
DX: R20.2 Paresthesia of skin (principal); M79.601 Pain in right arm; M79.602 Pain in left arm; E78.5 Hyperlipidemia, unspecified; E55.9 Vitamin D deficiency, unspecified; F41.8 Other specified anxiety disorders; R25.1 Tremor, unspecified; E51.9 Thiamine deficiency, unspecified; E53.1 Pyridoxine deficiency; Z13.1 Encounter for screening for diabetes mellitus
CPT/HCPCS: 36415; 80053; 82306; 82607; 82746; 83036; 84207; 84425; 84443; 85025

== ENCOUNTER 2024-12-03 14:00 | Outpatient (AMB) | payer OTHER, SELFPAY ==
--- NOTE | 2024-12-03 14:04 | MHC.OFFVIS ---
Vital Signs 12/03/24 14:11 Height 5 ft 4.65 in Weight 208 lb 15.971 oz BMI 35.2 BP 140/80 H Pulse 70 Pulse Source Pulse Oximeter Pulse Oximetry (%) 98 Oxygen Delivery Method Room Air Intake Visit Reasons: f/u PCOS/ pituitary microadenoma Intake Note: Patient present today for Pituitary Adenoma and Hirsutism follow up. Natural Gas Plant Technician Required: No Accompanied by: Self / Same As Patient Allergies Sulfa (Sulfonamide Antibiotics) Allergy (Mild, Verified 12/03/24 14:08) Hives adhesive tape Adverse Reaction (Mild, Verified 12/03/24 14:08) Rash Medication List - Last Reconciled 12/03/24 by Oliver Blank MD acetaminophen 500 mg PO Q6H PRN acetaminophen ER (Tylenol 8 Hour) 650 mg PO Q12H atorvastatin 10 mg PO DAILY celecoxib 0 mg PO cetirizine (Zyrtec) 10 mg PO DAILY PRN cholecalciferol (vitamin D3) (Vitamin D3) 50 mcg PO DAILY cyclobenzaprine 10 mg PO BID 30 days diclofenac sodium 1% 4 grams topical BID gabapentin orally 2 times a day; 30 days galcanezumab-gnlm (Emgality Pen) 240 mg (2 mL) subcut ONCE 30 days hydrochlorothiazide 25 mg PO DAILY ketoconazole 2% topical lisinopril 30 mg PO DAILY melatonin 3 mg PO BEDTIME PRN metoprolol tartrate 50 mg PO BID onabotulinumtoxinA (Botox) 100 units IM ONCE 12 weeks ondansetron HCl 4 mg PO Q8H PRN polyethylene glycol 3350 17 grams PO DAILY pyridoxine (vitamin B6) (Vitamin B-6) 250 mg PO DAILY sertraline 100 mg PO DAILY thiamine HCl (vitamin B1) mg PO tramadol 50 mg PO QID PRN trazodone 50 mg PO BEDTIME ubrogepant (Ubrelvy) 50 - 100 mg (0.5 - 1 x 100 mg) PO ONCE PRN 30 days HPI Comments Details: This is a 59-year-old female found to have an? incidental pituitary micro adenoma. She denies any galactorrhea. She denies any symptoms of acromegaly . She denies any sx of Babb's Syndrome except for hair growth but no easy bruising . MRI done for Chapin's Palsy . Postmenopausal since early 30s There is a 3 mm focus of hypoenhancement within the left spect of the pituitary gland that could reflect a pituitary microadenoma which can be correlated with endocrine function tests. There is no sellar/suprasellar mass effect. He does complain of gradual increase in hair growth on the face. She is incontinent of urine and does not desire to go in spironolactone future C/O frequent headaches PFSH Medical History (Updated 11/23/24 @ 13:44 by SKYE Rios) Radiculopathy Cervical radiculopathy at C7 Hirsutism Vitamin D deficiency Insomnia Depression with anxiety GERD (gastroesophageal reflux disease) HLD (hyperlipidemia) Obstructive sleep apnea Urinary incontinence Post-thrombotic syndrome Congestive heart failure (CHF) Degenerative disc disease, cervical Osteoarthritis Lumbosacral radiculitis Cervical post-laminectomy syndrome Brachial radiculitis Surgical History Hx of knee surgery H/O breast biopsy History of lumbar spinal fusion S/P laparoscopic surgery Hx of tubal ligation History of total knee replacement (TKR) Hx of neck surgery Hx of hand surgery Hx of colonoscopy Family History Mother Breast CA DM (diabetes mellitus) HTN (hypertension) Arthritis ESRD (end stage renal disease) Father Arthritis ESRD (end stage renal disease) Maternal Aunt Breast CA Social History Household Members: None Alcohol intake: current Alcohol intake frequency: a few times a week Patient Tobacco Use Status: Never used Tobacco Substance Use Type: Marijuana Assessment & Plan Assessment & Plan (1) Pituitary microadenoma: Code(s): D35.2 - Benign neoplasm of pituitary gland Category: Medical Plan: This 59-year-old black female with a history of incidentally discovered? Pituitary micro adenoma most likely non- secretory. Fransico's has ruled out with a normal 24 hour urine . Repeat MRI of the pituitary . If MRI brain stable might consider not doing repeat MRIs. We will also send patient to coroner's juror. We talked about the use of weight loss medications particularly G LP 1 and G LP 1/G IP but the patient wants to hold off on this for now (2) Hirsutism: Code(s): L68.0 - Hirsutism Category: Medical Plan: Laboratory workup shows increase testosterone consistent with polycystic ovarian. Patient had declined use of spironolactone because of urinary incontinence Orders: Orders MR head/brain wo/w con Today D35.2 - Benign neoplasm of pituitary gland Referrals Nutrition/Dietitian Referral D35.2 - Benign neoplasm of pituitary gland Coding Level of Care Code Est Pt Level 3 (51391) Diagnoses Pituitary microadenoma D35.2 Hirsutism L68.0
--- OUTSIDE RECORDS SUMMARY | 2024-12-03 14:04 | XMS_ITS | Encounter Summary ---
Author Organization [facility] Address [address] [place] [address] Care Team Providers Care Pharmacy Technician Per Diem Name Role Phone Mily Lawrence MD Primary Care Provider Ralf Gastelum MD Unavailable [phone] Gretchen Juan MD Unavailable [phone] Katherine Snow PA-C Unavailable [phone] Per Leahy PA-C Unavailable [phone] Reason for Visit * Reason Onset Date Comments Medication Injection, Joint 07/27/2021 norma ohumeral injection @ [facility] on 08/09/21 for 1pm, arrive for 12:30pm to outpatient registration on Encounter Details Date Type Department Care Team Description 07/27/2021 Telephone [facility] [address] [address] Marci Bernardo PA-C [address] [id number] Medication Injection, Joint (glenohumeral injection @ [facility] on 08/09/21 for 1pm, arrive for 12:30pm [...] aware of her glenohumeral injection scheduled at [facility] on 08/09/21 at 1pm, with an arrivaltime of 12:30pm to outpatient registration located on the first floor of the hospital. documented in this encounter Plan of Treatment Not on file documented as of this encounter Visit Diagnoses Not on filedocumented in this encounter Care Teams Pharmacy Technician Per Diem Relationship Specialty Start Date End Date Mily Lawrence MD PCP - General Internal Medicine 03/09/19 Ralf Gastelum MD 300 [facility] [address] [place] [address] Specialist Cardiovascular Disease 06/08/22 Gretchen Juan MD 175 [facility] 300 [place] [address] Surgeon Neurosurgery 02/13/23 Katherine Snow PA-C [address] [address] Specialist Neurosurgery 02/13/23 Per Leahy PA-C [address] [address] Specialist Neurosurgery 02/13/23 documented as of this encounter
--- OUTSIDE RECORDS SUMMARY | 2024-12-03 14:04 | XMS_ITS | Encounter Summary ---
Author Organization [facility] Address [address] [place] [address] Care Team Providers Care House Parent Name Role Phone Mily Lawrence MD Primary Care Provider [phone] Ralf Gastelum MD Unavailable [phone] Gretchen Juan MD Unavailable [phone] Katherine Snow PA-C Unavailable [phone] Per Leahy PA-C Unavailable [phone] Encounter Details Date Type Department Care Team Description 09/28/2022 Orders Only Medical Records [address] [place] [id number] Abstract, Provider Routine medical exam Social History Tobacco Use Types Packs/Day [...] Recorded In the last 10 days, have nam u been in contact with someone who was confirmed or suspected to have Coronavirus/COVID-19? No / Unsure 09/25/2022 2:37 PM EST documented as of this encounter Plan of Treatment Not on file documented as of this encounter Procedures Procedure Name Priority Date/Time Associated Diagnosis Comments SCR MAMMO BI INCL CAD Routine 09/27/2022 Routine medical exam documented in this encounter Results * SCR MAMMO BI INCL CAD (09/27/2022) Mily Lawrence MD MAMMOGRAPHY documented in this encounter Visit Diagnoses Diagnosis Routine medical exam Routine general medical examination at a health care facility documented in this encounter Care Teams House Parent Relationship Specialty Start Date End Date Mily Lawrence MD PCP - General Internal Medicine 03/09/19 Ralf Gastelum MD 300 [facility] [address] [place] [address] Specialist Cardiovascular Disease 06/08/22 Gretchen Juan MD [address] [address] Surgeon Neurosurgery 02/13/23 Katherine Snow PA-C 175 [facility] 300 [place] [address] Specialist Neurosurgery 02/13/23 Per Leahy PA-C [address] [address] Specialist Neurosurgery 02/13/23 documented as of this encounter
--- OUTSIDE RECORDS SUMMARY | 2024-12-03 14:04 | XMS_ITS | Encounter Summary ---
Author Organization [facility] Address [address] [place] [address] Care Team Providers Care Commercial Marketing Specialist Name Role Phone Mily Lawrence MD Primary Care Provider [phone] Ralf Gastelum MD Unavailable [phone] Gretchen Juan MD Unavailable [phone] Katherine Snow PA-C Unavailable [phone] Per Leahy PA-C Unavailable [phone] Encounter Details Date Type Department Care Team Description 12/25/2022 Novelty Maker Report Medical Records [address] [place] [id number] Evelio Smith Social History Tobacco Use Types [...] filedocumented in this encounter Care Teams Commercial Marketing Specialist Relationship Specialty Start Date End Date Mily Lawrence MD PCP - General Internal Medicine 03/09/19 Ralf Gastelum MD 300 [facility] [address] [place] [address] Specialist Cardiovascular Disease 06/08/22 Gretchen Juan MD 175 [facility] 300 [place] [address] Surgeon Neurosurgery 02/13/23 Katherine Snow PA-C 175 [facility] 300 [place] [address] Specialist Neurosurgery 02/13/23 Per Leahy PA-C 175 [facility] 300 [place] [address] Specialist Neurosurgery 02/13/23 documented as of this encounter
--- OUTSIDE RECORDS SUMMARY | 2024-12-03 14:04 | XMS_ITS | Encounter Summary ---
Author Organization [facility] Address [address] [place] [address] Care Team Providers Care Customer Complaint Clerk Name Role Phone Mily Lawrence MD Primary Care Provider [phone] Ralf Gastelum MD Unavailable [phone] Gretchen Juan MD Unavailable [phone] Katherine Snow PA-C Unavailable [phone] Per Leahy PA-C Unavailable [phone] Encounter Details Date Type Department Care Team Description 12/13/2022 Turning And Beading Machine Operator Report Medical Records [address] [place] [id number] Evelio Smith Social History Tobacco Use Types [...] on filedocumented in this encounter Care Teams Customer Complaint Clerk Relationship Specialty Start Date End Date Mily Lawrence MD PCP - General Internal Medicine 03/09/19 Ralf Gastelum MD 300 [facility] [address] [place] [address] Specialist Cardiovascular Disease 06/08/22 Gretchen Juan MD 175 [facility] 300 [place] [address] Surgeon Neurosurgery 02/13/23 Katherine Snow PA-C 175 [facility] 300 [place] [address] Specialist Neurosurgery 02/13/23 Per Leahy PA-C 175 [facility] 300 [place] [address] Specialist Neurosurgery 02/13/23 documented as of this encounter
--- OUTSIDE RECORDS SUMMARY | 2024-12-03 14:05 | XMS_ITS | Encounter Summary ---
Author Organization [facility] Address [address] [place] [address] Care Team Providers Care Pharmaceutical Plant Operator Name Role Phone Mily Lawrence MD Primary Care Provider [phone] Ralf Gastelum MD Unavailable [phone] Gretchen Juan MD Unavailable [phone] Ktaherine Snow PA-C Unavailable [phone] Per Leahy PA-C Unavailable [phone] Encounter Details Date Type Department Care Team Description 12/16/2019 Fence Manufacture Supervisor Report Medical Records [address] [place] [address] Magdi Daniel MD [address] [place] [id number] Social History Tobacco Use Types Packs/Day Years [...] on filedocumented in this encounter Care Teams Pharmaceutical Plant Operator Relationship Specialty Start Date End Date Mily Lawrence MD PCP - General Internal Medicine 03/09/19 Ralf Gastelum MD 300 [facility] [address] [place] [address] Specialist Cardiovascular Disease 06/08/22 Gretchen Juan MD 175 [facility] 300 [place] [address] Surgeon Neurosurgery 02/13/23 Katherine Snow PA-C 175 [facility] 300 [place] [address] Specialist Neurosurgery 02/13/23 Per Leahy PA-C 175 [facility] 300 [place] [address] Specialist Neurosurgery 02/13/23 documented as of this encounter
--- OUTSIDE RECORDS SUMMARY | 2024-12-03 14:05 | XMS_ITS | Data Portability ---
Author Organization [facility] Address [address] [facility] [address] [place] [address] Care Team Providers Care Military Pay Technician Name Role Phone MICHAEL HOOKER Primary Care Provider [facility] ([facility]) OTHER Assessment Encounter Date Assessment Date [...] like a referral to Dr. Hayward in [place], [place] I recommend physical therapy with Anderson Murcia at the in [place], [place]. She will follow up in six [...] booked for the same. She needs a jinriksha driver on the day of the procedure. [...] booked for the same. She needs a jinriksha driver on the day of the procedure. Insurance approval needed. I have encouraged to??start physical therapy and discussed the importance of core strengthening. She si on [employer] and will call back after consulting with [...] 2022 023 HAYDEN Hayward MD, Oskar Garcia, [place], [address], 05:00:52 Procedures None recorded. Surgeries None recorded. Imaging None recorded. Medication Orders None recorded. Patient TargetsNo targets recorded. Patient Instructions Encounter Date Encounter Id Patient Instructions Last Modified By Organization Details Last Modified Time 01/24/2023 [id number] She was advised against bed rest lasting longer than four days and to continue activities as tolerated. [email or web address] Not available 01/30/2023 16:21:29 04/01/2023 [id number] physical therapy* HAYDEN Not available 10/13/2023 05:00:58 She was advised against bed rest lasting longer than four days and to continue activities as tolerated. [email or web address] Not available 04/05/2023 11:18:39 12/02/2023 [id number] She was advised against bed rest lasting longer than four days and to continue activities as tolerated. [email or web address] Not available 12/02/2023 14:52:52 03/27/2024 [id number] She was advised against bed rest lasting [...] ney spine No observ ation record ed. [facility] [address] [place] [address], [address], 01/24/2023 13:46:21 02/09/20 23 02/06/2023 MRI, cervi ney spine , w/o contr ast No observ ation record ed. [facility] [address] [place], [address], 02/11/2023 15:20:32 Result Notes None recorded. 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 Active Evelio grady MD [address] , [address], [place], [address], [place] [facility] 6 08:51:25 Displacement of lumbar intervertebral disc without myelopathy 20817197 Active Evelio grady MD [address] , [address], [place], [address], [place] [facility] 6 08:55:36 Lumbosacral radiculitis [id number] Lauryn grady MD [address] , [address], [place], [address], [place] [facility] 6 08:55:36 Degeneration of cervical intervertebral disc [id number] Lauryn grady MD [address] , [address], [place], [address], [place] [facility] 6 08:51:25 Cervical post-laminecto my syndrome 782095125 Active Evelio grady MD [address] , [address], [facility] [place], [address], [place] [facility] 6 08:51:25 Occipital headache 719460 Active Evelio grady MD [address] [facility] , [address], [place], [address], [place] [facility] 6 08:51:25 Problem Notes None recorded. Procedures Surgical History Date Name Laterality Status Provider Name and Address Organization Details Recorded Time 01/09/20 24 Lumbar Epidural steroid injection under fluoroscopic guidance completed Evelio Smith MD [address] [facility] , [address], [place], [address], [place] [facility] 01/09/2024 11:18:14 12/26/19 23 Lumbar Epidural steroid injection under fluoroscopic guidance completed Evelio Smith MD [address] [facility] , [address], [place], [address], [place] [facility] 12/25/2022 13:26:44 07/08/20 19 Greater Occipital Nerve Block(s) completed Evelio Smith MD [address] [facility] , [address], [place], [address], [place] [facility] 07/09/2019 14:01:34 01/07/20 19 Cervical Epidural Steroid injection under fluroscopic guidance completed Evelio Smith MD [address] [facility] , [address], [place], [address], [place] [facility] 01/07/2019 10:50:11 04/24/20 17 Lumbar Epidural steroid injection under fluoroscopic guidance completed Evelio Smith MD [address] [facility] , [address], [place], [address], [place] [facility] 05/02/2017 10:32:28 10/21/19 17 Lumbar Fusion completed Elsa Lainez [place] [facility] 12/18/2018 13:40:37 10/02/20 16 Lumbar Epidural steroid injection under fluoroscopic guidance completed Evelio Smith MD [address] , [address], [place], [address], [place] [facility] 10/02/2016 14:32:08 04/04/20 16 Lumbar Epidural steroid injection under fluoroscopic guidance completed Evelio Smith MD [address] , [address], [place], [address], [place] [facility] 04/04/2016 11:07:10 [...] LastModified Time 12/25/2022 XR, cervical spine completed [facility] [address] [place] [address], [address], 01/24/2023 13:46:21 02/06/2023 MRI, cervical spine, w/o contrast completed [facility] [address] [place] [address], [address], 02/11/2023 15:20:32 Procedure Notes None recorded. Medical Equipment None Reported. Allergies Allergen ID Allergen Name Allergen Category Reaction Reaction Severity Criticality Documentation Date Start Date Code Code System Note Provider Name and Address Organization Details Recorded Time 86638 Substance with sulfonami de structure and antibacte rial mechanism of action (substanc e) medicatio n hives Not available Not available 02/27/2016 78191 8003 SNOMED Elsa paris [place] - [facility] [...] ar syringe TO BE ADMINISTE RED BY [employer] T FOR IMMUNIZAT ION 12/18 completed Not [...] % 107 mm[Hg] 77 mm[Hg] Corina Saldivar PA [facility] 3 13:18:03 Date Recorded Body height Heart rate Oxygen saturation Oxygen saturation in Arterial blood by Pulse oximetry Body mass index (BMI) Body weight Systolic blood pressure Diastolic blood pressure Provider Name and Address Organization Details Last Updated DateTime 3 162.56 cm 89 /min 98 % 98 % 35.2 kg/m2 41733.4 4 g 165 mm[Hg] 77 mm[Hg] Mary Zamarripa [place] [facility] 3 13:23:02 Date Recorded Body height Heart rate Oxygen saturation Oxygen saturation in Arterial blood by Pulse oximetry Body mass index (BMI) Body weight Systolic blood pressure Diastolic blood pressure Provider Name and Address Organization Details Last Updated DateTime 4 162.56 cm 75 /min 96 % 96 % 34.3 kg/m2 53513.4 7 g 150 mm[Hg] 90 mm[Hg] Deana [...] /min 97 % 97 % 34.3 kg/m2 25671.4 7 g 144 mm[Hg] 91 mm[Hg] Evelio grady MD [facility] [address] , [address], [facility] [place], [address], [place] [facility] 4 10:28:41 Social History Question Answer Notes LastModified by Organizat ion Details LastModified Time Tobacco Smoking Status Never Smoker Not Available [facility] 08/05/2020 03:16:12 What Is Your Level Of Alcohol Consumption? Moderate [id number] Information not available 08/05/2020 Are You Currently Employed? No Disability [email or web address] Information not available 11/23/2021 Which Illicit Or Recreational Drugs Have You Used? No [id number] Information not available 08/05/2020 Education [employer] Information not available 02/27/2016 Live Alone Or With Others? Alone [email or web address] Information not available 02/27/2016 Marital Status [email or web address] Informatio n not available 02/27/2016 What Was The Date Of Your Most Recent Tobacco Screening? 01/31/2019 [id number] Information not available 08/05/2020 Sex: Unknown Functional [...] SNOMED-CT Code Diagnosis ICD10 Code Diagnosis Note [id number] Evleio Smith MD PAIN OFFICE [address] [place] [address] 02/27/2016 14:19:46 02/28/2016 08:47:29 Displacement of lumbar intervertebral disc without myelopathy 12851973 M51.26 Lumbosacra l radiculitis 24179573 M54.17 Brachial radiculitis 278 98411 M54.12 Cervical post-laminectomy syndrome 330652750 M96.1 Degenerati on of cervical intervertebral disc 71806070 M50.30 Occipital headache 78293 7 R51 62118 Evelio Smith MD PAIN OFFICE [address] [place] [address] 03/20/2016 08:42:32 03/20/2016 10:30:41 Displacement of lumbar intervertebral disc without myelopathy 71448268 M51.26 Lumbosacra l radiculitis 05972570 M54.17 43157 Evelio Smith MD PAIN OFFICE [address] [place] [address] 04/04/2016 10:15:22 04/04/2016 11:15:33 Displacement of lumbar intervertebral disc without myelopathy 51280870 M51.26 Lumbosacra l radiculitis 98349505 M54.17 48278 Evelio Smith MD PAIN OFFICE [address] [place] [address] 05/10/2016 11:47:50 05/15/2016 08:55:57 Displacement of lumbar intervertebral disc without myelopathy 72912204 M51.26 Lumbosacra l radiculitis 27431233 M54.17 21430 Evelio Smith MD PAIN OFFICE [address] [place] [address] 09/03/2016 10:14:59 09/20/2016 08:51:29 Lumbosacral radiculitis 59684270 M54.17 Displaceme nt of lumbar intervertebral disc without myelopathy 82120238 M51.26 37178 Evelio Smith MD PAIN OFFICE [address] [place] [address] 10/02/2016 13:29:26 10/03/2016 14:29:14 Displacement of lumbar intervertebral disc without myelopathy 45129132 M51.26 Lumbosacra l radiculitis 34189159 M54.17 52001 Evelio Smith MD PAIN OFFICE [address] [place] [address] 03/27/2017 13:22:06 03/28/2017 16:32:03 Cervical radiculopathy 20777830 M54.12 Degenerati on of cervical intervertebral disc 79811281 M50.30 Muscle pain 82969481 M79 .1 Displaceme nt of lumbar intervertebral disc without myelopathy 61606228 M51.26 Lumbosacra l radiculitis 95932505 M54.17 58931 Evelio Smith MD PAIN OFFICE [address] [place] [address] 04/24/2017 13:30:47 05/02/2017 13:43:27 Cervical post-laminectomy syndrome 143842264 M96.1 Cervical radiculopathy 23639870 M54.12 Displaceme nt of lumbar intervertebral disc without myelopathy 43074537 M51.26 Lumbosacra l radiculitis 20618370 M54.17 83662 Evelio Smith MD [facility] PAIN OFFICE [address] [place] [address] 05/16/2017 11:40:03 05/17/2017 11:19:26 Brachial radiculitis 27350507 M54.12 Degenerati on of cervical intervertebral disc 55251180 M50.30 Cervical post-laminectomy syndrome 102042848 M96.1 Occipital headache 79356 7 R51 48991 Evelio Smith MD PAIN OFFICE [address] [place] [address] 12/18/2018 13:31:38 12/18/2018 16:14:01 Brachial radiculitis 59404917 M54.12 Degenerati on of cervical intervertebral disc 53797461 M50.30 Cervical post-laminectomy syndrome 176852199 M96.1 Occipital headache 61985 7 R51 87435 Evelio Smith MD PAIN OFFICE [address] [place] [address] 01/06/2019 08:42:42 01/07/2019 10:53:06 Brachial radiculitis 59793912 M54.12 Degenerati on of cervical intervertebral disc 75827014 M50.30 Cervical post-laminectomy syndrome 798376590 M96.1 Occipital headache 93214 7 R51 56031 Evelio Smith MD PAIN OFFICE [address] [place] [address] 01/28/2019 14:04:46 01/31/2019 10:24:31 Brachial radiculitis 84056486 M54.12 Degenerati on of cervical intervertebral disc 50823252 M50.30 Cervical post-laminectomy syndrome 050610065 M96.1 Occipital headache 06551 7 R51 99728 Evelio Smith MD PAIN OFFICE [address] [place] [address] 06/09/2019 14:32:10 06/26/2019 15:58:13 Occipital headache 247103 R51 Degenerati on of cervical intervertebral disc 38498947 M50.30 Cervical post-laminectomy syndrome 919906636 M96.1 Brachial radiculitis 278 19953 M54.12 61821 Evelio Smith MD [facility] PAIN OFFICE [address] [place] [address] 07/08/2019 15:29:45 07/09/2019 14:03:49 Occipital headache 531404 R51 Cervical post-laminectomy syndrome 250328156 M96.1 Degenerati on of cervical intervertebral disc 68346895 M50.30 Brachial radiculitis 278 37523 M54.12 99448 Evelio Smith MD PAIN OFFICE [address] [place] [address] 08/24/2019 13:24:13 08/25/2019 11:25:36 Occipital headache 130968 R51 Degenerati on of cervical intervertebral disc 40387884 M50.30 Cervical post-laminectomy syndrome 394234988 M96.1 Brachial radiculitis 278 01448 M54.12 27788 Evelio Smith MD [facility] PAIN OFFICE [address] [facility] [place] [address] 03/07/2020 13:03:14 03/07/2020 14:34:46 Occipital headache 257073 R51 Degenerati on of cervical intervertebral disc 09218144 M50.30 Cervical post-laminectomy syndrome 885722385 M96.1 Brachial radiculitis 278 04422 M54.12 16590 Evelio Smith MD PAIN OFFICE [address] [facility] [place] [address] 11/23/2021 13:01:22 11/23/2021 13:27:11 Displacement of lumbar intervertebral disc without myelopathy 70202606 M51.26 Lumbosacra l radiculitis 64385933 M54.17 Brachial radiculitis 278 84117 M54.12 Cervical post-laminectomy syndrome 637356569 M96.1 Degenerati on of cervical intervertebral disc 71050858 M50.30 Occipital headache 25703 7 R51.9 79203 Evelio Smith MD PAIN OFFICE [address] [facility] [place] [address] 09/12/2022 08:14:50 09/12/2022 15:42:09 Displacement of lumbar intervertebral disc without myelopathy 39147312 M51.26 Lumbosacra l radiculitis 73770270 M54.17 Brachial radiculitis 278 22663 M54.12 Cervical post-laminectomy syndrome 678492839 M96.1 Degenerati on of cervical intervertebral disc 32034989 M50.30 Occipital headache 57729 7 R51.9 49787 Evelio Smith MD PAIN OFFICE [address] [place] [address] 12/06/2022 14:08:50 12/13/2022 14:02:45 Displacement of lumbar intervertebral disc without myelopathy 59342501 M51.26 Lumbosacra l radiculitis 57293615 M54.17 Brachial radiculitis 278 02595 M54.12 Cervical post-laminectomy syndrome 528679792 M96.1 Degenerati on of cervical intervertebral disc 58386707 M50.30 Occipital headache 67369 7 R51.9 36708 Evelio Smith MD [facility] PAIN OFFICE [address] [place] [address] 12/25/2022 11:32:27 12/25/2022 13:59:32 Displacement of lumbar intervertebral disc without myelopathy 49970080 M51.26 Lumbosacra l radiculitis 56486146 M54.17 Brachial radiculitis 278 79019 M54.12 Cervical post-laminectomy syndrome 506136351 M96.1 Degenerati on of cervical intervertebral disc 22074891 M50.30 Occipital headache 92213 7 R51.9 10160 Evelio Smith MD [facility] PAIN OFFICE [address] [place] [address] 01/24/2023 13:09:55 01/31/2023 14:49:17 Brachial radiculitis 32648714 M54.12 Degenerati on of cervical intervertebral disc 89403622 M50.30 Cervical post-laminectomy syndrome 667238489 M96.1 Occipital headache 09062 7 R51.9 19527 Evelio Smith MD [facility] PAIN OFFICE [address] [place] [address] 04/01/2023 13:14:13 04/05/2023 12:19:21 Lumbosacral radiculitis 14032446 M54.17 Brachial radiculitis 278 96280 M54.12 Degenerati on of cervical intervertebral disc 76209268 M50.30 Cervical post-laminectomy syndrome 027960200 M96.1 Occipital headache 90983 7 R51.9 40093 Evelio Smith MD [facility] PAIN OFFICE [address] [place] [address] 12/02/2023 14:06:57 12/02/2023 14:57:45 Lumbosacral radiculitis 09832587 M54.17 Displaceme nt of lumbar intervertebral disc without myelopathy 78823534 M51.26 Brachial radiculitis 278 23896 M54.12 Cervical post-laminectomy syndrome 885319969 M96.1 Degenerati on of cervical intervertebral disc 82736024 M50.30 Occipital headache 17139 7 R51.9 39869 Evelio Smith MD PAIN OFFICE [address] [place] [address] 01/09/2024 10:01:40 01/09/2024 15:01:59 Displacement of lumbar intervertebral disc without myelopathy 38433968 M51.26 Lumbosacra l radiculitis 20969517 M54.17 Brachial radiculitis 278 36987 M54.12 Cervical post-laminectomy syndrome 212218516 M96.1 Degenerati on of cervical intervertebral disc 83762874 M50.30 Occipital headache 67615 7 R51.9 14788 Evelio Smith MD PAIN OFFICE [address] [place] [address] 03/27/2024 10:21:43 03/31/2024 16:07:49 Displacement of lumbar intervertebral disc without myelopathy 37386236 M51.26 Lumbosacra l radiculitis 91350112 M54.17 Brachial radiculitis 278 56497 M54.12 Cervical post-laminectomy syndrome 973470494 M96.1 Degenerati on of cervical intervertebral disc 57561631 M50.30 Occipital headache 36604 7 R51.9 Health Concerns Section Related Observation LastModified by Organization Detai ls LastModified Time None Recorded Concern Status LastModified by Organization Details LastModified Time None Recorded Advance Directives Directive None Recorded Payers Encounter Date Sequence Insurance Name Policy Number Policy Mojica Covered Member ID Mojica Member ID Guarantor Name 01/24/2023 2 [facility] - DOS PRIOR TO 2023 (MEDICARE REPLACEMENT/ADV ANTAGE - PPO) Ange Montesinos [id number] 04/01/2023 1 [facility] - DOS ON OR AFTER 2023 - ONE CARE (MEDICARE REPLACEMENT/ADV ANTAGE - HMO) Ange Montesinos [id number] 12/02/2023 1 [facility] - DOS ON OR AFTER 2023 - ONE CARE (MEDICARE REPLACEMENT/ADV ANTAGE - HMO) Ange Montesinos [id number] 01/09/2024 1 [facility] - DOS ON OR AFTER 2023 - ONE CARE (MEDICARE REPLACEMENT/ADV ANTAGE - HMO) Ange Montesinos [id number] 03/27/2024 1 [facility] - DOS ON OR AFTER 2023 - ONE CARE (MEDICARE REPLACEMENT/ADV ANTAGE - HMO) Ange Montesinos [id number] Notes Date Note Type Note Provider Name [...] bladder or bowel incontinence. Evelio Smith MD [address] [place] [address] , [address], [place], [address], [place] [facility] 01/31/2023 15:49:56 [...] this time.She states she has been having [place] Palsy for the past one year and sees Dr. 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 She has weakness in her arms and legs . Evelio Smith MD [address] , [address], [place], [address], [facility] 04/05/2023 12:20:51 12/02/2023 text/html She [...] [facility] [place] [place] . She has done physical therapy and had an exacerbation of her pain.She has seen a neurosurgeon in [place], [place] . She wants to wait as she is planning on a knee replacement. She is also in grief as she has lost her mother last year. Evelio Smith MD [address] , [address], [place], [address], [facility] 12/04/2023 16:33:41 01/09/2024 text/html She is here for a lumbar epidural steroid injection under fluoroscopic guidance. Evelio Smith MD [address] , [address], [place], [address], [facility] 01/09/2024 15:09:18 03/27/2024 text/html She [...] [facility] [place] . She has done physical therapy and had an exacerbation of her pain.She has seen a neurosurgeon in [place] . She is S/P knee replacement on 03/03/[address] Segundo and is on eliquis. Evelio Smith MD [address] [place] [address] , [address], [place], [address], [place] [facility] 03/31/2024 16:06:56 OBGyn Episode No OBEpisode recorded.
--- OUTSIDE RECORDS SUMMARY | 2024-12-03 14:05 | XMS_ITS | Encounter Summary ---
Author Organization [facility] Address [address] [place] [address] Care Team Providers Care Marketing Trainee Name Role Phone Mily Lawrence MD Primary Care Provider [phone] Ralf Gastelum MD Unavailable [phone] Gretchen Juan MD Unavailable [phone] Katherine Snow PA-C Unavailable [phone] Per Leahy PA-C Unavailable [phone] Encounter Details Date Type Department Care Team Description 07/09/2019 Supervisor Frame Assembly Report Medical Records [address] [place] [address] Evelio Smith Social History Tobacco Use Types [...] on filedocumented in this encounter Care Teams Marketing Trainee Relationship Specialty Start Date End Date Mily Lawrence MD PCP - General Internal Medicine 03/09/19 Ralf Gastelum MD [address] [facility] [address] [place] [address] Specialist Cardiovascular Disease 06/08/22 Gretchen Juan MD 175 [facility] [address] [place] [address] Surgeon Neurosurgery 02/13/23 Katherine Snow PA-C 175 [facility] [address] [place] [address] Specialist Neurosurgery 02/13/23 Per Leahy PA-C 175 [facility] [address] [place] [address] Specialist Neurosurgery 02/13/23 documented as of this encounter
--- OUTSIDE RECORDS SUMMARY | 2024-12-03 14:05 | XMS_ITS | Encounter Summary ---
Author Organization [facility] Address [address] [place] [address] Care Team Providers Care Tab Cutter Name Role Phone Mily Lawrence MD Primary Care Provider [phone] Ralf Gastelum MD Unavailable [phone] Gretchen Juan MD Unavailable [phone] Katherine Snow PA-C Unavailable [phone] Per Leahy PA-C Unavailable [phone] Encounter Details Date Type Department Care Team Description 08/25/2021 [facility] Medical Records [address] [place] [address] Abstract, Provider Social History Tobacco Use Types [...] on filedocumented in this encounter Care Teams Tab Cutter Relationship Specialty Start Date End Date Mily Lawrence MD PCP - General Internal Medicine 03/09/19 Ralf Gastelum MD [address] [facility] [address] [place] [address] Specialist Cardiovascular Disease 06/08/22 Gretchen Juan MD 175 [facility] [address] [place] [address] Surgeon Neurosurgery 02/13/23 Katherine Snow PA-C 175 [facility] [address] [place] [address] Specialist Neurosurgery 02/13/23 Per Leahy PA-C 175 [facility] [address] [place] [address] Specialist Neurosurgery 02/13/23 documented as of this encounter
--- OUTSIDE RECORDS SUMMARY | 2024-12-03 14:05 | XMS_ITS | Encounter Summary ---
Author Organization [facility] Address [address] [place] [address] Care Team Providers Care Mechanic/Welder Name Role Phone Mily Lawrence MD Primary Care Provider [phone] Ralf Gastelum MD Unavailable [phone] Gretchen Juan MD Unavailable [phone] Katherine Snow PA-C Unavailable [phone] Per Leahy PA-C Unavailable [phone] Reason for Visit * Reason Comments E-prescribe Rx Request Encounter Details Date Type Department Care Team Description 06/09/2019 [facility] Internal Medicine [address], [address] [place] [address] Mily Lawrence MD [address] [place] [phone] E-prescribe Rx Request Social History Tobacco [...] Telephone Encounter - Ghazala Ybarra M.A. - 06/09/2019 8:00 AM EDT Patient would like script to be: E-PRESCRIBED/FAXED TO PHARMACY WHEN WAS THE PATIENT'S LAST APPOINTMENT IN ADULT MEDICINE? 05/26/19 WHEN WAS THE LAST TIME THE PATIENT [...] N/A Patients current insurance carrier is: Payor: [employer] FFS / Plan: [employer] ALLIANCE / Product Type: MEDICAID RISK documented in this encounter Plan of Treatment Not on file documented as of this encounter Visit Diagnoses Not on filedocumented in this encounter Care Teams Mechanic/Welder Relationship Specialty Start Date End Date Mily Lawrence MD PCP - General Internal Medicine 03/09/19 Ralf Gastelum MD 300 [facility] [address] [place] [address] Specialist Cardiovascular Disease 06/08/22 Gretchen Juan MD 175 [facility] 300 [place] [address] Surgeon Neurosurgery 02/13/23 Katherine Snow PA-C 175 [facility] 300 [place] [address] Specialist Neurosurgery 02/13/23 Per Leahy PA-C 175 [facility] 300 [place] [address] Specialist Neurosurgery 02/13/23 documented as of this encounter
--- OUTSIDE RECORDS SUMMARY | 2024-12-03 14:05 | XMS_ITS | Encounter Summary ---
Author Organization [facility] Address [address] [place] [address] Care Team Providers Care Environmental Protection Forester Name Role Phone Mily Lawrence MD Primary Care Provider [phone] Ralf Gastelum MD Unavailable [phone] Gretchen Juan MD Unavailable [phone] Katherine Snow PA-C Unavailable [phone] Per Leahy PA-C Unavailable [phone] Reason for Visit * Reason Comments E-prescribe Rx Request Encounter Details Date Type Department Care Team Description 07/12/2019 [facility] Internal Medicine [address], [address] [place] [address] Mily Lawrence MD [address] [place] [phone] E-prescribe Rx Request Social History Tobacco [...] * Telephone Encounter - Kyra Gleason - 07/13/2019 9:57 AM EDT Patient would like script to be: E-PRESCRIBED/FAXED TO PHARMACY WHEN WAS THE PATIENT'S LAST APPOINTMENT IN ADULT MEDICINE? 05/26/2019 WHEN WAS THE LAST TIME THE PATIENT SAW THEIR PCP? Same as above Does patient have an upcoming appointment? Yes 07/23/2019 (THE MEDICATION REQUESTED IS ON THE MED [...] N/A Patients current insurance carrier is: Payor: [employer] FFS / Plan: [facility] ALLIANCE / Product Type: MEDICAID RISK documented in this encounter Plan of Treatment Not on file documented as of this encounter Visit Diagnoses Not on filedocumented in this encounter Care Teams Environmental Protection Forester Relationship Specialty Start Date End Date iMly Lawrence MD PCP - General Internal Medicine 03/09/19 Ralf Gastelum MD [address] [place] [address] Specialist Cardiovascular Disease 06/08/22 Gretchen Juan MD 175 [facility] 300 [place] [address] Surgeon Neurosurgery 02/13/23 Katherine Snow PA-C 175 [facility] 300 [place] [address] Specialist Neurosurgery 02/13/23 Per Leahy PA-C 175 [facility] 300 [place] [address] Specialist Neurosurgery 02/13/23 documented as of this encounter
--- OUTSIDE RECORDS SUMMARY | 2024-12-03 14:05 | XMS_ITS | Encounter Summary ---
Author Organization [facility] Address [address] [place] [address] Care Team Providers Care Certified Phlebotomy Technician Name Role Phone Mily Lawrence MD Primary Care Provider [phone] Trey Mueller MD Primary Care Provider Unavaila ble Mily Lawrence MD Primary Care Provider [phone] Ralf Gastelum MD Unavailable [phone] Gretchen Juan MD Unavailable [phone] Katherine Snow PA-C Unavailable [phone] Per Leahy PA-C Unavailable [phone] Encounter Details Date Type Department Care Team Description 10/22/2018 Medicaid Analyst Report Medical Records [address] [place] [address] Marci Bernardo PA-C [address] [place] [id number] Social History Tobacco Use Types Packs/Day Years [...] on filedocumented in this encounter Care Teams Certified Phlebotomy Technician Relationship Specialty Start Date End Date Mily Lawrence MD PCP - General Internal Medicine 03/13/17 01/01/19 Trey Mueller MD PCP - General Internal Medicine 01/02/19 03/08/19 Mily Lawrence MD PCP - General Internal Medicine 03/09/19 Ralf Gastelum MD 300 [facility] 154 [place] [address] Specialist Cardiovascular Disease 06/08/22 Gretchen Juan MD [address] [address] Surgeon Neurosurgery 02/13/23 Katherine Snow PA-C [address] [address] Specialist Neurosurgery 02/13/23 Per Leahy PA-C [address] [address] Specialist Neurosurgery 02/13/23 documented as of this encounter
--- OUTSIDE RECORDS SUMMARY | 2024-12-03 14:05 | XMS_ITS | Encounter Summary ---
Author Organization [facility] Address [address] [place] [address] Care Team Providers Care Exterior Designer Name Role Phone Mily Lawrence MD Primary Care Provider [phone] Trey Mueller MD Primary Care Provider Unavaila ble Mily Lawrence MD Primary Care Provider [phone] Ralf Gastelum MD Unavailable [phone] Gretchen Juan MD Unavailable [phone] Katherine Snow PA-C Unavailable [phone] Per Leahy PA-C Unavailable [phone] Reason for Visit * Reason Onset Date Comments Pre Op Visit 12/25/2018 Encounter Details Date Type Department Care Team Description 12/25/2018 Telephone Internal Medicine - [address], [address] [place] [address] Mily Lawrence MD [address] [place] [phone] Pre Op Visit Social History Tobacco [...] Magdi Daniel Office phone number of surgeon: [phone] Fax # for surgeons office: [phone] Where is surgery being performed? [facility] Admitting Diagnosis/problem for surgery: Osteoarthritis PCP: Mily Lawrence Did you verify that the insurance below is correct? YES Patients insurance: Payor: [employer] FFS / Plan: [employer] ALLIANCE / Product Type: MEDICAID RISK documented in this encounter Plan of Treatment Not on file documented as of this encounter Visit Diagnoses Not on filedocumented in this encounter Care Teams Exterior Designer Relationship Specialty Start Date End Date Mily Lawrence MD PCP - General Internal Medicine 03/13/17 01/01/19 Trey Mueller MD PCP - General Internal Medicine 01/02/19 03/08/19 Mily Lawrence MD PCP - General Internal Medicine 03/09/19 Ralf Gastelum MD 300 [facility] [address] [place] [address] Specialist Cardiovascular Disease 06/08/22 Gretchen Juan MD [address] [address] Surgeon Neurosurgery 02/13/23 Katherine Snow PA-C [address] [address] Specialist Neurosurgery 02/13/23 Per Leahy PA-C [address] [address] Specialist Neurosurgery 02/13/23 documented as of this encounter
--- OUTSIDE RECORDS SUMMARY | 2024-12-03 14:05 | XMS_ITS | Encounter Summary ---
Author Organization [facility] Address [address] [place] [address] Care Team Providers Care Nuclear Worker Technician Name Role Phone Mily Lawrence MD Primary Care Provider [phone] Ralf Gastelum MD Unavailable [phone] Gretchen Juan MD Unavailable [phone] Katherine Snow PA-C Unavailable [phone] Per Leahy PA-C Unavailable [phone] Encounter Details Date Type Department Care Team Description 08/25/2019 Corn Cooker Report Medical Records [address] [place] [address] Evelio Smith Social History Tobacco Use Types [...] on filedocumented in this encounter Care Teams Nuclear Worker Technician Relationship Specialty Start Date End Date Mily Lawrence MD PCP - General Internal Medicine 03/09/19 Ralf Gastelum MD 300 [facility] [address] [place] [address] Specialist Cardiovascular Disease 06/08/22 Gretchen Juan MD 175 [facility] 300 [place] [address] Surgeon Neurosurgery 02/13/23 Katherine Snow PA-C 175 [facility] 300 [place] [address] Specialist Neurosurgery 02/13/23 Per Leahy PA-C 175 [facility] 300 [place] [address] Specialist Neurosurgery 02/13/23 documented as of this encounter
--- OUTSIDE RECORDS SUMMARY | 2024-12-03 14:05 | XMS_ITS | Encounter Summary ---
Author Organization [facility] Address [address] [place] [address] Care Team Providers Care Story Writer Name Role Phone Mily Lawrence MD Primary Care Provider [phone] Trey Mueller MD Primary Care Provider Unavaila ble Mily Lawrence MD Primary Care Provider [phone] Ralf Gastelum MD Unavailable [phone] Gretchen Juan MD Unavailable [phone] Katherine Snow PA-C Unavailable [phone] Per Leahy PA-C Unavailable [phone] Encounter Details Date Type Department Care Team Description 12/19/2018 Fitness Professional Report Medical Records [address] [place] [address] Evelio Smith Social History Tobacco Use Types [...] on filedocumented in this encounter Care Teams Story Writer Relationship Specialty Start Date End Date Mily Lawrence MD PCP - General Internal Medicine 03/13/17 01/01/19 Trey Mueller MD PCP - General Internal Medicine 01/02/19 03/08/19 Mily Lawrence MD PCP - General Internal Medicine 03/09/19 Ralf Gastelum MD 300 [facility] 154 [place] [address] Specialist Cardiovascular Disease 06/08/22 Gretchen Juan MD [address] [address] Surgeon Neurosurgery 02/13/23 Katherine Snow PA-C [address] [address] Specialist Neurosurgery 02/13/23 Per Leahy PA-C [address] [address] Specialist Neurosurgery 02/13/23 documented as of this encounter
--- OUTSIDE RECORDS SUMMARY | 2024-12-03 14:05 | XMS_ITS | Encounter Summary ---
Author Organization [facility] Address [address] [place] [address] Care Team Providers Care Carton Making Machinist Name Role Phone Mily Lawrence MD Primary Care Provider [phone] Ralf Gastelum MD Unavailable [phone] Gretchen Juan MD Unavailable [phone] Katherine Snow PA-C Unavailable [phone] Per Leahy PA-C Unavailable [phone] Encounter Details Date Type Department Care Team Description 05/26/2019 Filter Press Tender Report Medical Records [address] [place] [address] Gretchen Juan MD [address] [place] [address] [address] [place], [place] [id number] Social History Tobacco Use Types Packs/Day Years [...] on filedocumented in this encounter Care Teams Carton Making Machinist Relationship Specialty Start Date End Date Mily Lawrence MD PCP - General Internal Medicine 03/09/19 Ralf Gastelum MD 300 [facility] [address] [place] [address] Specialist Cardiovascular Disease 06/08/22 Gretchen Juan MD 175 [facility] [address] [place] [address] Surgeon Neurosurgery 02/13/23 Katherine Snow PA-C 175 [facility] 300 [place] [address] Specialist Neurosurgery 02/13/23 Per Leahy PA-C 175 [facility] 300 [place] [address] Specialist Neurosurgery 02/13/23 documented as of this encounter
--- OUTSIDE RECORDS SUMMARY | 2024-12-03 14:05 | XMS_ITS | Encounter Summary ---
Author Organization [facility] Address [address] [place] [address] Care Team Providers Care Advertising Layout Worker Name Role Phone Mily Lawrence MD Primary Care Provider [phone] Ralf Gastelum MD Unavailable [phone] Gretchen Juan MD Unavailable [phone] Katherine Snow PA-C Unavailable [phone] Per Leahy PA-C Unavailable [phone] Encounter Details Date Type Department Care Team Description 09/16/2019 Orders Only Podiatry - [address] [address] Yvonne Medina DPM Posterior tibial tendon tear, [...] Yvonne Medina DPM MRI Performing Organization Address City/State/[facility] Co de Phone Number [address] documented in this encounter Visit Diagnoses Diagnosis Posterior tibial tendon tear, traumatic, right, initial encounter Pain in right foot Pain in limb Acute deep vein thrombosis (DVT) of calf muscle vein of right lower extremity (HCC) documented in this encounter Care Teams Advertising Layout Worker Relationship Specialty Start Date End Date Mily Lawrence MD PCP - General Internal Medicine 03/09/19 Ralf Gastelum MD 300 [facility] [address] [place] [address] Specialist Cardiovascular Disease 06/08/22 Gretchen Juan MD 175 [facility] 300 [place] [address] Surgeon Neurosurgery 02/13/23 Katherine Snow PA-C 175 [facility] [address] [place] [address] Specialist Neurosurgery 02/13/23 Per Leahy PA-C 175 [facility] 300 [place] [address] Specialist Neurosurgery 02/13/23 documented as of this encounter
--- OUTSIDE RECORDS SUMMARY | 2024-12-03 14:05 | XMS_ITS | Clinical Summary ---
Author Organization [facility] Address [address] [place] [address] Phone Care Team Providers Care Cogeneration Operator Name Role Phone Michael Lawrence MD Primary Care Provider [phone] Allergies Active Allergy Reactions Criticality Noted Date Comments Adhesive Tape-Silicones Rash 01/04/2021 Paper tape Sulfa (Sulfonamide Antibiotics) Hives 0405/2015 Sulfate Ion Hives Medium 03/14/2017 Medications multivitamin [...] spinal instrumentation performed by Dr. Hayward at [facility] in [place]. This the surgery, she has been a patient in rehab at [address] [place] [address]. While there, she is participating in physical [...] Team Description 10/06/2024 1:00 PM EST Evaluation [place] [facility] [address] [place] [address] Soha Mckeon M, PT Acute bilateral low back pain without sciatica (Primary Dx); S/P lumbar fusion; Other muscle spasm 10/06/2024 11:30 AM EST Office Visit Orthopedic Surgery [facility] [address] [place] [address] [place] [address] Brian Ferrari MD Post-operative state (Primary Dx); Status post total left knee replacement; Thigh numbness; Gait instability; Weakness of left hip 10/06/2024 Plan of Care Documentation [facility] [address] [place] [address] 09/29/2024 Telephone Orthopedic Surgery [facility] 160 175 [facility] 160 [place] [address] Aida White PA Med Refill 09/25/2024 1:00 PM EST Nutrition Internal Medicine [facility] 175 [facility] 200 [place] [address] Obesity (BMI 30-39.9) (Primary Dx) 09/25/2024 Telephone [facility] 154 300 [facility] 154 [place] [address] Ralf Gastelum MD Appointment 09/24/2024 1:00 PM EST Office Visit Internal Medicine [facility] 175 [facility] 200 [place] [address] Michael Lawrence MD Hearing difficulty of both ears (Primary Dx); Essential hypertension 09/24/2024 11:45 AM EST Office Visit Orthopedic Surgery [facility] 160 175 [facility] 160 [place] [address] Aida White PA Chronic pain of both shoulders (Primary Dx); Nontraumatic incomplete tear of right rotator cuff; Arthritis of right glenohumeral joint; Tendinitis of left rotator cuff 09/18/2024 1:30 PM EST Office Visit Neurosurgery [facility] [address] [place] [address] Nathan Hayward MD S/P lumbar fusion (Primary Dx) 09/16/2024 Telephone Neurosurgery [facility] [address] [place] [address] Nathan Hayward MD Numbness; Hip Pain; Back Pain 09/15/2024 4:03 PM EST - 09/15/2024 11:59 PM EST Hospital Encounter [facility] [address] [place] [address] S/P lumbar fusion Discharge Disposition: Home or Self Care from Last 3 Months Immunizations Name Administration Dates Next Due Hepatitis B (Oocbzrs-F-Sijuh , Recombivax HB-Adult) 19yo and older 10/27/2019,05/26/2019,04/22/2019 [...] 1 INTERSPACE; Surgeon: Nathan Hayward MD; Location: [facility]); Service: Spine; Laterality: N/A; NECK SURGERY 2007 PROCEDURE: HISTORICAL NECK SURGERY; COMMENT: C-spine; arthrodesis HAND SURGERY 1989 Bilateral PROCEDURE: HISTORICAL HAND SURGERY; COMMENT: right tendo repair; left thumb x2; region with pins in place TUBAL LIGATION 2007 PROCEDURE: HISTORICAL TUBAL LIGATION OTHER SURGICAL HISTORY 09/2017 PROCEDURE: GA ARTHRD ANT INTERBODY MIN DSC LUMBAR COLONOSCOPY 2017 PROCEDURE: HISTORICAL COLONOSCOPY TOTAL KNEE ARTHROPLASTY 02/03/2019 Right PROCEDURE: HISTORICAL TOTAL KNEE REPLACE BREAST BIOPSY 10/08/2013 PROCEDURE: GA BX BREAST NEEDLE CORE W/O IMAGING GUIDANCE SPX; COMMENT: in [place],no evidence of malignancy OTHER SURGICAL HISTORY 1997 [...] vein thrombosis (CMS/HCC) D X:Deep vein thrombosis ([facility]);COMMENT:right knee after surgery Sleep apnea 01/30/2018 DX:Sleep [...] replacement; COMMENT: 01/2019 DVT (deep venous thrombosis) ([facility]) 04/01/2019 DX:DVT (deep venous thrombos is) ([facility]); COMMENT: 02/2019 on Xarelto Epigastric pain DX:Epigastric [...] PM EDT Office Visit Internal Medicine - [place] 175 [facility] [address] [place] [address] Michael Lawrence MD 175 [facility] [address] [place] [address] 12/30/2024 3:00 PM EDT Office Visit Orthopedic Surgery - [place] 160 175 [facility] 160 [place] [address] Aida White PA 175 [facility] 160 [place] [address] 02/09/2025 2:30 PM EDT Office Visit [facility] 154 300 [facility] 154 [place] [address] Ralf Gastelum MD 300 [facility] 154 [place] [address] 03/03/2025 3:30 PM EDT Office Visit Orthopedic Surgery [facility] [address] [phone] Brian Ferrari MD [address] [address] 03/04/2025 3:30 PM EDT Office Visit Orthopedic Surgery [facility] [address] [phone] Brian Ferrari MD [address] [address] Health Maintenance Due Date Last Done Comments [...] this topic Medical Devices Implanted Type Area Grades 7 And 8 Teacher Device Identifier Shelf Expiration Date Model / Serial / Lot Putty Vesuvius 100 5ml Stry-K2m [id number] - [id number] Implanted:Qty: 1 on 07/16/2024 by Nathan Hayward MD N/A: Spine Lumbar LAXMI SPINE 02/17/2027 [id number] / [id number] / Bone Graft Spine Infus Xsm Medt-Sofa [id number] Implanted:Qty: 1 on 07/16/2024 by Nathan Hayward MD N/A: Spine Lumbar [employer] SOFAMOR DANEK 11/20/2025 [id number] / / [id number] Orick Interbody System Implanted:Qty: 1 on 07/16/2024 by Nathan Hayward MD N/A: Spine Lumbar LAXMI - MEDICAL 10/30/2028 [id number] / / [id number] 4R Plate [facility] 2h 18mm Stry-K2m [id number] Implanted:Qty: 1 on 07/16/2024 by Nathan Hayward MD N/A: Spine Lumbar LAXMI SPINE [id number] / / 5.0x40mm Screw Implanted:Qty: 2 on 07/16/2024 by Nathan Hayward MD N/A: Spine Lumbar LAXMI - MEDICAL [id number] / / Plate Assembly Screw Implanted:Qty: 1 on 07/16/2024 by Nathan Hayward MD N/A: Spine Lumbar LAXMI - MEDICAL [id number] / / Procedures Procedure Name Priority Date/Time [...] on 09/15/2024 5:01 PM. Workstation Name - [id number] -------- FINAL REPORT -------- Dictated By: Harley Le Dictated Date: 09/15/2024 16:54 ET Assigned Physician: Harley Le Reviewed and Electronically Signed By: Harley Le Signed Date: 09/15/2024 17:01 ET Workstation ID: [id number] Transcribed By: Self Edit Transcribed Date: 09/15/2024 [...] Le on 09/15/2024 5:01PM. Workstation Name - [id number] -------- FINAL REPORT -------- Dictated By: Harley Le Dictated Date: 09/15/2024 16:54 ET Assigned Physician: Harley Le Reviewed and Electronically Signed By: Harley Le Signed Date: 09/15/2024 17:01 ET Workstation ID: [id number] Transcribed By: Self Edit Transcribed Date: 09/15/2024 16:54 ET Chloe Geiger SKIRT TRIMMER IMG XR PROCEDURES Final Resu lt * Depression Screening (05/11/2024) Pathologist [facility] Depression Screening Abstracted Result [facility] Historical Provider HEALTH MAINTENANCE Final Result * Annual BMP Blood Test (02/06/2024) [facility] Annual BMP Blood Test Abstracted Result [facility] Historical Provider HEALTH MAINTENANCE Final Result * (ABNORMAL) Lipid panel (12/09/2023) [facility] LDL/HDL Ratio 5(A) 0 - 4 Triglycerides 143 0 - 150 mg/dL Cholesterol 199 0 - 200 mg/dL HDL 41 >=40 mg/dL LDL Cholesterol 130(A) 0 - 100 mg/dL Blood Venous blood specimen / Unknown Result [facility] Historical Provider LAB BLOOD ORDERABLES Rosa l Result * SANDEEP SCREENING DIGITAL (10/29/2023 4:40 PM EST) Anatomical Region Laterality Modality Mammography 10/29/2023 3:10 PM EST Narrative 10/29/2023 4:[address] [facility] Diagnostic Imaging Department [address] [place] [address] Patient: ??JOSH SUNG ?/Age/Sex: 1965 - 58 - F Unit#: ??[id number] ? Location/Status: ??SPDIMAM/PRE CLI ? Mnemonic/Ordering Site: ??DIGSC/SPMAM Ordering Physician: ??MICHAEL LAWRENCE MD [facility] Screening Digital - 10/29/23 - 1623 Report Status:Signed EXAM: [facility] Screening Digital EXAM DATE AND TIME: 10/29/2023 4:24 PM HISTORY: ??Screening. Previous left breast biopsies, most recently in 2020, pathology benign. Mother had breast carcinoma at age 40. COMPARISON: ??09/27/22, 10/05/20, 09/07/20, 05/11/19 TECHNIQUE: Bilateral digital breast tomosynthesis was performed in the CC and MLO projections. Computer aided detection with [employer] 3D 3.1 was employed. TISSUE DENSITY: a. [...] Procedure Note Ester Chacko MD - 06/08/2024 [facility] Diagnostic Imaging Department [address] [place] [address] Patient: ANA LILIAJOSH./Age/Sex: 1965 - 58 - F Unit#: [id number] Location/Status: SPDIMAM/PRE CLI Mnemonic/Ordering Site: [facility] Ordering Physician: MICHAEL LAWRENCE MD [facility] Screening Digital - 10/29/23 - 1623 Report Status:Signed EXAM: [facility] Screening Digital EXAM DATE AND TIME: 10/29/2023 4:24 PM HISTORY: Screening. Previous left breast biopsies, most recently [id number], pathology benign. Mother had breast carcinoma at age 40. COMPARISON: 09/27/22, 10/05/20, 09/07/20, 05/11/19 TECHNIQUE: Bilateral digital breast tomosynthesis was performed in the CCand MLO projections. Computer aided detection with [employer] 3D 3.1was employed. TISSUE DENSITY: a. The [...] PROCEDURES Final Result * HIV Screening (08/05/2023) [facility] HIV Screening Abstracted Historical Provider HEALTH MAINTENANCE Final Result * Hepatitis C Screening (08/05/2023) [facility] Hepatitis C Screening Abstracted [facility] Provider HEALTH MAINTENANCE Final Result * Cervical Cancer Screening: HPV (07/13/2021) [facility] Cervical Cancer Screening: HPV Negative, abstracted [facility] Provider HEALTH MAINTENANCE Final Result * Colonoscopy (03/24/2018) [facility] Colonoscopy No interpretation , abstracted Comment:External Completion of test per patient (Patient reports normal results) Anatomical Region Laterality Modality Other Historical Provider HEALTH MAINTENANCE Final Result from Last 3 Months or Most Recently Relevant to Health Maintenance Insurance [address] [place] [address] MEDICARE Member Subscriber Plan / Payer (Ef fective 2022-Present) Name:Josh Sung Relation to Subscriber:Self Name:Josh Sung Payer ID:[id number] Group ID:[id number] Type:Not on file Address: [place] [address] [address] [phone] Advance Directives Documents on File Type Date Recorded Patient Human Resources District Manager Expl anation Health Care Decision (hx) 03/05/2024 AD LAM DIRECTIVE Health Care Decision (hx) 03/05/2024 AD LAM DIRECTIVE Health Care Decision (hx) 03/05/2024 AD LAM DIRECTIVE Health Care Decision (hx) 03/05/2024 AD LAM DIRECTIVE Health Care Decision (hx) 02/13/2024 HE ALTH CARE PROXY Care Teams Cogeneration Operator Relationship Specialty Start Date End Date Michael Lawrence MD [address] [phone] PCP - General Internal Medicine 09/24/16
--- OUTSIDE RECORDS SUMMARY | 2024-12-03 14:05 | XMS_ITS | Encounter Summary ---
Author Organization [facility] Address [address] [place] [address] Care Team Providers Care Chicken Raiser Name Role Phone Mily Lawrence MD Primary Care Provider [phone] Trey Mueller MD Primary Care Provider Unavaila ble Mily Lawrence MD Primary Care Provider [phone] Ralf Gastelum MD Unavailable [phone] Gretchen Juan MD Unavailable [phone] Katherine Snow PA-C Unavailable [phone] Per Leahy PA-C Unavailable [phone] Encounter Details Date Type Department Care Team Description 12/23/2018 Orders Only General Surgery [address] [place] [address] Irish Snow NP Abnormal finding on imaging [...] cancer documented in this encounter Care Teams Chicken Raiser Relationship Specialty Start Date End Date Mily Lawrence MD PCP - General Internal Medicine 03/13/17 01/01/19 Trey Mueller MD PCP - General Internal Medicine 01/02/19 03/08/19 Mily Lawrence MD PCP - General Internal Medicine 03/09/19 Ralf Gastelum MD 300 [facility] [address] [place] [address] Specialist Cardiovascular Disease 06/08/22 Gretchen Juan MD 175 [facility] 300 [place] [address] Surgeon Neurosurgery 02/13/23 Katherine Snow PA-C 175 [facility] 300 [place] [address] Specialist Neurosurgery 02/13/23 Per Leahy PA-C 175 [facility] 300 [place] [address] Specialist Neurosurgery 02/13/23 documented as of this encounter
--- OUTSIDE RECORDS SUMMARY | 2024-12-03 14:05 | XMS_ITS | Encounter Summary ---
Author Organization [facility] Address [address] [place] [address] Care Team Providers Care Roof Slater Name Role Phone Mily Lawrence MD Primary Care Provider [phone] Ralf Gastelum MD Unavailable [phone] Gretchen Juan MD Unavailable [phone] Katherine Snow PA-C Unavailable [phone] Per Leahy PA-C Unavailable [phone] Reason for Visit * Reason Onset Date Comments refill request 09/25/2019 Metoprolol Encounter Details Date Type Department Care Team Description 09/25/2019 Telephone Internal Medicine - [address], [address] [place], [place] [phone] Mily Lawrence MD [address] [place] [address] refill request (Metoprolol) Social History Tobacco [...] has f/u scheduled for 10/27/19. Alyce Vázquez sheet heater helper Manager with [facility] @ [address] [place] [address] [id number] documented in this encounter Plan of Treatment Not on file documented as of this encounter Visit Diagnoses Not on filedocumented in this encounter Care Teams Roof Slater Relationship Specialty Start Date End Date Mily Lawrence MD PCP - General Internal Medicine 03/09/19 Ralf Gastelum MD 300 [facility] [address] [place] [address] Specialist Cardiovascular Disease 06/08/22 Gretchen Juan MD 175 [facility] 300 [place] [address] Surgeon Neurosurgery 02/13/23 Katherine Snow PA-C [address] [address] Specialist Neurosurgery 02/13/23 Per Leahy PA-C [address] [address] Specialist Neurosurgery 02/13/23 documented as of this encounter
--- OUTSIDE RECORDS SUMMARY | 2024-12-03 14:05 | XMS_ITS | Encounter Summary ---
Author Organization [facility] Address [address] [place] [address] Care Team Providers Care Showplace Manager Name Role Phone Mily Lawrence MD Primary Care Provider [phone] Trey Mueller MD Primary Care Provider Unavaila ble Mily Lawrence MD Primary Care Provider [phone] Ralf Gastelum MD Unavailable [phone] Gretchen Juan MD Unavailable [phone] Katherine Snow PA-C Unavailable [phone] Per Leahy PA-C Unavailable [phone] Encounter Details Date Type Department Care Team Description 11/19/2018 Tooler Report Medical Records [address] [place] [address] Marci Bernardo PA-C [address] [place] [address] Social History Tobacco Use Types Packs/Day Years [...] on filedocumented in this encounter Care Teams Showplace Manager Relationship Specialty Start Date End Date Mily Lawrence MD PCP - General Internal Medicine 03/13/17 01/01/19 Trey Mueller MD PCP - General Internal Medicine 01/02/19 03/08/19 Mily Lawrence MD PCP - General Internal Medicine 03/09/19 Ralf Gastelum MD 300 [facility] 154 [place] [address] Specialist Cardiovascular Disease 06/08/22 Gretchen Juan MD [address] [address] Surgeon Neurosurgery 02/13/23 Katherine Snow PA-C [address] [address] Specialist Neurosurgery 02/13/23 Per Leahy PA-C [address] [address] Specialist Neurosurgery 02/13/23 documented as of this encounter
--- OUTSIDE RECORDS SUMMARY | 2024-12-03 14:05 | XMS_ITS | Encounter Summary ---
Author Organization [facility] Address [address] [place] [address] Care Team Providers Care Applications Engineering Manager Name Role Phone Mily Lawrence MD Primary Care Provider [phone] Ralf Gastelum MD Unavailable [phone] Gretchen Juan MD Unavailable [phone] Katherine Snow PA-C Unavailable [phone] Per Leahy PA-C Unavailable [phone] Reason for Visit * Reason Onset Date Comments refill request 06/10/2019 Encounter Details Date Type Department Care Team Description 06/10/2019 Refill Internal Medicine - [address], [address] [place] [address] Mily Lawrence MD [address] [place] [address] refill request Social History Tobacco Use [...] N/A Patients current insurance carrier is: Payor: [employer] FFS / Plan: [employer] ALLIANCE / Product Type: MEDICAID RISK documented in this encounter Plan of Treatment Not on file documented as of this encounter Visit Diagnoses Not on filedocumented in this encounter Care Teams Applications Engineering Manager Relationship Specialty Start Date End Date Mily Lawrence MD PCP - General Internal Medicine 03/09/19 Ralf Gastelum MD [address] [place], [place] [address], [place] [address] Specialist Cardiovascular Disease 06/08/22 Gretchen Juan MD 175 [facility] 300 [place] [address] Surgeon Neurosurgery 02/13/23 Katherine Snow PA-C [address] [address] Specialist Neurosurgery 02/13/23 Per Leahy PA-C 175 [facility] 300 [place] [address] Specialist Neurosurgery 02/13/23 documented as of this encounter
--- OUTSIDE RECORDS SUMMARY | 2024-12-03 14:05 | XMS_ITS | Encounter Summary ---
Author Organization [facility] Address [address] [place] [address] Care Team Providers Care Hand Ii Thermal Cutter Name Role Phone Trey Mueller MD Primary Care Provider Unavaila ble Mily Lawrence MD Primary Care Provider [phone] Ralf Gastelum MD Unavailable [phone] Gretchen Juan MD Unavailable [phone] Katherine Snow PA-C Unavailable [phone] Per Leahy PA-C Unavailable [phone] Encounter Details Date Type Department Care Team Description 02/03/2019 Hospital Medical Records [address] [place] [address] Magdi Daniel MD [address] [place] [address] [place] [address] Social History Tobacco Use Types Packs/Day Years [...] on filedocumented in this encounter Care Teams Hand Ii Thermal Cutter Relationship Specialty Start Date End Date Trey Mueller MD PCP - General Internal Medicine 01/02/19 03/08/19 Mily Lawrence MD PCP - General Internal Medicine 03/09/19 Ralf Gastelum MD 300 [facility] 154 [place] [address] Specialist Cardiovascular Disease 06/08/22 Gretchen Juan MD [address] [address] Surgeon Neurosurgery 02/13/23 Katherine Snow PA-C 175 [facility] 300 [place] [address] Specialist Neurosurgery 02/13/23 Per Leahy PA-C [address] [address] Specialist Neurosurgery 02/13/23 documented as of this encounter
--- OUTSIDE RECORDS SUMMARY | 2024-12-03 14:05 | XMS_ITS | Encounter Summary ---
Author Organization [facility] Address [address] [place] [address] Care Team Providers Care Retail Interior Designer Name Role Phone Mily Lawrence MD Primary Care Provider [phone] Ralf Gastelum MD Unavailable [phone] Gretchen Juan MD Unavailable [phone] Katherine Snow PA-C Unavailable [phone] Per Leahy PA-C Unavailable [phone] Reason for Visit * Reason Comments E-prescribe Rx Request Encounter Details Date Type Department Care Team Description 06/15/2019 [facility] Internal Medicine [address], [address] [place] [address] Mily Lawrence MD [address] [place] [address] E-prescribe Rx Request Social History Tobacco [...] Miscellaneous Notes * Telephone Encounter - Marci Kong - 06/15/2019 1:51 PM EDT Patient would like script to be: E-PRESCRIBED/FAXED TO PHARMACY WHEN WAS THE PATIENT'S LAST APPOINTMENT IN ADULT MEDICINE? 05.26.2019 WHEN WAS THE LAST TIME THE PATIENT SAW THEIR PCP? Same as above Does patient have an upcoming appointment? Yes 07.23.2019 (THE MEDICATION REQUESTED IS ON THE MED [...] N/A Patients current insurance carrier is: Payor: [employer] FFS / Plan: [employer] ALLIANCE / Product Type: MEDICAID RISK documented in this encounter Plan of Treatment Not on file documented as of this encounter Visit Diagnoses Not on filedocumented in this encounter Care Teams Retail Interior Designer Relationship Specialty Start Date End Date Mily Lawrence MD PCP - General Internal Medicine 03/09/19 Ralf Gastelum MD [address] [place] [address] Specialist Cardiovascular Disease 06/08/22 Gretchen Juan MD 175 [facility] [address] [place] [address] Surgeon Neurosurgery 02/13/23 Katherine Snow PA-C 175 [facility] 300 [place] [address] Specialist Neurosurgery 02/13/23 Per Leahy PA-C 175 [facility] [address] [place] [address] Specialist Neurosurgery 02/13/23 documented as of this encounter
--- OUTSIDE RECORDS SUMMARY | 2024-12-03 14:05 | XMS_ITS | Encounter Summary ---
Author Organization [facility] Address [address] [place] [address] Care Team Providers Care Slate Worker Name Role Phone Mily Lawrence MD Primary Care Provider [phone] Ralf Gastelum MD Unavailable [phone] Gretchen Snider MD Unavailable [phone] Katherine Snow PA-C Unavailable [phone] Per Leahy PA-C Unavailable [phone] Reason for Visit * Reason Onset Date Comments Provider Call Back 06/09/2019 Encounter Details Date Type Department Care Team Description 06/09/2019 Telephone Internal Medicine - [address], [address] [place], [place] [phone] Mily Lawrence MD [address] [place] [phone] Provider Call Back Social History Tobacco [...] see Dr. Tavarez [facility] [place] to get injection but it was not [...] filedocumented in this encounter Care Teams Slate Worker Relationship Specialty Start Date End Date Mily Lawrence MD PCP - General Internal Medicine 03/09/19 Ralf Gastelum MD 300 [facility] 154 [place] [address] Specialist Cardiovascular Disease 06/08/22 Gretchen Snider MD [address] [address] Surgeon Neurosurgery 02/13/23 Katherine Snow PA-C [address] [address] Specialist Neurosurgery 02/13/23 Per Leahy PA-C [address] [address] Specialist Neurosurgery 02/13/23 documented as of this encounter
--- OUTSIDE RECORDS SUMMARY | 2024-12-03 14:05 | XMS_ITS | Encounter Summary ---
Author Organization [facility] Address [address] [place] [address] Care Team Providers Care Supervisor Logging Name Role Phone Trey Mueller MD Primary Care Provider Unavaila ble Mily Lawrence MD Primary Care Provider +[phone]- [phone] Ralf Gastelum MD Unavailable [phone] Gretchen Juan MD Unavailable [phone] Katherine Snow PA-C Unavailable [phone] Per Leahy PA-C Unavailable [phone] Encounter Details Date Type Department Care Team Description 02/01/2019 Semiconductor Manufacturing Technician Report Medical Records [address] [place] [address] Evelio Smith Social History Tobacco Use Types [...] filedocumented in this encounter Care Teams Supervisor Logging Relationship Specialty Start Date End Date Trey Mueller MD PCP - General Internal Medicine 01/02/19 03/08/19 Mily Lawrence MD PCP - General Internal Medicine 03/09/19 Ralf Gastelum MD 300 [facility] [address] [place] [address] Specialist Cardiovascular Disease 06/08/22 Gretchen Juan MD 175 [facility] 300 [place] [address] Surgeon Neurosurgery 02/13/23 Katherine Snow PA-C 175 [facility] 300 [place] [address] Specialist Neurosurgery 02/13/23 Per Leahy PA-C 175 [facility] 300 [place] [address] Specialist Neurosurgery 02/13/23 documented as of this encounter
--- OUTSIDE RECORDS SUMMARY | 2024-12-03 14:05 | XMS_ITS | Encounter Summary ---
Author Organization [facility] Address [address] [place] [address] Care Team Providers Care Ax Survey Worker Name Role Phone Mily Lawrence MD Primary Care Provider [phone] Trey Mueller MD Primary Care Provider Unavaila ble Mily Lawrence MD Primary Care Provider [phone] Ralf Gastelum MD Unavailable [phone] Gretchen Juan MD Unavailable [phone] Katherine Snow PA-C Unavailable [phone] Per Leahy PA-C Unavailable [phone] Encounter Details Date Type Department Care Team Description 12/03/2018 Cloth Bin Packer Report Medical Records [address] [place] [address] Magdi Daniel MD [address] [place] [address] [address] [place] [address] Social History Tobacco Use Types Packs/Day Years [...] on filedocumented in this encounter Care Teams Ax Survey Worker Relationship Specialty Start Date End Date Mily Lawrence MD PCP - General Internal Medicine 03/13/17 01/01/19 Trey Mueller MD PCP - General Internal Medicine 01/02/19 03/08/19 Mily Lawrence MD PCP - General Internal Medicine 03/09/19 Ralf Gastelum MD 300 [facility] [address] [place] [address] Specialist Cardiovascular Disease 06/08/22 Gretchen Juan MD 175 [facility] 300 [place] [address] Surgeon Neurosurgery 02/13/23 Katherine Snow PA-C 175 [facility] [address] [place] [address] Specialist Neurosurgery 02/13/23 Per Leahy PA-C 175 [facility] 300 [place] [address] Specialist Neurosurgery 02/13/23 documented as of this encounter
--- OUTSIDE RECORDS SUMMARY | 2024-12-03 14:05 | XMS_ITS | Encounter Summary ---
Author Organization [facility] Address [address] [place] [address] Care Team Providers Care Blow Down Operator Name Role Phone Mily Lawrence MD Primary Care Provider [phone] Trey Mueller MD Primary Care Provider Unavaila ble Mily Lawrence MD Primary Care Provider [phone] Ralf Gastelum MD Unavailable [phone] Gretchen Juan MD Unavailable [phone] Katherine Snow PA-C Unavailable [phone] Per Leahy PA-C Unavailable [phone] Encounter Details Date Type Department Care Team Description 11/24/2018 Release of Information Medical Records [address] [place] [address] Abstract, Provider Social History Tobacco Use Types [...] on filedocumented in this encounter Care Teams Blow Down Operator Relationship Specialty Start Date End Date Mily Lawrence MD PCP - General Internal Medicine 03/13/17 01/01/19 Trey Mueller MD PCP - General Internal Medicine 01/02/19 03/08/19 Mily Lawrence MD PCP - General Internal Medicine 03/09/19 Ralf Gastelum MD 300 [facility] 154 [place] [address] Specialist Cardiovascular Disease 06/08/22 Gretchen Juan MD [address] [address] Surgeon Neurosurgery 02/13/23 Katherine Snow PA-C [address] [address] Specialist Neurosurgery 02/13/23 Per Leahy PA-C [address] [address] Specialist Neurosurgery 02/13/23 documented as of this encounter
--- OUTSIDE RECORDS SUMMARY | 2024-12-03 14:05 | XMS_ITS | Encounter Summary ---
Author Organization [facility] Address [address] [place] [address] Care Team Providers Care Production Cell Leader Name Role Phone Mily Lawrence MD Primary Care Provider [phone] Trey Mueller MD Primary Care Provider Unavaila ble Mily Lawrence MD Primary Care Provider [phone] Ralf Gastelum MD Unavailable [phone] Grecthen Juan MD Unavailable [phone] Katherine Snow PA-C Unavailable [phone] Per Leahy PA-C Unavailable [phone] Encounter Details Date Type Department Care Team Description 10/24/2018 Barn Hand Report Medical Records [address] [place] [address] Per Leahy PA-C 175 [facility] 300 [place] [address] Social History Tobacco Use Types Packs/Day Years [...] on filedocumented in this encounter Care Teams Production Cell Leader Relationship Specialty Start Date End Date Mily Lawrence MD PCP - General Internal Medicine 03/13/17 01/01/19 Trey Mueller MD PCP - General Internal Medicine 01/02/19 03/08/19 Mily Lawrence MD PCP - General Internal Medicine 03/09/19 Ralf Gastelum MD 300 [facility] [address] [place] [address] Specialist Cardiovascular Disease 06/08/22 Gretchen Juan MD [address] [address] Surgeon Neurosurgery 02/13/23 Katherine Snow PA-C 175 [facility] 300 [place] [address] Specialist Neurosurgery 02/13/23 Per Leahy PA-C 175 [facility] 300 [place] [address] Specialist Neurosurgery 02/13/23 documented as of this encounter
--- OUTSIDE RECORDS SUMMARY | 2024-12-03 14:05 | XMS_ITS | Encounter Summary ---
Author Organization [facility] Address [address] [place] [address] Care Team Providers Care Seat Cover Cutter Name Role Phone Mily Lawrence MD Primary Care Provider +[phone] Ralf Gastelum MD Unavailable [phone] Gretchen Juan MD Unavailable [phone] Katherine Snow PA-C Unavailable [phone] Per Leahy PA-C Unavailable [phone] Encounter Details Date Type Department Care Team Description 11/13/2019 SCAN Medical Records [address] [place] [address] Eran Alfaro MD Social History Tobacco Use Types Packs/Day [...] Associated Diagnosis Comments OUTSIDE VASCULAR STUDY Routine 11/13/2019 documented in this encounter Results * OUTSIDE VASCULAR STUDY (11/13/2019) Provider Default CARDIOLOGY documented in this encounter Visit Diagnoses Not on filedocumented in this encounter Care Teams Seat Cover Cutter Relationship Specialty Start Date End Date Mily Lawrence MD PCP - General Internal Medicine 03/09/19 Ralf Gastelum MD 300 [facility] [address] [place] [address] Specialist Cardiovascular Disease 06/08/22 Gretchen Juan MD 175 [facility] 300 [place] [address] Surgeon Neurosurgery 02/13/23 Katherine Snow PA-C 175 [facility] 300 [place] [address] Specialist Neurosurgery 02/13/23 Per Leahy PA-C 175 [facility] 300 [place] [address] Specialist Neurosurgery 02/13/23 documented as of this encounter
--- OUTSIDE RECORDS SUMMARY | 2024-12-03 14:05 | XMS_ITS | Encounter Summary ---
Author Organization [facility] Address [address] [place] [address] Care Team Providers Care As400 Administrator Name Role Phone Mily Lawrence MD Primary Care Provider [phone]- [phone] Ralf Gastelum MD Unavailable [phone] Gretchen Juan MD Unavailable [phone] Katherine Snow PA-C Unavailable [phone] Per Leahy PA-C Unavailable [phone] Reason for Visit * Reason Onset Date Comments TEST RESULTS 10/08/2019 Encounter Details Date Type Department Care Team Description 10/08/2019 Telephone Podiatry - [address] [id number] Yvonne Medina DPM TEST RESULTS Social History Tobacco Use Types Packs/Day Years [...] encounter Miscellaneous Notes * Telephone Encounter - Yvonne Medina DPM - 10/09/2019 10:03 AM EST RX for new walking boot signed and in my out basket * Telephone Encounter - Skye Rich M.A. - 10/09/2019 9:22 AM EST Pt needs the rx for the boot because [facility] does not take her insurance. * Telephone Encounter - Yvonne Medina DPM - 10/09/2019 9:03 AM EST No, the MRI of the foot showed us everything that was needed. She does not need to get the MRI of the ankle. * Telephone Encounter - Skye Rich M.A. - 10/09/2019 8:49 AM EST Pt received call from [facility] stating there is an order for her ankle. She wants to know if she needsto have that done? * Telephone Encounter - Yvonne Medina DPM - 10/09/2019 6:49 AM EST Please see message from 09/15- Called patient and reviewed her MRI results. Posterior tibial tendontear- a small tear. RX for walking boot printed and faxed to [facility]. Please make a follow up appointment in 4-6 weeks for the patient. * Telephone Encounter - Ai Anand - 10/08/2019 2:07 PM EST Inform patient: ANY URGENT OR ABNORMAL RESULTS WIILL RESULT IN A CALL BACK TO THE PATIENT EMANUEL. Type of test: :MRI Date test was performed: 09/30/19 Where was the test performed: [facility] Who ordered this test?: Dr. Yvonne Medina Is the doctor here today?: YES Can the message wait until the doctor returns?: NO IF PATIENT'S PCP IS NOT IN INSTRUCT PATIENT THAT THEY WILL RECEIVE A CALL BACK WHEN THE PCP IS IN THE OFFICE NEXT. documented in this encounter Plan of Treatment Not on file documented as of this encounter Procedures Procedure Name Priority Date/Time Associated Diagnosis Comments DME FRACTURE WALKER BOOT Routine 10/09/2019 10:03 AM EST Tibialis posterior tendon tear, nontraumatic, right Pain in right foot documented in this encounter Visit Diagnoses Diagnosis Tibialis posterior tendon tear, nontraumatic, right- Primary Pain in right foot Pain in limb documented in this encounter Care Teams As400 Administrator Relationship Specialty Start Date End Date Mily Lawrence MD PCP - General Internal Medicine 03/09/19 Ralf Gastelum MD 300 [facility] [place] [facility] 154 [place] [address] Specialist Cardiovascular Disease 06/08/22 Gretchen Juan MD [address] [address] Surgeon Neurosurgery 02/13/23 Katherine Snow PA-C [address] [address] Specialist Neurosurgery 02/13/23 Per Leahy PA-C [address] [address] Specialist Neurosurgery 02/13/23 documented as of this encounter
--- OUTSIDE RECORDS SUMMARY | 2024-12-03 14:05 | XMS_ITS | Encounter Summary ---
Author Organization [facility] Address [address] [place] [address] Care Team Providers Care Senior Logistics Manager Name Role Phone Mily Lawrence MD Primary Care Provider [phone] Ralf Gastelum MD Unavailable [phone] Gretchen Juan MD Unavailable [phone] Katherine Snow PA-C Unavailable [phone] Per Leahy PA-C Unavailable [phone] Encounter Details Date Type Department Care Team Description 03/18/2020 Manager Contract Report Medical Records [address] [place] [address] Maye Hamilton MD [address] [place] [address] Social History Tobacco Use Types Packs/Day Years [...] on filedocumented in this encounter Care Teams Senior Logistics Manager Relationship Specialty Start Date End Date Mily Lawrence MD PCP - General Internal Medicine 03/09/19 Ralf Gastelum MD 300 [facility] [address] [place] [address] Specialist Cardiovascular Disease 06/08/22 Gretchen Juan MD 175 [facility] 300 [place] [address] Surgeon Neurosurgery 02/13/23 Katherine Snow PA-C 175 [facility] 300 [place] [address] Specialist Neurosurgery 02/13/23 Per Leahy PA-C 175 [facility] 300 [place] [address] Specialist Neurosurgery 02/13/23 documented as of this encounter
--- OUTSIDE RECORDS SUMMARY | 2024-12-03 14:05 | XMS_ITS | Continuity of Care Document ---
Author Organization [facility] Address [address] [place] [address] Phone Care Team Providers Care Certified First Assistant Name Role Phone Ryan Duran MD Unavailable Unavailable Procedures Procedure Date [employer] Sales tax [employer] Advance Directives Directive Yes / No Effective Date File Name No Information Encounters Encounter Description Practice Location Reason(s) For Visit Diagnoses Date Provider Providers Copied on Encounter [facility]ermatology [facility], [address] [place] [address], [address] [place] [address], tel:[phone] [facility] No Information Renee Davis. [address] [place] [address], [address] [place] [address] , . tel: [phone] [facility]ermatology [facility], [address] [place] [address], [id number], tel:[phone] [facility] Location No Information Renee Davis. [address] [place] [address], [id number] , . tel: [phone] [facility]atology [facility], [address] [place] [address], [address] [place] [address], tel:[phone] [facility] No Information Renee Davis. [address] [place] [address], [place], [place], [id number] , . tel: [phone] Family History Family Member Type Diagnosis Age [...]
--- OUTSIDE RECORDS SUMMARY | 2024-12-03 14:05 | XMS_ITS | Encounter Summary ---
Author Organization [facility] Address [address] [place] [address] Care Team Providers Care Regulatory Compliance Officer Name Role Phone Mily Lawrence MD Primary Care Provider [phone] Ralf Gastelum MD Unavailable [phone] Gretchen Juan MD Unavailable [phone] Katherine Snow PA-C Unavailable [phone] Per Leahy PA-C Unavailable [phone] Encounter Details Date Type Department Care Team Description 01/24/2023 Ingot Buggy Operator Report Medical Records [address] [place] [address] Evelio Smith Social History Tobacco Use Types [...] on filedocumented in this encounter Care Teams Regulatory Compliance Officer Relationship Specialty Start Date End Date Mily Lawrence MD PCP - General Internal Medicine 03/09/19 Ralf Gastelum MD 300 [facility] [address] [place] [address] Specialist Cardiovascular Disease 06/08/22 Gretchen Juan MD 175 [facility] 300 [place] [address] Surgeon Neurosurgery 02/13/23 Katherine Snow PA-C 175 [facility] 300 [place] [address] Specialist Neurosurgery 02/13/23 Per Leahy PA-C 175 [facility] 300 [place] [address] Specialist Neurosurgery 02/13/23 documented as of this encounter
--- OUTSIDE RECORDS SUMMARY | 2024-12-03 14:05 | XMS_ITS | Encounter Summary ---
Author Organization [facility] Address [address] [place] [address] Care Team Providers Care Field Services Analyst Name Role Phone Mily Lawrence MD Primary Care Provider [phone] Ralf Gastelum MD Unavailable [phone] Gretchen Juan MD Unavailable [phone] Katherine Snow PA-C Unavailable [phone] Per Leahy PA-C Unavailable [phone] Reason for Visit * Reason Comments E-prescribe Rx Request Encounter Details Date Type Department Care Team Description 10/05/2021 Refill Internal Medicine - [address], [address] [place] [address] Mily Lawrence MD [address] [place] [phone] E-prescribe Rx Request Social History Tobacco [...] on filedocumented in this encounter Care Teams Field Services Analyst Relationship Specialty Start Date End Date Mily Lawrence MD PCP - General Internal Medicine 03/09/19 Ralf Gastelum MD 300 [facility] [address] [place] [address] Specialist Cardiovascular Disease 06/08/22 Gretchen Juan MD 175 [facility] 300 [place] [address] Surgeon Neurosurgery 02/13/23 Katherine Snow PA-C [address] [address] Specialist Neurosurgery 02/13/23 Per Leahy PA-C [address] [address] Specialist Neurosurgery 02/13/23 documented as of this encounter
--- OUTSIDE RECORDS SUMMARY | 2024-12-03 14:05 | XMS_ITS | Encounter Summary ---
Author Organization [facility] Address [address] [place] [address] Care Team Providers Care Home Health Cna Name Role Phone Mily Lawrence MD Primary Care Provider [phone] Rlaf Gastelum MD Unavailable [phone] Gretchen Juan MD Unavailable [phone] Katherine Snow PA-C Unavailable [phone] Per Leahy PA-C Unavailable [phone] Encounter Details Date Type Department Care Team Description 08/18/2019 Informatics Analyst Report Medical Records [address] [place] [address] Gretchen Juan MD [address] [place] [address] [address] [place], [place] [id number] Social History Tobacco Use Types Packs/Day Years [...] filedocumented in this encounter Care Teams Home Health Cna Relationship Specialty Start Date End Date Mily Lawrence MD PCP - General Internal Medicine 03/09/19 Ralf Gastelum MD 300 [facility] [address] [place] [address] Specialist Cardiovascular Disease 06/08/22 Gretchen Juan MD 175 [facility] 300 [place] [address] Surgeon Neurosurgery 02/13/23 Katherine Snow PA-C 175 [facility] 300 [place] [address] Specialist Neurosurgery 02/13/23 Per Leahy PA-C 175 [facility] 300 [place] [address] Specialist Neurosurgery 02/13/23 documented as of this encounter
--- OUTSIDE RECORDS SUMMARY | 2024-12-03 14:05 | XMS_ITS | Encounter Summary ---
Author Organization [facility] Address [address] [place] [address] Care Team Providers Care Clinical Specialty Rep Name Role Phone Mily Lawrence MD Primary Care Provider [phone] Ralf Gastelum MD Unavailable [phone] Gretchen Juan MD Unavailable [phone] Katherine Snow PA-C Unavailable [phone] Per Leahy PA-C Unavailable [phone] Encounter Details Date Type Department Care Team Description 08/06/2019 Release of Information Medical Records [address] [place] [address] Abstract, Provider Social History Tobacco Use Types [...] on filedocumented in this encounter Care Teams Clinical Specialty Rep Relationship Specialty Start Date End Date Mily Lawrence MD PCP - General Internal Medicine 03/09/19 Ralf Gastelum MD 300 [facility] [address] [place] [address] Specialist Cardiovascular Disease 06/08/22 Gretchen Juan MD 175 [facility] 300 [place] [address] Surgeon Neurosurgery 02/13/23 Katherine Snow PA-C 175 [facility] 300 [place] [address] Specialist Neurosurgery 02/13/23 Per Leahy PA-C 175 [facility] 300 [place] [address] Specialist Neurosurgery 02/13/23 documented as of this encounter
--- OUTSIDE RECORDS SUMMARY | 2024-12-03 14:05 | XMS_ITS | Encounter Summary ---
Author Organization [facility] Address [address] [place] [address] Care Team Providers Care Golf Club Head Inspector And Adjuster Name Role Phone Mily Lawrence MD Primary Care Provider [phone] Ralf Gastelum MD Unavailable [phone] Gretchen Juan MD Unavailable [phone] Katherine Snow PA-C Unavailable [phone] Per Leahy PA-C Unavailable [phone] Encounter Details Date Type Department Care Team Description 09/22/2019 Manager Star Report Medical Records [address] [place] [address] Camilla Lopez MD Social History Tobacco Use [...] on filedocumented in this encounter Care Teams Golf Club Head Inspector And Adjuster Relationship Specialty Start Date End Date Mily Lawrence MD PCP - General Internal Medicine 03/09/19 Ralf Gastelum MD 300 [facility] [address] [place] [address] Specialist Cardiovascular Disease 06/08/22 Gretchen Juan MD 175 [facility] 300 [place] [address] Surgeon Neurosurgery 02/13/23 Katherine Snow PA-C 175 [facility] [address] [place] [address] Specialist Neurosurgery 02/13/23 Per Leahy PA-C 175 [facility] 300 [place] [address] Specialist Neurosurgery 02/13/23 documented as of this encounter
--- OUTSIDE RECORDS SUMMARY | 2024-12-03 14:05 | XMS_ITS | Encounter Summary ---
Author Organization [facility] Address [address] [place] [address] Care Team Providers Care Manufacturing Plant Controller Name Role Phone Trey Mueller MD Primary Care Provider Unavaila ble Mily Lawrence MD Primary Care Provider [phone] Ralf Gastelum MD Unavailable [phone] Gretchen Juan MD Unavailable [phone] Katherine Snow PA-C Unavailable [phone] Per Leahy PA-C Unavailable [phone] Encounter Details Date Type Department Care Team Description 01/26/2019 Client Portfolio Manager Report Medical Records [address] [place] [address] Magdi Daniel MD [address] [place] [address] [place] [address] Social History Tobacco Use Types Packs/Day Years [...] on filedocumented in this encounter Care Teams Manufacturing Plant Controller Relationship Specialty Start Date End Date Trey Mueller MD PCP - General Internal Medicine 01/02/19 03/08/19 Mily Lawrence MD PCP - General Internal Medicine 03/09/19 Ralf Gastelum MD 300 [facility] [address] [place] [address] Specialist Cardiovascular Disease 06/08/22 Gretchen Juan MD 175 [facility] 300 [place] [address] Surgeon Neurosurgery 02/13/23 Katherine Snow PA-C 175 [facility] 300 [place] [address] Specialist Neurosurgery 02/13/23 Per Leahy PA-C 175 [facility] 300 [place] [address] Specialist Neurosurgery 02/13/23 documented as of this encounter
--- OUTSIDE RECORDS SUMMARY | 2024-12-03 14:06 | XMS_ITS | Encounter Summary ---
Author Organization [facility] Address [address] [place] [address] Care Team Providers Care Sql Dba Name Role Phone Mily Lawrence MD Primary Care Provider +[phone] Ralf Gastelum MD Unavailable [phone] Gretchen Juan MD Unavailable [phone] Katherine Snow PA-C Unavailable [phone] Per Leahy PA-C Unavailable [phone] Encounter Details Date Type Department Care Team Description 06/07/2020 Inventory Manager Report Medical Records [address] [place] [address] Camilla Lopez MD Social History Tobacco Use [...] on filedocumented in this encounter Care Teams Sql Dba Relationship Specialty Start Date End Date Mily Lawrence MD PCP - General Internal Medicine 03/09/19 Ralf Gastelum MD 300 [facility] [address] [place] [address] Specialist Cardiovascular Disease 06/08/22 Gretchen Juan MD 175 [facility] 300 [place] [address] Surgeon Neurosurgery 02/13/23 Katherine Snow PA-C 175 [facility] 300 [place] [address] Specialist Neurosurgery 02/13/23 Per Leahy PA-C 175 [facility] 300 [place] [address] Specialist Neurosurgery 02/13/23 documented as of this encounter
--- OUTSIDE RECORDS SUMMARY | 2024-12-03 14:06 | XMS_ITS | Encounter Summary ---
Author Organization [facility] Address [address] [place] [address] Care Team Providers Care Profiling Machine Set Up Operator Tool Name Role Phone Trey Mueller MD Primary Care Provider Unavaila ble Mily Lawrence MD Primary Care Provider +1- [phone] Ralf Gastelum MD Unavailable [phone] Gretchen Juan MD Unavailable [phone] Katherine Snow PA-C Unavailable [phone] Per Leahy PA-C Unavailable [phone] Encounter Details Date Type Department Care Team Description 03/06/2019 Infant Nanny Report Medical Records [address] [place] [address] Magdi Daniel MD [address] [place] [address] [place] [address] Social History Tobacco Use Types Packs/Day Years [...] on filedocumented in this encounter Care Teams Profiling Machine Set Up Operator Tool Relationship Specialty Start Date End Date Trey Mueller MD PCP - General Internal Medicine 01/02/19 03/08/19 Mily Lawrence MD PCP - General Internal Medicine 03/09/19 Ralf Gastelum MD 300 [facility] 154 [place] [address] Specialist Cardiovascular Disease 06/08/22 Gretchen Juan MD 175 [facility] 300 [place] [address] Surgeon Neurosurgery 02/13/23 Katherine Snow PA-C 175 [facility] 300 [place] [address] Specialist Neurosurgery 02/13/23 Per Leahy PA-C 175 [facility] 300 [place] [address] Specialist Neurosurgery 02/13/23 documented as of this encounter
--- OUTSIDE RECORDS SUMMARY | 2024-12-03 14:06 | XMS_ITS | Encounter Summary ---
Author Organization [facility] Address [address] [place] [address] Care Team Providers Care Facilities Technician Name Role Phone Mily Lawrence MD Primary Care Provider [phone] Trey Mueller MD Primary Care Provider Unavaila ble Mily Lawrence MD Primary Care Provider +1- [phone] Mily Lawrence MD Primary Care Provider +[phone] Ralf Gastelum MD Unavailable [phone] Gretchen Juan MD Unavailable [phone] Katherine Snow PA-C Unavailable [phone] Per Leahy PA-C Unavailable [phone] Encounter Details Date Type Department Care Team Description 10/19/2016 SCAN Medical Records [address] [place] [address] Abstract, Provider Social History Tobacco Use Types [...] on filedocumented in this encounter Care Teams Facilities Technician Relationship Specialty Start Date End Date Mily Lawrence MD PCP - General Internal Medicine 03/13/17 01/01/19 Trey Mueller MD PCP - General Internal Medicine 01/02/19 03/08/19 Mily Lawrence MD PCP - General Internal Medicine 03/09/19 Mily Lawrence MD PCP - General 09/24/16 03/12/17 Ralf Gastelum MD 300 [facility] [address] [place] [address] Specialist Cardiovascular Disease 06/08/22 Gretchen Juan MD [address] [address] Surgeon Neurosurgery 02/13/23 Katherine Snow PA-C 175 [facility] 300 [place] [address] Specialist Neurosurgery 02/13/23 Per Leahy PA-C 175 [facility] 300 [place] [address] Specialist Neurosurgery 02/13/23 documented as of this encounter
--- OUTSIDE RECORDS SUMMARY | 2024-12-03 14:06 | XMS_ITS | Encounter Summary ---
Author Organization [facility] Address [address] [place] [address] Care Team Providers Care Rock Duster Name Role Phone Mily Lawrence MD Primary Care Provider +1- [phone] Ralf Gastelum MD Unavailable [phone] Gretchen Juan MD Unavailable [phone] Katherine Snow PA-C Unavailable [phone] Per Leahy PA-C Unavailable [phone] Reason for Visit * Reason Onset Date Comments Mychart Rx Refill 05/12/2024 Encounter Details Date Type Department Care Team Description 05/12/2024 Refill Internal Medicine - [address], [address] [place] [address] Mily Lawrence MD [address] [place] [phone] Mychart Rx Refill Social History Tobacco Use [...] PM EDTFrom: Ange Montesinos To: [facility] Sent: 05/12/2024 2:15 PM EDT Subject: Medication Renewal Request Refills have been requested for the following medications: Other - [facility] 100,000 UNITS Per Gram for under breasts and belly/INTERTRIGO Preferred pharmacy: [id number] documented in this encounter Plan of Treatment Not on file documented as of this encounter Visit Diagnoses Not on filedocumented in this encounter Care Teams Rock Duster Relationship Specialty Start Date End Date Mily Lawrence MD PCP - General Internal Medicine 03/09/19 Ralf Gastelum MD [address] [facility] [address] [place] [address] Specialist Cardiovascular Disease 06/08/22 Gretchen Juan MD 175 [facility] 300 [place] [address] Surgeon Neurosurgery 02/13/23 Katherine Snow PA-C 175 [facility] 300 [place] [address] Specialist Neurosurgery 02/13/23 Per Leahy PA-C 175 [facility] 300 [place] [address] Specialist Neurosurgery 02/13/23 documented as of this encounter
--- OUTSIDE RECORDS SUMMARY | 2024-12-03 14:06 | XMS_ITS | Encounter Summary ---
Author Organization [facility] Address [address] [place] [address] Care Team Providers Care Skirt Clipper Name Role Phone Mily Lawrence MD Primary Care Provider [phone] Reason for Visit * Reason Onset Date Comments Med Refill 09/29/2024 Encounter Details Date Type Department Care Team (Late st Contact Info) Description 09/29/2024 Telephone Orthopedic Surgery - [place] [address] [facility] [address] [place] [phone] Aida White PA 175 [facility] [address] [place] [address] Med Refill Social History Tobacco Use Types [...] PM EDT Office Visit Internal Medicine - [place] [address] [facility] [address] [place] [phone] Mily Lawrence MD [address] [facility] [address] [place] [address] 12/30/2024 3:00 PM EDT Office Visit [facility] [address] [facility] [address] [place] [address] Aida White PA [address] [facility] [address] [facility] 160 [place] [address] 02/09/2025 2:30 PM EDT Office Visit [facility] [address] [place] [phone] Ralf Gastelum MD [address] [place] [address] 03/03/2025 3:30 PM EDT Office Visit Orthopedic Surgery [facility] [address] [facility] [address] [place] [address] Brian Ferrari MD [address] [facility] [address] [place] [address] 03/04/2025 3:30 PM EDT Office Visit Orthopedic [facility] [address] [facility] [address] [place] [phone] Brian Ferrari MD [address] [facility] [address] [place] [address] documented as of this encounter Visit Diagnoses Not on filedocumented in this encounter Care Teams Skirt Clipper Relationship Specialty Start Date End Date Mily Lawrence MD [address] [place] [phone] PCP - General Internal Medicine 09/24/16 documented as of this encounter
--- OUTSIDE RECORDS SUMMARY | 2024-12-03 14:06 | XMS_ITS | Encounter Summary ---
Author Organization [facility] Address [address] [place] [address] Care Team Providers Care Ict Analyst Name Role Phone Mily Lawrence MD Primary Care Provider [phone] Ralf Gastelum MD Unavailable [phone] Gretchen Juan MD Unavailable [phone] Katherine Snow PA-C Unavailable [phone] Per Leahy PA-C Unavailable [phone] Reason for Visit * Reason Comments E-prescribe Rx Request Encounter Details Date Type Department Care Team Description [facility] - [address], [address] [place] [address] Mily Lawrence MD [address] [place] [address] E-prescribe Rx Request Social History Tobacco [...] on filedocumented in this encounter Care Teams Ict Analyst Relationship Specialty Start Date End Date Mily Lawrence MD PCP - General Internal Medicine 03/09/19 Ralf Gastelum MD 300 [facility] [address] [place] [address] Specialist Cardiovascular Disease 06/08/22 Gretchen Juan MD 175 [facility] 300 [place] [address] Surgeon Neurosurgery 02/13/23 Katherine Snow PA-C [address] [address] Specialist Neurosurgery 02/13/23 Per Leahy PA-C [address] [address] Specialist Neurosurgery 02/13/23 documented as of this encounter
--- OUTSIDE RECORDS SUMMARY | 2024-12-03 14:06 | XMS_ITS | Encounter Summary ---
Author Organization [facility] Address [address] [place] [address] Care Team Providers Care Game Manager Name Role Phone Trey Mueller MD Primary Care Provider Unavaila Mily Mayen MD Primary Care Provider [phone]- [phone] Ralf Gastelum MD Unavailable [phone] Gretchen Juan MD Unavailable [phone] Katherine Snow PA-C Unavailable [phone] Per Leahy PA-C Unavailable [phone] Reason for Visit * Reason Onset Date Comments DME Request 02/16/2019 Encounter Details Date Type Department Care Team Description 02/16/2019 Telephone Internal Medicine - [address], [address] [place] [address] Trey Mueller MD DME Request Social History Tobacco Use Types [...] encounter Miscellaneous Notes * Telephone Encounter - Ruthann Zhou M.A. - 02/17/2019 1:26 PM EDT Incontinence pads ordered and will be faxed to [facility], please inform patient, thank you * Telephone Encounter - Alyce Vázquez R.N. - 02/16/2019 2:40 PM EDT Patient states Dr Lawrence is her pcp. She has a hospital f/u appt scheduled for 02/19/19 in [place] d/t no [facility]. D/T Total knee surgery surgery patient is having issues with urinary incontinence. She is concernedabout falling trying to barnes to the bathroom. Would you consider writing a rx for urinary incontinence pads? Thank you Alyce Vázquez mechanical intern Manager with [facility] [employer] @ [facility] [id number] documented in this encounter Plan of Treatment Not on file documented as of this encounter Visit Diagnoses Diagnosis Mixed stress and urge urinary incontinence- Primary Mixed incontinence urge and stress (male)(female) documented in this encounter Care Teams Game Manager Relationship Specialty Start Date End Date Trey Mueller MD PCP - General Internal Medicine 01/02/19 03/08/19 Mily Lawrence MD PCP - General Internal Medicine 03/09/19 Ralf Gastelum MD [address] [place] [address] Specialist Cardiovascular Disease 06/08/22 Gretchen Juan MD [address] [address] Surgeon Neurosurgery 02/13/23 Katherine Snow PA-C [address] [address] Specialist Neurosurgery 02/13/23 Per Leahy PA-C [address] [address] Specialist Neurosurgery 02/13/23 documented as of this encounter
--- OUTSIDE RECORDS SUMMARY | 2024-12-03 14:06 | XMS_ITS | Encounter Summary ---
Author Organization [facility] Address [address] [place] [address] Care Team Providers Care Sheep Sorter Name Role Phone Trey Mueller MD Primary Care Provider Unavaila Mily Mayen MD Primary Care Provider +[phone]- [phone] Ralf Gastelum MD Unavailable [phone] Gretchen Juan MD Unavailable [phone] Katherine Snow PA-C Unavailable [phone] Per Leahy PA-C Unavailable [phone] Reason for Visit * Reason Onset Date Comments refill request 03/04/2019 Encounter Details Date Type Department Care Team Description 03/04/2019 Refill Internal Medicine - [address], [address] [place] [address] Trey Mueller MD refill request Social History [...] on filedocumented in this encounter Care Teams Sheep Sorter Relationship Specialty Start Date End Date Trey Mueller MD PCP - General Internal Medicine 01/02/19 03/08/19 Mily Lawrence MD PCP - General Internal Medicine 03/09/19 Ralf Gastelum MD 300 [facility] [address] [place] [address] Specialist Cardiovascular Disease 06/08/22 Gretchen Juan MD 175 [facility] 300 [place] [address] Surgeon Neurosurgery 02/13/23 Katherine Snow PA-C [address] [address] Specialist Neurosurgery 02/13/23 Per Leahy PA-C [address] [address] Specialist Neurosurgery 02/13/23 documented as of this encounter
--- OUTSIDE RECORDS SUMMARY | 2024-12-03 14:06 | XMS_ITS | Encounter Summary ---
Author Organization [facility] Address [address] [place] [address] Care Team Providers Care Tube Machine Operator Name Role Phone Mily Lawrence MD Primary Care Provider +1 [phone] Ralf Gastelum MD Unavailable [phone] Gretchen Juan MD Unavailable [phone] Katherine Sonw PA-C Unavailable [phone] Per Leahy PA-C Unavailable [phone] Encounter Details Date Type Department Care Team Description 05/12/2019 Orders Only Medical Records [address] [place] [address] Abstract, Provider Breast microcalcification, mammographic Social History [...] MAMMO INCL CAD BI (05/11/2019) Irish Snow ANIMAL CRUELTY INVESTIGATOR MAMMOGRAPHY documented in this encounter Visit Diagnoses Diagnosis Breast microcalcification, mammographic Mammographic microcalcification documented in this encounter Care Teams Tube Machine Operator Relationship Specialty Start Date End Date Mily Lawrence MD PCP - General Internal Medicine 03/09/19 Ralf Gastelum MD 300 [facility] [address] [place] [address] Specialist Cardiovascular Disease 06/08/22 Gretchen Juan MD [address] [address] Surgeon Neurosurgery 02/13/23 Katherine Snow PA-C 175 [facility] 300 [place] [address] Specialist Neurosurgery 02/13/23 Per Leahy PA-C 175 [facility] 300 [place] [address] Specialist Neurosurgery 02/13/23 documented as of this encounter
--- OUTSIDE RECORDS SUMMARY | 2024-12-03 14:06 | XMS_ITS | Encounter Summary ---
Author Organization [facility] Address [address] [place] [address] Care Team Providers Care Massage Operator Name Role Phone Mily Lawrence MD Primary Care Provider +1 [phone] Ralf Gastelum MD Unavailable [phone] Gretchen Juan MD Unavailable [phone] Katherine Snow PA-C Unavailable [phone] Per Leahy PA-C Unavailable [phone] Encounter Details Date Type Department Care Team Description 04/14/2024 Hospital Medical Records [address] [place] [id number] [place] [address] Social History Tobacco Use Types Packs/Day Years [...] on filedocumented in this encounter Care Teams Massage Operator Relationship Specialty Start Date End Date Mily Lawrence MD PCP - General Internal Medicine 03/09/19 Ralf Gastelum MD 300 [facility] [address] [place] [address] Specialist Cardiovascular Disease 06/08/22 Gretchen Juan MD 175 [facility] 300 [place] [address] Surgeon Neurosurgery 02/13/23 Katherine Snow PA-C 175 [facility] 300 [place] [address] Specialist Neurosurgery 02/13/23 Per Leahy PA-C 175 [facility] 300 [place] [address] Specialist Neurosurgery 02/13/23 documented as of this encounter
--- OUTSIDE RECORDS SUMMARY | 2024-12-03 14:06 | XMS_ITS | Encounter Summary ---
Author Organization [facility] Address [address] [place] [address] Care Team Providers Care Rubber Compounder Name Role Phone Mily Lawrence MD Primary Care Provider +1 [phone] Ralf Gastelum MD Unavailable [phone] Gretchen Juan MD Unavailable [phone] Katherine Snow PA-C Unavailable [phone] Per Leahy PA-C Unavailable [phone] Encounter Details Date Type Department Care Team Description 04/14/2024 [facility]AN Medical Records [address] [place] [address] Jaret Kim MD Social History Tobacco Use [...] on filedocumented in this encounter Care Teams Rubber Compounder Relationship Specialty Start Date End Date Mily Lawrence MD PCP - General Internal Medicine 03/09/19 Ralf Gastelum MD 300 [facility] [address] [place] [address] Specialist Cardiovascular Disease 06/08/22 Gretchen Juan MD [address] [address] Surgeon Neurosurgery 02/13/23 Katherine Snow PA-C [address] [address] Specialist Neurosurgery 02/13/23 Per Leahy PA-C 175 [facility] 300 [place] [address] Specialist Neurosurgery 02/13/23 documented as of this encounter
--- OUTSIDE RECORDS SUMMARY | 2024-12-03 14:06 | XMS_ITS | Encounter Summary ---
Author Organization [facility] Address [address] [place] [address] Care Team Providers Care Patient Care Coordinator Name Role Phone Trey Mueller MD Primary Care Provider Unavaila ble Mily Lawrence MD Primary Care Provider +[phone]- [phone] Ralf Gastelum MD Unavailable [phone] Gretchen Juan MD Unavailable [phone] Katherine Snow PA-C Unavailable [phone] Per Leahy PA-C Unavailable [phone] Encounter Details Date Type Department Care Team Description 02/04/2019 [facility] Medical Records [address] [place] [id number] [place] [address] Social History Tobacco Use Types Packs/Day Years [...] on filedocumented in this encounter Care Teams Patient Care Coordinator Relationship Specialty Start Date End Date Trey Mueller MD PCP - General Internal Medicine 01/02/19 03/08/19 Mily Lawrence MD PCP - General Internal Medicine 03/09/19 Ralf Gastelum MD 300 [facility] [address] [place] [address] Specialist Cardiovascular Disease 06/08/22 Gretchen Juan MD 175 [facility] 300 [place] [address] Surgeon Neurosurgery 02/13/23 Katherine Snow PA-C 175 [facility] 300 [place] [address] Specialist Neurosurgery 02/13/23 Per Leahy PA-C 175 [facility] 300 [place] [address] Specialist Neurosurgery 02/13/23 documented as of this encounter
--- OUTSIDE RECORDS SUMMARY | 2024-12-03 14:06 | XMS_ITS | Encounter Summary ---
Author Organization [facility] Address [address] [place] [address] Care Team Providers Care Stallion Manager Name Role Phone Mily Lawrence MD Primary Care Provider +1 [phone] Ralf Gastelum MD Unavailable [phone] Gretchen Juan MD Unavailable [phone] Katherine Snow PA-C Unavailable [phone] Per Leahy PA-C Unavailable [phone] Reason for Visit * Reason Comments E-prescribe Rx Request Encounter Details Date Type Department Care Team Description 06/01/2020 [facility] Internal Medicine [address], [address] [place] [address] Mily Lawrence MD [address] [place] [phone] E-prescribe Rx Request Social History Tobacco [...] sciatica documented in this encounter Care Teams Stallion Manager Relationship Specialty Start Date End Date Mily Lawrence MD PCP - General Internal Medicine 03/09/19 Ralf Gastelum MD 300 [facility] 154 [place] [address] Specialist Cardiovascular Disease 06/08/22 Gretchen Juan MD [address] [address] Surgeon Neurosurgery 02/13/23 Katherine Snow PA-C [address] [address] Specialist Neurosurgery 02/13/23 Per Leahy PA-C 175 [facility] [address] [place] [address] Specialist Neurosurgery 02/13/23 documented as of this encounter
--- OUTSIDE RECORDS SUMMARY | 2024-12-03 14:06 | XMS_ITS | Continuity of Care Document ---
Author Organization [facility] Address [address] [place] [phone] Phone Care Team Providers Care Category Consultant Name Role Phone Provider, [employer] Unavailable Unavailable Advance Directives Directive Yes / No Effective Date File Name No Information Encounters Encounter Description Practice Location Reason(s) For Visit Diagnoses Date Provider Providers Copied on Encounter [facility], [address] [facility], [place], [place], [id number], [place] tel:[phone] No Information Provider [employer]. . Family History Family Member Type Diagnosis Age At Onset No Information Payers Payer name Insurance type Covered green party ID Authoriza tion(s) No Information Social History Type Description Quantity Date Captured Comments Sex Female Smoking Status No Information Chief Complaint And Reason For Visit No Information History Of Present Illness Encounter Date Complaint History Of Prese nt Illness No Information Instructions Date Instruction Additional Infor mation No Information Assessments Type Assessment Date No Information
--- OUTSIDE RECORDS SUMMARY | 2024-12-03 14:06 | XMS_ITS | Encounter Summary ---
Author Organization [facility] Address [address] [place] [address] Care Team Providers Care Production Designer Name Role Phone Mily Lawrence MD Primary Care Provider +1 [phone] Ralf Gastelum MD Unavailable [phone] Gretchen Juan MD Unavailable [phone] Katherine Snow PA-C Unavailable [phone] Per Leahy PA-C Unavailable [phone] Reason for Visit * Reason Comments E-prescribe Rx Request Encounter Details Date Type Department Care Team Description [facility]/29/[facility] - [address] [place] [address] Mily Lawrence MD [address] [place] [phone] E-prescribe Rx Request Social History Tobacco [...] filedocumented in this encounter Care Teams Production Designer Relationship Specialty Start Date End Date Mily Lawrence MD PCP - General Internal Medicine 03/09/19 Ralf Gastelum MD 300 [facility] 154 [place] [address] Specialist Cardiovascular Disease 06/08/22 Gretchen Juan MD 175 [facility] 300 [place] [address] Surgeon Neurosurgery 02/13/23 Katherine Snow PA-C [address] [address] Specialist Neurosurgery 02/13/23 Per Leahy PA-C [address] [address] Specialist Neurosurgery 02/13/23 documented as of this encounter
--- OUTSIDE RECORDS SUMMARY | 2024-12-03 14:06 | XMS_ITS | Encounter Summary ---
Author Organization [facility] Address [address] [place] [address] Care Team Providers Care Planer Stone Name Role Phone Mily Lawrence MD Primary Care Provider +1 [phone] Ralf Gastelum MD Unavailable [phone] Gretchen Juan MD Unavailable [phone] Katherine Snow PA-C Unavailable [phone] Per Leahy PA-C Unavailable [phone] Reason for Visit * Reason Comments E-prescribe Rx Request Encounter Details Date Type Department Care Team Description [facility] - [address] [place] [address] Mily Lawrence MD [address] [place] [phone] E-prescribe Rx Request Social History Tobacco [...] N/A Patients current insurance carrier is: Payor: [id number] FFS / Plan: [employer] / Product Type: MEDICAID RISK documented in this encounter Plan of Treatment Not on file documented as of this encounter Visit Diagnoses Not on filedocumented in this encounter Care Teams Planer Stone Relationship Specialty Start Date End Date Mily Lawrence MD PCP - General Internal Medicine 03/09/19 Ralf Gastelum MD 300 [facility] [address] [place] [address] Specialist Cardiovascular Disease 06/08/22 Gretchen Juan MD 175 [facility] 300 [place] [address] Surgeon Neurosurgery 02/13/23 Katherine Snow PA-C [address] [address] Specialist Neurosurgery 02/13/23 Per Leahy PA-C [address] [address] Specialist Neurosurgery 02/13/23 documented as of this encounter
--- OUTSIDE RECORDS SUMMARY | 2024-12-03 14:06 | XMS_ITS | Encounter Summary ---
Author Organization [facility] Address [address] [place] [address] Care Team Providers Care Manager Office Services Name Role Phone Mily Lawrence MD Primary Care Provider [phone] Ralf Gastelum MD Unavailable [phone] Gretchen Juan MD Unavailable [phone] Katherine Snow PA-C Unavailable [phone] Per Leahy PA-C Unavailable [phone] Reason for Visit * Reason Comments E-prescribe Rx Request Encounter Details Date Type Department Care Team Description 04/09/2019 Refill Adult Medicine B - [address] [address] Mily Lawrence MD [address] [place] [phone] E-prescribe Rx Request Social History Tobacco [...] N/A Patients current insurance carrier is: Payor: [employer] FFS / Plan: [employer] / Product Type: MEDICAID RISK documented in this encounter Plan of Treatment Not on file documented as of this encounter Visit Diagnoses Not on filedocumented in this encounter Care Teams Manager Office Services Relationship Specialty Start Date End Date Mily Lawrence MD PCP - General Internal Medicine 03/09/19 Ralf Gastelum MD [address] [place], [place] [address], [place] [address] Specialist Cardiovascular Disease 06/08/22 Gretchen Juan MD 175 [facility] 300 [place] [address] Surgeon Neurosurgery 02/13/23 Katherine Snow PA-C [address] [address] Specialist Neurosurgery 02/13/23 Per Leahy PA-C 175 [facility] 300 [place] [address] Specialist Neurosurgery 02/13/23 documented as of this encounter
--- OUTSIDE RECORDS SUMMARY | 2024-12-03 14:07 | XMS_ITS | Encounter Summary ---
Author Organization [facility] Address [address] [place] [address] Care Team Providers Care Forging Die Sinker Name Role Phone Mily Lawrence MD Primary Care Provider [phone] Ralf Gastelum MD Unavailable [phone] Gretchen Juan MD Unavailable [phone] Katherine Snow PA-C Unavailable [phone] Per Leahy PA-C Unavailable [phone] Encounter Details Date Type Department Care Team Description 04/05/2023 Escort Vehicle Driver Report Medical Records [address] [place] [address] Evelio Smith Social History Tobacco Use Types [...] on filedocumented in this encounter Care Teams Forging Die Sinker Relationship Specialty Start Date End Date Mily Lawrence MD PCP - General Internal Medicine 03/09/19 Ralf Gastelum MD 300 [facility] [address] [place] [address] Specialist Cardiovascular Disease 06/08/22 Gretchen Juan MD 175 [facility] 300 [place] [address] Surgeon Neurosurgery 02/13/23 Katherine Snow PA-C 175 [facility] 300 [place] [address] Specialist Neurosurgery 02/13/23 Per Leahy PA-C 175 [facility] 300 [place] [address] Specialist Neurosurgery 02/13/23 documented as of this encounter
--- OUTSIDE RECORDS SUMMARY | 2024-12-03 14:07 | XMS_ITS | Encounter Summary ---
Author Organization [facility] Address [address] [place] [address] Care Team Providers Care Associate Professor Computer Science Name Role Phone Mily Lawrence MD Primary Care Provider [phone] Ralf Gastelum MD Unavailable [phone] Gretchen Juan MD Unavailable [phone] Katherine Snow PA-C Unavailable [phone] Per Leahy PA-C Unavailable [phone] Reason for Visit * Reason Comments E-prescribe Rx Request Encounter Details Date Type Department Care Team Description [facility] - [address], [address] [place] [address] Mily Lawrence MD [address] [place] [phone] E-prescribe Rx Request Social History Tobacco [...] unspecified documented in this encounter Care Teams Associate Professor Computer Science Relationship Specialty Start Date End Date Mily Lawrence MD PCP - General Internal Medicine 03/09/19 Ralf Gastelum MD 300 [facility] 154 [place] [address] Specialist Cardiovascular Disease 06/08/22 Gretchen Juan MD [address] [address] Surgeon Neurosurgery 02/13/23 Katherine Snow PA-C 175 [facility] 300 [place] [address] Specialist Neurosurgery 02/13/23 Per Leahy PA-C [address] [address] Specialist Neurosurgery 02/13/23 documented as of this encounter
--- OUTSIDE RECORDS SUMMARY | 2024-12-03 14:07 | XMS_ITS | Encounter Summary ---
Author Organization [facility] Address [address] [place] [address] Care Team Providers Care Merchandise Planner Name Role Phone Mily Lawrence MD Primary Care Provider [phone] Ralf Gastelum MD Unavailable [phone] Gretchen Juan MD Unavailable [phone] Katherine Snow PA-C Unavailable [phone] Per Leahy PA-C Unavailable [phone] Encounter Details Date Type Department Care Team Description 09/08/2020 Orders Only Medical Records [address] [place] [address] Mily Lawrence MD [address] [place] [phone] Social History Tobacco Use Types Packs/Day [...] on filedocumented in this encounter Care Teams Merchandise Planner Relationship Specialty Start Date End Date Mily Lawrence MD PCP - General Internal Medicine 03/09/19 Ralf Gastelum MD 300 [facility] [address] [place] [address] Specialist Cardiovascular Disease 06/08/22 Gretchen Juan MD 175 [facility] 300 [place] [address] Surgeon Neurosurgery 02/13/23 Katherine Snow PA-C 175 [facility] 300 [place] [address] Specialist Neurosurgery 02/13/23 Per Leahy PA-C 175 [facility] 300 [place] [address] Specialist Neurosurgery 02/13/23 documented as of this encounter
--- OUTSIDE RECORDS SUMMARY | 2024-12-03 14:07 | XMS_ITS | Encounter Summary ---
Author Organization [facility] Address [address] [place] [address] Care Team Providers Care System Software Developer Name Role Phone Mily Lawrence MD Primary Care Provider Ralf Gastelum MD Unavailable [phone] Gretchen Juan MD Unavailable [phone] Katherine Snwo PA-C Unavailable [phone] Per Leahy PA-C Unavailable Encounter Details Date Type Department Care Team Description 07/30/2024 SCAN [facility] Medical [facility] Neurosurgery [place] [facility] [address] [id number] Per Leahy PA-C [address] [id number] Social History Tobacco Use Types Packs/Day Years [...] on filedocumented in this encounter Care Teams System Software Developer Relationship Specialty Start Date End Date Mily Lawrence MD PCP - General Internal Medicine 03/09/19 Ralf Gastelum MD 300 [facility] 154 [place] [address] Specialist Cardiovascular Disease 06/08/22 Gretchen Juan MD 175 [facility] 300 [place] [address] Surgeon Neurosurgery 02/13/23 Katherine Snow PA-C 175 [facility] 300 [place] [address] Specialist Neurosurgery 02/13/23 Per Leahy PA-C 175 [facility] 300 [place] [address] Specialist Neurosurgery 02/13/23 documented as of this encounter
--- OUTSIDE RECORDS SUMMARY | 2024-12-03 14:07 | XMS_ITS | Encounter Summary ---
Author Organization [facility] Address [address] [place] [address] Care Team Providers Care Educational Audiologist Name Role Phone Mily Lawrence MD Primary Care Provider [phone] Ralf Gastelum MD Unavailable [phone] Gretchen Juan MD Unavailable [phone] Katherine Snow PA-C Unavailable [phone] Per Leahy PA-C Unavailable [phone] Encounter Details Date Type Department Care Team Description 02/05/2024 Hydrostatic Tubing Tester Report Medical Records [address] [place] [address] Florina Perla MD Social History Tobacco Use [...] on filedocumented in this encounter Care Teams Educational Audiologist Relationship Specialty Start Date End Date Mily Lawrence MD PCP - General Internal Medicine 03/09/19 Ralf Gastelum MD 300 [facility] [address] [place] [address] Specialist Cardiovascular Disease 06/08/22 Gretchen Juan MD 175 [facility] 300 [place] [address] Surgeon Neurosurgery 02/13/23 Katherine Snow PA-C 175 [facility] 300 [place] [address] Specialist Neurosurgery 02/13/23 Per Leahy PA-C 175 [facility] 300 [place] [address] Specialist Neurosurgery 02/13/23 documented as of this encounter
--- OUTSIDE RECORDS SUMMARY | 2024-12-03 14:07 | XMS_ITS | Clinical Summary ---
Author Organization [facility] Address [address] [place] [address] Care Team Providers Care Retail Client Solutions Analyst Name Role Phone Mily Lawrence MD Primary Care Provider Ralf Gastelum MD Unavailable [phone] Gretchen Juan MD Unavailable [phone] Katherine Snow PA-C Unavailable [phone] Per Leahy PA-C Unavailable Allergies Active Allergy [...] then 40's; 04/2017 genetic testing negative 07/2023 [facility] hereditary breast/ovarian cancer screen NEGATIVE. There is [...] spinal instrumentation performed by Dr. Hayward at [facility] in [place]. This the surgery, she has been a patient in rehab at [address] [place] [address]. While there, she is participating in physical [...] Advance Directives For more information, please contact: [phone] Documents on File Type Date Recorded Patient Hearing Officer Expl savi Health Care Proxy 02/11/2024 3:25 PM [facility] Care Teams Retail Client Solutions Analyst Relationship Specialty Start Date End Date Mily Lawrnece MD PCP - General Internal Medicine 03/09/19 Ralf Gastelum MD 300 [facility] 154 [place] [address] Specialist Cardiovascular Disease 06/08/22 Gretchen Juan MD [address] [address] Surgeon Neurosurgery 02/13/23 Katherine Snow PA-C [address] [address] Specialist Neurosurgery 02/13/23 Per Leahy PA-C [address] [address] Specialist Neurosurgery 02/13/23
--- OUTSIDE RECORDS SUMMARY | 2024-12-03 14:07 | XMS_ITS | Encounter Summary ---
Author Organization [facility] Address [address] [place] [address] Care Team Providers Care Associate Director Name Role Phone Mily Lawrence MD Primary Care Provider [phone] Ralf Gastelum MD Unavailable [phone] Gretchen Juan MD Unavailable [phone] Katherine Snow PA-C Unavailable [phone] Per Leahy PA-C Unavailable [phone] Encounter Details Date Type Department Care Team Description 06/15/2024 Pt. Non Urgent Medical Question Internal Medicine - [place] 175 [facility], [address] [place] [address] Mily Lawrence MD [address] [place] [phone] Social History Tobacco Use Types Packs/Day [...] on filedocumented in this encounter Care Teams Associate Director Relationship Specialty Start Date End Date Mily Lawrence MD PCP - General Internal Medicine 03/09/19 Ralf Gastelum MD 300 [facility] [address] [place] [address] Specialist Cardiovascular Disease 06/08/22 Gretchen Juan MD 175 [facility] 300 [place] [address] Surgeon Neurosurgery 02/13/23 Katherine Snow PA-C 175 [facility] 300 [place] [address] Specialist Neurosurgery 02/13/23 Per Leahy PA-C 175 [facility] 300 [place] [address] Specialist Neurosurgery 02/13/23 documented as of this encounter
--- OUTSIDE RECORDS SUMMARY | 2024-12-03 14:07 | XMS_ITS | Encounter Summary ---
Author Organization [facility] Address [address] [place] [address] Care Team Providers Care Sewer Pipe Sorter Name Role Phone Mily Lawrence MD Primary Care Provider [phone] Ralf Gastelum MD Unavailable [phone] Gretchen Juan MD Unavailable [phone] Katherine Snow PA-C Unavailable [phone] Per Leahy PA-C Unavailable [phone] Reason for Visit * Reason Comments E-prescribe Rx Request Encounter Details Date Type Department Care Team Description 06/12/2022 Refill Internal Medicine [address], [address] [place] [address] Mily Lawrence MD [address] [place] [phone] E-prescribe Rx Request Social History Tobacco [...] on filedocumented in this encounter Care Teams Sewer Pipe Sorter Relationship Specialty Start Date End Date Mily Lawrence MD PCP - General Internal Medicine 03/09/19 Ralf Gastelum MD 300 [facility] 154 [place] [address] Specialist Cardiovascular Disease 06/08/22 Gretchen Juan MD 175 [facility] 300 [place] [address] Surgeon Neurosurgery 02/13/23 Katherine Snow PA-C [address] [address] Specialist Neurosurgery 02/13/23 Per Leahy PA-C 175 [facility] 300 [place] [address] Specialist Neurosurgery 02/13/23 documented as of this encounter
--- OUTSIDE RECORDS SUMMARY | 2024-12-03 14:07 | XMS_ITS | Encounter Summary ---
Author Organization [facility] Address [address] [place] [address] Care Team Providers Care Battery Container Inspector Name Role Phone Mily Lawrence MD Primary Care Provider [phone] Ralf Gastelum MD Unavailable [phone] Gretchen Juan MD Unavailable [phone] Katherine Snow PA-C Unavailable [phone] Per Leahy PA-C Unavailable [phone] Encounter Details Date Type Department Care Team Description 06/24/2024 Pt. Non Urgent Medical Question Internal Medicine - [place] 175 [facility], [address] [place] [address] Mily Lawrence MD [address] [place] [phone] Social History Tobacco Use Types Packs/Day [...] on filedocumented in this encounter Care Teams Battery Container Inspector Relationship Specialty Start Date End Date Mily Lawrence MD PCP - General Internal Medicine 03/09/19 Ralf Gastelum MD 300 [facility] [address] [place] [address] Specialist Cardiovascular Disease 06/08/22 Gretchen Juan MD 175 [facility] 300 [place] [address] Surgeon Neurosurgery 02/13/23 Katherine Snow PA-C 175 [facility] 300 [place] [address] Specialist Neurosurgery 02/13/23 Per Leahy PA-C 175 [facility] 300 [place] [address] Specialist Neurosurgery 02/13/23 documented as of this encounter
--- OUTSIDE RECORDS SUMMARY | 2024-12-03 14:07 | XMS_ITS | Encounter Summary ---
Author Organization [facility] Address [address] [place] [address] Care Team Providers Care Transformer Coil Winder Name Role Phone Mily Lawrence MD Primary Care Provider [phone] Ralf Gastelum MD Unavailable [phone] Gretchen Juan MD Unavailable [phone] Katherine Snow PA-C Unavailable [phone] Per Leahy PA-C Unavailable [phone] Reason for Visit * Reason Onset Date Comments refill request 11/10/2021 Encounter Details Date Type Department Care Team Description 11/10/2021 Refill Internal Medicine - [address], [address] [place] [address] Mily Lawrence MD [address] [place] [phone] refill request Social History Tobacco Use [...] encounter Miscellaneous Notes * Telephone Encounter - Aparna Edwards CNM - 11/14/2021 5:33 PM EST Telephone Information: Work Phone Not on file. Call to mobile no answer,message left to call back tomorrow call to pt to explain that her request is for OTC herbal supplements and a prescription is not indicated/covered. It is not on our current med list Aparna Edwards CNM * Telephone Encounter - Paulina Henry LRigobertoP.NRigoberto - 11/14/2021 11:21 AM EST Patient sees [facility] / will re route to appropriate provider * Telephone Encounter - Sapna Concepcion - 11/10/2021 3:12 PM EST Patient is requesting Rx for Vitamin B 1 and B 6 and black cohart for menopause. LOGNA 10/17/2021 NOV 11/21/2021 documented in this encounter Plan of Treatment Not on file documented as of this encounter Visit Diagnoses Not on filedocumented in this encounter Care Teams Transformer Coil Winder Relationship Specialty Start Date End Date Mily Lawrence MD PCP - General Internal Medicine 03/09/19 Ralf Gastelum MD [address] [facility] [address] [place] [address] Specialist Cardiovascular Disease 06/08/22 Gretchen Juan MD 175 [facility] 300 [place] [address] Surgeon Neurosurgery 02/13/23 Katherine Snow PA-C 175 [facility] 300 [place] [address] Specialist Neurosurgery 02/13/23 Per Leahy PA-C 175 [facility] 300 [place] [address] Specialist Neurosurgery 02/13/23 documented as of this encounter
--- OUTSIDE RECORDS SUMMARY | 2024-12-03 14:07 | XMS_ITS | Clinical Summary ---
Author Organization [facility] Address [address] [place] [address] Care Team Providers Care Associate Professor Of Engineering Name Role Phone Mily Lawrence MD Primary Care Provider [phone] Allergies Active Allergy Reactions Criticality Noted Date [...] this topic Medical Devices Implanted Type Area Amusement Park Worker Device Identifier Shelf Expiration Date Model / Serial / Lot Putty Vesuvius 100 5ml Stry-K2m [id number] - [id number] Implanted:Qty: 1 on 07/16/2024 by [place]ward [place] [facility] [place] Lateral: Spine Lumbar LAXMI SPINE 02/17/2027 [id number] / [id number] / Bone Graft Spine Infus Xsm Medt-Sofa [id number] - [id number] Implanted:Qty: 1 on 07/16/2024 by [place]ward [place] [facility] [place] Lateral: Spine Lumbar [employer]TR[employer] SOFAMOR DANEK 11/20/2025 [id number] / / [id number] [place] Interbody System Implanted:Qty: 1 on 07/16/2024 by Nathan Haywadr [place] [facility] [place] Lateral: Spine Lumbar LAXMI - MEDICAL 10/30/2028 [id number] / / [id number] Plate [facility] 2hl 18mm Stry-K2m [id number] - [id number] Implanted:Qty: 1 on 07/16/2024 by Nathan Hayward MD at [facility] Med Lateral: Spine Lumbar LAXMI SPINE [id number] / / 5.0x40mm Screw Implanted:Qty: 2 on 07/16/2024 by Nathan [place]ward [place] at [facility] [place] Lateral: Spine Lumbar LAXMI - MEDICAL [id number] / / Plate Assembly Screw Implanted:Qty: 1 on 07/16/2024 by Nathan Hayward MD at [facility] [place] Lateral: Spine Lumbar LAXMI - MEDICAL [id number] / / Advance Directives For more information, please contact: [phone] Latest Code Status on File Code Status [...] way: discussion with patient . Care Teams Associate Professor Of Engineering Relationship Specialty Start Date End Date Mily Lawrence MD [address] [place] [phone] PCP - General Internal Medicine 06/12/17
--- OUTSIDE RECORDS SUMMARY | 2024-12-03 14:07 | XMS_ITS | Encounter Summary ---
Author Organization [facility] Address [address] [place] [address] Care Team Providers Care Development Team Lead Name Role Phone Mily Lawrence MD Primary Care Provider Ralf Gastelum MD Unavailable [phone] Gretchen Juan MD Unavailable [phone] Katherine Snow PA-C Unavailable [phone] Per Leahy PA-C Unavailable [phone] Encounter Details Date Type Department Care Team Description 07/10/2024 Telephone [facility] [address] [address] Brian Ferrari MD [address] [phone] Social History Tobacco Use Types Packs/Day Years [...] at Date Recorded Female 12/24/2022 3:[address] [employer] [address] Job Start Date Occupation Industry Not on file Not on file Not on file documented as of this encounter Miscellaneous Notes * Telephone Encounter - Sussy Mcgill NP - 07/13/2024 7:19 AM EDT Rx for predental antibiotics sent to [facility] with 2 refills for future appointments. * Telephone Encounter - Marci Garrido - 07/10/2024 3:34 PM EDT Pt needs predental antibiotics for an upcoming appt [facility] documented in this encounter Plan of Treatment Not on file documented as of this encounter Visit Diagnoses Not on filedocumented in this encounter Care Teams Development Team Lead Relationship Specialty Start Date End Date Mily Lawrence MD PCP - General Internal Medicine 03/09/19 Ralf Gastelum MD 300 [facility] [address] [place] [address] Specialist Cardiovascular Disease 06/08/22 Gretchen Juan MD 175 [facility] 300 [place] [address] Surgeon Neurosurgery 02/13/23 Katherine Snow PA-C [address] [address] Specialist Neurosurgery 02/13/23 Per Leahy PA-C [address] [address] Specialist Neurosurgery 02/13/23 documented as of this encounter
--- OUTSIDE RECORDS SUMMARY | 2024-12-03 14:07 | XMS_ITS | Encounter Summary ---
Author Organization [facility] Address [address] [place] [address] Care Team Providers Care Tomographic Tech Name Role Phone Mily Lawrence MD Primary Care Provider [phone] Ralf Gastelum MD Unavailable [phone] Gretchen Juan MD Unavailable [phone] Katherine Snow PA-C Unavailable [phone] Per Leahy PA-C Unavailable [phone] Encounter Details Date Type Department Care Team Description 06/15/2024 Metal Solderer Report Medical Records [address] [place] [address] Florina Perla MD Social History Tobacco Use [...] on filedocumented in this encounter Care Teams Tomographic Tech Relationship Specialty Start Date End Date Mily Lawrence MD PCP - General Internal Medicine 03/09/19 Ralf Gastelum MD 300 [facility] [address] [place] [address] Specialist Cardiovascular Disease 06/08/22 Gretchen Juan MD 175 [facility] 300 [place] [address] Surgeon Neurosurgery 02/13/23 Katherine Snow PA-C 175 [facility] 300 [place] [address] Specialist Neurosurgery 02/13/23 Per Leahy PA-C 175 [facility] 300 [place] [address] Specialist Neurosurgery 02/13/23 documented as of this encounter
--- OUTSIDE RECORDS SUMMARY | 2024-12-03 14:07 | XMS_ITS | Encounter Summary ---
Author Organization [facility] Address [address] [place] [address] Care Team Providers Care Shirt Turner Name Role Phone Mily Lawrence MD Primary Care Provider Ralf Gastelum MD Unavailable [phone] Gretchen Juan MD Unavailable [phone] Katherine Snow PA-C Unavailable [phone] Per Lehay PA-C Unavailable [phone] Reason for Visit * Reason Comments E-prescribe Rx Request Encounter Details Date Type Department Care Team Description 08/20/2024 Refill [facility] [address] [address] Brian Ferrari MD [address] [place] [address] E-prescribe Rx Request Social History Tobacco Use [...] Sciatica documented in this encounter Care Teams Shirt Turner Relationship Specialty Start Date End Date Mily Lawrence MD PCP - General Internal Medicine 03/09/19 Ralf Gastelum MD 300 [facility] 154 [place] [address] Specialist Cardiovascular Disease 06/08/22 Gretchen Juan MD [address] [address] Surgeon Neurosurgery 02/13/23 Katherine Snow PA-C [address] [address] Specialist Neurosurgery 02/13/23 Per Leahy PA-C [address] [address] Specialist Neurosurgery 02/13/23 documented as of this encounter
--- OUTSIDE RECORDS SUMMARY | 2024-12-03 14:07 | XMS_ITS | Encounter Summary ---
Author Organization [facility] Address [address] [place] [address] Care Team Providers Care Lobster Man Name Role Phone Mily Lawrence MD Primary Care Provider Ralf Gastelum MD Unavailable [phone] Gretchen Juan MD Unavailable [phone] Katherine Snow PA-C Unavailable [phone] Per Leahy PA-C Unavailable [phone] Reason for Visit * Reason Comments E-prescribe Rx Request Encounter Details Date Type Department Care Team Description 09/26/2024 Refill [facility] [address] [address] Brian Ferrari MD [address] [place] [address] E-prescribe Rx Request Social History Tobacco Use [...] Sciatica documented in this encounter Care Teams Lobster Man Relationship Specialty Start Date End Date Mily Lawrence MD PCP - General Internal Medicine 03/09/19 Ralf Gastelum MD 300 [facility] [address] [place] [address] Specialist Cardiovascular Disease 06/08/22 Gretchen Juan MD [address] [address] Surgeon Neurosurgery 02/13/23 Katherine Snow PA-C [address] [address] Specialist Neurosurgery 02/13/23 Per Leahy PA-C [address] [address] Specialist Neurosurgery 02/13/23 documented as of this encounter
--- OUTSIDE RECORDS SUMMARY | 2024-12-03 14:07 | XMS_ITS | Encounter Summary ---
Author Organization [facility] Address [address] [place] [address] Care Team Providers Care Emt Dispatcher Name Role Phone Mily Lawrence MD Primary Care Provider +[phone]- [phone] Ralf Gastelum MD Unavailable [phone] Gretchen Juan MD Unavailable [phone] Katherine Snow PA-C Unavailable [phone] Per Leahy PA-C Unavailable +[phone] Encounter Details Date Type Department Care Team Description 11/14/2023 Orders Only Medical Records [address] [place] [address] Oliver Blank Social History Tobacco Use Types [...] on filedocumented in this encounter Care Teams Emt Dispatcher Relationship Specialty Start Date End Date Mily Lawrence MD PCP - General Internal Medicine 03/09/19 Ralf Gastelum MD 300 [facility] [address] [place] [address] Specialist Cardiovascular Disease 06/08/22 Gretchen Juan MD 175 [facility] 300 [place] [address] Surgeon Neurosurgery 02/13/23 Katherine Snow PA-C 175 [facility] 300 [place] [address] Specialist Neurosurgery 02/13/23 Per Leahy PA-C 175 [facility] [address] [place] [address] Specialist Neurosurgery 02/13/23 documented as of this encounter
--- OUTSIDE RECORDS SUMMARY | 2024-12-03 14:07 | XMS_ITS | Encounter Summary ---
Author Organization [facility] Address [address] [place] [address] Care Team Providers Care Closing Coordinator Name Role Phone Mily Lawrence MD Primary Care Provider +1 [phone] Ralf Gastelum MD Unavailable [phone] Gretchen Juan MD Unavailable [phone] Katherine Snow PA-C Unavailable [phone] Per Leahy PA-C Unavailable [phone] Encounter Details Date Type Department Care Team Description 03/26/2023 Convenience Store Clerk Report Medical Records [address] [place] [address] Sravanthi Doss Social History Tobacco Use Types [...] on filedocumented in this encounter Care Teams Closing Coordinator Relationship Specialty Start Date End Date Mily Lawrence MD PCP - General Internal Medicine 03/09/19 Ralf Gastelum MD [address] [facility] [address] [place] [address] Specialist Cardiovascular Disease 06/08/22 Gretchen Juan MD 175 [facility] 300 [place] [address] Surgeon Neurosurgery 02/13/23 Katherine Snow PA-C 175 [facility] 300 [place] [address] Specialist Neurosurgery 02/13/23 Per Leahy PA-C 175 [facility] 300 [place] [address] Specialist Neurosurgery 02/13/23 documented as of this encounter
--- OUTSIDE RECORDS SUMMARY | 2024-12-03 14:07 | XMS_ITS | Encounter Summary ---
Author Organization [facility] Address [address] [place] [address] Care Team Providers Care Corporate Banking Officer Name Role Phone Mily Lawrence MD Primary Care Provider +[phone] Ralf Gastelum MD Unavailable [phone] Gretchen Juan MD Unavailable [phone] Katherine Snow PA-C Unavailable [phone] Per Leahy PA-C Unavailable [phone] Encounter Details Date Type Department Care Team Description 11/22/2020 Orders Only Medical Records [address] [place] [address] Mily Lawrence MD [address] [place] [phone] Social History Tobacco Use Types Packs/Day [...] Date/Time Associated Diagnosis Comments OUTSIDE ULTRASOUND Routine 11/21/2020 documented in this encounter Results * OUTSIDE ULTRASOUND (11/21/2020) Mily Lawrence MD RADIOLOGY documented in this encounter Visit Diagnoses Not on filedocumented in this encounter Care Teams Corporate Banking Officer Relationship Specialty Start Date End Date Mily Lawrence MD PCP - General Internal Medicine 03/09/19 Ralf Gastelum MD 300 [facility] [address] [place] [address] Specialist Cardiovascular Disease 06/08/22 Gretchen Juan MD [address] [address] Surgeon Neurosurgery 02/13/23 Katherine Snow PA-C 175 [facility] 300 [place] [address] Specialist Neurosurgery 02/13/23 Per Leahy PA-C [address] [address] Specialist Neurosurgery 02/13/23 documented as of this encounter
--- OUTSIDE RECORDS SUMMARY | 2024-12-03 14:07 | XMS_ITS | Encounter Summary ---
Author Organization [facility] Address [address] [place] [address] Care Team Providers Care Teletype Mechanic Name Role Phone Miyl Lawrence MD Primary Care Provider +1 [phone] Ralf Gastelum MD Unavailable [phone] Gretchen Juan MD Unavailable [phone] Katherine Snow PA-C Unavailable [phone] Per Leahy PA-C Unavailable [phone] Encounter Details Date Type Department Care Team Description 07/12/2023 Offset Press Operator Apprentice Report Medical Records [address] [place] [address] Sravanthi Doss Social History Tobacco Use Types [...] on filedocumented in this encounter Care Teams Teletype Mechanic Relationship Specialty Start Date End Date Mily Lawrence MD PCP - General Internal Medicine 03/09/19 Ralf Gastelum MD 300 [facility] [address] [place] [address] Specialist Cardiovascular Disease 06/08/22 Gretchen Juan MD 175 [facility] 300 [place] [address] Surgeon Neurosurgery 02/13/23 Katherine Snow PA-C 175 [facility] 300 [place] [address] Specialist Neurosurgery 02/13/23 Per Leahy PA-C 175 [facility] 300 [place] [address] Specialist Neurosurgery 02/13/23 documented as of this encounter
--- OUTSIDE RECORDS SUMMARY | 2024-12-03 14:07 | XMS_ITS | Encounter Summary ---
Author Organization [facility] Address [address] [place] [address] Care Team Providers Care Branch Service Associate Name Role Phone Mily Lawrence MD Primary Care Provider [phone] Ralf Gastelum MD Unavailable [phone] Gretchen Juan MD Unavailable [phone] Katherine Snow PA-C Unavailable [phone] Per Leahy PA-C Unavailable [phone] Reason for Visit * Reason Comments E-prescribe Rx Request Encounter Details Date Type Department Care Team Description 08/15/2020 [facility] [facility] Internal Medicine [address], [address] [place] [address] Alejandro Sibley MD [address] [place] [address] E-prescribe Rx Request Social History Tobacco Use [...] on filedocumented in this encounter Care Teams Branch Service Associate Relationship Specialty Start Date End Date Mily Lawrence MD PCP - General Internal Medicine 03/09/19 Ralf Gastelum MD 300 [facility] [address] [place] [address] Specialist Cardiovascular Disease 06/08/22 Gretchen Juan MD [address] [address] Surgeon Neurosurgery 02/13/23 Katherine Snow PA-C [address] [address] Specialist Neurosurgery 02/13/23 Per Leahy PA-C 175 [facility] [address] [place] [address] Specialist Neurosurgery 02/13/23 documented as of this encounter
--- OUTSIDE RECORDS SUMMARY | 2024-12-03 14:07 | XMS_ITS | Encounter Summary ---
Author Organization [facility] Address [address] [place] [address] Care Team Providers Care Client Care Coordinator Name Role Phone Mily Lawrence MD Primary Care Provider +1- [phone] Ralf Gastelum MD Unavailable [phone] Gretchen Juan MD Unavailable [phone] Katherine Snow PA-C Unavailable [phone] Per Leahy PA-C Unavailable [phone] Encounter Details Date Type Department Care Team Description 10/11/2020 Orders Only Medical Records [address] [place] [address] Mily Lawrence MD [address] [place] [phone] Breast mass, left Social History Tobacco [...] Mily Lawrence MD ULTRASOUND Performing Organization Address City/State/[facility] Co de Phone Number [address] documented in this encounter Visit Diagnoses Diagnosis Breast mass, left Lump or mass in breast documented in this encounter Care Teams Client Care Coordinator Relationship Specialty Start Date End Date Mily Lawrence MD PCP - General Internal Medicine 03/09/19 Ralf Gastelmu MD 300 [facility] [address] [place] [address] Specialist Cardiovascular Disease 06/08/22 Gretchen Juan MD [address] [facility] 300 [place] [address] Surgeon Neurosurgery 02/13/23 Katherine Snow PA-C 175 [facility] 300 [place] [address] Specialist Neurosurgery 02/13/23 Per Leahy PA-C 175 [facility] 300 [place] [address] Specialist Neurosurgery 02/13/23 documented as of this encounter
--- OUTSIDE RECORDS SUMMARY | 2024-12-03 14:07 | XMS_ITS | Encounter Summary ---
Author Organization [facility] Address [address] [place] [address] Care Team Providers Care Porcelain Enamel Laborer Name Role Phone Mily Lawrence MD Primary Care Provider Ralf Gastelum MD Unavailable [phone] Gretchen Juan MD Unavailable [phone] Katherine Snow PA-C Unavailable [phone] Per Leahy PA-C Unavailable [phone] Encounter Details Date Type Department Care Team Description 08/16/2023 Orders Only OBGYN - 271 [facility] 271 [place] [address] Aparna Edwards, RAMBO 175 [place] [address] Encounter for well woman exam [...] DNA PROBE (08/01/2023) 08/01/2023 Aparna [facility] [employer] documented in this encounter Visit Diagnoses Diagnosis Encounter for well woman exam with routine gynecological exam Screen for STD (sexually transmitted disease) Screening examination for venereal disease documented in this encounter Care Teams Porcelain Enamel Laborer Relationship Specialty Start Date End Date Mily Lawrence MD PCP - General Internal Medicine 03/09/19 Ralf Gastelum MD 300 [facility] [address] [place] [address] Specialist Cardiovascular Disease 06/08/22 Gretchen Juan MD 175 [facility] 300 [place] [address] Surgeon Neurosurgery 02/13/23 Katherine Snow PA-C 175 [facility] 300 [place] [address] Specialist Neurosurgery 02/13/23 Per Leahy PA-C 175 [facility] [address] [place] [address] Specialist Neurosurgery 02/13/23 documented as of this encounter
--- OUTSIDE RECORDS SUMMARY | 2024-12-03 14:07 | XMS_ITS | Encounter Summary ---
Author Organization [facility] Address [address] [place] [address] Care Team Providers Care Highway Research Engineer Name Role Phone Mily Lawrence MD Primary Care Provider [phone] Ralf Gastelum MD Unavailable [phone] Gretchen Juan MD Unavailable [phone] Katherine Snow PA-C Unavailable [phone] Per Leahy PA-C Unavailable [phone] Encounter Details Date Type Department Care Team Description 05/14/2024 Pt. Non Urgent Medical Question Internal Medicine - [place] 175 [facility], [address] [place] [address] Mily Lawrence MD [address] [place] [phone] Social History Tobacco Use Types Packs/Day [...] on filedocumented in this encounter Care Teams Highway Research Engineer Relationship Specialty Start Date End Date Mily Lawrence MD PCP - General Internal Medicine 03/09/19 Ralf Gastelum MD 300 [facility] [address] [place] [address] Specialist Cardiovascular Disease 06/08/22 Gretchen Juan MD 175 [facility] 300 [place] [address] Surgeon Neurosurgery 02/13/23 Katherine Snow PA-C 175 [facility] 300 [place] [address] Specialist Neurosurgery 02/13/23 Per Leahy PA-C 175 [facility] 300 [place] [address] Specialist Neurosurgery 02/13/23 documented as of this encounter
--- OUTSIDE RECORDS SUMMARY | 2024-12-03 14:07 | XMS_ITS | Encounter Summary ---
Author Organization [facility] Address [address] [place] [address] Care Team Providers Care Management Trainee Marketing Name Role Phone Mily Lawrence MD Primary Care Provider +[phone]- [phone] Ralf Gastelum MD Unavailable [phone] Gretchen Juan MD Unavailable [phone] Katherine Snow PA-C Unavailable [phone] Per Leahy PA-C Unavailable [phone] Encounter Details Date Type Department Care Team Description 07/21/2024 Hospital Medical Records [address] [place], [place] [address] [place] [address] Social History Tobacco Use Types Packs/Day Years [...] on filedocumented in this encounter Care Teams Management Trainee Marketing Relationship Specialty Start Date End Date Mily Lawrence MD PCP - General Internal Medicine 03/09/19 Ralf Gastelum MD 300 [facility] 154 [place] [address] Specialist Cardiovascular Disease 06/08/22 Gretchen Juan MD [address] [address] Surgeon Neurosurgery 02/13/23 Katherine Snow PA-C [address] [address] Specialist Neurosurgery 02/13/23 Per Leahy PA-C [address] [address] Specialist Neurosurgery 02/13/23 documented as of this encounter
--- OUTSIDE RECORDS SUMMARY | 2024-12-03 14:07 | XMS_ITS | Encounter Summary ---
Author Organization [facility] Address [address] [place] [address] Care Team Providers Care Meter Maintenance Person Name Role Phone Mily Lawrence MD Primary Care Provider +[phone]- [phone] Ralf Gastelum MD Unavailable [phone] Gretchen Juan MD Unavailable [phone] Katherine Snow PA-C Unavailable [phone] Per Leahy PA-C Unavailable [phone] Reason for Visit * Reason Onset Date Comments refill request 04/26/2022 Encounter Details Date Type Department Care Team Description 04/26/2022 Refill Internal Medicine - [address], [address] [place] [address] Mily Lawrence MD [address] [place] [phone] refill request Social History Tobacco Use [...] NO Patients current insurance carrier is: Payor: [employer] / [facility] / Product Type: HMO [id number] documented in this encounter Plan of Treatment Not on file documented as of this encounter Visit Diagnoses Not on filedocumented in this encounter Care Teams Meter Maintenance Person Relationship Specialty Start Date End Date Mily Lawrence MD PCP - General Internal Medicine 03/09/19 Ralf Gastelum MD 300 [facility] 154 [place] [address] Specialist Cardiovascular Disease 06/08/22 Gretchen Juan MD [address] [address] Surgeon Neurosurgery 02/13/23 Katherine Snow PA-C [address] [address] Specialist Neurosurgery 02/13/23 Per Leahy PA-C [address] [address] Specialist Neurosurgery 02/13/23 documented as of this encounter
--- OUTSIDE RECORDS SUMMARY | 2024-12-03 14:07 | XMS_ITS | Encounter Summary ---
Author Organization [facility] Address [address] [place] [address] Care Team Providers Care Electric Pile Driver Operator Name Role Phone Mily Lawrence MD Primary Care Provider +[phone]- [phone] Ralf Gastelum MD Unavailable [phone] Gretchen Juan MD Unavailable [phone] Katherine Snow PA-C Unavailable [phone] Per Leahy PA-C Unavailable [phone] Reason for Visit * Reason Onset Date Comments Imaging Review 12/11/2023 R shoulder MRI Encounter Details Date Type Department Care Team Description 12/11/2023 Telephone [facility] [address] [place] [phone] Salma Elizalde APRN Imaging Review (R [...] on filedocumented in this encounter Care Teams Electric Pile Driver Operator Relationship Specialty Start Date End Date Mily Lawrence MD PCP - General Internal Medicine 03/09/19 Ralf Gastelum MD 300 [facility] [address] [place] [address] Specialist Cardiovascular Disease 06/08/22 Gretchen Juan MD 175 [facility] 300 [place] [address] Surgeon Neurosurgery 02/13/23 Katherine Snow PA-C 175 [facility] 300 [place] [address] Specialist Neurosurgery 02/13/23 Per Leahy PA-C 175 [facility] 300 [place] [address] Specialist Neurosurgery 02/13/23 documented as of this encounter
--- OUTSIDE RECORDS SUMMARY | 2024-12-03 14:07 | XMS_ITS | Encounter Summary ---
Author Organization [facility] Address [address] [place] [address] Care Team Providers Care Band Splicer Name Role Phone Mily Lawrence MD Primary Care Provider +1 [phone] Ralf Gastelum MD Unavailable [phone] Gretchen Juan MD Unavailable [phone] Katherine Snow PA-C Unavailable [phone] Per Leahy PA-C Unavailable [phone] Encounter Details Date Type Department Care Team Description 07/16/2023 Administrative Assistant Report Medical Records [address] [place] [address] Florina Perla MD Social History Tobacco Use [...] on filedocumented in this encounter Care Teams Band Splicer Relationship Specialty Start Date End Date Mily Lawrence MD PCP - General Internal Medicine 03/09/19 Ralf Gastelum MD 300 [facility] [address] [place] [address] Specialist Cardiovascular Disease 06/08/22 Gretchen Juan MD 175 [facility] 300 [place] [address] Surgeon Neurosurgery 02/13/23 Katherine Snow PA-C 175 [facility] 300 [place] [address] Specialist Neurosurgery 02/13/23 Per Leahy PA-C 175 [facility] 300 [place] [address] Specialist Neurosurgery 02/13/23 documented as of this encounter
--- OUTSIDE RECORDS SUMMARY | 2024-12-03 14:07 | XMS_ITS | Encounter Summary ---
Author Organization [facility] Address [address] [place] [address] Care Team Providers Care Human Resource Consultant Name Role Phone Mily Lawrence MD Primary Care Provider +1- [phone] Ralf Gastelum MD Unavailable [phone] Gretchen Juan MD Unavailable [phone] Katherine Snow PA-C Unavailable [phone] Per Leahy PA-C Unavailable [phone] Encounter Details Date Type Department Care Team Description 06/07/2022 SCAN Cardio P[facility] [address] [place] [address] Abstract, Provider Social History Tobacco Use Types [...] in this encounter Care Teams Human Resource Consultant Relationship Specialty Start Date End Date Mily Lawrence MD PCP - General Internal Medicine 03/09/19 Ralf Gastelum MD 300 [facility] [address] [place] [address] Specialist Cardiovascular Disease 06/08/22 Gretchen Juan MD 175 [facility] 300 [place] [address] Surgeon Neurosurgery 02/13/23 Katherine Snow PA-C 175 [facility] 300 [place] [address] Specialist Neurosurgery 02/13/23 Per Leahy PA-C 175 [facility] 300 [place] [address] Specialist Neurosurgery 02/13/23 documented as of this encounter
--- OUTSIDE RECORDS SUMMARY | 2024-12-03 14:07 | XMS_ITS | Encounter Summary ---
Author Organization [facility] Address [address] [place] [address] Care Team Providers Care Supervisor Beehive Kiln Name Role Phone Mily Lawrence MD Primary Care Provider +1 [phone] Ralf Gastelum MD Unavailable [phone] Gretchen Juan MD Unavailable [phone] Katherine Snow PA-C Unavailable [phone] Per Leahy PA-C Unavailable [phone] Encounter Details Date Type Department Care Team Description 10/30/2023 Orders Only Medical Records [address] [place] [address] Mily Lawrence MD [address] [place] [phone] Social History Tobacco Use Types Packs/Day [...] filedocumented in this encounter Care Teams Supervisor Beehive Kiln Relationship Specialty Start Date End Date Mily Lawrence MD PCP - General Internal Medicine 03/09/19 Ralf Gastelum MD 300 [facility] [address] [place] [address] Specialist Cardiovascular Disease 06/08/22 Gretchen Juan MD [address] [address] Surgeon Neurosurgery 02/13/23 Katherine Snow PA-C [address] [address] Specialist Neurosurgery 02/13/23 Per Leahy PA-C [address] [address] Specialist Neurosurgery 02/13/23 documented as of this encounter
--- OUTSIDE RECORDS SUMMARY | 2024-12-03 14:07 | XMS_ITS | Encounter Summary ---
Author Organization [facility] Address [address] [place] [address] Care Team Providers Care Perinatal Instructor Name Role Phone Mily Lawrence MD Primary Care Provider Ralf Gastelum MD Unavailable [phone] Gretchen Juan MD Unavailable [phone] Katherine Snow PA-C Unavailable [phone] Per Leahy PA-C Unavailable [phone] Reason for Visit * Reason Onset Date Comments preop exam 06/25/2024 Encounter Details Date Type Department Care Team Description 06/25/2024 Telephone Cardio PVC POC [address] [id number] Ralf Gastelum MD 300 [facility] 154 [place], [place] [phone] preop exam Social History Tobacco Use Types [...] testing. It is being faxed over to [phone]. * Telephone Encounter - Lucia Ahn - [...] calling back, she can be reached at [phone]. * Telephone Encounter - Suhail Cox RN [...] on filedocumented in this encounter Care Teams Perinatal Instructor Relationship Specialty Start Date End Date Mily Lawrence MD PCP - General Internal Medicine 03/09/19 Ralf Gastelum MD 300 [facility] [address] [place] [address] Specialist Cardiovascular Disease 06/08/22 Grethcen Juan MD 175 [facility] 300 [place] [address] Surgeon Neurosurgery 02/13/23 Katherine Snow PA-C [address] [address] Specialist Neurosurgery 02/13/23 Per Leahy PA-C 175 [facility] 300 [place] [address] Specialist Neurosurgery 02/13/23 documented as of this encounter
--- OUTSIDE RECORDS SUMMARY | 2024-12-03 14:07 | XMS_ITS | Encounter Summary ---
Author Organization [facility] Address [address] [place] [address] Care Team Providers Care Fire Safety Inspector Name Role Phone Mily Lawrence MD Primary Care Provider Ralf Gastelum MD Unavailable [phone] Gretchen Juan MD Unavailable [phone] Katherine Snow PA-C Unavailable [phone] Per Leahy PA-C Unavailable [phone] Reason for Visit * Reason Onset Date Comments Form 01/02/2024 Encounter Details Date Type Department Care Team Description 01/02/2024 Telephone [facility] Medical [facility] [address] [address] Brian Ferrari MD [address] [address] Form Social History Tobacco Use Types Packs/Day [...] PM EDT I faxed the form to [facility] * Telephone Encounter - Sussy Mcgill [...] questions and/or when item(s) are available to seed cone picker: [phone]. Thanks, DH documented in this encounter Plan of Treatment Not on file documented as of this encounter Visit Diagnoses Not on filedocumented in this encounter Care Teams Fire Safety Inspector Relationship Specialty Start Date End Date Mily Lawrence MD PCP - General Internal Medicine 03/09/19 Ralf Gastelum MD [address] [place] [address] Specialist Cardiovascular Disease 06/08/22 Gretchen Juan MD [address] [id number] Surgeon Neurosurgery 02/13/23 Katherine Snow PA-C [address] [address] Specialist Neurosurgery 02/13/23 Per Leahy PA-C 175 [facility] [address] [place] [address] Specialist Neurosurgery 02/13/23 documented as of this encounter
--- OUTSIDE RECORDS SUMMARY | 2024-12-03 14:07 | XMS_ITS | Encounter Summary ---
Author Organization [facility] Address [address] [place] [address] Care Team Providers Care Assistant Golf Coach Name Role Phone Mily Lawrence MD Primary Care Provider +[phone] Ralf Gastelum MD Unavailable [phone] Gretchen Juan MD Unavailable [phone] Katherine Snow PA-C Unavailable [phone] Per Leahy PA-C Unavailable [phone] Reason for Visit * Reason Onset Date Comments Medication 02/27/2024 [facility] Encounter Details Date Type Department Care Team Description 02/27/2024 Telephone Internal Medicine - [address], [address] [place] [address] Mily Lawrence MD [address] [place] [phone] Medication (Stay with [facility] St/Not Isa) Social History Tobacco Use [...] regarding pharmacies and would like tostay with [facility] on [address] Please keep patient's scripts at [facility] - [address] [place] [address] * Telephone Encounter - Sharmila Campbell - 02/27/2024 3:56 PM EDT Faxing waiting on confirmation * Telephone Encounter - Brenda Kearney - 02/27/2024 11:27 AM EDT Received call from Nely requested updated medlist and scrpits. Patient was seen on 02/06/24 during visited reported pharmacy will need new scripts and med list. Fax to: [phone] documented in this encounter Plan of Treatment Not on file documented as of this encounter Visit Diagnoses Not on filedocumented in this encounter Care Teams Assistant Golf Coach Relationship Specialty Start Date End Date Mily Lawrence MD PCP - General Internal Medicine 03/09/19 Ralf Gastelum MD [address] [place] [address] Specialist Cardiovascular Disease 06/08/22 Gretchen Juan MD [address] [id number] Surgeon Neurosurgery 02/13/23 Katherine Snow PA-C [address] [address] Specialist Neurosurgery 02/13/23 Per Leahy PA-C [address] [address] Specialist Neurosurgery 02/13/23 documented as of this encounter
--- OUTSIDE RECORDS SUMMARY | 2024-12-03 14:07 | XMS_ITS | Encounter Summary ---
Author Organization [facility] Address [address] [place] [address] Care Team Providers Care Chief Risk Officer Name Role Phone Mily Lawrence MD Primary Care Provider +1 [phone] Ralf Gastelum MD Unavailable [phone] Gretchen Juan MD Unavailable [phone] Katherine Snow PA-C Unavailable [phone] Per Leahy PA-C Unavailable [phone] Reason for Visit * Reason Comments E-prescribe Rx Request Encounter Details Date Type Department Care Team Description 07/28/2020 [facility] Internal Medicine - [address], [address] [place] [address] Mily Lawrence MD [address] [place] [phone] E-prescribe Rx Request Social History Tobacco [...] filedocumented in this encounter Care Teams Chief Risk Officer Relationship Specialty Start Date End Date Mily Lawrence MD PCP - General Internal Medicine 03/09/19 Ralf Gastelum MD [address] [place] [address] Specialist Cardiovascular Disease 06/08/22 Gretchen Juan MD [address] [address] Surgeon Neurosurgery 02/13/23 Katherine Snow PA-C [address] [address] Specialist Neurosurgery 02/13/23 Per Leahy PA-C 175 [facility] [address] [place] [address] Specialist Neurosurgery 02/13/23 documented as of this encounter
--- OUTSIDE RECORDS SUMMARY | 2024-12-03 14:07 | XMS_ITS | Encounter Summary ---
Author Organization [facility] Address [address] [place] [address] Care Team Providers Care Gas Engine Operator Compressors Name Role Phone Mily Lawrence MD Primary Care Provider +1 [phone] Ralf Gastelum MD Unavailable [phone] Gretchen Juan MD Unavailable [phone] Katherine Snow PA-C Unavailable [phone] Per Leahy PA-C Unavailable [phone] Encounter Details Date Type Department Care Team Description 01/28/2024 Automotive Heavy Mechanic Report Medical Records [address] [place] [address] Sravanthi Doss Social History Tobacco Use Types [...] on filedocumented in this encounter Care Teams Gas Engine Operator Compressors Relationship Specialty Start Date End Date Mily Lawrence MD PCP - General Internal Medicine 03/09/19 Ralf Gastelum MD 300 [facility] [address] [place] [address] Specialist Cardiovascular Disease 06/08/22 Gretchen Juan MD 175 [facility] 300 [place] [address] Surgeon Neurosurgery 02/13/23 Katherine Snow PA-C 175 [facility] 300 [place] [address] Specialist Neurosurgery 02/13/23 Per Leahy PA-C 175 [facility] 300 [place] [address] Specialist Neurosurgery 02/13/23 documented as of this encounter
--- OUTSIDE RECORDS SUMMARY | 2024-12-03 14:07 | XMS_ITS | Encounter Summary ---
Author Organization [facility] Address [address] [place] [address] Care Team Providers Care Personnel Supervisor Name Role Phone Mily Lawrence MD Primary Care Provider [phone] Ralf Gastelum MD Unavailable [phone] Gretchen Juan MD Unavailable [phone] Katherine Snow PA-C Unavailable [phone] ePr Leahy PA-C Unavailable [phone] Reason for Visit * Reason Comments E-prescribe Rx Request Encounter Details Date Type Department Care Team Description 05/09/2023 Refill [facility] [address] [address] Brian Ferrari MD [address] [place] [address] E-prescribe Rx Request Social History Tobacco Use [...] leg documented in this encounter Care Teams Personnel Supervisor Relationship Specialty Start Date End Date Mily Lawrence MD PCP - General Internal Medicine 03/09/19 Ralf Gastelum MD [address] [address] Specialist Cardiovascular Disease 06/08/22 Gretchen Juan MD [address] [address] Surgeon Neurosurgery 02/13/23 Katherine Snow PA-C [address] [address] Specialist Neurosurgery 02/13/23 Per Leahy PA-C [address] [address] Specialist Neurosurgery 02/13/23 documented as of this encounter
--- OUTSIDE RECORDS SUMMARY | 2024-12-03 14:07 | XMS_ITS | Encounter Summary ---
Author Organization [facility] Address [address] [place] [address] Care Team Providers Care Milking Machine Mechanic Name Role Phone Mily Lawrence MD Primary Care Provider Ralf Gastelum MD Unavailable [phone] Gretchen Juan MD Unavailable [phone] Katherine Snow PA-C Unavailable [phone] Per Leahy PA-C Unavailable [phone] Reason for Visit * Reason Onset Date Comments Surgery (Schedule) 11/25/2023 Encounter Details Date Type Department Care Team Description 11/25/2023 Telephone [facility] [address] [address] Brian Ferrari MD [address] [address] Surgery (Schedule) Social History Tobacco Use Types [...] leg documented in this encounter Care Teams Milking Machine Mechanic Relationship Specialty Start Date End Date Mily Lawrence MD PCP - General Internal Medicine 03/09/19 Ralf Gastelum MD 300 [facility] [address] [place] [address] Specialist Cardiovascular Disease 06/08/22 Gretchen Juan MD [address] [address] Surgeon Neurosurgery 02/13/23 Katherine Snow PA-C [address] [address] Specialist Neurosurgery 02/13/23 Per Leahy PA-C [address] [address] Specialist Neurosurgery 02/13/23 documented as of this encounter
--- OUTSIDE RECORDS SUMMARY | 2024-12-03 14:07 | XMS_ITS | Encounter Summary ---
Author Organization [facility] Address [address] [place] [address] Care Team Providers Care Seamstress Fitter Name Role Phone Mily Lawrence MD Primary Care Provider +[phone]- [phone] Ralf Gastelum MD Unavailable [phone] Gretchen Juan MD Unavailable [phone] Katherine Snow PA-C Unavailable [phone] Per Leahy PA-C Unavailable [phone] Encounter Details Date Type Department Care Team Description 09/23/2020 Orders Only Medical Records [address] [place] [address] Mily Lawrence MD [address] [place] [phone] Breast mass, left (Primary Dx) Social [...] Mily Lawrence MD ULTRASOUND Performing Organization Address City/State/[facility] Co de Phone Number [address] * OUTSIDE ULTRASOUND (09/22/2020) Mily Lawrence MD RADIOLOGY * OUTSIDE MAMMO (09/22/2020) Mily Lawrence MD RADIOLOGY documented in this encounter Visit Diagnoses Diagnosis Breast mass, left- Primary Lump or mass in breast documented in this encounter Care Teams Seamstress Fitter Relationship Specialty Start Date End Date Mily Lawrence MD PCP - General Internal Medicine 03/09/19 Ralf Gastelum MD 300 [facility] [address] [place] [address] Specialist Cardiovascular Disease 06/08/22 Gretchen Juan MD 175 [facility] 300 [place] [address] Surgeon Neurosurgery 02/13/23 Katherine Snow PA-C 175 [facility] 300 [place] [address] Specialist Neurosurgery 02/13/23 Per Leahy PA-C 175 [facility] 300 [place] [address] Specialist Neurosurgery 02/13/23 documented as of this encounter
--- OUTSIDE RECORDS SUMMARY | 2024-12-03 14:07 | XMS_ITS | Encounter Summary ---
Author Organization [facility] Address [address] [place] [address] Care Team Providers Care Sales And Merchandising Representative Name Role Phone Mily Lawrence MD Primary Care Provider [phone] [phone] Ralf Gastelum MD Unavailable [phone] Gretchen Juan MD Unavailable [phone] Katherine Snow PA-C Unavailable [phone] Per Leahy PA-C Unavailable [phone] Encounter Details Date Type Department Care Team Description 02/15/2022 Release of Information Medical Records [address] [place] [address] Abstract, Provider Social History Tobacco Use Types [...] filedocumented in this encounter Care Teams Sales And Merchandising Representative Relationship Specialty Start Date End Date Mily Lawrence MD PCP - General Internal Medicine 03/09/19 Ralf Gastelum MD 300 [facility] [address] [place] [address] Specialist Cardiovascular Disease 06/08/22 Gretchen Juan MD 175 [facility] 300 [place] [address] Surgeon Neurosurgery 02/13/23 Katherine Snow PA-C 175 [facility] 300 [place] [address] Specialist Neurosurgery 02/13/23 Per Leahy PA-C 175 [facility] 300 [place] [address] Specialist Neurosurgery 02/13/23 documented as of this encounter
--- OUTSIDE RECORDS SUMMARY | 2024-12-03 14:07 | XMS_ITS | Encounter Summary ---
Author Organization [facility] Address [address] [place] [address] Care Team Providers Care Lead Business Systems Analyst Name Role Phone Mily Lawrence MD Primary Care Provider [phone] Ralf Gastelum MD Unavailable [phone] Gretchen Juan MD Unavailable [phone] Katherine Snow PA-C Unavailable [phone] Per Leahy PA-C Unavailable [phone] Encounter Details Date Type Department Care Team Description 06/04/2022 [facility]. [facility] [address] [place] [address] Md Tiki Social History Tobacco Use Types [...] on filedocumented in this encounter Care Teams Lead Business Systems Analyst Relationship Specialty Start Date End Date Mily Lawrence MD PCP - General Internal Medicine 03/09/19 Ralf Gastelum MD 300 [facility] [address] [place] [address] Specialist Cardiovascular Disease 06/08/22 Gretchen Juan MD 175 [facility] 300 [place] [address] Surgeon Neurosurgery 02/13/23 Katherine Snow PA-C [address] [address] Specialist Neurosurgery 02/13/23 Per Leahy PA-C [address] [address] Specialist Neurosurgery 02/13/23 documented as of this encounter
--- OUTSIDE RECORDS SUMMARY | 2024-12-03 14:07 | XMS_ITS | Encounter Summary ---
Author Organization [facility] Address [address] [place] [address] Care Team Providers Care Clinical Geneticist Name Role Phone Mily Lawrence MD Primary Care Provider Ralf Gastelum MD Unavailable [phone] Gretchen Juan MD Unavailable [phone] Katherine Snow PA-C Unavailable [phone] Per Leahy PA-C Unavailable [phone] Reason for Visit * Reason Onset Date Comments Medication 01/27/2024 Encounter Details Date Type Department Care Team Description 01/27/2024 Telephone [facility] [address] [phone] Brian Ferrari MD [address] [address] Medication Social History Tobacco Use Types Packs/Day [...] Telephone Encounter - Sussy Mcgill NP - 01/27/2024 3:22 PM EDT All set * Telephone Encounter - Sussy Mcgill NP - 01/27/2024 3:20 PM EDT Sanjuanita will send that in! * Telephone Encounter - Sussy Mcgill NP - 01/27/2024 3:12 PM EDT It doesn't look like she has not had surgery yet, do we know what she needs the pre meds for? If itis for a cleaning/dental clearance she should be all set without them unless specified by Dr. Ferrari * Telephone Encounter - Johana Reis - 01/27/2024 2:44 PM EDT Hello- Patient looking for pre med for dentist tp be called into her pharmacy Johana Landry documented in this encounter Plan of Treatment Not on file documented as of this encounter Visit Diagnoses Not on filedocumented in this encounter Care Teams Clinical Geneticist Relationship Specialty Start Date End Date Mily Lawrence MD PCP - General Internal Medicine 03/09/19 Ralf Gastelum MD 300 [facility] [address] [place] [address] Specialist Cardiovascular Disease 06/08/22 Gretchen Juan MD 175 [facility] 300 [place] [address] Surgeon Neurosurgery 02/13/23 Katherine Snow PA-C 175 [facility] 300 [place] [address] Specialist Neurosurgery 02/13/23 Per Leahy PA-C 175 [facility] 300 [place] [address] Specialist Neurosurgery 02/13/23 documented as of this encounter
--- OUTSIDE RECORDS SUMMARY | 2024-12-03 14:07 | XMS_ITS | Encounter Summary ---
Author Organization [facility] Address [address] [place] [address] Care Team Providers Care Drafter Mechanical Name Role Phone Mily Lawrence MD Primary Care Provider +[phone]- [phone] Ralf Gastelum MD Unavailable [phone] Gretchen Juan MD Unavailable [phone] Katherine Snow PA-C Unavailable [phone] Per Leahy PA-C Unavailable [phone] Reason for Visit * Reason Onset Date Comments injection 01/06/2024 R US GH injectio n Encounter Details Date Type Department Care Team Description 01/06/2024 Telephone [facility] [address] [place] [phone] Salma Elizalde APRN injection ( R [...] 01/07/2024 10:03 AM EDT Called pt at [phone], no answer. Unable to leave , mailbox full. If pt calls back, it is okay to schedule her for next available US guided inj with Dr Kenney. documented in this encounter Plan of Treatment Not on file documented as of this encounter Visit Diagnoses Not on filedocumented in this encounter Care Teams Drafter Mechanical Relationship Specialty Start Date End Date Mily Lawrence MD PCP - General Internal Medicine 03/09/19 Ralf Gastelum MD 300 [facility] [address] [place] [address] Specialist Cardiovascular Disease 06/08/22 Gretchen Juan MD [address] [address] Surgeon Neurosurgery 02/13/23 Katherine Snow PA-C 175 [facility] 300 [place] [address] Specialist Neurosurgery 02/13/23 Per Leahy PA-C 175 [facility] 300 [place] [address] Specialist Neurosurgery 02/13/23 documented as of this encounter
--- OUTSIDE RECORDS SUMMARY | 2024-12-03 14:07 | XMS_ITS | Encounter Summary ---
Author Organization [facility] Address [address] [place] [address] Care Team Providers Care Health Communications Specialist Name Role Phone Mily Lawrence MD Primary Care Provider +1 [phone] Ralf Gastelum MD Unavailable [phone] Gretchen Juan MD Unavailable [phone] Katherine Snow PA-C Unavailable [phone] Per Leahy PA-C Unavailable [phone] Encounter Details Date Type Department Care Team Description 12/02/2023 Merchant Mill Utility Worker Report Medical Records [address] [place] [address] Evelio Smith Social History Tobacco Use Types [...] filedocumented in this encounter Care Teams Health Communications Specialist Relationship Specialty Start Date End Date Mily Lawrence MD PCP - General Internal Medicine 03/09/19 Ralf Gastelum MD 300 [facility] [address] [place] [address] Specialist Cardiovascular Disease 06/08/22 Gretchen Juan MD 175 [facility] 300 [place] [address] Surgeon Neurosurgery 02/13/23 Katherine Snow PA-C 175 [facility] 300 [place] [address] Specialist Neurosurgery 02/13/23 Per Leahy PA-C 175 [facility] 300 [place] [address] Specialist Neurosurgery 02/13/23 documented as of this encounter
--- OUTSIDE RECORDS SUMMARY | 2024-12-03 14:08 | XMS_ITS | Encounter Summary ---
Author Organization [facility] Address [address] [place] [address] Care Team Providers Care Talking Books Library Clerk Name Role Phone Mily Lawrence MD Primary Care Provider +[phone] Ralf Gastelum MD Unavailable [phone] Gretchen Juan MD Unavailable [phone] Katherine Snow PA-C Unavailable [phone] Per Leahy PA-C Unavailable [phone] Encounter Details Date Type Department Care Team Description 03/20/2024 Orders Only Medical Records [address] [place] [address] Florina Perla MD Social History Tobacco Use [...] on filedocumented in this encounter Care Teams Talking Books Library Clerk Relationship Specialty Start Date End Date Mily Lawrence MD PCP - General Internal Medicine 03/09/19 Ralf Gastelum MD 300 [facility] 154 [place] [address] Specialist Cardiovascular Disease 06/08/22 Gretchen Juan MD [address] [address] Surgeon Neurosurgery 02/13/23 Katherine Snow PA-C [address] [address] Specialist Neurosurgery 02/13/23 Per Leahy PA-C [address] [address] Specialist Neurosurgery 02/13/23 documented as of this encounter
--- OUTSIDE RECORDS SUMMARY | 2024-12-03 14:08 | XMS_ITS | Encounter Summary ---
Author Organization [facility] Address [address] [place] [address] Care Team Providers Care Integrated Circuit Ic Layout Designer Name Role Phone Mily Lawrence MD Primary Care Provider +[phone] Ralf Gastelum MD Unavailable [phone] Gretchen Juan MD Unavailable [phone] Katherine Snow PA-C Unavailable [phone] Per Leahy PA-C Unavailable [phone] Reason for Visit * Reason Comments E-prescribe Rx Request Encounter Details Date Type Department Care Team Description 04/05/2021 Refill Internal Medicine - [address], [address] [place] [address] Mily Lawrence MD [address] [place] [phone] E-prescribe Rx Request Social History Tobacco [...] on filedocumented in this encounter Care Teams Integrated Circuit Ic Layout Designer Relationship Specialty Start Date End Date Mily Lawrence MD PCP - General Internal Medicine 03/09/19 Ralf Gastelum MD 300 [facility] 154 [place] [address] Specialist Cardiovascular Disease 06/08/22 Gretchen Juan MD [address] [address] Surgeon Neurosurgery 02/13/23 Katherine Snow PA-C [address] [address] Specialist Neurosurgery 02/13/23 Per Leahy PA-C [address] [address] Specialist Neurosurgery 02/13/23 documented as of this encounter
--- OUTSIDE RECORDS SUMMARY | 2024-12-03 14:08 | XMS_ITS | Encounter Summary ---
Author Organization [facility] Address [address] [place] [address] Care Team Providers Care Heel Caser Name Role Phone Mily Lawrence MD Primary Care Provider +[phone] Ralf Gastelum MD Unavailable [phone] Gretchen Juan MD Unavailable [phone] Katherine Snow PA-C Unavailable [phone] Per Leahy PA-C Unavailable [phone] Reason for Visit * Reason Comments E-prescribe Rx Request Encounter Details Date Type Department Care Team Description 03/24/2021 Refill Internal Medicine - [address], [address] [place] [address] Mily Lawrence MD [address] [place] [phone] E-prescribe Rx Request Social History Tobacco [...] on filedocumented in this encounter Care Teams Heel Caser Relationship Specialty Start Date End Date Mily Lawrence MD PCP - General Internal Medicine 03/09/19 Ralf Gastelum MD [address] [place] [address] Specialist Cardiovascular Disease 06/08/22 Gretchen Juan MD 175 [facility] 300 [place] [address] Surgeon Neurosurgery 02/13/23 Katherine Snow PA-C [address] [address] Specialist Neurosurgery 02/13/23 Per Leahy PA-C 175 [facility] 300 [place] [address] Specialist Neurosurgery 02/13/23 documented as of this encounter
--- OUTSIDE RECORDS SUMMARY | 2024-12-03 14:08 | XMS_ITS | Encounter Summary ---
Author Organization [facility] Address [address] [place] [address] Care Team Providers Care Community Administrator Name Role Phone Mily Lawrence MD Primary Care Provider +[phone] Ralf Gastelum MD Unavailable [phone] Gretchen Juan MD Unavailable [phone] Katherine Snow PA-C Unavailable [phone] Per Leahy PA-C Unavailable [phone] Encounter Details Date Type Department Care Team Description 08/21/2022 [facility] Internal Medicine [address], [address] [place] [address] Mily Lawrence MD [address] [place] [phone] Social History Tobacco Use Types Packs/Day [...] on filedocumented in this encounter Care Teams Community Administrator Relationship Specialty Start Date End Date Mily Lawrence MD PCP - General Internal Medicine 03/09/19 Ralf Gastelum MD 300 [facility] 154 [place] [address] Specialist Cardiovascular Disease 06/08/22 Gretchen Juan MD [address] [address] Surgeon Neurosurgery 02/13/23 Katherine Snow PA-C [address] [address] Specialist Neurosurgery 02/13/23 Per Leahy PA-C [address] [address] Specialist Neurosurgery 02/13/23 documented as of this encounter
--- OUTSIDE RECORDS SUMMARY | 2024-12-03 14:08 | XMS_ITS | Encounter Summary ---
Author Organization [facility] Address [address] [place] [address] Care Team Providers Care Scallop Raker Name Role Phone Mily Lawrence MD Primary Care Provider [phone] Ralf Gastelum MD Unavailable [phone] Gretchen Juan MD Unavailable [phone] Katherine Snow PA-C Unavailable [phone] Per Leahy PA-C Unavailable [phone] Reason for Visit * Reason Comments E-prescribe Rx Request Encounter Details Date Type Department Care Team Description 01/30/2021 Refill Internal Medicine [address], [address] [place] [address] Mily Lawrence MD [address] [place] [phone] E-prescribe Rx Request Social History Tobacco [...] on filedocumented in this encounter Care Teams Scallop Raker Relationship Specialty Start Date End Date Mily Lawrence MD PCP - General Internal Medicine 03/09/19 Ralf Gastelum MD 300 [facility] [address] [place] [address] Specialist Cardiovascular Disease 06/08/22 Gretchen Juan MD 175 [facility] 300 [place] [address] Surgeon Neurosurgery 02/13/23 Katherine Snow PA-C 175 [facility] 300 [place] [address] Specialist Neurosurgery 02/13/23 Per Leahy PA-C 175 [facility] 300 [place] [address] Specialist Neurosurgery 02/13/23 documented as of this encounter
--- OUTSIDE RECORDS SUMMARY | 2024-12-03 14:08 | XMS_ITS | Encounter Summary ---
Author Organization [facility] Address [address] [place] [address] Care Team Providers Care Preschool Teacher Assistant Name Role Phone Mily Lawrence MD Primary Care Provider [phone] Ralf Gastelum MD Unavailable [phone] Gretchen Juan MD Unavailable [phone] Katherine Snow PA-C Unavailable [phone] Per Leahy PA-C Unavailable [phone] Encounter Details Date Type Department Care Team Description 03/03/2024 Hospital Medical Records [address] [place] [address] Brian Ferrari MD [address] [place] [address] Social History Tobacco Use Types Packs/Day Years [...] on filedocumented in this encounter Care Teams Preschool Teacher Assistant Relationship Specialty Start Date End Date Mily Lawrence MD PCP - General Internal Medicine 03/09/19 Ralf Gastelum MD 300 [facility] [address] [place] [address] Specialist Cardiovascular Disease 06/08/22 Gretchen Juan MD 175 [facility] 300 [place] [address] Surgeon Neurosurgery 02/13/23 Katherine Snow PA-C 175 [facility] 300 [place] [address] Specialist Neurosurgery 02/13/23 Per Leahy PA-C 175 [facility] 300 [place] [address] Specialist Neurosurgery 02/13/23 documented as of this encounter
--- OUTSIDE RECORDS SUMMARY | 2024-12-03 14:08 | XMS_ITS | Encounter Summary ---
Author Organization [facility] Address [address] [place] [address] Care Team Providers Care Guest Room Attendant Name Role Phone Mily Lawrence MD Primary Care Provider [phone] Ralf Gastelum MD Unavailable [phone] Gretchen Juan MD Unavailable [phone] Katherine Snow PA-C Unavailable [phone] Per Leahy PA-C Unavailable [phone] Reason for Visit * Reason Onset Date Comments refill request 03/19/2024 Encounter Details Date Type Department Care Team Description 03/19/2024 Refill Internal Medicine - [address], [address] [place] [address] Mily Lawrence MD [address] [place] [phone] refill request Social History Tobacco Use [...] Telephone Encounter - Katherine Hernandez M.A. - 03/19/2024 2:46 PM EDT Jadon 02/06/2024 06/12/2024 Lab Results Component Value Date NA 142 02/06/2024 K 4.6 02/06/2024 CO2 31 02/06/2024 CL 106 02/06/2024 BUN 21 02/06/2024 CREAT 0.84 02/06/2024 GLU 93 02/06/2024 CA 9.8 02/06/2024 GFR 82 02/06/2024 * Telephone Encounter - Kyra Gleason - 03/19/2024 10:01 AM EDT Jadon 02/06/2024 06/12/2024 Now [facility] - pharmacy would like to fill by this weekend - they were just notified documented in this encounter Plan of Treatment Not on file documented as of this encounter Visit Diagnoses Not on filedocumented in this encounter Care Teams Guest Room Attendant Relationship Specialty Start Date End Date Mily Lawrence MD PCP - General Internal Medicine 03/09/19 Ralf Gastelum MD 300 [facility] [address] [place] [address] Specialist Cardiovascular Disease 06/08/22 Gretchen Juan MD 175 [facility] 300 [place] [address] Surgeon Neurosurgery 02/13/23 Katherine Snow PA-C [address] [address] Specialist Neurosurgery 02/13/23 Per Leahy PA-C [address] [address] Specialist Neurosurgery 02/13/23 documented as of this encounter
--- OUTSIDE RECORDS SUMMARY | 2024-12-03 14:08 | XMS_ITS | Encounter Summary ---
Author Organization [facility] Address [address] [place] [address] Care Team Providers Care Baseball Player Name Role Phone Mily Lawrence MD Primary Care Provider Ralf Gastelum MD Unavailable [phone] Gretchen Juan MD Unavailable [phone] Katherine Snow PA-C Unavailable [phone] Per Leahy PA-C Unavailable [phone] Reason for Visit * Reason Onset Date Comments DME Request 03/13/2024 Encounter Details Date Type Department Care Team Description 03/13/2024 Telephone [facility] Medical [facility] [address] [address] Ralf Phoenix DPM [address] [address] DME Request Social History Tobacco Use Types [...] a brace before if possible. Please advise: [phone]. Thanks, DH documented in this encounter Plan of Treatment Not on file documented as of this encounter Visit Diagnoses Not on filedocumented in this encounter Care Teams Baseball Player Relationship Specialty Start Date End Date Mily Lawrence MD PCP - General Internal Medicine 03/09/19 Ralf Gastelum MD 300 [facility] 154 [place] [address] Specialist Cardiovascular Disease 06/08/22 Gretchen Juan MD [address] [address] Surgeon Neurosurgery 02/13/23 Katherine Snow PA-C [address] [address] Specialist Neurosurgery 02/13/23 Per Leahy PA-C [address] [address] Specialist Neurosurgery 02/13/23 documented as of this encounter
[2024-12-03 14:11] VITALS: BP 140/80; PULSE 70; O2SAT 98; BMI 35.2
== END 2024-12-03 14:37 | disposition home or self-care (01) ==
PROVIDERS: PCP Internal Medicine; Visit Provider Internal Medicine Endocrinology, Diabetes & Metabolism
DX: D35.2 Benign neoplasm of pituitary gland (principal); L68.0 Hirsutism
CPT/HCPCS: 99213

== ENCOUNTER → 2024-12-03 14:00 | Outpatient (BNVA) | payer OTHER, SELFPAY | PROVIDERS: PCP Internal Medicine; Visit Provider Internal Medicine Endocrinology, Diabetes & Metabolism | DX: D35.2 Benign neoplasm of pituitary gland (principal); L68.0 Hirsutism | CPT/HCPCS: 99212 ==

== ENCOUNTER → 2024-12-26 17:09 | Outpatient (BNV) | payer OTHER, SELFPAY | PROVIDERS: PCP Internal Medicine; Visit Provider Radiology Diagnostic Radiology | DX: D35.2 Benign neoplasm of pituitary gland (principal) | CPT/HCPCS: 70553 ==

== ENCOUNTER 2024-12-26 17:16 | Outpatient (REF) | payer OTHER, SELFPAY ==
--- NOTE | ~2024-12-26 | MR_ITS ---
EXAMINATION: MR BRAIN/SELLA WITHOUT AND WITH CONTRAST CLINICAL INFORMATION: Benign neoplasm pituitary gland. Follow-up examination. Chapin's palsy, migraines. 69-year-old female. COMPARISON: 11/01/2023, 05/15/2022. MRI cervical 02/26/2024. TECHNIQUE: Multiplanar multisequence MR imaging of the brain/sella was done prior to and following the intravenous administration of 9 mL Gadavist. Standard department protocol was utilized. Examination performed on a 1.5 Ana Siemens high-field unit. FINDINGS: SELLA: There is mild infundibular deviation to the right. No infundibular thickening. There is a partial empty sella present indicating mild diaphragmatic sella incompetence. There is a stable nonenhancing round 3 x 3 x 3 mm cyst in the most left pituitary gland, unchanged. 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 There is no extension into the left cavernous sinus, or extension into the suprasellar cistern. The remaining pituitary gland is unremarkable in MR imaging appearance. Suprasellar structures appear normal. Cavernous carotid flow voids are normal. IMAGED BRAIN: There is no diffusion restriction. There is no intracranial hemorrhage, acute infarction, mass effect, or edema. Ventricles, sulci, and cisterns are normal in size and configuration for patient age. No shift of midline. There is no significant white matter abnormality. No abnormal intra or extra-axial enhancement is identified after the administration of contrast. No definite abnormal 7th nerve enhancement identified, although this exam was not tailored for 7th nerve evaluation. Midline structures appear normally formed. Posterior fossa structures appear normal. Cerebellar tonsils are appropriately located. Major flow voids are preserved within the skull base. The globes and orbital contents demonstrate no abnormalities. Paranasal sinuses are clear bilaterally. The mastoids and tympanic cavities are normally aerated. Extracranial soft tissues demonstrate a stable small 1.1 cm retention cyst in the right fossa of Rosenmuller. No suspicious bone marrow changes are evident. Atlantoaxial joint is normal. Stable cervical degenerative changes spanning C2-C5. No evidence of cord impingement. MR/MR head/brain wo/w con IMPRESSION: 1. 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 Differential includes cystic microadenoma although considered less likely given lack of peripheral enhancement. Partial empty sella with otherwise normal pituitary gland. 2. No evidence of intracranial hemorrhage, acute infarction, mass effect, edema, or abnormal enhancement. 3. Stable spondylosis of the superior cervical spine. Refer to the dedicated cervical MRI performed concurrently. Electronically signed by: Ihsan Nicholson MD 12/29/2024 08:33 AM EDT
[2024-12-26] MEDS: gadobutroL 10 ML VIAL IVPUSH (17:56)
== END 2024-12-26 17:17 | disposition home or self-care (01) ==
LOC: HO.MRI 17:16
PROVIDERS: PCP Internal Medicine; Visit Provider Internal Medicine Endocrinology, Diabetes & Metabolism
DX: D35.2 Benign neoplasm of pituitary gland (principal)
CPT/HCPCS: 70553; A9585

== ENCOUNTER 2025-01-20 10:59 | Outpatient (AMB) | payer OTHER, SELFPAY ==
--- NOTE | 2025-01-20 11:19 | MHC.AMNUTRGE ---
VS Expanded 01/20/25 11:29 02/03/25 12:25 Height 5 ft 4.6 in 5 ft 4.6 in Weight 188 lb 4.396 oz 188 lb BMI 31.7 31.7 Intake Visit Reasons: REASON FOR VISIT pcos Allergies Sulfa (Sulfonamide Antibiotics) Allergy (Mild, Verified 12/03/24 14:08) Hives adhesive tape Adverse Reaction (Mild, Verified 12/03/24 14:08) Rash Nutrition Presentation Details: Pt presents for MNT related to pituitary microadenoma , PCOS. Pt was referred by digital marketing lead Noted Pt has lost about 21 lbs since 11/2024, (about 3lbs wt loss per week). Pt reports working on diet modifications for weight loss including reducing red meats and fasting Pt reports weight at 209 lbs in 12/15 lbs, today at 188 lbs Pt uses a cane to walk for support Choosing dairy alternatives , working on switching to vegetarian meals and working on fasting for wt loss food frequency fruits: 0-1/d fish : 0-1/, egg 0-1/wk, poultry 2x/wk peanut butter 0-1/d beans/legumes: 1x/wk vegan cheese 1/d dairy:soy yogurts/almond milk Pt reports making own meals physical activity aqua therapy once a week walk the dog with cane MVI- reports taking vit B1, B6 and vit D Pt denies vomiting/diarrhea BS Monitoring Most Recent Diabetes Results: Creatinine 0.73 mg/dL (0.5-1.4) 12/01/24 Blood Urea Nitrogen 10 mg/dL (9-16) 12/01/24 Sodium 140 mmol/L (135-145) 12/01/24 Potassium 3.9 mmol/L (3.3-5.1) 12/01/24 Chloride 109 mmol/L (96-108) H 12/01/24 Carbon Dioxide 25 mmol/L (22-29) 12/01/24 Calcium 9.5 mg/dL (8.4-10.2) 12/01/24 AST 31 U/L (5-31) 12/01/24 ALT 23 U/L (0-31) 12/01/24 Total Protein 8.1 g/dL (6.5-8.0) H 12/01/24 Albumin 4.4 g/dL (3.5-5.0) 12/01/24 EXW-Wyllgkw-Pw.Jeor Equation Height: 5 ft 4.6 in Weight: 188 lb Resting Metabolic Rate: 1435.96 Calculated Activity Level: Mild Activity Calories Needed to Maintain Weight: 1974.45 Diagnosis Nutrition problem #1: food nutri know defi As related to (etiology) #1: lack of nutrit education As evidenced by (sign/symptom) #1: food recall (reduced protein intake while choosing plant sources of foods/low ney foods) [facility] Medical History (Updated 02/03/25 @ 12:28 by Kalani Patiño, RD, LDN) Radiculopathy Cervical radiculopathy at C7 Hirsutism Vitamin D deficiency Insomnia Depression with anxiety GERD (gastroesophageal reflux disease) HLD (hyperlipidemia) Obstructive sleep apnea Urinary incontinence Post-thrombotic syndrome Congestive heart failure (CHF) Degenerative disc disease, cervical Osteoarthritis Lumbosacral radiculitis Cervical post-laminectomy syndrome Brachial radiculitis Surgical History Hx of knee surgery H/O breast biopsy History of lumbar spinal fusion S/P laparoscopic surgery Hx of tubal ligation History of total knee replacement (TKR) Hx of neck surgery Hx of hand surgery Hx of colonoscopy Family History Mother Breast CA DM (diabetes mellitus) HTN (hypertension) Arthritis ESRD (end stage renal disease) Father Arthritis ESRD (end stage renal disease) Maternal Aunt Breast CA Social History Household Members: None Alcohol intake: current Alcohol intake frequency: a few times a week Patient Tobacco Use Status: Never used Tobacco Substance Use Type: Marijuana Assessment & Plan Assessment & Plan (1) Obesity: Code(s): E66.9 - Obesity, unspecified Category: Medical Plan Plan: to increase protein intake to goal 80 g /day , slow down rate of weight loss to 0.5-2 lbs less per week Goal weight 175 lbs in 3-5 m Wt: 85 Kg ( 02/12 ) Est kcal needs as per MSJ: 2000 (40% carb, 30% protein/fat) Est fluid needs as per 25-30 ml/d: 2600 Est prot per day as per 1 g/kg bw: 85 Recommend fiber intake : 8-10 g per day and gradually increase to 25-28 g per day for women and 35-38 g for men or as tolerated Recommend sodium intake per day : less than 2000 mg Educated patient on: ( R = reviewed V = verbalizes understanding N/R = needs review N/A = not applicable Food sources of carbohydrate, adequate serving sizes and its role in various health conditions: R V N/R Differences between complex carbohydrates a simple carbohydrates, role of fiber in diet: R Lean protein sources of foods: R Differences between types of fats and role in diet (mono on saturated fat fatty acids, saturated fatty acids, trans fats): R V N/R Food sources of sodium in salt and healthy modifications for heart health in kidney health: R V R/V Vitamins and minerals: R V N/R Healthy plate method concept: R Physical activity: Benefits a precaution: R V N/R Patient Instructions: Include a nutritional supplement a day consisting of 20-30 g of protein , have it as a snack once a day Work on having 3 meals per day and balancing meals with lean protein and whole grains see meal ideas as reference Coding Level of Care Code Nutr Indiv Intake (38450) Diagnoses Obesity E66.9 Time Spent (min) 30
[2025-01-20 11:29] VITALS: BMI 31.7
--- OUTSIDE RECORDS SUMMARY | 2025-01-20 13:14 | XMS_ITS | Encounter Summary ---
Author Organization [facility] Address [address] [place] [address] Care Team Providers Care Aix Architect Name Role Phone Mily Lawrence MD Primary Care Provider [phone] Ralf Gastelum MD Unavailable [phone] Gretchen Juan MD Unavailable [phone] Katherine Snow PA-C Unavailable [phone] Per Leahy PA-C Unavailable [phone] Reason for Visit * Reason Onset Date Comments TEST RESULTS 10/08/2019 Encounter Details Date Type Department Care Team Description 10/08/2019 Telephone Podiatry - [address] [id number] Yvonne Medina DPM TEST RESULTS Social History [...] performed: 09/30/19 Where was the test performed: [place] Who ordered this test?: Dr. Yvonne Medina [...] limb documented in this encounter Care Teams Aix Architect Relationship Specialty Start Date End Date Mily Lawrence MD PCP - General Internal Medicine 03/09/19 Ralf Gastelum MD 300 [facility] 154 [place] [address] Specialist Cardiovascular Disease 06/08/22 Gretchen Juan MD [address] [address] Surgeon Neurosurgery 02/13/23 Katherine Snow PA-C [address] [address] Specialist Neurosurgery 02/13/23 Per Leahy PA-C [address] [address] Specialist Neurosurgery 02/13/23 documented as of this encounter
--- OUTSIDE RECORDS SUMMARY | 2025-01-20 13:14 | XMS_ITS | Encounter Summary ---
Author Organization [facility] Address [address] [place] [address] Care Team Providers Care Manager Hi Name Role Phone Mily Lawrence MD Primary Care Provider [phone] Ralf Gastelum MD Unavailable [phone] Gretchen Juan MD Unavailable [phone] Katherine Snow PA-C Unavailable [phone] Per Leahy PA-C Unavailable [phone] Encounter Details Date Type Department Care Team Description 08/25/2019 Derrick Worker Well Service Report Medical Records [address] [place] [address] Evelio Smith Social History Tobacco Use Types [...] filedocumented in this encounter Care Teams Manager Hi Relationship Specialty Start Date End Date Mily Lawrence MD PCP - General Internal Medicine 03/09/19 Ralf Gastelum MD 300 [facility] [address] [place] [address] Specialist Cardiovascular Disease 06/08/22 Gretchen Juan MD 175 [facility] 300 [place] [address] Surgeon Neurosurgery 02/13/23 Katherine Snow PA-C 175 [facility] 300 [place] [address] Specialist Neurosurgery 02/13/23 Per Leahy PA-C 175 [facility] 300 [place] [address] Specialist Neurosurgery 02/13/23 documented as of this encounter
--- OUTSIDE RECORDS SUMMARY | 2025-01-20 13:14 | XMS_ITS | Encounter Summary ---
Author Organization [facility] Address [address] [place] [address] Care Team Providers Care Cisco Network Architect Name Role Phone Mily Lawrence MD Primary Care Provider [phone] Trey Mueller MD Primary Care Provider Unavaila ble Mily Lawrence MD Primary Care Provider [phone] Ralf Gastelum MD Unavailable [phone] Gretchen Juan MD Unavailable [phone] Katherine Snow PA-C Unavailable [phone] Per Lehay PA-C Unavailable [phone] Encounter Details Date Type Department Care Team Description 10/29/2018 Route Rider Supervisor Report Medical Records [address] [place] [address] Magdi Daniel MD [address] [place] [address] [address] [place] [address] Social History Tobacco Use Types Packs/Day Years [...] on filedocumented in this encounter Care Teams Cisco Network Architect Relationship Specialty Start Date End Date Mily Lawrence MD PCP - General Internal Medicine 03/13/17 01/01/19 Trey Mueller MD PCP - General Internal Medicine 01/02/19 03/08/19 Mily Lawrence MD PCP - General Internal Medicine 03/09/19 Ralf Gastelum MD 300 [facility] [address] [place] [address] Specialist Cardiovascular Disease 06/08/22 Gretchen Juan MD 175 [facility] 300 [place] [address] Surgeon Neurosurgery 02/13/23 Katherine Snow PA-C 175 [facility] 300 [place] [address] Specialist Neurosurgery 02/13/23 Per Leahy PA-C 175 [facility] 300 [place] [address] Specialist Neurosurgery 02/13/23 documented as of this encounter
--- OUTSIDE RECORDS SUMMARY | 2025-01-20 13:14 | XMS_ITS | Data Portability ---
Author Organization [facility], PAIN OFF[facility] Address [address] [facility] [place] [address] Care Team Providers Care Syrup Blender Name Role Phone MICHAEL HOOKER Primary Care Provider [facility]) OTHER Assessment Encounter Date Assessment Date [...] like a referral to Dr. Hayward in [place], [place] I recommend physical therapy with Anderson Murcia at the in [place], [place]. She will follow up in six [...] booked for the same. 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 [...] booked for the same. 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 Insurance approval needed. I have encouraged to??start physical therapy and discussed the importance of core strengthening. She si on [employer] and will call back after consulting with [...] 2022 023 HAYDEN Hayward MD, Oskar Garcia, [place], [address], 05:00:52 Procedures None recorded. Surgeries None recorded. Imaging None recorded. Medication Orders None recorded. Patient TargetsNo targets recorded. Patient Instructions Encounter Date Encounter Id Patient Instructions Last Modified By Organization Details Last Modified Time 01/24/2023 [id number] She was advised against bed rest lasting longer than four days and to continue activities as tolerated. [email or web address] Not available 01/30/2023 16:21:29 04/01/2023 [id number] physical therapy* HAYDEN Not available 10/13/2023 05:00:58 She was advised against bed rest lasting longer than four days and to continue activities as tolerated. [email or web address] Not available 04/05/2023 11:18:39 12/02/2023 [id number] She was advised against bed rest lasting longer than four days and to continue activities as tolerated. [email or web address] Not available 12/02/2023 14:52:52 03/27/2024 [id number] She was advised against bed rest lasting [...] ney spine No observ ation record ed. [facility] [address] [place] [address], [address], 01/24/2023 13:46:21 02/09/20 23 02/06/2023 MRI, cervi ney spine , w/o contr ast No observ ation record ed. [facility] [address] [place], [address], 02/11/2023 15:20:32 Result Notes None recorded. 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 , [address], [place], [address], [place] [facility] 6 08:55:36 Degeneration of cervical intervertebral disc 67114539 Lauryn grady MD [address] , [address], [place], [address], [place] [facility] 6 08:51:25 Cervical post-laminecto my syndrome 104691271 Active Evelio grady MD [address] , [address], [facility] [place], [address], [place] [facility] 6 08:51:25 Occipital headache 801119 Active Evelio grady MD [address] [facility] , [address], [place], [address], [place] [facility] 6 08:51:25 Problem Notes None recorded. Procedures Surgical History Date Name Laterality Status Provider Name and Address Organization Details Recorded Time 01/09/20 24 Lumbar Epidural steroid injection under fluoroscopic guidance completed Evelio Smith MD [address] [facility] , [address], [place], [address], [place] [facility] 01/09/2024 11:18:14 12/26/19 23 Lumbar Epidural steroid injection under fluoroscopic guidance completed Evelio Smtih MD [address] [facility] , [address], [place], [address], [place] [facility] 12/25/2022 13:26:44 07/08/20 19 Greater Occipital Nerve Block(s) completed Evelio Smith MD [address] [facility] , [address], [place], [address], [place] [facility] 07/09/2019 14:01:34 01/07/20 19 Cervical Epidural Steroid injection under fluroscopic guidance completed Evelio Smith MD [address] [facility] , [address], [place], [address], [place] [facility] 01/07/2019 10:50:11 04/24/20 17 Lumbar Epidural steroid injection under fluoroscopic guidance completed Evelio Smith MD [address] [facility] , [address], [place], [address], [place] [facility] 05/02/2017 10:32:28 10/21/19 17 Lumbar Fusion completed Elsa Lainez [place] [facility] 12/18/2018 13:40:37 10/02/20 16 Lumbar Epidural steroid injection under fluoroscopic guidance completed Evelio Smith MD [address] , [address], [place], [address], [place] [facility] 10/02/2016 14:32:08 04/04/20 16 Lumbar Epidural steroid injection under fluoroscopic guidance completed Evelio Smith MD [address] , [address], [place], [address], [place] [facility] 04/04/2016 11:07:10 [...] LastModified Time 12/25/2022 XR, cervical spine completed [facility] [address] [place] [address], [address], 01/24/2023 13:46:21 02/06/2023 MRI, cervical spine, w/o contrast completed [facility] [address] [place] [address], [address], 02/11/2023 15:20:32 Procedure Notes None recorded. Medical Equipment None Reported. Allergies Allergen ID Allergen Name Allergen Category Reaction Reaction Severity Criticality Documentation Date Start Date Code Code System Note Provider Name and Address Organization Details Recorded Time 38771 Substance with sulfonami de structure and antibacte rial mechanism of action (substanc e) medicatio n hives Not available Not available 02/27/2016 19477 8003 SNOMED Elsa paris [place] - [facility] [...] ar syringe TO BE ADMINISTE RED BY [employer] T FOR IMMUNIZAT ION 12/18 completed Not [...] % 107 mm[Hg] 77 mm[Hg] Corina Saldivar [facility] 3 13:18:03 Date Recorded Body height Heart rate Oxygen saturation Oxygen saturation in Arterial blood by Pulse oximetry Pain severity - 0-10 verbal numeric rating [Score] - Reported Body mass index (BMI) Body weight Systolic blood pressure Diastolic blood pressure Provider Name and Address Organization Details Last Updated DateTime 3 162.56 cm 89 /min 98 % 98 % 8 35.2 kg/m2 79678.4 4 g 165 mm[Hg] 77 mm[Hg] Mary Zamarripa [facility] 3 13:23:02 Date Recorded Body height Pain severity - 0-10 verbal numeric rating [Score] - Reported Heart rate Oxygen saturation Oxygen saturation in Arterial blood by Pulse oximetry Body mass index (BMI) Body weight Systolic blood pressure Diastolic blood pressure Provider Name and Address Organization Details Last Updated DateTime 4 162.56 cm 8 75 /min 96 % 96 % 34.3 kg/m2 64779.4 7 g 150 mm[Hg] 90 mm[Hg] Deana Simeon robb [place] [facility] 4 14:28:07 Date Recorded Body height Heart rate Oxygen saturation Oxygen saturation in Arterial blood by Pulse oximetry Pain severity - 0-10 verbal numeric rating [Score] - Reported Systolic blood pressure Diastolic blood pressure Provider Name and Address Organization Details Last Updated DateTime 4 162.56 cm 102 /min 98 % 98 % 10 138 mm[Hg] 95 mm[Hg] Irish Cornelius [place] [facility] 4 10:08:26 Date Recorded Body height Heart rate Oxygen saturation Oxygen saturation in Arterial blood by Pulse oximetry Body mass index (BMI) Body weight Pain severity - 0-10 verbal numeric rating [Score] - Reported Systolic blood pressure Diastolic blood pressure Provider Name and Address Organization Details Last Updated DateTime 4 162.56 cm 101 /min 97 % 97 % 34.3 kg/m2 44909.4 7 g 10 144 mm[Hg] 91 mm[Hg] Evelio grady MD [address] [place] [address] , [address], [place], [address], [place] [facility] 4 10:28:41 Social History Question Answer Notes LastModified by Organizat ion Details LastModified Time Tobacco Smoking Status Never Smoker Not Available [employer] 08/05/2020 03:16:12 What Is Your Level Of Alcohol Consumption? Moderate [id number] Information not available 08/05/2020 Are You Currently Employed? No Disability [email or web address] Information not available 11/23/2021 Which Illicit Or Recreational Drugs Have You Used? No [id number] Information not available 08/05/2020 Education [employer] Information not available 02/27/2016 Live Alone Or With Others? Alone Information not available 02/27/2016 Marital Status Informatio n not available 02/27/2016 What Was The Date Of Your Most Recent Tobacco Screening? 01/31/2019 [id number] Information not available 08/05/2020 Sex: Unknown Functional [...] SNOMED-CT Code Diagnosis ICD10 Code Diagnosis Note [id number] Evelio Smith MD PAIN OFFICE [address] [place] [address] 02/27/2016 14:19:46 02/28/2016 08:47:29 Displacement of lumbar intervertebral disc without myelopathy 09742839 M51.26 Lumbosacra l radiculitis 25522787 M54.17 Brachial radiculitis 278 99357 M54.12 Cervical post-laminectomy syndrome 277484996 M96.1 Degenerati on of cervical intervertebral disc 17072500 M50.30 Occipital headache 08032 7 R51 22597 Evelio Smith MD PAIN OFFICE [address] [place] [address] 03/20/2016 08:42:32 03/20/2016 10:30:41 Displacement of lumbar intervertebral disc without myelopathy 98274418 M51.26 Lumbosacra l radiculitis 98194075 M54.17 00829 Evelio Smith MD PAIN OFFICE [address] [place] [address] 04/04/2016 10:15:22 04/04/2016 11:15:33 Displacement of lumbar intervertebral disc without myelopathy 36883646 M51.26 Lumbosacra l radiculitis 51085288 M54.17 48076 Evelio Smith MD PAIN OFFICE [address] [place] [address] 05/10/2016 11:47:50 05/15/2016 08:55:57 Displacement of lumbar intervertebral disc without myelopathy 44459588 M51.26 Lumbosacra l radiculitis 88738133 M54.17 80446 Evelio Smith MD PAIN OFFICE [address] [place] [address] 09/03/2016 10:14:59 09/20/2016 08:51:29 Lumbosacral radiculitis 43253231 M54.17 Displaceme nt of lumbar intervertebral disc without myelopathy 13819497 M51.26 63873 Evelio Smith MD PAIN OFFICE [address] [place] [address] 10/02/2016 13:29:26 10/03/2016 14:29:14 Displacement of lumbar intervertebral disc without myelopathy 11843144 M51.26 Lumbosacra l radiculitis 04131841 M54.17 68646 Evelio Smith MD PAIN OFFICE [address] [place] [address] 03/27/2017 13:22:06 03/28/2017 16:32:03 Cervical radiculopathy 18375148 M54.12 Degenerati on of cervical intervertebral disc 72856378 M50.30 Muscle pain 37745093 M79 .1 Displaceme nt of lumbar intervertebral disc without myelopathy 23790150 M51.26 Lumbosacra l radiculitis 44001639 M54.17 07641 Evelio Smith MD PAIN OFFICE [address] [place] [address] 04/24/2017 13:30:47 05/02/2017 13:43:27 Cervical post-laminectomy syndrome 266249601 M96.1 Cervical radiculopathy 94059114 M54.12 Displaceme nt of lumbar intervertebral disc without myelopathy 78113917 M51.26 Lumbosacra l radiculitis 19334711 M54.17 26953 Evelio Smith MD PAIN OFFICE [address] [place] [address] 05/16/2017 11:40:03 05/17/2017 11:19:26 Brachial radiculitis 24877761 M54.12 Degenerati on of cervical intervertebral disc 84437448 M50.30 Cervical post-laminectomy syndrome 696500755 M96.1 Occipital headache 43059 7 R51 85355 Evelio Smith MD [facility] PAIN OFFICE [address] [place] [address] 12/18/2018 13:31:38 12/18/2018 16:14:01 Brachial radiculitis 09241459 M54.12 Degenerati on of cervical intervertebral disc 32174969 M50.30 Cervical post-laminectomy syndrome 738567306 M96.1 Occipital headache 89469 7 R51 19670 Evelio Smith MD [facility] PAIN OFFICE [address] [place] [address] 01/06/2019 08:42:42 01/07/2019 10:53:06 Brachial radiculitis 21158354 M54.12 Degenerati on of cervical intervertebral disc 44755114 M50.30 Cervical post-laminectomy syndrome 466958752 M96.1 Occipital headache 30472 7 R51 35494 Evelio Smith MD [facility] PAIN OFFICE [address] [place] [address] 01/28/2019 14:04:46 01/31/2019 10:24:31 Brachial radiculitis 13357507 M54.12 Degenerati on of cervical intervertebral disc 56736429 M50.30 Cervical post-laminectomy syndrome 992301616 M96.1 Occipital headache 06451 7 R51 86216 Evelio Smith MD PAIN OFFICE [address] [place] [address] 06/09/2019 14:32:10 06/26/2019 15:58:13 Occipital headache 768156 R51 Degenerati on of cervical intervertebral disc 46221641 M50.30 Cervical post-laminectomy syndrome 620537361 M96.1 Brachial radiculitis 278 79928 M54.12 22575 Evelio Smith MD [facility] PAIN OFFICE [address] [place] [address] 07/08/2019 15:29:45 07/09/2019 14:03:49 Occipital headache 377906 R51 Cervical post-laminectomy syndrome 125382156 M96.1 Degenerati on of cervical intervertebral disc 11451534 M50.30 Brachial radiculitis 278 40507 M54.12 41687 Evelio Smith MD [facility] PAIN OFFICE [address] [place] [address] 08/24/2019 13:24:13 08/25/2019 11:25:36 Occipital headache 147747 R51 Degenerati on of cervical intervertebral disc 99299682 M50.30 Cervical post-laminectomy syndrome 878634941 M96.1 Brachial radiculitis 278 45882 M54.12 50299 Evelio Smith MD [facility] PAIN OFFICE [address] [place] [address] 03/07/2020 13:03:14 03/07/2020 14:34:46 Occipital headache 103759 R51 Degenerati on of cervical intervertebral disc 78706688 M50.30 Cervical post-laminectomy syndrome 374821118 M96.1 Brachial radiculitis 278 29210 M54.12 71652 Evelio Smith MD [facility] PAIN OFFICE [address] [place] [address] 11/23/2021 13:01:22 11/23/2021 13:27:11 Displacement of lumbar intervertebral disc without myelopathy 33966361 M51.26 Lumbosacra l radiculitis 73825000 M54.17 Brachial radiculitis 278 [address]3960 M54.12 Cervical post-laminectomy syndrome 292114800 M96.1 Degenerati on of cervical intervertebral disc 87239284 M50.30 Occipital headache 53815 7 R51.9 51021 Evelio Smith MD [facility] PAIN OFFICE [address] [place] [address] 09/12/2022 08:14:50 09/12/2022 15:42:09 Displacement of lumbar intervertebral disc without myelopathy 90800041 M51.26 Lumbosacra l radiculitis 69857186 M54.17 Brachial radiculitis 278 00451 M54.12 Cervical post-laminectomy syndrome 095481278 M96.1 Degenerati on of cervical intervertebral disc 75639726 M50.30 Occipital headache 10510 7 R51.9 66755 Evelio Smith MD [facility] PAIN OFFICE [address] [place] [address] 12/06/2022 14:08:50 12/13/2022 14:02:45 Displacement of lumbar intervertebral disc without myelopathy 77838888 M51.26 Lumbosacra l radiculitis 27622810 M54.17 Brachial radiculitis 278 99811 M54.12 Cervical post-laminectomy syndrome 986850330 M96.1 Degenerati on of cervical intervertebral disc 52820796 M50.30 Occipital headache 68802 7 R51.9 62772 Evelio Smith MD [facility] PAIN OFFICE [address] [place] [address] 12/25/2022 11:32:27 12/25/2022 13:59:32 Displacement of lumbar intervertebral disc without myelopathy 60211908 M51.26 Lumbosacra l radiculitis 27972579 M54.17 Brachial radiculitis 278 [address] M54.12 Cervical post-laminectomy syndrome 813243558 M96.1 Degenerati on of cervical intervertebral disc 17130622 M50.30 Occipital headache 97091 7 R51.9 46830 Evelio Smith MD [facility] PAIN OFFICE [address] [place] [address] 01/24/2023 13:09:55 01/31/2023 14:49:17 Brachial radiculitis 15987048 M54.12 Degenerati on of cervical intervertebral disc 85493770 M50.30 Cervical post-laminectomy syndrome 938384343 M96.1 Occipital headache 48172 7 R51.9 16649 Evelio Smith MD [facility] PAIN OFFICE [address] [place] [address] 04/01/2023 13:14:13 04/05/2023 12:19:21 Lumbosacral radiculitis 42924290 M54.17 Brachial radiculitis 278 71380 M54.12 Degenerati on of cervical intervertebral disc 61851152 M50.30 Cervical post-laminectomy syndrome 046930879 M96.1 Occipital headache 07083 7 R51.9 21439 Evelio Smith MD PAIN OFFICE [address] [place] [address] 12/02/2023 14:06:57 12/02/2023 14:57:45 Lumbosacral radiculitis 00426508 M54.17 Displaceme nt of lumbar intervertebral disc without myelopathy 20713747 M51.26 Brachial radiculitis 278 43979 M54.12 Cervical post-laminectomy syndrome 005117131 M96.1 Degenerati on of cervical intervertebral disc 66486681 M50.30 Occipital headache 95955 7 R51.9 74910 Evelio Smith MD PAIN OFFICE [address] [place] [address] 01/09/2024 10:01:40 01/09/2024 15:01:59 Displacement of lumbar intervertebral disc without myelopathy 45074665 M51.26 Lumbosacra l radiculitis 25857932 M54.17 Brachial radiculitis 278 86696 M54.12 Cervical post-laminectomy syndrome 875070826 M96.1 Degenerati on of cervical intervertebral disc 48525485 M50.30 Occipital headache 60453 7 R51.9 23730 Evelio Smith MD PAIN OFFICE [address] [place] [address] 03/27/2024 10:21:43 03/31/2024 16:07:49 Displacement of lumbar intervertebral disc without myelopathy 29485169 M51.26 Lumbosacra l radiculitis 96569657 M54.17 Brachial radiculitis 278 58174 M54.12 Cervical post-laminectomy syndrome 621455867 M96.1 Degenerati on of cervical intervertebral disc 29064616 M50.30 Occipital headache 02599 7 R51.9 Health Concerns Section Related Observation LastModified by Organization Detai ls LastModified Time None Recorded Concern Status LastModified by Organization Details LastModified Time None Recorded Advance Directives Directive None Recorded Payers Encounter Date Sequence Insurance Name Policy Number Policy Mojica Covered Member ID Mojica Member ID Guarantor Name 01/24/2023 2 [employer] - DOS PRIOR TO 2023 (MEDICARE REPLACEMENT/ADV ANTAGE - PPO) Ange Montesinos [id number] 04/01/2023 1 [facility] [employer] - DOS ON OR AFTER 2023 - ONE CARE (MEDICARE REPLACEMENT/ADV ANTAGE - HMO) Ange Montesinos [id number] 12/02/2023 1 [facility] - DOS ON OR AFTER 2023 - ONE CARE (MEDICARE REPLACEMENT/ADV ANTAGE - HMO) Ange Montesinos [id number] 01/09/2024 1 [facility] - DOS ON OR AFTER 2023 - ONE CARE (MEDICARE REPLACEMENT/ADV ANTAGE - HMO) Ange Montesinos [id number] 03/27/2024 1 [facility] [employer] - DOS ON OR AFTER 2023 - ONE CARE (MEDICARE REPLACEMENT/ADV ANTAGE - HMO) Ange Montesinos [id number] Notes Date Note Type Note Provider Name [...] bladder or bowel incontinence. Evelio Smith MD [address] [facility] , [address], [place], [address], [facility] - Pain Management 01/31/2023 15:49:56 04/01/2023 text/html She [...] this time.She states she has been having [place] Palsy for the past one year and sees Dr. 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 She has weakness in her arms and legs . Evelio Smith MD [email or web address] , [address], [place], [address], [facility] - Pain Management 04/05/2023 12:20:51 12/02/2023 text/html She states she h as been having pain since 8638-8008. She is having an exacerbation of pain [...] [facility] [place] [place] . She has done physical therapy and had an exacerbation of her pain.She has seen a neurosurgeon in [place], [place] . She wants to wait as she is planning on a knee replacement. She is also in grief as she has lost her mother last year. Evelio Smith MD [email or web address] , [address], [place], [address], [facility] - Pain Management 12/04/2023 16:33:41 01/09/2024 text/html She is here for a lumbar epidural steroid injection under fluoroscopic guidance. Evelio Smith MD [email or web address] , [address], [place], [address], [facility] - Pain Management 01/09/2024 15:09:18 03/27/2024 text/html She states she h as been having pain since 6307-0795. She is having an exacerbation of pain [...] been doing an exercise program in the in [place], [place] . She has done physical therapy and had an exacerbation of her pain.She has seen a neurosurgeon in [place], [place] . She is S/P knee replacement on 03/03/[address] Segundo and is on eliquis. Evelio Smith MD [address] [facility] , [address], [place], [address], [facility] 03/31/2024 16:06:56 OBGyn Episode No OBEpisode recorded.
--- OUTSIDE RECORDS SUMMARY | 2025-01-20 13:14 | XMS_ITS | Encounter Summary ---
Author Organization [facility] Address [address] [place] [address] Care Team Providers Care Business Services Officer Name Role Phone Mily Lawrence MD Primary Care Provider Ralf Gastelum MD Unavailable [phone] Gretchen Juan MD Unavailable [phone] Katherine Snow PA-C Unavailable [phone] Per Leahy PA-C Unavailable [phone] Encounter Details Date Type Department Care Team Description 10/25/2022 Telephone [facility] Medical [facility] [address] [facility] [address] [place] [address] Marci Bernardo PA-C 175 [facility] [address] [place] [address] Social History Tobacco Use Types Packs/Day [...] filedocumented in this encounter Care Teams Business Services Officer Relationship Specialty Start Date End Date Mily Lawrence MD PCP - General Internal Medicine 03/09/19 Ralf Gastelum MD [address] [facility] [address] [place] [address] Specialist Cardiovascular Disease 06/08/22 Gretchen Juan MD [address] [address] Surgeon Neurosurgery 02/13/23 Katherine Snow PA-C [address] [address] Specialist Neurosurgery 02/13/23 Per Leahy PA-C [address] [address] Specialist Neurosurgery 02/13/23 documented as of this encounter
--- OUTSIDE RECORDS SUMMARY | 2025-01-20 13:14 | XMS_ITS | Encounter Summary ---
Author Organization [facility] Address [address] [place] [address] Care Team Providers Care Dynamite Shooter Name Role Phone Mily Lawrence MD Primary Care Provider [phone] Ralf Gastelum MD Unavailable [phone] Gretchen Juan MD Unavailable [phone] Katherine Snow PA-C Unavailable [phone] Per Leahy PA-C Unavailable [phone] Reason for Visit * Reason Comments E-prescribe Rx Request Encounter Details Date Type Department Care Team Description 06/09/2019 [facility] Internal Medicine [address], [address] [place] [address] Mily Lawrence MD [address] [place] [address] E-prescribe Rx Request Social History Tobacco [...] N/A Patients current insurance carrier is: Payor: [employer] / Plan: [employer] / Product Type: MEDICAID RISK documented in this encounter Plan of Treatment Not on file documented as of this encounter Visit Diagnoses Not on filedocumented in this encounter Care Teams Dynamite Shooter Relationship Specialty Start Date End Date Mily Lawrence MD PCP - General Internal Medicine 03/09/19 Ralf Gastelum MD [address] [facility] [address] [place] [address] Specialist Cardiovascular Disease 06/08/22 Gretchen Juan MD 175 [facility] [address] [place] [address] Surgeon Neurosurgery 02/13/23 Katherine Snow PA-C 175 [facility] [address] [place] [address] Specialist Neurosurgery 02/13/23 Per Leahy PA-C 175 [facility] [address] [place] [address] Specialist Neurosurgery 02/13/23 documented as of this encounter
--- OUTSIDE RECORDS SUMMARY | 2025-01-20 13:14 | XMS_ITS | Encounter Summary ---
Author Organization [facility] Address [address] [place] [address] Care Team Providers Care Title Search Manager Name Role Phone Mily Lawrence MD Primary Care Provider [phone] Trey Mueller MD Primary Care Provider Unavaila ble Mily Lawrence MD Primary Care Provider [phone] Ralf Gastelum MD Unavailable [phone] Gretchen Juan MD Unavailable [phone] Katherine Snow PA-C Unavailable [phone] Per Leahy PA-C Unavailable [phone] Encounter Details Date Type Department Care Team Description 11/24/2018 Release of Information Medical Records [address] [place] [id number] Abstract, Provider Social History Tobacco Use Types [...] on filedocumented in this encounter Care Teams Title Search Manager Relationship Specialty Start Date End Date Mily Lawrence MD PCP - General Internal Medicine 03/13/17 01/01/19 Trey Mueller MD PCP - General Internal Medicine 01/02/19 03/08/19 Mily Lawrence MD PCP - General Internal Medicine 03/09/19 Ralf Gastelum MD 300 [facility] 154 [place] [address] Specialist Cardiovascular Disease 06/08/22 Gretchen Juan MD [address] [address] Surgeon Neurosurgery 02/13/23 Katherine Snow PA-C [address] [address] Specialist Neurosurgery 02/13/23 Per Leahy PA-C [address] [address] Specialist Neurosurgery 02/13/23 documented as of this encounter
--- OUTSIDE RECORDS SUMMARY | 2025-01-20 13:14 | XMS_ITS | Encounter Summary ---
Author Organization [facility] Address [address] [place] [address] Care Team Providers Care Logistics Manager Name Role Phone Mily Lawrence MD Primary Care Provider [phone] Trey Mueller MD Primary Care Provider Unavaila ble Mily Lawrence MD Primary Care Provider [phone] Ralf Gastelum MD Unavailable [phone] Gretchen Juan MD Unavailable [phone] Katherine Snow PA-C Unavailable [phone] Per Leahy PA-C Unavailable [phone] Encounter Details Date Type Department Care Team Description 10/22/2018 Regulatory Compliance Engineer Report Medical Records [address] [place] [address] Marci Bernardo PA-C [address] [place] [address] Social History Tobacco Use Types Packs/Day Years [...] on filedocumented in this encounter Care Teams Logistics Manager Relationship Specialty Start Date End Date Mily Lawrence MD PCP - General Internal Medicine 03/13/17 01/01/19 Trey Mueller MD PCP - General Internal Medicine 01/02/19 03/08/19 Mily Lawrence MD PCP - General Internal Medicine 03/09/19 Ralf Gastelum MD 300 [facility] 154 [place] [address] Specialist Cardiovascular Disease 06/08/22 Gretchen Juan MD [address] [address] Surgeon Neurosurgery 02/13/23 Katherine Snow PA-C [address] [address] Specialist Neurosurgery 02/13/23 Per Leahy PA-C [address] [address] Specialist Neurosurgery 02/13/23 documented as of this encounter
--- OUTSIDE RECORDS SUMMARY | 2025-01-20 13:14 | XMS_ITS | Encounter Summary ---
Author Organization [facility] Address [address] [place] [address] Care Team Providers Care Envelope Sealer Name Role Phone Mily Lawrence MD Primary Care Provider +[phone] Trey Mueller MD Primary Care Provider Unavaila ble Mily Lawrence MD Primary Care Provider [phone] Ralf Gastelum MD Unavailable [phone] Gretchen Juan MD Unavailable [phone] Katherine Snow PA-C Unavailable [phone] Per Leahy PA-C Unavailable [phone] Encounter Details Date Type Department Care Team Description 04/07/2018 Telephone [facility] - [address] [id number] Frank Fry MD Social History Tobacco Use Types Packs/Day [...] encounter Miscellaneous Notes * Telephone Encounter - Delaney Burns L.P.N. - 04/08/2018 10:31 AM EDT called and informed She says she was told by her PCP that she should consult her neurosurgeon as she still has numbnessin her arms and hands.... She will do that * Telephone Encounter - Frank Fry MD - 04/07/2018 5:02 PM EDT Jeanne, please call patient [phone] (home) [phone] (work) The nerve testing was negative. This either means that she doesn't have nerve compression problem or it's too mild to show up on the testing at this point. Overall workup suggests more likely osteoarthritis rather than rheumatoid arthritis. I would suggest hdlr-nrn-mmunzqy analgesic ointments and up to 3,000 mg acetaminophen in 24 hours. A recheck in 3-4 months to see if anything Has changed would be reasonalble Dr. Fry * Telephone Encounter - Delaney Burns L.P.N. - 04/07/2018 3:39 PM EDT Calling today to see results of EMG she had on 03/26.... She did not show for appt with you on 03/18... She wants to know what her next step from you is??? documented in this encounter Plan of Treatment Not on file documented as of this encounter Visit Diagnoses Not on filedocumented in this encounter Care Teams Envelope Sealer Relationship Specialty Start Date End Date Mily Lawrence MD PCP - General Internal Medicine 03/13/17 01/01/19 Trey Mueller MD PCP - General Internal Medicine 01/02/19 03/08/19 Mily Lawrence MD PCP - General Internal Medicine 03/09/19 Ralf Gastelum MD 300 [facility] [address] [place] [address] Specialist Cardiovascular Disease 06/08/22 Gretchen Juan MD 175 [facility] 300 [place] [address] Surgeon Neurosurgery 02/13/23 Katherine Snow PA-C 175 [facility] 300 [place] [address] Specialist Neurosurgery 02/13/23 Per Leahy PA-C 175 [facility] 300 [place] [address] Specialist Neurosurgery 02/13/23 documented as of this encounter
--- OUTSIDE RECORDS SUMMARY | 2025-01-20 13:14 | XMS_ITS | Encounter Summary ---
Author Organization [facility] Address [address] [place] [address] Care Team Providers Care Professional Wrestler Name Role Phone Mily Lawrence MD Primary Care Provider +[phone] Trey Mueller MD Primary Care Provider Unavaila ble Mily Lawrence MD Primary Care Provider [phone] Ralf Gastelum MD Unavailable [phone] Gretchen Juan MD Unavailable [phone] Katherine Snow PA-C Unavailable [phone] Per Leahy PA-C Unavailable [phone] Encounter Details Date Type Department Care Team Description 10/24/2018 Ultrasound Spec Report Medical Records [address] [place] [address] Per Leahy PA-C 175 [facility] 300 [place] [address] Social History Tobacco Use Types Packs/Day Years [...] on filedocumented in this encounter Care Teams Professional Wrestler Relationship Specialty Start Date End Date Mily Lawrence MD PCP - General Internal Medicine 03/13/17 01/01/19 Trey Mueller MD PCP - General Internal Medicine 01/02/19 03/08/19 Mily Lawrence MD PCP - General Internal Medicine 03/09/19 Ralf Gastelum MD 300 [facility] [address] [place] [address] Specialist Cardiovascular Disease 06/08/22 Gretchen Juan MD [address] [address] Surgeon Neurosurgery 02/13/23 Katherine Snow PA-C 175 [facility] 300 [place] [address] Specialist Neurosurgery 02/13/23 Per Leahy PA-C 175 [facility] 300 [place] [address] Specialist Neurosurgery 02/13/23 documented as of this encounter
--- OUTSIDE RECORDS SUMMARY | 2025-01-20 13:14 | XMS_ITS | Encounter Summary ---
Author Organization [facility] Address [address] [place] [address] Care Team Providers Care Emergency Spill Response Technician Name Role Phone Mily Lawrence MD Primary Care Provider [phone] Ralf Gastelum MD Unavailable [phone] Gretchen Snider MD Unavailable [phone] Katherine Snow PA-C Unavailable [phone] Per Leahy PA-C Unavailable [phone] Reason for Visit * Reason Onset Date Comments Provider Call Back 06/09/2019 Encounter Details Date Type Department Care Team Description 06/09/2019 Telephone Internal Medicine - [address], [address] [place], [place] [phone] Mily Lawrence MD [address] [place] [phone] Provider Call Back Social History Tobacco [...] see Dr. Tavarez at [facility] [place] to get injection but it was not [...] on filedocumented in this encounter Care Teams Emergency Spill Response Technician Relationship Specialty Start Date End Date Mily Lawrence MD PCP - General Internal Medicine 03/09/19 Ralf Gastelum MD 300 [facility] 154 [place] [address] Specialist Cardiovascular Disease 06/08/22 Gretchen Snider MD [address] [address] Surgeon Neurosurgery 02/13/23 Katherine Snow PA-C [address] [address] Specialist Neurosurgery 02/13/23 Per Leahy PA-C [address] [address] Specialist Neurosurgery 02/13/23 documented as of this encounter
--- OUTSIDE RECORDS SUMMARY | 2025-01-20 13:14 | XMS_ITS | Encounter Summary ---
Author Organization [facility] Address [address] [place] [address] Care Team Providers Care Welder Oxyhydrogen Name Role Phone Mily Lawrence MD Primary Care Provider [phone] Ralf Gastelum MD Unavailable [phone] Gretchen Juan MD Unavailable [phone] Katherine Snow PA-C Unavailable [phone] Per Leahy PA-C Unavailable [phone] Encounter Details Date Type Department Care Team Description 05/26/2019 Call Center Professional Report Medical Records [address] [place] [address] Gretchen Juan MD [address] [place] [address] [address] [place], [place] [id number] Social History Tobacco Use Types Packs/Day Years [...] on filedocumented in this encounter Care Teams Welder Oxyhydrogen Relationship Specialty Start Date End Date Mily Lawrence MD PCP - General Internal Medicine 03/09/19 Ralf Gastelum MD 300 [facility] [address] [place] [address] Specialist Cardiovascular Disease 06/08/22 Gretchen Juan MD 175 [facility] 300 [place] [address] Surgeon Neurosurgery 02/13/23 Katherine Snow PA-C 175 [facility] 300 [place] [address] Specialist Neurosurgery 02/13/23 Per Leahy PA-C 175 [facility] 300 [place] [address] Specialist Neurosurgery 02/13/23 documented as of this encounter
--- OUTSIDE RECORDS SUMMARY | 2025-01-20 13:14 | XMS_ITS | Encounter Summary ---
Author Organization [facility] Address [address] [place] [address] Care Team Providers Care Sanitation Worker Cleaning Equipment Name Role Phone Mily Lawrence MD Primary Care Provider [phone] Ralf Gastelum MD Unavailable [phone] Gretchen Juan MD Unavailable [phone] Katherine Snow PA-C Unavailable [phone] Per Leahy PA-C Unavailable [phone] Reason for Visit * Reason Comments E-prescribe Rx Request Encounter Details Date Type Department Care Team Description 06/15/2019 [facility] Internal Medicine [address], [address] [place] [address] Mily Lawrence MD [address] [place] [phone] E-prescribe Rx Request Social History Tobacco [...] N/A Patients current insurance carrier is: Payor: [employer] / Plan: [employer] / Product Type: MEDICAID RISK documented in this encounter Plan of Treatment Not on file documented as of this encounter Visit Diagnoses Not on filedocumented in this encounter Care Teams Sanitation Worker Cleaning Equipment Relationship Specialty Start Date End Date Mily Lawrence MD PCP - General Internal Medicine 03/09/19 Ralf Gastelum MD [address] [place] [address] Specialist Cardiovascular Disease 06/08/22 Gretchen Juan MD 175 [facility] [address] [place] [address] Surgeon Neurosurgery 02/13/23 Katherine Snow PA-C 175 [facility] 300 [place] [address] Specialist Neurosurgery 02/13/23 Per Leahy PA-C 175 [facility] [address] [place] [address] Specialist Neurosurgery 02/13/23 documented as of this encounter
--- OUTSIDE RECORDS SUMMARY | 2025-01-20 13:14 | XMS_ITS | Encounter Summary ---
Author Organization [facility] Address [address] [place] [address] Care Team Providers Care Operations Manager Station Name Role Phone Mily Lawrence MD Primary Care Provider Ralf Gastelum MD Unavailable [phone] Gretchen Juan MD Unavailable [phone] Katherine Snow PA-C Unavailable [phone] Per Leahy PA-C Unavailable [phone] Reason for Referral * EXTERNAL (Routine) - Authorized/Booked Specialty Diagnoses / Procedures Referred By Jonny breaux Referred To Contact Neurology Procedures REFERRAL TO NEUROLOGY Mily Lawrence MD [address] [place] [phone] Robi Loomis MD Referral ID Status Reason Start Date Expiration Date V isits Requested Visits Authorized SEE NOTE Authorized/B ooked 06/01/2019 09/03/2019 1 1 Reason for Visit * Reason Onset Date Comments other 05/29/2019 ? neuro referral Encounter Details Date Type Department Care Team Description 05/29/2019 Telephone Internal Medicine - [facility] 175 [facility], [address] [place], [place] [phone] Mily Lawrence MD [address] [place] [phone] other (? neuro referral) Social History [...] team met patient yesterday to enroll in [facility]. She reports she has noticed in the past year that she has become more forgetful, has difficulty forming words/sentences and at time doesn't hear well.She is concerned these sx could be a neurological issue. She has not reported sx to providers. She is open to coming in for an appt to discuss sx and/or referral to neurology. Please advise. Thank you Alyce Vázquez assessment clinician Manager with [facility] Edita Zaldivar @ 175 [facility] [id number] documented in this encounter Plan of Treatment Not on file documented as of this encounter Visit Diagnoses Not on filedocumented in this encounter Care Teams Operations Manager Station Relationship Specialty Start Date End Date Mily Lawrence MD PCP - General Internal Medicine 03/09/19 Ralf Gastelum MD 300 [facility] [address] [place] [address] Specialist Cardiovascular Disease 06/08/22 Gretchen Juan MD 175 [facility] 300 [place] [address] Surgeon Neurosurgery 02/13/23 Katherine Snow PA-C 175 [facility] 300 [place] [address] Specialist Neurosurgery 02/13/23 Per Leahy PA-C 175 [facility] 300 [place] [address] Specialist Neurosurgery 02/13/23 documented as of this encounter
--- OUTSIDE RECORDS SUMMARY | 2025-01-20 13:14 | XMS_ITS | Encounter Summary ---
Author Organization [facility] Address [address] [place] [address] Care Team Providers Care Hospital Orderly Name Role Phone Mily Lawrence MD Primary Care Provider [phone] Ralf Gastelum MD Unavailable [phone] Gretchen Juan MD Unavailable [phone] Katherine Snow PA-C Unavailable [phone] Per Leahy PA-C Unavailable [phone] Encounter Details Date Type Department Care Team Description 08/26/2019 Beef Grader Report Medical Records [address] [place] [address] Camilla Lopez MD Social History Tobacco Use [...] on filedocumented in this encounter Care Teams Hospital Orderly Relationship Specialty Start Date End Date Mily Lawrence MD PCP - General Internal Medicine 03/09/19 Ralf Gastelum MD 300 [facility] [address] [place] [address] Specialist Cardiovascular Disease 06/08/22 Gretchen Juan MD 175 [facility] 300 [place] [address] Surgeon Neurosurgery 02/13/23 Katherine Snow PA-C 175 [facility] 300 [place] [address] Specialist Neurosurgery 02/13/23 Per Leahy PA-C 175 [facility] 300 [place] [address] Specialist Neurosurgery 02/13/23 documented as of this encounter
--- OUTSIDE RECORDS SUMMARY | 2025-01-20 13:14 | XMS_ITS | Encounter Summary ---
Author Organization [facility] Address [address] [place] [address] Care Team Providers Care Plating And Point Assembly Supervisor Name Role Phone Mily Lawrence MD Primary Care Provider [phone] Ralf Gastelum MD Unavailable [phone] Gretchen Juan MD Unavailable [phone] Katherine Snow PA-C Unavailable [phone] Per Leahy PA-C Unavailable [phone] Reason for Visit * Reason Onset Date Comments refill request 09/25/2019 Metoprolol Encounter Details Date Type Department Care Team Description 09/25/2019 Telephone Internal Medicine - [address], [address] [place], [place] [phone] Mily Lawrence MD [address] [place] [phone] refill request (Metoprolol) Social History Tobacco [...] has f/u scheduled for 10/27/19. Alyce Vázquez utility sales representative Manager with [facility] [place] @ [address] [place] [address] [id number] documented in this encounter Plan of Treatment Not on file documented as of this encounter Visit Diagnoses Not on filedocumented in this encounter Care Teams Plating And Point Assembly Supervisor Relationship Specialty Start Date End Date Mily Lawrence MD PCP - General Internal Medicine 03/09/19 Ralf Gastelum MD 300 [facility] [address] [place] [address] Specialist Cardiovascular Disease 06/08/22 Gretchen Juan MD 175 [facility] 300 [place] [address] Surgeon Neurosurgery 02/13/23 Katherine Snow PA-C [address] [address] Specialist Neurosurgery 02/13/23 Per Leahy PA-C [address] [address] Specialist Neurosurgery 02/13/23 documented as of this encounter
--- OUTSIDE RECORDS SUMMARY | 2025-01-20 13:14 | XMS_ITS | Encounter Summary ---
Author Organization [facility] Address [address] [place] [address] Care Team Providers Care Web Site Admin Name Role Phone Mily Lawrence MD Primary Care Provider +[phone] Ralf Gastelum MD Unavailable [phone] Gretchen Juan MD Unavailable [phone] Katherine Snow PA-C Unavailable [phone] Per Leahy PA-C Unavailable [phone] Encounter Details Date Type Department Care Team Description 09/22/2019 Industrial Real Estate Agent Report Medical Records [address] [place] [address] Camilla Lopez MD Social History Tobacco Use [...] on filedocumented in this encounter Care Teams Web Site Admin Relationship Specialty Start Date End Date Mily Lawrence MD PCP - General Internal Medicine 03/09/19 Ralf Gastelum MD 300 [facility] [address] [place] [address] Specialist Cardiovascular Disease 06/08/22 Gretchen Juan MD 175 [facility] 300 [place] [address] Surgeon Neurosurgery 02/13/23 Katherine Snow PA-C 175 [facility] 300 [place] [address] Specialist Neurosurgery 02/13/23 Per Leahy PA-C 175 [facility] 300 [place] [address] Specialist Neurosurgery 02/13/23 documented as of this encounter
--- OUTSIDE RECORDS SUMMARY | 2025-01-20 13:14 | XMS_ITS | Continuity of Care Document ---
Author Organization [facility] Address [address] [place] [address] Phone Care Team Providers Care Transition Of Care Specialist Name Role Phone Ryan Duran MD Unavailable Unavailable Procedures Procedure Date [employer] Sales tax [employer] Advance Directives Directive Yes / No Effective Date File Name No Information Encounters Encounter Description Practice Location Reason(s) For Visit Diagnoses Date Provider Providers Copied on Encounter D[facility], [address] [place] [address], [address] [place] [address], tel:[phone] [facility] No Information Renee Davis. [address] [place] [address], [address] [place] [address] , . tel: [phone] Dermatology [facility], [address] [place] [address], [id number], tel:[phone] [facility] Location No Information Renee Davis. [address] [place] [address], [id number] , . tel: [phone] Dermatology [facility], [address] [place] [address], [address] [place] [address], tel:[phone] [facility] No Information Renee Davis. [address] [place] [address], [place], [place], [id number] , . tel: [phone] Family History Family Member Type Diagnosis Age [...]
--- OUTSIDE RECORDS SUMMARY | 2025-01-20 13:14 | XMS_ITS | Encounter Summary ---
Author Organization [facility] Address [address] [place] [address] Care Team Providers Care Electrostatic Powder Coating Technician Name Role Phone Mily Lawrence MD Primary Care Provider [phone] Ralf Gastelum MD Unavailable [phone] Gretchen Juan MD Unavailable [phone] Katherine Snow PA-C Unavailable [phone] Per Leahy PA-C Unavailable [phone] Encounter Details Date Type Department Care Team Description 12/25/2022 Industrial Design Intern Report Medical Records [address] [place] [address] Evelio Smith Social History Tobacco Use Types [...] on filedocumented in this encounter Care Teams Electrostatic Powder Coating Technician Relationship Specialty Start Date End Date Mily Lawrence MD PCP - General Internal Medicine 03/09/19 Ralf Gastelum MD 300 [facility] [address] [place] [address] Specialist Cardiovascular Disease 06/08/22 Gretchen Juan MD 175 [facility] 300 [place] [address] Surgeon Neurosurgery 02/13/23 Katherine Snow PA-C 175 [facility] 300 [place] [address] Specialist Neurosurgery 02/13/23 Per Leahy PA-C 175 [facility] 300 [place] [address] Specialist Neurosurgery 02/13/23 documented as of this encounter
--- OUTSIDE RECORDS SUMMARY | 2025-01-20 13:14 | XMS_ITS | Encounter Summary ---
Author Organization [facility] Address [address] [place] [address] Care Team Providers Care Sand Wheeler Name Role Phone Mily Lawrence MD Primary Care Provider +1 [phone] Trey Mueller MD Primary Care Provider Unavaila ble Mily Lawrence MD Primary Care Provider [phone] Ralf Gastelum MD Unavailable [phone] Gretchen Juan MD Unavailable [phone] Katherine Snow PA-C Unavailable [phone] Per Leahy PA-C Unavailable [phone] Encounter Details Date Type Department Care Team Description 08/22/2018 Transfer Records Medical Records [address] [place] [address] Abstract, Provider Social History Tobacco Use Types [...] on filedocumented in this encounter Care Teams [place] Wheeler Relationship Specialty Start Date End Date Mily Lawrence MD PCP - General Internal Medicine 03/13/17 01/01/19 Trey Mueller MD PCP - General Internal Medicine 01/02/19 03/08/19 Mily Lawrence MD PCP - General Internal Medicine 03/09/19 Ralf Gastelum MD [address] [address] Specialist Cardiovascular Disease 06/08/22 Gretchen Juan MD [address] [address] Surgeon Neurosurgery 02/13/23 Katherine Snow PA-C [address] [address] Specialist Neurosurgery 02/13/23 Per Leahy PA-C [address] [address] Specialist Neurosurgery 02/13/23 documented as of this encounter
--- OUTSIDE RECORDS SUMMARY | 2025-01-20 13:14 | XMS_ITS | Encounter Summary ---
Author Organization [facility] Address [address] [place] [address] Care Team Providers Care Rn Lactation Name Role Phone Mily Lawrence MD Primary Care Provider +1 [phone] Ralf Gastelum MD Unavailable [phone] Gretchen Juan MD Unavailable [phone] Katherine Snow PA-C Unavailable [phone] Per Leahy PA-C Unavailable [phone] Encounter Details Date Type Department Care Team Description 07/09/2019 Nail Making Machine Setter Report Medical Records [address] [place] [address] Evelio Smith Social History Tobacco Use Types [...] filedocumented in this encounter Care Teams Rn Lactation Relationship Specialty Start Date End Date Mily Lawrence MD PCP - General Internal Medicine 03/09/19 Ralf Gastelum MD 300 [facility] [address] [place] [address] Specialist Cardiovascular Disease 06/08/22 Gretchen Juan MD 175 [facility] 300 [place] [address] Surgeon Neurosurgery 02/13/23 Katherine Snow PA-C 175 [facility] 300 [place] [address] Specialist Neurosurgery 02/13/23 Per Leahy PA-C 175 [facility] 300 [place] [address] Specialist Neurosurgery 02/13/23 documented as of this encounter
--- OUTSIDE RECORDS SUMMARY | 2025-01-20 13:14 | XMS_ITS | Encounter Summary ---
Author Organization [facility] Address [address] [place] [address] Care Team Providers Care Street Car Mechanic Name Role Phone Mily Lawrence MD Primary Care Provider +1 [phone] Ralf Gastelum MD Unavailable [phone] Gretchen Juan MD Unavailable [phone] Katherine Snow PA-C Unavailable [phone] Per Leahy PA-C Unavailable [phone] Encounter Details Date Type Department Care Team Description 01/24/2023 Curing Pickling Packer Report Medical Records [address] [place] [address] Evelio Smith Social History Tobacco Use Types [...] on filedocumented in this encounter Care Teams Street Car Mechanic Relationship Specialty Start Date End Date Mily Lawrence MD PCP - General Internal Medicine 03/09/19 Ralf Gastelum MD 300 [facility] [address] [place] [address] Specialist Cardiovascular Disease 06/08/22 Gretchen Juan MD 175 [facility] 300 [place] [address] Surgeon Neurosurgery 02/13/23 Katherine Snow PA-C 175 [facility] 300 [place] [address] Specialist Neurosurgery 02/13/23 Per Leahy PA-C 175 [facility] 300 [place] [address] Specialist Neurosurgery 02/13/23 documented as of this encounter
--- OUTSIDE RECORDS SUMMARY | 2025-01-20 13:14 | XMS_ITS | Encounter Summary ---
Author Organization [facility] Address [address] [place] [address] Care Team Providers Care Telephone Sales Representative Name Role Phone Mily Lawrence MD Primary Care Provider +[phone]- [phone] Ralf Gastelum MD Unavailable [phone] Gretchen Juan MD Unavailable [phone] Katherine Snow PA-C Unavailable [phone] Per Leahy PA-C Unavailable [phone] Encounter Details Date Type Department Care Team Description 09/16/2019 Orders Only Podiatry - [address] [address] Yvonne Medina DPM Posterior tibial tendon tear, [...] Yvonne Medina DPM MRI Performing Organization Address City/State/[facility] Co de Phone Number [address] documented in this encounter Visit Diagnoses Diagnosis Posterior tibial tendon tear, traumatic, right, initial encounter Pain in right foot Pain in limb Acute deep vein thrombosis (DVT) of calf muscle vein of right lower extremity (HCC) documented in this encounter Care Teams Telephone Sales Representative Relationship Specialty Start Date End Date Mily Lawrence MD PCP - General Internal Medicine 03/09/19 Ralf Gastelum MD 300 [facility] [address] [place] [address] Specialist Cardiovascular Disease 06/08/22 Gretchen Juan MD 175 [facility] 300 [place] [address] Surgeon Neurosurgery 02/13/23 Katherine Snow PA-C 175 [facility] 300 [place] [address] Specialist Neurosurgery 02/13/23 Per Leahy PA-C 175 [facility] 300 [place] [address] Specialist Neurosurgery 02/13/23 documented as of this encounter
--- OUTSIDE RECORDS SUMMARY | 2025-01-20 13:14 | XMS_ITS | Encounter Summary ---
Author Organization [facility] Address [address] [place] [address] Care Team Providers Care Shaft Repairer Name Role Phone Mily Lawrence MD Primary Care Provider [phone] Trey Mueller MD Primary Care Provider Unavaila ble Mily Lawrence MD Primary Care Provider [phone] Ralf Gastelum MD Unavailable [phone] Gretchen Juan MD Unavailable [phone] Katherine Snow PA-C Unavailable [phone] Per Leahy PA-C Unavailable [phone] Encounter Details Date Type Department Care Team Description 11/19/2018 Headlight Assembler Report Medical Records [address] [place] [address] Marci Bernardo PA-C [address] [place] [address] Social History Tobacco Use Types Packs/Day Years [...] on filedocumented in this encounter Care Teams Shaft Repairer Relationship Specialty Start Date End Date Mily Lawrence MD PCP - General Internal Medicine 03/13/17 01/01/19 Trey Mueller MD PCP - General Internal Medicine 01/02/19 03/08/19 Mily Lawrence MD PCP - General Internal Medicine 03/09/19 Ralf Gastelum MD 300 [facility] 154 [place] [address] Specialist Cardiovascular Disease 06/08/22 Gretchen Juan MD [address] [address] Surgeon Neurosurgery 02/13/23 Katherine Snow PA-C [address] [address] Specialist Neurosurgery 02/13/23 Per Leahy PA-C [address] [address] Specialist Neurosurgery 02/13/23 documented as of this encounter
--- OUTSIDE RECORDS SUMMARY | 2025-01-20 13:15 | XMS_ITS | Encounter Summary ---
Author Organization [facility] Address [address] [place] [address] Care Team Providers Care Farm Truck Driver Name Role Phone Mily Lawrence MD Primary Care Provider +1 [phone] Ralf Gastelum MD Unavailable [phone] Gretchen Juan MD Unavailable [phone] Katherine Snow PA-C Unavailable [phone] Per Leahy PA-C Unavailable [phone] Reason for Visit * Reason Comments E-prescribe Rx Request Encounter Details Date Type Department Care Team Description 10/29/2019 Refill [facility] [address] [place] [phone] Mily Lawrence MD [address] [place] [phone] E-prescribe Rx Request Social History Tobacco [...] is: Payor: [employer] FFS / Plan: [facility] [employer] / Product Type: MEDICAID RISK documented in this encounter Plan of Treatment Not on file documented as of this encounter Visit Diagnoses Not on filedocumented in this encounter Care Teams Farm Truck Driver Relationship Specialty Start Date End Date Mily Lawrence MD PCP - General Internal Medicine 03/09/19 Ralf Gastelum MD 300 [facility] [address] [place] [address] Specialist Cardiovascular Disease 06/08/22 Gretchen Juan MD 175 [facility] 300 [place] [address] Surgeon Neurosurgery 02/13/23 Katherine Snow PA-C 175 [facility] 300 [place] [address] Specialist Neurosurgery 02/13/23 Per Leahy PA-C 175 [facility] 300 [place] [address] Specialist Neurosurgery 02/13/23 documented as of this encounter
--- OUTSIDE RECORDS SUMMARY | 2025-01-20 13:15 | XMS_ITS | Encounter Summary ---
Author Organization [facility] Address [address] [place] [address] Care Team Providers Care Printed Circuit Board Panels Trimmer Name Role Phone Mily Lawrence MD Primary Care Provider [phone] Ralf Gastelum MD Unavailable [phone] Gretchen Juan MD Unavailable [phone] Katherine Snow PA-C Unavailable [phone] Per Leahy PA-C Unavailable [phone] Encounter Details Date Type Department Care Team Description 11/24/2019 Extract Operator Report Medical Records [address] [place] [address] Camilla Lopez MD Social History Tobacco Use [...] on filedocumented in this encounter Care Teams Printed Circuit Board Panels Trimmer Relationship Specialty Start Date End Date Mily Lawrence MD PCP - General Internal Medicine 03/09/19 Ralf Gastelum MD 300 [facility] [address] [place] [address] Specialist Cardiovascular Disease 06/08/22 Gretchen Juan MD 175 [facility] 300 [place] [address] Surgeon Neurosurgery 02/13/23 Katherine Snow PA-C 175 [facility] 300 [place] [address] Specialist Neurosurgery 02/13/23 Per Leahy PA-C 175 [facility] 300 [place] [address] Specialist Neurosurgery 02/13/23 documented as of this encounter
--- OUTSIDE RECORDS SUMMARY | 2025-01-20 13:15 | XMS_ITS | Encounter Summary ---
Author Organization [facility] Address [address] [place] [address] Care Team Providers Care Thread Dresser Name Role Phone Mily Lawrence MD Primary Care Provider +1 [phone] Ralf Gastelum MD Unavailable [phone] Gretchen Juan MD Unavailable [phone] Katherine Snow PA-C Unavailable [phone] Per Leahy PA-C Unavailable [phone] Reason for Visit * Reason Comments E-prescribe Rx Request Encounter Details Date Type Department Care Team Description 04/17/[facility] - [address], [address] [place] [address] Mily Lawrence MD [address] [place] [phone] E-prescribe Rx Request Social History Tobacco [...] on filedocumented in this encounter Care Teams Thread Dresser Relationship Specialty Start Date End Date Mily Lawrence MD PCP - General Internal Medicine 03/09/19 Ralf Gastelum MD 300 [facility] [address] [place] [address] Specialist Cardiovascular Disease 06/08/22 Gretchen Juan MD 175 [facility] 300 [place] [address] Surgeon Neurosurgery 02/13/23 Katherine Snow PA-C [address] [id number] Specialist Neurosurgery 02/13/23 Per Leahy PA-C [address] [address] Specialist Neurosurgery 02/13/23 documented as of this encounter
--- OUTSIDE RECORDS SUMMARY | 2025-01-20 13:15 | XMS_ITS | Encounter Summary ---
Author Organization [facility] Address [address] [place] [address] Care Team Providers Care Cable Lacer Name Role Phone Trey Mueller MD Primary Care Provider Unavaila Mily Mayen MD Primary Care Provider +[phone]- [phone] Ralf Gastelum MD Unavailable [phone] Gretchen Juan MD Unavailable [phone] Katherine Snow PA-C Unavailable [phone] Per Leahy PA-C Unavailable [phone] Encounter Details Date Type Department Care Team Description 02/24/2019 Transfer Records Medical Records [address] [place] [address] Abstract, Provider Social History Tobacco Use Types [...] on filedocumented in this encounter Care Teams Cable Lacer Relationship Specialty Start Date End Date Trey Mueller MD PCP - General Internal Medicine 01/02/19 03/08/19 Mily Lawrence MD PCP - General Internal Medicine 03/09/19 Ralf Gastelum MD 300 [facility] [address] [place] [address] Specialist Cardiovascular Disease 06/08/22 Gretchen Juan MD 175 [facility] 300 [place] [address] Surgeon Neurosurgery 02/13/23 Katherine Snow PA-C 175 [facility] 300 [place] [address] Specialist Neurosurgery 02/13/23 Per Leahy PA-C 175 [facility] 300 [place] [address] Specialist Neurosurgery 02/13/23 documented as of this encounter
--- OUTSIDE RECORDS SUMMARY | 2025-01-20 13:15 | XMS_ITS | Encounter Summary ---
Author Organization [facility] Address [address] [place] [address] Care Team Providers Care Probation And Parole Officer Name Role Phone Trey Mueller MD Primary Care Provider Unavaila Mily Mayen MD Primary Care Provider [phone] Ralf Gastelum MD Unavailable [phone] Gretchen Juan MD Unavailable [phone] Katherine Snow PA-C Unavailable [phone] Per Leahy PA-C Unavailable [phone] Encounter Details Date Type Department Care Team Description 02/26/2019 Home Health Certification Medical Records [address] [place] [address] Home, [facility] 200 [facility] 2 [place] [address] Social History Tobacco Use Types Packs/Day Years [...] on filedocumented in this encounter Care Teams Probation And Parole Officer Relationship Specialty Start Date End Date Trey Mueller MD PCP - General Internal Medicine 01/02/19 03/08/19 Mily Lawrence MD PCP - General Internal Medicine 03/09/19 Ralf Gastelum MD 300 [facility] [address] [place] [address] Specialist Cardiovascular Disease 06/08/22 Gretchen Juan MD 175 [facility] 300 [place] [address] Surgeon Neurosurgery 02/13/23 Katherine Snow PA-C 175 [facility] 300 [place] [address] Specialist Neurosurgery 02/13/23 Per Leahy PA-C 175 [facility] 300 [place] [address] Specialist Neurosurgery 02/13/23 documented as of this encounter
--- OUTSIDE RECORDS SUMMARY | 2025-01-20 13:15 | XMS_ITS | Encounter Summary ---
Author Organization [facility] Address [address] [place] [address] Care Team Providers Care Community Placement Worker Name Role Phone Mily Lawrence MD Primary Care Provider +[phone] Trey Mueller MD Primary Care Provider Unavaila ble Mily Lawrence MD Primary Care Provider [phone] Ralf Gastelum MD Unavailable [phone] Gretchen Juan MD Unavailable [phone] Katherine Snow PA-C Unavailable [phone] Per Leahy PA-C Unavailable [phone] Encounter Details Date Type Department Care Team Description 12/03/2018 Owner Operator Report Medical Records [address] [place] [address] Magdi Daniel MD [address] [place] [address] [address] [place] [address] Social History Tobacco Use Types Packs/Day Years [...] filedocumented in this encounter Care Teams Community Placement Worker Relationship Specialty Start Date End Date Mily Lawrence MD PCP - General Internal Medicine 03/13/17 01/01/19 Trey Meuller MD PCP - General Internal Medicine 01/02/19 03/08/19 Mily Lawrence MD PCP - General Internal Medicine 03/09/19 Ralf Gastelum MD 300 [facility] [address] [place] [address] Specialist Cardiovascular Disease 06/08/22 Gretchen Juan MD 175 [facility] 300 [place] [address] Surgeon Neurosurgery 02/13/23 Katherine Snow PA-C 175 [facility] 300 [place] [address] Specialist Neurosurgery 02/13/23 Per Leahy PA-C 175 [facility] 300 [place] [address] Specialist Neurosurgery 02/13/23 documented as of this encounter
--- OUTSIDE RECORDS SUMMARY | 2025-01-20 13:15 | XMS_ITS | Encounter Summary ---
Author Organization [facility] Address [address] [place] [address] Care Team Providers Care Aviation Technician Aircraft Name Role Phone Mily Lawrence MD Primary Care Provider +1 [phone] Ralf Gastelum MD Unavailable [phone] Gretchen Juan MD Unavailable [phone] Katherine Snow PA-C Unavailable [phone] Per Leahy PA-C Unavailable [phone] Encounter Details Date Type Department Care Team Description 10/28/2019 Release of Information Medical Records [address] [place] [address] Abstract, Provider Social History Tobacco Use Types [...] filedocumented in this encounter Care Teams Aviation Technician Aircraft Relationship Specialty Start Date End Date Mily Lawrence MD PCP - General Internal Medicine 03/09/19 Ralf Gastelum MD 300 [facility] [address] [place] [address] Specialist Cardiovascular Disease 06/08/22 Gretchen Juan MD [address] [facility] 300 [place] [address] Surgeon Neurosurgery 02/13/23 Katherine Snow PA-C 175 [facility] 300 [place] [address] Specialist Neurosurgery 02/13/23 Per Leahy PA-C 175 [facility] 300 [place] [address] Specialist Neurosurgery 02/13/23 documented as of this encounter
--- OUTSIDE RECORDS SUMMARY | 2025-01-20 13:15 | XMS_ITS | Encounter Summary ---
Author Organization [facility] Address [address] [place] [address] Care Team Providers Care Aircraft Communicator Name Role Phone Mily Lawrence MD Primary Care Provider [phone]- [phone] Ralf Gastelum MD Unavailable [phone] Gretchen Juan MD Unavailable [phone] Katherine Snow PA-C Unavailable [phone] Per Leahy PA-C Unavailable [phone] Encounter Details Date Type Department Care Team Description 03/16/2020 Telephone Adult [address] [id number] Mily Lawrence MD [address] [place] [phone] Social History Tobacco Use Types Packs/Day [...] filedocumented in this encounter Care Teams Aircraft Communicator Relationship Specialty Start Date End Date Mily Lawrence MD PCP - General Internal Medicine 03/09/19 Ralf Gastelum MD 300 [facility] [address] [place] [address] Specialist Cardiovascular Disease 06/08/22 Gretchen Juan MD 175 [facility] 300 [place] [address] Surgeon Neurosurgery 02/13/23 Katherine Snow PA-C 175 [facility] 300 [place] [address] Specialist Neurosurgery 02/13/23 Per Leahy PA-C 175 [facility] 300 [place] [address] Specialist Neurosurgery 02/13/23 documented as of this encounter
--- OUTSIDE RECORDS SUMMARY | 2025-01-20 13:15 | XMS_ITS | Encounter Summary ---
Author Organization [facility] Address [address] [place] [address] Care Team Providers Care Brick Machine Operator Name Role Phone Mily Lawrence MD Primary Care Provider +1 [phone] Ralf Gastelum MD Unavailable [phone] Gretchen Juan MD Unavailable [phone] Katherine Snow PA-C Unavailable [phone] Per Leahy PA-C Unavailable [phone] Reason for Visit * Reason Comments E-prescribe Rx Request Encounter Details Date Type Department Care Team Description 06/01/2020 [facility] Internal Medicine [address], [address] [place] [address] Mily Lawrence MD [address] [place] [phone] E-prescribe Rx Request Social History Tobacco [...] sciatica documented in this encounter Care Teams Brick Machine Operator Relationship Specialty Start Date End Date Mily Lawrence MD PCP - General Internal Medicine 03/09/19 Ralf Gastelum MD 300 [facility] 154 [place] [address] Specialist Cardiovascular Disease 06/08/22 Gretchen Juan MD [address] [address] Surgeon Neurosurgery 02/13/23 Katherine Snow PA-C [address] [address] Specialist Neurosurgery 02/13/23 Per Leahy PA-C 175 [facility] [address] [place] [address] Specialist Neurosurgery 02/13/23 documented as of this encounter
--- OUTSIDE RECORDS SUMMARY | 2025-01-20 13:15 | XMS_ITS | Encounter Summary ---
Author Organization [facility] Address [address] [place] [address] Care Team Providers Care Bar Manager Name Role Phone Trey Mueller MD Primary Care Provider Unavaila [facility] Mily Lawrence MD Primary Care Provider +[phone] Ralf Gastelum MD Unavailable [phone] Gretchen Juan MD Unavailable [phone] Katherine Snow PA-C Unavailable [phone] Per Leahy PA-C Unavailable [phone] Reason for Visit * Reason Comments E-prescribe Rx Request Encounter Details Date Type Department Care Team Description 03/04/2019 Refill Internal Medicine [address], [address] [place] [address] Mily Lawrence MD [address] [place] [phone] E-prescribe Rx Request Social History Tobacco [...] like script to be: PLACED IN PATIENT FACULTY RESEARCH ASSISTANT TO BE PICKED UP BY Patient WHEN [...] N/A Patients current insurance carrier is: Payor: [employer] FFS / Plan: [employer] / Product Type: MEDICAID RISK documented in this encounter Plan of Treatment Not on file documented as of this encounter Visit Diagnoses Not on filedocumented in this encounter Care Teams Bar Manager Relationship Specialty Start Date End Date Trey Mueller MD PCP - General Internal Medicine 01/02/19 03/08/19 Mily Lawrence MD PCP - General Internal Medicine 03/09/19 Ralf Gastelum MD 300 [facility] [address] [place] [address] Specialist Cardiovascular Disease 06/08/22 Gretchen Juan MD 175 [facility] 300 [place] [address] Surgeon Neurosurgery 02/13/23 Katherine Snow PA-C 175 [facility] 300 [place] [address] Specialist Neurosurgery 02/13/23 Per Leahy PA-C 175 [facility] 300 [place] [address] Specialist Neurosurgery 02/13/23 documented as of this encounter
--- OUTSIDE RECORDS SUMMARY | 2025-01-20 13:15 | XMS_ITS | Encounter Summary ---
Author Organization [facility] Address [address] [place] [address] Care Team Providers Care Canvass Manager Name Role Phone Mily Lawrence MD Primary Care Provider +[phone] Ralf Gastelum MD Unavailable [phone] Gretchen Juan MD Unavailable [phone] Katherine Snow PA-C Unavailable [phone] Per Leahy PA-C Unavailable [phone] Reason for Visit * Reason Comments E-prescribe Rx Request Encounter Details Date Type Department Care Team Description 02/01/2020 [facility] Internal Medicine [address], [address] [place] [address] Mily Lawrence MD [address] [place] [phone] E-prescribe Rx Request Social History Tobacco [...] N/A Patients current insurance carrier is: Payor: [employer]FS / Plan: [employer] [facility] / Product Type: MEDICAID RISK documented in this encounter Plan of Treatment Not on file documented as of this encounter Visit Diagnoses Not on filedocumented in this encounter Care Teams Canvass Manager Relationship Specialty Start Date End Date Mily Lawrence MD PCP - General Internal Medicine 03/09/19 Ralf Gastelum MD 300 [facility] 154 [place] [address] Specialist Cardiovascular Disease 06/08/22 Gretchen Juan MD 175 [facility] 300 [place] [address] Surgeon Neurosurgery 02/13/23 Katherine Snow PA-C 175 [facility] 300 [place] [address] Specialist Neurosurgery 02/13/23 Per Leahy PA-C 175 [facility] 300 [place] [address] Specialist Neurosurgery 02/13/23 documented as of this encounter
--- OUTSIDE RECORDS SUMMARY | 2025-01-20 13:15 | XMS_ITS | Encounter Summary ---
Author Organization [facility] Address [address] [place] [address] Care Team Providers Care Mobile Home Set Up Person Name Role Phone Trey Mueller MD Primary Care Provider Unavaila ble Mily Lawrence MD Primary Care Provider +[phone]- [phone] Ralf Gastelum MD Unavailable [phone] Gretchen Juan MD Unavailable [phone] Katherine Snow PA-C Unavailable [phone] Per Leahy PA-C Unavailable [phone] Encounter Details Date Type Department Care Team Description 03/04/2019 Orders Only Internal Medicine - [address], [address] [place] [address] Trey Mueller MD Acute deep vein thrombosis (DVT) of popliteal vein, unspecified laterality (HCC) (Primary Dx) Social History Tobacco Use Types [...] as of this encounter Visit Diagnoses Diagnosis Acute deep vein thrombosis (DVT) of popliteal vein, unspecified laterality (HCC)- Primary documented in this encounter Care Teams Mobile Home Set Up Person Relationship Specialty Start Date End Date Trey Mueller MD PCP - General Internal Medicine 01/02/19 03/08/19 Mily Lawrence MD PCP - General Internal Medicine 03/09/19 Ralf Gastelum MD [address] [address] Specialist Cardiovascular Disease 06/08/22 Gretchen Juan MD [address] [address] Surgeon Neurosurgery 02/13/23 Katherine Snow PA-C [address] [address] Specialist Neurosurgery 02/13/23 Per Leahy PA-C [address] [address] Specialist Neurosurgery 02/13/23 documented as of this encounter
--- OUTSIDE RECORDS SUMMARY | 2025-01-20 13:15 | XMS_ITS | Encounter Summary ---
Author Organization [facility] Address [address] [place] [address] Care Team Providers Care Accounts Receivable Assistant Name Role Phone Trey Mueller MD Primary Care Provider Unavaila Mily Mayen MD Primary Care Provider [phone] Ralf Gastelum MD Unavailable [phone] Gretchen Juan MD Unavailable [phone] Katherine Snow PA-C Unavailable [phone] Per Leahy PA-C Unavailable [phone] Reason for Visit * Reason Onset Date Comments preop exam 01/23/2019 Encounter Details Date Type Department Care Team Description 01/23/2019 Telephone Internal Medicine - [address], [address] [place] [address] Trey Mueller MD preop exam Social History [...] asking about rescheduling her pre-op to the [facility] if there is availabilityprior to Saturday01/30/19 [...] on filedocumented in this encounter Care Teams Accounts Receivable Assistant Relationship Specialty Start Date End Date Trey Mueller MD PCP - General Internal Medicine 01/02/19 03/08/19 Mily Lawrence MD PCP - General Internal Medicine 03/09/19 Ralf Gastelum MD [address] [facility] [address] [place] [address] Specialist Cardiovascular Disease 06/08/22 Gretchen Juan MD 175 [facility] [address] [place] [address] Surgeon Neurosurgery 02/13/23 Katherine Snow PA-C [address] [id number] Specialist Neurosurgery 02/13/23 Per Leahy PA-C 175 [facility] [address] [place] [id number] Specialist Neurosurgery 02/13/23 documented as of this encounter
--- OUTSIDE RECORDS SUMMARY | 2025-01-20 13:15 | XMS_ITS | Encounter Summary ---
Author Organization [facility] Address [address] [place] [address] Care Team Providers Care Lump Inspector Name Role Phone Mily Lawrence MD Primary Care Provider [phone] Ralf Gastelum MD Unavailable [phone] Gretchen Juan MD Unavailable [phone] Katherine Snow PA-C Unavailable [phone] Per Leahy PA-C Unavailable [phone] Encounter Details Date Type Department Care Team Description 03/07/2020 Business Services Officer Report Medical Records [address] [place] [id number] Evelio Smith Social History Tobacco Use Types [...] on filedocumented in this encounter Care Teams Lump Inspector Relationship Specialty Start Date End Date Mily Lawrence MD PCP - General Internal Medicine 03/09/19 Ralf Gastelum MD 300 [facility] [address] [place] [address] Specialist Cardiovascular Disease 06/08/22 Gretchen Juan MD 175 [facility] 300 [place] [address] Surgeon Neurosurgery 02/13/23 Katherine Snow PA-C 175 [facility] 300 [place] [address] Specialist Neurosurgery 02/13/23 Per Leahy PA-C 175 [facility] 300 [place] [address] Specialist Neurosurgery 02/13/23 documented as of this encounter
--- OUTSIDE RECORDS SUMMARY | 2025-01-20 13:15 | XMS_ITS | Encounter Summary ---
Author Organization [facility] Address [address] [place] [address] Care Team Providers Care Sales Floor Associate Name Role Phone Trey Mueller MD Primary Care Provider Unavaila ble Mily Lawrence MD Primary Care Provider [phone] Ralf Gastelum MD Unavailable [phone] Gretchen Juan MD Unavailable [phone] Katherine Snow PA-C Unavailable [phone] Per Leahy PA-C Unavailable [phone] Reason for Visit * Reason Onset Date Comments DME Request 02/16/2019 Encounter Details Date Type Department Care Team Description 02/16/2019 Telephone Internal Medicine - [address], [address] [place] [address] Trey Mueller MD DME Request Social History [...] in [place] d/t no available appts at [facility]. D/T Total knee surgery surgery patient is having issues with urinary incontinence. She is concernedabout falling trying to barnes to the bathroom. Would you consider writing a rx for urinary incontinence pads? Thank you Alyce Vázquez pattern technician Manager with [facility] [employer] @ [facility] [id number] documented in this encounter Plan of Treatment Not on file documented as of this encounter Visit Diagnoses Diagnosis Mixed stress and urge urinary incontinence- Primary Mixed incontinence urge and stress (male)(female) documented in this encounter Care Teams Sales Floor Associate Relationship Specialty Start Date End Date Trey Mueller MD PCP - General Internal Medicine 01/02/19 03/08/19 Mily Lawrence MD PCP - General Internal Medicine 03/09/19 Ralf Gastelum MD [address] [place] [address] Specialist Cardiovascular Disease 06/08/22 Gretchen Juan MD [address] [address] Surgeon Neurosurgery 02/13/23 Katherine Snow PA-C [address] [address] Specialist Neurosurgery 02/13/23 Per Leahy PA-C [address] [address] Specialist Neurosurgery 02/13/23 documented as of this encounter
--- OUTSIDE RECORDS SUMMARY | 2025-01-20 13:15 | XMS_ITS | Encounter Summary ---
Author Organization [facility] Address [address] [place] [address] Care Team Providers Care Bat Person Name Role Phone Mily Lawrence MD Primary Care Provider [phone] Trey Mueller MD Primary Care Provider Unavaila ble Mily Lawrence MD Primary Care Provider [phone] Ralf Gastelum MD Unavailable [phone] Gretchen Juan MD Unavailable [phone] Katherine Snow PA-C Unavailable [phone] Per Leahy PA-C Unavailable [phone] Encounter Details Date Type Department Care Team Description 12/23/2018 Orders Only General Surgery [address] [place] [address] Irish Snow NP Abnormal finding on imaging [...] cancer documented in this encounter Care Teams Bat Person Relationship Specialty Start Date End Date Mily Lawrence MD PCP - General Internal Medicine 03/13/17 01/01/19 Trey Mueller MD PCP - General Internal Medicine 01/02/19 03/08/19 Mily Lawrence MD PCP - General Internal Medicine 03/09/19 Ralf Gastelum MD 300 [facility] [address] [place] [address] Specialist Cardiovascular Disease 06/08/22 Gretchen Juan MD 175 [facility] 300 [place] [address] Surgeon Neurosurgery 02/13/23 Katherine Snow PA-C 175 [facility] 300 [place] [address] Specialist Neurosurgery 02/13/23 Per Leahy PA-C 175 [facility] 300 [place] [address] Specialist Neurosurgery 02/13/23 documented as of this encounter
--- OUTSIDE RECORDS SUMMARY | 2025-01-20 13:15 | XMS_ITS | Encounter Summary ---
Author Organization [facility] Address [address] [place] [address] Care Team Providers Care Map Mounter Name Role Phone Mily Lawrence MD Primary Care Provider [phone] Ralf Gastelum MD Unavailable [phone] Gretchen Juan MD Unavailable [phone] Katherine Snow PA-C Unavailable [phone] Per Leahy PA-C Unavailable [phone] Encounter Details Date Type Department Care Team Description 11/13/2019 SCAN Medical Records [address] [place] [address] Eran Alfaro MD Social History Tobacco Use [...] on filedocumented in this encounter Care Teams Map Mounter Relationship Specialty Start Date End Date Mily Lawrence MD PCP - General Internal Medicine 03/09/19 Ralf Gastelum MD 300 [facility] [address] [place] [address] Specialist Cardiovascular Disease 06/08/22 Gretchen Juan MD 175 [facility] 300 [place] [address] Surgeon Neurosurgery 02/13/23 Katherine Snow PA-C 175 [facility] 300 [place] [address] Specialist Neurosurgery 02/13/23 Per Leahy PA-C 175 [facility] 300 [place] [address] Specialist Neurosurgery 02/13/23 documented as of this encounter
--- OUTSIDE RECORDS SUMMARY | 2025-01-20 13:15 | XMS_ITS | Encounter Summary ---
Author Organization [facility] Address [address] [place] [address] Care Team Providers Care Shop Lead Name Role Phone Mily Lawrence MD Primary Care Provider [phone] Trey Mueller MD Primary Care Provider Unavaila ble Mily Lawrence MD Primary Care Provider [phone] Ralf Gastelum MD Unavailable [phone] Gretchen Juan MD Unavailable [phone] Katherine Snow PA-C Unavailable [phone] Per Leahy PA-C Unavailable [phone] Encounter Details Date Type Department Care Team Description 12/18/2018 Orders Only General Surgery [address] [place] [address] Irish Snow NP Family history of breast cancer; At high risk for breast cancer Social [...] Procedure Name Priority Date/Time Associated Diagnosis Comments CHG MRI BREAST WITHOUT&WITH CONTRAST W/CAD BILATERAL Routine 12/17/2018 Family history of breast cancer At high risk for breast cancer documented in this encounter Results * MRI BREAST W/WO CONTRAST W/CAD BILATERAL (12/17/2018) Irish Snow NP MRI documented in this encounter Visit Diagnoses Diagnosis Family history of breast cancer Family history of malignant neoplasm of breast At high risk for breast cancer documented in this encounter Care Teams Shop Lead Relationship Specialty Start Date End Date Mily Lawrence MD PCP - General Internal Medicine 03/13/17 01/01/19 Trey Mueller MD PCP - General Internal Medicine 01/02/19 03/08/19 Mily Lawrence MD PCP - General Internal Medicine 03/09/19 Ralf Gastelum MD 300 [facility] [address] [place] [address] Specialist Cardiovascular Disease 06/08/22 Gretchen Juan MD 175 [facility] 300 [place] [address] Surgeon Neurosurgery 02/13/23 Katherine Snow PA-C 175 [facility] 300 [place] [address] Specialist Neurosurgery 02/13/23 Per Leahy PA-C 175 [facility] 300 [place] [address] Specialist Neurosurgery 02/13/23 documented as of this encounter
--- OUTSIDE RECORDS SUMMARY | 2025-01-20 13:15 | XMS_ITS | Encounter Summary ---
Author Organization [facility] Address [address] [place] [address] Care Team Providers Care Leaf Blender Name Role Phone Trey Mueller MD Primary Care Provider Unavaila ble Mily Lawrence MD Primary Care Provider [phone] Ralf Gastelum MD Unavailable [phone] Gretchen Juan MD Unavailable [phone] Katherine Snow PA-C Unavailable [phone] Per Leahy PA-C Unavailable [phone] Encounter Details Date Type Department Care Team Description 03/06/2019 Packaging Manager Report Medical Records [address] [place] [address] Magdi Daniel MD [address] [place] [address] [place] [address] Social History Tobacco Use Types Packs/Day Years [...] on filedocumented in this encounter Care Teams Leaf Blender Relationship Specialty Start Date End Date Trey uMeller MD PCP - General Internal Medicine 01/02/19 03/08/19 Mily Lawrence MD PCP - General Internal Medicine 03/09/19 Ralf Gastelum MD 300 [facility] [address] [place] [address] Specialist Cardiovascular Disease 06/08/22 Gretchen Juan MD 175 [facility] 300 [place] [address] Surgeon Neurosurgery 02/13/23 Katherine Snow PA-C 175 [facility] 300 [place] [address] Specialist Neurosurgery 02/13/23 Per Leahy PA-C 175 [facility] 300 [place] [address] Specialist Neurosurgery 02/13/23 documented as of this encounter
--- OUTSIDE RECORDS SUMMARY | 2025-01-20 13:15 | XMS_ITS | Encounter Summary ---
Author Organization [facility] Address [address] [place] [address] Care Team Providers Care Storeroom Supervisor Name Role Phone Trey Mueller MD Primary Care Provider Unavaila Mily Mayen MD Primary Care Provider [phone] Ralf Gastelum MD Unavailable [phone] Gretchen Juan MD Unavailable [phone] Katherine Snow PA-C Unavailable [phone] Per Leahy PA-C Unavailable [phone] Reason for Visit * Reason Onset Date Comments refill request 03/04/2019 Encounter Details Date Type Department Care Team Description 03/04/2019 Refill Internal Medicine - [address], [address] [place] [address] Trey Mueller MD refill request Social History [...] on filedocumented in this encounter Care Teams Storeroom Supervisor Relationship Specialty Start Date End Date Trey Mueller MD PCP - General Internal Medicine 01/02/19 03/08/19 Mily Lawrence MD PCP - General Internal Medicine 03/09/19 Ralf Gastelum MD 300 [facility] [address] [place] [address] Specialist Cardiovascular Disease 06/08/22 Gretchen Juan MD 175 [facility] 300 [place] [address] Surgeon Neurosurgery 02/13/23 Katherine Snow PA-C [address] [address] Specialist Neurosurgery 02/13/23 Per Leahy PA-C [address] [address] Specialist Neurosurgery 02/13/23 documented as of this encounter
--- OUTSIDE RECORDS SUMMARY | 2025-01-20 13:15 | XMS_ITS | Encounter Summary ---
Author Organization [facility] Address [address] [place] [address] Care Team Providers Care Depot Manager Name Role Phone Mily Lawrence MD Primary Care Provider [phone] Trey Mueller MD Primary Care Provider Unavaila ble Mily Lawrence MD Primary Care Provider [phone] Ralf Gastelum MD Unavailable [phone] Gretchen Juan MD Unavailable [phone] Katherine Snow PA-C Unavailable [phone] Per Leahy PA-C Unavailable [phone] Encounter Details Date Type Department Care Team Description 12/19/2018 Mds Coordinator Report Medical Records [address] [place] [address] Evelio Smith Social History Tobacco Use Types [...] on filedocumented in this encounter Care Teams Depot Manager Relationship Specialty Start Date End Date Mily aLwrence MD PCP - General Internal Medicine 03/13/17 01/01/19 Trey Mueller MD PCP - General Internal Medicine 01/02/19 03/08/19 Mily Lawrence MD PCP - General Internal Medicine 03/09/19 Ralf Gastelum MD 300 [facility] [address] [place] [address] Specialist Cardiovascular Disease 06/08/22 Gretchen Juan MD [address] [address] Surgeon Neurosurgery 02/13/23 Katherine Snow PA-C [address] [address] Specialist Neurosurgery 02/13/23 Per Leahy PA-C [address] [address] Specialist Neurosurgery 02/13/23 documented as of this encounter
--- OUTSIDE RECORDS SUMMARY | 2025-01-20 13:15 | XMS_ITS | Clinical Summary ---
Author Organization [facility] Address [address] [place] [address] Phone Care Team Providers Care Collet Driller Name Role Phone Michael Lawrence MD Primary Care Provider [phone] Allergies Active Allergy Reactions Criticality Noted Date [...] day. 90 tablet 2 09/24/20 24 Active traZODone (DESYREL) 50 mg tablet TAKE 1 TABLET BY MOUTH EVERYDAY AT BEDTIME 90 tablet 1 11/19/19 25 Active cholecalcifero l (VITAMIN D-3) 50 mcg (2,000 unit) capsule TAKE 1 CAPSULE BY MOUTH EVERY DAY 90 capsule 3 11/19/19 25 Active sertraline (ZOLOFT) 100 mg tablet TAKE 1 TABLET BY MOUTH EVERY DAY 84 tablet 2 11/19/19 25 Active thiamine 100 mg tablet Take 1 tablet (100 mg total) by mouth 1 (one) time each day. 210 tablet 1 12/14/19 25 Active omeprazole (PriLOSEC) [address] capsule TAKE 1 CAPSULE BY MOUTH EVERY DAY 28 capsule 2 01/19/20 25 Active Daily-Michelle, with folic acid, 400 mcg tablet TAKE 1 TABLET BY MOUTH EVERY DAY 28 tablet 2 01/19/20 25 Active Vitamin B-6 250 mg tablet TAKE 1 TABLET BY MOUTH EVERY DAY 28 tablet 2 01/19/20 25 Active melatonin 3 mg tablet TAKE 1 TABLET BY MOUTH EVERYDAY AT BEDTIME 28 tablet 2 01/19/20 25 Active celecoxib (CeleBREX) 200 mg capsuleIndicat ions:Presence of left artificial knee joint TAKE 1 CAPSULE BY MOUTH TWICE A DAY NEEDED FOR PAIN WITH FOOD AND STAY HYDRATED 60 capsule 3 01/19/20 25 Active celecoxib (CeleBREX) 200 mg capsuleIndicat ions:Presence of left artificial knee joint TAKE 1 CAPSULE BY MOUTH TWICE A DAY NEEDED FOR PAIN WITH FOOD AND STAY HYDRATED 56 capsule 3 09/28/20 24 025 Discontinued omeprazole (PriLOSEC) [address] capsule TAKE 1 CAPSULE BY MOUTH EVERY DAY 30 capsule 2 10/22/19 25 025 Discontinued Daily-Michelle, with folic acid, 400 mcg tablet TAKE 1 TABLET BY MOUTH EVERY DAY 30 tablet 2 10/22/19 25 025 Discontinued Vitamin B-6 250 mg tablet TAKE 1 TABLET BY MOUTH EVERY DAY 30 tablet 2 10/22/19 25 025 Discontinued melatonin 3 mg tablet TAKE 1 TABLET BY MOUTH EVERYDAY AT BEDTIME 28 tablet 2 10/22/19 25 025 Discontinued Hospital, Clinic, or Other Facility Administered Medication Ordered Dose Route Frequency Start Date End Date Status BUPivacaine HCl (MARCAINE) 0.5 % injection 3 mLIndications:Chroni c pain of both shoulders,Nontraumat ic incomplete tear of right rotator cuff,Arthritis of right glenohumeral joint,Rotator cuff syndrome of left shoulder 3 mL inj Once PRN Procedure 12/30/2024 12/30/2024 Ended BUPivacaine HCl (MARCAINE) 0.5 % injection 3 mLIndications:Chroni c pain of both shoulders,Nontraumat ic incomplete tear of right rotator cuff,Arthritis of right glenohumeral joint,Rotator cuff syndrome of left shoulder 3 mL inj Once PRN Procedure 12/30/2024 12/30/2024 Ended lidocaine (XYLOCAINE) 1 % injection 3 mLIndications:Chroni c pain of both shoulders,Nontraumat ic incomplete tear of right rotator cuff,Arthritis of right glenohumeral joint,Rotator cuff syndrome of left shoulder 3 mL inj Once PRN Procedure 12/30/2024 12/30/2024 Ended lidocaine (XYLOCAINE) 1 % injection 3 mLIndications:Chroni c pain of both shoulders,Nontraumat ic incomplete tear of right rotator cuff,Arthritis of right glenohumeral joint,Rotator cuff syndrome of left shoulder 3 mL inj Once PRN Procedure 12/30/2024 12/30/2024 Ended triamcinolone acetonide (KENALOG-40) 40 mg/mL injection 40 mgIndications:Chroni c pain of both shoulders,Nontraumat ic incomplete tear of right rotator cuff,Arthritis of right glenohumeral joint,Rotator cuff syndrome of left shoulder 40 mg IAtc Once PRN Procedure 12/30/2024 12/30/2024 Ended triamcinolone acetonide (KENALOG-40) 40 mg/mL injection 40 mgIndications:Chroni c pain of both shoulders,Nontraumat ic incomplete tear of right rotator cuff,Arthritis of right glenohumeral joint,Rotator cuff syndrome of left shoulder 40 mg IAtc Once PRN Procedure 12/30/2024 12/30/2024 Ended lidocaine (XYLOCAINE) 1 % injection 0.5 mLIndications:Trigge r finger of right thumb .5 mL inj Once PRN Procedure 01/04/2025 01/04/2025 Ended lidocaine (XYLOCAINE) 1 % injection 0.5 mLIndications:Trigge r ring finger of right hand .5 mL inj Once PRN Procedure 01/04/2025 01/04/2025 Ended triamcinolone acetonide (KENALOG-40) 40 mg/mL injection 40 mgIndications:Trigge r finger of right thumb 40 mg IAtc Once PRN Procedure 01/04/2025 01/04/2025 Ended triamcinolone acetonide (KENALOG-40) 40 mg/mL injection 40 mgIndications:Trigge r ring finger of right hand 40 mg IAtc Once PRN Procedure 01/04/2025 01/04/2025 Ended Active Problems Problem Noted Date Diagnosed Date Rotator cuff syndrome of left shoulder Arthritis of right glenohumeral joint 12/28/2024 Nontraumatic incomplete tear of right rotator cu ff 12/28/2024 Chronic pain of both shoulders 12/28/2024 Status post total left knee replacement 10/06/20 [...] spinal instrumentation performed by Dr. Hayward at [facility] in [place]. This the surgery, she has been a patient in rehab at [address] [place] [address]. While there, she is participating in physical [...] apnea 01/30/2018 Overview (08/07/2024): On CPAP started 2017 Hyperlipidemia 12/07/2017 Breast microcalcification, mammographic 10/21/19 18 Essential hypertension 03/14/2017 GERD (gastroesophageal reflux disease) 6 Depression with anxiety 01/12/2016 Insomnia 06/09/2015 Vitamin D deficiency 02/15/2015 Encounters Date Type Department Care Team Description 01/04/2025 4:00 PM EDT Office Visit [facility] 175 [facility] [address] [place] [phone] Marci Bernardo PA Trigger finger of right thumb (Primary Dx); Trigger ring finger of right hand 12/30/2024 3:00 PM EDT Office Visit [facility] 160 [address] [facility] [address] [place] [phone] Aida White PA Chronic pain of both shoulders (Primary Dx); Nontraumatic incomplete tear of right rotator cuff; Arthritis of right glenohumeral joint; Rotator cuff syndrome of left shoulder 12/22/2024 Telephone [facility] 160 [address] [facility] [address] [place] [phone] Aida White PA 12/21/2024 Telephone [facility] 160 [address] [facility] [address] [place] [address] Aida White PA 12/17/2024 Telephone [facility] [address] [phone] Aida White PA from Last 3 Months Immunizations Name Administration Dates Next Due Hepatitis B (Uahgh[employer]-K-Otebe , Recombivax HB-Adult) 19yo and older 10/27/2019,05/26/2019,04/22/2019 [...] [facility]); Service: Spine; Laterality: N/A; NECK SURGERY 2007 PROCEDURE: HISTORICAL NECK SURGERY; COMMENT: C-spine; arthrodesis HAND SURGERY 1989 Bilateral PROCEDURE: HISTORICAL HAND SURGERY; COMMENT: right tendo repair; left thumb x2; region with pins in place TUBAL LIGATION 2007 PROCEDURE: HISTORICAL TUBAL LIGATION OTHER SURGICAL HISTORY 09/2017 PROCEDURE: CO ARTHRD ANT INTERBODY MIN DSC LUMBAR COLONOSCOPY 2017 PROCEDURE: HISTORICAL COLONOSCOPY TOTAL KNEE ARTHROPLASTY 02/03/2019 Right PROCEDURE: HISTORICAL TOTAL KNEE REPLACE BREAST BIOPSY 10/08/2013 PROCEDURE: CO BX BREAST NEEDLE CORE W/O IMAGING GUIDANCE [...] vein thrombosis (CMS/HCC) D X:Deep vein thrombosis (HCC);COMMENT:right knee after surgery Sleep apnea 01/30/2018 DX:Sleep [...] replacement; COMMENT: 01/2019 DVT (deep venous thrombosis) ([facility]) 04/01/2019 DX:DVT (deep venous thrombos is) ([facility]); COMMENT: 02/2019 on Xarelto Epigastric pain DX:Epigastric [...] drink = 0.6 oz pur e alcohol) Housing Instability Answer Date Recorde d Are you worried that in the next 2 months you may not have stable housing? No 12/22/2024 Food Access & Nutrition Answer Date Rec orded Do you have access to a vari ety of food including fruits and vegetables? No 12/22/2024 Access to Healthcare Answer Date Record ed Within the last 3 months, ho w many times did you visit the emergency department for your medical care? 0 12/22/2024 Health Literacy Answer Date Recorded How often do you need to hav e someone help you when you read instructions, pamphlets, or other written material from your doctor or pharmacy? Never 12/22/2024 Caregiver: How often do you need to have someone help you when you read instructions, pamphlets, or other written material from your doctor or pharmacy? Not on file 12/22/2024 Financial Risk Answer Date Recorded How hard is it for you to pa y for the very basics like food, housing, medical care, and air conditioning / heating? Not very hard 12/22/2024 Transportation Answer Date Recorded Has the lack of transportati on kept you from meetings, work, or from getting things needed for daily living? No Has the lack of transportati on kept you from medical appointments or from getting medications? No 12/22/2024 Social Isolation Answer Date Recorded How often do you feel lonely or isolated from th ose around you? Often 12/22/2024 Food Risk Answer Date Recorded Within the past 12 months we worried whether our food would run out before we got money to buy more. Sometimes true 025 Within the past 12 months th e food we bought just didn't last and we didn't have money to get more. Sometimes true 12/22/2024 Dependent Care Answer Date Recorded Do you need help finding or paying for care for your loved ones. For example, director of early childhood education or elderly care for an older adult? No 12/22/2024 Education Answer Date Recorded Do you think completing more education or training, like finishing a GED, going to college, or learning a trade, would be helpful for you? N/A 12/22/2024 Employment and Income Answer Date Recor ded During the last four weeks, have you been actively looking for work? No 12/22/2024 Living Situation Answer Date Recorded What is your living situation? 0 12/22/2024 Comments Unknown Sex and Gender Information Value [...] EST Inhaled Oxygen Concentration - - Weight 89 kg (196 lb 3.4 oz) 01/04/2025 3:56 PM EDT Height 162.6 cm (5' 4 ) 01/04/2025 3:56 PM EDT Body Mass Index 33.68 01/04/2025 3:56 PM EDT Plan of Treatment Upcoming Encounters Date Type Department Care Team (Late st Contact Info) Description 02/09/2025 2:30 PM EDT Office Visit [facility] [address] [facility] [address] [place] [address] Ralf Gastelum MD [address] [facility] [address] [place] [address] 02/10/2025 11:30 AM EDT Office Visit Internal Medicine - [place] [address] [facility] [address] [place] [phone] Jessa Gandhi NP 175 [facility] 200 [place] [address] 03/03/2025 3:30 PM EDT Office Visit Orthopedic Surgery - [facility] 250 [address] [facility] [address] [place] [phone] Brian Ferrari MD 175 [facility] [address] [place] [address] 03/04/2025 3:30 PM EDT Office Visit [facility]opedic Surgery - [place] [address] [facility] [address] [place] [phone] Brian Ferrari MD 175 [facility] [address] [place] [address] 03/12/2025 3:30 PM EDT Office Visit [facility] - [place] 160 175 [facility] 160 [place] [phone] Aida White PA 175 [facility] 160 [place] [address] Health Maintenance Due Date Last Done Comments DTaP,Tdap,and Td Vaccines (1 - Tdap) 1986 Pneumococcal Vaccine: 50+ Years (2 of 2 - PCV) 2017 02/05/2008 Zoster Vaccines (1 of 2) 2017 Medicare Annual Wellness Visit 09/29/2022 COVID-19 Vaccine ( season) 2024 08/20/2022, 02/27/2022, 09/22/2021, Additional history exists Influenza Vaccine (Season Ended) 2025 08/20/2022, 07/21/2021, 07/22/2020, Additional history exists Hypertension/CHF/CAD Annual BMP Blood Test 07/19/2025 07/19/2024, 07/19/2024, 07/02/2024, Additional history exists Breast Cancer Screening 10/29/2025 10/29/19 24, 09/28/2022, 09/07/2020, Additional history exists Depression Screening 12/22/2025 12/22/2024, 05/11/20 Social Influencers of Health Screening 12/22/2025 12/22/2024 Cervical Cancer Screening: HPV 07/13/2026 07/13/2021 Colorectal [...] this topic Medical Devices Implanted Type Area House Wirer Device Identifier Shelf Expiration Date Model / Serial / Lot Putty Vesuvius 100 5ml Stry-K2m [id number] - [id number] Implanted:Qty: 1 on 07/16/2024 by Nathan Hayward MD N/A: Spine Lumbar LAXMI SPINE 02/17/2027 [id number] / [id number] / Bone Graft Spine Infus Xsm Medt-Sofa [id number] Implanted:Qty: 1 on 07/16/2024 by Nathan Hayward MD N/A: Spine Lumbar [employer] SOFAMOR DANEK 11/20/2025 [id number] / / [id number] Heidrick Interbody System Implanted:Qty: 1 on 07/16/2024 by Nathan Hayward MD N/A: Spine Lumbar LAXMI - MEDICAL 10/30/2028 [id number] / / [id number] [address] [place] [address] 2hl 18mm Stry-K2m [id number] Implanted:Qty: 1 on 07/16/2024 by Nathan Hayward MD N/A: Spine Lumbar LAXMI SPINE [id number] / / 5.0x40mm Screw Implanted:Qty: 2 on 07/16/2024 by Nathan Hayward MD N/A: Spine Lumbar LAXMI - MEDICAL [id number] / / Plate Assembly Screw Implanted:Qty: 1 on 07/16/2024 by Nathan Hayward MD N/A: Spine Lumbar LAXMI - MEDICAL [id number] / / Procedures Procedure Name Priority Date/Time Associated Diagnosis Comments CO INJECTION SINGLE TENDON SHEATH OR LIGAMENT APONEUROSIS Routine 01/04/2025 4:00 PM EDT Trigger ring finger of right hand CO INJECTION SINGLE TENDON SHEATH OR LIGAMENT APONEUROSIS Routine 01/04/2025 4:00 PM EDT Trigger finger of right thumb XR SHOULDER 2+ VIEWS RIGHT Routine 12/30/2024 3:51 PM EDT Pain CO ARTHROCENTESIS/ASPIR ATION/INJECTION MAJOR JOINT/BURSA W/O U/S GUIDANCE Routine 12/30/2024 3:00 PM EDT Chronic pain of both shoulders Nontraumatic incomplete tear of right rotator cuff Arthritis of right glenohumeral joint Rotator cuff syndrome of left shoulder EXTERNAL MRI REPORT 12/26/2024 EXTERNAL MRI REPORT 12/26/2024 EXTERNAL CLINICAL LAB 12/01/2024 EXTERNAL CLINICAL LAB 12/01/2024 EXTERNAL CLINICAL LAB 12/01/2024 DEPRESSION SCREENING Routine 05/11/2024 ANNUAL BMP BLOOD TEST Routine 02/06/2024 LIPID PANEL Routine 12/09/2023 BACILIO SCREENING DIGITAL Routine 10/29/2023 4:40 PM EST Encounter for screening mammogram for malignant neoplasm of breast HEPATITIS C SCREENING Routine 08/05/2023 HIV SCREENING Routine 08/05/2023 HPV Routine 07/13/2021 COLONOSCOPY Routine 03/24/2018 from Last 3 Months or Most Recently Relevant to Health Maintenance Results * CO INJECTION SINGLE TENDON SHEATH OR LIGAMENT APONEUROSIS (01/04/2025 4:00 PM EDT) Marci Babin PA - 01/04/2025 4:00 PM EDT JOHN Sanchez ? 01/05/2025 12:25 PM Hand / UE Inj/Asp: R ring A1 for trigger finger Indications: pain Details: 25 G needle, volar approach Medications: 40 mg triamcinolone acetonide 40 mg/mL; 0.5 mL lidocaine 1 % Informed Consent: ??Laterality: ??Right ??Relevant images/test results available and reviewed: yes ?Health status cleared: ??Yes ??Procedure/treatment, purpose, treatment alternatives, risks/potential complications and benefits explained: yes ?Risk/complications/benefits details: ??Risks of infection, thinning of the skin and temporary skin discoloration discussed. ??Discussed risks of temporary increased pain after injection and swelling and mild redness at injection site for couple days. ??Explained occasionally cortisone injection can cause facial flushing temporarily. ??Benefits pain management. ??For postop injection pain ice, Tylenol and/or NSAIDs if patient can take ??Patient questions answered: yes ?Patient agrees, verbalizes understanding, and wants to proceed: yes ?Consent given by: ??Patient ??Informed consent discussion completed by Physician/TESFAYE with patient: ?? Verbal ??Pre-procedure timeout performed: yes ?? us Marci LOPEZ IN CLINIC/BEDSIDE ORDERABLES Final Result * CO INJECTION SINGLE TENDON SHEATH OR LIGAMENT APONEUROSIS (01/04/2025 4:00 PM EDT) Marci Babin PA - 01/04/2025 4:00 PM EDT JOHN Sanchez ? 01/05/2025 12:25 PM Hand / UE Inj/Asp: R thumb A1 for trigger finger Indications: pain Details: 25 G needle, volar approach Medications: 40 mg triamcinolone acetonide 40 mg/mL; 0.5 mL lidocaine 1 % Informed Consent: ??Laterality: ??Right ??Relevant images/test results available and reviewed: yes ?Health status cleared: ??Yes ??Procedure/treatment, purpose, treatment alternatives, risks/potential complications and benefits explained: yes ?Risk/complications/benefits details: ??Risks of infection, thinning of the skin and temporary skin discoloration discussed. ??Discussed risks of temporary increased pain after injection and swelling and mild redness at injection site for couple days. ??Explained occasionally cortisone injection can cause facial flushing temporarily. ??Benefits pain management. ??For postop injection pain ice, Tylenol and/or NSAIDs if patient can take ??Patient questions answered: yes ?Patient agrees, verbalizes understanding, and wants to proceed: yes ?Consent given by: ??Patient ??Informed consent discussion completed by Physician/TESFAYE with patient: ?? Verbal ??Pre-procedure timeout performed: yes ?? us Marci LOPEZ IN CLINIC/BEDSIDE ORDERABLES Final Result * XR Shoulder 2+ Views Right (12/30/2024 3:51 PM EDT) Anatomical Region Laterality Modality Upper Extremities, Shoulder Right Comp uted Radiography Narrative 12/30/2024 4:02 PM EDT Date of Visit: 12/30/24 Reason for visit: ?? Right shoulder pain Views: AP, Grashey, Y-view, and Axillary right shoulder Comparison: ??07/11/23 Findings: Continued glenohumeral joint space narrowing without significant progression since 2022. ??There is progression and inferior humeral periarticular osteophyte formation as compared to 2022. No soft tissue calcifications noted no acute bony pathology noted Impression: Right shoulder: Intact right shoulder with moderate degenerative changes of the glenohumeral joint as noted above Read by: Aida White PA-C us Aida LOPEZ IMG XR PROCEDURES Final Resul t * CO ARTHROCENTESIS/ASPIRATION/INJECTION MAJOR JOINT/BURSA W/O U/S GUIDANCE (12/30/2024 3:00 PM EDT) Narrative Aida White PA - 12/30/2024 3:00 PM EDT JOHN Hamm ? 12/30/2024 ??4:48 PM L Inj/Asp: bilateral subacromial bursa Indications: pain Details: 22 G needle, posterior approach Medications (Right): 3 mL BUPivacaine HCl 0.5 %; 3 mL lidocaine 1 %; 40 mg triamcinolone acetonide 40 mg/mL Medications (Left): 3 mL BUPivacaine HCl 0.5 %; 3 mL lidocaine 1 %; 40 mg triamcinolone acetonide 40 mg/mL Informed Consent: ??Site: ??Subacromial injection ??Laterality: ??Bilateral ??Relevant images/test results available and reviewed: yes ?Health status cleared: ??N/A ??Procedure/treatment, purpose, treatment alternatives, risks/potential complications and benefits explained: yes ?Risk/complications/benefits details: ??Risks and benefits associated with the injection reviewed which can include but not limited to infection, bleeding, bruising, transient synovitis, no improvement in symptoms. ??Patient questions answered: yes ?Patient agrees, verbalizes understanding, and wants to proceed: yes ?Consent given by: ??Patient ??Informed consent discussion completed by Physician/TESFAYE with patient: ?? Verbal and written; patient signed and dated; copy to patient (verbal consent) ??Pre-procedure timeout performed: yes ?? Aida LOPEZ IN CLINIC/BEDSIDE ORDERABLES Final Result * External MRI Report (12/26/2024) Only the most recent of2 resultswithin the time period is included. Anatomical Region Laterality Modality Magnetic Resonan ce Provider [facility] IMG MRI PROCEDURES Final Result * External clinical lab (12/01/2024) Only the most recent of3 resultswithin the time period is included. Provider [facility] LAB BLOOD ORDERABLES Fin al Result * Depression Screening (05/11/2024) Depression Screening Abstracted Historical Provider HEALTH MAINTENANCE Final Result * Annual BMP Blood Test (02/06/2024) Pathologist [facility] Annual BMP Blood Test Abstracted Historical Provider MD HEALTH MAINTENANCE Final Result * (ABNORMAL) Lipid panel (12/09/2023) [facility] LDL/HDL Ratio 5(A) 0 - 4 Triglycerides 143 0 - 150 mg/dL Cholesterol 199 0 - 200 mg/dL HDL 41 >=40 mg/dL LDL Cholesterol 130(A) 0 - 100 mg/dL Blood Venous blood specimen / Unknown Historical Provider LAB BLOOD ORDERABLES Rosa l Result * BACILIO SCREENING DIGITAL (10/29/2023 4:40 PM EST) Anatomical Region Laterality Modality Mammography 10/29/2023 3:10 PM EST Narrative 10/29/2023 4:40 PM EST [facility] Diagnostic Imaging Department [address] [place] [address] Patient: ??JOSH SUNG ?/Age/Sex: 1965 - 58 - F Unit#: ??[id number] ? Location/Status: ??SPDIMAM/PRE CLI ? Mnemonic/Ordering Site: ??DIGSC/SPMAM Ordering Physician: ??MICHAEL LAWRENCE MD [facility] Screening Digital - 10/29/23 - 1623 Report Status:Signed EXAM: [facility] Screening Digital EXAM DATE AND TIME: 10/29/2023 4:24 PM HISTORY: ??Screening. Previous left breast biopsies, most recently in 2020, pathology benign. Mother had breast carcinoma at age 40. COMPARISON: ??09/27/22, 10/05/20, 09/07/20, 05/11/19 TECHNIQUE: Bilateral digital breast tomosynthesis was performed in the CC and MLO projections. 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 TISSUE DENSITY: a. [...] Procedure Note Ester Chacko MD - 06/08/2024 [facility] Diagnostic Imaging Department [address] [place] [address] Patient: JOSH SUNG/Age/Sex: 1965 - 58 - F Unit#: [id number] Location/Status: SPDIMAM/PRE CLI Mnemonic/Ordering Site: [facility] Ordering Physician: MICHAEL LAWRENCE MD [facility] Screening Digital - 10/29/23 - 1623 Report Status:Signed EXAM: [facility] Screening Digital EXAM DATE AND TIME: 10/29/2023 4:24 PM HISTORY: Screening. Previous left breast biopsies, most recently [id number], pathology benign. Mother had breast carcinoma at age 40. COMPARISON: 09/27/22, 10/05/20, 09/07/20, 05/11/19 TECHNIQUE: Bilateral digital breast tomosynthesis was performed in the CCand MLO projections. Computer aided detection with [employer] 3D 3.1was employed. TISSUE DENSITY: a. The [...] PROCEDURES Final Result * HIV Screening (08/05/2023) HIV Screening Abstracted Historical Provider HEALTH MAINTENANCE Final Result * Hepatitis C Screening (08/05/2023) Pathologist [facility] Hepatitis C Screening Abstracted Historical Provider HEALTH MAINTENANCE Final Result * Cervical Cancer Screening: HPV (07/13/2021) Pathologist [facility] Cervical Cancer Screening: HPV Negative, abstracted Historical Provider HEALTH MAINTENANCE Final Result * Colonoscopy (03/24/2018) Pathologist [facility] Colonoscopy No interpretation , abstracted Comment:External Completion of test per patient (Patient reports normal results) Anatomical Region Laterality Modality Other Historical Provider HEALTH MAINTENANCE Final Result from Last 3 Months or Most Recently Relevant to Health Maintenance Insurance [employer] MEDICARE Member Subscriber Plan / Payer (Ef fective 2022-Present) Name:Josh Sung Relation to Subscriber:Self Name:Josh Sung Payer ID:[id number] Group ID:[id number] Type:Not on file Address: [place] [address] [address] [phone] Advance Directives Documents on File Type Date Recorded Patient Bran Mixer Expl anation Health Care Decision (hx) 03/05/2024 AD LAM DIRECTIVE Health Care Decision (hx) 03/05/2024 AD LAM DIRECTIVE Health Care Decision (hx) 03/05/2024 AD LAM DIRECTIVE Health Care Decision (hx) 03/05/2024 AD LAM DIRECTIVE Health Care Decision (hx) 02/13/2024 HE ALTH CARE PROXY Care Teams Collet Driller Relationship Specialty Start Date End Date Michael Lawrence MD [address] [place] [address] [address] [place] [phone] PCP - General Internal Medicine 09/24/16
--- OUTSIDE RECORDS SUMMARY | 2025-01-20 13:15 | XMS_ITS | Encounter Summary ---
Author Organization [facility] Address [address] [place] [address] Care Team Providers Care Candle Molder Hand Name Role Phone Trey Mueller MD Primary Care Provider Unavaila ble Mily Lawrence MD Primary Care Provider +[phone]- [phone] Ralf Gastelum MD Unavailable [phone] Gretchen Juan MD Unavailable [phone] Katherine Snow PA-C Unavailable [phone] Per Leahy PA-C Unavailable [phone] Encounter Details Date Type Department Care Team Description 02/05/2019 [facility] Medical Records [address] [place] [address] Abstract, Provider Social History Tobacco Use Types [...] on filedocumented in this encounter Care Teams Candle Molder Hand Relationship Specialty Start Date End Date Trey Mueller MD PCP - General Internal Medicine 01/02/19 03/08/19 Mily Lawrence MD PCP - General Internal Medicine 03/09/19 Ralf Gastelum MD 300 [facility] [address] [place] [address] Specialist Cardiovascular Disease 06/08/22 Gretchen Juan MD 175 [facility] 300 [place] [address] Surgeon Neurosurgery 02/13/23 Katherine Snow PA-C 175 [facility] 300 [place] [address] Specialist Neurosurgery 02/13/23 Per Leahy PA-C 175 [facility] 300 [place] [address] Specialist Neurosurgery 02/13/23 documented as of this encounter
--- OUTSIDE RECORDS SUMMARY | 2025-01-20 13:15 | XMS_ITS | Encounter Summary ---
Author Organization [facility] Address [address] [place] [address] Care Team Providers Care Surgical Garment Fitter Name Role Phone Trey Mueller MD Primary Care Provider Unavaila ble Mily Lawrence MD Primary Care Provider +[phone]- [phone] Ralf Gastelum MD Unavailable [phone] Gretchen Juan MD Unavailable [phone] Katherine Snow PA-C Unavailable [phone] Per Leahy PA-C Unavailable [phone] Encounter Details Date Type Department Care Team Description 02/03/2019 Hospital Medical Records [address] [place] [address] Magdi Daniel MD [address] [place] [address] [place] [address] Social History Tobacco Use Types Packs/Day Years [...] on filedocumented in this encounter Care Teams Surgical Garment Fitter Relationship Specialty Start Date End Date Trey Mueller MD PCP - General Internal Medicine 01/02/19 03/08/19 Mily Lawrence MD PCP - General Internal Medicine 03/09/19 Ralf Gastelum MD 300 [facility] 154 [place] [address] Specialist Cardiovascular Disease 06/08/22 Gretchen Juan MD [address] [address] Surgeon Neurosurgery 02/13/23 Katherine Snow PA-C 175 [facility] 300 [place] [address] Specialist Neurosurgery 02/13/23 Per Leahy PA-C [address] [address] Specialist Neurosurgery 02/13/23 documented as of this encounter
--- OUTSIDE RECORDS SUMMARY | 2025-01-20 13:15 | XMS_ITS | Encounter Summary ---
Author Organization [facility] Address [address] [place] [address] Care Team Providers Care Cork Molder Name Role Phone Mily Lawrence MD Primary Care Provider +[phone] Ralf Gastelum MD Unavailable [phone] Gretchen Juan MD Unavailable [phone] Katherine Snow PA-C Unavailable [phone] Per Leahy PA-C Unavailable [phone] Reason for Visit * Reason Comments E-prescribe Rx Request Encounter Details Date Type Department Care Team Description 04/07/2019 [facility] Internal Medicine [address], [address] [place] [address] Mily Lawrence MD [address] [place] [phone] E-prescribe Rx Request Social History Tobacco [...] N/A Patients current insurance carrier is: Payor: [employer] FFS / Plan: [employer] / Product Type: MEDICAID RISK documented in this encounter Plan of Treatment Not on file documented as of this encounter Visit Diagnoses Not on filedocumented in this encounter Care Teams Cork Molder Relationship Specialty Start Date End Date Mily Lawrence MD PCP - General Internal Medicine 03/09/19 Ralf Gastelum MD [address] [place] [address], [place] [address] Specialist Cardiovascular Disease 06/08/22 Gretchen Juan MD 175 [facility] 300 [place] [address] Surgeon Neurosurgery 02/13/23 Katherine Snow PA-C [address] [address] Specialist Neurosurgery 02/13/23 Per Leahy PA-C 175 [facility] 300 [place] [address] Specialist Neurosurgery 02/13/23 documented as of this encounter
--- OUTSIDE RECORDS SUMMARY | 2025-01-20 13:15 | XMS_ITS | Encounter Summary ---
Author Organization [facility] Address [address] [place] [address] Care Team Providers Care Timber Mill Worker Name Role Phone Mily Lawrence MD Primary Care Provider [phone] Trey Mueller MD Primary Care Provider Unavaila ble Mily Lawrence MD Primary Care Provider [phone] Ralf Gastelum MD Unavailable [phone] Gretchen Juan MD Unavailable [phone] Katherine Snow PA-C Unavailable [phone] Per Leahy PA-C Unavailable [phone] Encounter Details Date Type Department Care Team Description 12/18/2018 Release of Information Medical Records [address] [place] [address] Abstract, Provider Social History Tobacco Use Types [...] on filedocumented in this encounter Care Teams Timber Mill Worker Relationship Specialty Start Date End Date Mily Lawrence MD PCP - General Internal Medicine 03/13/17 01/01/19 Trey Mueller MD PCP - General Internal Medicine 01/02/19 03/08/19 Mily Lawrence MD PCP - General Internal Medicine 03/09/19 Ralf Gastelum MD 300 [facility] 154 [place] [address] Specialist Cardiovascular Disease 06/08/22 Gretchen Juan MD [address] [address] Surgeon Neurosurgery 02/13/23 Katherine Snow PA-C [address] [address] Specialist Neurosurgery 02/13/23 Per Leahy PA-C [address] [address] Specialist Neurosurgery 02/13/23 documented as of this encounter
--- OUTSIDE RECORDS SUMMARY | 2025-01-20 13:15 | XMS_ITS | Encounter Summary ---
Author Organization [facility] Address [address] [place] [address] Care Team Providers Care Freight Separator Name Role Phone Mily Lawrence MD Primary Care Provider +[phone] Ralf Gastelum MD Unavailable [phone] Grtechen Juan MD Unavailable [phone] Katherine Snow PA-C Unavailable [phone] Per Leahy PA-C Unavailable [phone] Reason for Visit * Reason Comments E-prescribe Rx Request Encounter Details Date Type Department Care Team Description 06/27/2020 [facility] - [address], [address] [place] [address] Mily Lawrence MD [address] [place] [phone] E-prescribe Rx Request Social History Tobacco [...] unspecified documented in this encounter Care Teams Freight Separator Relationship Specialty Start Date End Date Mily Lawrence MD PCP - General Internal Medicine 03/09/19 Ralf Gastelum MD 300 [facility] 154 [place] [address] Specialist Cardiovascular Disease 06/08/22 Gretchen Juan MD 175 [facility] 300 [place] [address] Surgeon Neurosurgery 02/13/23 Katherine Snow PA-C 175 [facility] [address] [place] [address] Specialist Neurosurgery 02/13/23 Per Leahy PA-C [address] [id number] Specialist Neurosurgery 02/13/23 documented as of this encounter
--- OUTSIDE RECORDS SUMMARY | 2025-01-20 13:15 | XMS_ITS | Encounter Summary ---
Author Organization [facility] Address [address] [place] [address] Care Team Providers Care Gluten Settling Tender Name Role Phone Mily Lawrence MD Primary Care Provider +[phone]- [phone] Ralf Gastelum MD Unavailable [phone] Gretchen Juan MD Unavailable [phone] Katherine Snow PA-C Unavailable [phone] Per Leahy PA-C Unavailable [phone] Reason for Visit * Reason Comments E-prescribe Rx Request Encounter Details Date Type Department Care Team Description 12/28/2019 [facility] Medicine [address], [address] [place] [address] Alejandro Sibley MD [address] [place] [address] E-prescribe Rx Request Social History Tobacco Use [...] N/A Patients current insurance carrier is: Payor: [employer] FFS / Plan: [employer] / Product Type: MEDICAID RISK documented in this encounter Plan of Treatment Not on file documented as of this encounter Visit Diagnoses Not on filedocumented in this encounter Care Teams Gluten Settling Tender Relationship Specialty Start Date End Date Mily Lawrence MD PCP - General Internal Medicine 03/09/19 Ralf Gastelum MD 300 [facility] [place] [facility] [address] [place] [address] Specialist Cardiovascular Disease 06/08/22 Gretchen Juan MD 175 [facility] 300 [place] [address] Surgeon Neurosurgery 02/13/23 Katherine Snow PA-C 175 [facility] 300 [place] [address] Specialist Neurosurgery 02/13/23 Per Leahy PA-C 175 [facility] 300 [place] [address] Specialist Neurosurgery 02/13/23 documented as of this encounter
--- OUTSIDE RECORDS SUMMARY | 2025-01-20 13:15 | XMS_ITS | Encounter Summary ---
Author Organization [facility] Address [address] [place] [address] Care Team Providers Care Station Mechanic Helper Name Role Phone Trey Mueller MD Primary Care Provider Unavaila ble Mily Lawrence MD Primary Care Provider +[phone]- [phone] Ralf Gastelum MD Unavailable [phone] Gretchen Juan MD Unavailable [phone] Katherine Snow PA-C Unavailable [phone] Per Leahy PA-C Unavailable [phone] Encounter Details Date Type Department Care Team Description 01/26/2019 Computational Theory Scientist Report Medical Records [address] [place] [address] Magdi Daniel MD [address] [place] [address] [place] [address] Social History Tobacco Use Types Packs/Day Years [...] on filedocumented in this encounter Care Teams Station Mechanic Helper Relationship Specialty Start Date End Date Trey Mueller MD PCP - General Internal Medicine 01/02/19 03/08/19 Mily Lawrence MD PCP - General Internal Medicine 03/09/19 Ralf Gastelum MD 300 [facility] 154 [place] [address] Specialist Cardiovascular Disease 06/08/22 Gretchen Juan MD 175 [facility] 300 [place] [address] Surgeon Neurosurgery 02/13/23 Katherine Snow PA-C 175 [facility] 300 [place] [address] Specialist Neurosurgery 02/13/23 Per Leahy PA-C 175 [facility] 300 [place] [address] Specialist Neurosurgery 02/13/23 documented as of this encounter
--- OUTSIDE RECORDS SUMMARY | 2025-01-20 13:16 | XMS_ITS | Encounter Summary ---
Author Organization [facility] Address [address] [place] [address] Care Team Providers Care Summons Server Name Role Phone Mily Lawrence MD Primary Care Provider [phone] Ralf Gastelum MD Unavailable [phone] Gretchen Juan MD Unavailable [phone] Katherine Snow PA-C Unavailable [phone] Per Leahy PA-C Unavailable [phone] Encounter Details Date Type Department Care Team Description 03/26/2023 Contract Processor Report Medical Records [address] [place] [address] Sravanthi Doss Social History Tobacco Use Types [...] on filedocumented in this encounter Care Teams Summons Server Relationship Specialty Start Date End Date Mily Lawrence MD PCP - General Internal Medicine 03/09/19 Ralf Gastelum MD 300 [facility] [address] [place] [address] Specialist Cardiovascular Disease 06/08/22 Gretchen Juan MD 175 [facility] 300 [place] [address] Surgeon Neurosurgery 02/13/23 Katherine Snow PA-C 175 [facility] 300 [place] [address] Specialist Neurosurgery 02/13/23 Per Leahy PA-C 175 [facility] 300 [place] [address] Specialist Neurosurgery 02/13/23 documented as of this encounter
--- OUTSIDE RECORDS SUMMARY | 2025-01-20 13:16 | XMS_ITS | Continuity of Care Document ---
Author Organization [facility] Address [address] [place] [phone] Phone Care Team Providers Care It Technician Name Role Phone Provider, [employer] Unavailable Unavailable Advance Directives Directive Yes / No Effective Date File Name No Information Encounters Encounter Description Practice Location Reason(s) For Visit Diagnoses Date Provider Providers Copied on Encounter [facility], [address] [facility], [place], [place], [id number], [place] tel:[phone] No Information Provider [employer]. . Family History [...]
--- OUTSIDE RECORDS SUMMARY | 2025-01-20 13:16 | XMS_ITS | Encounter Summary ---
Author Organization [facility] Address [address] [place] [address] Care Team Providers Care Assistant Boys Track Coach Name Role Phone Mily Lawrence MD Primary Care Provider [phone] Ralf Gastelum MD Unavailable [phone] Gretchen Juan MD Unavailable [phone] Katherine Snow PA-C Unavailable [phone] Per Leahy PA-C Unavailable [phone] Encounter Details Date Type Department Care Team Description 06/24/2024 Pt. Non Urgent Medical Question Internal Medicine - [place] 175 [facility], [address] [place] [address] Mily Lawrence MD [address] [place] [phone] Social History Tobacco Use Types Packs/Day [...] filedocumented in this encounter Care Teams Assistant Boys Track Coach Relationship Specialty Start Date End Date Mily Lawrence MD PCP - General Internal Medicine 03/09/19 Ralf Gastelum MD 300 [facility] [address] [place] [address] Specialist Cardiovascular Disease 06/08/22 Gretchen Juan MD 175 [facility] 300 [place] [address] Surgeon Neurosurgery 02/13/23 Katherine Snow PA-C 175 [facility] 300 [place] [address] Specialist Neurosurgery 02/13/23 Per Leahy PA-C 175 [facility] 300 [place] [address] Specialist Neurosurgery 02/13/23 documented as of this encounter
--- OUTSIDE RECORDS SUMMARY | 2025-01-20 13:16 | XMS_ITS | Encounter Summary ---
Author Organization [facility] Address [address] [place] [address] Care Team Providers Care Bank Appraiser Name Role Phone Mily Lawrence MD Primary Care Provider [phone] Ralf Gastelum MD Unavailable [phone] Gretchen Juan MD Unavailable [phone] Katherine Snow PA-C Unavailable [phone] Per Leahy PA-C Unavailable [phone] Encounter Details Date Type Department Care Team Description 04/11/2022 Hospital Medical Records [address] [place] [address] Maye Hamilton MD [address] [place] [id number] Social History Tobacco Use Types Packs/Day Years [...] suspected to have Coronavirus/COVID-19? No / Unsure 04/11/2022 6:57 AM EDT documented as of this encounter Plan of Treatment Not on file documented as of this encounter Visit Diagnoses Not on filedocumented in this encounter Care Teams Bank Appraiser Relationship Specialty Start Date End Date Mily Lawrence MD PCP - General Internal Medicine 03/09/19 Ralf Gastelum MD 300 [facility] 154 [place] [address] Specialist Cardiovascular Disease 06/08/22 Gretchen Juan MD [address] [address] Surgeon Neurosurgery 02/13/23 Katherine Snow PA-C [address] [address] Specialist Neurosurgery 02/13/23 Per Leahy PA-C [address] [address] Specialist Neurosurgery 02/13/23 documented as of this encounter
--- OUTSIDE RECORDS SUMMARY | 2025-01-20 13:16 | XMS_ITS | Encounter Summary ---
Author Organization [facility] Address [address] [place] [address] Care Team Providers Care Mold Closer Name Role Phone Mily Lawrence MD Primary Care Provider [phone] Ralf Gastelum MD Unavailable [phone] Gretchen Juan MD Unavailable [phone] Katherine Snow PA-C Unavailable [phone] Per Leahy PA-C Unavailable [phone] Encounter Details Date Type Department Care Team Description 07/21/2024 Hospital Medical Records [address] [place], [place] [address] [place] [address] Social History Tobacco Use Types Packs/Day Years [...] on filedocumented in this encounter Care Teams Mold Closer Relationship Specialty Start Date End Date Mily Lawrence MD PCP - General Internal Medicine 03/09/19 Ralf Gastelum MD 300 [facility] 154 [place] [address] Specialist Cardiovascular Disease 06/08/22 Gretchen Juan MD [address] [address] Surgeon Neurosurgery 02/13/23 Katherine Snow PA-C [address] [address] Specialist Neurosurgery 02/13/23 Per Leahy PA-C [address] [address] Specialist Neurosurgery 02/13/23 documented as of this encounter
--- OUTSIDE RECORDS SUMMARY | 2025-01-20 13:16 | XMS_ITS | Encounter Summary ---
Author Organization [facility] Address [address] [place] [address] Care Team Providers Care Tibco Developer Name Role Phone Mily Lawrence MD Primary Care Provider Ralf Gastelum MD Unavailable [phone] Gretchen Juan MD Unavailable [phone] Katherine Snow PA-C Unavailable [phone] Per Leahy PA-C Unavailable [phone] Reason for Visit * Reason Onset Date Comments preop exam 06/25/2024 Encounter Details Date Type Department Care Team Description 06/25/2024 Telephone Cardio PVC POC [address] [id number] Ralf Gastelum MD 300 [facility] 154 [place], [place] [id number] preop exam Social History Tobacco Use Types [...] testing. It is being faxed over to [phone]. * Telephone Encounter - Lucia Ahn - [...] calling back, she can be reached at [phone]. * Telephone Encounter - Suhail Cox RN [...] on filedocumented in this encounter Care Teams Tibco Developer Relationship Specialty Start Date End Date Mily Lawrence MD PCP - General Internal Medicine 03/09/19 Ralf Gastelum MD 300 [facility] [address] [place] [address] Specialist Cardiovascular Disease 06/08/22 Gretchen Juan MD 175 [facility] 300 [place] [address] Surgeon Neurosurgery 02/13/23 Katherine Snow PA-C [address] [address] Specialist Neurosurgery 02/13/23 Per Leahy PA-C 175 [facility] 300 [place] [address] Specialist Neurosurgery 02/13/23 documented as of this encounter
--- OUTSIDE RECORDS SUMMARY | 2025-01-20 13:16 | XMS_ITS | Encounter Summary ---
Author Organization [facility] Address [address] [place] [address] Care Team Providers Care Weigh Box Tender Name Role Phone Mily Lawrence MD Primary Care Provider Ralf Gastelum MD Unavailable [phone] Gretchen Juan MD Unavailable [phone] Katherine Snow PA-C Unavailable [phone] Per Leahy PA-C Unavailable Encounter Details Date Type Department Care Team Description 07/30/2024 SCAN [facility] Neurosurgery [place] [address] [id number] Per Leahy PA-C [address] [id number] Social History Tobacco Use Types Packs/Day Years [...] on filedocumented in this encounter Care Teams Weigh Box Tender Relationship Specialty Start Date End Date Mily Lawrence MD PCP - General Internal Medicine 03/09/19 Ralf Gastelum MD 300 [facility] 154 [place] [address] Specialist Cardiovascular Disease 06/08/22 Gretchen Juan MD 175 [facility] 300 [place] [address] Surgeon Neurosurgery 02/13/23 Katherine Snow PA-C 175 [facility] 300 [place] [address] Specialist Neurosurgery 02/13/23 Per Leahy PA-C 175 [facility] 300 [place] [address] Specialist Neurosurgery 02/13/23 documented as of this encounter
--- OUTSIDE RECORDS SUMMARY | 2025-01-20 13:16 | XMS_ITS | Encounter Summary ---
Author Organization [facility] Address [address] [place] [address] Care Team Providers Care Taxonomy Teacher Name Role Phone Mily Lawrence MD Primary Care Provider +[phone] Ralf Gastelum MD Unavailable [phone] Gretchen Juan MD Unavailable [phone] Katherine Snow PA-C Unavailable [phone] Per Leahy PA-C Unavailable [phone] Encounter Details Date Type Department Care Team Description 02/06/2023 Feltmaker Report Medical Records [address] [place] [address] Florina Perla MD Social History Tobacco Use [...] on filedocumented in this encounter Care Teams Taxonomy Teacher Relationship Specialty Start Date End Date Mily Lawrence MD PCP - General Internal Medicine 03/09/19 Ralf Gastelum MD 300 [facility] [address] [place] [address] Specialist Cardiovascular Disease 06/08/22 Gretchen Juan MD 175 [facility] 300 [place] [address] Surgeon Neurosurgery 02/13/23 Katherine Snow PA-C 175 [facility] 300 [place] [address] Specialist Neurosurgery 02/13/23 Per Leahy PA-C 175 [facility] 300 [place] [address] Specialist Neurosurgery 02/13/23 documented as of this encounter
--- OUTSIDE RECORDS SUMMARY | 2025-01-20 13:16 | XMS_ITS | Encounter Summary ---
Author Organization [facility] Address [address] [place] [address] Care Team Providers Care Brine Tank Separator Operator Name Role Phone Mily Lawrence MD Primary Care Provider Ralf Gastelum MD Unavailable [phone] Gretchen Juan MD Unavailable [phone] Katherine Snow PA-C Unavailable [phone] Per Leahy PA-C Unavailable [phone] Encounter Details Date Type Department Care Team Description 02/26/2023 Telephone [facility] [address] [address] Brian Ferrari MD [address] [id number] Social History Tobacco Use Types Packs/Day Years [...] Miscellaneous Notes * Telephone Encounter - Marci Rodriguesflory - 02/26/2023 12:49 PM EDT Pt called and asked if a brace for her L knee can be ordered Any questions please contact pt [phone] documented in this encounter Plan of Treatment Not on file documented as of this encounter Visit Diagnoses Not on filedocumented in this encounter Care Teams Brine Tank Separator Operator Relationship Specialty Start Date End Date Mily Lawrence MD PCP - General Internal Medicine 03/09/19 Ralf Gastelum MD 300 [facility] 154 [place] [address] Specialist Cardiovascular Disease 06/08/22 Gretchen Juan MD [address] [address] Surgeon Neurosurgery 02/13/23 Katherine Snow PA-C 175 [facility] 300 [place] [address] Specialist Neurosurgery 02/13/23 Per Leahy PA-C [address] [address] Specialist Neurosurgery 02/13/23 documented as of this encounter
--- OUTSIDE RECORDS SUMMARY | 2025-01-20 13:16 | XMS_ITS | Encounter Summary ---
Author Organization [facility] Address [address] [place] [address] Care Team Providers Care Airline Ticket Agent Name Role Phone Mily Lawrence MD Primary Care Provider [phone] Ralf Gastelum MD Unavailable [phone] Gretchen Juan MD Unavailable [phone] Katherine Snow PA-C Unavailable [phone] Per Leahy PA-C Unavailable [phone] Encounter Details Date Type Department Care Team Description 07/22/2020 Telephone Adult [address] [phone] Mily Lawrence MD [address] [place] [phone] Social History Tobacco Use Types Packs/Day [...] on filedocumented in this encounter Care Teams Airline Ticket Agent Relationship Specialty Start Date End Date Mily Lawrence MD PCP - General Internal Medicine 03/09/19 Ralf Gastelum MD [address] [address] Specialist Cardiovascular Disease 06/08/22 Gretchen Juan MD [address] [address] Surgeon Neurosurgery 02/13/23 Katherine Snow PA-C [address] [address] Specialist Neurosurgery 02/13/23 Per Leahy PA-C [address] [address] Specialist Neurosurgery 02/13/23 documented as of this encounter
--- OUTSIDE RECORDS SUMMARY | 2025-01-20 13:16 | XMS_ITS | Encounter Summary ---
Author Organization [facility] Address [address] [place] [address] Care Team Providers Care Joiner Apprentice Name Role Phone Mily Lawrence MD Primary Care Provider [phone] Ralf Gastelum MD Unavailable [phone] Gretchen Juan MD Unavailable [phone] Katherine Snow PA-C Unavailable [phone] Per Leahy PA-C Unavailable [phone] Encounter Details Date Type Department Care Team Description 06/15/2024 Mental Health Advanced Practice Nurse Report Medical Records [address] [place] [id number] Florina Perla MD Social History Tobacco Use [...] on filedocumented in this encounter Care Teams Joiner Apprentice Relationship Specialty Start Date End Date Mily Lawrence MD PCP - General Internal Medicine 03/09/19 Ralf Gastelum MD [address] [facility] [address] [place] [address] Specialist Cardiovascular Disease 06/08/22 Gretchen Juan MD 175 [facility] 300 [place] [address] Surgeon Neurosurgery 02/13/23 Katherine Snow PA-C 175 [facility] 300 [place] [address] Specialist Neurosurgery 02/13/23 Per Leahy PA-C 175 [facility] 300 [place] [address] Specialist Neurosurgery 02/13/23 documented as of this encounter
--- OUTSIDE RECORDS SUMMARY | 2025-01-20 13:16 | XMS_ITS | Encounter Summary ---
Author Organization [facility] Address [address] [place] [address] Care Team Providers Care Monogram Machine Operator Name Role Phone Mily Lawrence MD Primary Care Provider Ralf Gastelum MD Unavailable [phone] Gretchen Juan MD Unavailable [phone] Katherine Snow PA-C Unavailable [phone] Per Leahy PA-C Unavailable [phone] Encounter Details Date Type Department Care Team Description 02/15/2023 Abstract [facility] Neurosurgery [place] [address] [address] Gretchen Juan MD [address] [address] Social History Tobacco Use Types [...] on filedocumented in this encounter Care Teams Monogram Machine Operator Relationship Specialty Start Date End Date Mily Lawrence MD PCP - General Internal Medicine 03/09/19 Ralf Gastelum MD 300 [facility] [address] [place] [address] Specialist Cardiovascular Disease 06/08/22 Gretchen Juan MD 175 [facility] 300 [place] [address] Surgeon Neurosurgery 02/13/23 Katherine Snow PA-C 175 [facility] 300 [place] [address] Specialist Neurosurgery 02/13/23 Per Leahy PA-C 175 [facility] 300 [place] [address] Specialist Neurosurgery 02/13/23 documented as of this encounter
--- OUTSIDE RECORDS SUMMARY | 2025-01-20 13:16 | XMS_ITS | Clinical Summary ---
Author Organization [facility] Address [address] [place] [address] Care Team Providers Care Boiler Installer Name Role Phone Mily Lawrence MD Primary Care Provider Ralf Gastelum MD Unavailable [phone] Gretchen Juan MD Unavailable [phone] Katherine Snow PA-C Unavailable [phone] Per Leahy PA-C Unavailable [phone] Allergies Active Allergy Reactions Severity Noted Date [...] dermatomal. I reviewed her MRI with Dr. 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 There is [...] spinal instrumentation performed by Dr. Hayward at [facility] in [place]. This the surgery, she has been a patient in rehab at [address] [place] [address]. While there, she is participating in physical [...] 02/15/2015 Epigastric pain Nausea and vomiting Diarrhea Immunizations Name Administration Dates Next Due COVID-19 [...] 2024 08/20/2022, 02/27/2022, 09/22/2021, Additional history exists CERVICAL CANCER SCREENING 07/13/20242020, 07/03/2018, 03/09/2015 (External Completion) BMI CHECK/ADVISE 10/21/2024 08/13/2024, , 04/16/2024, Additional history exists DEPRESSION SCREENING/FOLLOWUP 10/21/2024, 05/08/2024, 12/09/2023, Additional history exists SOCIAL NEEDS SCREENING 10/21/2024 MAMMOGRAM 10/29/2024 10/29/2023, 05/2022, 11/02/2020, Additional history exists INFLUENZA (Season Ended) 2025 022, 07/21/2021, 07/22/2020, Additional history exists BASELINE HEALTH EXAM 40-64 11/12/202511/12, 09/28/2022, 07/06/2022, Additional history exists COLON CANCER SCREENING 03/24/2028 8 (External Completion of test per patient (Patient reports normal results)) CHOLESTEROL SCREENING 12/09/2028 12/09/2023 , 05/01/2022, 05/12/2021, Additional history exists PNEUMOCOCCAL VACCINE FOR HIG H RISK PATIENTS (#1) 2032 Advance Directives For more information, please contact: [phone] Documents on File Type Date Recorded Patient Retirement Plan Counselor Expl savi Health Care Proxy 02/11/2024 3:25 PM [facility] CARE PROXY Care Teams Boiler Installer Relationship Specialty Start Date End Date Mily Lawrence MD PCP - General Internal Medicine 03/09/19 Ralf Gastelum MD 300 [facility] [address] [place] [address] Specialist Cardiovascular Disease 06/08/22 Gretchen Juan MD 175 [facility] 300 [place] [address] Surgeon Neurosurgery 02/13/23 Katherine Snow PA-C [address] [address] Specialist Neurosurgery 02/13/23 Per Leahy PA-C 175 [facility] 300 [place] [address] Specialist Neurosurgery 02/13/23
--- OUTSIDE RECORDS SUMMARY | 2025-01-20 13:16 | XMS_ITS | Encounter Summary ---
Author Organization [facility] Address [address] [place] [address] Care Team Providers Care Emergency Management Consultant Name Role Phone Mily Lawrence MD Primary Care Provider [phone] Ralf Gastelum MD Unavailable [phone] Gretchen Juan MD Unavailable [phone] Katherine Snow PA-C Unavailable [phone] Per Leahy PA-C Unavailable [phone] Encounter Details Date Type Department Care Team Description 02/15/2022 Release of Information Medical Records [address] [place] [address] Abstract, Provider Social History Tobacco Use Types [...] filedocumented in this encounter Care Teams Emergency Management Consultant Relationship Specialty Start Date End Date Mily Lawrence MD PCP - General Internal Medicine 03/09/19 Ralf Gastelum MD 300 [facility] [address] [place] [address] Specialist Cardiovascular Disease 06/08/22 Gretchen Juan MD 175 [facility] 300 [place] [address] Surgeon Neurosurgery 02/13/23 Katherine Snow PA-C 175 [facility] 300 [place] [address] Specialist Neurosurgery 02/13/23 Per Leahy PA-C 175 [facility] 300 [place] [address] Specialist Neurosurgery 02/13/23 documented as of this encounter
--- OUTSIDE RECORDS SUMMARY | 2025-01-20 13:16 | XMS_ITS | Encounter Summary ---
Author Organization [facility] Address [address] [place] [address] Care Team Providers Care Accountant Cost Name Role Phone Mily Lawrence MD Primary Care Provider [phone] Ralf Gastelum MD Unavailable [phone] Gretchen Juan MD Unavailable [phone] Katherine Snow PA-C Unavailable [phone] Per Leahy PA-C Unavailable [phone] Encounter Details Date Type Department Care Team Description 07/10/2024 Telephone [facility] Medical [facility] [address] [address] Brian Ferrari MD [address] [id number] Social History Tobacco Use Types Packs/Day Years [...] at Date Recorded Female 12/24/2022 3:[address] [employer] [employer] Job Start Date Occupation Industry Not on file Not on file Not on file documented as of this encounter Miscellaneous Notes * Telephone Encounter - Sussy Mcgill NP - 07/13/2024 7:19 AM EDT Rx for predental antibiotics sent to [facility] with 2 refills for future appointments. * Telephone Encounter - Marci Garrido - 07/10/2024 3:34 PM EDT Pt needs predental antibiotics for an upcoming appt [facility] documented in this encounter Plan of Treatment Not on file documented as of this encounter Visit Diagnoses Not on filedocumented in this encounter Care Teams Accountant Cost Relationship Specialty Start Date End Date Mily Lawrence MD PCP - General Internal Medicine 03/09/19 Ralf Gastelum MD 300 [facility] [address] [place] [address] Specialist Cardiovascular Disease 06/08/22 Gretchen Juan MD 175 [facility] 300 [place] [address] Surgeon Neurosurgery 02/13/23 Katherine Snow PA-C [address] [address] Specialist Neurosurgery 02/13/23 Per Leahy PA-C [address] [address] Specialist Neurosurgery 02/13/23 documented as of this encounter
--- OUTSIDE RECORDS SUMMARY | 2025-01-20 13:16 | XMS_ITS | Encounter Summary ---
Author Organization [facility] Address [address] [place] [address] Care Team Providers Care Track Subway Repair Supervisor Name Role Phone Mily Lawrence MD Primary Care Provider [phone] Rafl Gastelum MD Unavailable [phone] Gretchen Juan MD Unavailable [phone] Katherine Snow PA-C Unavailable [phone] Per Leahy PA-C Unavailable [phone] Encounter Details Date Type Department Care Team Description 04/14/2024 Hospital Medical Records [address] [place] [id number] [place] [address] Social History Tobacco Use Types Packs/Day Years [...] on filedocumented in this encounter Care Teams Track Subway Repair Supervisor Relationship Specialty Start Date End Date Mily Lawrence MD PCP - General Internal Medicine 03/09/19 Ralf Gastelum MD 300 [facility] [address] [place] [address] Specialist Cardiovascular Disease 06/08/22 Gretchen Juan MD 175 [facility] 300 [place] [address] Surgeon Neurosurgery 02/13/23 Katherine Snow PA-C 175 [facility] 300 [place] [address] Specialist Neurosurgery 02/13/23 Per Leahy PA-C 175 [facility] 300 [place] [address] Specialist Neurosurgery 02/13/23 documented as of this encounter
--- OUTSIDE RECORDS SUMMARY | 2025-01-20 13:16 | XMS_ITS | Encounter Summary ---
Author Organization [facility] Address [address] [place] [address] Care Team Providers Care Sr Vice President Name Role Phone Mily Lawrence MD Primary Care Provider [phone] Ralf Gastelum MD Unavailable [phone] Gretchen Juan MD Unavailable [phone] Katherine Snow PA-C Unavailable [phone] Per Leahy PA-C Unavailable [phone] Reason for Visit * Reason Onset Date Comments Mychart Rx Refill 05/12/2024 Encounter Details Date Type Department Care Team Description 05/12/2024 Refill Internal Medicine - [address], [address] [place] [address] Mily Lawrence MD [address] [place] [phone] Mychart Rx Refill Social History Tobacco Use [...] PM EDTFrom: Ange Montesinos [facility]: [facility] Sent: 05/12/2024 2:15 PM EDT Subject: Medication Renewal Request Refills have been requested for the following medications: Other - NYSTATIN OINTMENT HALF-WAY 100,000 UNITS Per Gram for under breasts and belly/INTERTRIGO Preferred pharmacy: [id number] documented in this encounter Plan of Treatment Not on file documented as of this encounter Visit Diagnoses Not on filedocumented in this encounter Care Teams Sr Vice President Relationship Specialty Start Date End Date Mily Lawrence MD PCP - General Internal Medicine 03/09/19 Ralf Gastelum MD 300 [facility] [address] [place] [address] Specialist Cardiovascular Disease 06/08/22 Gretchen Juan MD 175 [facility] 300 [place] [address] Surgeon Neurosurgery 02/13/23 Katherine Snow PA-C 175 [facility] 300 [place] [address] Specialist Neurosurgery 02/13/23 Per Leahy PA-C 175 [facility] 300 [place] [address] Specialist Neurosurgery 02/13/23 documented as of this encounter
--- OUTSIDE RECORDS SUMMARY | 2025-01-20 13:16 | XMS_ITS | Encounter Summary ---
Author Organization [facility] Address [address] [place] [address] Care Team Providers Care Shuttle Bus Driver Name Role Phone Mily Lawrence MD Primary Care Provider [phone] Ralf Gastelum MD Unavailable [phone] Gretchen Juan MD Unavailable [phone] Katherine Snow PA-C Unavailable [phone] Per Leahy PA-C Unavailable [phone] Reason for Visit * Reason Onset Date Comments Clinical Quality Assurance Specialist Feedback 01/10/2022 Dr. Perla Encounter Details Date Type Department Care Team Description 01/10/2022 Telephone Internal Medicine - [address], [address] [place], [place] [phone] Mily Lawrence MD [address] [place] [phone] Clinical Quality Assurance Specialist Feedback (Dr. Perla) Social History Tobacco Use [...] that Dr. Perla is also working on [address] [place] [address] and would like the referral to be sent there instead. As it will be closer to patient location. documented in this encounter Plan of Treatment Not on file documented as of this encounter Visit Diagnoses Not on filedocumented in this encounter Care Teams Shuttle Bus Driver Relationship Specialty Start Date End Date Mily Lawrence MD PCP - General Internal Medicine 03/09/19 Ralf Gastelum MD 300 [facility] [address] [place] [address] Specialist Cardiovascular Disease 06/08/22 Gretchen Juan MD 175 [facility] 300 [place] [address] Surgeon Neurosurgery 02/13/23 Katherine Snow PA-C 175 [facility] 300 [place] [address] Specialist Neurosurgery 02/13/23 Per Leahy PA-C 175 [facility] 300 [place] [address] Specialist Neurosurgery 02/13/23 documented as of this encounter
--- OUTSIDE RECORDS SUMMARY | 2025-01-20 13:16 | XMS_ITS | Encounter Summary ---
Author Organization [facility] Address [address] [place] [address] Care Team Providers Care Team Assembly Line Machine Operator Name Role Phone Mily Lawrence MD Primary Care Provider [phone] Ralf Gastelum MD Unavailable [phone] Gretchen Juan MD Unavailable [phone] Katherine Snow PA-C Unavailable [phone] Per Leahy PA-C Unavailable [phone] Reason for Visit * Reason Onset Date Comments Call From Pharmacy 08/18/2024 Encounter Details Date Type Department Care Team Description 08/18/2024 Telephone Internal Medicine - [address], [address] [place], [place] [phone] Mily Lawrence MD [address] [place] [phone] Call From Pharmacy Social History Tobacco [...] - 08/18/2024 12:38 PM EDT Lidia from [facility] pharmacy called to get clarification on atorvastatin and lisinopril to see if the patient is still taking these medication. Please advise Cb# [phone] documented in this encounter Plan of Treatment Not on file documented as of this encounter Visit Diagnoses Not on filedocumented in this encounter Care Teams Team Assembly Line Machine Operator Relationship Specialty Start Date End Date Mily Lawrence MD PCP - General Internal Medicine 03/09/19 Ralf Gastelum MD 300 [facility] [address] [place] [address] Specialist Cardiovascular Disease 06/08/22 Gretchen Juan MD 175 [facility] 300 [place] [address] Surgeon Neurosurgery 02/13/23 Katherine Snow PA-C 175 [facility] 300 [place] [address] Specialist Neurosurgery 02/13/23 Per Leahy PA-C 175 [facility] 300 [place] [address] Specialist Neurosurgery 02/13/23 documented as of this encounter
--- OUTSIDE RECORDS SUMMARY | 2025-01-20 13:16 | XMS_ITS | Encounter Summary ---
Author Organization [facility] Address [address] [place] [address] Care Team Providers Care Park Worker Supervisor Name Role Phone Mily Lawrence MD Primary Care Provider [phone] Ralf Gastelum MD Unavailable [phone] Gretchen Juan MD Unavailable [phone] Katherine Snow PA-C Unavailable [phone] Per Leahy PA-C Unavailable [phone] Reason for Visit * Reason Onset Date Comments refill request 11/10/2021 Encounter Details Date Type Department Care Team Description 11/10/2021 Refill Internal Medicine - [address], [address] [place] [address] Mily Lawrence MD [address] [place] [phone] refill request Social History Tobacco Use [...] - 11/14/2021 11:21 AM EST Patient sees PLC CONTROLS ENGINEER / will re route to appropriate provider * Telephone Encounter - Sapna Concepcion - 11/10/2021 3:12 PM EST Patient is requesting Rx for Vitamin B 1 and B 6 and black cohart for menopause. LOGAN 10/17/2021 NOV 11/21/2021 documented in this encounter Plan of Treatment Not on file documented as of this encounter Visit Diagnoses Not on filedocumented in this encounter Care Teams Park Worker Supervisor Relationship Specialty Start Date End Date Mily Lawrence MD PCP - General Internal Medicine 03/09/19 Ralf Gastelum MD 300 [facility] [address] [place] [address] Specialist Cardiovascular Disease 06/08/22 Gretchen Juan MD 175 [facility] 300 [place] [address] Surgeon Neurosurgery 02/13/23 Katherine Snow PA-C 175 [facility] 300 [place] [address] Specialist Neurosurgery 02/13/23 Per Leahy PA-C 175 [facility] 300 [place] [address] Specialist Neurosurgery 02/13/23 documented as of this encounter
--- OUTSIDE RECORDS SUMMARY | 2025-01-20 13:16 | XMS_ITS | Encounter Summary ---
Author Organization [facility] Address [address] [place] [address] Care Team Providers Care Manufacturing Recruiter Name Role Phone Mily Lawrence MD Primary Care Provider [phone] Ralf Gastelum MD Unavailable [phone] Gretchen Juan MD Unavailable [phone] Katherine Snow PA-C Unavailable [phone] Per Leahy PA-C Unavailable [phone] Reason for Visit * Reason Onset Date Comments Imaging Review 12/11/2023 R shoulder MRI Encounter Details Date Type Department Care Team Description 12/11/2023 Telephone [facility] [address] [place] [phone] Salma Elizalde APRN Imaging Review (R [...] filedocumented in this encounter Care Teams Manufacturing Recruiter Relationship Specialty Start Date End Date Mily Lawrence MD PCP - General Internal Medicine 03/09/19 Ralf Gastelum MD 300 [facility] [address] [place] [address] Specialist Cardiovascular Disease 06/08/22 Gretchen Juan MD 175 [facility] 300 [place] [address] Surgeon Neurosurgery 02/13/23 Katherine Snow PA-C 175 [facility] 300 [place] [address] Specialist Neurosurgery 02/13/23 Per Leahy PA-C 175 [facility] 300 [place] [address] Specialist Neurosurgery 02/13/23 documented as of this encounter
--- OUTSIDE RECORDS SUMMARY | 2025-01-20 13:16 | XMS_ITS | Encounter Summary ---
Author Organization [facility] Address [address] [place] [address] Care Team Providers Care Hvac Specialist Name Role Phone Mily Lawrence MD Primary Care Provider +[phone] Ralf Gastelum MD Unavailable [phone] Gretchen Juan MD Unavailable [phone] Katherine Snow PA-C Unavailable [phone] Per Leahy PA-C Unavailable [phone] Encounter Details Date Type Department Care Team Description 10/23/2023 Scrap Charger Report Medical Records [address] [place] [address] Florina Perla MD Social History Tobacco Use [...] on filedocumented in this encounter Care Teams Hvac Specialist Relationship Specialty Start Date End Date Mily Lawrence MD PCP - General Internal Medicine 03/09/19 Ralf Gastelum MD 300 [facility] [address] [place] [address] Specialist Cardiovascular Disease 06/08/22 Gretchen Juan MD 175 [facility] 300 [place] [address] Surgeon Neurosurgery 02/13/23 Katherine Snow PA-C 175 [facility] 300 [place] [address] Specialist Neurosurgery 02/13/23 Per Leahy PA-C 175 [facility] 300 [place] [address] Specialist Neurosurgery 02/13/23 documented as of this encounter
--- OUTSIDE RECORDS SUMMARY | 2025-01-20 13:16 | XMS_ITS | Encounter Summary ---
Author Organization [facility] Address [address] [place] [address] Care Team Providers Care Car Ferrier Name Role Phone Mily Lawrence MD Primary Care Provider +[phone] Ralf Gastelum MD Unavailable [phone] Gretchen Juan MD Unavailable [phone] Katherine Snow PA-C Unavailable [phone] Per Leahy PA-C Unavailable [phone] Encounter Details Date Type Department Care Team Description 04/05/2023 Tube Dispatcher Report Medical Records [address] [place] [address] Evelio Smith Social History Tobacco Use Types [...] filedocumented in this encounter Care Teams Car Ferrier Relationship Specialty Start Date End Date Mily Lawrence MD PCP - General Internal Medicine 03/09/19 Ralf Gastelum MD 300 [facility] [address] [place] [address] Specialist Cardiovascular Disease 06/08/22 Gretchen Juan MD 175 [facility] 300 [place] [address] Surgeon Neurosurgery 02/13/23 Katherine Snow PA-C 175 [facility] 300 [place] [address] Specialist Neurosurgery 02/13/23 Per Leahy PA-C 175 [facility] 300 [place] [address] Specialist Neurosurgery 02/13/23 documented as of this encounter
--- OUTSIDE RECORDS SUMMARY | 2025-01-20 13:16 | XMS_ITS | Encounter Summary ---
Author Organization [facility] Address [address] [place] [address] Care Team Providers Care Tar Kettle Runner Name Role Phone Mily Lawrence MD Primary Care Provider +[phone] Ralf Gastelum MD Unavailable [phone] Gretchen Juan MD Unavailable [phone] Katherine Snow PA-C Unavailable [phone] Per Leahy PA-C Unavailable [phone] Encounter Details Date Type Department Care Team Description 07/16/2023 Presentation Team Member Report Medical Records [address] [place] [address] Florina Perla MD Social History Tobacco Use [...] on filedocumented in this encounter Care Teams Tar Kettle Runner Relationship Specialty Start Date End Date Mily Lawrence MD PCP - General Internal Medicine 03/09/19 Ralf Gastelum MD 300 [facility] [address] [place] [address] Specialist Cardiovascular Disease 06/08/22 Gretchen Juan MD 175 [facility] 300 [place] [address] Surgeon Neurosurgery 02/13/23 Katherine Snow PA-C 175 [facility] 300 [place] [address] Specialist Neurosurgery 02/13/23 Per Leahy PA-C 175 [facility] 300 [place] [address] Specialist Neurosurgery 02/13/23 documented as of this encounter
--- OUTSIDE RECORDS SUMMARY | 2025-01-20 13:16 | XMS_ITS | Encounter Summary ---
Author Organization [facility] Address [address] [place] [address] Care Team Providers Care Soil Tester Name Role Phone Mily Lawrence MD Primary Care Provider Ralf Gastelum MD Unavailable [phone] Gretchen Juan MD Unavailable [phone] Katherine Snow PA-C Unavailable [phone] Per Leahy PA-C Unavailable [phone] Reason for Visit * Reason Comments E-prescribe Rx Request Encounter Details Date Type Department Care Team Description 08/29/2024 Refill [facility] [address] [address] Brian Ferrari MD [address] [place] [address] E-prescribe Rx Request Social History Tobacco Use [...] Sciatica documented in this encounter Care Teams Soil Tester Relationship Specialty Start Date End Date Mily Lawrence MD PCP - General Internal Medicine 03/09/19 Ralf Gastelum MD 300 [facility] 154 [place] [address] Specialist Cardiovascular Disease 06/08/22 Gretchen Juan MD [address] [address] Surgeon Neurosurgery 02/13/23 Katherine Snow PA-C [address] [address] Specialist Neurosurgery 02/13/23 Per Leahy PA-C [address] [address] Specialist Neurosurgery 02/13/23 documented as of this encounter
--- OUTSIDE RECORDS SUMMARY | 2025-01-20 13:16 | XMS_ITS | Encounter Summary ---
Author Organization [facility] Address [address] [place] [address] Care Team Providers Care Local Owner Operator Truck Driver Name Role Phone Mily Lawrence MD Primary Care Provider [phone] Trey Mueller MD Primary Care Provider Unavaila ble Mily Lawrence MD Primary Care Provider +[phone] Mily Lawrence MD Primary Care Provider [phone] Ralf Gastelum MD Unavailable [phone] Gretchen Juan MD Unavailable [phone] Katherine Snow PA-C Unavailable [phone] Per Leahy PA-C Unavailable [phone] Encounter Details Date Type Department Care Team Description 10/19/2016 SCAN Medical Records [address] [place] [id number] Abstract, Provider Social History Tobacco Use Types [...] on filedocumented in this encounter Care Teams Local Owner Operator Truck Driver Relationship Specialty Start Date End Date Mily Lawrence MD PCP - General Internal Medicine 03/13/17 01/01/19 Trey Mueller MD PCP - General Internal Medicine 01/02/19 03/08/19 Mily Lawrence MD PCP - General Internal Medicine 03/09/19 Mily Lawrence MD PCP - General 09/24/16 03/12/17 Ralf Gastelum MD 300 [facility] [address] [place] [address] Specialist Cardiovascular Disease 06/08/22 Gretchen Juan MD [address] [address] Surgeon Neurosurgery 02/13/23 Katherine Snow PA-C 175 [facility] 300 [place] [address] Specialist Neurosurgery 02/13/23 Per Leahy PA-C 175 [facility] 300 [place] [address] Specialist Neurosurgery 02/13/23 documented as of this encounter
--- OUTSIDE RECORDS SUMMARY | 2025-01-20 13:16 | XMS_ITS | Encounter Summary ---
Author Organization [facility] Address [address] [place] [address] Care Team Providers Care Wellness Consultant Name Role Phone Mily Lawrence MD Primary Care Provider Ralf Gastelum MD Unavailable [phone] Gretchen Juan MD Unavailable [phone] Katherine Snow PA-C Unavailable [phone] Per Leahy PA-C Unavailable [phone] Reason for Visit * Reason Comments E-prescribe Rx Request Encounter Details Date Type Department Care Team Description 07/02/2024 Refill [facility] [address] [address] Brian Ferrari MD [address] [place] [address] E-prescribe Rx Request Social History Tobacco Use [...] Miscellaneous Notes * Telephone Encounter - Nora Roderick - 07/02/2024 2:12 PM EDT I called [...] replacement documented in this encounter Care Teams Wellness Consultant Relationship Specialty Start Date End Date Mily Lawrence MD PCP - General Internal Medicine 03/09/19 Ralf Gastelum MD 300 [facility] [address] [place] [address] Specialist Cardiovascular Disease 06/08/22 Gretchen Juan MD 175 [facility] 300 [place] [address] Surgeon Neurosurgery 02/13/23 Katherine Snow PA-C 175 [facility] 300 [place] [address] Specialist Neurosurgery 02/13/23 Per Leahy PA-C 175 [facility] [address] [place] [address] Specialist Neurosurgery 02/13/23 documented as of this encounter
--- OUTSIDE RECORDS SUMMARY | 2025-01-20 13:16 | XMS_ITS | Encounter Summary ---
Author Organization [facility] Address [address] [place] [address] Care Team Providers Care Electrophysiology Technician Name Role Phone Mily Lawrence MD Primary Care Provider [phone]- [phone] Ralf Gastelum MD Unavailable [phone] Gretchen Juan MD Unavailable [phone] Katherine Snow PA-C Unavailable [phone] Per Leahy PA-C Unavailable [phone] Reason for Visit * Reason Onset Date Comments [facility] Call 08/05/2024 Encounter Details Date Type Department Care Team Description 08/05/2024 Telephone Internal Medicine - [address], [address] [place], [place] [id number] Mily Lawrence MD [address] [place] [address] [facility] Call Social History Tobacco Use Types Packs/Day Years [...] encounter Miscellaneous Notes * Telephone Encounter - Marva Paige RN - 08/06/2024 8:47 AM EDT Call to [facility] # [phone], got same response as below Found a different # for aysha online, Call to # [phone], they have a mary who is a nurse, was transferred to her line, but she is not the one who wanted verbal orders Not sure how to reach mary, if she calls back needs to leave a number that we are able to use * Telephone Encounter - Maria Isabel Christianson - 08/05/2024 1:41 PM EDT Call to Mary at [facility] # [phone], answered by automated service, press 0 for the television cabinet finisher and the call hangs up, press 2 for the staff directory and states not valid option * Telephone Encounter - Daniel Sevilla - 08/05/2024 1:17 PM EDT [facility] CALL Which [facility] office is calling? Aysha Full name of caller: Mary The caller is A nurse Is the caller at the patients home?: NO Reason for call: Mary was calling looking for verbal orders for home care services to start on 08/06/24 Does caller need an urgent call back? YES Was CONTACT Telephone # obtained above?: YES Fax #: N/A documented in this encounter Plan of Treatment Not on file documented as of this encounter Visit Diagnoses Not on filedocumented in this encounter Care Teams Electrophysiology Technician Relationship Specialty Start Date End Date Mily Lawrence MD PCP - General Internal Medicine 03/09/19 Ralf Gastelum MD 300 [facility] [address] [place] [address] Specialist Cardiovascular Disease 06/08/22 Gretchen Juan MD 175 [facility] 300 [place] [address] Surgeon Neurosurgery 02/13/23 Katherine Snow PA-C 175 [facility] 300 [place] [address] Specialist Neurosurgery 02/13/23 Per Leahy PA-C 175 [facility] 300 [place] [address] Specialist Neurosurgery 02/13/23 documented as of this encounter
--- OUTSIDE RECORDS SUMMARY | 2025-01-20 13:16 | XMS_ITS | Encounter Summary ---
Author Organization [facility] Address [address] [place] [address] Care Team Providers Care Lithoduplicator Operator Name Role Phone Mily Lawrence MD Primary Care Provider Ralf Gastelum MD Unavailable [phone] Gretchen Juan MD Unavailable [phone] Katherine Snow PA-C Unavailable [phone] Per Leahy PA-C Unavailable [phone] Reason for Visit * Reason Comments E-prescribe Rx Request Encounter Details Date Type Department Care Team Description 08/20/2024 Refill [facility] [address] [address] Brian Ferrari MD [address] [place] [address] E-prescribe Rx Request Social History Tobacco Use [...] Sciatica documented in this encounter Care Teams Lithoduplicator Operator Relationship Specialty Start Date End Date Mily Lawrence MD PCP - General Internal Medicine 03/09/19 Ralf Gastelum MD 300 [facility] 154 [place] [address] Specialist Cardiovascular Disease 06/08/22 Gretchen Juan MD [address] [address] Surgeon Neurosurgery 02/13/23 Katherine Snow PA-C [address] [address] Specialist Neurosurgery 02/13/23 Per Leahy PA-C [address] [address] Specialist Neurosurgery 02/13/23 documented as of this encounter
--- OUTSIDE RECORDS SUMMARY | 2025-01-20 13:17 | XMS_ITS | Encounter Summary ---
Author Organization [facility] Address [address] [place] [address] Care Team Providers Care Mushroom Grower Name Role Phone Mily Lawrence MD Primary Care Provider [phone] Ralf Gastelum MD Unavailable [phone] Gretchen Juan MD Unavailable [phone] Katherine Snow PA-C Unavailable [phone] Per Leahy PA-C Unavailable [phone] Reason for Visit * Reason Comments E-prescribe Rx Request Encounter Details Date Type Department Care Team Description 05/11/2022 Refill Internal Medicine [address], [address] [place] [address] Mily Lawrence MD [address] [place] [phone] E-prescribe Rx Request Social History Tobacco [...] on filedocumented in this encounter Care Teams Mushroom Grower Relationship Specialty Start Date End Date Mily Lawrence MD PCP - General Internal Medicine 03/09/19 Ralf Gastelum MD 300 [facility] [address] [place] [address] Specialist Cardiovascular Disease 06/08/22 Gretchen Juan MD [address] [address] Surgeon Neurosurgery 02/13/23 Katherine Snow PA-C 175 [facility] 300 [place] [address] Specialist Neurosurgery 02/13/23 Per Leahy PA-C 175 [facility] 300 [place] [address] Specialist Neurosurgery 02/13/23 documented as of this encounter
--- OUTSIDE RECORDS SUMMARY | 2025-01-20 13:17 | XMS_ITS | Encounter Summary ---
Author Organization [facility] Address [address] [place] [address] Care Team Providers Care Custom Seamstress Name Role Phone Mily Lawrence MD Primary Care Provider [phone] Ralf Gastelum MD Unavailable [phone] Gretchen Juan MD Unavailable [phone] Katherine Snow PA-C Unavailable [phone] Per Leahy PA-C Unavailable [phone] Reason for Visit * Reason Onset Date Comments refill request 04/26/2022 Encounter Details Date Type Department Care Team Description 04/26/2022 Refill Internal Medicine - [address], [address] [place] [address] Mily Lawrence MD [address] [place] [phone] refill request Social History Tobacco Use [...] NO Patients current insurance carrier is: Payor: [employer] MCR / [facility] / Product Type: HMO [id number] documented in this encounter Plan of Treatment Not on file documented as of this encounter Visit Diagnoses Not on filedocumented in this encounter Care Teams Custom Seamstress Relationship Specialty Start Date End Date Mily Lawrence MD PCP - General Internal Medicine 03/09/19 Ralf Gastelum MD 300 [facility] 154 [place] [address] Specialist Cardiovascular Disease 06/08/22 Gretchen Juan MD [address] [address] Surgeon Neurosurgery 02/13/23 Katherine Snow PA-C [address] [address] Specialist Neurosurgery 02/13/23 Per Leahy PA-C [address] [address] Specialist Neurosurgery 02/13/23 documented as of this encounter
--- OUTSIDE RECORDS SUMMARY | 2025-01-20 13:17 | XMS_ITS | Encounter Summary ---
Author Organization [facility] Address [address] [place] [address] Care Team Providers Care Destination Imagination Coordinator Name Role Phone Mily Lawrence MD Primary Care Provider [phone]- [phone] Ralf Gastelum MD Unavailable [phone] Gretchen Juan MD Unavailable [phone] Katherine Snow PA-C Unavailable [phone] Per Leahy PA-C Unavailable [phone] Reason for Visit * Reason Onset Date Comments injection 01/06/2024 R US GH injectio n Encounter Details Date Type Department Care Team Description 01/06/2024 Telephone [facility] [address] [place] [phone] Salma Elizalde APRN injection ( R [...] 01/07/2024 10:03 AM EDT Called pt at [phone], no answer. Unable to leave , mailbox full. If pt calls back, it is okay to schedule her for next available US guided inj with Dr Kenney. documented in this encounter Plan of Treatment Not on file documented as of this encounter Visit Diagnoses Not on filedocumented in this encounter Care Teams Destination Imagination Coordinator Relationship Specialty Start Date End Date Mily Lawrence MD PCP - General Internal Medicine 03/09/19 Ralf Gastelum MD 300 [facility] [address] [place] [address] Specialist Cardiovascular Disease 06/08/22 Gretchen Juan MD [address] [address] Surgeon Neurosurgery 02/13/23 Katherine Snow PA-C 175 [facility] 300 [place] [address] Specialist Neurosurgery 02/13/23 Per Leahy PA-C 175 [facility] 300 [place] [address] Specialist Neurosurgery 02/13/23 documented as of this encounter
--- OUTSIDE RECORDS SUMMARY | 2025-01-20 13:17 | XMS_ITS | Encounter Summary ---
Author Organization [facility] Address [address] [place] [address] Care Team Providers Care Bulldozer Engineer Name Role Phone Miyl Lawrence MD Primary Care Provider [phone] Ralf Gastelum MD Unavailable [phone] Gretchen Juan MD Unavailable [phone] Katherine Snow PA-C Unavailable [phone] Per Leahy PA-C Unavailable [phone] Encounter Details Date Type Department Care Team Description 11/22/2020 Orders Only Medical Records [address] [place] [address] Mily Lawrence MD [address] [place] [phone] Social History Tobacco Use Types Packs/Day [...] on filedocumented in this encounter Care Teams Bulldozer Engineer Relationship Specialty Start Date End Date Mily Lawrence MD PCP - General Internal Medicine 03/09/19 Ralf Gastelum MD 300 [facility] [address] [place] [address] Specialist Cardiovascular Disease 06/08/22 Gretchen Juan MD [address] [address] Surgeon Neurosurgery 02/13/23 Katherine Snow PA-C 175 [facility] 300 [place] [address] Specialist Neurosurgery 02/13/23 Per Leahy PA-C [address] [address] Specialist Neurosurgery 02/13/23 documented as of this encounter
--- OUTSIDE RECORDS SUMMARY | 2025-01-20 13:17 | XMS_ITS | Encounter Summary ---
Author Organization [facility] Address [address] [place] [address] Care Team Providers Care Renal Medicine Physician Name Role Phone Mily Lawrence MD Primary Care Provider +1 [phone] Ralf Gastelum MD Unavailable [phone] Gretchen Juan MD Unavailable [phone] Katherine Snow PA-C Unavailable [phone] Per Leahy PA-C Unavailable [phone] Reason for Visit * Reason Comments E-prescribe Rx Request Encounter Details Date Type Department Care Team Description 04/28/2021 Refill Internal Medicine - [address], [address] [place] [address] Mily Lawrence MD [address] [place] [phone] E-prescribe Rx Request Social History Tobacco [...] on filedocumented in this encounter Care Teams Renal Medicine Physician Relationship Specialty Start Date End Date Mily Lawrence MD PCP - General Internal Medicine 03/09/19 Ralf Gastelum MD 300 [facility] [address] [place] [address] Specialist Cardiovascular Disease 06/08/22 Gretchen Juan MD 175 [facility] 300 [place] [address] Surgeon Neurosurgery 02/13/23 Katherine Snow PA-C [address] [address] Specialist Neurosurgery 02/13/23 Per Leahy PA-C [address] [address] Specialist Neurosurgery 02/13/23 documented as of this encounter
--- OUTSIDE RECORDS SUMMARY | 2025-01-20 13:17 | XMS_ITS | Encounter Summary ---
Author Organization [facility] Address [address] [place] [address] Care Team Providers Care Sailboat Captain Name Role Phone Mily Lawrence MD Primary Care Provider +[phone] Ralf Gastelum MD Unavailable [phone] Gretchen Juan MD Unavailable [phone] Katherine Snow PA-C Unavailable [phone] Per Leahy PA-C Unavailable [phone] Reason for Visit * Reason Comments E-prescribe Rx Request Encounter Details Date Type Department Care Team Description 12/12/2020 Refill Internal Medicine [address], [address] [place] [address] Mily Lawrence MD [address] [place] [phone] E-prescribe Rx Request Social History Tobacco [...] N/A Patients current insurance carrier is: Payor: [employer] FFS / Plan: [employer] / Product Type: MEDICAID RISK documented in this encounter Plan of Treatment Not on file documented as of this encounter Visit Diagnoses Diagnosis Need for prophylactic vaccination and inoculation against viral hepatitis Mixed hyperlipidemia Essential hypertension, benign Urinary tract infection without hematuria, site unspecified documented in this encounter Care Teams Sailboat Captain Relationship Specialty Start Date End Date Mily Lawrence MD PCP - General Internal Medicine 03/09/19 Ralf Gastelum MD 300 [facility] [address] [place] [address] Specialist Cardiovascular Disease 06/08/22 Gretchen Juan MD 175 [facility] 300 [place] [address] Surgeon Neurosurgery 02/13/23 Katherine Snow PA-C 175 [facility] 300 [place] [address] Specialist Neurosurgery 02/13/23 Per Leahy PA-C 175 [facility] 300 [place] [address] Specialist Neurosurgery 02/13/23 documented as of this encounter
--- OUTSIDE RECORDS SUMMARY | 2025-01-20 13:17 | XMS_ITS | Encounter Summary ---
Author Organization [facility] Address [address] [place] [address] Care Team Providers Care Transition Manager Name Role Phone Mily Lawrence MD Primary Care Provider Ralf Gastelum MD Unavailable [phone] Gretchen Juan MD Unavailable [phone] Katherine Snow PA-C Unavailable [phone] Per Leahy PA-C Unavailable [phone] Encounter Details Date Type Department Care Team Description 05/25/2022 SCAN [facility] [address] [address] Marci Bernardo PA-C [address] [address] Social History Tobacco Use Types [...] suspected to have Coronavirus/COVID-19? No / Unsure 05/15/2022 2:26 PM EDT documented as of this encounter Plan of Treatment Not on file documented as of this encounter Visit Diagnoses Not on filedocumented in this encounter Care Teams Transition Manager Relationship Specialty Start Date End Date Mily Lawrence MD PCP - General Internal Medicine 03/09/19 Ralf Gastelum MD 300 [facility] 154 [place] [address] Specialist Cardiovascular Disease 06/08/22 Gretchen Juan MD [address] [address] Surgeon Neurosurgery 02/13/23 Katherine Snow PA-C [address] [address] Specialist Neurosurgery 02/13/23 Per Leahy PA-C [address] [address] Specialist Neurosurgery 02/13/23 documented as of this encounter
--- OUTSIDE RECORDS SUMMARY | 2025-01-20 13:17 | XMS_ITS | Encounter Summary ---
Author Organization [facility] Address [address] [place] [address] Care Team Providers Care Supervisor Hide House Name Role Phone Mily Lawrence MD Primary Care Provider +[phone] Ralf Gastelum MD Unavailable [phone] Gretchen Juan MD Unavailable [phone] Katherine Snow PA-C Unavailable [phone] Per Leahy PA-C Unavailable [phone] Encounter Details Date Type Department Care Team Description 03/20/2024 Orders Only Medical Records [address] [place] [address] Florina Perla MD Social History Tobacco Use [...] filedocumented in this encounter Care Teams Supervisor Hide House Relationship Specialty Start Date End Date Mily Lawrence MD PCP - General Internal Medicine 03/09/19 Ralf Gastelum MD 300 [facility] 154 [place] [address] Specialist Cardiovascular Disease 06/08/22 Gretchen Juan MD [address] [address] Surgeon Neurosurgery 02/13/23 Katherine Snow PA-C [address] [address] Specialist Neurosurgery 02/13/23 Per Leahy PA-C [address] [address] Specialist Neurosurgery 02/13/23 documented as of this encounter
--- OUTSIDE RECORDS SUMMARY | 2025-01-20 13:17 | XMS_ITS | Encounter Summary ---
Author Organization [facility] Address [address] [place] [address] Care Team Providers Care Welding Estimator Name Role Phone Mily Lawrence MD Primary Care Provider [phone] Ralf Gastelum MD Unavailable [phone] Gretchen Juan MD Unavailable [phone] Katherine Snow PA-C Unavailable [phone] Per Leahy PA-C Unavailable [phone] Encounter Details Date Type Department Care Team Description 02/03/2024 Pt. Non Urgent Medical Question [facility] [address] [id number] Ralf [place] DPM [address] [id number] Social History Tobacco Use Types Packs/Day Years [...] on filedocumented in this encounter Care Teams Welding Estimator Relationship Specialty Start Date End Date Mily Lawrence MD PCP - General Internal Medicine 03/09/19 Ralf Gastelum MD 300 [facility] 154 [place] [address] Specialist Cardiovascular Disease 06/08/22 Gretchen Juan MD 175 [facility] 300 [place] [address] Surgeon Neurosurgery 02/13/23 Katherine Snow PA-C 175 [facility] 300 [place] [address] Specialist Neurosurgery 02/13/23 Per Leahy PA-C 175 [facility] 300 [place] [address] Specialist Neurosurgery 02/13/23 documented as of this encounter
--- OUTSIDE RECORDS SUMMARY | 2025-01-20 13:17 | XMS_ITS | Encounter Summary ---
Author Organization [facility] Address [address] [place] [address] Care Team Providers Care Ear Machine Operator Name Role Phone Mily Lawrence MD Primary Care Provider +1- [phone] Ralf Gastelum MD Unavailable [phone] Gretchen Juan MD Unavailable [phone] Katherine Snow PA-C Unavailable [phone] Per Leahy PA-C Unavailable [phone] Reason for Visit * Reason Onset Date Comments refill request 03/19/2024 Encounter Details Date Type Department Care Team Description 03/19/2024 Refill Internal Medicine - [address], [address] [place] [address] Mily Lawrence MD [address] [place] [phone] refill request Social History Tobacco Use [...] on filedocumented in this encounter Care Teams Ear Machine Operator Relationship Specialty Start Date End Date Mily Lawrence MD PCP - General Internal Medicine 03/09/19 Ralf Gastelum MD 300 [facility] 154 [place] [address] Specialist Cardiovascular Disease 06/08/22 Gretchen Juan MD 175 [facility] 300 [place] [address] Surgeon Neurosurgery 02/13/23 Katherine Snow PA-C [address] [address] Specialist Neurosurgery 02/13/23 Per Leahy PA-C [address] [address] Specialist Neurosurgery 02/13/23 documented as of this encounter
--- OUTSIDE RECORDS SUMMARY | 2025-01-20 13:17 | XMS_ITS | Encounter Summary ---
Author Organization [facility] Address [address] [place] [address] Care Team Providers Care Office Helper Name Role Phone Mily Lawrence MD Primary Care Provider +[phone] Ralf Gastelum MD Unavailable [phone] Gretchen Juan MD Unavailable [phone] Katherine Snow PA-C Unavailable [phone] Per Leahy PA-C Unavailable [phone] Reason for Visit * Reason Comments E-prescribe Rx Request Encounter Details Date Type Department Care Team Description 06/12/2022 Refill Internal Medicine [address], [address] [place] [address] Mily Lawrence MD [address] [place] [phone] E-prescribe Rx Request Social History Tobacco [...] on filedocumented in this encounter Care Teams Office Helper Relationship Specialty Start Date End Date Mily Lawrence MD PCP - General Internal Medicine 03/09/19 Ralf Gastelum MD 300 [facility] [address] [place] [address] Specialist Cardiovascular Disease 06/08/22 Gretchen Juan MD 175 [facility] 300 [place] [address] Surgeon Neurosurgery 02/13/23 Katherine Snow PA-C [address] [address] Specialist Neurosurgery 02/13/23 Per Leahy PA-C 175 [facility] 300 [place] [address] Specialist Neurosurgery 02/13/23 documented as of this encounter
--- OUTSIDE RECORDS SUMMARY | 2025-01-20 13:17 | XMS_ITS | Encounter Summary ---
Author Organization [facility] Address [address] [place] [address] Care Team Providers Care Retail Event And Sales Assistant Name Role Phone Mily Lawrence MD Primary Care Provider [phone] Ralf Gastelum MD Unavailable [phone] Gretchen Juan MD Unavailable [phone] Katherine Snow PA-C Unavailable [phone] Per Leahy PA-C Unavailable [phone] Encounter Details Date Type Department Care Team Description 09/23/2020 Orders Only Medical Records [address] [place] [address] Mily Lawrence MD [address] [place] [phone] Breast mass, left (Primary Dx) Social [...] Mily Lawrence MD ULTRASOUND Performing Organization Address City/State/[facility] Co de Phone Number [address] * OUTSIDE ULTRASOUND (09/22/2020) Mily Lawrence MD RADIOLOGY * OUTSIDE MAMMO (09/22/2020) Mily Lawrence MD RADIOLOGY documented in this encounter Visit Diagnoses Diagnosis Breast mass, left- Primary Lump or mass in breast documented in this encounter Care Teams Retail Event And Sales Assistant Relationship Specialty Start Date End Date Mily Lawrence MD PCP - General Internal Medicine 03/09/19 Ralf Gastelum MD 300 [facility] [address] [place] [address] Specialist Cardiovascular Disease 06/08/22 Gretchen Juan MD 175 [facility] 300 [place] [address] Surgeon Neurosurgery 02/13/23 Katherine Snow PA-C 175 [facility] 300 [place] [address] Specialist Neurosurgery 02/13/23 Per Leahy PA-C 175 [facility] 300 [place] [address] Specialist Neurosurgery 02/13/23 documented as of this encounter
--- OUTSIDE RECORDS SUMMARY | 2025-01-20 13:17 | XMS_ITS | Encounter Summary ---
Author Organization [facility] Address [address] [place] [address] Care Team Providers Care Retail Pharmacy Manager Name Role Phone Mily Lawrence MD Primary Care Provider [phone] Ralf Gastelum MD Unavailable [phone] Gretchen Juan MD Unavailable [phone] Katehrine Snow PA-C Unavailable [phone] Per Leahy PA-C Unavailable [phone] Encounter Details Date Type Department Care Team Description 03/22/2021 [facility] Medical Records [address] [place] [address] Abstract, Provider Social History Tobacco Use Types [...] filedocumented in this encounter Care Teams Retail Pharmacy Manager Relationship Specialty Start Date End Date Mily Lawrence MD PCP - General Internal Medicine 03/09/19 Ralf Gastelum MD 300 [facility] [address] [place] [address] Specialist Cardiovascular Disease 06/08/22 Gretchen Juan MD 175 [facility] 300 [place] [address] Surgeon Neurosurgery 02/13/23 Katherine Snow PA-C 175 [facility] 300 [place] [address] Specialist Neurosurgery 02/13/23 Per Leahy PA-C 175 [facility] 300 [place] [address] Specialist Neurosurgery 02/13/23 documented as of this encounter
--- OUTSIDE RECORDS SUMMARY | 2025-01-20 13:17 | XMS_ITS | Encounter Summary ---
Author Organization [facility] Address [address] [place] [address] Care Team Providers Care Instant Print Operator Name Role Phone Mily Lawrence MD Primary Care Provider Ralf aGstelum MD Unavailable [phone] Gretchen Juan MD Unavailable [phone] Katherine Snow PA-C Unavailable [phone] Per Leahy PA-C Unavailable [phone] Reason for Visit * Reason Onset Date Comments Surgery (Schedule) 01/01/2024 Encounter Details Date Type Department Care Team Description 01/01/2024 Telephone [facility] [address] [address] Brian Ferrari MD [address] [phone] Surgery (Schedule) Social History Tobacco Use Types [...] encounter Miscellaneous Notes * Telephone Encounter - Fallon Chato - 01/01/2024 12:37 PM EDT Hey- Patient is calling to ask, she needs a lumbar injection. It is currently scheudled for 01/09/24 but patient is asking if this is ok to proceed or should she wait til after surgery. Please advise. fallon Landry documented in this encounter Plan of Treatment Not on file documented as of this encounter Visit Diagnoses Not on filedocumented in this encounter Care Teams Instant Print Operator Relationship Specialty Start Date End Date Mily Lawrence MD PCP - General Internal Medicine 03/09/19 Ralf Gastelum MD 300 [facility] 154 [place] [address] Specialist Cardiovascular Disease 06/08/22 Gretchen Juan MD [address] [address] Surgeon Neurosurgery 02/13/23 Katherine Snow PA-C [address] [address] Specialist Neurosurgery 02/13/23 Per Leahy PA-C 175 [facility] 300 [place] [address] Specialist Neurosurgery 02/13/23 documented as of this encounter
--- OUTSIDE RECORDS SUMMARY | 2025-01-20 13:17 | XMS_ITS | Encounter Summary ---
Author Organization [facility] Address [address] [place] [address] Care Team Providers Care Ticket Counter Name Role Phone Mily Lawrence MD Primary Care Provider Ralf Gastelum MD Unavailable [phone] Gretchen Juan MD Unavailable [phone] Katherine Snow PA-C Unavailable [phone] Per Leahy PA-C Unavailable [phone] Reason for Visit * Reason Onset Date Comments Medication 01/27/2024 Encounter Details Date Type Department Care Team Description 01/27/2024 Telephone [facility] [address] [address] Brian Ferrari MD [address] [address] Medication Social History Tobacco Use Types Packs/Day [...] on filedocumented in this encounter Care Teams Ticket Counter Relationship Specialty Start Date End Date Mily Lawrence MD PCP - General Internal Medicine 03/09/19 Ralf Gastelum MD 300 [facility] [address] [place] [address] Specialist Cardiovascular Disease 06/08/22 Gretchen Juan MD 175 [facility] 300 [place] [address] Surgeon Neurosurgery 02/13/23 Katherine Snow PA-C 175 [facility] 300 [place] [address] Specialist Neurosurgery 02/13/23 Per Leahy PA-C 175 [facility] 300 [place] [address] Specialist Neurosurgery 02/13/23 documented as of this encounter
--- OUTSIDE RECORDS SUMMARY | 2025-01-20 13:17 | XMS_ITS | Encounter Summary ---
Author Organization [facility] Address [address] [place] [address] Care Team Providers Care Blow Moulding Machine Operator Name Role Phone Mily Lawrence MD Primary Care Provider [phone] Ralf Gastelum MD Unavailable [phone] Gretchen Juan MD Unavailable [phone] Katherine Snow PA-C Unavailable [phone] Per Leahy PA-C Unavailable [phone] Reason for Visit * Reason Comments E-prescribe Rx Request Encounter Details Date Type Department Care Team Description 01/30/2021 Refill Internal Medicine [address], [address] [place] [address] Mily Lawrence MD [address] [place] [phone] E-prescribe Rx Request Social History Tobacco [...] filedocumented in this encounter Care Teams Blow Moulding Machine Operator Relationship Specialty Start Date End Date Mily Lawrence MD PCP - General Internal Medicine 03/09/19 Ralf Gastelum MD 300 [facility] [address] [place] [address] Specialist Cardiovascular Disease 06/08/22 Gretchen Juan MD 175 [facility] 300 [place] [address] Surgeon Neurosurgery 02/13/23 Katherine Snow PA-C 175 [facility] [address] [place] [address] Specialist Neurosurgery 02/13/23 Per Leahy PA-C 175 [facility] [address] [place] [address] Specialist Neurosurgery 02/13/23 documented as of this encounter
--- OUTSIDE RECORDS SUMMARY | 2025-01-20 13:17 | XMS_ITS | Encounter Summary ---
Author Organization [facility] Address [address] [place] [address] Care Team Providers Care Putty Remover Name Role Phone Mily Lawrence MD Primary Care Provider Ralf Gastelum MD Unavailable [phone] Gretchen Juan MD Unavailable [phone] Katherine Snow PA-C Unavailable [phone] Per Leahy PA-C Unavailable [phone] Reason for Visit * Reason Onset Date Comments Form 01/02/2024 Encounter Details Date Type Department Care Team Description 01/02/2024 Telephone [facility] [address] [address] Brian Ferrari MD [address] [address] Form Social History Tobacco Use Types Packs/Day [...] PM EDT I faxed the form to [facility] * Telephone Encounter - Sussy [...] questions and/or when item(s) are available to picker/puller: [phone]. Thanks, DH documented in this encounter Plan of Treatment Not on file documented as of this encounter Visit Diagnoses Not on filedocumented in this encounter Care Teams Putty Remover Relationship Specialty Start Date End Date Mily Lawrence MD PCP - General Internal Medicine 03/09/19 Ralf Gastelum MD 300 [place] [address] Specialist Cardiovascular Disease 06/08/22 Gretchen Juan MD [address] [id number] Surgeon Neurosurgery 02/13/23 Katherine Snow PA-C [address] [address] Specialist Neurosurgery 02/13/23 Per Leahy PA-C 175 [facility] [address] [place] [address] Specialist Neurosurgery 02/13/23 documented as of this encounter
--- OUTSIDE RECORDS SUMMARY | 2025-01-20 13:17 | XMS_ITS | Encounter Summary ---
Author Organization [facility] Address [address] [place] [address] Care Team Providers Care Printed Forms Proofreader Name Role Phone Mily Lawrence MD Primary Care Provider [phone] Ralf Gastelum MD Unavailable [phone] Gretchen Juan MD Unavailable [phone] Katherine Snow PA-C Unavailable [phone] Per Leahy PA-C Unavailable [phone] Encounter Details Date Type Department Care Team Description 2020 Telephone Internal Medicine - [address], [address] [place] [address] Mily Lawrence MD [address] [place] [phone] Social History Tobacco Use Types Packs/Day [...] filedocumented in this encounter Care Teams Printed Forms Proofreader Relationship Specialty Start Date End Date Mily Lawrence MD PCP - General Internal Medicine 03/09/19 Ralf Gastelum MD 300 [facility] [address] [place] [address] Specialist Cardiovascular Disease 06/08/22 Gretchen Juan MD 175 [facility] 300 [place] [address] Surgeon Neurosurgery 02/13/23 Katherine Snow PA-C 175 [facility] 300 [place] [address] Specialist Neurosurgery 02/13/23 Per Leahy PA-C [address] [place] [address] [address] [place] [address] Specialist Neurosurgery 02/13/23 documented as of this encounter
--- OUTSIDE RECORDS SUMMARY | 2025-01-20 13:17 | XMS_ITS | Encounter Summary ---
Author Organization [facility] Address [address] [place] [address] Care Team Providers Care Lottery Sales Clerk Name Role Phone Mily Lawrence MD Primary Care Provider [phone] Ralf Gastelum MD Unavailable [phone] Gretchen Juan MD Unavailable [phone] Katherine Snow PA-C Unavailable [phone] Per Leahy PA-C Unavailable [phone] Encounter Details Date Type Department Care Team Description 01/28/2024 Ssds Mk 2 Advanced Operator Report Medical Records [address] [place] [address] Sravanthi Doss Social History Tobacco Use Types [...] on filedocumented in this encounter Care Teams Lottery Sales Clerk Relationship Specialty Start Date End Date Mily Lawrence MD PCP - General Internal Medicine 03/09/19 Ralf Gastelum MD 300 [facility] [address] [place] [address] Specialist Cardiovascular Disease 06/08/22 Gretchen Juan MD 175 [facility] 300 [place] [address] Surgeon Neurosurgery 02/13/23 Katherine Snow PA-C 175 [facility] 300 [place] [address] Specialist Neurosurgery 02/13/23 Per Leahy PA-C 175 [facility] 300 [place] [address] Specialist Neurosurgery 02/13/23 documented as of this encounter
--- OUTSIDE RECORDS SUMMARY | 2025-01-20 13:17 | XMS_ITS | Encounter Summary ---
Author Organization [facility] Address [address] [place] [address] Care Team Providers Care Patient Support Tech Name Role Phone Mily Lawrence MD Primary Care Provider [phone] Ralf Gastelum MD Unavailable [phone] Gretchen Juan MD Unavailable [phone] Katherine Snow PA-C Unavailable [phone] Per Leahy PA-C Unavailable [phone] Encounter Details Date Type Department Care Team Description 09/12/2022 Tipple Worker Report Medical Records [address] [place] [address] Evelio Smith Social History Tobacco Use Types [...] filedocumented in this encounter Care Teams Patient Support Tech Relationship Specialty Start Date End Date Mily Lawrence MD PCP - General Internal Medicine 03/09/19 Ralf Gastelum MD 300 [facility] [address] [place] [address] Specialist Cardiovascular Disease 06/08/22 Gretchen Juan MD 175 [facility] 300 [place] [address] Surgeon Neurosurgery 02/13/23 Katherine Snow PA-C 175 [facility] 300 [place] [address] Specialist Neurosurgery 02/13/23 Per Leahy PA-C 175 [facility] 300 [place] [address] Specialist Neurosurgery 02/13/23 documented as of this encounter
--- OUTSIDE RECORDS SUMMARY | 2025-01-20 13:17 | XMS_ITS | Clinical Summary ---
Author Organization [facility] Address [address] [place] [address] Care Team Providers Care Tassel Maker Name Role Phone Mily Lawrence MD Primary Care Provider [phone] Allergies Active Allergy Reactions Criticality Noted Date [...] this topic Medical Devices Implanted Type Area Mica Miner Blasting Device Identifier Shelf Expiration Date Model / Serial / Lot Putty Vesuvius 100 5ml Stry-K2m [id number] - [id number] Implanted:Qty: 1 on 07/16/2024 by Nathan Hayward MD at [facility] Lateral: Spine Lumbar LAXMI SPINE 02/17/2027 [id number] / [id number] / Bone Graft Spine Infus Xsm Medt-Sofa [id number] - [id number] Implanted:Qty: 1 on 07/16/2024 by Nathan Hayward MD at [facility] Lateral: Spine Lumbar MEDTR[employer] SOFAMOR DANEK 11/20/2025 [id number] / / [id number] [place] Interbody System Implanted:Qty: 1 on 07/16/2024 by Nathan Hayward MD at [facility] Med Lateral: Spine Lumbar LAXMI - MEDICAL 10/30/2028 [id number] / / [id number] Plate [facility] 2hl 18mm Stry-K2m [id number] - [id number] Implanted:Qty: 1 on 07/16/2024 by Nathan Hayward MD at [facility] Med Lateral: Spine Lumbar LAXMI SPINE [id number] / / 5.0x40mm Screw Implanted:Qty: 2 on 07/16/2024 by Nathan Hayward MD at [facility] Med Lateral: Spine Lumbar LAXMI - MEDICAL [id number] / / Plate Assembly Screw Implanted:Qty: 1 on 07/16/2024 by Nathan Hayward MD at [facility] Lateral: Spine Lumbar LAXMI - MEDICAL [id number] / / Advance Directives For more information, please contact: [phone] Latest Code Status on File Code Status [...] way: discussion with patient . Care Teams Tassel Maker Relationship Specialty Start Date End Date Mily Lawrence MD [address] [place] [phone] PCP - General Internal Medicine 06/12/17
--- OUTSIDE RECORDS SUMMARY | 2025-01-20 13:17 | XMS_ITS | Encounter Summary ---
Author Organization [facility] Address [address] [place] [address] Care Team Providers Care Esthetician Makeup Artist Name Role Phone Mily Lawrence MD Primary Care Provider [phone] Ralf Gastelum MD Unavailable [phone] Grethcen Juan MD Unavailable [phone] Katherine Snow PA-C Unavailable [phone] Per Leahy PA-C Unavailable [phone] Encounter Details Date Type Department Care Team Description 09/26/2020 Orders Only Medical Records [address] [place] [address] Guillaume Casey MD Social History Tobacco Use Types Packs/Day [...] Date/Time Associated Diagnosis Comments OUTSIDE IMAGING Routine 07/27/2020 documented in this encounter Results * OUTSIDE IMAGING (07/27/2020) Guillaume Casey MD RADIOLOGY documented in this encounter Visit Diagnoses Not on filedocumented in this encounter Care Teams Esthetician Makeup Artist Relationship Specialty Start Date End Date Mily Lawrence MD PCP - General Internal Medicine 03/09/19 Ralf Gastelum MD 300 [facility] [address] [place] [address] Specialist Cardiovascular Disease 06/08/22 Gretchen Juan MD 175 [facility] 300 [place] [address] Surgeon Neurosurgery 02/13/23 Katherine Snow PA-C 175 [facility] 300 [place] [address] Specialist Neurosurgery 02/13/23 Per Leahy PA-C 175 [facility] 300 [place] [address] Specialist Neurosurgery 02/13/23 documented as of this encounter
--- OUTSIDE RECORDS SUMMARY | 2025-01-20 13:17 | XMS_ITS | Encounter Summary ---
Author Organization [facility] Address [address] [place] [address] Care Team Providers Care Pot Lining Supervisor Name Role Phone Mily Lawrence MD Primary Care Provider [phone] Ralf Gastelum MD Unavailable [phone] Gretcehn Juan MD Unavailable [phone] Katherine Snow PA-C Unavailable [phone] Per Leahy PA-C Unavailable [phone] Reason for Visit * Reason Comments E-prescribe Rx Request Encounter Details Date Type Department Care Team Description 04/05/2021 Refill Internal Medicine - [address], [address] [place] [address] Mily Lawrence MD [address] [place] [phone] E-prescribe Rx Request Social History Tobacco [...] on filedocumented in this encounter Care Teams Pot Lining Supervisor Relationship Specialty Start Date End Date Mily Lawrence MD PCP - General Internal Medicine 03/09/19 Ralf Gastelum MD 300 [facility] 154 [place] [address] Specialist Cardiovascular Disease 06/08/22 Gretchen Juan MD [address] [address] Surgeon Neurosurgery 02/13/23 Katherine Snow PA-C [address] [address] Specialist Neurosurgery 02/13/23 Per Leahy PA-C [address] [address] Specialist Neurosurgery 02/13/23 documented as of this encounter
--- OUTSIDE RECORDS SUMMARY | 2025-01-20 13:17 | XMS_ITS | Encounter Summary ---
Author Organization [facility] Address [address] [place] [address] Care Team Providers Care Logging Supervisor Name Role Phone Mily Lawrence MD Primary Care Provider [phone] Ralf Gastelum MD Unavailable [phone] Gretchen Juan MD Unavailable [phone] Katherine Snow PA-C Unavailable [phone] Per Leahy PA-C Unavailable [phone] Encounter Details Date Type Department Care Team Description 03/27/2024 Salesperson Automobiles Report Medical Records [address] [place] [address] Evelio Smith Social History Tobacco Use Types [...] on filedocumented in this encounter Care Teams Logging Supervisor Relationship Specialty Start Date End Date Mily Lawrence MD PCP - General Internal Medicine 03/09/19 Ralf Gastelum MD 300 [facility] [address] [place] [address] Specialist Cardiovascular Disease 06/08/22 Gretchen Juan MD 175 [facility] 300 [place] [address] Surgeon Neurosurgery 02/13/23 Katherine Snow PA-C 175 [facility] 300 [place] [address] Specialist Neurosurgery 02/13/23 Per Leahy PA-C 175 [facility] 300 [place] [address] Specialist Neurosurgery 02/13/23 documented as of this encounter
--- OUTSIDE RECORDS SUMMARY | 2025-01-20 13:17 | XMS_ITS | Encounter Summary ---
Author Organization [facility] Address [address] [place] [address] Care Team Providers Care Airways Operations Specialist Name Role Phone Mily Lawrence MD Primary Care Provider [phone] Ralf Gastelum MD Unavailable [phone] Gretchen Juan MD Unavailable [phone] Katherine Snow PA-C Unavailable [phone] Per Leahy PA-C Unavailable [phone] Reason for Visit * Reason Comments E-prescribe Rx Request Encounter Details Date Type Department Care Team Description 08/20/2020 [facility] Internal Medicine - [address], [address] [place] [address] Mily Lawrence MD [address] [place] [phone] E-prescribe Rx Request Social History Tobacco [...] Notes * Telephone Encounter - Carlie Carias L.P.N. - 08/22/2020 11:27 AM EST Refill on gabapentin 300 mg every 8 hours Last refill 06/28/20 #[address] Lawrence 06/28/[address] Lawrence 10/28/2019 thanks Lupe Carias LPN * Telephone Encounter - Sapna Concepcion - 08/22/2020 10:52 AM EST Patient would like script to be: E-PRESCRIBED/FAXED TO PHARMACY WHEN WAS THE PATIENT'S LAST APPOINTMENT IN ADULT MEDICINE? 06/28/2020 WHEN WAS THE LAST TIME THE PATIENT SAW THEIR PCP? Same as above Does patient have an upcoming appointment? Yes 10/28/2020 (THE MEDICATION REQUESTED IS ON THE MED [...] N/A Patients current insurance carrier is: Payor: [email or web address] FFS / Plan: [employer] / Product Type: MEDICAID RISK documented in this encounter Plan of Treatment Not on file documented as of this encounter Visit Diagnoses Diagnosis Need for prophylactic vaccination and inoculation against viral hepatitis Mixed hyperlipidemia Essential hypertension, benign Urinary tract infection without hematuria, site unspecified documented in this encounter Care Teams Airways Operations Specialist Relationship Specialty Start Date End Date Mily Lawrence MD PCP - General Internal Medicine 03/09/19 Ralf Gastelum MD [address] [facility] [address] [place] [address] Specialist Cardiovascular Disease 06/08/22 Gretchen Juan MD 175 [facility] 300 [place] [address] Surgeon Neurosurgery 02/13/23 Katherine Snow PA-C 175 [facility] 300 [place] [address] Specialist Neurosurgery 02/13/23 Per Leahy PA-C 175 [facility] 300 [place] [address] Specialist Neurosurgery 02/13/23 documented as of this encounter
--- OUTSIDE RECORDS SUMMARY | 2025-01-20 13:17 | XMS_ITS | Encounter Summary ---
Author Organization [facility] Address [address] [place] [address] Care Team Providers Care Hob Machine Operator Name Role Phone Mily Lawrence MD Primary Care Provider +[phone] Ralf Gastelum MD Unavailable [phone] Gretchen Juan MD Unavailable [phone] Katherine Snow PA-C Unavailable [phone] Per Leahy PA-C Unavailable [phone] Encounter Details Date Type Department Care Team Description 01/22/2024 Orders Only Medical Records [address] [place] [id number] [place] [address] Social History Tobacco Use Types Packs/Day Years [...] PLAIN FILM (01/21/2024) Narrative Authorizing Provider Result [facility] RADIOLOGY documented in this encounter Visit Diagnoses Not on filedocumented in this encounter Care Teams Hob Machine Operator Relationship Specialty Start Date End Date Mily Lawrence MD PCP - General Internal Medicine 03/09/19 Ralf Gastelum MD 300 [facility] [address] [place] [address] Specialist Cardiovascular Disease 06/08/22 Gretchen Juan MD 175 [facility] 300 [place] [address] Surgeon Neurosurgery 02/13/23 Katherine Snow PA-C 175 [facility] 300 [place] [address] Specialist Neurosurgery 02/13/23 Per Leahy PA-C 175 [facility] 300 [place] [address] Specialist Neurosurgery 02/13/23 documented as of this encounter
[2025-02-03 12:25] VITALS: BMI 31.7
== END 2025-01-21 16:29 | disposition home or self-care (01) ==
LOC: HO.ENCR 10:59
PROVIDERS: PCP Internal Medicine; Visit Provider Dietitian, Registered
DX: E66.9 Obesity, unspecified (principal)

== ENCOUNTER → 2025-01-20 10:59 | Outpatient (BNVA) | payer OTHER, SELFPAY | PROVIDERS: PCP Internal Medicine; Visit Provider Dietitian, Registered | DX: E66.9 Obesity, unspecified (principal); Z68.31 Body mass index [BMI] 31.0-31.9, adult | CPT/HCPCS: 97802 ==

== ENCOUNTER 2025-02-23 15:59 | Outpatient (AMB) | payer OTHER, SELFPAY ==
--- NOTE | 2025-02-23 16:00 | A.OFFVIS_ITS ---
Vital Signs 02/23/25 16:01 Height 5 ft 4 in Weight 190 lb BMI 32.6 BP 140/90 H Blood Pressure Location Lt brachial Position Sitting Pulse 78 Pulse Source Pulse Oximeter Pulse Oximetry (%) 98 Oxygen Delivery Method Room Air Intake Visit Reasons: Botox Intake Note: patient presents for botox injection. pharmacy supplied Helicopter Repairer Required: No Allergies Sulfa (Sulfonamide Antibiotics) Allergy (Mild, Verified 02/23/25 16:01) Hives adhesive tape Adverse Reaction (Mild, Verified 02/23/25 16:01) Rash Medication List - Last Reconciled 02/23/25 by Florina Perla MD acetaminophen 500 mg PO Q6H PRN acetaminophen ER (Tylenol 8 Hour) 650 mg PO Q12H atorvastatin 10 mg PO DAILY celecoxib 0 mg PO cetirizine (Zyrtec) 10 mg PO DAILY PRN cholecalciferol (vitamin D3) (Vitamin D3) 50 mcg PO DAILY cyclobenzaprine 10 mg PO BID 30 days diclofenac sodium 1% 4 grams topical BID gabapentin orally 2 times a day; 30 days galcanezumab-gnlm (Emgality Pen) 240 mg (2 mL) subcut ONCE 30 days hydrochlorothiazide 25 mg PO DAILY ketoconazole 2% topical lisinopril 30 mg PO DAILY melatonin 3 mg PO BEDTIME PRN metoprolol tartrate 50 mg PO BID onabotulinumtoxinA (Botox) 100 units IM ONCE 12 weeks ondansetron HCl 4 mg PO Q8H PRN polyethylene glycol 3350 17 grams PO DAILY pyridoxine (vitamin B6) (Vitamin B-6) 250 mg PO DAILY sertraline 100 mg PO DAILY thiamine HCl (vitamin B1) mg PO tramadol 50 mg PO QID PRN trazodone 50 mg PO BEDTIME ubrogepant (Ubrelvy) 50 - 100 mg (0.5 - 1 x 100 mg) PO ONCE PRN 30 days HPI Comments Details: 59y/o female comes for treatment of her left hemifacial spasm with botox Effectiveness of last two botox: Change in intensity of spasms- decreased Change in frequency of spasms- decreased Changes in quality of life- improved Have at least three months elapsed since last treatment (Last botox date - frequency of injections)?- 4 months ago Botulinum toxin type A 100 units Lot no [id number] X 1 Exp 02/2027 was diluted with 1 cc of normal saline at a concentration of 5 units in 0.1 cc. Side effects were discussed and an informed consent was obtained. Muscles injected left Lateral canthus - 10 units each left Lateral Lower eyelid-10units each left zygomaticus 10 units left Nasolabial fold 10 units each Venkata temporlais 20 units each Total used 80units discarded 20 units PFSH Medical History Radiculopathy Cervical radiculopathy at C7 Hirsutism Vitamin D deficiency Insomnia Depression with anxiety GERD (gastroesophageal reflux disease) HLD (hyperlipidemia) Obstructive sleep apnea Urinary incontinence Post-thrombotic syndrome Congestive heart failure (CHF) Degenerative disc disease, cervical Osteoarthritis Lumbosacral radiculitis Cervical post-laminectomy syndrome Brachial radiculitis Surgical History Hx of knee surgery H/O breast biopsy History of lumbar spinal fusion S/P laparoscopic surgery Hx of tubal ligation History of total knee replacement (TKR) Hx of neck surgery Hx of hand surgery Hx of colonoscopy Family History Mother Breast CA DM (diabetes mellitus) HTN (hypertension) Arthritis ESRD (end stage renal disease) Father Arthritis ESRD (end stage renal disease) Maternal Aunt Breast CA Social History Household Members: None Alcohol intake: current Alcohol intake frequency: a few times a week Patient Tobacco Use Status: Never used Tobacco Substance Use Type: Marijuana Physical Exam Vital Signs: BMI result Body Mass Index 32.6 Const Other: left hemifacial spasm Office Procedures Botulinum toxin Injection 24687 - Facial Nerve Procedure code (CPT) selection complete Office Meds onabotulinumtoxinA 100 unit solution for injection Performing Provider: Florina Perla MD Performing Location: [facility] Administered by: Florina Perla MD on 02/23/25 16:16 Dose Route Admin Location Dispensed Lot Number Expiration Date [facility] [place]NOTE 2[place] Deputy Sheriff Chief 80 unit subcut 100 units [id number] ALLERGAN/BOTOX Comments: see HPI Assessment & Plan Assessment & Plan (1) Hemifacial spasm of left side of face: Code(s): G51.32 - Clonic hemifacial spasm, left Category: Medical Plan Patient tolerated the procedure well she will call with any side effects Orders: Orders AMB Botulinum toxin Injection Today G51.32 - Clonic hemifacial spasm, left Medications: New onabotulinumtoxinA 100 units subcut ONCE 1 ea 0RF hemifacial spasm G51.32 - Clonic hemifacial spasm, left Coding Level of Care Code Est Pt Level 1 (64769) Diagnoses Hemifacial spasm of left side of face G51.32 CPT Codes Botox Injection - Botox 2: 61683 - Facial Nerve ([id number])
[2025-02-23 16:01] VITALS: BP 140/90; PULSE 78; O2SAT 98; BMI 32.6
--- OUTSIDE RECORDS SUMMARY | 2025-02-23 16:55 | XMS_ITS | Encounter Summary ---
Author Organization [facility] Address [address] [place] [address] Care Team Providers Care City Routeman Name Role Phone Mily Lawrence MD Primary Care Provider [phone] Ralf Gastleum MD Unavailable [phone] Gretchen Juan MD Unavailable [phone] Katherine Snow PA-C Unavailable [phone] Per Leahy PA-C Unavailable [phone] Encounter Details Date Type Department Care Team Description 08/10/2021 Orders Only Medical Records [address] [place] [address] Maye Hamilton MD [address] [place] [address] [id number] Social History Tobacco Use Types Packs/Day Years [...] on filedocumented in this encounter Care Teams City Routeman Relationship Specialty Start Date End Date Mily Lawrence MD PCP - General Internal Medicine 03/09/19 Ralf Gastelum MD 300 [facility] [address] [place] [address] Specialist Cardiovascular Disease 06/08/22 Gretchen Juan MD 175 [facility] 300 [place] [address] Surgeon Neurosurgery 02/13/23 Katherine Snow PA-C 175 [facility] 300 [place] [address] Specialist Neurosurgery 02/13/23 Per Leahy PA-C 175 [facility] 300 [place] [address] Specialist Neurosurgery 02/13/23 documented as of this encounter
--- OUTSIDE RECORDS SUMMARY | 2025-02-23 16:55 | XMS_ITS | Encounter Summary ---
Author Organization [facility] Address [address] [place] [address] Care Team Providers Care Emergency Planner Name Role Phone Mily Lawrence MD Primary Care Provider [phone] Ralf Gastelum MD Unavailable [phone] Gretchen Juan MD Unavailable [phone] Katherine Snow PA-C Unavailable [phone] Per Leahy PA-C Unavailable [phone] Reason for Visit * Reason Comments E-prescribe Rx Request Encounter Details Date Type Department Care Team Description 08/17/2021 Refill Internal Medicine - [address], [address] [place] [address] Mily Lawrence MD [address] [place] [phone] E-prescribe Rx Request Social History Tobacco [...] HOURS LAST REFILL 03/13/2021 #90 1 REFILL LATEX SPOOLER ON DESK * Telephone Encounter - Yulissa Blank - 08/18/2021 11:16 AM EDT [place] 05/10/21 NOV 08/31/21 documented in this encounter Plan of Treatment Not on file documented as of this encounter Visit Diagnoses Diagnosis Need for prophylactic vaccination and inoculation against viral hepatitis Mixed hyperlipidemia Essential hypertension, benign Urinary tract infection without hematuria, site unspecified documented in this encounter Care Teams Emergency Planner Relationship Specialty Start Date End Date Mily Lawrence MD PCP - General Internal Medicine 03/09/19 Ralf Gastelum MD 300 [facility] [address] [place] [address] Specialist Cardiovascular Disease 06/08/22 Gretchen Juan MD 175 [facility] 300 [place] [address] Surgeon Neurosurgery 02/13/23 Katherine Snow PA-C [address] [id number] Specialist Neurosurgery 02/13/23 Per Leahy PA-C [address] [address] Specialist Neurosurgery 02/13/23 documented as of this encounter
--- OUTSIDE RECORDS SUMMARY | 2025-02-23 16:55 | XMS_ITS | Encounter Summary ---
Author Organization [facility] Address [address] [place] [address] Care Team Providers Care Golf Shoe Spike Assembler Name Role Phone Mily Lawrence MD Primary Care Provider [phone] Ralf Gastelum MD Unavailable [phone] Gretchen Juan MD Unavailable [phone] Katherine Snow PA-C Unavailable [phone] Per Leahy PA-C Unavailable [phone] Encounter Details Date Type Department Care Team Description 09/22/2019 Plugger Worker Report Medical Records [address] [place] [address] Camilla Lopez MD Social History Tobacco Use [...] filedocumented in this encounter Care Teams Golf Shoe Spike Assembler Relationship Specialty Start Date End Date Mily Lawrence MD PCP - General Internal Medicine 03/09/19 Ralf Gastelum MD 300 [facility] [address] [place] [address] Specialist Cardiovascular Disease 06/08/22 Gretchen Juan MD 175 [facility] 300 [place] [address] Surgeon Neurosurgery 02/13/23 Katherine Snow PA-C 175 [facility] 300 [place] [address] Specialist Neurosurgery 02/13/23 Per Leahy PA-C 175 [facility] 300 [place] [address] Specialist Neurosurgery 02/13/23 documented as of this encounter
--- OUTSIDE RECORDS SUMMARY | 2025-02-23 16:55 | XMS_ITS | Encounter Summary ---
Author Organization [facility] Address [address] [place] [address] Care Team Providers Care Clinical Unit Educator Name Role Phone Mily Lawrence MD Primary Care Provider [phone] Trey Mueller MD Primary Care Provider Unavaila ble Mily Lawrence MD Primary Care Provider [phone] Ralf Gastelum MD Unavailable [phone] Gretchen Juan MD Unavailable [phone] Katherine Snow PA-C Unavailable [phone] Per Leahy PA-C Unavailable [phone] Encounter Details Date Type Department Care Team Description 10/24/2018 Lotteries Agent Report Medical Records [address] [place] [address] Per Leahy PA-C 175 [facility] 300 [place] [address] Social History Tobacco Use Types Packs/Day Years [...] filedocumented in this encounter Care Teams Clinical Unit Educator Relationship Specialty Start Date End Date Mily Lawrence MD PCP - General Internal Medicine 03/13/17 01/01/19 Trey Mueller MD PCP - General Internal Medicine 01/02/19 03/08/19 Mily Lawrence MD PCP - General Internal Medicine 03/09/19 Ralf Gastelum MD 300 [facility] [address] [place] [address] Specialist Cardiovascular Disease 06/08/22 Gretchen Juan MD [address] [address] Surgeon Neurosurgery 02/13/23 Katherine Snow PA-C 175 [facility] 300 [place] [address] Specialist Neurosurgery 02/13/23 Per Leahy PA-C 175 [facility] 300 [place] [address] Specialist Neurosurgery 02/13/23 documented as of this encounter
--- OUTSIDE RECORDS SUMMARY | 2025-02-23 16:55 | XMS_ITS | Encounter Summary ---
Author Organization [facility] Address [address] [place] [address] Care Team Providers Care Painter Helper Spray Name Role Phone Mily Lawrence MD Primary Care Provider [phone] Trey Mueller MD Primary Care Provider Unavaila ble Mily Lawrence MD Primary Care Provider [phone] Ralf Gastelum MD Unavailable [phone] Gretchen Juan MD Unavailable [phone] Katherine Snow PA-C Unavailable [phone] Per Leahy PA-C Unavailable [phone] Encounter Details Date Type Department Care Team Description 11/19/2018 Spring Coiler Report Medical Records [address] [place] [address] Marci Bernardo PA-C [address] [place] [address] Social History Tobacco Use Types Packs/Day Years [...] on filedocumented in this encounter Care Teams Painter Helper Spray Relationship Specialty Start Date End Date Mily Lawrence MD PCP - General Internal Medicine 03/13/17 01/01/19 Trey Mueller MD PCP - General Internal Medicine 01/02/19 03/08/19 Mily Lawrence MD PCP - General Internal Medicine 03/09/19 Ralf Gastelum MD 300 [facility] 154 [place] [address] Specialist Cardiovascular Disease 06/08/22 Gretchen Juan MD [address] [address] Surgeon Neurosurgery 02/13/23 Katherine Snow PA-C [address] [address] Specialist Neurosurgery 02/13/23 Per Leahy PA-C [address] [address] Specialist Neurosurgery 02/13/23 documented as of this encounter
--- OUTSIDE RECORDS SUMMARY | 2025-02-23 16:55 | XMS_ITS | Encounter Summary ---
Author Organization [facility] Address [address] [place] [address] Care Team Providers Care Senior Finance Manager Name Role Phone Mily Lawrence MD Primary Care Provider Ralf Gastelum MD Unavailable [phone] Gretchen Juan MD Unavailable [phone] Katherine Snow PA-C Unavailable [phone] Per Leahy PA-C Unavailable [phone] Encounter Details Date Type Department Care Team Description 10/25/2022 Telephone [facility] Medical [facility] 175 [facility] [address] [place] [phone] Marci Bernardo PA-C 175 [facility] [address] [place] [address] Social History Tobacco Use Types Packs/Day [...] filedocumented in this encounter Care Teams Senior Finance Manager Relationship Specialty Start Date End Date Mily Lawrence MD PCP - General Internal Medicine 03/09/19 Ralf Gastelum MD 300 [facility] [address] [place] [address] Specialist Cardiovascular Disease 06/08/22 Gretchen Juan MD [address] [address] Surgeon Neurosurgery 02/13/23 Katherine Snow PA-C [address] [address] Specialist Neurosurgery 02/13/23 Per Leahy PA-C [address] [address] Specialist Neurosurgery 02/13/23 documented as of this encounter
--- OUTSIDE RECORDS SUMMARY | 2025-02-23 16:55 | XMS_ITS | Encounter Summary ---
Author Organization [facility] Address [address] [place] [address] Care Team Providers Care Insurance Risk Analyst Name Role Phone Mily Lawrence MD Primary Care Provider [phone] Trey Mueller MD Primary Care Provider Unavaila ble Mily Lawrence MD Primary Care Provider [phone] Ralf Gastelum MD Unavailable [phone] Gretchen Juan MD Unavailable [phone] Katherine Snow PA-C Unavailable [phone] Per Leahy PA-C Unavailable [phone] Encounter Details Date Type Department Care Team Description 04/07/2018 Telephone [facility] - [address] [phone] Frank Fry MD Social History Tobacco Use [...] 5:02 PM EDT Jeanne, please call patient [phone] (home) [phone] (work) The nerve testing was negative. This either means that she doesn't have nerve compression problem or it's too mild to show up on the testing at this point. Overall workup suggests more likely osteoarthritis rather than rheumatoid arthritis. I would suggest [id number] analgesic ointments and up to 3,000 mg [...] filedocumented in this encounter Care Teams Insurance Risk Analyst Relationship Specialty Start Date End Date Mily Lawrence MD PCP - General Internal Medicine 03/13/17 01/01/19 Trey Mueller MD PCP - General Internal Medicine 01/02/19 03/08/19 Mily Lawrence MD PCP - General Internal Medicine 03/09/19 Ralf Gastelum MD 300 [facility] [address] [place] [address] Specialist Cardiovascular Disease 06/08/22 Gretchen Juan MD 175 [facility] [address] [place] [address] Surgeon Neurosurgery 02/13/23 Katherine Snow PA-C 175 [facility] [address] [place] [address] Specialist Neurosurgery 02/13/23 Per Leahy PA-C 175 [facility] 300 [place] [address] Specialist Neurosurgery 02/13/23 documented as of this encounter
--- OUTSIDE RECORDS SUMMARY | 2025-02-23 16:55 | XMS_ITS | Encounter Summary ---
Author Organization [facility] Address [address] [place] [address] Care Team Providers Care Fruit Buying Grader Name Role Phone Mily Lawrence MD Primary Care Provider [phone] Ralf Gastelum MD Unavailable [phone] Gretchen Juan MD Unavailable [phone] Katherine Snow PA-C Unavailable [phone] Per Leahy PA-C Unavailable [phone] Reason for Visit * Reason Comments E-prescribe Rx Request Encounter Details Date Type Department Care Team Description 06/09/2019 [facility] Internal Medicine [address], [address] [place] [address] Mily Lawrence MD [address] [place] [phone] E-prescribe Rx Request Social History Tobacco [...] N/A Patients current insurance carrier is: Payor: [employer] FFS / Plan: [employer] / Product Type: MEDICAID RISK documented in this encounter Plan of Treatment Not on file documented as of this encounter Visit Diagnoses Not on filedocumented in this encounter Care Teams Fruit Buying Grader Relationship Specialty Start Date End Date Mily Lawrence MD PCP - General Internal Medicine 03/09/19 Ralf Gastelum MD [address] [facility] [address] [place] [address] Specialist Cardiovascular Disease 06/08/22 Gretchen Juan MD 175 [facility] 300 [place] [address] Surgeon Neurosurgery 02/13/23 Katherine Snow PA-C 175 [facility] 300 [place] [address] Specialist Neurosurgery 02/13/23 Per Leahy PA-C 175 [facility] 300 [place] [address] Specialist Neurosurgery 02/13/23 documented as of this encounter
--- OUTSIDE RECORDS SUMMARY | 2025-02-23 16:55 | XMS_ITS | Encounter Summary ---
Author Organization [facility] Address [address] [place] [address] Care Team Providers Care Service Delivery Management Consultant Name Role Phone Mily Lawrence MD Primary Care Provider Ralf Gastelum MD Unavailable [phone] Gretchen Juan MD Unavailable [phone] Katherine Snow PA-C Unavailable [phone] Per Leahy PA-C Unavailable [phone] Reason for Referral * EXTERNAL (Routine) - Authorized/Booked Specialty Diagnoses / Procedures Referred By Jonny breaux Referred To Contact Neurology Procedures REFERRAL TO NEUROLOGY Mily Lawrence MD [address] [place] [phone] Robi Loomis MD Referral ID Status Reason Start Date Expiration Date V isits Requested Visits Authorized SEE NOTE Authorized/B ooked 06/01/2019 09/03/2019 1 1 Reason for Visit * Reason Onset Date Comments other 05/29/2019 ? neuro referral Encounter Details Date Type Department Care Team Description 05/29/2019 Telephone Internal Medicine - [place] 175 [facility], [address] [place], [place] [id number] Mily Lawrence MD [address] [place] [phone] other (? neuro referral) Social History [...] team met patient yesterday to enroll in [facility]. She reports she has noticed in [...] neurology. Please advise. Thank you Alyce Vázquez aqua ammonia operator Manager with [facility] Edita Zaldivar @ 175 [facility] [phone] documented in this encounter Plan of Treatment Not on file documented as of this encounter Visit Diagnoses Not on filedocumented in this encounter Care Teams Service Delivery Management Consultant Relationship Specialty Start Date End Date Mily Lawrence MD PCP - General Internal Medicine 03/09/19 Ralf Gastelum MD 300 [facility] [address] [place] [address] Specialist Cardiovascular Disease 06/08/22 Gretchen Juan MD 175 [facility] 300 [place] [address] Surgeon Neurosurgery 02/13/23 Katherine Snow PA-C 175 [facility] 300 [place] [address] Specialist Neurosurgery 02/13/23 Per Leahy PA-C [address] [facility] 300 [place] [address] Specialist Neurosurgery 02/13/23 documented as of this encounter
--- OUTSIDE RECORDS SUMMARY | 2025-02-23 16:55 | XMS_ITS | Encounter Summary ---
Author Organization [facility] Address [address] [place] [address] Care Team Providers Care Casing Blower Name Role Phone Mily Lawrence MD Primary Care Provider [phone] Trey Mueller MD Primary Care Provider Unavaila ble Mily Lawrence MD Primary Care Provider [phone] Ralf Gastelum MD Unavailable [phone] Gretchen Jaun MD Unavailable [phone] Katherine Snow PA-C Unavailable [phone] Per Leahy PA-C Unavailable [phone] Encounter Details Date Type Department Care Team Description 08/27/2018 Dyeing Machine Feeder Report Medical Records [address] [place] [address] Marci Inman PA-C Social History Tobacco Use Types Packs/Day Years [...] [facility] [address] [place] [address] Specialist Cardiovascular Disease 06/08/22 Gretchen Juan MD [address] [address] Surgeon Neurosurgery 02/13/23 Katherine Snow PA-C [address] [address] Specialist Neurosurgery 02/13/23 Per Leahy PA-C [address] [address] Specialist Neurosurgery 02/13/23 documented as of this encounter
--- OUTSIDE RECORDS SUMMARY | 2025-02-23 16:55 | XMS_ITS | Encounter Summary ---
Author Organization [facility] Address [address] [place] [address] Care Team Providers Care Transplant Case Manager Name Role Phone Mily Lawrence MD Primary Care Provider [phone] Ralf Gastelum MD Unavailable [phone] Gretchen Juan MD Unavailable [phone] Katherine Snow PA-C Unavailable [phone] ePr Leahy PA-C Unavailable [phone] Encounter Details Date Type Department Care Team Description 08/25/2021 [facility] Medical Records [address] [place] [id number] Abstract, Provider Social History Tobacco Use Types [...] on filedocumented in this encounter Care Teams Transplant Case Manager Relationship Specialty Start Date End Date Mily Lawrence MD PCP - General Internal Medicine 03/09/19 Ralf Gastelum MD 300 [facility] [address] [place] [address] Specialist Cardiovascular Disease 06/08/22 Gretchen Juan MD 175 [facility] 300 [place] [address] Surgeon Neurosurgery 02/13/23 Katherine Snow PA-C 175 [facility] 300 [place] [address] Specialist Neurosurgery 02/13/23 Per Leahy PA-C 175 [facility] 300 [place] [address] Specialist Neurosurgery 02/13/23 documented as of this encounter
--- OUTSIDE RECORDS SUMMARY | 2025-02-23 16:55 | XMS_ITS | Encounter Summary ---
Author Organization [facility] Address [address] [place] [address] Care Team Providers Care Fsr Name Role Phone Mily Lawrence MD Primary Care Provider [phone] Trey Mueller MD Primary Care Provider Unavaila ble Mily Lawrence MD Primary Care Provider +[phone] Ralf Gastelum MD Unavailable [phone] Gretchen Juan MD Unavailable [phone] Katherine Snow PA-C Unavailable [phone] Per Leahy PA-C Unavailable [phone] Reason for Visit * Reason Onset Date Comments Form 11/07/2018 Encounter Details Date Type Department Care Team Description 11/07/2018 Telephone Internal Medicine - [address], [address] [place] [address] Mily Lawrence MD [address] [place] [phone] Form Social History Tobacco Use Types [...] on filedocumented in this encounter Care Teams Fsr Relationship Specialty Start Date End Date Mily Lawrence MD PCP - General Internal Medicine 03/13/17 01/01/19 Trey Mueller MD PCP - General Internal Medicine 01/02/19 03/08/19 Mily Lawrence MD PCP - General Internal Medicine 03/09/19 Ralf Gastelum MD 300 [facility] 154 [place] [address] Specialist Cardiovascular Disease 06/08/22 Gretchen Juan MD [address] [address] Surgeon Neurosurgery 02/13/23 Katherine Snow PA-C 175 [facility] 300 [place] [address] Specialist Neurosurgery 02/13/23 Per Leahy PA-C [address] [address] Specialist Neurosurgery 02/13/23 documented as of this encounter
--- OUTSIDE RECORDS SUMMARY | 2025-02-23 16:55 | XMS_ITS | Encounter Summary ---
Author Organization [facility] Address [address] [place] [address] Care Team Providers Care Stable Manager Name Role Phone Mily Lawrence MD Primary Care Provider +1 [phone] Ralf Gastelum MD Unavailable [phone] Gretchen Juan MD Unavailable [phone] Katherine Snow PA-C Unavailable [phone] Per Leahy PA-C Unavailable [phone] Reason for Visit * Reason Comments E-prescribe Rx Request Encounter Details Date Type Department Care Team Description 10/05/2021 Refill Internal Medicine - [address], [address] [place] [address] Mily Lawrence MD [address] [place] [phone] E-prescribe Rx Request Social History Tobacco [...] on filedocumented in this encounter Care Teams Stable Manager Relationship Specialty Start Date End Date Mily Lawrence MD PCP - General Internal Medicine 03/09/19 Ralf Gastelum MD 300 [facility] [address] [place] [address] Specialist Cardiovascular Disease 06/08/22 Gretchen Juan MD 175 [facility] 300 [place] [address] Surgeon Neurosurgery 02/13/23 Katherine Snow PA-C [address] [address] Specialist Neurosurgery 02/13/23 Per Leahy PA-C [address] [address] Specialist Neurosurgery 02/13/23 documented as of this encounter
--- OUTSIDE RECORDS SUMMARY | 2025-02-23 16:55 | XMS_ITS | Encounter Summary ---
Author Organization [facility] Address [address] [place] [address] Care Team Providers Care Circular Head Saw Operator Name Role Phone Mily Lawrence MD Primary Care Provider +1 [phone] Ralf Gastelum MD Unavailable [phone] Gretchen Juan MD Unavailable [phone] Katherine Snow PA-C Unavailable [phone] Per Leahy PA-C Unavailable [phone] Encounter Details Date Type Department Care Team Description 01/24/2023 Mushroom Cutter Report Medical Records [address] [place] [address] Evelio Smith Social History Tobacco Use Types [...] on filedocumented in this encounter Care Teams Circular Head Saw Operator Relationship Specialty Start Date End Date Mily Lawrence MD PCP - General Internal Medicine 03/09/19 Ralf Gastelum MD 300 [facility] [address] [place] [address] Specialist Cardiovascular Disease 06/08/22 Gretchen Juan MD 175 [facility] 300 [place] [address] Surgeon Neurosurgery 02/13/23 Katherine Snow PA-C 175 [facility] 300 [place] [address] Specialist Neurosurgery 02/13/23 Per Leahy PA-C 175 [facility] 300 [place] [address] Specialist Neurosurgery 02/13/23 documented as of this encounter
--- OUTSIDE RECORDS SUMMARY | 2025-02-23 16:55 | XMS_ITS | Continuity of Care Document ---
Author Organization [facility] Address [address] [place] [phone] Phone Care Team Providers Care Electronic Component Processor Name Role Phone Provider, [employer] Unavailable Unavailable Advance Directives Directive Yes / No Effective Date File Name No Information Encounters Encounter Description Practice Location Reason(s) For Visit Diagnoses Date Provider Providers Copied on Encounter [facility], [address] [facility], [place], [place], [id number], [place] tel:[phone] No Information Provider [employer]. . Family History [...]
--- OUTSIDE RECORDS SUMMARY | 2025-02-23 16:55 | XMS_ITS | Encounter Summary ---
Author Organization [facility] Address [address] [place] [address] Care Team Providers Care Ear Muff Assembler Name Role Phone Mily Lawrence MD Primary Care Provider [phone] Ralf Gastelum MD Unavailable [phone] Gretchen Juan MD Unavailable [phone] Katherine Snow PA-C Unavailable [phone] Per Leahy PA-C Unavailable [phone] Reason for Visit * Reason Onset Date Comments Menstrual Problems 07/21/2019 Encounter Details Date Type Department Care Team Description 07/21/2019 Telephone Internal Medicine - [address], [address] [place], [place] [id number] Mily Lawrence MD [address] [place] [phone] Menstrual Problems Social History Tobacco Use [...] 07/23/19. Please advise. Thank you Alyce Vázquez project manager process development Manager with [facility] @[address] [place] [address] [phone] documented in this encounter Plan of Treatment Not on file documented as of this encounter Visit Diagnoses Not on filedocumented in this encounter Care Teams Ear Muff Assembler Relationship Specialty Start Date End Date Mily Lawrence MD PCP - General Internal Medicine 03/09/19 Ralf Gastelum MD 300 [facility] [address] [place] [address] Specialist Cardiovascular Disease 06/08/22 Gretchen Juan MD 175 [facility] 300 [place] [address] Surgeon Neurosurgery 02/13/23 Katherine Snow PA-C [address] [address] Specialist Neurosurgery 02/13/23 Per Leahy PA-C 175 [facility] [address] [place] [address] Specialist Neurosurgery 02/13/23 documented as of this encounter
--- OUTSIDE RECORDS SUMMARY | 2025-02-23 16:55 | XMS_ITS | Encounter Summary ---
Author Organization [facility] Address [address] [place] [address] Care Team Providers Care Security Monitor Name Role Phone Mily Lawrence MD Primary Care Provider [phone] [phone] Ralf Gastelum MD Unavailable [phone] Gretchen Juan MD Unavailable [phone] Katherine Snow PA-C Unavailable [phone] Per Leahy PA-C Unavailable [phone] Encounter Details Date Type Department Care Team Description 09/28/2022 Orders Only Medical Records [address] [place] [address] Abstract, Provider Routine medical exam Social History [...] facility documented in this encounter Care Teams Security Monitor Relationship Specialty Start Date End Date Mily Lawrence MD PCP - General Internal Medicine 03/09/19 Ralf Gastelum MD 300 [facility] [address] [place] [address] Specialist Cardiovascular Disease 06/08/22 Gretchen Juan MD [address] [address] Surgeon Neurosurgery 02/13/23 Katherine Sonw PA-C 175 [facility] 300 [place] [address] Specialist Neurosurgery 02/13/23 Per Leahy PA-C [address] [address] Specialist Neurosurgery 02/13/23 documented as of this encounter
--- OUTSIDE RECORDS SUMMARY | 2025-02-23 16:55 | XMS_ITS | Encounter Summary ---
Author Organization [facility] Address [address] [place] [address] Care Team Providers Care Travel Ot Name Role Phone Mily Lawrence MD Primary Care Provider [phone] Ralf Gastelum MD Unavailable [phone] Gretchen Juan MD Unavailable [phone] Katherine Snow PA-C Unavailable [phone] Per Leahy PA-C Unavailable [phone] Reason for Visit * Reason Onset Date Comments TEST RESULTS 10/08/2019 Encounter Details Date Type Department Care Team Description 10/08/2019 Telephone Podiatry - [address] [id number] Yvonne Medina DPM TEST RESULTS Social History [...] performed: 09/30/19 Where was the test performed: [place] Who ordered this test?: Dr. Yvonne Medina [...] limb documented in this encounter Care Teams Travel Ot Relationship Specialty Start Date End Date Mily Lawrence MD PCP - General Internal Medicine 03/09/19 Ralf Gastelum MD 300 [facility] 154 [place] [address] Specialist Cardiovascular Disease 06/08/22 Gretchen Juan MD [address] [address] Surgeon Neurosurgery 02/13/23 Katherine Snow PA-C [address] [address] Specialist Neurosurgery 02/13/23 Per Leahy PA-C [address] [address] Specialist Neurosurgery 02/13/23 documented as of this encounter
--- OUTSIDE RECORDS SUMMARY | 2025-02-23 16:55 | XMS_ITS | Encounter Summary ---
Author Organization [facility] Address [address] [place] [address] Care Team Providers Care Crate Maker Name Role Phone Mily Lawrence MD Primary Care Provider [phone] Ralf Gastelum MD Unavailable [phone] Gretchen Juan MD Unavailable [phone] Katherine Snow PA-C Unavailable [phone] Per Leahy PA-C Unavailable [phone] Reason for Visit * Reason Comments E-prescribe Rx Request Encounter Details Date Type Department Care Team Description 06/15/2019 [facility] Internal Medicine [address], [address] [place] [address] Mily Lawrence MD [address] [place] [phone] E-prescribe Rx Request Social History Tobacco [...] N/A Patients current insurance carrier is: Payor: [employer] FFS / Plan: [employer] ALLIANCE / Product Type: MEDICAID RISK documented in this encounter Plan of Treatment Not on file documented as of this encounter Visit Diagnoses Not on filedocumented in this encounter Care Teams Crate Maker Relationship Specialty Start Date End Date Mily Lawrence MD PCP - General Internal Medicine 03/09/19 Ralf Gastelum MD [address] [place] [address] Specialist Cardiovascular Disease 06/08/22 Gretchen Juan MD 175 [facility] [address] [place] [address] Surgeon Neurosurgery 02/13/23 Katherine Snow PA-C 175 [facility] 300 [place] [address] Specialist Neurosurgery 02/13/23 Per Leahy PA-C 175 [facility] [address] [place] [address] Specialist Neurosurgery 02/13/23 documented as of this encounter
--- OUTSIDE RECORDS SUMMARY | 2025-02-23 16:55 | XMS_ITS | Encounter Summary ---
Author Organization [facility] Address [address] [place] [address] Care Team Providers Care Vehicle Assembly Inspector Name Role Phone Mily Lawrence MD Primary Care Provider Ralf Gastelum MD Unavailable [phone] Gretchen Juan MD Unavailable [phone] Katherine Snow PA-C Unavailable [phone] Per Leahy PA-C Unavailable [phone] Reason for Visit * Reason Onset Date Comments Medication Injection, Joint 07/27/2021 norma ohumeral injection @ [facility] on 08/09/21 for 1pm, arrive for 12:30pm to outpatient registration on Encounter Details Date Type Department Care Team Description 07/27/2021 Telephone [facility] [address] [address] Marci Bernardo PA-C [address] [id number] Medication Injection, Joint (glenohumeral injection @ [facility] on 08/09/21 for 1pm, arrive for 12:30pm [...] aware of her glenohumeral injection scheduled at [facility] on 08/09/21 at 1pm, with an arrivaltime of 12:30pm to outpatient registration located on the first floor of the hospital. documented in this encounter Plan of Treatment Not on file documented as of this encounter Visit Diagnoses Not on filedocumented in this encounter Care Teams Vehicle Assembly Inspector Relationship Specialty Start Date End Date Mily Lawrence MD PCP - General Internal Medicine 03/09/19 Ralf Gastelum MD 300 [facility] [address] [place] [address] Specialist Cardiovascular Disease 06/08/22 Gretchen Juan MD 175 [facility] 300 [place] [address] Surgeon Neurosurgery 02/13/23 Katherine Snow PA-C [address] [address] Specialist Neurosurgery 02/13/23 Per Leahy PA-C [address] [address] Specialist Neurosurgery 02/13/23 documented as of this encounter
--- OUTSIDE RECORDS SUMMARY | 2025-02-23 16:55 | XMS_ITS | Encounter Summary ---
Author Organization [facility] Address [address] [place] [address] Care Team Providers Care Chicken Cleaner Name Role Phone Mily Lawrence MD Primary Care Provider [phone] Ralf Gastelum MD Unavailable [phone] Gretchen Juan MD Unavailable [phone] Katherine Snow PA-C Unavailable [phone] Per Leahy PA-C Unavailable [phone] Encounter Details Date Type Department Care Team Description 08/18/2019 Test Engine Mechanic Report Medical Records [address] [place] [address] Gretchen Juan MD [address] [place] [address] [address] [place], [place] [id number] Social History Tobacco Use Types Packs/Day Years [...] on filedocumented in this encounter Care Teams Chicken Cleaner Relationship Specialty Start Date End Date Mily Lawrence MD PCP - General Internal Medicine 03/09/19 Ralf Gastelum MD 300 [facility] [address] [place] [address] Specialist Cardiovascular Disease 06/08/22 Gretchen Juan MD 175 [facility] 300 [place] [address] Surgeon Neurosurgery 02/13/23 Katherine Snow PA-C 175 [facility] 300 [place] [address] Specialist Neurosurgery 02/13/23 Per Leahy PA-C 175 [facility] 300 [place] [address] Specialist Neurosurgery 02/13/23 documented as of this encounter
--- OUTSIDE RECORDS SUMMARY | 2025-02-23 16:55 | XMS_ITS | Encounter Summary ---
Author Organization [facility] Address [address] [place] [address] Care Team Providers Care Yarn Mercerizer Operator Name Role Phone Mily Lawrence MD Primary Care Provider +1 [phone] Ralf Gastelum MD Unavailable [phone] Gretchen Juan MD Unavailable [phone] Katherine Snow PA-C Unavailable [phone] Per Leahy PA-C Unavailable [phone] Encounter Details Date Type Department Care Team Description 12/13/2022 Cable Installation Manager Report Medical Records [address] [place] [address] Evelio Smith Social History Tobacco Use Types [...] on filedocumented in this encounter Care Teams Yarn Mercerizer Operator Relationship Specialty Start Date End Date Mily Lawrence MD PCP - General Internal Medicine 03/09/19 Ralf Gastelum MD 300 [facility] [address] [place] [address] Specialist Cardiovascular Disease 06/08/22 Gretchen Juan MD 175 [facility] 300 [place] [address] Surgeon Neurosurgery 02/13/23 Katherine Snow PA-C 175 [facility] 300 [place] [address] Specialist Neurosurgery 02/13/23 Per Leahy PA-C 175 [facility] 300 [place] [address] Specialist Neurosurgery 02/13/23 documented as of this encounter
--- OUTSIDE RECORDS SUMMARY | 2025-02-23 16:55 | XMS_ITS | Encounter Summary ---
Author Organization [facility] Address [address] [place] [address] Care Team Providers Care Relationship Manager Name Role Phone Mily Lawrence MD Primary Care Provider +[phone] Ralf Gastelum MD Unavailable [phone] Gretchen Juan MD Unavailable [phone] Katherine Snow PA-C Unavailable [phone] Per Leahy PA-C Unavailable [phone] Reason for Visit * Reason Comments E-prescribe Rx Request Encounter Details Date Type Department Care Team Description 09/03/2019 [facility] Internal Medicine [address], [address] [place] [address] Mily Lawrence MD [address] [place] [phone] E-prescribe Rx Request Social History Tobacco [...] encounter Miscellaneous Notes * Telephone Encounter - Sapna Concepcion - 09/03/2019 11:37 AM EST Patient would like script to be: E-PRESCRIBED/FAXED TO PHARMACY WHEN WAS THE PATIENT'S LAST APPOINTMENT IN ADULT MEDICINE? 07/23/2019 WHEN WAS THE LAST TIME THE PATIENT SAW THEIR PCP? Same as above Does patient have an upcoming appointment? Yes 10/27/2019 (THE MEDICATION REQUESTED IS ON THE MED [...] N/A Patients current insurance carrier is: Payor: [employer] FFS / Plan: [employer] ALLIANCE / Product Type: MEDICAID RISK documented in this encounter Plan of Treatment Not on file documented as of this encounter Visit Diagnoses Not on filedocumented in this encounter Care Teams Relationship Manager Relationship Specialty Start Date End Date Mily Lawrence MD PCP - General Internal Medicine 03/09/19 Ralf Gastelum MD [address] [place] [address] Specialist Cardiovascular Disease 06/08/22 Gretchen Juan MD 175 [facility] 300 [place] [address] Surgeon Neurosurgery 02/13/23 Katherine Snow PA-C 175 [facility] 300 [place] [address] Specialist Neurosurgery 02/13/23 Per Leahy PA-C 175 [facility] 300 [place] [address] Specialist Neurosurgery 02/13/23 documented as of this encounter
--- OUTSIDE RECORDS SUMMARY | 2025-02-23 16:56 | XMS_ITS | Encounter Summary ---
Author Organization [facility] Address [address] [place] [address] Care Team Providers Care System Support Specialist Name Role Phone Mily Lawrence MD Primary Care Provider +[phone] Ralf Gastelum MD Unavailable [phone] Gretchen Juan MD Unavailable [phone] Katherine Snow PA-C Unavailable [phone] Per Leahy PA-C Unavailable [phone] Encounter Details Date Type Department Care Team Description 03/07/2020 Dicer Operator Report Medical Records [address] [place] [address] Evelio Smith Social History Tobacco Use Types [...] filedocumented in this encounter Care Teams System Support Specialist Relationship Specialty Start Date End Date Mily Lawrence MD PCP - General Internal Medicine 03/09/19 Ralf Gastelum MD [address] [facility] [address] [place] [address] Specialist Cardiovascular Disease 06/08/22 Gretchen Juan MD 175 [facility] 300 [place] [address] Surgeon Neurosurgery 02/13/23 Katherine Snow PA-C 175 [facility] 300 [place] [address] Specialist Neurosurgery 02/13/23 Per Leahy PA-C 175 [facility] 300 [place] [address] Specialist Neurosurgery 02/13/23 documented as of this encounter
--- OUTSIDE RECORDS SUMMARY | 2025-02-23 16:56 | XMS_ITS | Encounter Summary ---
Author Organization [facility] Address [address] [place] [address] Care Team Providers Care Editing Intern Name Role Phone Mily Lawrence MD Primary Care Provider +[phone] Ralf Gastelum MD Unavailable [phone] Gretchen Juan MD Unavailable [phone] Katherine Snow PA-C Unavailable [phone] Per Leahy PA-C Unavailable [phone] Encounter Details Date Type Department Care Team Description 06/20/2020 [facility] Medical Records [address] [place] [address] Abstract, Provider Social History Tobacco Use Types [...] on filedocumented in this encounter Care Teams Editing Intern Relationship Specialty Start Date End Date Mily Lawrence MD PCP - General Internal Medicine 03/09/19 Ralf Gastelum MD 300 [facility] [address] [place] [address] Specialist Cardiovascular Disease 06/08/22 Gretchen Juan MD 175 [facility] 300 [place] [address] Surgeon Neurosurgery 02/13/23 Katherine Snow PA-C 175 [facility] 300 [place] [address] Specialist Neurosurgery 02/13/23 Per Leahy PA-C 175 [facility] 300 [place] [address] Specialist Neurosurgery 02/13/23 documented as of this encounter
--- OUTSIDE RECORDS SUMMARY | 2025-02-23 16:56 | XMS_ITS | Encounter Summary ---
Author Organization [facility] Address [address] [place] [address] Care Team Providers Care Mechanic'S Assistant Name Role Phone Mily Lawrence MD Primary Care Provider +1 [phone] Ralf Gasteulm MD Unavailable [phone] Gretchen Juan MD Unavailable [phone] Katherine Snow PA-C Unavailable [phone] Per Leahy PA-C Unavailable [phone] Encounter Details Date Type Department Care Team Description 05/12/2019 Orders Only Medical Records [address] [place] [id number] Abstract, Provider Breast microcalcification, mammographic Social History [...] MAMMO INCL CAD BI (05/11/2019) Irish Snow MANAGER STYLIST MAMMOGRAPHY documented in this encounter Visit Diagnoses Diagnosis Breast microcalcification, mammographic Mammographic microcalcification documented in this encounter Care Teams Mechanic'S Assistant Relationship Specialty Start Date End Date Mily Lawrence MD PCP - General Internal Medicine 03/09/19 Ralf Gastelum MD 300 [facility] [address] [place] [address] Specialist Cardiovascular Disease 06/08/22 Gretchen Juan MD [address] [address] Surgeon Neurosurgery 02/13/23 Katherine Snow PA-C 175 [facility] 300 [place] [address] Specialist Neurosurgery 02/13/23 Per Leahy PA-C 175 [facility] 300 [place] [address] Specialist Neurosurgery 02/13/23 documented as of this encounter
--- OUTSIDE RECORDS SUMMARY | 2025-02-23 16:56 | XMS_ITS | Encounter Summary ---
Author Organization [facility] Address [address] [place] [address] Care Team Providers Care Film Cleaner Name Role Phone Mily Lawrence MD Primary Care Provider [phone] Reason for Referral * Imaging (Routine) - Pending Review Specialty Diagnoses / Procedures Referred By Contdhiraj t Referred To Contact Radiology Diagnoses Encounter for screening mammogram for malignant neoplasm of breast Procedures MG Mammo Digital Screening bilat Jessa Gandhi NP [address] [address] Phone: tel: fax: [address] [address] Phone: tel: Referral ID Status Reason Start Date Expiration Date V isits Requested Visits Authorized [id number] Pending Review 02/19/2025 02/19/2026 1 1 * Consultation (Routine) - Authorized Specialty Diagnoses / Procedures Referred By Jonny t Referred To Contact Obstetrics and Gynecology Diagnoses Cervical cancer screening Jessa Gandhi NP [address] [address] Phone: tel: fax: Aparna Edwards CNM [address] [place] [address] Phone: tel: fax: Referral ID Status Reason Start Date Expiration Date Visits Requested Visits Authorized [id number] Authorized Specialty Services Required 02/19/2025 02/19/2026 1 1 Scheduling Instructions Requesting Aparna Edwards. Reason for Visit * Reason Comments Follow-up Encounter Details Date Type Department Care Team (Latest Contact Info) Description 02/19/2025 2:30 PM EDT Office Visit Internal Medicine - [place] 175 [facility] [address] [place] [phone] Jessa Gandhi NP 175 [facility] [address] [place] [address] Primary hypertension (Primary Dx); Hearing difficulty of both ears; Hyperlipidemia, unspecified hyperlipidemia type; Seasonal allergies; Cervical cancer screening; Encounter for screening mammogram for malignant neoplasm of breast; Gastroesophageal reflux disease, unspecified whether esophagitis present; Insomnia, unspecified type; Depression with anxiety Social History Tobacco Use Types Packs/Day Years [...] care for your loved ones. For example, children's ministry director or elderly care for an older adult? [...] PM EST documented as of this encounter Last Filed Vital Signs Vital Sign Reading Time Taken Comments Blood Pressure 132/84 02/19/2025 2:32 PM EDT Pulse 77 02/19/2025 2:32 PM EDT Temperature 36.3 ??C (97.3 ??F) 02/19/2025 2:32 PM ED T Respiratory Rate - - Oxygen Saturation 98% 02/19/2025 2:32 PM EDT Inhaled Oxygen Concentration - - Weight 83.3 kg (183 lb 9.6 oz) 02/19/2025 2:32 P M EDT Height 162.6 cm (5' 4 ) 02/19/2025 2:32 PM EDT Body Mass Index 31.51 02/19/2025 2:32 PM EDT documented in this encounter Ordered Prescriptions Prescription Sig Dispense Quantity Refills Last Filled Start Date End Date cetirizine (ZyrTEC) 10 mg tabletIndications: Seasonal allergies Take 1 tablet (10 mg total) by mouth 1 (one) time each day. 30 each 2 02/19/2025 05/20/2025 documented in this encounter Progress Notes * Jessa Gandhi NP - 02/19/2025 2:30 PM EDT CHIEF COMPLAINT: Follow-up IDENTIFIER: Ange Montesinos is a 59 y.o. old female. HPI: Hypertension, insomnia, depression, low back pain,history of both knee replacement, obesity, GERD, obstructive sleep apnea on CPA - Ange is a 59-year-old female who presents today for follow-up visit. - Endorses insomnia. Takes tylenol PM, pain meds, trazodone. Completing a home sleep study tonight. - Had lumbar surgery in June 2024, still having numbness and tingling in the left thigh. Will follow-up with surgeon. - She met with nutrition and weight management. Lost about 27 lbs since 5 months ago. - Endorses allergies are flare ups. Endorses itchy eyes. - Seeing ENT in May 2025 for hearing test. ROS: See HPI. PAST MEDICAL HISTORY: Patient Active Problem List Diagnosis Date Noted Rotator cuff syndrome of left shoulder 12/28/2024 Arthritis of right glenohumeral joint 12/28/2024 Nontraumatic incomplete tear of right rotator cuff 12/28/2024 Chronic pain of both shoulders 12/28/2024 Status post total left knee replacement 10/06/2024 S/P lumbar fusion 10/06/2024 Acute bilateral low back pain without sciatica 10/06/2024 Other muscle spasm 10/06/2024 Diarrhea 08/07/2024 Epigastric pain 08/07/2024 Nausea and vomiting 08/07/2024 Primary osteoarthritis of left knee 02/19/2023 Neck pain 02/14/2023 Abnormal EKG 07/23/2022 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 01/09/2022 Brachial radiculitis 10/10/2021 Cervical post-laminectomy syndrome 10/10/2021 Degeneration of cervical intervertebral disc 10/10/2021 Displacement of lumbar intervertebral disc without myelopathy 10/10/2021 Lumbosacral radiculitis 10/10/2021 Occipital headache 10/10/2021 Primary osteoarthritis of both first carpometacarpal joints 05/16/2021 Chest pain 05/03/2021 Diastolic hypertension 05/03/2021 Post-thrombotic syndrome 04/05/2019 DVT (deep venous thrombosis) ([facility] V24, [facility] V28) 04/01/2019 Chronic back pain 07/04/2018 Degenerative joint disease of cervical spine 07/04/2018 Urinary incontinence 07/04/2018 Lumbar degenerative disc disease 01/30/2018 Primary osteoarthritis of both knees 01/30/2018 Sleep apnea 01/30/2018 Hyperlipidemia 12/07/2017 Breast microcalcification, mammographic 10/21/2017 Essential hypertension 03/14/2017 GERD (gastroesophageal reflux disease) 09/05/2016 Depression with anxiety 01/12/2016 Insomnia 06/09/2015 Vitamin D deficiency 02/15/2015 Past Surgical History: Procedure Laterality Date BACK SURGERY 2007 PROCEDURE:BACK SURGERY;COMMENT:c-spine BACK SURGERY 2018 PROCEDURE:BACK SURGERY;COMMENT:lumbar BREAST BIOPSY 10/08/2013 PROCEDURE: SC BX BREAST NEEDLE CORE W/O IMAGING GUIDANCE SPX; COMMENT: in [place],no evidence of malignancy COLONOSCOPY 2017 PROCEDURE: HISTORICAL COLONOSCOPY HAND SURGERY Bilateral 2021 PROCEDURE:HAND SURGERY;COMMENT:thumb surery with plates and pins HAND SURGERY Bilateral 1989 PROCEDURE: HISTORICAL HAND SURGERY; COMMENT: right tendo repair; left thumb x2; region with pins inplace LUMBAR FUSION N/A 07/16/2024 PROCEDURE:LUMBAR FUSION;COMMENT:Procedure: L3-4 FUSION SPINE LUMBAR - DLIF 1 INTERSPACE; Surgeon: Nathan Hayward MD; [facility] Service: Spine; Laterality: N/A; NECK SURGERY 2007 PROCEDURE: HISTORICAL NECK SURGERY; COMMENT: C-spine; arthrodesis OTHER SURGICAL HISTORY 09/2017 PROCEDURE: SC ARTHRD ANT INTERBODY MIN DSC LUMBAR OTHER SURGICAL HISTORY 1997 PROCEDURE: LAPAROSCOPY PROCEDURE NEC; COMMENT: for scar tissue TOTAL KNEE ARTHROPLASTY Bilateral 03/03/2024 PROCEDURE:TOTAL KNEE ARTHROPLASTY;COMMENT:LEFT TKA; RIGHT TKA MARCH 2019 TOTAL KNEE ARTHROPLASTY Right 02/03/2019 PROCEDURE: HISTORICAL TOTAL KNEE REPLACE TUBAL LIGATION 2007 PROCEDURE: HISTORICAL TUBAL LIGATION SOCIAL HISTORY: Social History Tobacco Use Smoking status: Never Smokeless tobacco: Never Substance Use Topics Alcohol use: Yes Alcohol/week: 6.0 - 8.0 standard drinks of alcohol FAMILY HISTORY: Family History Problem Relation Name Age of Onset Arthritis Mother Cancer Mother breast in 30s and 40s Hypertension Mother COPD Mother Kidney disease Mother Kidney failure Mother Kidney disease Father Drug abuse Father Arthritis Father Cancer Mother's Sister breast Diabetes Mother 04/2023 Breast cancer Mother 30.00 mother breast ca in her 30s and again in her 40s ESRD Mother Breast cancer Aunt maternal mat aunt breast ca 30s and again 40s Breast cancer Other cousin 57.00 Family Status Relation Name Status Mother Father Mat Aunt Aunt maternal in her 30 and early 40. Other cousin Alive No partnership data on file MEDICATIONS DISCONTINUED/REORDERED: There are no discontinued medications. ACTIVE MEDICATIONS: Outpatient Medications Marked as Taking for the 02/19/25 encounter (Office Visit) with Jessa Gandhi NP Medication Sig Dispense Refill acetaminophen (TYLENOL 8 HOUR) 650 mg 8 hr tablet Take 1 tablet (650 mg total) by mouth every 8 (eight) hours if needed. acetaminophen (TYLENOL) 500 mg tablet Take 2 tablets (1,000 mg total) by mouth 3 (three) times a day. atorvastatin (LIPITOR) 10 mg tablet Take 1 tablet (10 mg total) by mouth 1 (one) time each day. 90 tablet 2 back brace [facility] brace. Use when ambulating and for comfort Status post lumbar fusion Length of use: 99 1 each 0 celecoxib (CeleBREX) 200 mg capsule TAKE 1 CAPSULE BY MOUTH TWICE A DAY NEEDED FOR PAIN WITH FOOD AND STAY HYDRATED 60 capsule 3 cholecalciferol (VITAMIN D-3) 50 mcg (2,000 unit) capsule TAKE 1 CAPSULE BY MOUTH EVERY DAY 90 capsule 3 clotrimazole (LOTRIMIN) 1 % cream Apply to skin and toenails daily for 12 weeks cyclobenzaprine (FLEXERIL) 10 mg tablet Take 1 tablet (10 mg total) by mouth 2 (two) times a day. Daily-Michelle, with folic acid, 400 mcg tablet TAKE 1 TABLET BY MOUTH EVERY DAY 28 tablet 2 diclofenac (VOLTAREN) 1 % topical gel Apply 4 g topically 2 (two) times a day. gabapentin (NEURONTIN) 300 mg capsule Take 1 capsule (300 mg total) by mouth 3 (three) times a day. galcanezumab-gnlm (Emgality Pen) 120 mg/mL injection pen Inject under the skin. hydroCHLOROthiazide 12.5 mg tablet Take 1 tablet (12.5 mg total) by mouth 1 (one) time each day. 30each 5 ketoconazole (NIZORAL) 2 % shampoo USE ONCE DAILY A FACE WASH lisinopriL (PRINIVIL,ZESTRIL) 30 mg tablet Take 1 tablet (30 mg total) by mouth 1 (one) time each day. 90 tablet 2 melatonin 3 mg tablet TAKE 1 TABLET BY MOUTH EVERYDAY AT BEDTIME 28 tablet 2 metoprolol tartrate (LOPRESSOR) 50 mg tablet Take 1 tablet (50 mg total) by mouth 2 (two) times a day. 180 tablet 3 multivitamin (MULTIPLE VITAMINS ORAL) Take 1 tablet by mouth 1 (one) time each day. nystatin (MYCOSTATIN) ointment Apply topically to affected areas twice a day for 10 days omeprazole (PriLOSEC) [address] capsule TAKE 1 CAPSULE BY MOUTH EVERY DAY 28 capsule 2 onabotulinumtoxinA (Botox) 200 unit injection ondansetron (ZOFRAN) 4 mg tablet Take 1 tablet (4 mg total) by mouth every 8 (eight) hours if needed for nausea. oxyBUTYnin XL (DITROPAN-XL) 10 mg 24 hr tablet Take 1 tablet (10 mg total) by mouth 1 (one) time each day. for 360 days polyethylene glycol (MIRALAX) 17 gram packet Take 17 g by mouth 1 (one) time each day. sertraline (ZOLOFT) 100 mg tablet TAKE 1 TABLET BY MOUTH EVERY DAY 84 tablet 2 thiamine 100 mg tablet Take 1 tablet (100 mg total) by mouth 1 (one) time each day. 210 tablet 1 traMADoL (ULTRAM) 50 mg tablet Take 1 tablet (50 mg total) by mouth every 6 (six) hours if needed for moderate pain or severe pain. traZODone (DESYREL) 50 mg tablet TAKE 1 TABLET BY MOUTH EVERYDAY AT BEDTIME 90 tablet 1 ubrogepant (Ubrelvy) 100 mg tablet Vitamin B-6 250 mg tablet TAKE 1 TABLET BY MOUTH EVERY DAY 28 tablet 2 ALLERGIES: Allergies Allergen Reactions Sulfate Ion Hives Adhesive Tape-Silicones Rash Paper tape Sulfa (Sulfonamide Antibiotics) Hives PHYSICAL EXAM: Visit Vitals BP 132/84 (BP Location: Left arm, Patient Position: Sitting, BP Cuff Size: Adult) Pulse 77 Temp 36.3 ??C (97.3 ??F) (Temporal) Ht 1.626 m (64 ) Wt 83.3 kg (183 lb 9.6 oz) SpO2 98% BMI 31.51 kg/m?? Smoking Status Never BSA 1.89 m?? Physical Exam Constitutional: Appearance: Normal appearance. Cardiovascular: Rate and Rhythm: Normal rate and regular rhythm. Pulses: Normal pulses. Heart sounds: Normal heart sounds. Pulmonary: Effort: Pulmonary effort is normal. Breath sounds: Normal breath sounds. Neurological: General: No focal deficit present. Mental Status: She is alert and oriented to person, place, and time. Psychiatric: Mood and Affect: Mood normal. Behavior: Behavior normal. LABS/IMAGING: Office Visit on 02/09/2025 Component Date Value Ref Range Status Ventricular Rate ECG 02/09/2025 57 BPM Final Atrial Rate 02/09/2025 57 BPM Final P-R Interval 02/09/2025 132 ms Final QRS Duration 02/09/2025 86 ms Final Q-T Interval 02/09/2025 388 ms Final QTc 02/09/2025 377 ms Final P Wave [place] 02/09/2025 23 degrees Final R [place] 02/09/2025 47 degrees Final T [place] 02/09/2025 44 degrees Final ECG Interpretation 02/09/2025 Final Value:Sinus bradycardia Otherwise normal ECG When compared with ECG of 14-APR-2024 18:52, Vent. rate has decreased BY 62 BPM Confirmed by MD Nirav, [facility]er ([id number]) on 02/09/2025 3:35:19 PM IMPRESSION: 1. Primary hypertension 2. Hearing difficulty of both ears 3. Hyperlipidemia, unspecified hyperlipidemia type 4. Seasonal allergies 5. Cervical cancer screening 6. Encounter for screening mammogram for malignant neoplasm of breast 7. Gastroesophageal reflux disease, unspecified whether esophagitis present 8. Insomnia, unspecified type 9. Depression with anxiety PLAN: 1. Primary hypertension Complete blood count Comprehensive metabolic panel Thyroid stimulating hormone 2. Hearing difficulty of both ears 3. Hyperlipidemia, unspecified hyperlipidemia type Lipid panel with reflex to direct LDL 4. Seasonal allergies cetirizine (ZyrTEC) 10 mg tablet 5. Cervical cancer screening Ambulatory referral to Obstetrics / Gynecology 6. Encounter for screening mammogram for malignant neoplasm of breast MG Mammo Digital Screening bilat 7. Gastroesophageal reflux disease, unspecified whether esophagitis present 8. Insomnia, unspecified type 9. Depression with anxiety 1. Hypertension--continue metoprolol 50 mg daily, lisinopril 30 mg daily, hydrochlorothiazide 12.5 mg daily I encouraged the patient to take hydrochlorothiazide 25 mg if the blood pressure is still high. Will check CBC, CMP, TSH. 2. Bilateral hearing difficulty: Scheduled to see ENT in May 2025. 3. Hyperlipidemia: Will check lipid panel. 4. Seasonal allergies: Takes Zyrtec as needed. 5. Cervical cancer screening: Referred to gynecology. 6. Breast cancer screening: Mammogram ordered. 7. GERD--continue omeprazole 8. Insomnia--continue trazodone. Will be completing home sleep study tonight. 9. Depression and anxiety--continue Zoloft, patient has behavior health on board Recommend follow-up in 6 months. Advised the patient to call me if any problems. Patient understands the plan. Patient is in agreement with the plan. Jessa Gandhi NP on 02/19/2025 at 4:25 PM EDT documented in this encounter Plan of Treatment Upcoming Encounters Date Type Department Care Team (Late st Contact Info) Description 03/03/2025 3:30 PM EDT Office Visit Orthopedic Surgery [place] [address] [phone] Brian Ferrari MD [address] [address] 03/04/2025 3:30 PM EDT Office Visit Orthopedic Surgery [facility] [address] [phone] Brian Ferrari MD [address] [address] 03/08/2025 3:00 PM EDT [facility] [address] [place] [phone] 03/12/2025 3:30 PM EDT Office Visit Orthopedic Surgery [facility] 160 175 [facility] [address] [place] [address] Aida White PA 175 [facility] [address] [place] [address] 05/25/2025 9:40 AM EDT Office Visit Obstetrics & Gynecology - [facility] [address] [place] [phone] Aparna Edwards, CNM [address] [place] [address] Scheduled Orders Name Type Priority Associated Diagnoses Orde r Schedule MG Mammo Digital Screening bilat Imaging Routine Encounter for screening mammogram for malignant neoplasm of breast 1 Occurrences starting 02/19/2025 until 02/19/2026 Scheduled Referrals Name Type Priority Associated Diagnoses Order Schedule Ambulatory referral to Obstetrics / Gynecology Outpatient Referral Routine Cervical cancer screening 1 Occurrences starting 02/19/2025 until 02/19/2026 documented as of this encounter Results * Thyroid stimulating hormone (02/19/2025 3:19 PM EDT) TSH 0.62 0.40 - 4.00 mcIU/mL LAB CHEMISTRY METHOD 02/19/2025 5:41 PM EDT [facility] Blood Venous blood specimen / Unknown Venipuncture / Unknown 02/19/2025 3:19 PM EDT 02/19/2025 3:40 PM EDT us Jessa Gandhi NP LAB BLOOD ORDERABLES Final Resul t [facility] [address] [place] [address], [place] [phone] * Comprehensive metabolic panel (02/19/2025 3:19 PM EDT) Sodium 139 133 - 145 mmol/L LAB CHEMISTRY METHOD 02/19/2025 4:33 PM [facility] Potassium 4.5 3.5 - 5.5 mmol/L LAB CHEMISTRY METHOD 02/19/2025 4:33 PM [facility] Chloride 106 96 - 110 mmol/L LAB CHEMISTRY METHOD 02/19/2025 4:33 PM [facility] CO2 30 21 - 32 mmol/L LAB CHEMISTRY METHOD 02/19/2025 4:33 PM [facility] Anion Gap 3 3 - 11 LAB CHEMISTRY METHOD 02/19/2025 4:33 PM [facility] Glucose 86 70 - 100 mg/dL LAB CHEMISTRY METHOD 02/19/2025 4:33 PM [facility] BUN 13 5 - 25 mg/dL LAB CHEMISTRY METHOD 02/19/2025 4:33 PM [facility] Creatinine 0.91 0.50 - 1.10 mg/dL LAB CHEMISTRY METHOD 02/19/2025 4:33 PM [facility] eGFR 74 >=60 mL/min/1. 73m2 LAB CHEMISTRY METHOD 02/19/2025 4:33 PM [facility] Comment:Calculation based on the??Chronic Kidney Disease Epidemiology Collaboration (CKD-EPI) equation refit??without adjustment for race. BUN/Creatinine Ratio 14.3 LAB CHEMISTRY METHOD 02/19/2025 4:33 PM [facility] Calcium 9.4 8.5 - 10.5 mg/dL LAB CHEMISTRY METHOD 02/19/2025 4:33 PM [facility] AST (SGOT) 27 10 - 42 unit/L LAB CHEMISTRY METHOD 02/19/2025 4:33 PM [facility] ALT (SGPT) 49 10 - 60 unit/L LAB CHEMISTRY METHOD 02/19/2025 4:33 PM EDT [facility] Alkaline Phosphatase 79 42 - 121 unit/L LAB CHEMISTRY METHOD 02/19/2025 4:33 PM EDT [facility] Total Protein 7.7 6.0 - 8.0 g/dL LAB CHEMISTRY METHOD 02/19/2025 4:33 PM EDT [facility] Albumin 4.1 3.2 - 5.0 g/dL LAB CHEMISTRY METHOD 02/19/2025 4:33 PM EDT [facility] Total Bilirubin 0.8 0.0 - 1.4 mg/dL LAB CHEMISTRY METHOD 02/19/2025 4:33 PM EDT [facility] Blood Venous blood specimen / Unknown Venipuncture / Unknown 02/19/2025 3:19 PM EDT 02/19/2025 3:40 PM EDT us Jessa Gandhi NP LAB BLOOD ORDERABLES Final Resul t [facility] [address] [place] [address], [place] [phone] * (ABNORMAL) Complete blood count (02/19/2025 3:19 PM EDT) WBC 5.2 4.8 - 10.8 K/mcL LAB HEMETOLOGY METHOD 02/19/2025 3:49 PM EDT [facility] RBC 4.60 3.80 - 4.80 M/mcL LAB HEMETOLOGY METHOD 02/19/2025 3:49 PM EDT [facility] Hemoglobin 13.4 11.5 - 16.0 g/dL LAB HEMETOLOGY METHOD 02/19/2025 3:49 PM EDT [facility] Hematocrit 41.8 35.0 - 47.0 % LAB HEMETOLOGY METHOD 02/19/2025 3:49 PM EDT [facility] MCV 90.7 79.0 - 98.0 FL LAB HEMETOLOGY METHOD 02/19/2025 3:49 PM EDT [facility] MCH 29.1 27.0 - 32.0 pcg LAB HEMETOLOGY METHOD 02/19/2025 3:49 PM EDT [facility] MCHC 32.1 32.0 - 37.0 g/dL LAB HEMETOLOGY METHOD 02/19/2025 3:49 PM EDT [facility] RDW 15.2(H) 11.0 - 15.0 % LAB HEMETOLOGY METHOD 02/19/2025 3:49 PM EDT [facility] Platelets 260 130 - 400 K/mcL LAB HEMETOLOGY METHOD 02/19/2025 3:49 PM EDT [facility] MPV 10.2 7.0 - 11.0 FL LAB HEMETOLOGY METHOD 02/19/2025 3:49 PM EDT [facility] NRBC 0.0 <1.0 % LAB HEMETOLOGY METHOD 02/19/2025 3:49 PM EDT [facility] NRBC Absolute 0.00 <0.10 K/mcL LAB HEMETOLOGY METHOD 02/19/2025 3:49 PM EDT [facility] Blood Venous blood specimen / Unknown Venipuncture / Unknown 02/19/2025 3:19 PM EDT 02/19/2025 3:40 PM EDT us Jessa Gandhi NP LAB BLOOD ORDERABLES Final Resul t [facility] [address] [place] [address], [place] [phone] * (ABNORMAL) Lipid panel with reflex to direct LDL (02/19/2025 3:19 PM EDT) Cholesterol 238(H) 0 - 200 mg/dL LAB CHEMISTRY METHOD 02/19/2025 4:33 PM EDT [facility] Triglycerides 91 0 - 150 mg/dL LAB CHEMISTRY METHOD 02/19/2025 4:33 PM EDT [facility] HDL 54 >=40 mg/dL LAB CHEMISTRY METHOD 02/19/2025 4:33 PM EDT [facility] LDL Calculated 166(H) 0 - 100 mg/dL LAB CHEMISTRY METHOD 02/19/2025 4:33 PM EDT [facility] VLDL Cholesterol Jose Luis 18.2 mg/dL LAB CHEMISTRY METHOD 02/19/2025 4:33 PM EDT [facility] Non HDL Chol. (LDL+VLDL) 184(H) <145 mg/dL LAB CHEMISTRY METHOD 02/19/2025 4:33 PM EDT [facility] Chol/HDL Ratio 4.4 0.0 - 4.4 LAB CHEMISTRY METHOD 02/19/2025 4:33 PM EDT [facility] Blood Venous blood specimen / Unknown Venipuncture / Unknown 02/19/2025 3:19 PM EDT 02/19/2025 3:40 PM EDT us Jessa Gandhi ART TRACER LAB BLOOD ORDERABLES Final Resul t [facility] [address] [place] [address], [place] [phone] documented in this encounter Visit Diagnoses Diagnosis Primary hypertension- Primary Unspecified essential hypertension Hearing difficulty of both ears Hyperlipidemia, unspecified hyperlipidemia type Seasonal allergies Allergic rhinitis, cause unspecified Cervical cancer screening Screening for malignant neoplasm of the cervix Encounter for screening mammogram for malignant neoplasm of breast Gastroesophageal reflux disease, unspecified whether esophagitis present Insomnia, unspecified type Depression with anxiety Dysthymic disorder documented in this encounter Additional Health Concerns Assessment Noted Time PHQ-9 Depression Total Score: 11 12/22/ 025 11:06 AM EST documented as of this encounter Care Teams Film Cleaner Relationship Specialty Start Date End Date Mily Lawrence MD [address] [phone] PCP - General Internal Medicine 09/24/16 documented as of this encounter
--- OUTSIDE RECORDS SUMMARY | 2025-02-23 16:56 | XMS_ITS | Encounter Summary ---
Author Organization [facility] Address [address] [place] [address] Care Team Providers Care Insurance Risk Analyst Name Role Phone Mily Lawrence MD Primary Care Provider [phone] Trey Mueller MD Primary Care Provider Unavaila ble Mily Lawrence MD Primary Care Provider [phone] Ralf Gastelum MD Unavailable [phone] Gretchen Juan MD Unavailable [phone] Katherine Snow PA-C Unavailable [phone] Per Leahy PA-C Unavailable [phone] Encounter Details Date Type Department Care Team Description 12/23/2018 Orders Only General Surgery [address] [place] [address] Irish Snow NP Abnormal finding on imaging [...] cancer documented in this encounter Care Teams Insurance Risk Analyst Relationship Specialty Start Date End Date Mily Lawrence MD PCP - General Internal Medicine 03/13/17 01/01/19 Trey Mueller MD PCP - General Internal Medicine 01/02/19 03/08/19 Mily Lawrence MD PCP - General Internal Medicine 03/09/19 Ralf Gastelum MD 300 [facility] [address] [place] [address] Specialist Cardiovascular Disease 06/08/22 Gretchen Juan MD 175 [facility] [address] [place] [address] Surgeon Neurosurgery 02/13/23 Katherine Snow PA-C 175 [facility] [address] [place] [address] Specialist Neurosurgery 02/13/23 Per Leahy PA-C 175 [facility] [address] [place] [address] Specialist Neurosurgery 02/13/23 documented as of this encounter
--- OUTSIDE RECORDS SUMMARY | 2025-02-23 16:56 | XMS_ITS | Encounter Summary ---
Author Organization [facility] Address [address] [place] [address] Care Team Providers Care Pot Room Tapper Name Role Phone Mily Lawrence MD Primary Care Provider [phone] Trey Mueller MD Primary Care Provider Unavaila ble Mily Lawrence MD Primary Care Provider [phone] Ralf Gastelum MD Unavailable [phone] Gretchen Juan MD Unavailable [phone] Katherine Snow PA-C Unavailable [phone] Per Leahy PA-C Unavailable [phone] Reason for Visit * Reason Onset Date Comments refill request 12/12/2018 Encounter Details Date Type Department Care Team Description 12/12/2018 Telephone Internal Medicine - [address], [address] [place] [address] Mily Lawrence MD [address] [place] [phone] refill request Social History Tobacco Use [...] N/A Patients current insurance carrier is: Payor: [employer] FFS / Plan: [employer] / Product Type: MEDICAID RISK documented in this encounter Plan of Treatment Not on file documented as of this encounter Visit Diagnoses Not on filedocumented in this encounter Care Teams Pot Room Tapper Relationship Specialty Start Date End Date Mily Lawrence MD PCP - General Internal Medicine 03/13/17 01/01/19 Trey Mueller MD PCP - General Internal Medicine 01/02/19 03/08/19 Mily Lawrence MD PCP - General Internal Medicine 03/09/19 Ralf Gastelum MD [address] [facility] [address] [place] [address] Specialist Cardiovascular Disease 06/08/22 Gretchen Juan MD 175 [facility] 300 [place] [address] Surgeon Neurosurgery 02/13/23 Katherine Snow PA-C 175 [facility] 300 [place] [address] Specialist Neurosurgery 02/13/23 Per Leahy PA-C 175 [facility] 300 [place] [address] Specialist Neurosurgery 02/13/23 documented as of this encounter
--- OUTSIDE RECORDS SUMMARY | 2025-02-23 16:56 | XMS_ITS | Data Portability ---
Author Organization [facility] Address [address] [facility] [address] [place] [address] Care Team Providers Care General House Worker Name Role Phone MICHAEL HOOKER Primary Care Provider [facility]) OTHER Assessment Encounter Date Assessment Date [...] like a referral to Dr. Hayward in [place], [place] I recommend physical therapy with Anderson Murcia at the in [place], [place]. She will follow up in six [...] booked for the same. She needs a sales route driver helper on the day of the procedure. Insurance [...] booked for the same. She needs a sales route driver helper on the day of the procedure. Insurance approval needed. I have encouraged to? ? ?start physical therapy and discussed the importance of core strengthening. She si on [employer] and will call back after consulting with [...] 2022 023 HAYDEN Hayward MD, [address], [place], [address], 05:00:52 Procedures None recorded. Surgeries None recorded. Imaging None recorded. Medication Orders None recorded. Patient TargetsNo targets recorded. Patient Instructions Encounter Date Encounter Id Patient Instructions Last Modified By Organization Details Last Modified Time 01/24/2023 [id number] She was advised against bed rest lasting longer than four days and to continue activities as tolerated. [email or web address] Not available 01/30/2023 16:21:29 04/01/2023 [id number] physical therapy* HAYDEN Not available 10/13/2023 05:00:58 She was advised against bed rest lasting longer than four days and to continue activities as tolerated. [email or web address] Not available 04/05/2023 11:18:39 12/02/2023 [id number] She was advised against bed rest lasting longer than four days and to continue activities as tolerated. [email or web address] Not available 12/02/2023 14:52:52 03/27/2024 [id number] She was advised against bed rest lasting [...] ney spine No observ ation record ed. [facility] [address] [place], [address], 01/24/2023 13:46:21 02/09/20 23 02/06/2023 MRI, cervi ney spine , w/o contr ast No observ ation record ed. [facility] [address] [place], [address], 02/11/2023 15:20:32 Result Notes None recorded. Problems Name Problem SNOMED Code Status Onset Date Resolution Date Notes Provider Name and Address Organization Details Recorded Time Brachial radiculitis [id number] Lauryn grady MD [address] , [address], [place], [address], [place] [facility] 6 08:51:25 Displacement of lumbar intervertebral disc without myelopathy [id number] Lauryn grady MD [address] , [address], [facility] [place], [address], [place] [facility] 6 08:55:36 Lumbosacral radiculitis [id number] Lauryn grady MD [address] , [address], [facility] [place], [address], [place] [facility] 6 08:55:36 Degeneration of cervical intervertebral disc 56347557 Lauryn grady MD [address] , [address], [facility] [place], [address], [place] [facility] 6 08:51:25 Cervical post-laminecto my syndrome 384506566 Active Evelio grady MD [address] , [address], [facility] [place], [address], [place] [facility] 6 08:51:25 Occipital headache 330820 Active Evelio grady MD [address] , [address], [facility] [place], [address], [place] [facility] 6 08:51:25 Problem Notes None recorded. Procedures Surgical History Date Name Laterality Status Provider Name and Address Organization Details Recorded Time 01/09/20 24 Lumbar Epidural steroid injection under fluoroscopic guidance completed Evelio Smith MD [address] , [address], [place], [address], [place] [facility] 01/09/2024 11:18:14 12/26/19 23 Lumbar Epidural steroid injection under fluoroscopic guidance completed Evelio Smith MD [address] , [address], [place], [address], [place] [facility] 12/25/2022 13:26:44 07/08/20 19 Greater Occipital Nerve Block(s) completed Evelio Smith MD [address] , [address], [place], [address], [place] [facility] 07/09/2019 14:01:34 01/07/20 19 Cervical Epidural Steroid injection under fluroscopic guidance completed Evelio Smith MD [address] , [address], [place], [address], [place] [facility] 01/07/2019 10:50:11 04/24/20 17 Lumbar Epidural steroid injection under fluoroscopic guidance completed Evelio Smith MD [address] , [address], [place], [address], [place] [facility] 05/02/2017 10:32:28 10/21/19 17 Lumbar Fusion completed Elsa Lainez [place] [facility] 12/18/2018 13:40:37 10/02/20 16 Lumbar Epidural steroid injection under fluoroscopic guidance completed Evelio Smith MD [address] , [address], [place], [address], [place] [facility] 10/02/2016 14:32:08 04/04/20 16 Lumbar Epidural steroid injection under fluoroscopic guidance completed Evelio Smith MD [address] , [address], [place], [address], [place] [facility] 04/04/2016 11:07:10 [...] LastModified Time 12/25/2022 XR, cervical spine completed [facility] [address] [place] [address], [address], 01/24/2023 13:46:21 02/06/2023 MRI, cervical spine, w/o contrast completed [facility] [address] [place] [address], [address], 02/11/2023 15:20:32 Procedure Notes None recorded. Medical Equipment None Reported. Allergies Allergen ID Allergen Name Allergen Category Reaction Reaction Severity Criticality Documentation Date Start Date Code Code System Note Provider Name and Address Organization Details Recorded Time 41848 Substance with sulfonami de structure and antibacte rial mechanism of action (substanc e) medicatio n hives Not available Not available 02/27/2016 38851 3914 SNOMED Elsajoey paris [place] [facility] [...] ar syringe TO BE ADMINISTE RED BY [place] T FOR IMMUNIZAT ION 12/18 completed Not [...] 98 % 98 % 8 35.2 kg/m2 72805.4 4 g 165 mm[Hg] 77 mm[Hg] [facility] 3 13:23:02 Date Recorded Body height Pain severity - 0-10 verbal numeric rating [Score] - Reported Heart rate Oxygen saturation Oxygen saturation in Arterial blood by Pulse oximetry Body mass index (BMI) Body weight Systolic blood pressure Diastolic blood pressure Provider Name and Address Organization Details Last Updated DateTime 4 162.56 cm 8 75 /min 96 % 96 % 34.3 kg/m2 59651.4 7 g 150 mm[Hg] 90 mm[Hg] Deana robb [place] [facility] 4 [...] % 10 138 mm[Hg] 95 mm[Hg] Irish Shields [place] [...] /min 97 % 97 % 34.3 kg/m2 25411.4 7 g 10 144 mm[Hg] 91 mm[Hg] Evelio grady MD [facility] , [address], [place], [address], [place] [facility] 4 10:28:41 Social History Question Answer Notes LastModified by Organizat ion Details LastModified Time Tobacco Smoking Status Never Smoker Not Available [employer] 08/05/2020 03:16:12 What Is Your Level Of Alcohol Consumption? Moderate [id number] Information not available 08/05/2020 Are You Currently Employed? No Disability [email or web address] Information not available 11/23/2021 Which Illicit Or Recreational Drugs Have You Used? No [id number] Information not available 08/05/2020 Education [employer] Information not available 02/27/2016 Live Alone Or With Others? Alone Information not available 02/27/2016 Marital Status Informatio n not available 02/27/2016 What Was The Date Of Your Most Recent Tobacco Screening? 01/31/2019 [id number] Information not available 08/05/2020 Sex: Unknown Functional [...] SNOMED-CT Code Diagnosis ICD10 Code Diagnosis Note [id number] Evelio Smith MD PAIN OFFICE [address] [place] [address] 02/27/2016 14:19:46 02/28/2016 08:47:29 Displacement of lumbar intervertebral disc without myelopathy 27006915 M51.26 Lumbosacra l radiculitis 58601502 M54.17 Brachial radiculitis 278 41051 M54.12 Cervical post-laminectomy syndrome 111223350 M96.1 Degenerati on of cervical intervertebral disc 90791500 M50.30 Occipital headache 57710 7 R51 18234 Evelio Smith MD PAIN OFFICE [address] [place] [address] 03/20/2016 08:42:32 03/20/2016 10:30:41 Displacement of lumbar intervertebral disc without myelopathy 99329023 M51.26 Lumbosacra l radiculitis 22148710 M54.17 94104 Evelio Smith MD PAIN OFFICE [address] [place] [address] 04/04/2016 10:15:22 04/04/2016 11:15:33 Displacement of lumbar intervertebral disc without myelopathy 23185066 M51.26 Lumbosacra l radiculitis 19609439 M54.17 04201 Evelio Smith MD PAIN OFFICE [address] [place] [address] 05/10/2016 11:47:50 05/15/2016 08:55:57 Displacement of lumbar intervertebral disc without myelopathy 60403575 M51.26 Lumbosacra l radiculitis 35521001 M54.17 13184 Evelio Smith MD PAIN OFFICE [address] [place] [address] 09/03/2016 10:14:59 09/20/2016 08:51:29 Lumbosacral radiculitis 04332928 M54.17 Displaceme nt of lumbar intervertebral disc without myelopathy 29291413 M51.26 86877 Evelio Smith MD PAIN OFFICE [address] [place] [address] 10/02/2016 13:29:26 10/03/2016 14:29:14 Displacement of lumbar intervertebral disc without myelopathy 41777868 M51.26 Lumbosacra l radiculitis 22696863 M54.17 59976 Evelio Smith MD PAIN OFFICE [address] [place] [address] 03/27/2017 13:22:06 03/28/2017 16:32:03 Cervical radiculopathy 51428622 M54.12 Degenerati on of cervical intervertebral disc 48930951 M50.30 Muscle pain 73537937 M79 .1 Displaceme nt of lumbar intervertebral disc without myelopathy 76078651 M51.26 Lumbosacra l radiculitis 90161771 M54.17 94112 Evelio Smith MD PAIN OFFICE [address] [place] [address] 04/24/2017 13:30:47 05/02/2017 13:43:27 Cervical post-laminectomy syndrome 261737015 M96.1 Cervical radiculopathy 91539981 M54.12 Displaceme nt of lumbar intervertebral disc without myelopathy 45870751 M51.26 Lumbosacra l radiculitis 96540862 M54.17 64896 Evelio Smith MD PAIN OFFICE [address] [place] [address] 05/16/2017 11:40:03 05/17/2017 11:19:26 Brachial radiculitis 74209467 M54.12 Degenerati on of cervical intervertebral disc 02422271 M50.30 Cervical post-laminectomy syndrome 719736285 M96.1 Occipital headache 30130 7 R51 57545 Evelio Smith MD PAIN OFFICE [address] [facility] [place] [address] 12/18/2018 13:31:38 12/18/2018 16:14:01 Brachial radiculitis 59712722 M54.12 Degenerati on of cervical intervertebral disc 69489238 M50.30 Cervical post-laminectomy syndrome 194351944 M96.1 Occipital headache 82247 7 R51 69802 Evelio Smith MD [facility] PAIN OFFICE [address] [facility] [place] [address] 01/06/2019 08:42:42 01/07/2019 10:53:06 Brachial radiculitis 59413693 M54.12 Degenerati on of cervical intervertebral disc 79602209 M50.30 Cervical post-laminectomy syndrome 496270387 M96.1 Occipital headache 33180 7 R51 77788 Evelio Smith MD PAIN OFFICE [address] [facility] [place] [address] 01/28/2019 14:04:46 01/31/2019 10:24:31 Brachial radiculitis 86266884 M54.12 Degenerati on of cervical intervertebral disc 16309970 M50.30 Cervical post-laminectomy syndrome 183701930 M96.1 Occipital headache 63305 7 R51 50453 Evelio Smith MD PAIN OFFICE [address] [address] 06/09/2019 14:32:10 06/26/2019 15:58:13 Occipital headache 106010 R51 Degenerati on of cervical intervertebral disc 15996153 M50.30 Cervical post-laminectomy syndrome 477083246 M96.1 Brachial radiculitis 278 95402 M54.12 84550 Evelio Smith MD [facility] PAIN OFFICE [address] [place] [address] 07/08/2019 15:29:45 07/09/2019 14:03:49 Occipital headache 384374 R51 Cervical post-laminectomy syndrome 563880494 M96.1 Degenerati on of cervical intervertebral disc 36745801 M50.30 Brachial radiculitis 278 34798 M54.12 35024 Evelio Smith MD [facility] PAIN OFFICE [address] [place] [address] 08/24/2019 13:24:13 08/25/2019 11:25:36 Occipital headache 820762 R51 Degenerati on of cervical intervertebral disc 17369952 M50.30 Cervical post-laminectomy syndrome 124844755 M96.1 Brachial radiculitis 278 56021 M54.12 99394 Evelio Smith MD [facility] PAIN OFFICE [address] [place] [address] 03/07/2020 13:03:14 03/07/2020 14:34:46 Occipital headache 472136 R51 Degenerati on of cervical intervertebral disc 67001619 M50.30 Cervical post-laminectomy syndrome 702466386 M96.1 Brachial radiculitis 278 28954 M54.12 23125 Evelio Smith MD [facility] PAIN OFFICE [address] [place] [address] 11/23/2021 13:01:22 11/23/2021 13:27:11 Displacement of lumbar intervertebral disc without myelopathy 40177282 M51.26 Lumbosacra l radiculitis 31083439 M54.17 Brachial radiculitis 278 81895 M54.12 Cervical post-laminectomy syndrome 241428426 M96.1 Degenerati on of cervical intervertebral disc 82964398 M50.30 Occipital headache 26777 7 R51.9 88287 Evelio Smith MD [facility] PAIN OFFICE [address] [place] [address] 09/12/2022 08:14:50 09/12/2022 15:42:09 Displacement of lumbar intervertebral disc without myelopathy 54021648 M51.26 Lumbosacra l radiculitis 83140702 M54.17 Brachial radiculitis 278 00327 M54.12 Cervical post-laminectomy syndrome 572322104 M96.1 Degenerati on of cervical intervertebral disc 04123163 M50.30 Occipital headache 01841 7 R51.9 14702 Evelio Smith MD [facility] PAIN OFFICE [address] [place] [address] 12/06/2022 14:08:50 12/13/2022 14:02:45 Displacement of lumbar intervertebral disc without myelopathy 15681709 M51.26 Lumbosacra l radiculitis 22181567 M54.17 Brachial radiculitis 278 12642 M54.12 Cervical post-laminectomy syndrome 148860411 M96.1 Degenerati on of cervical intervertebral disc 56344020 M50.30 Occipital headache 72127 7 R51.9 59825 Evelio Smith MD PAIN OFFICE [address] [place] [address] 12/25/2022 11:32:27 12/25/2022 13:59:32 Displacement of lumbar intervertebral disc without myelopathy 49165741 M51.26 Lumbosacra l radiculitis 80907342 M54.17 Brachial radiculitis 278 42592 M54.12 Cervical post-laminectomy syndrome 551020465 M96.1 Degenerati on of cervical intervertebral disc 50756486 M50.30 Occipital headache 01534 7 R51.9 29200 Evelio Smith MD PAIN OFFICE [address] [place] [address] 01/24/2023 13:09:55 01/31/2023 14:49:17 Brachial radiculitis 32985298 M54.12 Degenerati on of cervical intervertebral disc 32931585 M50.30 Cervical post-laminectomy syndrome 702322051 M96.1 Occipital headache 04409 7 R51.9 39745 Evelio Smith MD PAIN OFFICE [address] [place] [address] 04/01/2023 13:14:13 04/05/2023 12:19:21 Lumbosacral radiculitis 87724645 M54.17 Brachial radiculitis 278 43903 M54.12 Degenerati on of cervical intervertebral disc 48697958 M50.30 Cervical post-laminectomy syndrome 002506530 M96.1 Occipital headache 01824 7 R51.9 84388 Evelio Smith MD PAIN OFFICE [address] [place] [address] 12/02/2023 14:06:57 12/02/2023 14:57:45 Lumbosacral radiculitis 94054329 M54.17 Displaceme nt of lumbar intervertebral disc without myelopathy 46932605 M51.26 Brachial radiculitis 278 56032 M54.12 Cervical post-laminectomy syndrome 446858436 M96.1 Degenerati on of cervical intervertebral disc 32942959 M50.30 Occipital headache 46486 7 R51.9 04677 Evelio Smith MD PAIN OFFICE [address] [place] [address] 01/09/2024 10:01:40 01/09/2024 15:01:59 Displacement of lumbar intervertebral disc without myelopathy 94741669 M51.26 Lumbosacra l radiculitis 80730543 M54.17 Brachial radiculitis 278 93001 M54.12 Cervical post-laminectomy syndrome 091316940 M96.1 Degenerati on of cervical intervertebral disc 16291260 M50.30 Occipital headache 82698 7 R51.9 93789 Evelio Smith MD PAIN OFFICE [address] [place] [address] 03/27/2024 10:21:43 03/31/2024 16:07:49 Displacement of lumbar intervertebral disc without myelopathy 60453653 M51.26 Lumbosacra l radiculitis 53739662 M54.17 Brachial radiculitis 278 93141 M54.12 Cervical post-laminectomy syndrome 410001233 M96.1 Degenerati on of cervical intervertebral disc 71450346 M50.30 Occipital headache 18909 7 R51.9 Health Concerns Section Related Observation LastModified by Organization Detai ls LastModified Time None Recorded Concern Status LastModified by Organization Details LastModified Time None Recorded Advance Directives Directive None Recorded Payers Encounter Date Sequence Insurance Name Policy Number Policy Mojica Covered Member ID Mojica Member ID Guarantor Name 01/24/2023 2 [facility] [employer] - DOS PRIOR TO 2023 (MEDICARE REPLACEMENT/ADV ANTAGE - PPO) Ange Montesinos [id number] 04/01/2023 1 [facility] [employer] [employer] - DOS ON OR AFTER 2023 - ONE CARE (MEDICARE REPLACEMENT/ADV ANTAGE - HMO) Ange Montesinos [id number] 12/02/2023 1 [facility] [employer] - DOS ON OR AFTER 2023 - ONE CARE (MEDICARE REPLACEMENT/ADV ANTAGE - HMO) Ange Montesinos [id number] 01/09/2024 1 [facility] [employer] - DOS ON OR AFTER 2023 - ONE CARE (MEDICARE REPLACEMENT/ADV ANTAGE - HMO) Ange Montesinos [id number] 03/27/2024 1 [facility] [employer] - DOS ON OR AFTER 2023 - ONE CARE (MEDICARE REPLACEMENT/ADV ANTAGE - HMO) Ange Montesinos [id number] Notes Date Note Type Note Provider Name [...] or bowel incontinence. 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 She has weakness in her arms and legs . Evelio Smith MD [address] , [address], [place], [address], [facility] 04/05/2023 12:20:51 12/02/2023 text/html She states she h as been having pain since 1534-0742. She is having an exacerbation of pain [...] [facility] [place] . She has done physical therapy and had an exacerbation of her pain.She has seen a neurosurgeon in [place], [place] . She wants to wait as she is planning on a knee replacement. She is also in grief as she has lost her mother last year. Evelio Smith MD [address] , [address], [place], [address], [facility] Pain Management 12/04/2023 16:33:41 01/09/2024 text/html She is here for a lumbar epidural steroid injection under fluoroscopic guidance. Evelio Smith MD [address] , [address], [place], [address], [facility] Management 01/09/2024 15:09:18 03/27/2024 text/html She states she h as been having pain since 1453-0888. She is having an exacerbation of pain [...] doing an exercise program in the in [place], [place] . She has done physical therapy and had an exacerbation of her pain.She has seen a neurosurgeon in [place], [place] . She is S/P knee replacement on 03/03/[address] Segundo and is on eliquis. Evelio Smith MD [address] [place] [address] , [address], [place], [address], [facility] Pain Management 03/31/2024 16:06:56 OBGyn Episode No OBEpisode recorded.
--- OUTSIDE RECORDS SUMMARY | 2025-02-23 16:56 | XMS_ITS | Encounter Summary ---
Author Organization [facility] Address [address] [place] [address] Care Team Providers Care Tours Captain Name Role Phone Trey Mueller MD Primary Care Provider Unavaila Mily Mayen MD Primary Care Provider [phone] Ralf Gastelum MD Unavailable [phone] Gretchen Juan MD Unavailable [phone] Katherine Snow PA-C Unavailable [phone] Per Leahy PA-C Unavailable [phone] Encounter Details Date Type Department Care Team Description 02/12/2019 SNF discharge summary Medical Records [address] [place] [address] Abstract, Provider Social History Tobacco Use Types [...] on filedocumented in this encounter Care Teams Tours Captain Relationship Specialty Start Date End Date Trey Mueller MD PCP - General Internal Medicine 01/02/19 03/08/19 Mily Lawrence MD PCP - General Internal Medicine 03/09/19 Ralf Gastelum MD [address] [facility] [address] [place] [address] Specialist Cardiovascular Disease 06/08/22 Gretchen Juan MD 175 [facility] [address] [place] [address] Surgeon Neurosurgery 02/13/23 Katherine Snow PA-C [address] [facility] [address] [place] [address] Specialist Neurosurgery 02/13/23 Per Leahy PA-C 175 [facility] [address] [place] [address] Specialist Neurosurgery 02/13/23 documented as of this encounter
--- OUTSIDE RECORDS SUMMARY | 2025-02-23 16:56 | XMS_ITS | Encounter Summary ---
Author Organization [facility] [place] Address [address] [place] [address] Care Team Providers Care Development Specialist Name Role Phone Mily Lawrence MD Primary Care Provider [phone] Ralf Gastelum MD Unavailable [phone] Gretchen Juan MD Unavailable [phone] Katherine Snow PA-C Unavailable [phone] Per Leahy PA-C Unavailable [phone] Encounter Details Date Type Department Care Team Description 11/24/2019 Head Inspector Report Medical Records [address] [place] [id number] Camilla Lopez MD Social History Tobacco Use [...] filedocumented in this encounter Care Teams Development Specialist Relationship Specialty Start Date End Date Mily Lawrence MD PCP - General Internal Medicine 03/09/19 Ralf Gastelum MD 300 [facility] [address] [place] [address] Specialist Cardiovascular Disease 06/08/22 Gretchen Juan MD 175 [facility] 300 [place] [address] Surgeon Neurosurgery 02/13/23 Katherine Snow PA-C 175 [facility] 300 [place] [address] Specialist Neurosurgery 02/13/23 Per Leahy PA-C 175 [facility] 300 [place] [address] Specialist Neurosurgery 02/13/23 documented as of this encounter
--- OUTSIDE RECORDS SUMMARY | 2025-02-23 16:56 | XMS_ITS | Encounter Summary ---
Author Organization [facility] Address [address] [place] [address] Care Team Providers Care Public Information Officer Name Role Phone Mily Lawrence MD Primary Care Provider [phone] Ralf Gastelum MD Unavailable [phone] Gretchen Juan MD Unavailable [phone] Katherine Snow PA-C Unavailable [phone] Per Leahy PA-C Unavailable [phone] Reason for Visit * Reason Comments E-prescribe Rx Request Encounter Details Date Type Department Care Team Description [facility] - [address], [address] [place] [address] Mily Lawrence MD [address] [place] [phone] E-prescribe Rx Request Social History Tobacco [...] N/A Patients current insurance carrier is: Payor: [employer] FFS / Plan: [employer] / Product Type: MEDICAID RISK documented in this encounter Plan of Treatment Not on file documented as of this encounter Visit Diagnoses Not on filedocumented in this encounter Care Teams Public Information Officer Relationship Specialty Start Date End Date Mily Lawrence MD PCP - General Internal Medicine 03/09/19 Ralf Gastelum MD 300 [facility] [address] [place] [address] Specialist Cardiovascular Disease 06/08/22 Gretchen Juan MD 175 [facility] 300 [place] [address] Surgeon Neurosurgery 02/13/23 Katherine Snow PA-C [address] [address] Specialist Neurosurgery 02/13/23 Per Leahy PA-C [address] [address] Specialist Neurosurgery 02/13/23 documented as of this encounter
--- OUTSIDE RECORDS SUMMARY | 2025-02-23 16:56 | XMS_ITS | Encounter Summary ---
Author Organization [facility] Address [address] [place] [address] Care Team Providers Care Floor Installation Mechanic Name Role Phone Trey Mueller MD Primary Care Provider Unavaila ble Mily Lawrence MD Primary Care Provider [phone] Ralf Gastelum MD Unavailable [phone] Gretchen Juan MD Unavailable [phone] Katherine Snow PA-C Unavailable [phone] Per Leahy PA-C Unavailable [phone] Reason for Visit * Reason Onset Date Comments DME Request 02/16/2019 Encounter Details Date Type Department Care Team Description 02/16/2019 Telephone Internal Medicine - [address], [address] [place] [address] Trey Mueller MD DME Request Social History [...] in [place] d/t no available appts at [facility]. D/T Total knee surgery surgery patient is having issues with urinary incontinence. She is concernedabout falling trying to barnes to the bathroom. Would you consider writing a rx for urinary incontinence pads? Thank you Alyce Vázquez feed miller Manager with [facility] [employer] @ [facility] [id number] documented in this encounter Plan of Treatment Not on file documented as of this encounter Visit Diagnoses Diagnosis Mixed stress and urge urinary incontinence- Primary Mixed incontinence urge and stress (male)(female) documented in this encounter Care Teams Floor Installation Mechanic Relationship Specialty Start Date End Date Trey Mueller MD PCP - General Internal Medicine 01/02/19 03/08/19 Mily Lawrence MD PCP - General Internal Medicine 03/09/19 Ralf Gastelum MD [address] [place] [address] Specialist Cardiovascular Disease 06/08/22 Gretchen Juan MD [address] [address] Surgeon Neurosurgery 02/13/23 Katherine Snow PA-C [address] [address] Specialist Neurosurgery 02/13/23 Per Leahy PA-C [address] [address] Specialist Neurosurgery 02/13/23 documented as of this encounter
--- OUTSIDE RECORDS SUMMARY | 2025-02-23 16:56 | XMS_ITS | Encounter Summary ---
Author Organization [facility] Address [address] [place] [address] Care Team Providers Care Aircraft Engine Mechanic Supervisor Name Role Phone Trey Mueller MD Primary Care Provider Unavaila ble Mily Lawrence MD Primary Care Provider [phone] Ralf Gastelum MD Unavailable [phone] Gretchen Juan MD Unavailable [phone] Katherine Snow PA-C Unavailable [phone] Per Leahy PA-C Unavailable [phone] Encounter Details Date Type Department Care Team Description 01/26/2019 Window/Distribution Clerk Report Medical Records [address] [place] [address] Magdi Daniel MD [address] [place] [address] [place] [phone] Social History Tobacco Use Types Packs/Day Years [...] filedocumented in this encounter Care Teams Aircraft Engine Mechanic Supervisor Relationship Specialty Start Date End Date Trey Mueller MD PCP - General Internal Medicine 01/02/19 03/08/19 Mily Lawrence MD PCP - General Internal Medicine 03/09/19 Ralf Gastelum MD 300 [facility] [address] [place] [address] Specialist Cardiovascular Disease 06/08/22 Gretchen Juan MD 175 [facility] 300 [place] [address] Surgeon Neurosurgery 02/13/23 Katherine Snow PA-C 175 [facility] 300 [place] [address] Specialist Neurosurgery 02/13/23 Per Leahy PA-C 175 [facility] 300 [place] [address] Specialist Neurosurgery 02/13/23 documented as of this encounter
--- OUTSIDE RECORDS SUMMARY | 2025-02-23 16:56 | XMS_ITS | Encounter Summary ---
Author Organization [facility] Address [address] [place] [address] Care Team Providers Care Hoop Puncher Name Role Phone Mily Lawrence MD Primary Care Provider [phone] Trey Mueller MD Primary Care Provider Unavaila ble Mily Lawrence MD Primary Care Provider [phone] Ralf Gastelum MD Unavailable [phone] Gretchen Juan MD Unavailable [phone] Katherine Snow PA-C Unavailable [phone] Per Leahy PA-C Unavailable [phone] Encounter Details Date Type Department Care Team Description 10/18/2017 Blade Filer Report Medical Records [address] [place] [address] Abstract, Provider Social History Tobacco Use Types [...] filedocumented in this encounter Care Teams Hoop Puncher Relationship Specialty Start Date End Date Mily Lawrence MD PCP - General Internal Medicine 03/13/17 01/01/19 Trey Mueller MD PCP - General Internal Medicine 01/02/19 03/08/19 Mily Lawrence MD PCP - General Internal Medicine 03/09/19 Ralf Gastelum MD [address] [address] Specialist Cardiovascular Disease 06/08/22 Gretchen Juan MD [address] [address] Surgeon Neurosurgery 02/13/23 Katherine Snow PA-C [address] [address] Specialist Neurosurgery 02/13/23 Per Leahy PA-C [address] [address] Specialist Neurosurgery 02/13/23 documented as of this encounter
--- OUTSIDE RECORDS SUMMARY | 2025-02-23 16:56 | XMS_ITS | Encounter Summary ---
Author Organization [facility] Address [address] [place] [address] Care Team Providers Care Aircraft Power Plant Assembler Name Role Phone Mily Lawrence MD Primary Care Provider [phone] Trey Mueller MD Primary Care Provider Unavaila ble Mily Lawrence MD Primary Care Provider [phone] Ralf Gastelum MD Unavailable [phone] Gretchen Juan MD Unavailable [phone] Katherine Snow PA-C Unavailable [phone] Per Leahy PA-C Unavailable [phone] Encounter Details Date Type Department Care Team Description 12/18/2018 Release of Information Medical Records [address] [place] [address] Abstract, Provider Social History Tobacco Use Types [...] filedocumented in this encounter Care Teams Aircraft Power Plant Assembler Relationship Specialty Start Date End Date Mily Lawrence MD PCP - General Internal Medicine 03/13/17 01/01/19 Trey Mueller MD PCP - General Internal Medicine 01/02/19 03/08/19 Mily Lawrence MD PCP - General Internal Medicine 03/09/19 Ralf Gastelum MD 300 [facility] 154 [place] [address] Specialist Cardiovascular Disease 06/08/22 Gretchen Juan MD [address] [address] Surgeon Neurosurgery 02/13/23 Katherine Snow PA-C [address] [address] Specialist Neurosurgery 02/13/23 Per Leahy PA-C [address] [address] Specialist Neurosurgery 02/13/23 documented as of this encounter
--- OUTSIDE RECORDS SUMMARY | 2025-02-23 16:56 | XMS_ITS | Encounter Summary ---
Author Organization [facility] Address [address] [place] [address] Care Team Providers Care Community Health Educator Name Role Phone Mily Lawrence MD Primary Care Provider [phone] Ralf Gastelum MD Unavailable [phone] Gretchen Juan MD Unavailable [phone] Katherine Snow PA-C Unavailable [phone] Per Leahy PA-C Unavailable [phone] Encounter Details Date Type Department Care Team Description 03/16/2020 Telephone Adult [address] [id number] Mily Lawrence MD [address] [place] [phone] Social History Tobacco Use Types Packs/Day [...] filedocumented in this encounter Care Teams Community Health Educator Relationship Specialty Start Date End Date Mily Lawrence MD PCP - General Internal Medicine 03/09/19 Ralf Gastelum MD 300 [facility] [address] [place] [address] Specialist Cardiovascular Disease 06/08/22 Gretchen Juan MD 175 [facility] 300 [place] [address] Surgeon Neurosurgery 02/13/23 Katherine Snow PA-C 175 [facility] 300 [place] [address] Specialist Neurosurgery 02/13/23 Per Leahy PA-C 175 [facility] 300 [place] [address] Specialist Neurosurgery 02/13/23 documented as of this encounter
--- OUTSIDE RECORDS SUMMARY | 2025-02-23 16:56 | XMS_ITS | Encounter Summary ---
Author Organization [facility] Address [address] [place] [address] Care Team Providers Care Sql Report Writer Name Role Phone Mily Lawrence MD Primary Care Provider [phone] Ralf Gastelum MD Unavailable [phone] Gretchen Juan MD Unavailable [phone] Katherine Snow PA-C Unavailable [phone] Per Leahy PA-C Unavailable [phone] Encounter Details Date Type Department Care Team Description 11/13/2019 SCAN Medical Records [address] [place] [address] Eran Alfaro MD Social History Tobacco Use [...] filedocumented in this encounter Care Teams Sql Report Writer Relationship Specialty Start Date End Date Mily Lawrence MD PCP - General Internal Medicine 03/09/19 Ralf Gastelum MD 300 [facility] [address] [place] [address] Specialist Cardiovascular Disease 06/08/22 Gretchen Juan MD 175 [facility] 300 [place] [address] Surgeon Neurosurgery 02/13/23 Katherine Snow PA-C 175 [facility] 300 [place] [address] Specialist Neurosurgery 02/13/23 Per Leahy PA-C 175 [facility] 300 [place] [address] Specialist Neurosurgery 02/13/23 documented as of this encounter
--- OUTSIDE RECORDS SUMMARY | 2025-02-23 16:56 | XMS_ITS | Clinical Summary ---
Author Organization [facility] Building Address [address] [place] [address] Phone Care Team Providers Care Lay Out Carpenter Name Role Phone Michael Lawrence MD Primary Care Provider [phone] Allergies Active Allergy Reactions Criticality Noted Date Comments Adhesive Tape-Silicones Rash 01/04/2021 Paper tape Sulfa (Sulfonamide Antibiotics) Hives 05/2015 Sulfate Ion Hives Medium 03/14/2017 Medications multivitamin (MULTIPLE VITAMINS ORAL) Take 1 tablet by mouth 1 (one) time each day. 4 Active polyethylene glycol (MIRALAX) 17 gram packet Take 17 g by mouth 1 (one) time each day. 1 Active ubrogepant (Ubrelvy) 100 mg tablet 4 Active acetaminophen (TYLENOL) 500 mg tablet Take 2 tablets (1,000 mg total) by mouth 3 (three) times a day. Active acetaminophen (TYLENOL 8 HOUR) 650 mg 8 hr tablet Take 1 tablet (650 mg total) by mouth every 8 (eight) hours if needed. Active clotrimazole (LOTRIMIN) 1 % cream Apply to skin and toenails daily for 12 weeks 4 Active cyclobenzaprine (FLEXERIL) 10 mg tablet Take 1 tablet (10 mg total) by mouth 2 (two) times a day. 4 Active diclofenac (VOLTAREN) 1 % topical gel Apply 4 g topically 2 (two) times a day. 2 Active gabapentin (NEURONTIN) 300 mg capsule Take 1 capsule (300 mg total) by mouth 3 (three) times a day. 4 Active galcanezumab-gn lm (Emgality Pen) 120 mg/mL injection pen Inject under the skin. Active ketoconazole (NIZORAL) 2 % shampoo USE ONCE DAILY A FACE WASH Active nystatin (MYCOSTATIN) ointment Apply topically to affected areas twice a day for 10 days 4 05/07/20 25 Active onabotulinumtox Darlene (Botox) 200 unit injection Activ e ondansetron (ZOFRAN) 4 mg tablet Take 1 tablet (4 mg total) by mouth every 8 (eight) hours if needed for nausea. 2 Active oxyBUTYnin XL (DITROPAN-XL) 10 mg 24 hr tablet Take 1 tablet (10 mg total) by mouth 1 (one) time each day. for 360 days 4 03/21/20 25 Active traMADoL (ULTRAM) 50 mg tablet Take 1 tablet (50 mg total) by mouth every 6 (six) hours if needed for moderate pain or severe pain. 4 Active back brace miscIndications :S/P lumbar fusion LSO brace. Use when ambulating and for comfort Status post lumbar fusion Length of use: 99 1 each 4 Active metoprolol tartrate (LOPRESSOR) 50 mg tablet Take 1 tablet (50 mg total) by mouth 2 (two) times a day. 180 tablet 3 4 Active lisinopriL (PRINIVIL,ZESTR IL) 30 mg tablet Take 1 tablet (30 mg total) by mouth 1 (one) time each day. 90 tablet 2 4 Active hydroCHLOROthia zide 12.5 mg tablet Take 1 tablet (12.5 mg total) by mouth 1 (one) time each day. 30 each 5 4 03/23/20 25 Active atorvastatin (LIPITOR) 10 mg tablet Take 1 tablet (10 mg total) by mouth 1 (one) time each day. 90 tablet 2 4 Active traZODone (DESYREL) 50 mg tablet TAKE 1 TABLET BY MOUTH EVERYDAY AT BEDTIME 90 tablet 1 5 Active cholecalciferol (VITAMIN D-3) 50 mcg (2,000 unit) capsule TAKE 1 CAPSULE BY MOUTH EVERY DAY 90 capsule 3 5 Active sertraline (ZOLOFT) 100 mg tablet TAKE 1 TABLET BY MOUTH EVERY DAY 84 tablet 2 5 Active thiamine 100 mg tablet Take 1 tablet (100 mg total) by mouth 1 (one) time each day. 210 tablet 1 5 Active omeprazole (PriLOSEC) [address] capsule TAKE 1 CAPSULE BY MOUTH EVERY DAY 28 capsule 2 5 Active Daily-Michelle, with folic acid, 400 mcg tablet TAKE 1 TABLET BY MOUTH EVERY DAY 28 tablet 2 5 Active Vitamin B-6 250 mg tablet TAKE 1 TABLET BY MOUTH EVERY DAY 28 tablet 2 5 Active melatonin 3 mg tablet TAKE 1 TABLET BY MOUTH EVERYDAY AT BEDTIME 28 tablet 2 5 Active celecoxib (CeleBREX) 200 mg capsuleIndicati ons:Presence of left artificial knee joint TAKE 1 CAPSULE BY MOUTH TWICE A DAY NEEDED FOR PAIN WITH FOOD AND STAY HYDRATED 60 capsule 3 5 Active cetirizine (ZyrTEC) 10 mg tabletIndicatio ns:Seasonal allergies Take 1 tablet (10 mg total) by mouth 1 (one) time each day. 30 each 2 5 05/20/20 25 Active Active Problems Problem Noted Date Diagnosed Date Rotator cuff syndrome of left shoulder 5 Arthritis of right glenohumeral joint 12/28/2024 Nontraumatic [...] on an as-needed basis. Abnormal EKG 07/23/2022 Assessment & Plan (02/09/2025 3:34 PM EDT): Orders: ECG 12 lead Degenerative arthritis of me tacarpophalangeal joint of [...] Post-thrombotic syndrome 04/05/2019 DVT (deep venous thrombosis) (CMS/HCC V24, CMS/H CC V28) 04/01/2019 Overview (08/07/2024): 02/2019 on Xarelto Chronic back pain 07/04/2018 Degenerative joint disease of cervical spine Urinary incontinence 07/04/2018 Lumbar degenerative disc disease 01/30/2018 Overview (08/07/2024): Last Assessment & Plan: Ms. Sung is about 12 days status post L3-4 DLIF with anterior spinal instrumentation performed by Dr. Hayward at [facility] in [place]. This the surgery, she has been a patient in rehab at [address] [place] [address]. While there, she is participating in physical [...] Encounters Date Type Department Care Team Description 02/19/2025 2:30 PM EDT Office Visit Internal Medicine - [place] 175 [facility] [address] [place] [phone] Jessa Gandhi NP Primary hypertension (Primary Dx); Hearing difficulty of both ears; Hyperlipidemia, unspecified hyperlipidemia type; Seasonal allergies; Cervical cancer screening; Encounter for screening mammogram for malignant neoplasm of breast; Gastroesophageal reflux disease, unspecified whether esophagitis present; Insomnia, unspecified type; Depression with anxiety 02/09/2025 2:30 PM EDT Office Visit [facility] [address] [facility] 154 [place] [phone] Ralf Gastelum MD Abnormal EKG (Primary Dx) 02/01/2025 Telephone Internal Medicine - [place] 175 [facility] 200 [place] [address] Michael Lawrence MD 01/04/2025 4:00 PM EDT Office Visit Orthopedic Surgery [facility] 175 [facility] 140 [place] [phone] Marci Bernardo PA Trigger finger of right thumb (Primary Dx); Trigger ring finger of right hand 12/30/2024 3:00 PM EDT Office Visit Orthopedic Surgery [facility] 160 175 [facility] 160 [place] [phone] Aida White PA Chronic pain of both shoulders (Primary Dx); Nontraumatic incomplete tear of right rotator cuff; Arthritis of right glenohumeral joint; Rotator cuff syndrome of left shoulder 12/22/[address] [facility] 160 175 [facility] 160 [place] [phone] Aida White PA 12/21/[address] [facility] 160 175 [facility] 160 [place] [address] Aida White PA 12/17/[address] [facility] 160 175 [facility] 160 [place] [phone] Aida White PA from Last 3 Months Immunizations Name Administration Dates Next Due Hepatitis B (Nvrflrv-K-Vtesu , Recombivax HB-Adult) 19yo and older 10/27/2019,05/26/2019,04/22/2019 [...] 1 INTERSPACE; Surgeon: Nathan Hayward MD; Location: [facility] Service: Spine; Laterality: N/A; NECK SURGERY 2007 PROCEDURE: HISTORICAL NECK SURGERY; COMMENT: C-spine; arthrodesis HAND SURGERY 1989 Bilateral PROCEDURE: HISTORICAL HAND SURGERY; COMMENT: right tendo repair; left thumb x2; region with pins in place TUBAL LIGATION 2007 PROCEDURE: HISTORICAL TUBAL LIGATION OTHER SURGICAL HISTORY 09/2017 PROCEDURE: NC ARTHRD ANT INTERBODY MIN DSC LUMBAR COLONOSCOPY 2017 PROCEDURE: HISTORICAL COLONOSCOPY TOTAL KNEE ARTHROPLASTY 02/03/2019 Right PROCEDURE: HISTORICAL TOTAL KNEE REPLACE BREAST BIOPSY 10/08/2013 PROCEDURE: NC BX BREAST NEEDLE CORE W/O IMAGING GUIDANCE [...] under breast and belly Deep vein thrombosis (CMS/HC C V24, CMS/HCC V28) DX:Deep vein thrombosis (HCC);COMMENT:right knee after surgery Sleep [...] replacement; COMMENT: 01/2019 DVT (deep venous thrombosis) ([facility] V24, [facility] V28) 04/01/2019 DX:DVT (deep venous thrombos is) ([facility]); COMMENT: 02/2019 on Xarelto Epigastric pain DX:Epigastric [...] care for your loved ones. For example, child and youth program assistant or elderly care for an older adult? [...] Mass Index 31.51 02/19/2025 2:32 PM EDT Plan of Treatment Upcoming Encounters Date Type Department Care Team (Late st Contact Info) Description 03/03/2025 3:30 PM EDT Office Visit Orthopedic Surgery [facility] [address] [phone] Brian Ferrari MD [address] [address] 03/04/2025 3:30 PM EDT Office Visit Orthopedic [facility] [address] [phone] Brian Ferrari MD [address] [address] 03/08/2025 3:00 PM EDT [facility]ointment [facility] [address] [place] [phone] 03/12/2025 3:30 PM EDT Office Visit Orthopedic Surgery [facility] 160 175 [facility] 160 [place] [phone] Aida White PA 175 [facility] 160 [place] [address] 05/25/2025 9:40 AM EDT Office Visit Obstetrics & Gynecology - [address] [phone] Aparna Edwards, CNM [address] [place] [address] Health Maintenance Due Date Last Done Comments DTaP,Tdap,and Td Vaccines (1 - Tdap) 1986 Pneumococcal Vaccine: 50+ Years (2 of 2 - PCV) 2017 02/05/2008 Zoster Vaccines (1 of 2) 2017 Medicare Annual Wellness Visit 09/29/2022 COVID-19 Vaccine ( season) 2024 08/20/2022, 02/27/2022, 09/22/2021, Additional history exists Influenza Vaccine (Season Ended) 2025 08/20/2022, 07/21/2021, 07/22/2020, Additional history exists Breast Cancer Screening 10/29/2025 10/29/19 24, 09/28/2022, 09/07/2020, Additional history exists Depression Screening 12/22/2025 12/22/2024, 05/11/20 24 Social Influencers of Health Screening 12/22/2025 12/22/2024 Hypertension/CHF/CAD Annual BMP Blood Test 02/19/2026 02/19/2025, 07/19/2024, 07/19/2024, Additional history exists Cervical Cancer Screening: HPV 07/13/2026 07/13/2021 Colorectal Cancer Screening: Colonoscopy 03/24/2028 03/24/2018 Cholesterol Screening (Lipid Panel) 02/19/2030 02/19/2025, 12/09/2023 Pneumococcal Vaccine: Pediatrics (0 to 5 [...] age to complete this topic Meningococcal B Vaccine Aged Out No l onger eligible based on patient's age to complete this topic RSV Immunization Patients Under 20 months Aged Out No longer eligible based on patient's age to complete this topic Varicella Vaccines Aged Out No longer eligible based on patient's age to complete this topic Medical Devices Implanted Type Area Fruit Pitter Device Identifier Shelf Expiration Date Model / Serial / Lot Ragini Vesuvius 100 5ml Stry-K2m [id number] Implanted:Qty: 1 on 07/16/2024 by Nathan Hayward MD N/A: Spine Lumbar LAXMI SPINE 02/17/2027 [id number] / [id number] / Bone Graft Spine Infus Xsm Medt-Sofa [id number] Implanted:Qty: 1 on 07/16/2024 by Nathan Hayward MD N/A: Spine Lumbar [employer] SOFAMOR DANEK 11/20/2025 [id number] / / [id number] [place] Interbody System Implanted:Qty: 1 on 07/16/2024 by Nathan Hayward MD N/A: Spine Lumbar LAXMI - MEDICAL 10/30/2028 [id number] / / [id number] Plate [facility] 2hl 18mm Stry-K2m [id number] Implanted:Qty: 1 on 07/16/2024 by Nathan Hayward MD N/A: Spine Lumbar LAXMI SPINE [id number] / / 5.0x40mm Screw Implanted:Qty: 2 on 07/16/2024 by Nathan Hayward MD N/A: Spine Lumbar LAXMI - MEDICAL [id number] / / Plate Assembly Screw Implanted:Qty: 1 on 07/16/2024 by Nathan Hayward MD N/A: Spine Lumbar LAXMI - MEDICAL [id number] / / Procedures Procedure Name Priority Date/Time Associated Diagnosis Comments LIPID PANEL WITH REFLEX TO DIRECT LDL Routine 02/19/2025 3:19 PM EDT Hyperlipidemia, unspecified hyperlipidemia type COMPLETE BLOOD COUNT Routine 02/19/2025 3:19 PM EDT Primary hypertension COMPREHENSIVE METABOLIC PANEL Routine 02/19/2025 3:19 PM EDT Primary hypertension THYROID STIMULATING HORMONE Routine 02/19/2025 3:19 PM EDT Primary hypertension ECG 12-LEAD Routine 02/09/2025 2:39 PM EDT Abnormal EKG NC INJECTION SINGLE TENDON SHEATH OR LIGAMENT APONEUROSIS Routine 01/04/2025 4:00 PM EDT Trigger ring finger of right hand NC INJECTION SINGLE TENDON SHEATH OR LIGAMENT APONEUROSIS Routine 01/04/2025 4:00 PM EDT Trigger finger of right thumb XR SHOULDER 2+ VIEWS RIGHT Routine 12/30/2024 3:51 PM EDT Pain NC ARTHROCENTESIS/ASPIRA TION/INJECTION MAJOR JOINT/BURSA W/O U/S GUIDANCE Routine 12/30/2024 3:00 PM EDT Chronic pain of both shoulders Nontraumatic incomplete tear of right rotator cuff Arthritis of right glenohumeral joint Rotator cuff syndrome of left shoulder EXTERNAL MRI REPORT 12/26/2024 EXTERNAL MRI REPORT 12/26/2024 EXTERNAL CLINICAL LAB 12/01/2024 EXTERNAL CLINICAL LAB 12/01/2024 EXTERNAL CLINICAL LAB 12/01/2024 HM DEPRESSION SCREENING Routine 05/11/2024 SANDEEP SCREENING DIGITAL Routine 10/29/2023 4:40 PM EST Encounter for screening mammogram for malignant neoplasm of breast HEPATITIS C SCREENING Routine 08/05/2023 HIV SCREENING Routine 08/05/2023 HPV Routine 07/13/2021 COLONOSCOPY Routine 03/24/2018 from Last 3 Months or Most Recently Relevant to Health Maintenance Results * (ABNORMAL) Lipid panel with reflex to direct LDL (02/19/2025 3:19 PM EDT) Cholesterol 238(H) 0 - 200 mg/dL LAB CHEMISTRY METHOD 02/19/2025 4:33 PM EDT [facility] Triglycerides 91 0 - 150 mg/dL LAB CHEMISTRY METHOD 02/19/2025 4:33 PM EDT [facility] HDL 54 >=40 mg/dL LAB CHEMISTRY METHOD 02/19/2025 4:33 PM EDT [facility] LDL Calculated 166(H) 0 - 100 mg/dL LAB CHEMISTRY METHOD 02/19/2025 4:33 PM EDT [facility] VLDL Cholesterol Jose Luis 18.2 mg/dL LAB CHEMISTRY METHOD 02/19/2025 4:33 PM EDT [facility] Non HDL Chol. (LDL+VLDL) 184(H) <145 mg/dL LAB CHEMISTRY METHOD 02/19/2025 4:33 PM EDT [facility] Chol/HDL Ratio 4.4 0.0 - 4.4 LAB CHEMISTRY METHOD 02/19/2025 4:33 PM EDT [facility] Blood Venous blood specimen / Unknown Venipuncture / Unknown 02/19/2025 3:19 PM EDT 02/19/2025 3:40 PM EDT us Jessa Gandhi NP LAB BLOOD ORDERABLES Final Resul t [facility] [address] [place] [address], * (ABNORMAL) Complete blood count (02/19/2025 3:19 PM EDT) WBC 5.2 4.8 - 10.8 K/mcL LAB HEMETOLOGY METHOD 02/19/2025 3:49 PM EDT [facility] RBC 4.60 3.80 - 4.80 M/mcL LAB HEMETOLOGY METHOD 02/19/2025 3:49 PM EDT [facility] Hemoglobin 13.4 11.5 - 16.0 g/dL LAB HEMETOLOGY METHOD 02/19/2025 3:49 PM EDT [facility] Hematocrit 41.8 35.0 - 47.0 % LAB HEMETOLOGY METHOD 02/19/2025 3:49 PM EDT [facility] MCV 90.7 79.0 - 98.0 FL LAB HEMETOLOGY METHOD 02/19/2025 3:49 PM EDT [facility] MCH 29.1 27.0 - 32.0 pcg LAB HEMETOLOGY METHOD 02/19/2025 3:49 PM EDT [facility] MCHC 32.1 32.0 - 37.0 g/dL LAB HEMETOLOGY METHOD 02/19/2025 3:49 PM EDT [facility] RDW 15.2(H) 11.0 - 15.0 % LAB HEMETOLOGY METHOD 02/19/2025 3:49 PM EDT [facility] Platelets 260 130 - 400 K/mcL LAB HEMETOLOGY METHOD 02/19/2025 3:49 PM EDT [facility] MPV 10.2 7.0 - 11.0 FL LAB HEMETOLOGY METHOD 02/19/2025 3:49 PM EDT [facility] NRBC 0.0 <1.0 % LAB HEMETOLOGY METHOD 02/19/2025 3:49 PM EDT [facility] NRBC Absolute 0.00 <0.10 K/mcL LAB HEMETOLOGY METHOD 02/19/2025 3:49 PM EDT [facility] Blood Venous blood specimen / Unknown Venipuncture / Unknown 02/19/2025 3:19 PM EDT 02/19/2025 3:40 PM EDT [facility] LAB BLOOD ORDERABLES Final Resul t Performing Organization Address [facility]/ZIP Co de Phone Number [facility] [address] [place] [address], [place] [phone] * Thyroid stimulating hormone (02/19/2025 3:19 PM EDT) TSH 0.62 0.40 - 4.00 mcIU/mL LAB CHEMISTRY METHOD 02/19/2025 5:41 PM EDT [facility] Blood Venous blood specimen / Unknown Venipuncture / Unknown 02/19/2025 3:19 PM EDT 02/19/2025 3:40 PM EDT Jessa Gandhi FLIGHT ATTENDANT LAB BLOOD ORDERABLES Final Resul t Performing Organization Address City/[facility]/ZIP Co de Phone Number [facility] [address] [place] [address], [place] [phone] * Comprehensive metabolic panel (02/19/2025 3:19 PM EDT) Sodium 139 133 - 145 mmol/L LAB CHEMISTRY METHOD 02/19/2025 4:33 PM EDT [facility] Potassium 4.5 3.5 - 5.5 mmol/L LAB CHEMISTRY METHOD 02/19/2025 4:33 PM EDT [facility] Chloride 106 96 - 110 mmol/L LAB CHEMISTRY METHOD 02/19/2025 4:[address] [facility] CO2 30 21 - 32 mmol/L LAB CHEMISTRY METHOD 02/19/2025 4:[address] [facility] Anion Gap 3 3 - 11 LAB CHEMISTRY METHOD 02/19/2025 4:[address] [facility] Glucose 86 70 - 100 mg/dL LAB CHEMISTRY METHOD 02/19/2025 4:[address] [facility] BUN 13 5 - 25 mg/dL LAB CHEMISTRY METHOD 02/19/2025 4:[address] [facility] Creatinine 0.91 0.50 - 1.10 mg/dL LAB CHEMISTRY METHOD 02/19/2025 4:[address] [facility] eGFR 74 >=60 mL/min/1. 73m2 LAB CHEMISTRY METHOD 02/19/2025 4:[address] [facility] Comment:Calculation based on the??Chronic Kidney Disease Epidemiology Collaboration (CKD-EPI) equation refit??without adjustment for race. BUN/Creatinine Ratio 14.3 LAB CHEMISTRY METHOD 02/19/2025 4:[address] [facility] Calcium 9.4 8.5 - 10.5 mg/dL LAB CHEMISTRY METHOD 02/19/2025 4:[address] [facility] AST (SGOT) 27 10 - 42 unit/L LAB CHEMISTRY METHOD 02/19/2025 4:[address] [facility] ALT (SGPT) 49 10 - 60 unit/L LAB CHEMISTRY METHOD 02/19/2025 4:[address] [facility] Alkaline Phosphatase 79 42 - 121 unit/L LAB CHEMISTRY METHOD 02/19/2025 4:[address] [facility] Total Protein 7.7 6.0 - 8.0 g/dL LAB CHEMISTRY METHOD 02/19/2025 4:[address] [facility] Albumin 4.1 3.2 - 5.0 g/dL LAB CHEMISTRY METHOD 02/19/2025 4:33 PM EDT [facility] Total Bilirubin 0.8 0.0 - 1.4 mg/dL LAB CHEMISTRY METHOD 02/19/2025 4:33 PM EDT [facility] Blood Venous blood specimen / Unknown Venipuncture / Unknown 02/19/2025 3:19 PM EDT 02/19/2025 3:40 PM EDT us Jessa Gandhi FLIGHT ATTENDANT LAB BLOOD ORDERABLES Final Resul t Performing Organization Address [facility]/ZIP Co de Phone Number [facility]) [facility] [address] [place] [address], [place] [phone] * ECG 12 lead (02/09/2025 2:39 PM EDT) Ventricular Rate ECG 57 BPM GEMUSE Atrial Rate 57 BPM GEMUSE P-R Interval 132 ms GEMUSE QRS Duration 86 ms GEMUSE Q-T Interval 388 ms GEMUSE QTc 377 ms GEMUSE P Wave [place] 23 degrees GEMUSE R [place] 47 degrees GEMUSE T [place] 44 degrees GEMUSE ECG Interpretation Sinus bradycardia Otherwise normal ECG When compared with ECG of 14-APR-2024 18:52, Vent. rate has decreased BY ??62 BPM Confirmed by MD Nirav, Ralf ([id number]) on 02/09/2025 3:35:19 PM GEMUSE 02/09/2025 2:39 PM EDT 02/09/2025 3:35 PM EDT Ralf Gastelum MD ECG ORDERABLES Final Res ult Performing Organization Address City/[facility]/ZIP Co de Phone Number GEMUSE * NC INJECTION SINGLE TENDON SHEATH OR LIGAMENT APONEUROSIS (01/04/2025 4:00 PM EDT) Narrative Marci Bernardo PA - 01/04/2025 4:00 PM EDT JOHN [...] [facility] IN CLINIC/BEDSIDE ORDERABLES Final Result * NC INJECTION SINGLE TENDON SHEATH OR LIGAMENT APONEUROSIS (01/04/2025 4:00 PM EDT) Narrative Marci Bernardo PA - 01/04/2025 4:00 PM EDT JOHN [...] IMG XR PROCEDURES Final Resul t * NC ARTHROCENTESIS/ASPIRATION/INJECTION MAJOR JOINT/BURSA W/O U/S GUIDANCE (12/30/2024 [...] Fin al Result * Depression Screening (05/11/2024) Pathologist [facility] Depression Screening Abstracted Historical Provider HEALTH MAINTENANCE Final Result * SANDEEP SCREENING DIGITAL (10/29/2023 4:40 PM EST) Anatomical Region Laterality Modality Mammography 10/29/2023 3:10 PM EST Narrative 10/29/2023 4:40 PM EST [facility] Diagnostic Imaging Department [address] [place] [address] Patient: ??JOSH SUNG ?/Age/Sex: 1965 - 58 - F Unit#: ??[id number] ? Location/Status: ??SPDIMAM/PRE CLI ? Mnemonic/Ordering Site: ??DIGSC/SPMAM Ordering Physician: ??MICHAEL LAWRENCE MD [facility] Screening Digital - 10/29/23 - 1623 Report Status:Signed EXAM: [facility] Screening Digital EXAM DATE AND TIME: 10/29/2023 4:24 PM HISTORY: ??Screening. Previous left breast biopsies, most recently in 2020, pathology benign. Mother had breast carcinoma at age 40. COMPARISON: ??09/27/22, 10/05/20, 09/07/20, 05/11/19 TECHNIQUE: Bilateral digital breast tomosynthesis was performed in the CC and MLO projections. Computer aided detection with InsideMaps 3D 3.1 was employed. TISSUE DENSITY: a. [...] Note Ester Chacko MD - 06/08/2024 [facility] Diagnostic Imaging Department [address] [place] [address] Patient: ANA LILIAJOSH /Age/Sex: 1965 - 58 - F Unit#: [id number] Location/Status: SPDIMAM/PRE CLI Mnemonic/Ordering Site: [facility] Ordering Physician: MICHAEL LAWRENCE MD [facility] Screening Digital - 10/29/23 - 1623 Report Status:Signed EXAM: [facility] Screening Digital EXAM DATE AND TIME: 10/29/2023 4:24 PM HISTORY: Screening. Previous left breast biopsies, most recently [id number], pathology benign. Mother had breast carcinoma at age 40. COMPARISON: 09/27/22, 10/05/20, 09/07/20, 05/11/19 TECHNIQUE: Bilateral digital breast tomosynthesis was performed in the CCand MLO projections. Computer aided detection with InsideMaps 3D 3.1was employed. TISSUE DENSITY: a. The [...] PROCEDURES Final Result * HIV Screening (08/05/2023) Pathologist [facility] HIV Screening Abstracted Result [facility] Provider HEALTH MAINTENANCE Final Result * Hepatitis C Screening (08/05/2023) Pathologist [facility] Hepatitis C Screening Abstracted [facility] Provider HEALTH MAINTENANCE Final Result * Cervical Cancer Screening: HPV (07/13/2021) Pathologist [facility] Cervical Cancer Screening: HPV Negative, abstracted [facility] Provider HEALTH MAINTENANCE Final Result * Colonoscopy (03/24/2018) Pathologist [facility] Colonoscopy No interpretation , abstracted Comment:External Completion of test per patient (Patient reports normal results) Anatomical Region Laterality Modality Other [facility] Provider HEALTH MAINTENANCE Final Result from Last 3 Months or Most Recently Relevant to Health Maintenance Insurance [place] [facility] MEDICARE Member Subscriber Plan / Payer (Ef fective 2022-Present) Name:Josh Sung Relation to Subscriber:Self Name:Josh Sung Payer ID:[id number] Group ID:[id number] Type:Not on file Address: [address] [place] [phone] Advance Directives Documents on File Type Date Recorded Patient Commodity Director Expl anation Health Care Decision (hx) 03/05/2024 AD LAM DIRECTIVE Health Care Decision (hx) 03/05/2024 AD LAM DIRECTIVE Health Care Decision (hx) 03/05/2024 AD LAM DIRECTIVE Health Care Decision (hx) 03/05/2024 AD ALM DIRECTIVE Health Care Decision (hx) 02/13/2024 [facility] Care Teams Lay Out Carpenter Relationship Specialty Start Date End Date Michael Lawrence MD [address] [place] [address] [id number] PCP - General Internal Medicine 09/24/16
--- OUTSIDE RECORDS SUMMARY | 2025-02-23 16:56 | XMS_ITS | Encounter Summary ---
Author Organization [facility] Address [address] [place] [address] Care Team Providers Care Professor Of German Name Role Phone Mily Lawrence MD Primary Care Provider +1- [phone] Ralf Gastelum MD Unavailable [phone] Gretchen Juan MD Unavailable [phone] aKtherine Snow PA-C Unavailable [phone] Per Leahy PA-C Unavailable [phone] Reason for Visit * Reason Comments E-prescribe Rx Request Encounter Details Date Type Department Care Team Description 12/28/[facility] [address], [address] [place] [address] Alejandro Sibley MD [address] [place] [address] E-prescribe Rx Request Social History Tobacco Use [...] N/A Patients current insurance carrier is: Payor: [employer] FFS / Plan: [employer] / Product Type: MEDICAID RISK documented in this encounter Plan of Treatment Not on file documented as of this encounter Visit Diagnoses Not on filedocumented in this encounter Care Teams Professor Of German Relationship Specialty Start Date End Date Mily Lawrence MD PCP - General Internal Medicine 03/09/19 Ralf Gastelum MD 300 [facility] [address] [place] [address] Specialist Cardiovascular Disease 06/08/22 Gretchen Juan MD 175 [facility] 300 [place] [address] Surgeon Neurosurgery 02/13/23 Katherine Snow PA-C 175 [facility] 300 [place] [address] Specialist Neurosurgery 02/13/23 Per Leahy PA-C 175 [facility] 300 [place] [address] Specialist Neurosurgery 02/13/23 documented as of this encounter
--- OUTSIDE RECORDS SUMMARY | 2025-02-23 16:56 | XMS_ITS | Encounter Summary ---
Author Organization [facility] Address [address] [place] [address] Care Team Providers Care Yacht Rigger Name Role Phone Mily Lawrence MD Primary Care Provider +[phone] Ralf Gastelum MD Unavailable [phone] Gretchen Juan MD Unavailable [phone] Katherine Snow PA-C Unavailable [phone] Per Leahy PA-C Unavailable [phone] Reason for Visit * Reason Comments E-prescribe Rx Request Encounter Details Date Type Department Care Team Description 04/29/[address] Internal Medicine - [address], [address] [place] [address] Mily Lawrence MD [address] [place] [phone] E-prescribe Rx Request Social History Tobacco [...] on filedocumented in this encounter Care Teams Yacht Rigger Relationship Specialty Start Date End Date Mily Lawrence MD PCP - General Internal Medicine 03/09/19 Ralf Gastelum MD 300 [facility] 154 [place] [address] Specialist Cardiovascular Disease 06/08/22 Gretchen Juan MD 175 [facility] 300 [place] [address] Surgeon Neurosurgery 02/13/23 Katherine Snow PA-C [address] [address] Specialist Neurosurgery 02/13/23 Per Leahy PA-C [address] [address] Specialist Neurosurgery 02/13/23 documented as of this encounter
--- OUTSIDE RECORDS SUMMARY | 2025-02-23 16:56 | XMS_ITS | Encounter Summary ---
Author Organization [facility] Address [address] [place] [address] Care Team Providers Care Protective Service Specialist Name Role Phone Trey Mueller MD Primary Care Provider Unavaila ble Mily Lawrence MD Primary Care Provider +1- [phone] Ralf Gastelum MD Unavailable [phone] Gretchen Juan MD Unavailable [phone] Katherine Snow PA-C Unavailable [phone] Per Leahy PA-C Unavailable [phone] Encounter Details Date Type Department Care Team Description 02/04/2019 [facility] Medical Records [address] [place] [address] [place] [address] Social History Tobacco Use Types Packs/Day Years [...] on filedocumented in this encounter Care Teams Protective Service Specialist Relationship Specialty Start Date End Date Trey Mueller MD PCP - General Internal Medicine 01/02/19 03/08/19 Mily Lawrence MD PCP - General Internal Medicine 03/09/19 Ralf Gastelum MD 300 [facility] [address] [place] [address] Specialist Cardiovascular Disease 06/08/22 Gretchen Juan MD 175 [facility] 300 [place] [address] Surgeon Neurosurgery 02/13/23 Katherine Snow PA-C 175 [facility] 300 [place] [address] Specialist Neurosurgery 02/13/23 Per Leahy PA-C 175 [facility] 300 [place] [address] Specialist Neurosurgery 02/13/23 documented as of this encounter
--- OUTSIDE RECORDS SUMMARY | 2025-02-23 16:56 | XMS_ITS | Encounter Summary ---
Author Organization [facility] Address [address] [place] [address] Care Team Providers Care Subassembly Supervisor Name Role Phone Mily Lawrence MD Primary Care Provider +1 [phone] Trey Mueller MD Primary Care Provider Unavaila ble Mily aLwrence MD Primary Care Provider +[phone] Ralf Gastelum MD Unavailable [phone] Gretchen Juan MD Unavailable [phone] Katherine Snow PA-C Unavailable [phone] Per Leahy PA-C Unavailable [phone] Reason for Visit * Reason Onset Date Comments Pre Op Visit 12/25/2018 Encounter Details Date Type Department Care Team Description 12/25/2018 Telephone Internal Medicine - [address], [address] [place] [address] Mily Lawrence MD [address] [place] [phone] Pre Op Visit Social History Tobacco [...] Magdi Daniel Office phone number of surgeon: [phone] Fax # for surgeons office: [phone] Where is surgery being performed? [facility] Admitting Diagnosis/problem for surgery: Osteoarthritis PCP: Mily Lawrence Did you verify that the insurance below is correct? YES Patients insurance: Payor: [employer] FFS / Plan: [employer] / Product Type: MEDICAID RISK documented in this encounter Plan of Treatment Not on file documented as of this encounter Visit Diagnoses Not on filedocumented in this encounter Care Teams Subassembly Supervisor Relationship Specialty Start Date End Date Mily Lawrence MD PCP - General Internal Medicine 03/13/17 01/01/19 Trey Mueller MD PCP - General Internal Medicine 01/02/19 03/08/19 Mily Lawrence MD PCP - General Internal Medicine 03/09/19 Ralf Gastelum MD 300 [facility] [address] [place] [address] Specialist Cardiovascular Disease 06/08/22 Gretchen Juan MD [address] [address] Surgeon Neurosurgery 02/13/23 Katherine Snow PA-C [address] [address] Specialist Neurosurgery 02/13/23 Per Leahy PA-C [address] [address] Specialist Neurosurgery 02/13/23 documented as of this encounter
--- OUTSIDE RECORDS SUMMARY | 2025-02-23 16:56 | XMS_ITS | Encounter Summary ---
Author Organization [facility] Address [address] [place] [address] Care Team Providers Care Packing Machine Inspector Name Role Phone rTey Mueller MD Primary Care Provider Unavaila ble Mily Lawrence MD Primary Care Provider +[phone]- [phone] Ralf Gastelum MD Unavailable [phone] Gretchen Juan MD Unavailable [phone] Katherine Snow PA-C Unavailable [phone] Per Leahy PA-C Unavailable [phone] Encounter Details Date Type Department Care Team Description 02/01/2019 [facility] Orthopedist Report Medical Records [address] [place] [address] Evelio Smith Social History Tobacco Use Types [...] on filedocumented in this encounter Care Teams Packing Machine Inspector Relationship Specialty Start Date End Date Trey Mueller MD PCP - General Internal Medicine 01/02/19 03/08/19 Mily Lawrence MD PCP - General Internal Medicine 03/09/19 Ralf Gastelum MD 300 [facility] [address] [place] [address] Specialist Cardiovascular Disease 06/08/22 Gretchen Juan MD 175 [facility] 300 [place] [address] Surgeon Neurosurgery 02/13/23 Katherine Snow PA-C 175 [facility] 300 [place] [address] Specialist Neurosurgery 02/13/23 Per Leahy PA-C 175 [facility] 300 [place] [address] Specialist Neurosurgery 02/13/23 documented as of this encounter
--- OUTSIDE RECORDS SUMMARY | 2025-02-23 16:56 | XMS_ITS | Encounter Summary ---
Author Organization [facility] Address [address] [place] [address] Care Team Providers Care Sports Teacher Name Role Phone Trey Mueller MD Primary Care Provider Unavaila ble Mily Lawrence MD Primary Care Provider +1- [phone] Ralf Gastelum MD Unavailable [phone] Gretchen Juan MD Unavailable [phone] Katherine Snow PA-C Unavailable [phone] Per Leahy PA-C Unavailable [phone] Encounter Details Date Type Department Care Team Description 02/03/2019 Hospital Medical Records [address] [place] [address] Magdi Daniel MD [address] [place] [address] [place] [address] Social History Tobacco Use Types Packs/Day Years [...] on filedocumented in this encounter Care Teams Sports Teacher Relationship Specialty Start Date End Date Trey Mueller MD PCP - General Internal Medicine 01/02/19 03/08/19 Mliy Lawrence MD PCP - General Internal Medicine 03/09/19 Ralf Gastelum MD 300 [facility] 154 [place] [address] Specialist Cardiovascular Disease 06/08/22 Gretchen Jaun MD [address] [address] Surgeon Neurosurgery 02/13/23 Katherine Snow PA-C 175 [facility] 300 [place] [address] Specialist Neurosurgery 02/13/23 Per Leahy PA-C [address] [address] Specialist Neurosurgery 02/13/23 documented as of this encounter
--- OUTSIDE RECORDS SUMMARY | 2025-02-23 16:56 | XMS_ITS | Encounter Summary ---
Author Organization [facility] Address [address] [place] [address] Care Team Providers Care Duplicating Machine Operator Name Role Phone Mily Lawrence MD Primary Care Provider [phone]- [phone] Trey Mueller MD Primary Care Provider Unavaila ble Mily Lawrence MD Primary Care Provider +[phone]- [phone] Mily Lawrence MD Primary Care Provider +[phone]- [phone] Ralf Gastelum MD Unavailable [phone] Gretchen Juan MD Unavailable [phone] Katherine Snow PA-C Unavailable [phone] Per Leahy PA-C Unavailable [phone] Encounter Details Date Type Department Care Team Description 11/01/2016 [facility] Medical Records [address] [place] [address] Dick Marte MD Social History Tobacco Use [...] on filedocumented in this encounter Care Teams Duplicating Machine Operator Relationship Specialty Start Date End Date Mily Lawrence MD PCP - General Internal Medicine 03/13/17 01/01/19 Trey Mueller MD PCP - General Internal Medicine 01/02/19 03/08/19 Mily Lawrence MD PCP - General Internal Medicine 03/09/19 Mily Lawrence MD PCP - General 09/24/16 03/12/17 Ralf Gastelum MD 300 [facility] [address] [place] [address] Specialist Cardiovascular Disease 06/08/22 Gretchen Juan MD 175 [facility] 300 [place] [address] Surgeon Neurosurgery 02/13/23 Katherine Snow PA-C 175 [facility] 300 [place] [address] Specialist Neurosurgery 02/13/23 Per Leahy PA-C 175 [facility] 300 [place] [address] Specialist Neurosurgery 02/13/23 documented as of this encounter
--- OUTSIDE RECORDS SUMMARY | 2025-02-23 16:56 | XMS_ITS | Encounter Summary ---
Author Organization [facility] Address [address] [place] [address] Care Team Providers Care Administrative Analyst Name Role Phone Mily Lawrence MD Primary Care Provider Ralf Gastelum MD Unavailable [phone] Gretchen Juan MD Unavailable [phone] Katherine Snow PA-C Unavailable [phone] Per Leahy PA-C Unavailable [phone] Reason for Visit * Reason Onset Date Comments medication problems 10/29/2019 Encounter Details Date Type Department Care Team Description 10/29/2019 Telephone Adult Medicine [address] [address] Mily Lawrence MD [address] [place] [phone] medication problems Social History Tobacco Use [...] on filedocumented in this encounter Care Teams Administrative Analyst Relationship Specialty Start Date End Date Mily Lawrence MD PCP - General Internal Medicine 03/09/19 Ralf Gastelum MD 300 [facility] 154 [place] [address] Specialist Cardiovascular Disease 06/08/22 Gretchen Juan MD 175 [facility] 300 [place] [address] Surgeon Neurosurgery 02/13/23 Katherine Snow PA-C [address] [phone] Specialist Neurosurgery 02/13/23 Per Leahy PA-C [address] [address] Specialist Neurosurgery 02/13/23 documented as of this encounter
--- OUTSIDE RECORDS SUMMARY | 2025-02-23 16:56 | XMS_ITS | Encounter Summary ---
Author Organization [facility] Address [address] [place] [address] Care Team Providers Care Yarn Comber Name Role Phone Mily Lawrence MD Primary Care Provider [phone] Encounter Details Date Type Department Care Team (Late st Contact Info) Description 02/01/2025 Telephone Internal Medicine - [place] 175 [facility] [address] [place] [phone] Mily Lawrence MD 175 [facility] 200 [place] [phone] Social History Tobacco Use Types Packs/Day Years [...] Record ed Within the last 3 months, lawrence delgado many times did you visit the emergency [...] for your loved ones. For example, director child or elderly care for an older adult? [...] as of this encounter Plan of Treatment Upcoming Encounters Date Type Department Care Team (Late st Contact Info) Description 03/03/2025 3:30 PM EDT Office Visit Orthopedic Surgery - [address] [phone] Brian Ferrari MD 175 [facility] 250 [place] [address] 03/04/2025 3:30 PM EDT Office Visit Orthopedic Surgery [facility] 250 175 [facility] 250 [place] [phone] Brian Ferrari MD [address] [address] 03/08/2025 3:00 PM EDT [facility]ointment [facility] [address] [place] [phone] 03/12/2025 3:30 PM EDT Office Visit Orthopedic Surgery [facility] 160 175 [facility] 160 [place] [phone] Aida White PA 175 [facility] 160 [place] [address] 05/25/2025 9:40 AM EDT Office Visit Obstetrics & Gynecology - [facility] [address] [place] [phone] Jerry Aparna, [facility] [address] [place] [address] documented as of this encounter Visit Diagnoses Not on filedocumented in this encounter Additional Health Concerns Assessment Noted Time PHQ-9 Depression Total Score: 11 025 11:06 AM EST documented as of this encounter Care Teams Yarn Comber Relationship Specialty Start Date End Date Mily Lawrence MD 175 [facility] 200 [place] [phone] PCP - General Internal Medicine 09/24/16 documented as of this encounter
--- OUTSIDE RECORDS SUMMARY | 2025-02-23 16:56 | XMS_ITS | Encounter Summary ---
Author Organization [facility] Address [address] [place] [address] Care Team Providers Care Data Designer Name Role Phone Mily Lawrence MD Primary Care Provider [phone] Ralf Gastelum MD Unavailable [phone] Gretchen Juan MD Unavailable [phone] Katherine Snow PA-C Unavailable [phone] Per Leahy PA-C Unavailable [phone] Reason for Visit * Reason Comments E-prescribe Rx Request Encounter Details Date Type Department Care Team Description 11/11/[facility] - [address], [address] [place] [address] Mily Lawrence MD [address] [place] [phone] E-prescribe Rx Request Social History Tobacco [...] N/A Patients current insurance carrier is: Payor: [employer] FFS / Plan: [employer] / Product Type: MEDICAID RISK documented in this encounter Plan of Treatment Not on file documented as of this encounter Visit Diagnoses Diagnosis Chronic bilateral low back pain without sciatica- Primary documented in this encounter Care Teams Data Designer Relationship Specialty Start Date End Date Mily Lawrence MD PCP - General Internal Medicine 03/09/19 Ralf Gastelum MD [address] [place], [place] [address], [place] [address] Specialist Cardiovascular Disease 06/08/22 Gretchen Juan MD 175 [facility] 300 [place] [address] Surgeon Neurosurgery 02/13/23 Katherine Snow PA-C [address] [address] Specialist Neurosurgery 02/13/23 Per Leahy PA-C 175 [facility] 300 [place] [address] Specialist Neurosurgery 02/13/23 documented as of this encounter
--- OUTSIDE RECORDS SUMMARY | 2025-02-23 16:56 | XMS_ITS | Encounter Summary ---
Author Organization [facility] Address [address] [place] [address] Care Team Providers Care Claims Processor Name Role Phone Mily Lawrence MD Primary Care Provider [phone]- [phone] Trey Mueller MD Primary Care Provider Unavaila ble Mily Lawrence MD Primary Care Provider Mily Lawrence MD Primary Care Provider [phone] Ralf Gastelum MD Unavailable [phone] Gretchen Juan MD Unavailable [phone] Katherine Snow PA-C Unavailable [phone] Per Leahy PA-C Unavailable Encounter Details Date Type Department Care Team Description 11/02/2016 [facility] Medical Records [address] [place] [address] Ralf Gastelum MD 300 [facility] 154 [place] [address] Social History Tobacco Use Types Packs/Day Years [...] Name Priority Date/Time Associated Diagnosis Comments OUTSIDE ECHO Routine 11/02/2016 documented in this encounter Results * OUTSIDE ECHO (11/02/2016) Provider Default CARDIOLOGY documented in this encounter Visit Diagnoses Not on filedocumented in this encounter Care Teams Claims Processor Relationship Specialty Start Date End Date Mily Lawrence MD PCP - General Internal Medicine 03/13/17 01/01/19 Trey Mueller MD PCP - General Internal Medicine 01/02/19 03/08/19 Mily Lawrence MD PCP - General Internal Medicine 03/09/19 Mily Lawrence MD PCP - General 09/24/16 03/12/17 Ralf Gastelum MD 300 [facility] [address] [place] [address] Specialist Cardiovascular Disease 06/08/22 Gretchen Juan MD [address] [address] Surgeon Neurosurgery 02/13/23 Katherine Snow PA-C [address] [address] Specialist Neurosurgery 02/13/23 Per Leahy PA-C [address] [address] Specialist Neurosurgery 02/13/23 documented as of this encounter
--- OUTSIDE RECORDS SUMMARY | 2025-02-23 16:56 | XMS_ITS | Encounter Summary ---
Author Organization [facility] Address [address] [place] [address] Care Team Providers Care Hay Sorter Name Role Phone Trey Mueller MD Primary Care Provider Unavaila ble Mily Lawrence MD Primary Care Provider +[phone]- [phone] Ralf Gastelum MD Unavailable [phone] Gretchen Juan MD Unavailable [phone] Katherine Snow PA-C Unavailable [phone] Per Leahy PA-C Unavailable [phone] Encounter Details Date Type Department Care Team Description 03/06/2019 [place] Can Worker Report Medical Records [address] [place] [address] Magdi Daniel MD [address] [place] [address] [place] [address] Social History Tobacco Use Types Packs/Day Years [...] on filedocumented in this encounter Care Teams Hay Sorter Relationship Specialty Start Date End Date Trey Mueller MD PCP - General Internal Medicine 01/02/19 03/08/19 Mily Lawrence MD PCP - General Internal Medicine 03/09/19 Ralf Gastelum MD 300 [facility] 154 [place] [address] Specialist Cardiovascular Disease 06/08/22 Gretchen Juan MD 175 [facility] 300 [place] [address] Surgeon Neurosurgery 02/13/23 Katherine Snow PA-C 175 [facility] 300 [place] [address] Specialist Neurosurgery 02/13/23 Per Leahy PA-C 175 [facility] 300 [place] [address] Specialist Neurosurgery 02/13/23 documented as of this encounter
--- OUTSIDE RECORDS SUMMARY | 2025-02-23 16:56 | XMS_ITS | Encounter Summary ---
Author Organization [facility] Address [address] [place] [address] Care Team Providers Care Computer Publisher Name Role Phone Trey Mueller MD Primary Care Provider Unavaila Mily Mayen MD Primary Care Provider +[phone]- [phone] Ralf Gastelum MD Unavailable [phone] Gretchen Juan MD Unavailable [phone] Katherine Snow PA-C Unavailable [phone] Per Leahy PA-C Unavailable [phone] Encounter Details Date Type Department Care Team Description 02/24/2019 Transfer Records Medical Records [address] [place] [address] Abstract, Provider Social History Tobacco Use Types [...] on filedocumented in this encounter Care Teams Computer Publisher Relationship Specialty Start Date End Date Trey Mueller MD PCP - General Internal Medicine 01/02/19 03/08/19 Mily Lawrence MD PCP - General Internal Medicine 03/09/19 Ralf Gastelum MD 300 [facility] [address] [place] [address] Specialist Cardiovascular Disease 06/08/22 Gretchen Juan MD 175 [facility] 300 [place] [address] Surgeon Neurosurgery 02/13/23 Katherine Snow PA-C 175 [facility] 300 [place] [address] Specialist Neurosurgery 02/13/23 Per Leahy PA-C 175 [facility] 300 [place] [address] Specialist Neurosurgery 02/13/23 documented as of this encounter
--- OUTSIDE RECORDS SUMMARY | 2025-02-23 16:56 | XMS_ITS | Encounter Summary ---
Author Organization [facility] Address [address] [place] [address] Care Team Providers Care Instructional Design Consultant Name Role Phone Mily Lawrence MD Primary Care Provider +[phone] Ralf Gastelum MD Unavailable [phone] Gretchen Juan MD Unavailable [phone] Katherine Snow PA-C Unavailable [phone] Per Leahy PA-C Unavailable [phone] Reason for Visit * Reason Comments E-prescribe Rx Request Encounter Details Date Type Department Care Team Description 06/27/2020 [facility] - [address] [place] [address] Mily Lawrence MD [address] [place] [phone] E-prescribe Rx Request Social History Tobacco [...] unspecified documented in this encounter Care Teams Instructional Design Consultant Relationship Specialty Start Date End Date Mily Lawrence MD PCP - General Internal Medicine 03/09/19 Ralf Gastelum MD 300 [facility] 154 [place] [address] Specialist Cardiovascular Disease 06/08/22 Gretchen Juan MD 175 [facility] 300 [place] [address] Surgeon Neurosurgery 02/13/23 Katherine Snow PA-C 175 [facility] [address] [place] [address] Specialist Neurosurgery 02/13/23 Per Leahy PA-C [address] [id number] Specialist Neurosurgery 02/13/23 documented as of this encounter
--- OUTSIDE RECORDS SUMMARY | 2025-02-23 16:56 | XMS_ITS | Encounter Summary ---
Author Organization [facility] Address [address] [place] [address] Care Team Providers Care Medical Housekeeper Name Role Phone Trey Mueller MD Primary Care Provider Unavaila ble Mily Lawrence MD Primary Care Provider +[phone]- [phone] Ralf Gastelum MD Unavailable [phone] Gretchen Juan MD Unavailable [phone] Kahterine Snow PA-C Unavailable [phone] Per Leahy PA-C Unavailable [phone] Encounter Details Date Type Department Care Team Description 03/04/2019 Orders Only Internal Medicine - [address], [address] [place] [address] Trey Mueller MD Acute deep vein thrombosis [...] Primary documented in this encounter Care Teams Medical Housekeeper Relationship Specialty Start Date End Date Trey Mueller MD PCP - General Internal Medicine 01/02/19 03/08/19 Mily Lawrence MD PCP - General Internal Medicine 03/09/19 Ralf Gastelum MD [address] [address] Specialist Cardiovascular Disease 06/08/22 Gretchen Juan MD [address] [address] Surgeon Neurosurgery 02/13/23 Katherine Snow PA-C [address] [address] Specialist Neurosurgery 02/13/23 Per Leahy PA-C [address] [address] Specialist Neurosurgery 02/13/23 documented as of this encounter
--- OUTSIDE RECORDS SUMMARY | 2025-02-23 16:56 | XMS_ITS | Encounter Summary ---
Author Organization [facility] Address [address] [place] [address] Care Team Providers Care Lead Dental Assistant Name Role Phone Mily Lawrence MD Primary Care Provider +[phone] Ralf Gastelum MD Unavailable [phone] Gretchen Juan MD Unavailable [phone] Katherine Snow PA-C Unavailable [phone] Per Leahy PA-C Unavailable [phone] Encounter Details Date Type Department Care Team Description 06/07/2020 Straightening Roll Operator Report Medical Records [address] [place] [address] Camilla Lopez MD Social History Tobacco Use [...] filedocumented in this encounter Care Teams Lead Dental Assistant Relationship Specialty Start Date End Date Mily Lawrence MD PCP - General Internal Medicine 03/09/19 Ralf Gastelum MD 300 [facility] [address] [place] [address] Specialist Cardiovascular Disease 06/08/22 Gretchen uJan MD 175 [facility] 300 [place] [address] Surgeon Neurosurgery 02/13/23 Katherine Snow PA-C 175 [facility] 300 [place] [address] Specialist Neurosurgery 02/13/23 Per Leahy PA-C 175 [facility] 300 [place] [address] Specialist Neurosurgery 02/13/23 documented as of this encounter
--- OUTSIDE RECORDS SUMMARY | 2025-02-23 16:56 | XMS_ITS | Encounter Summary ---
Author Organization [facility] Address [address] [place] [address] Care Team Providers Care Government Employee Name Role Phone Trey Mueller MD Primary Care Provider Unavaila ble Mily Lawrence MD Primary Care Provider [phone] Ralf Gastelum MD Unavailable [phone] Gretchen Juan MD Unavailable [phone] Katherine Snow PA-C Unavailable [phone] Per Leahy PA-C Unavailable [phone] Encounter Details Date Type Department Care Team Description 01/15/2019 Orders Only General Surgery [address] [place] [address] Irish Snow NP Breast microcalcification, mammographic (Primary [...] microcalcification documented in this encounter Care Teams Government Employee Relationship Specialty Start Date End Date Trey Mueller MD PCP - General Internal Medicine 01/02/19 03/08/19 Mily Lawrence MD PCP - General Internal Medicine 03/09/19 Ralf Gastelum MD 300 [facility] [address] [place] [address] Specialist Cardiovascular Disease 06/08/22 Gretchen Juan MD 175 [facility] 300 [place] [address] Surgeon Neurosurgery 02/13/23 Katherine Snow PA-C 175 [facility] 300 [place] [address] Specialist Neurosurgery 02/13/23 Per Leahy PA-C 175 [facility] 300 [place] [address] Specialist Neurosurgery 02/13/23 documented as of this encounter
--- OUTSIDE RECORDS SUMMARY | 2025-02-23 16:56 | XMS_ITS | Encounter Summary ---
Author Organization [facility] Address [address] [place] [address] Care Team Providers Care Quality Assurance Manager Name Role Phone Mily Lawrence MD Primary Care Provider +[phone] Ralf Gastelum MD Unavailable [phone] Gretchen Juan MD Unavailable [phone] Katherine Snow PA-C Unavailable [phone] Per Leahy PA-C Unavailable [phone] Reason for Visit * Reason Comments E-prescribe Rx Request Encounter Details Date Type Department Care Team Description 04/07/2019 [facility] Internal Medicine [address], [address] [place] [address] Mily Lawrence MD [address] [place] [phone] E-prescribe Rx Request Social History Tobacco [...] N/A Patients current insurance carrier is: Payor: [employer] FFS / Plan: [employer]IANCE / Product Type: MEDICAID RISK documented in this encounter Plan of Treatment Not on file documented as of this encounter Visit Diagnoses Not on filedocumented in this encounter Care Teams Quality Assurance Manager Relationship Specialty Start Date End Date Mily Lawrence MD PCP - General Internal Medicine 03/09/19 Ralf Gastelum MD [address] [place] [address], [place] [address] Specialist Cardiovascular Disease 06/08/22 Gretchen Juan MD 175 [facility] 300 [place] [address] Surgeon Neurosurgery 02/13/23 Katherine Snow PA-C [address] [address] Specialist Neurosurgery 02/13/23 Per Leahy PA-C 175 [facility] 300 [place] [address] Specialist Neurosurgery 02/13/23 documented as of this encounter
--- OUTSIDE RECORDS SUMMARY | 2025-02-23 16:56 | XMS_ITS | Encounter Summary ---
Author Organization [facility] Address [address] [place] [address] Care Team Providers Care Grad Intern Name Role Phone Mily Lawrence MD Primary Care Provider +[phone] Ralf Gastelum MD Unavailable +[phone] Gretchen Juan MD Unavailable [phone] Katherine Snow PA-C Unavailable [phone] Per Leahy PA-C Unavailable [phone] Reason for Visit * Reason Comments E-prescribe Rx Request Encounter Details Date Type Department Care Team Description 10/29/2019 Refill [facility] [address] [place] [phone] Mily Larwence MD [address] [place] [phone] E-prescribe Rx Request Social History Tobacco [...] is: Payor: [employer] FFS / Plan: [facility] ALLIANCE / Product Type: MEDICAID RISK documented in this encounter Plan of Treatment Not on file documented as of this encounter Visit Diagnoses Not on filedocumented in this encounter Care Teams Grad Intern Relationship Specialty Start Date End Date Mily Lawrence MD PCP - General Internal Medicine 03/09/19 Ralf Gastelum MD 300 [facility] [address] [place] [address] Specialist Cardiovascular Disease 06/08/22 Gretchen Juan MD 175 [facility] 300 [place] [address] Surgeon Neurosurgery 02/13/23 Katherine Snow PA-C 175 [facility] 300 [place] [address] Specialist Neurosurgery 02/13/23 Per Leahy PA-C 175 [facility] 300 [place] [address] Specialist Neurosurgery 02/13/23 documented as of this encounter
--- OUTSIDE RECORDS SUMMARY | 2025-02-23 16:57 | XMS_ITS | Encounter Summary ---
Author Organization [facility] Address [address] [place] [address] Care Team Providers Care Custodian Supervisor Name Role Phone Mily Lawrence MD Primary Care Provider Ralf Gastelum MD Unavailable [phone] Gretchen Juan MD Unavailable [phone] Katherine Snow PA-C Unavailable [phone] Per Leahy PA-C Unavailable [phone] Reason for Visit * Reason Comments E-prescribe Rx Request Encounter Details Date Type Department Care Team Description 05/09/2023 Refill [facility] [address] [address] Brian Ferrari MD [address] [place] [address] E-prescribe Rx Request Social History Tobacco Use [...] leg documented in this encounter Care Teams Custodian Supervisor Relationship Specialty Start Date End Date Mily Lawrence MD PCP - General Internal Medicine 03/09/19 Ralf Gastelum MD [address] [address] Specialist Cardiovascular Disease 06/08/22 Gretchen Juan MD [address] [address] Surgeon Neurosurgery 02/13/23 Katherine Snow PA-C [address] [address] Specialist Neurosurgery 02/13/23 Per Leahy PA-C [address] [address] Specialist Neurosurgery 02/13/23 documented as of this encounter
--- OUTSIDE RECORDS SUMMARY | 2025-02-23 16:57 | XMS_ITS | Encounter Summary ---
Author Organization [facility] Address [address] [place] [address] Care Team Providers Care Talent Acquisition Assistant Name Role Phone Mily Lawrence MD Primary Care Provider Ralf Gastelum MD Unavailable [phone] Gretchen Juan MD Unavailable [phone] Katherine Snow PA-C Unavailable [phone] Per Leahy PA-C Unavailable [phone] Encounter Details Date Type Department Care Team Description 02/15/2023 [facility] Neurosurgery [place] [address] [address] Gretchen uJan MD [address] [address] Social History Tobacco Use Types [...] on filedocumented in this encounter Care Teams Talent Acquisition Assistant Relationship Specialty Start Date End Date Mily Lawrence MD PCP - General Internal Medicine 03/09/19 Ralf Gastelum MD 300 [facility] [address] [place] [address] Specialist Cardiovascular Disease 06/08/22 Gretchen Juan MD 175 [facility] 300 [place] [address] Surgeon Neurosurgery 02/13/23 Katherine Snow PA-C 175 [facility] 300 [place] [address] Specialist Neurosurgery 02/13/23 Per Leahy PA-C 175 [facility] 300 [place] [address] Specialist Neurosurgery 02/13/23 documented as of this encounter
--- OUTSIDE RECORDS SUMMARY | 2025-02-23 16:57 | XMS_ITS | Encounter Summary ---
Author Organization [facility] Address [address] [place] [address] Care Team Providers Care Lawn Service Supervisor Name Role Phone Mily Lawrence MD Primary Care Provider [phone] Ralf Gastelum MD Unavailable [phone] Gretchen Juan MD Unavailable [phone] Katherine Snow PA-C Unavailable [phone] Per Leahy PA-C Unavailable [phone] Encounter Details Date Type Department Care Team Description 04/14/2024 Hospital Medical Records [address] [place] [id number] [place] [address] Social History Tobacco Use Types Packs/Day Years [...] on filedocumented in this encounter Care Teams Lawn Service Supervisor Relationship Specialty Start Date End Date Mily Lawrence MD PCP - General Internal Medicine 03/09/19 Ralf Gastelum MD 300 [facility] [address] [place] [address] Specialist Cardiovascular Disease 06/08/22 Gretchen Juan MD 175 [facility] 300 [place] [address] Surgeon Neurosurgery 02/13/23 Katherine Snow PA-C 175 [facility] 300 [place] [address] Specialist Neurosurgery 02/13/23 Per Leahy PA-C 175 [facility] 300 [place] [address] Specialist Neurosurgery 02/13/23 documented as of this encounter
--- OUTSIDE RECORDS SUMMARY | 2025-02-23 16:57 | XMS_ITS | Encounter Summary ---
Author Organization [facility] Address [address] [place] [address] Care Team Providers Care Hydrator Operator Name Role Phone Mily Lawrence MD Primary Care Provider [phone] Ralf Gastelum MD Unavailable [phone] Gretchen Juan MD Unavailable [phone] Katherine Snow PA-C Unavailable [phone] Per Leahy PA-C Unavailable [phone] Encounter Details Date Type Department Care Team Description 06/24/2024 Pt. Non Urgent Medical Question Internal Medicine - [place] 175 [facility], [address] [place] [address] Mily Lawrence MD [address] [place] [phone] Social History Tobacco Use Types Packs/Day [...] on filedocumented in this encounter Care Teams Hydrator Operator Relationship Specialty Start Date End Date Mily Lawrence MD PCP - General Internal Medicine 03/09/19 Ralf Gastelum MD 300 [facility] [address] [place] [address] Specialist Cardiovascular Disease 06/08/22 Gretchen Juan MD 175 [facility] 300 [place] [address] Surgeon Neurosurgery 02/13/23 Katherine Snow PA-C 175 [facility] 300 [place] [address] Specialist Neurosurgery 02/13/23 Per Leahy PA-C 175 [facility] 300 [place] [address] Specialist Neurosurgery 02/13/23 documented as of this encounter
--- OUTSIDE RECORDS SUMMARY | 2025-02-23 16:57 | XMS_ITS | Encounter Summary ---
Author Organization [facility] Address [address] [place] [address] Care Team Providers Care Superintendent Factory Name Role Phone Mily Lawrence MD Primary Care Provider [phone] Ralf Gastelum MD Unavailable [phone] Gretchen Juan MD Unavailable [phone] Katherine Snow PA-C Unavailable [phone] Per Leahy PA-C Unavailable [phone] Reason for Visit * Reason Comments E-prescribe Rx Request Encounter Details Date Type Department Care Team Description 05/28/2023 Refill [facility] [address] [address] Brian Ferrari MD [address] [place] [address] E-prescribe Rx Request Social History Tobacco Use [...] leg documented in this encounter Care Teams Superintendent Factory Relationship Specialty Start Date End Date Mily Lawrence MD PCP - General Internal Medicine 03/09/19 Ralf Gastelum MD [address] [address] Specialist Cardiovascular Disease 06/08/22 Gretchen Juan MD [address] [address] Surgeon Neurosurgery 02/13/23 Katherine Snow PA-C [address] [address] Specialist Neurosurgery 02/13/23 Per Leahy PA-C [address] [address] Specialist Neurosurgery 02/13/23 documented as of this encounter
--- OUTSIDE RECORDS SUMMARY | 2025-02-23 16:57 | XMS_ITS | Encounter Summary ---
Author Organization [facility] Address [address] [place] [address] Care Team Providers Care Sales Ambassador Name Role Phone Mily Lawrence MD Primary Care Provider [phone] Ralf Gastelum MD Unavailable [phone] Gretchen Juan MD Unavailable [phone] Katherine Snow PA-C Unavailable [phone] Per Leahy PA-C Unavailable [phone] Encounter Details Date Type Department Care Team Description 04/05/2023 Entry Engineer Report Medical Records [address] [place] [address] Evelio Smith Social History Tobacco Use Types [...] filedocumented in this encounter Care Teams Sales Ambassador Relationship Specialty Start Date End Date Mily Lawrence MD PCP - General Internal Medicine 03/09/19 Ralf Gastelum MD 300 [facility] [address] [place] [address] Specialist Cardiovascular Disease 06/08/22 Gretchen Juan MD 175 [facility] 300 [place] [address] Surgeon Neurosurgery 02/13/23 Katherine Snow PA-C 175 [facility] 300 [place] [address] Specialist Neurosurgery 02/13/23 Per Leahy PA-C 175 [facility] 300 [place] [address] Specialist Neurosurgery 02/13/23 documented as of this encounter
--- OUTSIDE RECORDS SUMMARY | 2025-02-23 16:57 | XMS_ITS | Encounter Summary ---
Author Organization [facility] Address [address] [place] [address] Care Team Providers Care Field Operations Coordinator Name Role Phone Mily Lawrence MD Primary Care Provider Ralf Gastelum MD Unavailable [phone] Gretchen Juan MD Unavailable [phone] Katherine Snow PA-C Unavailable [phone] Per Leahy PA-C Unavailable [phone] Reason for Visit * Reason Comments E-prescribe Rx Request Encounter Details Date Type Department Care Team Description 07/02/2024 Refill [facility] [address] [address] Brian Ferrari MD [address] [place] [address] E-prescribe Rx Request Social History Tobacco Use [...] replacement documented in this encounter Care Teams Field Operations Coordinator Relationship Specialty Start Date End Date Mily Lawrence MD PCP - General Internal Medicine 03/09/19 Ralf Gastelum MD 300 [facility] [address] [place] [address] Specialist Cardiovascular Disease 06/08/22 Gretchen Juan MD 175 [facility] 300 [place] [address] Surgeon Neurosurgery 02/13/23 Katherine Snow PA-C 175 [facility] 300 [place] [address] Specialist Neurosurgery 02/13/23 Per Leahy PA-C 175 [facility] [address] [place] [address] Specialist Neurosurgery 02/13/23 documented as of this encounter
--- OUTSIDE RECORDS SUMMARY | 2025-02-23 16:57 | XMS_ITS | Encounter Summary ---
Author Organization [facility] Address [address] [place] [address] Care Team Providers Care Audio Production Manager Name Role Phone Mily Lawrence MD Primary Care Provider [phone] Ralf Gastelum MD Unavailable [phone] Gretchen Juan MD Unavailable [phone] Katherine Snow PA-C Unavailable [phone] Per Leahy PA-C Unavailable [phone] Encounter Details Date Type Department Care Team Description 06/15/2024 Pt. Referral Request [facility] Tiki [address] [place] [address] Md Tiki Social History Tobacco Use Types [...] on filedocumented in this encounter Care Teams Audio Production Manager Relationship Specialty Start Date End Date Mily Lawrence MD PCP - General Internal Medicine 03/09/19 Ralf Gastelum MD 300 [facility] 154 [place] [address] Specialist Cardiovascular Disease 06/08/22 Gretchen Juan MD 175 [facility] 300 [place] [address] Surgeon Neurosurgery 02/13/23 Katherine Snow PA-C 175 [facility] 300 [place] [address] Specialist Neurosurgery 02/13/23 Per Leahy PA-C [address] [address] Specialist Neurosurgery 02/13/23 documented as of this encounter
--- OUTSIDE RECORDS SUMMARY | 2025-02-23 16:57 | XMS_ITS | Encounter Summary ---
Author Organization [facility] Address [address] [place] [address] Care Team Providers Care Parking Line Painter Name Role Phone Mily Lawrence MD Primary Care Provider +[phone] Ralf Gastelum MD Unavailable [phone] Gretchen Juan MD Unavailable [phone] Katherine Snow PA-C Unavailable [phone] Per Leahy PA-C Unavailable [phone] Reason for Visit * Reason Onset Date Comments Mychart Rx Refill 05/12/2024 Encounter Details Date Type Department Care Team Description 05/12/2024 Refill Internal Medicine - [address], [address] [place], [place] [id number] Mily Lawrence MD [address] [place] [phone] Mychart Rx Refill Social History Tobacco Use [...] PM EDTFrom: Ange Montesinos [facility]: [facility] Sent: 05/12/2024 2:15 PM EDT Subject: Medication Renewal Request Refills have been requested for the following medications: Other - [facility] 100,000 UNITS Per Gram for under breasts and belly/INTERTR[facility]O Preferred pharmacy: [id number] documented in this encounter Plan of Treatment Not on file documented as of this encounter Visit Diagnoses Not on filedocumented in this encounter Care Teams Parking Line Painter Relationship Specialty Start Date End Date Mily Lawrence MD PCP - General Internal Medicine 03/09/19 Ralf Gastelum MD 300 [facility] [address] [place] [address] Specialist Cardiovascular Disease 06/08/22 Gretchen Juan MD 175 [facility] 300 [place] [address] Surgeon Neurosurgery 02/13/23 Katherine Snow PA-C 175 [facility] 300 [place] [address] Specialist Neurosurgery 02/13/23 Per Leahy PA-C 175 [facility] 300 [place] [address] Specialist Neurosurgery 02/13/23 documented as of this encounter
--- OUTSIDE RECORDS SUMMARY | 2025-02-23 16:57 | XMS_ITS | Encounter Summary ---
Author Organization [facility] Address [address] [place] [address] Care Team Providers Care Director Industrial Relations Name Role Phone Mily Lawrence MD Primary Care Provider +[phone] Ralf Gastelum MD Unavailable [phone] Gretchen Juan MD Unavailable [phone] Katherine Snow PA-C Unavailable [phone] Per Leahy PA-C Unavailable [phone] Encounter Details Date Type Department Care Team Description 07/16/2023 Thermoscrew Operator Report Medical Records [address] [place] [address] Florina Perla MD Social History Tobacco Use [...] on filedocumented in this encounter Care Teams Director Industrial Relations Relationship Specialty Start Date End Date Mily Lawrence MD PCP - General Internal Medicine 03/09/19 Ralf Gastelum MD 300 [facility] [address] [place] [address] Specialist Cardiovascular Disease 06/08/22 Gretchen Juan MD 175 [facility] 300 [place] [address] Surgeon Neurosurgery 02/13/23 Katherine Snow PA-C 175 [facility] 300 [place] [address] Specialist Neurosurgery 02/13/23 Per Leahy PA-C 175 [facility] 300 [place] [address] Specialist Neurosurgery 02/13/23 documented as of this encounter
--- OUTSIDE RECORDS SUMMARY | 2025-02-23 16:57 | XMS_ITS | Encounter Summary ---
Author Organization [facility] Address [address] [place] [address] Care Team Providers Care Donations Attendant Name Role Phone Mily Lawrence MD Primary Care Provider +1 [phone] Ralf Gastelum MD Unavailable [phone] Gretchen Juan MD Unavailable [phone] Katherine Snow PA-C Unavailable [phone] Per Leahy PA-C Unavailable [phone] Encounter Details Date Type Department Care Team Description 05/14/2024 Pt. Non Urgent Medical Question Internal Medicine - [place] 175 [facility], [address] [place] [address] Mily Lawrence MD [address] [place] [phone] Social History Tobacco Use Types Packs/Day [...] on filedocumented in this encounter Care Teams Donations Attendant Relationship Specialty Start Date End Date Mily Lawrence MD PCP - General Internal Medicine 03/09/19 Ralf Gastelum MD 300 [facility] [address] [place] [address] Specialist Cardiovascular Disease 06/08/22 Gretchen Juan MD 175 [facility] 300 [place] [address] Surgeon Neurosurgery 02/13/23 Katherine Snow PA-C 175 [facility] 300 [place] [address] Specialist Neurosurgery 02/13/23 Per Leahy PA-C 175 [facility] 300 [place] [address] Specialist Neurosurgery 02/13/23 documented as of this encounter
--- OUTSIDE RECORDS SUMMARY | 2025-02-23 16:57 | XMS_ITS | Encounter Summary ---
Author Organization [facility] Address [address] [place] [address] Care Team Providers Care Painter Chassis Name Role Phone Mily Lawrence MD Primary Care Provider [phone] Ralf Gastelum MD Unavailable [phone] Gretchen Juan MD Unavailable [phone] Katherine Snow PA-C Unavailable [phone] Per Leahy PA-C Unavailable [phone] Encounter Details Date Type Department Care Team Description 03/13/2023 Pt. Non Urgent Medical Question Internal Medicine - [place] 175 [facility], [address] [place] [address] Mily Lawrence MD [address] [place] [phone] Social History Tobacco Use Types Packs/Day [...] filedocumented in this encounter Care Teams Painter Chassis Relationship Specialty Start Date End Date Mily Lawrence MD PCP - General Internal Medicine 03/09/19 Ralf Gastelum MD 300 [facility] [address] [place] [address] Specialist Cardiovascular Disease 06/08/22 Gretchen Juan MD 175 [facility] 300 [place] [address] Surgeon Neurosurgery 02/13/23 Katherine Snow PA-C 175 [facility] 300 [place] [address] Specialist Neurosurgery 02/13/23 Per Leahy PA-C 175 [facility] 300 [place] [address] Specialist Neurosurgery 02/13/23 documented as of this encounter
--- OUTSIDE RECORDS SUMMARY | 2025-02-23 16:58 | XMS_ITS | Encounter Summary ---
Author Organization [facility] Address [address] [place] [address] Care Team Providers Care Inspector Crystal Name Role Phone Mily Lawrence MD Primary Care Provider [phone] Ralf Gastleum MD Unavailable [phone] Gretchen Juan MD Unavailable [phone] Katherine Snow PA-C Unavailable [phone] Per Leahy PA-C Unavailable [phone] Encounter Details Date Type Department Care Team Description 06/07/2022 SCAN Cardio [facility] [address] [place] [address] Abstract, Provider Social History Tobacco Use Types [...] filedocumented in this encounter Care Teams Inspector Crystal Relationship Specialty Start Date End Date Mily Lawrence MD PCP - General Internal Medicine 03/09/19 Ralf Gastelum MD 300 [facility] [address] [place] [address] Specialist Cardiovascular Disease 06/08/22 Gretchen Juan MD 175 [facility] 300 [place] [address] Surgeon Neurosurgery 02/13/23 Katherine Snow PA-C 175 [facility] 300 [place] [address] Specialist Neurosurgery 02/13/23 Per Leahy PA-C 175 [facility] 300 [place] [address] Specialist Neurosurgery 02/13/23 documented as of this encounter
--- OUTSIDE RECORDS SUMMARY | 2025-02-23 16:58 | XMS_ITS | Encounter Summary ---
Author Organization [facility] Address [address] [place] [address] Care Team Providers Care Statistical Methods Teacher Name Role Phone Mily Lawrence MD Primary Care Provider [phone] Ralf Gastelum MD Unavailable [phone] Gretchen Juan MD Unavailable [phone] Katherine Snow PA-C Unavailable [phone] Per Leahy PA-C Unavailable [phone] Encounter Details Date Type Department Care Team Description 11/23/2021 Sand Operator Report Medical Records [address] [place] [address] Evelio Smith Social History Tobacco Use Types [...] on filedocumented in this encounter Care Teams Statistical Methods Teacher Relationship Specialty Start Date End Date Mily Lawrence MD PCP - General Internal Medicine 03/09/19 Ralf Gastelum MD 300 [facility] [address] [place] [address] Specialist Cardiovascular Disease 06/08/22 Gretchen Juan MD 175 [facility] 300 [place] [address] Surgeon Neurosurgery 02/13/23 Katherine Snow PA-C 175 [facility] 300 [place] [address] Specialist Neurosurgery 02/13/23 Per Leahy PA-C 175 [facility] 300 [place] [address] Specialist Neurosurgery 02/13/23 documented as of this encounter
--- OUTSIDE RECORDS SUMMARY | 2025-02-23 16:58 | XMS_ITS | Encounter Summary ---
Author Organization [facility] Address [address] [place] [address] Care Team Providers Care Exhaust And Muffler Repairer Name Role Phone Mily Lawrence MD Primary Care Provider [phone] Ralf Gastelum MD Unavailable [phone] Gretchen Juan MD Unavailable [phone] Katherine Snow PA-C Unavailable [phone] Per Leahy PA-C Unavailable [phone] Encounter Details Date Type Department Care Team Description 09/19/2023 Commission Agent Livestock Report Medical Records [address] [place] [address] Oliver Blank Social History Tobacco Use Types [...] on filedocumented in this encounter Care Teams Exhaust And Muffler Repairer Relationship Specialty Start Date End Date Mily Lawrence MD PCP - General Internal Medicine 03/09/19 Ralf Gastelum MD 300 [facility] [address] [place] [address] Specialist Cardiovascular Disease 06/08/22 Gretchen Juan MD 175 [facility] 300 [place] [address] Surgeon Neurosurgery 02/13/23 Katherine Snow PA-C 175 [facility] 300 [place] [address] Specialist Neurosurgery 02/13/23 Per Leahy PA-C 175 [facility] 300 [place] [address] Specialist Neurosurgery 02/13/23 documented as of this encounter
--- OUTSIDE RECORDS SUMMARY | 2025-02-23 16:58 | XMS_ITS | Encounter Summary ---
Author Organization [facility] Address [address] [place] [address] Care Team Providers Care Search Analyst Name Role Phone Mily Lawrence MD Primary Care Provider Ralf Gastelum MD Unavailable [phone] Gretchen Juan MD Unavailable [phone] Katherine Snow PA-C Unavailable [phone] Per Leahy PA-C Unavailable [phone] Reason for Visit * Reason Comments E-prescribe Rx Request Encounter Details Date Type Department Care Team Description 08/04/2024 Refill [facility] [address] [address] Brian Ferrari MD [address] [place] [address] E-prescribe Rx Request Social History Tobacco Use [...] Sciatica documented in this encounter Care Teams Search Analyst Relationship Specialty Start Date End Date Mily Lawrence MD PCP - General Internal Medicine 03/09/19 Ralf Gastelum MD 300 [facility] 154 [place] [address] Specialist Cardiovascular Disease 06/08/22 Gretchen Juan MD [address] [address] Surgeon Neurosurgery 02/13/23 Katherine Snow PA-C [address] [address] Specialist Neurosurgery 02/13/23 Per Leahy PA-C [address] [address] Specialist Neurosurgery 02/13/23 documented as of this encounter
--- OUTSIDE RECORDS SUMMARY | 2025-02-23 16:58 | XMS_ITS | Encounter Summary ---
Author Organization [facility] Address [address] [place] [address] Care Team Providers Care Customs Brokerage Agent Name Role Phone Mily Lawrence MD Primary Care Provider Ralf Gastelum MD Unavailable [phone] Gretchen Juan MD Unavailable [phone] Katherine Snow PA-C Unavailable [phone] Per Leahy PA-C Unavailable [phone] Reason for Visit * Reason Onset Date Comments Medication 08/14/2022 Encounter Details Date Type Department Care Team Description 08/14/2022 Telephone [facility] [address] [address] Ralf Phoenix DPM [address] [address] Medication Social History Tobacco Use Types Packs/Day [...] encounter Miscellaneous Notes * Telephone Encounter - Jaida Phillips - 08/15/2022 9:46 AM EDT Called patient she made a FU appt on 09/03 at 3:[address] Phoenix. * Telephone Encounter - Jaida Phillips - 08/14/2022 2:51 PM EDT Received call from patient stating that when she was here for a recent visit with her mother, she states that Dr Phoenix told her, he would send a script for the Compound Cream for her as well as her mother, , but she states she checked with [facility] and they don't have a script for her. Please advise. She was last seen on 04/04 and has no F/U appt. Please advise. Please call patient with any questions at [phone]. Thanks. documented in this encounter Plan of Treatment Not on file documented as of this encounter Visit Diagnoses Not on filedocumented in this encounter Care Teams Customs Brokerage Agent Relationship Specialty Start Date End Date Mily Lawrence MD PCP - General Internal Medicine 03/09/19 Ralf Gastelum MD [address] [place] [address] Specialist Cardiovascular Disease 06/08/22 Gretchen Juan MD [address] [address] Surgeon Neurosurgery 02/13/23 Katherine Snow PA-C [address] [address] Specialist Neurosurgery 02/13/23 Per Leahy PA-C 175 [facility] [address] [place] [address] Specialist Neurosurgery 02/13/23 documented as of this encounter
--- OUTSIDE RECORDS SUMMARY | 2025-02-23 16:58 | XMS_ITS | Encounter Summary ---
Author Organization [facility] Address [address] [place] [address] Care Team Providers Care Podiatrist Name Role Phone Mily Lawrence MD Primary Care Provider [phone] Ralf Gastelum MD Unavailable [phone] Gretchen Juan MD Unavailable [phone] Katherine Snow PA-C Unavailable [phone] Per Leahy PA-C Unavailable [phone] Reason for Visit * Reason Onset Date Comments refill request 04/26/2022 Encounter Details Date Type Department Care Team Description 04/26/2022 Refill Internal Medicine - [address], [address] [place] [address] Mily Lawrence MD [address] [place] [phone] refill request Social History Tobacco Use [...] NO Patients current insurance carrier is: Payor: [employer] / [facility] Di[facility] / Product Type: HMO [id number] documented in this encounter Plan of Treatment Not on file documented as of this encounter Visit Diagnoses Not on filedocumented in this encounter Care Teams Podiatrist Relationship Specialty Start Date End Date Mily Lawrence MD PCP - General Internal Medicine 03/09/19 Ralf Gastelum MD 300 [facility] 154 [place] [address] Specialist Cardiovascular Disease 06/08/22 Gretchen Juan MD [address] [address] Surgeon Neurosurgery 02/13/23 Katherine Snow PA-C [address] [address] Specialist Neurosurgery 02/13/23 Per Leahy PA-C [address] [address] Specialist Neurosurgery 02/13/23 documented as of this encounter
--- OUTSIDE RECORDS SUMMARY | 2025-02-23 16:58 | XMS_ITS | Encounter Summary ---
Author Organization [facility] Address [address] [place] [address] Care Team Providers Care Central Office Operator Supervisor Name Role Phone Mily Lawrence MD Primary Care Provider Ralf Gastelum MD Unavailable [phone] Gretchen Juan MD Unavailable [phone] Katherine Snow PA-C Unavailable [phone] Per Leahy PA-C Unavailable [phone] Encounter Details Date Type Department Care Team Description 02/03/2024 Pt. Non Urgent Medical Question [facility] [address] [phone] Ralf Phoenix DPM [address] [id number] Social History Tobacco Use Types Packs/Day Years [...] on filedocumented in this encounter Care Teams Central Office Operator Supervisor Relationship Specialty Start Date End Date Mily Lawrence MD PCP - General Internal Medicine 03/09/19 Ralf Gastelum MD 300 [facility] 154 [place] [address] Specialist Cardiovascular Disease 06/08/22 Gretchen Juan MD 175 [facility] 300 [place] [address] Surgeon Neurosurgery 02/13/23 Katherine Snow PA-C 175 [facility] 300 [place] [address] Specialist Neurosurgery 02/13/23 Per Leahy PA-C 175 [facility] 300 [place] [address] Specialist Neurosurgery 02/13/23 documented as of this encounter
--- OUTSIDE RECORDS SUMMARY | 2025-02-23 16:58 | XMS_ITS | Encounter Summary ---
Author Organization [facility] Address [address] [place] [address] Care Team Providers Care Actuarial Intern Name Role Phone Mily Lawrence MD Primary Care Provider [phone] Ralf Gastelum MD Unavailable [phone] Gretchen Juan MD Unavailable [phone] Katherine Snow PA-C Unavailable [phone] Per Leahy PA-C Unavailable [phone] Reason for Visit * Reason Comments E-prescribe Rx Request Encounter Details Date Type Department Care Team Description 03/12/2021 Refill Internal Medicine - [address], [address] [place] [address] Mily Lawrence MD [address] [place] [address] E-prescribe Rx Request Social History Tobacco [...] EDT LOGAN 01/04/2021 05/10/2021 Last filled 12/30/20 CLEANER AND PREPARER printed and placed on your desk * [...] unspecified documented in this encounter Care Teams Actuarial Intern Relationship Specialty Start Date End Date Mily Lawrence MD PCP - General Internal Medicine 03/09/19 Ralf Gastelum MD 300 [facility] [address] [place] [address] Specialist Cardiovascular Disease 06/08/22 Gretchen Juan MD 175 [facility] 300 [place] [address] Surgeon Neurosurgery 02/13/23 Katherine Snow PA-C [address] [address] Specialist Neurosurgery 02/13/23 Per Leahy PA-C [address] [address] Specialist Neurosurgery 02/13/23 documented as of this encounter
--- OUTSIDE RECORDS SUMMARY | 2025-02-23 16:58 | XMS_ITS | Encounter Summary ---
Author Organization [facility] Address [address] [place] [address] Care Team Providers Care Mixer Whipped Topping Name Role Phone Mily Lawrence MD Primary Care Provider Ralf Gastelum MD Unavailable [phone] Gretchen Juan MD Unavailable [phone] Katherine Snow PA-C Unavailable [phone] Per Leahy PA-C Unavailable [phone] Reason for Visit * Reason Comments E-prescribe Rx Request Encounter Details Date Type Department Care Team Description 08/20/2024 Refill [facility] [address] [address] Brian Ferrari MD [address] [place] [address] E-prescribe Rx Request Social History Tobacco Use [...] Sciatica documented in this encounter Care Teams Mixer Whipped Topping Relationship Specialty Start Date End Date Mily Lawrence MD PCP - General Internal Medicine 03/09/19 Ralf Gastelum MD 300 [facility] 154 [place] [address] Specialist Cardiovascular Disease 06/08/22 Gretchen Juan MD [address] [address] Surgeon Neurosurgery 02/13/23 Katherine Snow PA-C [address] [address] Specialist Neurosurgery 02/13/23 Per Leahy PA-C [address] [address] Specialist Neurosurgery 02/13/23 documented as of this encounter
--- OUTSIDE RECORDS SUMMARY | 2025-02-23 16:58 | XMS_ITS | Encounter Summary ---
Author Organization [facility] Address [address] [place] [address] Care Team Providers Care Retail Field Merchandiser Name Role Phone Mily Lawrence MD Primary Care Provider Ralf Gastelum MD Unavailable [phone] Gretchen Juan MD Unavailable [phone] Katherine Snow PA-C Unavailable [phone] Per Leahy PA-C Unavailable [phone] Reason for Visit * Reason Onset Date Comments Form 01/02/2024 Encounter Details Date Type Department Care Team Description 01/02/2024 Telephone [facility] [address] [address] Brian Ferrari MD [address] [address] Form Social History Tobacco Use Types Packs/Day [...] PM EDT I faxed the form to the [facility] * Telephone Encounter - Sussy Mcgill [...] questions and/or when item(s) are available to continuous pickling line pickler helper: [phone]. Thanks, DH documented in this encounter Plan of Treatment Not on file documented as of this encounter Visit Diagnoses Not on filedocumented in this encounter Care Teams Retail Field Merchandiser Relationship Specialty Start Date End Date Mily Lawrence MD PCP - General Internal Medicine 03/09/19 Ralf Gastelum MD 300 [place] [address] Specialist Cardiovascular Disease 06/08/22 Gretchen Juan MD [address] [id number] Surgeon Neurosurgery 02/13/23 Katherine Snow PA-C [address] [address] Specialist Neurosurgery 02/13/23 Pre Leahy PA-C 175 [facility] [address] [place] [address] Specialist Neurosurgery 02/13/23 documented as of this encounter
--- OUTSIDE RECORDS SUMMARY | 2025-02-23 16:58 | XMS_ITS | Continuity of Care Document ---
Author Organization [facility] Address [address] [place] [address] Phone Care Team Providers Care Share Dairy Farmer Name Role Phone Ryan Duran MD Unavailable Unavailable Procedures Procedure Date [employer] Sales tax [employer] Advance Directives Directive Yes / No Effective Date File Name No Information Encounters Encounter Description Practice Location Reason(s) For Visit Diagnoses Date Provider Providers Copied on Encounter Dermatology [facility], [address] [place] [address], [address] [place] [address], tel:[phone] [facility] No Information Renee Davis. [address] [place] [address], [address] [place] [address] , . tel: [phone] Dermatology [facility], [address] [place] [address], [id number], tel:[phone] [facility] Location No Information Renee Davis. [address] [place] [address], [id number] , . tel: [phone] Dermatology [facility], [address] [place] [address], [address] [place] [address], tel:[phone] [facility] No Information Renee Davis. [address] [place] [address], [place], [place], [id number] , . tel: [phone] Family History Family Member Type Diagnosis Age [...]
--- OUTSIDE RECORDS SUMMARY | 2025-02-23 16:58 | XMS_ITS | Encounter Summary ---
Author Organization [facility] Address [address] [place] [address] Care Team Providers Care Senior Painter Name Role Phone Mily Lawrence MD Primary Care Provider [phone] Ralf Gastelum MD Unavailable [phone] Gretchen Juan MD Unavailable [phone] Katherine Snow PA-C Unavailable [phone] Per Leahy PA-C Unavailable [phone] Reason for Visit * Reason Comments E-prescribe Rx Request Encounter Details Date Type Department Care Team Description 01/30/2021 Refill Internal Medicine [address], [address] [place] [address] Mily Lawrence MD [address] [place] [address] E-prescribe Rx Request Social History Tobacco [...] filedocumented in this encounter Care Teams Senior Painter Relationship Specialty Start Date End Date Mily Lawrence MD PCP - General Internal Medicine 03/09/19 Ralf Gastelum MD 300 [facility] [address] [place] [address] Specialist Cardiovascular Disease 06/08/22 Gretchen Juan MD 175 [facility] 300 [place] [address] Surgeon Neurosurgery 02/13/23 Katherine Snow PA-C 175 [facility] 300 [place] [address] Specialist Neurosurgery 02/13/23 Per Leahy PA-C 175 [facility] 300 [place] [address] Specialist Neurosurgery 02/13/23 documented as of this encounter
--- OUTSIDE RECORDS SUMMARY | 2025-02-23 16:58 | XMS_ITS | Encounter Summary ---
Author Organization [facility] Address [address] [place] [address] Care Team Providers Care Sec Reporting Consultant Name Role Phone Mily Lawrence MD Primary Care Provider [phone] Ralf Gastelum MD Unavailable [phone] Gretchen Juan MD Unavailable [phone] Katherine Snow PA-C Unavailable [phone] Per Leahy PA-C Unavailable [phone] Encounter Details Date Type Department Care Team Description 06/13/2022 SCAN Medical Records [address] [place] [address] Sravanthi Doss Social History Tobacco Use Types [...] on filedocumented in this encounter Care Teams Sec Reporting Consultant Relationship Specialty Start Date End Date Mily Lawrence MD PCP - General Internal Medicine 03/09/19 Ralf Gastelum MD 300 [facility] 154 [place] [address] Specialist Cardiovascular Disease 06/08/22 Gretchen Juan MD [address] [address] Surgeon Neurosurgery 02/13/23 Katherine Snow PA-C [address] [address] Specialist Neurosurgery 02/13/23 Per Leahy PA-C [address] [address] Specialist Neurosurgery 02/13/23 documented as of this encounter
--- OUTSIDE RECORDS SUMMARY | 2025-02-23 16:58 | XMS_ITS | Encounter Summary ---
Author Organization [facility] Address [address] [place] [address] Care Team Providers Care Zipper Sewing Machine Operator Name Role Phone Mily Lawrence MD Primary Care Provider [phone] Ralf Gastelum MD Unavailable [phone] Gretchen Juan MD Unavailable [phone] Katherine Snow PA-C Unavailable [phone] Per Leahy PA-C Unavailable [phone] Encounter Details Date Type Department Care Team Description 07/22/2020 Telephone Adult [address] [id number] Mily Lawrence MD [address] [place] [phone] Social History Tobacco Use Types Packs/Day [...] on filedocumented in this encounter Care Teams Zipper Sewing Machine Operator Relationship Specialty Start Date End Date Mily Lawrence MD PCP - General Internal Medicine 03/09/19 Ralf Gastelum MD [address] [address] Specialist Cardiovascular Disease 06/08/22 Gretchen Juan MD [address] [address] Surgeon Neurosurgery 02/13/23 Katherine Snow PA-C [address] [address] Specialist Neurosurgery 02/13/23 Per Leahy PA-C [address] [address] Specialist Neurosurgery 02/13/23 documented as of this encounter
--- OUTSIDE RECORDS SUMMARY | 2025-02-23 16:58 | XMS_ITS | Encounter Summary ---
Author Organization [facility] Address [address] [place] [address] Care Team Providers Care Business Continuity Director Name Role Phone Mily Lawrence MD Primary Care Provider [phone] Ralf Gastelum MD Unavailable [phone] Gretchen Juan MD Unavailable [phone] Katherine Snow PA-C Unavailable [phone] Per Leahy PA-C Unavailable [phone] Encounter Details Date Type Department Care Team Description 09/26/2020 Orders Only Medical Records [address] [place] [address] Guillaume Casey MD Social History Tobacco Use [...] filedocumented in this encounter Care Teams Business Continuity Director Relationship Specialty Start Date End Date Mily Lawrence MD PCP - General Internal Medicine 03/09/19 Ralf Gastelum MD 300 [facility] [address] [place] [address] Specialist Cardiovascular Disease 06/08/22 Gretchen Juan MD 175 [facility] 300 [place] [address] Surgeon Neurosurgery 02/13/23 Katherine Snow PA-C 175 [facility] 300 [place] [address] Specialist Neurosurgery 02/13/23 Per Leahy PA-C 175 [facility] 300 [place] [address] Specialist Neurosurgery 02/13/23 documented as of this encounter
--- OUTSIDE RECORDS SUMMARY | 2025-02-23 16:58 | XMS_ITS | Encounter Summary ---
Author Organization [facility] Address [address] [place] [address] Care Team Providers Care Dental Assistant Name Role Phone Mily Lawrence MD Primary Care Provider +[phone] Ralf Gastelum MD Unavailable [phone] Gretchen Juan MD Unavailable [phone] Katherine Snow PA-C Unavailable [phone] Per Leahy PA-C Unavailable [phone] Encounter Details Date Type Department Care Team Description 11/02/2020 Orders Only Medical Records [address] [place] [address] Mily Lawrence MD [address] [place] [phone] Social History Tobacco Use Types Packs/Day [...] on filedocumented in this encounter Care Teams Dental Assistant Relationship Specialty Start Date End Date Mily Lawrence MD PCP - General Internal Medicine 03/09/19 Ralf Gastelum MD 300 [facility] [address] [place] [address] Specialist Cardiovascular Disease 06/08/22 Gretchen Juan MD [address] [address] Surgeon Neurosurgery 02/13/23 Katherine Snow PA-C 175 [facility] 300 [place] [address] Specialist Neurosurgery 02/13/23 Per Leahy PA-C 175 [facility] 300 [place] [address] Specialist Neurosurgery 02/13/23 documented as of this encounter
--- OUTSIDE RECORDS SUMMARY | 2025-02-23 16:58 | XMS_ITS | Encounter Summary ---
Author Organization [facility] Address [address] [place] [address] Care Team Providers Care Medical Records Assistant Name Role Phone Mily Lawrence MD Primary Care Provider [phone] Ralf Gastelum MD Unavailable [phone] Gretchen Juan MD Unavailable [phone] Katherine Snow PA-C Unavailable [phone] Per Leahy PA-C Unavailable [phone] Encounter Details Date Type Department Care Team Description 09/12/2022 Quality Cloth Tester Report Medical Records [address] [place] [address] Evelio Smith Social History Tobacco Use Types [...] on filedocumented in this encounter Care Teams Medical Records Assistant Relationship Specialty Start Date End Date Mily Lawrence MD PCP - General Internal Medicine 03/09/19 Ralf Gastelum MD 300 [facility] [address] [place] [address] Specialist Cardiovascular Disease 06/08/22 Gretchen Juan MD 175 [facility] 300 [place] [address] Surgeon Neurosurgery 02/13/23 Katherine Snow PA-C 175 [facility] 300 [place] [address] Specialist Neurosurgery 02/13/23 Per Leahy PA-C 175 [facility] 300 [place] [address] Specialist Neurosurgery 02/13/23 documented as of this encounter
--- OUTSIDE RECORDS SUMMARY | 2025-02-23 16:58 | XMS_ITS | Clinical Summary ---
Author Organization [facility] Address [address] [place] [address] Care Team Providers Care Transition Social Worker Name Role Phone Mily Lawrence MD Primary Care Provider [phone] Allergies Active Allergy Reactions Criticality Noted Date [...] this topic Medical Devices Implanted Type Area Recruitment Internship Device Identifier Shelf Expiration Date Model / Serial / Lot Putty Vesuvius 100 5ml Stry-K2m [id number] - [id number] Implanted:Qty: 1 on 07/16/2024 by Nathan Hayward MD at [facility] Lateral: Spine Lumbar LAXMI SPINE 02/17/2027 [id number] / [id number] / Bone Graft Spine Infus Xsm Medt-Sofa [id number] - [id number] Implanted:Qty: 1 on 07/16/2024 by Nathan Hayward MD at [facility] Med Lateral: Spine Lumbar [employer] SOFAMOR DANEK 11/20/2025 [id number] / / [id number] [place] Interbody System Implanted:Qty: 1 on 07/16/2024 by Nathan Hayward MD at [facility] Med Lateral: Spine Lumbar LAXMI - MEDICAL 10/30/2028 [id number] / / [id number] Plate [facility] 2hl 18mm Stry-K2m [id number] - [id number] Implanted:Qty: 1 on 07/16/2024 by Nathan Hayward MD at [facility] Med Lateral: Spine Lumbar LAXMI SPINE [id number] / / 5.0x40mm Screw Implanted:Qty: 2 on 07/16/2024 by Nathan Hayward MD at [facility] Med Lateral: Spine Lumbar LAXMI - MEDICAL [id number] / / Plate Assembly Screw Implanted:Qty: 1 on 07/16/2024 by Nathan Hayward MD at [facility] Med Lateral: Spine Lumbar LAXMI - MEDICAL [id number] / / Advance Directives For more information, please contact: [phone] Latest Code Status on File Code Status [...] way: discussion with patient . Care Teams Transition Social Worker Relationship Specialty Start Date End Date Mily Lawrence MD [address] [place] [phone] PCP - General Internal Medicine 06/12/17
--- OUTSIDE RECORDS SUMMARY | 2025-02-23 16:58 | XMS_ITS | Encounter Summary ---
Author Organization [facility] Address [address] [place] [address] Care Team Providers Care Principal Cyber Engineer Name Role Phone Mily Lawrence MD Primary Care Provider [phone] Ralf Gastelum MD Unavailable [phone] Gretchen Juan MD Unavailable [phone] Katherine Snow PA-C Unavailable [phone] Per Leahy PA-C Unavailable [phone] Encounter Details Date Type Department Care Team Description 04/11/2022 Hospital Medical Records [address] [place] [address] Maye Hamilton MD [address] [place] [address] [id number] Social History Tobacco Use Types Packs/Day Years [...] on filedocumented in this encounter Care Teams Principal Cyber Engineer Relationship Specialty Start Date End Date Mily Lawrence MD PCP - General Internal Medicine 03/09/19 Ralf Gastelum MD 300 [facility] 154 [place] [address] Specialist Cardiovascular Disease 06/08/22 Gretchen Juan MD [address] [address] Surgeon Neurosurgery 02/13/23 Katherine Snow PA-C [address] [address] Specialist Neurosurgery 02/13/23 Per Leahy PA-C [address] [address] Specialist Neurosurgery 02/13/23 documented as of this encounter
--- OUTSIDE RECORDS SUMMARY | 2025-02-23 16:58 | XMS_ITS | Encounter Summary ---
Author Organization [facility] Address [address] [place] [address] Care Team Providers Care Exploration Manager Name Role Phone Mily Lawrence MD Primary Care Provider [phone] Ralf Gastelum MD Unavailable [phone] Gretchen Juan MD Unavailable [phone] Katherine Snow PA-C Unavailable [phone] Per Leahy PA-C Unavailable [phone] Encounter Details Date Type Department Care Team Description 03/22/2021 [facility] Medical Records [address] [place] [address] Abstract, Provider Social History Tobacco Use Types [...] on filedocumented in this encounter Care Teams Exploration Manager Relationship Specialty Start Date End Date Mily Lawrence MD PCP - General Internal Medicine 03/09/19 Ralf Gastelum MD 300 [facility] [address] [place] [address] Specialist Cardiovascular Disease 06/08/22 Gretchen Juan MD 175 [facility] 300 [place] [address] Surgeon Neurosurgery 02/13/23 Katherine Snow PA-C 175 [facility] 300 [place] [address] Specialist Neurosurgery 02/13/23 Per Leahy PA-C 175 [facility] 300 [place] [address] Specialist Neurosurgery 02/13/23 documented as of this encounter
--- OUTSIDE RECORDS SUMMARY | 2025-02-23 16:58 | XMS_ITS | Encounter Summary ---
Author Organization [facility] Address [address] [place] [address] Care Team Providers Care Data Administrator Name Role Phone Mily Lawrence MD Primary Care Provider [phone] Ralf Gastelum MD Unavailable [phone] Gretchen Juan MD Unavailable [phone] Katherine Snow PA-C Unavailable [phone] Per Leahy PA-C Unavailable [phone] Encounter Details Date Type Department Care Team Description 2020 Telephone Internal Medicine - [address], [address] [place] [address] Mily Lawrence MD [address] [place] [phone] Social History Tobacco Use Types Packs/Day [...] filedocumented in this encounter Care Teams Data Administrator Relationship Specialty Start Date End Date Mily Lawrence MD PCP - General Internal Medicine 03/09/19 Ralf Gastelum MD 300 [facility] [address] [place] [address] Specialist Cardiovascular Disease 06/08/22 Gretchen Juan MD 175 [facility] 300 [place] [address] Surgeon Neurosurgery 02/13/23 Katherine Snow PA-C 175 [facility] 300 [place] [address] Specialist Neurosurgery 02/13/23 Per Leahy PA-C [address] [place] [address] [address] [place] [address] Specialist Neurosurgery 02/13/23 documented as of this encounter
--- OUTSIDE RECORDS SUMMARY | 2025-02-23 16:58 | XMS_ITS | Encounter Summary ---
Author Organization [facility] Address [address] [place] [address] Care Team Providers Care Steel Pan Form Placing Supervisor Name Role Phone Mily Lawrence MD Primary Care Provider [phone] Ralf Gastelum MD Unavailable [phone] Gretchen Jaun MD Unavailable [phone] Katherine Snow PA-C Unavailable [phone] Per Leahy PA-C Unavailable [phone] Reason for Visit * Reason Onset Date Comments Call From Pharmacy 08/18/2024 Encounter Details Date Type Department Care Team Description 08/18/2024 Telephone Internal Medicine - [address], [address] [place], [place] [id number] Mily Lawrence MD [address] [place] [phone] Call From Pharmacy Social History Tobacco [...] - 08/18/2024 12:38 PM EDT Lidia from [facility] pharmacy called to get clarification on atorvastatin and lisinopril to see if the patient is still taking these medication. Please advise Cb# [phone] documented in this encounter Plan of Treatment Not on file documented as of this encounter Visit Diagnoses Not on filedocumented in this encounter Care Teams Steel Pan Form Placing Supervisor Relationship Specialty Start Date End Date Mily Lawrence MD PCP - General Internal Medicine 03/09/19 Ralf Gastelum MD 300 [facility] [address] [place] [address] Specialist Cardiovascular Disease 06/08/22 Gretchen Juan MD 175 [facility] 300 [place] [address] Surgeon Neurosurgery 02/13/23 Katherine Snow PA-C 175 [facility] 300 [place] [address] Specialist Neurosurgery 02/13/23 Per Leahy PA-C 175 [facility] 300 [place] [address] Specialist Neurosurgery 02/13/23 documented as of this encounter
--- OUTSIDE RECORDS SUMMARY | 2025-02-23 16:58 | XMS_ITS | Encounter Summary ---
Author Organization [facility] Address [address] [place] [address] Care Team Providers Care Pattern Data Operator Name Role Phone Mily Lawrence MD Primary Care Provider [phone] Ralf Gastelum MD Unavailable [phone] Gretchen Juan MD Unavailable [phone] Katherine Snow PA-C Unavailable [phone] Per Leahy PA-C Unavailable [phone] Reason for Visit * Reason Onset Date Comments Dietary Supervisor Feedback 01/10/2022 Dr. Perla Encounter Details Date Type Department Care Team Description 01/10/2022 Telephone Internal Medicine - [address], [address] [place], [place] [id number] Mily Lawrence MD [address] [place] [phone] Dietary Supervisor Feedback (Dr. Perla) Social History Tobacco Use [...] that Dr. Perla is also working on [address] [place] [address] and would like the referral to be sent there instead. As it will be closer to patient location. documented in this encounter Plan of Treatment Not on file documented as of this encounter Visit Diagnoses Not on filedocumented in this encounter Care Teams Pattern Data Operator Relationship Specialty Start Date End Date Mily Lawrence MD PCP - General Internal Medicine 03/09/19 Ralf Gastelum MD 300 [facility] [address] [place] [address] Specialist Cardiovascular Disease 06/08/22 Gretchen Juan MD 175 [facility] 300 [place] [address] Surgeon Neurosurgery 02/13/23 Katherine Snow PA-C 175 [facility] 300 [place] [address] Specialist Neurosurgery 02/13/23 Per Leahy PA-C 175 [facility] 300 [place] [address] Specialist Neurosurgery 02/13/23 documented as of this encounter
--- OUTSIDE RECORDS SUMMARY | 2025-02-23 16:58 | XMS_ITS | Encounter Summary ---
Author Organization [facility] Address [address] [place] [address] Care Team Providers Care Fruit Raiser Name Role Phone Mily Larwence MD Primary Care Provider [phone] Ralf Gastelum MD Unavailable [phone] Gretchen Juan MD Unavailable [phone] Katherine Snow PA-C Unavailable [phone] Per Leahy PA-C Unavailable [phone] Reason for Visit * Reason Comments E-prescribe Rx Request Encounter Details Date Type Department Care Team Description 04/28/2021 Refill Internal Medicine - [address], [address] [place] [address] Mily Lawrence MD [address] [place] [phone] E-prescribe Rx Request Social History Tobacco [...] filedocumented in this encounter Care Teams Fruit Raiser Relationship Specialty Start Date End Date Mily Lawrence MD PCP - General Internal Medicine 03/09/19 Ralf Gastelum MD 300 [facility] [address] [place] [address] Specialist Cardiovascular Disease 06/08/22 Gretchen Juan MD 175 [facility] 300 [place] [address] Surgeon Neurosurgery 02/13/23 Katherine Snow PA-C [address] [address] Specialist Neurosurgery 02/13/23 Per Leahy PA-C [address] [address] Specialist Neurosurgery 02/13/23 documented as of this encounter
--- OUTSIDE RECORDS SUMMARY | 2025-02-23 16:58 | XMS_ITS | Encounter Summary ---
Author Organization [facility] Address [address] [place] [address] Care Team Providers Care Medic Technician Name Role Phone Mily Lawrence MD Primary Care Provider [phone] Ralf Gastelum MD Unavailable [phone] Gretchen Juan MD Unavailable [phone] Katherine Snow PA-C Unavailable [phone] Per Leahy PA-C Unavailable [phone] Reason for Visit * Reason Onset Date Comments Medication 02/27[facility]2024 [facility] Encounter Details Date Type Department Care Team Description 02/27/2024 Telephone Internal Medicine - [address], [address] [place] [address] Mily Lawrence MD [address] [place] [phone] Medication (Stay with [facility]Not Isa) Social History Tobacco Use Types [...] regarding pharmacies and would like tostay with [facility] on [address] Please keep patient's scripts at [facility] - [address] [place] [address] * Telephone Encounter - Sharmila Campbell - 02/27/2024 3:56 PM EDT Faxing waiting on confirmation * Telephone Encounter - Brenda Kearney - 02/27/2024 11:27 AM EDT Received call from [facility] requested updated medlist and scrpits. Patient was seen on 02/06/24 during visited reported pharmacy will need new scripts and med list. Fax to: [phone] documented in this encounter Plan of Treatment Not on file documented as of this encounter Visit Diagnoses Not on filedocumented in this encounter Care Teams Medic Technician Relationship Specialty Start Date End Date Mily Lawrence MD PCP - General Internal Medicine 03/09/19 Ralf Gastelum MD [address] [place] [address] Specialist Cardiovascular Disease 06/08/22 Gretchen Juan MD [address] [address] Surgeon Neurosurgery 02/13/23 Katherine Snow PA-C [address] [address] Specialist Neurosurgery 02/13/23 Per Leahy PA-C [address] [address] Specialist Neurosurgery 02/13/23 documented as of this encounter
--- OUTSIDE RECORDS SUMMARY | 2025-02-23 16:58 | XMS_ITS | Encounter Summary ---
Author Organization [facility] Address [address] [place] [address] Care Team Providers Care Mobile Sales Consultant Name Role Phone Mily Lawrence MD Primary Care Provider [phone] Ralf Gastelum MD Unavailable [phone] Gretchen Juan MD Unavailable [phone] Katherine Snow PA-C Unavailable [phone] Per Leahy PA-C Unavailable [phone] Reason for Visit * Reason Onset Date Comments refill request 03/19/2024 Encounter Details Date Type Department Care Team Description 03/19/2024 Refill Internal Medicine - [address], [address] [place] [address] Mily Lawrence MD [address] [place] [phone] refill request Social History Tobacco Use [...] on filedocumented in this encounter Care Teams Mobile Sales Consultant Relationship Specialty Start Date End Date Mily Lawrence MD PCP - General Internal Medicine 03/09/19 Ralf Gastelum MD 300 [facility] 154 [place] [address] Specialist Cardiovascular Disease 06/08/22 Gretchen Juan MD 175 [facility] 300 [place] [address] Surgeon Neurosurgery 02/13/23 Katherine Snow PA-C [address] [address] Specialist Neurosurgery 02/13/23 Per Leahy PA-C [address] [address] Specialist Neurosurgery 02/13/23 documented as of this encounter
--- OUTSIDE RECORDS SUMMARY | 2025-02-23 16:58 | XMS_ITS | Encounter Summary ---
Author Organization [facility] Address [address] [place] [address] Care Team Providers Care Conservation Or Heritage Architect Name Role Phone Mily Lawrence MD Primary Care Provider Ralf Gastelum MD Unavailable [phone] Gretchen Juan MD Unavailable [phone] Katherine Snow PA-C Unavailable [phone] Per Leahy PA-C Unavailable [phone] Reason for Visit * Reason Onset Date Comments Medication 01/27/2024 Encounter Details Date Type Department Care Team Description 01/27/2024 Telephone [facility] [address] [address] Brian Ferrari MD [address] [address] Medication Social History Tobacco Use Types Packs/Day [...] on filedocumented in this encounter Care Teams Conservation Or Heritage Architect Relationship Specialty Start Date End Date Mily Lawrence MD PCP - General Internal Medicine 03/09/19 Ralf Gastelum MD 300 [facility] [address] [place] [address] Specialist Cardiovascular Disease 06/08/22 Gretchen Juan MD 175 [facility] 300 [place] [address] Surgeon Neurosurgery 02/13/23 Katherine Snow PA-C 175 [facility] 300 [place] [address] Specialist Neurosurgery 02/13/23 Per Leahy PA-C 175 [facility] 300 [place] [address] Specialist Neurosurgery 02/13/23 documented as of this encounter
--- OUTSIDE RECORDS SUMMARY | 2025-02-23 16:58 | XMS_ITS | Encounter Summary ---
Author Organization [facility] Address [address] [place] [address] Care Team Providers Care Senior Designer/Art Director Name Role Phone Mily Lawrence MD Primary Care Provider [phone]- [phone] Ralf Gastelum MD Unavailable [phone] Gretchen Juan MD Unavailable [phone] Katherine Snow PA-C Unavailable [phone] Per Leahy PA-C Unavailable [phone] Reason for Visit * Reason Comments E-prescribe Rx Request Encounter Details Date Type Department Care Team Description [facility] [address] [place] [address] Alejandro Sibley MD [address] [place] [address] E-prescribe Rx Request Social History Tobacco Use [...] filedocumented in this encounter Care Teams Senior Designer/Art Director Relationship Specialty Start Date End Date Mily Lawrence MD PCP - General Internal Medicine 03/09/19 Ralf Gastelum MD 300 [facility] [address] [place] [address] Specialist Cardiovascular Disease 06/08/22 Gretchen Juan MD [address] [address] Surgeon Neurosurgery 02/13/23 Katherine Snow PA-C [address] [address] Specialist Neurosurgery 02/13/23 Per Leahy PA-C 175 [facility] [address] [place] [address] Specialist Neurosurgery 02/13/23 documented as of this encounter
--- OUTSIDE RECORDS SUMMARY | 2025-02-23 16:58 | XMS_ITS | Encounter Summary ---
Author Organization [facility] Address [address] [place] [address] Care Team Providers Care Automotive Parts Coordinator Name Role Phone Mily Lawrence MD Primary Care Provider +[phone]- [phone] Ralf Gastelum MD Unavailable [phone] Gretchen Juan MD Unavailable [phone] Katherine Snow PA-C Unavailable [phone] Per Leahy PA-C Unavailable [phone] Encounter Details Date Type Department Care Team Description 09/08/2020 Orders Only Medical Records [address] [place] [address] Mily Lawrence MD [address] [place] [phone] Social History Tobacco Use Types Packs/Day [...] on filedocumented in this encounter Care Teams Automotive Parts Coordinator Relationship Specialty Start Date End Date Mily Lawrence MD PCP - General Internal Medicine 03/09/19 Ralf Gastelum MD 300 [facility] [address] [place] [address] Specialist Cardiovascular Disease 06/08/22 Gretchen Juan MD 175 [facility] 300 [place] [address] Surgeon Neurosurgery 02/13/23 Katherine Snow PA-C 175 [facility] 300 [place] [address] Specialist Neurosurgery 02/13/23 Per Leahy PA-C 175 [facility] 300 [place] [address] Specialist Neurosurgery 02/13/23 documented as of this encounter
--- OUTSIDE RECORDS SUMMARY | 2025-02-23 16:58 | XMS_ITS | Clinical Summary ---
Author Organization [facility] Address [address] [place] [address] Care Team Providers Care Supervisor Tree Fruit And Nut Farming Name Role Phone Mily Lawrence MD Primary Care Provider Ralf Gastelum MD Unavailable [phone] Gretchen Juan MD Unavailable [phone] Katherine Snow PA-C Unavailable [phone] Per Leahy PA-C Unavailable [phone] Allergies Active Allergy Reactions Severity Noted Date [...] then 40's; 04/2017 genetic testing negative 07/2023 [employer] hereditary breast/ovarian cancer screen NEGATIVE. There is [...] spinal instrumentation performed by Dr. Hayward at [facility] in [place]. This the surgery, she has been a patient in rehab at [address] [place] [address]. While there, she is participating in physical [...] Advance Directives For more information, please contact: [phone] Documents on File Type Date Recorded Patient Prototype Machine Operator Expl savi Health Care Proxy 02/11/2024 3:[address] [facility] CARE PROXY Care Teams Supervisor Tree Fruit [employer] Nut [employer] Relationship Specialty Start Date End Date Mily Lawrence MD PCP - General Internal Medicine 03/09/19 Ralf Gastelum MD 300 [facility] [address] [place] [address] Specialist Cardiovascular Disease 06/08/22 Gretchen Juan MD 175 [facility] 300 [place] [address] Surgeon Neurosurgery 02/13/23 Katherine Snow PA-C [address] [address] Specialist Neurosurgery 02/13/23 Per Leahy PA-C 175 [facility] 300 [place] [address] Specialist Neurosurgery 02/13/23
--- OUTSIDE RECORDS SUMMARY | 2025-02-23 16:58 | XMS_ITS | Encounter Summary ---
Author Organization [facility] Address [address] [place] [address] Care Team Providers Care Technology Infusion Specialist Name Role Phone Mily Lawrence MD Primary Care Provider [phone]- [phone] Ralf Gastelum MD Unavailable [phone] Gretchen Juan MD Unavailable [phone] Katherine Snow PA-C Unavailable [phone] Per Leahy PA-C Unavailable [phone] Encounter Details Date Type Department Care Team Description 12/10/2023 SCAN [facility] Medical [facility] 175 [facility] [address] [place] [phone] Salma Elizalde APRN Social History Tobacco Use [...] on filedocumented in this encounter Care Teams Technology Infusion Specialist Relationship Specialty Start Date End Date Mily Lawrence MD PCP - General Internal Medicine 03/09/19 Ralf Gastelum MD 300 [facility] 154 [place] [address] Specialist Cardiovascular Disease 06/08/22 Gretchen Juan MD 175 [facility] 300 [place] [address] Surgeon Neurosurgery 02/13/23 Katherine Snow PA-C 175 [facility] 300 [place] [address] Specialist Neurosurgery 02/13/23 Per Leahy PA-C 175 [facility] 300 [place] [address] Specialist Neurosurgery 02/13/23 documented as of this encounter
--- OUTSIDE RECORDS SUMMARY | 2025-02-23 16:58 | XMS_ITS | Encounter Summary ---
Author Organization [facility] Address [address] [place] [address] Care Team Providers Care Fiber Glass Worker Name Role Phone Mily Lawrence MD Primary Care Provider Ralf Gastelum MD Unavailable [phone] Gretchen Juan MD Unavailable [phone] Katherine Snow PA-C Unavailable [phone] Per Leahy PA-C Unavailable [phone] Reason for Visit * Reason Onset Date Comments Surgery (Schedule) 11/25/2023 Encounter Details Date Type Department Care Team Description 11/25/2023 Telephone [facility] [address] [address] Brian Ferrari MD [address] [address] Surgery (Schedule) Social History Tobacco Use Types [...] leg documented in this encounter Care Teams Fiber Glass Worker Relationship Specialty Start Date End Date Mily Lawrence MD PCP - General Internal Medicine 03/09/19 Ralf Gastelum MD 300 [facility] 154 [place] [address] Specialist Cardiovascular Disease 06/08/22 Gretchen Juan MD [address] [address] Surgeon Neurosurgery 02/13/23 Katherine Snow PA-C [address] [address] Specialist Neurosurgery 02/13/23 Per Leahy PA-C [address] [address] Specialist Neurosurgery 02/13/23 documented as of this encounter
--- OUTSIDE RECORDS SUMMARY | 2025-02-23 16:58 | XMS_ITS | Encounter Summary ---
Author Organization [facility] Address [address] [place] [address] Care Team Providers Care Hand Flesher Name Role Phone Mily Lawrence MD Primary Care Provider [phone]- [phone] Ralf Gastelum MD Unavailable [phone] Gretchen Juan MD Unavailable [phone] Katherine Snow PA-C Unavailable [phone] Per Leahy PA-C Unavailable [phone] Encounter Details Date Type Department Care Team Description 06/04/2022 [facility] [address] [place] [address] Md Tiki Social History Tobacco Use Types [...] filedocumented in this encounter Care Teams Hand Flesher Relationship Specialty Start Date End Date Mily Lawrence MD PCP - General Internal Medicine 03/09/19 Ralf Gastelum MD 300 [facility] [address] [place] [address] Specialist Cardiovascular Disease 06/08/22 Gretchen Juan MD 175 [facility] 300 [place] [address] Surgeon Neurosurgery 02/13/23 Katherine Snow PA-C [address] [address] Specialist Neurosurgery 02/13/23 Per Leahy PA-C [address] [address] Specialist Neurosurgery 02/13/23 documented as of this encounter
--- OUTSIDE RECORDS SUMMARY | 2025-02-23 16:58 | XMS_ITS | Encounter Summary ---
Author Organization [facility] Address [address] [place] [address] Care Team Providers Care Log Feeder Name Role Phone Mily Lawrence MD Primary Care Provider Ralf Gastelum MD Unavailable [phone] Gretchen Juan MD Unavailable [phone] Katherine Snow PA-C Unavailable [phone] Per Leahy PA-C Unavailable [phone] Encounter Details Date Type Department Care Team Description 08/18/2020 Orders Only Gastroenterology - [address] [place] [id number] Guillaume Casey MD Pelvic floor dysfunction in [...] Rectocele documented in this encounter Care Teams Log Feeder Relationship Specialty Start Date End Date Mily Lawrence MD PCP - General Internal Medicine 03/09/19 Ralf Gastelum MD 300 [facility] 154 [place] [address] Specialist Cardiovascular Disease 06/08/22 Gretchen Juan MD 175 [facility] 300 [place] [address] Surgeon Neurosurgery 02/13/23 Katherine Snow PA-C 175 [facility] 300 [place] [address] Specialist Neurosurgery 02/13/23 Per Leahy PA-C 175 [facility] 300 [place] [address] Specialist Neurosurgery 02/13/23 documented as of this encounter
--- OUTSIDE RECORDS SUMMARY | 2025-02-23 16:58 | XMS_ITS | Encounter Summary ---
Author Organization [facility] Address [address] [place] [address] Care Team Providers Care Cna Caregiver Name Role Phone Mily Lawrence MD Primary Care Provider [phone] Ralf Gastelum MD Unavailable [phone] Gretchen Juan MD Unavailable [phone] Katherine Snow PA-C Unavailable [phone] Per Leahy PA-C Unavailable [phone] Reason for Visit * Reason Onset Date Comments refill request 11/10/2021 Encounter Details Date Type Department Care Team Description 11/10/2021 Refill Internal Medicine - [address], [address] [place] [address] Mily Lawrence MD [address] [place] [phone] refill request Social History Tobacco Use [...] - 11/14/2021 11:21 AM EST Patient sees PARTICIPANT ADMINISTRATOR / will re route to appropriate provider * Telephone Encounter - Sapna Concepcion - 11/10/2021 3:12 PM EST Patient is requesting Rx for Vitamin B 1 and B 6 and black cohart for menopause. LOGAN 10/17/2021 NOV 11/21/2021 documented in this encounter Plan of Treatment Not on file documented as of this encounter Visit Diagnoses Not on filedocumented in this encounter Care Teams Cna Caregiver Relationship Specialty Start Date End Date Mily Lawrence MD PCP - General Internal Medicine 03/09/19 Ralf Gastelum MD 300 [facility] [address] [place] [address] Specialist Cardiovascular Disease 06/08/22 Gretchen Juan MD 175 [facility] 300 [place] [address] Surgeon Neurosurgery 02/13/23 Katherine Snow PA-C 175 [facility] 300 [place] [address] Specialist Neurosurgery 02/13/23 Per Leahy PA-C 175 [facility] 300 [place] [address] Specialist Neurosurgery 02/13/23 documented as of this encounter
--- OUTSIDE RECORDS SUMMARY | 2025-02-23 16:58 | XMS_ITS | Encounter Summary ---
Author Organization [facility] Address [address] [place] [address] Care Team Providers Care Metal Grinder Name Role Phone Mily Lawrence MD Primary Care Provider [phone] Ralf Gastelum MD Unavailable [phone] Gretchen Juan MD Unavailable [phone] Katherine Snow PA-C Unavailable [phone] Per Leahy PA-C Unavailable [phone] Encounter Details Date Type Department Care Team Description 03/20/2024 Orders Only Medical Records [address] [place] [address] Florina Perla MD Social History Tobacco Use [...] on filedocumented in this encounter Care Teams Metal Grinder Relationship Specialty Start Date End Date Mily Lawrence MD PCP - General Internal Medicine 03/09/19 Ralf Gastelum MD 300 [facility] 154 [place] [address] Specialist Cardiovascular Disease 06/08/22 Gretchen Juan MD [address] [address] Surgeon Neurosurgery 02/13/23 Katherine Snow PA-C [address] [address] Specialist Neurosurgery 02/13/23 Per Leahy PA-C [address] [address] Specialist Neurosurgery 02/13/23 documented as of this encounter
--- OUTSIDE RECORDS SUMMARY | 2025-02-23 16:58 | XMS_ITS | Encounter Summary ---
Author Organization [facility] Address [address] [place] [address] Care Team Providers Care Compilation Clerk Name Role Phone Mily Lawrence MD Primary Care Provider [phone] Ralf Gastelum MD Unavailable [phone] Gretchen Juan MD Unavailable [phone] Katherine Snow PA-C Unavailable [phone] Per Leahy PA-C Unavailable [phone] Encounter Details Date Type Department Care Team Description 01/28/2024 Pt. Non Urgent Medical Question [facility] Medical [facility] 175 [facility] [address] [place] [phone] Salma Elizalde APRN Social History Tobacco Use [...] on filedocumented in this encounter Care Teams Compilation Clerk Relationship Specialty Start Date End Date Mily Lawrence MD PCP - General Internal Medicine 03/09/19 Ralf Gastelum MD 300 [facility] [address] [place] [address] Specialist Cardiovascular Disease 06/08/22 Gretchen Juan MD 175 [facility] 300 [place] [address] Surgeon Neurosurgery 02/13/23 Katherine Snow PA-C 175 [facility] 300 [place] [address] Specialist Neurosurgery 02/13/23 Per Leahy PA-C 175 [facility] 300 [place] [address] Specialist Neurosurgery 02/13/23 documented as of this encounter
--- OUTSIDE RECORDS SUMMARY | 2025-02-23 16:58 | XMS_ITS | Encounter Summary ---
Author Organization [facility] Address [address] [place] [address] Care Team Providers Care Visiting Housekeeper Name Role Phone Mily Lawrence MD Primary Care Provider [phone] Ralf Gastelum MD Unavailable [phone] Gretchen Juan MD Unavailable [phone] Katherine Snow PA-C Unavailable [phone] Per Leahy PA-C Unavailable [phone] Reason for Visit * Reason Comments E-prescribe Rx Request Encounter Details Date Type Department Care Team Description 12/12/2020 Refill Internal Medicine [address], [address] [place] [address] Mily Lawrence MD [address] [place] [phone] E-prescribe Rx Request Social History Tobacco [...] N/A Patients current insurance carrier is: Payor: [email or web address] F[employer] / Plan: [employer] / Product Type: MEDICAID RISK documented in this encounter Plan of Treatment Not on file documented as of this encounter Visit Diagnoses Diagnosis Need for prophylactic vaccination and inoculation against viral hepatitis Mixed hyperlipidemia Essential hypertension, benign Urinary tract infection without hematuria, site unspecified documented in this encounter Care Teams Visiting Housekeeper Relationship Specialty Start Date End Date Mily Lawrence MD PCP - General Internal Medicine 03/09/19 Ralf Gastelum MD 300 [facility] [address] [place] [address] Specialist Cardiovascular Disease 06/08/22 Gretchen Juan MD 175 [facility] 300 [place] [address] Surgeon Neurosurgery 02/13/23 Katherine Snow PA-C 175 [facility] 300 [place] [address] Specialist Neurosurgery 02/13/23 Per Leahy PA-C 175 [facility] 300 [place] [address] Specialist Neurosurgery 02/13/23 documented as of this encounter
--- OUTSIDE RECORDS SUMMARY | 2025-02-23 16:58 | XMS_ITS | Encounter Summary ---
Author Organization [facility] Address [address] [place] [address] Care Team Providers Care Record Press Operator Name Role Phone Mily Lawrence MD Primary Care Provider Ralf Gastelum MD Unavailable [phone] Gretchen Juan MD Unavailable [phone] Katherine Snow PA-C Unavailable [phone] Per Leahy PA-C Unavailable [phone] Encounter Details Date Type Department Care Team Description 08/16/2023 Orders Only OBGYN - 271 [facility] [address] [place] [address] Aparna Edwards, RAMBO 175 [place] [address] Encounter for well woman exam [...] DNA PROBE (08/01/2023) 08/01/2023 [facility] [employer] documented in this encounter Visit Diagnoses Diagnosis Encounter for well woman exam with routine gynecological exam Screen for STD (sexually transmitted disease) Screening examination for venereal disease documented in this encounter Care Teams Record Press Operator Relationship Specialty Start Date End Date Mily Lawrence MD PCP - General Internal Medicine 03/09/19 Ralf Gastelum MD 300 [facility] [address] [place] [address] Specialist Cardiovascular Disease 06/08/22 Gretchen Juan MD 175 [facility] 300 [place] [address] Surgeon Neurosurgery 02/13/23 Katherine Snow PA-C 175 [facility] 300 [place] [address] Specialist Neurosurgery 02/13/23 Per Leahy PA-C 175 [facility] [address] [place] [address] Specialist Neurosurgery 02/13/23 documented as of this encounter
--- OUTSIDE RECORDS SUMMARY | 2025-02-23 16:58 | XMS_ITS | Encounter Summary ---
Author Organization [facility] Address [address] [place] [address] Care Team Providers Care Laundry Washer Name Role Phone Mily Lawrence MD Primary Care Provider [phone]- [phone] Ralf Gastelum MD Unavailable [phone] Gretchen Juan MD Unavailable [phone] Katherine Snow PA-C Unavailable [phone] Per Leahy PA-C Unavailable [phone] Encounter Details Date Type Department Care Team Description 07/21/2024 Hospital Medical Records [address] [place], [place] [address] [place] [address] Social History Tobacco Use Types Packs/Day Years [...] on filedocumented in this encounter Care Teams Laundry Washer Relationship Specialty Start Date End Date Mily Lawrence MD PCP - General Internal Medicine 03/09/19 Ralf Gastelum MD 300 [facility] 154 [place] [address] Specialist Cardiovascular Disease 06/08/22 Gretchen Juan MD [address] [address] Surgeon Neurosurgery 02/13/23 Katherine Snow PA-C [address] [address] Specialist Neurosurgery 02/13/23 Per Leahy PA-C [address] [address] Specialist Neurosurgery 02/13/23 documented as of this encounter
== END 2025-02-23 16:15 | disposition home or self-care (01) ==
LOC: HO.HSMS 16:00
PROVIDERS: PCP Internal Medicine; Visit Provider Psychiatry & Neurology Neurology
DX: G51.32 Clonic hemifacial spasm, left (principal)
CPT/HCPCS: 64612

== ENCOUNTER → 2025-02-23 15:59 | Outpatient (BNVA) | payer OTHER, SELFPAY | PROVIDERS: PCP Internal Medicine; Visit Provider Psychiatry & Neurology Neurology | DX: G51.32 Clonic hemifacial spasm, left (principal) | CPT/HCPCS: 64612; 99211; J0585 ==

== ENCOUNTER 2025-03-22 11:02 | Outpatient (AMB) | payer OTHER, SELFPAY ==
[2025-03-22 11:09] VITALS: BMI 33.5
--- NOTE | 2025-03-22 11:09 | A.OFFVIS_ITS ---
VS Expanded 03/22/25 11:09 Height 5 ft 4 in Weight 195 lb 5.273 oz BMI 33.5 Intake Visit Reasons: PCOS/obesity Allergies Sulfa (Sulfonamide Antibiotics) Allergy (Mild, Verified 02/23/25 16:01) Hives adhesive tape Adverse Reaction (Mild, Verified 02/23/25 16:01) Rash Nutrition Presentation Details: Pt presents for MNT f/u for obesity Pt reports feeling well challenges: choosing empty calorie foods d/t lack of motivation to prepare meal BS Monitoring Most Recent Diabetes Results: Creatinine 0.73 mg/dL (0.5-1.4) 12/01/24 Blood Urea Nitrogen 10 mg/dL (9-16) 12/01/24 Sodium 140 mmol/L (135-145) 12/01/24 Potassium 3.9 mmol/L (3.3-5.1) 12/01/24 Chloride 109 mmol/L (96-108) H 12/01/24 Carbon Dioxide 25 mmol/L (22-29) 12/01/24 Calcium 9.5 mg/dL (8.4-10.2) 12/01/24 AST 31 U/L (5-31) 12/01/24 ALT 23 U/L (0-31) 12/01/24 Total Protein 8.1 g/dL (6.5-8.0) H 12/01/24 Albumin 4.4 g/dL (3.5-5.0) 12/01/24 [facility] Medical History Radiculopathy Cervical radiculopathy at C7 Hirsutism Vitamin D deficiency Insomnia Depression with anxiety GERD (gastroesophageal reflux disease) HLD (hyperlipidemia) Obstructive sleep apnea Urinary incontinence Post-thrombotic syndrome Congestive heart failure (CHF) Degenerative disc disease, cervical Osteoarthritis Lumbosacral radiculitis Cervical post-laminectomy syndrome Brachial radiculitis Surgical History Hx of knee surgery H/O breast biopsy History of lumbar spinal fusion S/P laparoscopic surgery Hx of tubal ligation History of total knee replacement (TKR) Hx of neck surgery Hx of hand surgery Hx of colonoscopy Family History Mother Breast CA DM (diabetes mellitus) HTN (hypertension) Arthritis ESRD (end stage renal disease) Father Arthritis ESRD (end stage renal disease) Maternal Aunt Breast CA Social History Household Members: None Alcohol intake: current Alcohol intake frequency: a few times a week Patient Tobacco Use Status: Never used Tobacco Substance Use Type: Marijuana Assessment & Plan Assessment & Plan (1) Obesity: Code(s): E66.9 - Obesity, unspecified Category: Medical Plan Plan: Review simple meal preparation Goal weight 175 lbs in 3-5 m Wt: 85 Kg ( 02/12 ) Est kcal needs as per MSJ: 2000 (40% carb, 30% protein/fat) Est fluid needs as per 25-30 ml/d: 2600 Est prot per day as per 1 g/kg bw: 85 Recommend fiber intake : 8-10 g per day and gradually increase to 25-28 g per day for women and 35-38 g for men or as tolerated Recommend sodium intake per day : less than 2000 mg Educated patient on: ( R = reviewed V = verbalizes understanding N/R = needs review N/A = not applicable * Food sources of carbohydrate, adequate serving sizes and its role in various health conditions: R V N/R * Differences between complex carbohydrates a simple carbohydrates, role of fiber in diet: R * Lean protein sources of foods: R * Differences between types of fats and role in diet (mono on saturated fat fatty acids, saturated fatty acids, trans fats): R * Food sources of sodium in salt and healthy modifications for heart health in kidney health: R V R/V * Vitamins and minerals: R V N/R * Healthy plate method concept: R * Physical activity: Benefits a precaution: R V N/R Patient Instructions: Keep hydrated by having water with meals/snacks 6-8 oz serving each time Have 2 servings of barnes salad 3 times a week at dinner Coding Level of Care Code Nutr Indiv Subseq (93911) Diagnoses Obesity E66.9 Time Spent (min) 25
--- OUTSIDE RECORDS SUMMARY | 2025-03-22 12:19 | XMS_ITS | Data Portability ---
Author Organization [facility], PAIN [facility] Address [address] [facility] [facility] [address] [place] [address] Care Team Providers Care Director [facility] Name Role Phone MICHAEL HOOKER Primary Care Provider [facility] ([facility]) OTHER Assessment Encounter Date Assessment Date [...] same. She needs a referral to Dr. nSider, neurosurgeon after the MRI. I will schedule [...] therapy with Anderson Murcia at the in [place], [place]. 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 [email or web address] Not available 04/05/2023 12:18:41 12/02/2023 12/02/2023 Ange Montesinos is a 58year old woman with complaints of neck pain [...] recommended. The risks and benefits of the procedure were discussed in detail. She wishes to proceed. An appointment has been booked for the same. She needs a skip load driver on the day of the procedure. Insurance approval needed. I have encouraged tostart physical therapy and discussed the importance of core strengthening. [email or web address] Not available 12/02/2023 14:56:08 01/09/2024 01/09/2024 Ange Montesinos is a 58year old woman with complaints of neck pain [...] . The risks and benefits of the procedure were discussed in detail. She wishes to proceed. I have encouraged tostart physical therapy and discussed the importance of core strengthening. She will follow up after her left knee replacement tmanikantan Not available 01/09/2024 11:20:26 03/27/2024 03/27/2024 Ange Montesinos is a 58year old woman with complaints of neck pain [...] recommended. The risks and benefits of the procedure were discussed in detail. She wishes to proceed. An appointment has been booked for the same. She needs a skip load driver on the day of the procedure. Insurance approval needed. I have encouraged tostart physical therapy and discussed the importance of core strengthening. She si on LOC&ALL and will call back after consulting with [...] surgeon referral 2022 023 HAYDEN Hayward MD, [facility] , [place], [address], 05:00:52 Procedures None recorded. Surgeries None recorded. Imaging None recorded. Medication Orders None recorded. Patient TargetsNo targets recorded. Patient Instructions Encounter Date Encounter Id Patient Instructions Last Modified By Organization Details Last Modified Time 01/24/2023 [id number] She was advised against bed rest lasting longer than four days and to continue activities as tolerated. [email or web address] Not available 01/30/2023 16:21:29 04/01/2023 [id number] physical therapy* HAYDEN Not available 10/13/2023 05:00:58 She was advised against bed rest lasting longer than four days and to continue activities as tolerated. [email or web address] Not available 04/05/2023 11:18:39 12/02/2023 [id number] She was advised against bed rest lasting longer than four days and to continue activities as tolerated. [email or web address] Not available 12/02/2023 14:52:52 03/27/2024 [id number] She was advised against bed rest lasting longer than four days and to continue activities as tolerated. gillian Not available 03/31/2024 16:03:33 Reason for Referral Neurological Surgeon Referra l for Brachial radiculitis Referring Physician: Evelio Smith, Pain Management, Encounter Date: 04/01/2023 Results Created Date Observation Date Name Description Value Unit Range Abnormal Flag Note LastModifiedBy Organization Detail LastModifiedTime 12/26/1912/25/2022 XR, cervi ney spine No observ ation record ed. [facility] [address] [place], [address], 01/24/2023 13:46:21 02/09/20 23 02/06/2023 MRI, cervi ney spine , w/o contr ast No observ ation record ed. [facility] [address] [place], [address], 02/11/2023 15:20:32 Result Notes None recorded. Problems Name Problem SNOMED Code Status Onset Date Resolution Date Notes Provider Name and Address Organization Details Recorded Time Brachial radiculitis 25870983 Active Evelio grady MD [address] , [address], [facility], [address], [place] [facility] 6 08:51:25 Displacement of lumbar intervertebral disc without myelopathy 08998341 Active Evelio grady MD [address] , [address], [facility] [place], [address], [place] [facility] 6 08:55:36 Lumbosacral radiculitis 47104395 Lauryn grady MD [address] , [address], [facility] [place], [address], [place] [facility] 6 08:55:36 Degeneration of cervical intervertebral disc 65841831 Lauryn grady MD [address] , [address], [place], [address], [place] [facility] 6 08:51:25 Cervical post-laminecto my syndrome 546232961 Active Evelio grady MD [address] [facility] , [address], [facility] [place], [address], [place] [facility] 6 08:51:25 Occipital headache 093814 Active Evelio grady MD [address] [facility] , [address], [facility] [place], [address], [place] [facility] 6 08:51:25 Problem Notes None recorded. Procedures Surgical History Date Name Laterality Status Provider Name and Address Organization Details Recorded Time 01/09/20 24 Lumbar Epidural steroid injection under fluoroscopic guidance completed Evelio Smith MD [address] [facility] , [address], [place], [address], [place] [facility] 01/09/2024 11:18:14 12/26/19 23 Lumbar Epidural steroid injection under fluoroscopic guidance completed Evelio Smith MD [address] [facility] , [address], [place], [address], [place] [facility] 12/25/2022 13:26:44 07/08/20 19 Greater Occipital Nerve Block(s) completed Evelio Smith MD [address] [facility] , [address], [place], [address], [place] [facility] 07/09/2019 14:01:34 01/07/20 19 Cervical Epidural Steroid injection under fluroscopic guidance completed Evelio Smith MD [address] [facility] , [address], [place], [address], [place] [facility] 01/07/2019 10:50:11 04/24/20 17 Lumbar Epidural steroid injection under fluoroscopic guidance completed Evelio Smith MD [address] [facility] , [address], [place], [address], [place] [facility] 05/02/2017 10:32:28 10/21/19 17 Lumbar Fusion completed Elsa Lainez [place] [facility] 12/18/2018 13:40:37 10/02/20 16 Lumbar Epidural steroid injection under fluoroscopic guidance completed Evelio Smith MD [address] , [address], [place], [address], [place] [facility] 10/02/2016 14:32:08 04/04/20 16 Lumbar Epidural steroid injection under fluoroscopic guidance completed Evelio Smith MD [address] , [address], [place], [address], [place] [facility] 04/04/2016 11:07:10 Other completed Elsa Lainez [place] [facility] 02/27/2016 14:58:46 Other completed Elsa Lainez [place] [facility] 03/01/2016 10:08:37 Other completed Elsa Lainez [place] [facility] 02/27/2016 14:58:46 Other completed Elsa Lainez [place] [facility] 02/27/2016 14:58:46 Imaging Results None recorded. Procedure Notes None recorded. Medical Equipment None Reported. Allergies Allergen ID Allergen Name Allergen Category Reaction Reaction Severity Criticality Documentation Date Start Date Code Code System Note Provider Name and Address Organization Details Recorded Time 65172 Substance with sulfonami de structure and antibacte rial mechanism of action (substanc e) medicatio n hives Not available Not available 02/27/2016 07864 8003 SNOMED Elsa paris [place] - [facility] 6 [...] ar syringe TO BE ADMINISTE RED BY PHARMACIS T FOR IMMUNIZAT ION 12/18 completed Not [...] Available N ot Available Vitals Date Recorded Body height Heart rate Oxygen saturation Oxygen saturation in Arterial blood by Pulse oximetry Body mass index (BMI) Body weight Systolic blood pressure Diastolic blood pressure Provider Name and Address Organization Details Last Updated DateTime 4 162.56 cm 75 /min 96 % 96 % 34.3 kg/m2 90240.4 7 g 150 mm[Hg] 90 mm[Hg] Deana [...] [facility] 4 10:08:26 Date Recorded Heart rate Oxygen saturation Oxygen saturation in Arterial blood by Pulse oximetry Systolic blood pressure Diastolic blood pressure Provider Name and Address Organization Details Last Updated DateTime 3 88 /min 98 % 98 % 107 mm[Hg] 77 mm[Hg] Corina Saldivar [place] [facility] 3 13:18:03 Date Recorded Body height Heart rate Oxygen saturation Oxygen saturation in Arterial blood by Pulse oximetry Body mass index (BMI) Body weight Systolic blood pressure Diastolic blood pressure Provider Name and Address Organization Details Last Updated DateTime 4 162.56 cm 101 /min 97 % 97 % 34.3 kg/m2 08890.4 7 g 144 mm[Hg] 91 mm[Hg] Evelio grady MD [address] , [address], [facility] [place], [address], [place] - [facility] 4 10:28:41 Date Recorded Body height Heart rate Oxygen saturation Oxygen saturation in Arterial blood by Pulse oximetry Body mass index (BMI) Body weight Systolic blood pressure Diastolic blood pressure Provider Name and Address Organization Details Last Updated DateTime 3 162.56 cm 89 /min 98 % 98 % 35.2 kg/m2 07287.4 4 g 165 mm[Hg] 77 mm[Hg] Mary Zamarripa [facility] 3 13:23:02 Social History Question Answer Notes LastModified by [employer] Details LastModified Time Tobacco Smoking Status Never Smoker Not Available [employer] 08/05/2020 03:16:12 Which Illicit Or Recreational Drugs Have You Used? No [id number] Information not available 08/05/2020 Education 2 [employer] [facility] Information not available 02/27/2016 Live Alone Or With Others? Alone barlow respiratory Information not available 02/27/2016 Marital Status barlow respiratory Informatio n not available 02/27/2016 What Was The Date Of Your Most Recent Tobacco Screening? 01/31/2019 [id number] Information not available 08/05/2020 Sex: Unknown Functional Status Question Answer Note LastModified by [employer] Details LastModified Time What is your level of alcohol consumption? Moderate [id number] Information not available 08/05/2020 Are you currently employed? No disability [email or web address] Information not available 11/23/2021 Mental Status None recorded. Family History Nothing Reported. Medical History Condition Response Anxiety Disorder Y Arthritis Y Hypertension Y Depression Y Gynecological HistoryNo gynecological history recorded. Obstetrics History GPAL:G 0 P 0 0 0 0 Past Encounters Encounter ID Performer Location Encounter Start Date Encounter Closed Date Diagnosis/Indication Diagnosis SNOMED-CT Code Diagnosis ICD10 Code Diagnosis Note [id number] Evelio Smith MD PAIN OFFICE [address] [place] [address] 02/27/2016 14:19:46 02/28/2016 08:47:29 Displacement of lumbar intervertebral disc without myelopathy 23429369 M51.26 Lumbosacra l radiculitis 05841040 M54.17 Brachial radiculitis 278 28692 M54.12 Cervical post-laminectomy syndrome 516997190 M96.1 Degenerati on of cervical intervertebral disc 18026155 M50.30 Occipital headache 60063 7 R51 [id number] Evelio Smith MD PAIN OFFICE [address] [place] [address] 03/20/2016 08:42:32 03/20/2016 10:30:41 Displacement of lumbar intervertebral disc without myelopathy 45060310 M51.26 Lumbosacra l radiculitis 66015621 M54.17 [id number] Evelio Smith MD [facility] PA[facility] [address] [place] [address] 04/04/2016 10:15:22 04/04/2016 11:15:33 Displacement of lumbar intervertebral disc without myelopathy 84175781 M51.26 Lumbosacra l radiculitis 99927869 M54.17 [id number] Evelio Smith MD PAIN OFFICE [address] [place] [address] 05/10/2016 11:47:50 05/15/2016 08:55:57 Displacement of lumbar intervertebral disc without myelopathy 68275094 M51.26 Lumbosacra l radiculitis 21193711 M54.17 [id number] Evelio Smith MD PAIN OFFICE [address] [place] [address] 09/03/2016 10:14:59 09/20/2016 08:51:29 Lumbosacral radiculitis 59098139 M54.17 Displaceme nt of lumbar intervertebral disc without myelopathy 23783003 M51.26 [id number] Evelio Smith MD [facility] PA[facility] OFFICE [address] [place] [address] 10/02/2016 13:29:26 10/03/2016 14:29:14 Displacement of lumbar intervertebral disc without myelopathy 80609171 M51.26 Lumbosacra l radiculitis 82815102 M54.17 [id number] Evelio Smith MD [facility] PAIN OFFICE [address] [place] [address] 03/27/2017 13:22:06 03/28/2017 16:32:03 Cervical radiculopathy 42962486 M54.12 Degenerati on of cervical intervertebral disc 74791651 M50.30 Muscle pain 20334645 M79 .1 Displaceme nt of lumbar intervertebral disc without myelopathy 47922465 M51.26 Lumbosacra l radiculitis 61193885 M54.17 [id number] Evelio Smith MD PAIN OFFICE [address] [place] [address] 04/24/2017 13:30:47 05/02/2017 13:43:27 Cervical post-laminectomy syndrome 658882415 M96.1 Cervical radiculopathy 05617869 M54.12 Displaceme nt of lumbar intervertebral disc without myelopathy 29692533 M51.26 Lumbosacra l radiculitis 50559929 M54.17 [id number] Evelio Smith MD PAIN OFFICE [address] [place] [address] 05/16/2017 11:40:03 05/17/2017 11:19:26 Brachial radiculitis 84709390 M54.12 Degenerati on of cervical intervertebral disc 54278708 M50.30 Cervical post-laminectomy syndrome 730530405 M96.1 Occipital headache 27230 7 R51 [id number] Evelio Smith MD PAIN OFFICE [address] [place] [address] 12/18/2018 13:31:38 12/18/2018 16:14:01 Brachial radiculitis 48134339 M54.12 Degenerati on of cervical intervertebral disc 04628072 M50.30 Cervical post-laminectomy syndrome 251512969 M96.1 Occipital headache 73777 7 R51 [id number] Evelio Smith MD PAIN OFFICE [address] [place] [address] 01/06/2019 08:42:42 01/07/2019 10:53:06 Brachial radiculitis 37156094 M54.12 Degenerati on of cervical intervertebral disc 01771795 M50.30 Cervical post-laminectomy syndrome 610597647 M96.1 Occipital headache 90056 7 R51 [id number] Evelio Smith MD PAIN OFFICE [address] [employer] [place] [address] 01/28/2019 14:04:46 01/31/2019 10:24:31 Brachial radiculitis 84090492 M54.12 Degenerati on of cervical intervertebral disc 59424692 M50.30 Cervical post-laminectomy syndrome 895781940 M96.1 Occipital headache 83107 7 R51 [id number] Evelio Smith MD PAIN OFFICE [address] [employer] [address] [place] [address] 06/09/2019 14:32:10 06/26/2019 15:58:13 Occipital headache 053410 R51 Degenerati on of cervical intervertebral disc 58098575 M50.30 Cervical post-laminectomy syndrome 738575192 M96.1 Brachial radiculitis 278 34794 M54.12 [id number] Evelio Smith MD PAIN OFFICE [address] [place] [address] 07/08/2019 15:29:45 07/09/2019 14:03:49 Occipital headache 334861 R51 Cervical post-laminectomy syndrome 997911310 M96.1 Degenerati on of cervical intervertebral disc 05091065 M50.30 Brachial radiculitis 278 38599 M54.12 [id number] Evelio Smith MD PAIN OFFICE [address] [place] [place] [address] 08/24/2019 13:24:13 08/25/2019 11:25:36 Occipital headache 383621 R51 Degenerati on of cervical intervertebral disc 52257790 M50.30 Cervical post-laminectomy syndrome 940128967 M96.1 Brachial radiculitis 278 12592 M54.12 [id number] Evelio Smith MD PAIN OFFICE [address] [employer] [place] [address] 03/07/2020 13:03:14 03/07/2020 14:34:46 Occipital headache 645722 R51 Degenerati on of cervical intervertebral disc 36917453 M50.30 Cervical post-laminectomy syndrome 276903341 M96.1 Brachial radiculitis 278 43710 M54.12 [id number] Evelio Smith MD PAIN OFFICE [address] [place] [address] 11/23/2021 13:01:22 11/23/2021 13:27:11 Displacement of lumbar intervertebral disc without myelopathy 32111990 M51.26 Lumbosacra l radiculitis 24411242 M54.17 Brachial radiculitis 278 34515 M54.12 Cervical post-laminectomy syndrome 090657902 M96.1 Degenerati on of cervical intervertebral disc 75837048 M50.30 Occipital headache 72356 7 R51.9 [id number] Evelio Smith MD PAIN OFFICE [address] [place] [address] 09/12/2022 08:14:50 09/12/2022 15:42:09 Displacement of lumbar intervertebral disc without myelopathy 81878648 M51.26 Lumbosacra l radiculitis 41261826 M54.17 Brachial radiculitis 278 98827 M54.12 Cervical post-laminectomy syndrome 734459933 M96.1 Degenerati on of cervical intervertebral disc 94141959 M50.30 Occipital headache 49099 7 R51.9 [id number] Evelio Smith MD PAIN OFFICE [address] [place] [address] 12/06/2022 14:08:50 12/13/2022 14:02:45 Displacement of lumbar intervertebral disc without myelopathy 86952841 M51.26 Lumbosacra l radiculitis 19115402 M54.17 Brachial radiculitis 278 61748 M54.12 Cervical post-laminectomy syndrome 657390348 M96.1 Degenerati on of cervical intervertebral disc 64751893 M50.30 Occipital headache 47346 7 R51.9 [id number] Evelio Smith MD PAIN OFFICE [address] [place] [address] 12/25/2022 11:32:27 12/25/2022 13:59:32 Displacement of lumbar intervertebral disc without myelopathy 25612951 M51.26 Lumbosacra l radiculitis 28506934 M54.17 Brachial radiculitis 278 17093 M54.12 Cervical post-laminectomy syndrome 964963657 M96.1 Degenerati on of cervical intervertebral disc 91319395 M50.30 Occipital headache 87814 7 R51.9 [id number] Evelio Smith MD PAIN OFFICE [address] [place] [address] 01/24/2023 13:09:55 01/31/2023 14:49:17 Brachial radiculitis 62530238 M54.12 Degenerati on of cervical intervertebral disc 99976046 M50.30 Cervical post-laminectomy syndrome 675358996 M96.1 Occipital headache 21414 7 R51.9 [id number] Evelio Smith MD PAIN OFFICE [address] [place] [address] 04/01/2023 13:14:13 04/05/2023 12:19:21 Lumbosacral radiculitis 71284485 M54.17 Brachial radiculitis 278 53183 M54.12 Degenerati on of cervical intervertebral disc 61240255 M50.30 Cervical post-laminectomy syndrome 658787981 M96.1 Occipital headache 04077 7 R51.9 [id number] Evelio Smith MD PAIN OFFICE [address] [place] [address] 12/02/2023 14:06:57 12/02/2023 14:57:45 Lumbosacral radiculitis 08248376 M54.17 Displaceme nt of lumbar intervertebral disc without myelopathy 04556894 M51.26 Brachial radiculitis 278 93202 M54.12 Cervical post-laminectomy syndrome 333939625 M96.1 Degenerati on of cervical intervertebral disc 23466879 M50.30 Occipital headache 76875 7 R51.9 [id number] Evelio Smith MD PAIN OFFICE [address] [place] [address] 01/09/2024 10:01:40 01/09/2024 15:01:59 Displacement of lumbar intervertebral disc without myelopathy 43302295 M51.26 Lumbosacra l radiculitis 55751774 M54.17 Brachial radiculitis 278 22345 M54.12 Cervical post-laminectomy syndrome 999508678 M96.1 Degenerati on of cervical intervertebral disc 52214040 M50.30 Occipital headache 53017 7 R51.9 [id number] Evelio Smith MD [facility] PAIN OFFICE [address] [address] 03/27/2024 10:21:43 03/31/2024 16:07:49 Displacement of lumbar intervertebral disc without myelopathy 14239193 M51.26 Lumbosacra l radiculitis 66299507 M54.17 Brachial radiculitis 278 41776 M54.12 Cervical post-laminectomy syndrome 264285630 M96.1 Degenerati on of cervical intervertebral disc 85534996 M50.30 Occipital headache 65631 7 R51.9 Health Concerns Section Related Observation LastModified by Organization Detai ls LastModified Time None Recorded Concern Status LastModified by Organization Details LastModified Time None Recorded Advance Directives Directive None Recorded Payers Encounter Date Sequence Insurance Name Policy Number Policy Mojica Covered Member ID Mojica Member ID Guarantor Name 01/24/2023 2 [employer] - DOS PRIOR TO 2023 (MEDICARE REPLACEMENT/ADV ANTAGE - PPO) Ange Montesinos [id number] 04/01/2023 1 [employer] - DOS ON OR AFTER 2023 - ONE CARE (MEDICARE REPLACEMENT/ADV ANTAGE - HMO) Ange Montesinos [id number] 12/02/2023 1 [employer] - DOS ON OR AFTER 2023 - ONE CARE (MEDICARE REPLACEMENT/ADV ANTAGE - HMO) Ange Montesinos [id number] 01/09/2024 1 [facility] - DOS ON OR AFTER 2023 - ONE CARE (MEDICARE REPLACEMENT/ADV ANTAGE - HMO) Ange Montesinos [id number] 03/27/2024 1 [employer] - DOS ON OR AFTER 2023 - ONE CARE (MEDICARE REPLACEMENT/ADV ANTAGE - HMO) Ange Montesinos [id number] Notes Date Note Type Note Provider Name [...] or bowel incontinence. Evelio Smith MD [address] [facility] , [address], [place], [address], [facility] 01/31/2023 15:49:56 04/01/2023 text/html She [...] this time.She states she has been having [place] Palsy for the past one year and sees Dr. 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 She has weakness in her arms and legs . Evelio Smith MD [address] [facility] , [address], [place], [address], [facility] 04/05/2023 12:20:51 12/02/2023 text/html She states she h as been having pain since 4720-0438. She is having an exacerbation of pain [...] [facility] [place] [place] . She has done physical therapy and had an exacerbation of her pain.She has seen a neurosurgeon in [place], [place] . She wants to wait as she is planning on a knee replacement. She is also in grief as she has lost her mother last year. Evelio Smith MD [address] [facility] , [address], [place], [address], [facility] 12/04/2023 16:33:41 01/09/2024 text/html She is here for a lumbar epidural steroid injection under fluoroscopic guidance. Evelio Smith MD [address] [facility] , [address], [place], [address], [facility] 01/09/2024 15:09:18 03/27/2024 text/html She states she h as been having pain since 2514-8087. She is having an exacerbation of pain [...] [facility] [place] . She has done physical therapy and had an exacerbation of her pain.She has seen a neurosurgeon in [place] . She is S/P knee replacement on 03/03/[address] Segundo and is on eliquis. Evelio Smith MD [address] [place] [address] , [address], [place], [address], [facility] - Pain Management 03/31/2024 16:06:56 OBGyn Episode No OBEpisode recorded.
== END 2025-03-22 11:37 | disposition home or self-care (01) ==
LOC: HO.ENCR 11:05
PROVIDERS: PCP Internal Medicine; Visit Provider Dietitian, Registered
DX: E66.9 Obesity, unspecified (principal)

== ENCOUNTER → 2025-03-22 11:02 | Outpatient (BNVA) | payer OTHER, SELFPAY | PROVIDERS: PCP Internal Medicine; Visit Provider Dietitian, Registered | DX: E66.9 Obesity, unspecified (principal); Z71.3 Dietary counseling and surveillance; Z68.33 Body mass index [BMI] 33.0-33.9, adult | CPT/HCPCS: 97803 ==

== ENCOUNTER 2025-05-25 11:03 | Outpatient (AMB) | payer OTHER, SELFPAY ==
[2025-05-25 11:05] VITALS: BP 138/90; PULSE 82; O2SAT 96; BMI 32.1
--- NOTE | 2025-05-25 11:05 | A.OFFVIS_ITS ---
Vital Signs 05/25/25 11:05 Height 5 ft 4 in Weight 187 lb 4 oz BMI 32.1 BP 138/90 H Blood Pressure Location Lt brachial Position Sitting Pulse 82 Pulse Source Pulse Oximeter Pulse Oximetry (%) 96 Oxygen Delivery Method Room Air Intake Visit Reasons: 6 mo fu Migraine, ASHKAN Intake Note: Patient presents follow up Migraine/ASHKAN. Labs/Compliance in chart. [place] Required: No Accompanied by: Self / Same As Patient Allergies Sulfa (Sulfonamide Antibiotics) Allergy (Mild, Verified 05/25/25 11:05) Hives adhesive tape Adverse Reaction (Mild, Verified 05/25/25 11:05) Rash Medication List - Last Reconciled 05/25/25 by SKYE Rios acetaminophen 500 mg PO Q6H PRN acetaminophen ER (Tylenol 8 Hour) 650 mg PO Q12H atorvastatin 10 mg PO DAILY celecoxib 0 mg PO cetirizine (Zyrtec) 10 mg PO DAILY PRN cholecalciferol (vitamin D3) (Vitamin D3) 50 mcg PO DAILY cyclobenzaprine 10 mg PO BID 30 days diclofenac sodium 1% 4 grams topical BID gabapentin orally 2 times a day; 30 days galcanezumab-gnlm (Emgality Pen) 240 mg (2 mL) subcut ONCE 30 days hydrochlorothiazide 25 mg PO DAILY ketoconazole 2% topical lisinopril 30 mg PO DAILY melatonin 3 mg PO BEDTIME PRN metoprolol tartrate 50 mg PO BID onabotulinumtoxinA (Botox) 100 units IM ONCE 12 weeks ondansetron HCl 4 mg PO Q8H PRN polyethylene glycol 3350 17 grams PO DAILY pyridoxine (vitamin B6) (Vitamin B-6) 250 mg PO DAILY sertraline 100 mg PO DAILY thiamine HCl (vitamin B1) mg PO tramadol 50 mg PO QID PRN trazodone 50 mg PO BEDTIME ubrogepant (Ubrelvy) 50 - 100 mg (0.5 - 1 x 100 mg) PO ONCE PRN 30 days HPI Comments Details: 59-yr-old female presents for f/u visit. Patient reports she has had an intentional weight loss, trying to eat better. She continues to have neck pain and BUE numbness and tingling, especially at night regardless of her sleep position. She has reached out to her PCP office to request a new pillow. She is still seeing Dr Nathan Barami, who performed her l-spine repair last year. Plans to undergo f/u spine CT on 05/31/25. She is hoping have follow-up with her orthopedic surgeon for for chronic right shoulder pain. Has not yet rec'd an orthopedic pillow, which she would like to try as she feels her neck and shoulder symptoms negatively impact her sleep- states that her orthopedic office has ordered this but there are insurance or fender issues. February 2024 BUE EMG/NCS was normal. Left hemifascial spasm and Chapin's palsy symptoms have been responsive to Botox therapy. She has had less migraine attacks. Has had a few tension headaches in the last few days- which she attributes to not sleeping well. She has not had the emaglaity. She states she is not recently had the Ubrelvy, she had thought that she had a high co-pay for this. Previously had good effect from prn Ubrelvy use. Note that both Emgality and Ubrelvy or approved through December of 2025 She never received new loading dose of Emgality- however it was helpful in the past. She is still not sleeping well. Has inconsistent sleep schedule, tries to go to bed around 22:00 sometimes, but then can not sleep until the sunrise is, and then will sleep during the day. Using melatonin 3-6mg, celebrex, trazodone, and gabapentin qhs- but feels that she cannot relax enough to fall asleep. She has been fitted for a mandibular device through [facility]- so has not been using her CPAP as much. [facility] Medical History Radiculopathy Cervical radiculopathy at C7 Hirsutism Vitamin D deficiency Insomnia Depression with anxiety GERD (gastroesophageal reflux disease) HLD (hyperlipidemia) Obstructive sleep apnea Urinary incontinence Post-thrombotic syndrome Congestive heart failure (CHF) Degenerative disc disease, cervical Osteoarthritis Lumbosacral radiculitis Cervical post-laminectomy syndrome Brachial radiculitis Surgical History Hx of knee surgery H/O breast biopsy History of lumbar spinal fusion S/P laparoscopic surgery Hx of tubal ligation History of total knee replacement (TKR) Hx of neck surgery Hx of hand surgery Hx of colonoscopy Family History Mother Breast CA DM (diabetes mellitus) HTN (hypertension) Arthritis ESRD (end stage renal disease) Father Arthritis ESRD (end stage renal disease) Maternal Aunt Breast CA Social History Household Members: None Alcohol intake: current Alcohol intake frequency: a few times a week Patient Tobacco Use Status: Never used Tobacco Substance Use Type: Marijuana Physical Exam Vital Signs: Last Vital Signs Pulse 82 05/25/25 11:05 BP 138/90 H 05/25/25 11:05 Pulse Ox 96 05/25/25 11:05 Oxygen Delivery Method Room Air 05/25/25 11:05 BMI result Body Mass Index 32.1 Const General: cooperative and no acute distress Orientation/consciousness: patient oriented x3 Resp Effort & Inspection: normal respiratory effort and able to speak in complete sentences Neuro Other: Left hemifascial spasm/droop Able to slowly step-off of exam table, so steady gait with cane. General: patient oriented x3 Cognition (Neuro): normal cognition Psych Appearance: grossly normal Mental Status: mental status grossly normal Speech and movement: Normal speech and movement present Affect: normal affect Attitude: cooperative Telehealth Telehealth Telehealth Platform: [employer] Location of provider rendering services: practice address Location of patient: address on file Patient Identification confirmed using: Name, : Yes Telehealth method: video Patient verbally consented to treatment: Yes Patient verbally consented to billing insurance company: Yes Patient informed of any privacy concerns related to visit: Yes Minutes spent on Phone/Video with Pt.: 23 Assessment & Plan Assessment & Plan (1) Migraine without aura: Code(s): G43.009 - Migraine without aura, not intractable, without status migrainosus Category: Medical Qualifiers: Status migrainosus presence: without status migrainosus Intractability: not intractable Qualified Code(s): G43.009 - Migraine without aura, not intractable, without status migrainosus (2) Hemifacial spasm of left side of face: Code(s): G51.32 - Clonic hemifacial spasm, left Category: Medical (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 ? For hemifascial spasm: Continue Botox q 3 months, reviewed tx is for facial spasm and not left facial weakness/asymmetry r/t h/o left chapin's palsy.. Continue to do facial exercises ? For neck pain and BUE paresthesias: Reviewed interval labs: Unremarkable BUE EMG/NCS- normal. PT exercises as tolerated. Concur with trying new cervical support pillow- patient advised to follow-up with her orthopedic office or to reach out to other local medical supply stores, such as [employer] or [employer] to see if they can help her with this order. Cyclobenzaprine to 10mg bid p.r.n. (evening and bedtime) Continue Celebrex as ordered. Increase Gabapentin 300 mg b.i.d. order to 3 times per day (upon arising, 2 hours before bedtime, and at bedtime) Future considerations: Pain management consult For sleep difficulties: Discussed importance of maintaining a regular sleep routine. As patient sleep routine is very inconsistent at this time, patient is encouraged to start with establishing a usual wake-up time, that would work well for her lifestyle and daily schedule. Once this is decided, patient is encouraged to get out of bed every day at this time, and resist the urge to take daytime naps. In the meantime, patient may: * Adjust melatonin from 3 mg at bedtime to 3-6 mg daily at 18:00. * Increase gabapentin to 300 mg 3 times per day (upon arising, 2 hours before bedtime, and at bedtime) ? For migraine w/o aura prevention: Patient is again advised to resume Emgality: * Loading dose 240mg sc x's 1 (may need to supply patient with a sample for loading dose) * Then in 30 days, start maintenance dose of 120mg sc q month. Continue Riboflavin 400mg qam Continue Magnesium 400mg qhs Previous migraine trials: Topiramate was not helpful. Previously tried Amitriptyline- unhelpful. She currently takes metoprolol for HTN however this does not help migraines. Future considerations- Nurtec or qulipta for prevention. ? For acute migraine tx: Resume Ubrogepant (Ubrelvy) 100mg tab, 1/2 - 1 tab (50-100mg) at onset of headache, may repeat in 2 hours. Max of 2 tabs (200mg) per 24 hours. May adjunct with OTC Tylenol 650mg q 4 hours, Ibuprofen 600mg q 6 hours, or Naproxen 440mg q 12 hrs prn. Contraindications- triptans d/t HTN. For pituitary microadenoma- F/u w/ endocrinology as scheduled. ? ? f/u in 6 months or sooner prn Medications: Changed From ubrogepant (Ubrelvy) take at onset of migraine, may repeat in 2hrs (may take w/ Tylenol) 50 - 100 mg (0.5 - 1 x 100 mg) PO ONCE 30 days PRN 16 tabs 6RF migraine headache To ubrogepant (Ubrelvy) take at onset of migraine, may repeat in 2hrs 50 - 100 mg (0.5 - 1 x 100 mg) PO ONCE PRN 16 tabs 6RF migraine headache 30 days From melatonin 3 mg PO BEDTIME PRN To melatonin at 6pm 6 mg (2 x 3 mg) PO DAILY 180 caps 1RF 90 days From gabapentin orally 2 times a day; 30 days 60 caps 3RF To gabapentin am, 2 hours before bedtime, and at bedtime. 300 mg PO TID 90 caps 3RF 30 days Refilled galcanezumab-gnlm (Emgality Pen) Loading dose: 120 mg subcu injection x2 in alternate sites (total 240 mg). To be followed by maintenance dose of 120 mg subcu q.month. 240 mg (2 mL) subcut ONCE 2 mL 0RF 30 days Coding Level of Care Code Est Pt Level 4 (65417) Complex EM visit Add On G2211 Diagnoses Migraine without aura and without status migrainosus, not intractable G43.009 Status migrainosus presence: without status migrainosus Intractability: not intractable Hemifacial spasm of left side of face G51.32 Chapin's palsy G51.0 Severe obstructive sleep apnea G47.33 Pituitary microadenoma D35.2
--- OUTSIDE RECORDS SUMMARY | 2025-05-25 11:51 | XMS_ITS | Encounter Summary ---
Author Organization [facility] Address [address] [place] [address] Care Team Providers Care Supervisor Decorating Name Role Phone Mily Lawrence MD Primary Care Provider [phone] Ralf Gastelum MD Unavailable [phone] Gretchen Juan MD Unavailable [phone] Katherine Snow PA-C Unavailable [phone] Per Leahy PA-C Unavailable [phone] Encounter Details Date Type Department Care Team Description 09/28/2022 Orders Only Medical Records [address] [place] [id number] Abstract, Provider Routine medical exam Social History [...] facility documented in this encounter Care Teams Supervisor Decorating Relationship Specialty Start Date End Date Mily Lawrence MD PCP - General Internal Medicine 03/09/19 Ralf Gastelum MD [address] [facility] [address] [place] [address] Specialist Cardiovascular Disease 06/08/22 Gretchen Juan MD [address] [address] Surgeon Neurosurgery 02/13/23 Katherine Snow PA-C [address] [facility] [address] [place] [address] Specialist Neurosurgery 02/13/23 Per Leahy PA-C [address] [address] Specialist Neurosurgery 02/13/23 documented as of this encounter
--- OUTSIDE RECORDS SUMMARY | 2025-05-25 11:51 | XMS_ITS | Clinical Summary ---
Author Organization [facility] Address [address] [place] [address] Care Team Providers Care Post Adoption Coordinator Name Role Phone Mily Lawrence MD Primary Care Provider [phone] Allergies Active Allergy Reactions Criticality Noted Date [...] 85 08/18/2024 4:15 PM EDT Temperature 36.6 C (97.8 F) 08/18/2024 4:15 PM EDT Respiratory Rate 20 07/21/2024 7:58 AM EDT [...] o f 2) 2017 Influenza Vaccine (#1) 2025 0, 07/09/2019, 11/15/2017 Pneumococcal Vaccine Aged Out 02/05/2008 No long er eligible based on patient's age to complete this topic Hepatitis B Vaccines Completed 10/27/2019, 05/26/2019, 04/22/2019 RSV Ped < 20 months Aged Out No longe r eligible based on patient's age to complete this topic Medical Devices Implanted Type Area Prep Room Supervisor Device Identifier Shelf Expiration Date Model / Serial / Lot Putty Vesuvius 100 5ml Stry-K2m [id number] - [id number] Implanted:Qty: 1 on 07/16/2024 by Nathan Hayward MD at [facility] [place] and Med Lateral: Spine Lumbar LAXMI SPINE 02/17/2027 [id number] / [id number] / Bone Graft Spine Infus Xsm Medt-Sofa [id number] - [id number] Implanted:Qty: 1 on 07/16/2024 by Nathan Hayward MD at [facility] [place] and Med Lateral: Spine Lumbar [employer] SOFAMOR DANEK 11/20/2025 [id number] / / [id number] [place] Interbody System Implanted:Qty: 1 on 07/16/2024 by Nathan Hayward MD at [facility] [place] and Med Lateral: Spine Lumbar LAXMI - MEDICAL 10/30/2028 [id number] / / [id number] 4R Plate [facility] 2hl 18mm Stry-K2m [id number] - [id number] Implanted:Qty: 1 on 07/16/2024 by Nathan Hayward MD at [facility] [place] and Med Lateral: Spine Lumbar LAXMI SPINE [id number] / / 5.0x40mm Screw Implanted:Qty: 2 on 07/16/2024 by Nathan Hayward MD at [facility] [place] and Med Lateral: Spine Lumbar LAXMI - MEDICAL [id number] / / Plate Assembly Screw Implanted:Qty: 1 on 07/16/2024 by Nathan Hayward MD at [facility] [place] and Med Lateral: Spine Lumbar LAXMI - MEDICAL [id number] / / Advance Directives For more information, please contact: [phone] Latest Code Status on File Code Status [...] way: discussion with patient . Care Teams Post Adoption Coordinator Relationship Specialty Start Date End Date Mily Lawrence MD [address] [place] [address] [address] [place] [id number] PCP - General Internal Medicine 06/12/17
--- OUTSIDE RECORDS SUMMARY | 2025-05-25 11:51 | XMS_ITS ---
Author Name [facility] Organization Unknown Results Test Name/Text Value Interpretation Date Range Source BUN SERPL MCNC 25.0 mg/dL Above high normal 07/19/2024 7 - 1 7 [facility] Glomerular filtration rate/1.73 sq M. predicted 66.0 Normal 07/19/2024 60 - [facility] CHLORIDE SERPL SCNC 101.0 mmol/L Normal 07/19/2024 98 - 1 07 [facility] ANION GAP SERPL SCNC 8.0 mmol/L Normal 07/19/2024 5 - 14 [facility] GLUCOSE SERPL MCNC 106.0 mg/dL Normal 07/19/2024 70 - 199 [facility] CREAT SERPL [facility]NC 1.0 mg/dL Normal 07/19/2024 0.5 - 1 [facility] SODIUM SERPL SCNC 136.0 mmol/L Normal 07/19/2024 135 - 14 5 [facility] POTASSIUM SERPL SCNC 4.7 mmol/L Normal 07/19/2024 3.5 - 5.1 [facility] CALCIUM SERPL MCNC 10.0 mg/dL Normal 07/19/2024 8.4 - 10. 2 [facility] HCO3 SER SCNC 27.0 mmol/L Normal 07/19/2024 24 - 32 CTT HS[facility]AN WBC NO. BLD AUTO 11.8 K/uL Above high normal 07/19/2024 4 - 10.5 [facility] PMV BLD AUTO 8.0 fL Normal 07/19/2024 7.4 - 11.4 [facility] MCH RBC QN AUTO 28.4 pg Normal 07/19/2024 25 - 33 CTT [facility] RBC NO. BLD AUTO 4.86 M/uL Normal 07/19/2024 4.2 - 5.4 CT [facility] PLATELET NO. BLD AUTO 275.0 K/uL Normal 07/19/2024 150 - 450 [facility] RDW RBC AUTO RTO 14.4 % Normal 07/19/2024 12.1 - 16.2 [facility] HGB BLD MCNC 13.8 g/dL Normal 07/19/2024 12.5 - 16 [facility]AN MCV RBC AUTO 86.2 fL Normal 07/19/2024 78 - 100 [facility] HCT VFR BLD AUTO 41.9 % Normal 07/19/2024 37 - 47 [facility] MCHC RBC AUTO MCNC 33.0 g/dL Normal 07/19/2024 32 - 36 [facility] Prot Ur Ql Strip.auto NEGATIVE Normal 07/18/2024 - [facility] Ketones Ur Ql Strip.auto NEGATIVE Normal 07/18/2024 - [facility] Leukocyte esterase Ur Ql Strip.auto NEGATIVE Normal 07/18/2024 - [facility] pH Ur Strip.auto 5.0 Normal 07/18/2024 4.5 - 8 CT [facility] Glucose Ur Ql Strip.auto NEGATIVE Normal 07/18/2024 - [facility] Clarity Ur Refract.auto CLEAR Normal 07/18/2024 [facility] Nitrite Ur Ql Strip.auto NEGATIVE Normal 07/18/2024 - [facility] Sp Gr Ur Strip.auto 1.01 Normal 07/18/2024 1.005 - 1.03 [facility] Hgb Ur Ql Strip.auto NEGATIVE Normal 07/18/2024 - [facility] SPECIMEN SOURCE XXX URINE CLEAN CATCH Normal 07/18/2024 [facility] GLUCOSE P FAST SERPL MCNC 111.0 mg/dL Above high normal 07/02/2024 70 - 99 [facility] Glomerular filtration rate/1.73 sq M. predicted 59.0 Below low normal 07/02/2024 60 - [facility] CREAT SERPL MCNC 1.1 mg/dL Above high normal 07/02/2024 0.5 - 1 [facility] CHLORIDE SERPL SCNC 100.0 mmol/L Normal 07/02/2024 98 - 1 07 [facility] BUN SERPL MCNC 22.0 mg/dL Above high normal 07/02/2024 7 - 1 7 [facility] POTASSIUM SERPL SCNC 4.4 mmol/L Normal 07/02/2024 3.5 - 5.1 [facility] CALCIUM SERPL MCNC 11.5 mg/dL Above high normal 07/02/2024 8 .4 - 10.2 [facility] BILIRUB SERPL MCNC 0.7 mg/dL Normal 07/02/2024 0.3 - 1 [facility] ALT SERPL CCNC 18.0 U/L Normal 07/02/2024 7 - 52 [facility] ANION GAP SERPL SCNC 12.0 mmol/L Normal 07/02/2024 5 - 14 [facility] PROT SERPL MCNC 8.3 g/dL Normal 07/02/2024 6.4 - 8.5 [facility]TT HN[facility]G HCO3 SER SCNC 28.0 mmol/L Normal 07/02/2024 24 - 32 [facility]TT [facility] ALBUMIN SERPL BCG MCNC 4.7 g/dL Normal 07/02/2024 3.5 - 5 [facility] SODIUM SERPL SCNC 140.0 mmol/L Normal 07/02/2024 135 - 14 5 [facility] ALP SERPL-CCNC 51.0 U/L Normal 07/02/2024 34 - 104 [facility] AST SERPL CCNC 22.0 U/L Normal 07/02/2024 5 - 40 [facility] PREALB SERPL NEPH MCNC 24.7 mg/dL Normal 07/02/2024 17 - 34 [facility] PLATELET NO. BLD AUTO 285.0 K/uL Normal 07/02/2024 150 - 450 [facility] PMV BLD AUTO 9.2 fL Normal 07/02/2024 7.4 - 11.4 [facility] EMG EOSINOPHIL NFR BLD AUTO 3.3 % Normal 07/02/2024 0 - 6 [facility] BASOPHILS NFR BLD AUTO 0.7 % Normal 07/02/2024 0 - 2 [facility] RDW RBC AUTO RTO 14.7 % Normal 07/02/2024 12.1 - 16.2 [facility] EOSINOPHIL NO. BLD AUTO 0.3 K/uL Normal 07/02/2024 0 - 0.5 [facility] HCT VFR BLD AUTO 41.2 % Normal 07/02/2024 37 - 47 [facility] DIFFERENTIAL TYPE AUTOMATED Normal 07/02/2024 C [facility] RBC NO. BLD AUTO 4.76 M/uL Normal 07/02/2024 4.2 - 5.4 [facility] NEUTROPHILS NFR BLD AUTO 53.3 % Normal 07/02/2024 44 - 74 [facility] LYMPHOCYTES NO. BLD AUTO 2.9 K/uL Normal 07/02/2024 1 - 3.2 [facility] BASOPHILS IN BLOOD BY AUTOMATED COUNT 0.1 K/uL Normal 07/02/2024 0 - 0.2 [facility] NEUTROPHILS NO. BLD AUTO 4.3 K/uL Normal 07/02/2024 1.8 - 7.8 [facility] HGB BLD MCNC 13.5 g/dL Normal 07/02/2024 12.5 - 16 [facility] MG MCH RBC QN AUTO 28.4 pg Normal 07/02/2024 25 - 33 CTT HN[facility]G MCHC RBC AUTO MCNC 32.8 g/dL Normal 07/02/2024 32 - 36 [facility] MONOCYTES NFR BLD AUTO 7.2 % Normal 07/02/2024 2 - 12 [facility] MCV RBC AUTO 86.6 fL Normal 07/02/2024 78 - 100 [facility] MG MONOCYTES NO. BLD AUTO 0.6 K/uL Normal 07/02/2024 0 - 0.8 [facility] LYMPHOCYTES NFR BLD AUTO 35.5 % Normal 07/02/2024 20 - 48 [facility] WBC NO. BLD AUTO 8.2 K/uL Normal 07/02/2024 4 - 10.5 CT [facility] History of Medication Use Medication Directions Dispensed Refills Start Date End Date Status hydroCHLOROthiazide 12.5 mg tablet TAKE 1 TABLET BY MOUTH 1 TIME EACH DAY. 5 active cetirizine (ZyrTEC) 10 mg tablet Take 1 tablet (10 mg total) by mouth 1 (one) time each day. 5 active celecoxib (CeleBREX) 200 mg capsule TAKE 1 CAPSULE BY MOUTH TWICE A DAY NEEDED FOR PAIN WITH FOOD AND STAY HYDRATED 5 active Vitamin B-6 250 mg tablet TAKE 1 TABLET BY MOUTH EVERY DAY 5 active thiamine 100 mg tablet Take 1 tablet (10 0 mg total) by mouth 1 (one) time each day. 5 active atorvastatin (LIPITOR) 10 mg tablet Take 1 tablet (10 mg total) by mouth 1 (one) time each day. 4 active lisinopriL (PRINIVIL,ZESTRIL) 30 mg tablet Take 1 tablet (30 mg total) by mouth 1 (one) time each day. 4 active metoprolol tartrate (LOPRESSOR) 50 mg tablet Take 1 tablet (50 mg total) by mouth 2 (two) times a day. 4 active methylPREDNISolone (MEDROL DOSEPACK) 4 MG tablet follow package directions 4 active metoprolol tartrate (LOPRESSOR) tablet 25 mg 25 mg, Oral, 2 times daily, First dose (after last modification) on 07/19/24 at 2300Hold for sbp <90 4 aborted iopamidol (ISOVUE-370) 76 % injection 85 mL 85 mL, Intravenous, IMG once as needed, contrast, Starting on 07/19/24 at 2103, For 1 dose, Radiology Contrast 4 024 completed phenazopyridine (PYRIDIUM) tablet 95 mg 95 mg, Oral, 3 times daily with meals, First dose on 07/18/24 at 1200, For 3 doses 4 024 completed bisacodyl (DULCOLAX) suppository 10 mg 10 mg, Rectal, Once as needed, constipation, Starting on Sat07/17/24 at 0000, For 1 doseAdminister POD#2 if no BM 4 024 completed pantoprazole (PROTONIX) 40 MG EC tablet 40 mg 40 mg, Oral, Every Morning on an empty stomach (Daily), First dose on Sat07/17/24 at 0600Please select an indication: Pre-Medication 4 active senna (SENOKOT) 8.6 MG tablet Take 1 tablet by mouth 2 (two) times a day. 4 active amoxicillin (AMOXIL) 500 mg tablet Take 4 tablets, p.o., once, 1 hour prior to procedure. 4 active spironolactone (ALDACTONE) 100 mg tablet 4 active celecoxib (CeleBREX) 200 mg capsule Take 1 capsule (200 mg total) by mouth 2 (two) times a day if needed (PAIN). TAKE WITH FOOD AND STAY HYDRATED 4 active hydroCHLOROthiazide (HYDRODIURIL) 25 mg tablet Take 1 tablet (25 mg total) by mouth 1 (one) time each day. 4 active traZODone (DESYREL) 50 MG tablet Take 1 tablet (50 mg total) by mouth every night at bedtime. 4 024 aborted traZODone (DESYREL) 50 mg tablet Take 1 tablet (50 mg total) by mouth at bedtime. 4 active metoprolol tartrate (LOPRESSOR) tablet 50 mg 50 mg, Oral, 2 times daily, First dose (after last modification) on Sat07/21/24 at 0900Hold for sbp <90 4 024 active metoprolol tartrate (LOPRESSOR) 50 mg tablet Take 1 tablet (50 mg total) by mouth 2 (two) times a day. 4 active Multiple Vitamin (Daily-Michelle Multivitamin) TABS Take 1 tablet by mouth daily. 4 active thiamine (VITAMIN B-1) 100 MG tablet TAKE 2 AND 1/2 TABS BY MOUTH EVERY DAY 4 active nystatin (MYCOSTATIN) ointment APPLY TOPICALLY TO AFFECTED AREAS TWICE A DAY FOR 10 DAYS 4 active nystatin (MYCOSTATIN) ointment Apply topically to affected areas twice a day for 10 days 4 active hydroCHLOROthiazide (HYDRODIURIL) tablet 25 mg 25 mg, Oral, Daily, First dose on Sat07/17/24 at 0900 4 024 aborted atorvastatin (LIPITOR) 10 mg tablet Take 1 tablet (10 mg total) by mouth 1 (one) time each day. 4 active traMADoL (ULTRAM) 50 mg tablet Take 1 tablet (50 mg total) by mouth every 6 (six) hours if needed for moderate pain or severe pain. 4 active clotrimazole (LOTRIMIN) 1 % cream APPLY TO SKIN AND TOENAILS DAILY FOR 12 WEEKS 4 active clotrimazole (LOTRIMIN) 1 % cream APPLY TO SKIN AND TOENAILS DAILY FOR 12 WEEKS 4 active clotrimazole (LOTRIMIN) 1 % cream Apply to skin and toenails daily for 12 weeks 4 active oxyBUTYnin XL (DITROPAN-XL) 10 mg 24 hr tablet Take 1 tablet (10 mg total) by mouth 1 (one) time each day. for 360 days 4 active multivitamin (MULTIPLE VITAMINS ORAL) Take 1 tablet by mouth 1 (one) time each day. 4 active omeprazole (PriLOSEC) [address] capsule Take 1 capsule (20 mg total) by mouth 1 (one) time each day. 4 active pyridoxine (B-6) 250 mg tablet 4 active thiamine 100 mg tablet 4 active ubrogepant (Ubrelvy) 100 mg tablet 4 active ubrogepant (Ubrelvy) 100 mg tablet 4 active melatonin 3 mg tablet Take 1 tablet (3 mg total) by mouth at bedtime. 4 active cholecalciferol (VITAMIN D-3) 50 mcg (2,000 unit) capsule Take 1 capsule (2,000 Units total) by mouth 1 (one) time each day. 4 active ondansetron (ZOFRAN) 4 mg tablet Take 1 tablet (4 mg total) by mouth every 8 (eight) hours if needed for nausea. 2 active diclofenac (VOLTAREN) 1 % topical gel Apply 4 g topically 2 (two) times a day. 2 active SUMAtriptan (IMITREX) 50 mg tablet TAKE 1 TABLET BY MOUTH AT LEAST 2 HOURS BETWEEN DOSES NEEDED FOR 30 DAY SUPPLY 2 active polyethylene glycol (MIRALAX) 17 gram packet Take 17 g by mouth 1 (one) time each day. 1 active polyethylene glycol (MIRALAX) 17 gram packet Take 17 g by mouth 1 (one) time each day. 1 active gabapentin (NEURONTIN) 300 MG capsule Take 1 capsule (300 mg total) by mouth 2 (two) times a day. 1 tab in am; 2 at night 7 active gabapentin (NEURONTIN) capsule 300 mg 300 mg, Oral, 2 times daily, First dose on Torie 07/16/24 at 1800 7 active ondansetron (ZOFRAN) 4 MG tablet Every 8 Hours as needed for Nausea 5 024 active traMADol (ULTRAM) 50 MG tablet Take 50 mg by mouth. 4 024 aborted acetaminophen (TYLENOL) 500 mg tablet Take 2 tablets (1,000 mg total) by mouth 3 (three) times a day. active acetaminophen (TYLENOL) 650 MG CR tablet Take 1 tablet (650 mg total) by mouth. active cyclobenzaprine (FLEXERIL) 10 MG tablet Take 1 tablet (10 mg total) by mouth 3 (three) times a day as needed for muscle spasms. active galcanezumab-gnlm (Emgality Pen) 120 mg/mL injection pen Inject under the skin. active galcanezumab-gnlm (EMGALITY) 120 MG/ML injection Inject under the skin. never received active galcanezumab-gnlm (EMGALITY) 120 MG/ML injection Inject under the skin. never received active ketoconazole (NIZORAL) 2 % shampoo USE ONCE DAILY A FACE WASH active No known medications No known medications active No known medications No known medications active onabotulinumtoxinA (Botox) 200 unit injection active pyridoxine HCl, vitamin B6, (PYRIDOXINE, VITAMIN B6, ORAL) Take by mouth. act dwgiht spironolactone (ALDACTONE) 100 MG tablet Take 1 tablet (100 mg total) by mouth every night at bedtime. active Allergies Allergen Reaction Severity Comment Documented Date Source Statu s ADHESIVE TAPE-SILICONES RASH Paper tape 01/04/2021 [facility] active TAPE OTHER (SEE COMMENTS) Other reaction(s): Rash/Dermati tis,Paper tape 01/04/2021 [facility] active SULFATE ION HIVES 03/14/2017 [facility] active SULFA (SULFONAMIDE ANTIBIOTICS) HIVES 01/26/2015 [facility] active SULFA ANTIBIOTICS RASH Other reaction(s): HIVES 01/26/2015 [facility] active Problems Problem Status Onset Date Problem Type Date of Resolution Source Chest pain active 2021-04-20 4 ProblemAct [facility] Acute bilateral low back pain without sciatica active 2024-09-20 7 ProblemAct [facility] Diastolic hypertension active 2021-04-20 4 ProblemAct [facility] Urinary incontinence active 2018-06-21 4 ProblemAct [facility] DVT (deep venous thrombosis) (CMS/HCC V24, CMS/HCC V28) active 2019-03-21 2 ProblemAct [facility] Abnormal EKG active 3 ProblemAct [facility] Depression with anxiety active 2015-12-21 4 ProblemAct [facility] Brachial radiculitis active 2021-09-21 1 ProblemAct [facility] 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 active 2021-12-20 2 ProblemAct [facility] Status post total bilateral knee replacement active 4 ProblemAct [facility] Chronic pain of both shoulders active 2024-12-19 0 ProblemAct [facility] Displacement of lumbar intervertebral disc without myelopathy active 2021-09-21 1 ProblemAct [facility] Primary osteoarthritis of both first carpometacarpal joints active 2021-04-21 7 ProblemAct [facility] Epigastric pain active 2024-07-21 8 ProblemAct [facility] Chronic back pain active 2018-06-21 4 ProblemAct [facility] Lumbosacral radiculitis active 2021-09-21 1 ProblemAct [facility] Nausea and vomiting active 2024-07-21 8 ProblemAct [facility] Nontraumatic incomplete tear of right rotator cuff active 2024-12-19 0 ProblemAct [facility] Arthritis of right glenohumeral joint active 2024-12-19 0 ProblemAct [facility] Other muscle spasm active 2024-09-20 7 ProblemAct [facility] Degenerative joint disease of cervical spine active 2018-06-21 4 ProblemAct [facility] Post-thrombotic syndrome active 2019-03-21 6 ProblemAct [facility] Occipital headache active 2021-09-21 1 ProblemAct [facility] Neck pain active 2023-01-20 7 ProblemAct [facility] Cervical post-laminectomy syndrome active 2021-09-21 1 ProblemAct [facility] Rotator cuff syndrome of left shoulder active 2024-12-19 0 ProblemAct [facility] Degeneration of cervical intervertebral disc active 2021-09-21 1 ProblemAct [facility] Insomnia active 2015-05-22 0 ProblemAct [facility] Lumbar degenerative disc disease active 2018-01-19 2 ProblemAct [facility] GERD (gastroesophageal reflux disease) active 2016-08-21 6 ProblemAct [facility] Diarrhea active 2024-07-21 8 ProblemAct [facility] Hyperlipidemia active 2017-11-21 7 ProblemAct [facility] S/P lumbar fusion active 2024-09-20 7 ProblemAct [facility] Sleep apnea active 2018-01-19 2 ProblemAct [facility] Breast microcalcification, mammographic active 1 ProblemAct [facility] Vitamin D deficiency active 2015-01-20 8 ProblemAct [facility] Inadequate oral intake active EncounterDiagnosi sAct [facility] Class 2 obesity active 2024-06-21 2 ProblemAct [facility] Radiculopathy, lumbar region active EncounterDiagnosisAct [facility] MG DDD (degenerative disc disease), lumbar active 2024-06-22 6 ProblemAct [facility] Class 2 obesity active 2024-06-21 2 ProblemAct [facility] Pain active EncounterDiagnosisAct [facility] Anemia active EncounterDiagnosisAct [facility] Primary osteoarthritis of left knee active 2 ProblemAct [facility] Primary osteoarthritis of both knees active 2018-01-19 2 ProblemAct [facility] Status post total left knee replacement active 2024-09-20 7 ProblemAct [facility] Immunizations Vaccine Date Source Lot Number Status Influenza trivalent, 0.5mL, preservative free (Fluarix; FluLaval; Fluzone) ages 6mo and older (Afluria) 3 years and older [facility]20/2022 [id number] completed Influenza trivalent, 0.5mL, preservative free (Fluarix; FluLaval; Fluzone) ages 6mo and older (Afluria) 3 years and older 07/21/2021 [facility] [id number] completed Moderna SARS-CoV-2 COVID-19, mRNA, LNP-S, preservative free 03/22/2021 [facility] [id number] completed Moderna SARS-CoV-2 COVID-19, mRNA, LNP-S, preservative free 02/17/2021 [facility] [id number] completed Influenza Quadravalent, MDCK , 0.5ml, preservative free (Flucelvax) 6mo and older 07/22/2020 [facility] [id number] completed Hepatitis B (Dvlmily-T-Erqdl , Recombivax HB-Adult) 19yo and older 10/27/2019 [facility] [id number] complet ed Influenza Quadravalent, MDCK , 0.5ml, preservative free (Flucelvax) 6mo and older 07/09/2019 [facility] [id number] completed Hepatitis B (Pdyczwp-P-Rgvvm , Recombivax HB-Adult) 19yo and older 05/26/2019 [id number] complet ed Hepatitis B (Nyyjati-E-Smqfl , Recombivax HB-Adult) 19yo and older 04/22/2019 [facility] complet ed Influenza trivalent, 0.5mL, preservative free (Fluarix; FluLaval; Fluzone) ages 6mo and older (Afluria) 3 years and older 07/05/2018 [facility] [id number] completed Influenza Quadravalent, MDCK , 0.5ml, preservative free (Flucelvax) 6mo and older 11/15/2017 [facility] [id number] completed Encounters Encounter Type Encounter Reason Primary Diagnosis Location Date Ambulatory Arthrodesis status Arthrodesis status [facility] 04/30/2025 Ambulatory Arthrodesis status Arthrodesis status [facility] 04/30/2025 Ambulatory Arthrodesis status Arthrodesis status [facility] 03/30/2025 Ambulatory Low back pain, unspecified Low back pain, unspecified [facility] 10/06/2024 Ambulatory Arthrodesis status Arthrodesis status [facility] 09/18/2024 Ambulatory Arthrodesis status Arthrodesis status [facility] 09/15/2024 Ambulatory [facility] 08/18/2024 Inpatient Pain, unspecified Pain, unspecified [facility] 07/16/2024 Ambulatory [facility] 06/25/2024 Ambulatory Spinal stenosis, lumbar region with neurogenic claudication Spinal stenosis, lumbar region with neurogenic claudication [facility] 05/12/2024 Ambulatory Spinal stenosis, lumbar region with neurogenic claudication Spinal stenosis, lumbar region with neurogenic claudication [facility] 05/12/2024 Ambulatory Spinal stenosis, lumbar region with neurogenic claudication Spinal stenosis, lumbar region with neurogenic claudication [facility] 05/12/2024 Ambulatory Radiculopathy, site unspecified Radiculopathy, site unspecified [facility] 06/05/2023 Care Team Organization Name Specialty Phone Email Start Date End Da te [facility] 10/09/2024 [facility] 10/06/2024 [facility] 08/29/2024 [facility] 08/27/2024 [facility] 05/04/2025 [facility] 06/05/2023 06/05/2023
== END 2025-05-25 12:21 | disposition home or self-care (01) ==
LOC: HO.HSMS 11:04
PROVIDERS: PCP Internal Medicine; Visit Provider Nurse Practitioner Family
DX: G43.009 Migraine without aura, not intractable, without status migrainosus (principal); G51.32 Clonic hemifacial spasm, left; G51.0 Bell's palsy; G47.33 Obstructive sleep apnea (adult) (pediatric); D35.2 Benign neoplasm of pituitary gland
CPT/HCPCS: 99214; G2211

== ENCOUNTER → 2025-05-25 11:03 | Outpatient (BNVA) | payer OTHER, SELFPAY | PROVIDERS: PCP Internal Medicine; Visit Provider Nurse Practitioner Family | DX: G47.33 Obstructive sleep apnea (adult) (pediatric) (principal); G43.009 Migraine without aura, not intractable, without status migrainosus; G51.32 Clonic hemifacial spasm, left; G51.0 Bell's palsy; D35.2 Benign neoplasm of pituitary gland | CPT/HCPCS: 99212 ==

== ENCOUNTER 2025-06-01 09:57 | Outpatient (AMB) | payer OTHER, SELFPAY ==
--- NOTE | 2025-06-01 10:15 | A.OFFVIS_ITS ---
Vital Signs 06/01/25 10:16 Height 5 ft 4 in Weight 189 lb 6 oz BMI 32.5 BP 124/84 Blood Pressure Location Lt brachial Position Sitting Pulse 83 Pulse Source Pulse Oximeter Pulse Oximetry (%) 93 Oxygen Delivery Method Room Air Intake Visit Reasons: Botox Intake Note: Botox [facility] Department Chair Required: No Accompanied by: Self / Same As Patient Allergies Sulfa (Sulfonamide Antibiotics) Allergy (Mild, Verified 06/01/25 10:19) Hives adhesive tape Adverse Reaction (Mild, Verified 05/25/25 11:05) Rash Medication List - Last Reconciled 06/01/25 by Florina Perla MD acetaminophen 500 mg PO Q6H PRN acetaminophen ER (Tylenol 8 Hour) 650 mg PO Q12H atorvastatin 10 mg PO DAILY celecoxib 0 mg PO cetirizine (Zyrtec) 10 mg PO DAILY PRN cholecalciferol (vitamin D3) (Vitamin D3) 50 mcg PO DAILY cyclobenzaprine 10 mg PO BID 30 days diclofenac sodium 1% 4 grams topical BID gabapentin 300 mg PO TID 30 days galcanezumab-gnlm (Emgality Pen) 240 mg (2 mL) subcut ONCE 30 days hydrochlorothiazide 25 mg PO DAILY ketoconazole 2% topical lisinopril 30 mg PO DAILY melatonin 6 mg (2 x 3 mg) PO DAILY 90 days metoprolol tartrate 50 mg PO BID onabotulinumtoxinA (Botox) 100 units IM ONCE 12 weeks ondansetron HCl 4 mg PO Q8H PRN polyethylene glycol 3350 17 grams PO DAILY pyridoxine (vitamin B6) (Vitamin B-6) 250 mg PO DAILY sertraline 100 mg PO DAILY thiamine HCl (vitamin B1) mg PO tramadol 50 mg PO QID PRN trazodone 50 mg PO BEDTIME ubrogepant (Ubrelvy) 50 - 100 mg (0.5 - 1 x 100 mg) PO ONCE PRN 30 days HPI Comments Details: 59y/o female comes for treatment of her left hemifacial spasm with botox Effectiveness of last two botox: Change in intensity of spasms- decreased Change in frequency of spasms- decreased Changes in quality of life- improved Have at least three months elapsed since last treatment (Last botox date - frequency of injections)?- 4 months ago Botulinum toxin type A 100 units Lot no [id number] X 1 Exp 07/2027 was diluted with 1 cc of normal saline at a concentration of 5 units in 0.1 cc. Side effects were discussed and an informed consent was obtained. Muscles injected left Lateral canthus - 10 units each left Lateral Lower eyelid-10units each left zygomaticus 10 units left Nasolabial fold 10 units each Venkata temporlais 20 units each Total used 80units discarded 20 units PFSH Medical History Radiculopathy Cervical radiculopathy at C7 Hirsutism Vitamin D deficiency Insomnia Depression with anxiety GERD (gastroesophageal reflux disease) HLD (hyperlipidemia) Obstructive sleep apnea Urinary incontinence Post-thrombotic syndrome Congestive heart failure (CHF) Degenerative disc disease, cervical Osteoarthritis Lumbosacral radiculitis Cervical post-laminectomy syndrome Brachial radiculitis Surgical History Hx of knee surgery H/O breast biopsy History of lumbar spinal fusion S/P laparoscopic surgery Hx of tubal ligation History of total knee replacement (TKR) Hx of neck surgery Hx of hand surgery Hx of colonoscopy Family History Mother Breast CA DM (diabetes mellitus) HTN (hypertension) Arthritis ESRD (end stage renal disease) Father Arthritis ESRD (end stage renal disease) Maternal Aunt Breast CA Social History Household Members: None Alcohol intake: current Alcohol intake frequency: a few times a week Patient Tobacco Use Status: Never used Tobacco Substance Use Type: Marijuana Physical Exam Vital Signs: Last Vital Signs Pulse 83 06/01/25 10:16 BP 124/84 06/01/25 10:16 Pulse Ox 93 06/01/25 10:16 Oxygen Delivery Method Room Air 06/01/25 10:16 BMI result Body Mass Index 32.5 Const Other: left hemifacial spasm General: cooperative and no acute distress Orientation/consciousness: patient oriented x3 Resp Effort & Inspection: normal respiratory effort and able to speak in complete sentences Neuro Other: Left hemifascial spasm/droop Able to slowly step-off of exam table, so steady gait with cane. General: patient oriented x3 Cognition (Neuro): normal cognition Psych Appearance: grossly normal Mental Status: mental status grossly normal Speech and movement: Normal speech and movement present Affect: normal affect Attitude: cooperative Office Procedures Botulinum toxin Injection 50700 - Facial Nerve Procedure code (CPT) selection complete Office Meds onabotulinumtoxinA 100 unit solution for injection Performing Provider: Florina Perla MD Performing Location: [facility] Administered by: Florina Perla MD on 06/01/25 13:47 Dose Route Admin Location Dispensed Lot Number Expiration Date [facility] 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 Total Dispensed Waste 100 units 20 % Comments: see HPI Assessment & Plan Assessment & Plan (1) Hemifacial spasm of left side of face: Code(s): G51.32 - Clonic hemifacial spasm, left Category: Medical Plan Patient tolerated the procedure well she will call with any side effects Orders: Orders AMB Botulinum toxin Injection Today G51.32 - Clonic hemifacial spasm, left Coding Level of Care Code Est Pt Level 1 (56007) Diagnoses Hemifacial spasm of left side of face G51.32 CPT Codes Botox Injection - Botox 2: 01146 - Facial Nerve ([id number])
[2025-06-01 10:16] VITALS: BP 124/84; PULSE 83; O2SAT 93; BMI 32.5
--- OUTSIDE RECORDS SUMMARY | 2025-06-01 10:50 | XMS_ITS | Clinical Summary ---
Author Organization [facility] Building Address [address] [place] [address] Phone Care Team Providers Care Office Admin Name Role Phone Mily Lawrence MD Primary Care Provider [phone] Allergies Active Allergy Reactions Criticality Noted Date [...] daily for 12 weeks 03/26/20 24 Active cyclobenzaprine (FLEXERIL) 10 mg tablet Take 1 tablet (10 mg total) by mouth 2 (two) times a day. 07/02/20 24 Active diclofenac (VOLTAREN) 1 % topical gel Apply 4 g topically 2 (two) times a day. 02/22/20 22 Active gabapentin (NEURONTIN) 300 mg capsule Take 1 capsule (300 mg total) by mouth 3 (three) times a day. 04/02/20 24 Active galcanezumab-gn lm (Emgality Pen) 120 mg/mL injection pen Inject under the skin. Active ketoconazole (NIZORAL) 2 % shampoo USE ONCE DAILY A FACE WASH Active onabotulinumtox Darlene (Botox) 200 unit injection Activ e ondansetron (ZOFRAN) 4 mg tablet Take 1 tablet (4 mg total) by mouth every 8 (eight) hours if needed for nausea. 05/01/20 22 Active traMADoL (ULTRAM) 50 mg tablet Take 1 tablet (50 mg total) by mouth every 6 (six) hours if needed for moderate pain or severe pain. 04/16/20 24 Active back brace miscIndications :S/P lumbar fusion LSO brace. Use when ambulating and for comfort Status post lumbar fusion Length of use: 99 1 each 09/18/20 24 Active metoprolol tartrate (LOPRESSOR) 50 mg tablet Take 1 tablet (50 mg total) by mouth 2 (two) times a day. 180 tablet 3 09/24/20 24 Active lisinopriL (PRINIVIL,ZESTR IL) 30 mg tablet Take 1 tablet (30 mg total) by mouth 1 (one) time each day. 90 tablet 2 09/24/20 24 Active atorvastatin (LIPITOR) 10 mg tablet Take 1 tablet (10 mg total) by mouth 1 (one) time each day. 90 tablet 2 09/24/20 24 Active cholecalciferol (VITAMIN D-3) 50 mcg (2,000 unit) capsule TAKE 1 CAPSULE BY MOUTH EVERY DAY 90 capsule 3 11/19/19 25 Active sertraline (ZOLOFT) 100 mg tablet TAKE 1 TABLET BY MOUTH EVERY DAY 84 tablet 2 11/19/19 25 Active thiamine 100 mg tablet Take 1 tablet (100 mg total) by mouth 1 (one) time each day. 210 tablet 1 12/14/19 25 Active hydroCHLOROthia zide 12.5 mg tablet TAKE 1 TABLET BY MOUTH 1 TIME EACH DAY. 28 tablet 5 03/12/20 25 Active omeprazole (PriLOSEC) [address] capsule TAKE 1 CAPSULE BY MOUTH EVERY DAY 28 capsule 2 04/08/20 25 Active Daily-Michelle, with folic acid, 400 mcg tablet TAKE 1 TABLET BY MOUTH EVERY DAY 28 tablet 2 04/08/20 25 Active Vitamin B-6 250 mg tablet TAKE 1 TABLET BY MOUTH EVERY DAY 28 tablet 2 04/08/20 25 Active melatonin 3 mg tablet TAKE 1 TABLET BY MOUTH EVERYDAY AT BEDTIME 28 tablet 2 04/08/20 25 Active celecoxib (CeleBREX) 200 mg capsuleIndicati ons:Presence of left artificial knee joint TAKE 1 CAPSULE BY MOUTH TWICE A DAY NEEDED FOR PAIN TAKE WITH FOOD STAY HYDRATED 60 capsule 3 05/07/20 25 Active traZODone (DESYREL) 50 mg tablet TAKE 1 TABLET BY MOUTH EVERY NIGHT AT BEDTIME. 28 tablet 6 05/07/20 25 Active cetirizine (ZyrTEC) 10 mg tabletIndicatio ns:Seasonal allergies TAKE 1 TABLET BY MOUTH 1 TIME EACH DAY. 28 tablet 2 05/11/20 25 Active nystatin (MYCOSTATIN) ointment Apply topically to affected areas twice a day for 10 days 05/12/20 24 025 traZODone (DESYREL) 50 mg tablet TAKE 1 TABLET BY MOUTH EVERYDAY AT BEDTIME 90 tablet 1 11/19/19 25 025 Discontinued celecoxib (CeleBREX) 200 mg capsuleIndicati ons:Presence of left artificial knee joint TAKE 1 CAPSULE BY MOUTH TWICE A DAY NEEDED FOR PAIN WITH FOOD AND STAY HYDRATED 60 capsule 3 01/19/20 25 025 Discontinued cetirizine (ZyrTEC) 10 mg tabletIndicatio ns:Seasonal allergies Take 1 tablet (10 mg total) by mouth 1 (one) time each day. 30 each 2 02/20/20 25 025 Discontinued amoxicillin (AMOXIL) 500 mg capsuleIndicati ons:Status post total bilateral knee replacement Take 4 capsules (2,000 mg total) by mouth 1 (one) time for 1 dose. TAKE 4 CAPSULES 1 HOUR PRIOR TO DENTAL APPOINTMENT 4 each 2 05/28/20 25 025 Hospital, Clinic, or Other Facility Administered Medication Ordered Dose Route Frequency Start Date End Date Status BUPivacaine HCl (MARCAINE) 0.25 % injection 3 mLIndications:Chroni c pain of both shoulders,Rotator cuff syndrome of left shoulder 3 mL inj Once PRN Procedure 05/05/2025 05/05/2025 Ended lidocaine (XYLOCAINE) 1 % injection 3 mLIndications:Chroni c pain of both shoulders,Rotator cuff syndrome of left shoulder 3 mL inj Once PRN Procedure 05/05/2025 05/05/2025 Ended triamcinolone acetonide (KENALOG-40) 40 mg/mL injection 40 mgIndications:Chroni c pain of both shoulders,Rotator cuff syndrome of left shoulder 40 mg IAtc Once PRN Procedure 05/05/2025 05/05/2025 Ended Active Problems Problem Noted Date Diagnosed Date Status post total bilateral knee replacement 01/2025 Rotator cuff syndrome of left shoulder Arthritis of right glenohumeral joint 12/28/2024 Nontraumatic incomplete tear of right rotator cu ff 12/28/2024 Chronic pain of both shoulders 12/28/2024 S/P lumbar fusion 10/06/2024 Acute bilateral low back pain without sciatica 1 12/07/2023 Other muscle spasm 10/06/2024 Diarrhea 08/07/2024 Epigastric pain 08/07/2024 Nausea and vomiting 08/07/2024 Neck pain 02/14/2023 Overview (08/07/2024): Last Assessment [...] Post-thrombotic syndrome 04/05/2019 DVT (deep venous thrombosis) ([facility] V24, CMS/ CC V28) 04/01/2019 Overview (08/07/2024): 02/2019 on Xarelto Chronic back pain 07/04/2018 Degenerative joint disease of cervical spine Urinary incontinence 07/04/2018 Lumbar degenerative disc disease 01/30/2018 Overview (08/07/2024): Last Assessment & Plan: Ms. Sung is about 12 days status post L3-4 DLIF with anterior spinal instrumentation performed by Dr. Hayward at [facility] [place]. This the surgery, she has been a patient in rehab at [address] [place] [address]. While there, she is participating in physical therapy. She denies any significant improvement from her preoperative symptoms. She is neurologically intact. Her incision is healing nicely. There were no signs or symptoms of infection. We talked about postoperative course, timeframe, and nerve healing. She agreed to be patient. She will follow- up with Dr. Hayward for her regularly scheduled second postop visit. Sleep apnea 01/30/2018 Overview (08/07/2024): On CPAP started 2017 Hyperlipidemia 12/07/2017 Breast microcalcification, mammographic 10/21/19 Essential hypertension 03/14/2017 GERD (gastroesophageal reflux disease) 6 Depression with anxiety 01/12/2016 Insomnia 06/09/2015 Vitamin D deficiency 02/15/2015 Resolved Problems Problem Noted Date Diagnosed Date Resolved Date Status post total left knee replacement 10/06/2024 03/24/2025 Primary osteoarthritis of left knee 02/19/2023 03/24/2025 Primary osteoarthritis of both knees 01/30/2018 03/24/2025 Encounters Date Type Department Care Team Description 05/28/2025 Telephone Orthopedic Surgery [facility] [address] [facility] [address] [place] [phone] Brian Ferrari MD 05/05/2025 10:00 AM EDT Office Visit Orthopedic Surgery [facility] [address] [facility] [address] [place] [phone] Aida White PA Chronic pain of both shoulders (Primary Dx); Arthritis of right glenohumeral joint; Rotator cuff syndrome of left shoulder 04/30/2025 8:00 AM EDT - 04/30/2025 11:59 PM EDT Hospital Encounter [facility] Xray [address] [place] [phone] S/P lumbar fusion Discharge Disposition: Home or Self Care 04/30/2025 7:06 AM EDT - 04/30/2025 11:59 PM EDT Hospital Encounter [facility] MRI [address] [place] [phone] S/P lumbar fusion Discharge Disposition: Home or Self Care 04/28/2025 Telephone Neurosurgery - [facility] [address] [place] [phone] Nathan Hayward MD no auth yet 04/13/2025 Telephone Internal Medicine [facility] 175 [facility] [address] [place] [phone] Mily Lawrence MD 04/05/2025 3:35 PM EDT Ancillary Procedure Orthopedic Surgery [facility] [address] [facility] [address] [place] [address] 04/05/2025 3:00 PM EDT Office Visit Orthopedic [facility] [address] [facility] [address] [place] [phone] Opal Kenney MD Arthritis of right glenohumeral joint (Primary Dx) 03/30/2025 3:00 PM EDT Office Visit Neurosurgery [facility] [address] [place] [phone] Nathan Hayward MD S/P lumbar fusion (Primary Dx) 03/24/2025 9:30 AM EDT Office Visit Orthopedic Surgery [facility] [address] [facility] [address] [place] [phone] Brian Ferrari MD Follow-up exam (Primary Dx); Status post total bilateral knee replacement; Neuralgia of thigh, left; Gait instability 03/12/2025 3:30 PM EDT Office Visit Orthopedic Surgery [facility] [address] [phone] Aida White PA Chronic pain of both shoulders (Primary Dx); Nontraumatic incomplete tear of right rotator cuff; Arthritis of right glenohumeral joint; Rotator cuff syndrome of left shoulder; Cervical post-laminectomy syndrome 03/08/2025 2:51 PM EDT - 03/08/2025 11:59 PM EDT Hospital [facility]counter [facility] [address] [phone] Encounter for screening mammogram for malignant neoplasm of breast Discharge Disposition: Home or Self Care from Last 3 Months Immunizations Name Administration Dates Next Due Hepatitis B (Gxguhvr-N-Zhprd , Recombivax HB-Adult) 19yo and older 10/27/2019,05/26/2019,04/22/2019 [...] 1 INTERSPACE; Surgeon: Nathan Hayward MD; Location: [facility]); Service: Spine; Laterality: N/A; NECK SURGERY 2007 PROCEDURE: HISTORICAL NECK SURGERY; COMMENT: C-spine; arthrodesis HAND SURGERY 1989 Bilateral PROCEDURE: HISTORICAL HAND SURGERY; COMMENT: right tendo repair; left thumb x2; region with pins in place TUBAL LIGATION 2007 PROCEDURE: HISTORICAL TUBAL LIGATION OTHER SURGICAL HISTORY 09/2017 PROCEDURE: CA ARTHRD ANT INTERBODY MIN DSC LUMBAR COLONOSCOPY 2017 PROCEDURE: HISTORICAL COLONOSCOPY TOTAL KNEE ARTHROPLASTY 02/03/2019 Right PROCEDURE: HISTORICAL TOTAL KNEE REPLACE BREAST BIOPSY 10/08/2013 PROCEDURE: CA BX BREAST NEEDLE CORE W/O IMAGING GUIDANCE SPX; COMMENT: in [place],no evidence of malignancy OTHER SURGICAL HISTORY 1997 [...] under breast and belly Deep vein thrombosis ([facility]/ C V24, [facility] V28) DX:Deep vein thrombosis ([facility]);COMMENT:right knee after surgery Sleep apnea 01/30/2018 [...] replacement; COMMENT: 01/2019 DVT (deep venous thrombosis) ([facility] V24, [facility] V28) 04/01/2019 DX:DVT (deep venous thrombos is) ([facility]); COMMENT: 02/2019 on Xarelto Epigastric pain DX:Epigastric pa in Nausea and vomiting DX:Nausea an d vomiting Diarrhea DX:Diarrhea Family History Medical History Relation Name Comments Breast cancer Aunt maternal mat aunt ting t ca 30s and again 40s Arthritis Father Drug abuse Father Kidney disease Father Arthritis Mother Bilateral breast cancer Mother daria st in 30s and 40s Breast cancer Mother mother breast ca in her 30s and again in her 40s COPD Mother Diabetes Mother 04/2023 ESRD Mother Hypertension Mother [...] for your loved ones. For example, child health associate or elderly care for an older adult? [...] is your living situation? 0 12/22/2024 Comments No Sex and Gender Information Value Date Recorded Sex Assigned at Female 08/24/2024 4:29 PM EST Legal Sex Female 11:54 AM EST Gender Identity Female 08/24/2024 4:29 PM EST Sexual Orientation Straight 08/24/2024 4: 43 PM EST Obstetrics History Para Term AB IAB SAB Ectopic Multiple Livin g Live Births 2 Last Filed Vital Signs Vital Sign Reading Time Taken Comments Blood Pressure 147/92 03/30/2025 3:05 PM EDT Pulse 63 03/30/2025 3:05 PM EDT Temperature 36.5 C (97.7 F) 03/30/2025 3:05 PM EDT Respiratory Rate - - Oxygen Saturation 97% 03/30/2025 3:05 PM EDT Inhaled Oxygen Concentration - - Weight 85 kg (187 lb 6.3 oz) 04/29/2025 12:20 PM EDT Height 162.6 cm (5' 4.02 ) 04/29/2025 12:20 PM E DT Body Mass Index 32.15 04/29/2025 12:20 PM EDT Plan of Treatment Upcoming Encounters Date Type Department Care Team (Late st Contact Info) Description 06/03/2025 9:45 AM EDT Office Visit Neurosurgery - [facility] [address] [place] [phone] Nathan Hayward MD [address] [place] [address] 06/07/2025 3:00 PM EDT Office Visit Internal Medicine [facility] [address] [facility] [address] [place] [address] Jessa Gandhi NP [address] [facility] [address] [place] [address] 06/09/2025 2:30 PM EDT Consult Orthopedic Surgery - [facility] [address] [facility] [address] [place] [phone] Trey Richter MD [address] [facility] [address] [place] [address] Health Maintenance Due Date Last Done Comments DTaP,Tdap,and Td Vaccines (1 - Tdap) 1986 Pneumococcal Vaccine: 50+ Years (2 of 2 - PCV) 2017 02/05/2008 Zoster Vaccines (1 of 2) 2017 Medicare Annual Wellness Visit 09/29/2022 COVID-19 Vaccine ( season) 2024 08/20/2022, 02/27/2022, 09/22/2021, Additional history exists Influenza Vaccine (#1) 2025 , 07/21/2021, 07/22/2020, Additional history exists Social Influencers of Health Screening 12/22/2025 12/22/2024 Hypertension/CHF/CAD Annual BMP Blood Test 02/19/2026 02/19/2025, 07/19/2024, 07/19/2024, Additional history exists Cervical Cancer Screening: HPV 07/13/2026 07/13/2021 Breast Cancer Screening 03/08/2027 03/08/20, 10/29/2023, 09/28/2022, Additional history exists Colorectal Cancer Screening: Colonoscopy 03/24/2028 03/24/2018 Cholesterol Screening (Lipid Panel) 02/19/2030 02/19/2025, 12/09/2023 Hepatitis B Vaccines Completed 10/27/2019, 05/26/2019, 04/22/2019 HIV Screening Completed 08/05/2023 Hepatitis C Screening Completed 08/05/2023 Depression Screening Completed 12/22/2024, 05/11/20 24 HIB Vaccines Aged Out No longer eligi [...] this topic Medical Devices Implanted Type Area Solar Installer Pv Device Identifier Shelf Expiration Date Model / Serial / Lot Ragini Vesuvius 100 5ml Stry-K2m [id number] - [id number] Implanted:Qty: 1 on 07/16/2024 by Nathan Hayward MD N/A: Spine Lumbar LAXMI SPINE 02/17/2027 [id number] / [id number] / Bone Graft Spine Infus Xsm Medt-Sofa [id number] Implanted:Qty: 1 on 07/16/2024 by Nathan Hayward MD N/A: Spine Lumbar [employer] SOFAMOR DANEK 11/20/2025 [id number] / / [id number] [place] Interbody System Implanted:Qty: 1 on 07/16/2024 by Nathan Hayward MD N/A: Spine Lumbar LAXMI - MEDICAL 10/30/2028 [id number] / / [id number] Plate [facility] 2hl 18mm Stry-K2m [id number] Implanted:Qty: 1 on 07/16/2024 by Nathan Hayward MD N/A: Spine Lumbar LAXMI SPINE [id number] / / 5.0x40mm Screw Implanted:Qty: 2 on 07/16/2024 by Nathan Hayward MD N/A: Spine Lumbar LAXMI - MEDICAL [id number] / / Plate Assembly Screw Implanted:Qty: 1 on 07/16/2024 by Nathan Hayward MD N/A: Spine Lumbar LAXMI - MEDICAL [id number] / / Procedures Procedure Name Priority Date/Time Associated Diagnosis Comments CA ARTHROCENTESIS/ASPIRAT ION/INJECTION MAJOR JOINT/BURSA W/O U/S GUIDANCE Routine 05/05/2025 10:00 AM EDT Chronic pain of both shoulders Rotator cuff syndrome of left shoulder XR LUMBAR SPINE BENDING ONLY 2-3 VIEWS Routine 04/30/2025 8:09 AM EDT S/P lumbar fusion MR LUMBAR SPINE WO CONTRAST Routine 04/30/2025 7:50 AM EDT S/P lumbar fusion US ARTHROCENTESIS ASP INJ JOINT MAJOR RIGHT Routine 04/05/2025 3:32 PM EDT Arthritis of right glenohumeral joint CA ARTHROCENTESIS/ASPIRAT ION/INJECTION MAJOR JOINT/BURSA W/O U/S GUIDANCE Routine 04/05/2025 3:00 PM EDT Arthritis of right glenohumeral joint XR KNEE 3 VIEWS LEFT Routine 03/24/2025 9:06 AM EDT Follow-up exam Status post total left knee replacement MG MAMMO DIGITAL SCREENING W JAIME BILAT Routine 03/08/2025 3:09 PM EDT Encounter for screening mammogram for malignant neoplasm of breast COMPREHENSIVE METABOLIC PANEL Routine 02/19/2025 3:19 PM EDT Primary hypertension LIPID PANEL WITH REFLEX TO DIRECT LDL Routine 02/19/2025 3:19 PM EDT Hyperlipidemia, unspecified hyperlipidemia type DEPRESSION SCREENING Routine 05/11/2024 HEPATITIS C SCREENING Routine 08/05/2023 HIV SCREENING Routine 08/05/2023 HM HPV Routine 07/13/2021 HM COLONOSCOPY Routine 03/24/2018 from Last 3 Months or Most Recently Relevant to Health Maintenance Results * CA ARTHROCENTESIS/ASPIRATION/INJECTION MAJOR JOINT/BURSA W/O U/S GUIDANCE (05/05/2025 10:00 AM EDT) Aida Nixon PA - 05/05/2025 10:00 AM EDT JOHN Hamm 05/05/2025 10:38 AM L Inj/Asp: L subacromial bursa Indications: pain Details: 22 G needle, posterior approach Medications: 3 mL BUPivacaine HCl 0.25 %; 3 mL lidocaine 1 %; 40 mg triamcinolone acetonide 40 mg/mL Informed Consent: Laterality: Left Relevant images/test results available and reviewed: no Health status cleared: N/A Procedure/treatment, purpose, treatment alternatives, risks/potential complications and benefits explained: yes Risk/complications/benefits details: Risks and benefits associated with the injection reviewed which can include but not limited to infection, bleeding, bruising, transient synovitis, no improvement in symptoms. Patient questions answered: yes Patient agrees, verbalizes understanding, and wants to proceed: yes Consent given by: Patient Informed consent discussion completed by Physician/TESFAYE with patient: Verbal Pre-procedure timeout performed: yes us Aida OLPEZ IN CLINIC/BEDSIDE ORDERABLES Final Result * XR Lumbar Spine Bending Only 2-3 Views (04/30/2025 8:09 AM EDT) Anatomical Region Laterality Modality Spine, L-spine Radiographic Addie ging 05/02/2025 10:5 5 AM EDT Impressions 05/02/2025 10:58 AM EDT Postoperative findings status post XLIF procedure at L3-L4 and laminectomy and fusion and fixation with instrumentation at L4-L5. No signs of instability through flexion or extension. Report reviewed and signed by : Dr. Balaji Posadas MD on 05/02/2025 10:58 AM. Workstation Name - [id number] -------- FINAL REPORT -------- Dictated By: Balaji Posadas Dictated Date: 05/02/2025 10:55 ET Assigned Physician: Balaij Posadas Reviewed and Electronically Signed By: Balaji Posadas Signed Date: 05/02/2025 10:58 ET Workstation ID: [id number] Transcribed By: Self Edit Transcribed Date: 05/02/2025 10:55 ET Narrative 05/02/2025 10:58 AM EDT EXAM: XR LUMBAR SPINE BENDING ONLY 2-3 VIEWS CLINICAL INDICATION: Instability workup status post lumbar fusion COMPARISON: X-ray 09/15/2024 TECHNIQUE: Lateral views in the neutral position and with flexion and extension were obtained. FINDINGS: There is again evidence of previous lumbar fusion and fixation with instrumentation. Status post XLIF procedure at L3-L4; and laminectomy and fusion with instrumentation at L4-L5. There is normal alignment in the neutral position without signs of instability through flexion or extension. No signs of hardware fracture abnormal lucency to indicate loosening or infection. Signs of underlying spondylosis. Loss of disc space height and endplate osteophyte formation. The sacrum is grossly normal. Procedure Note Balaji Posadas MD - 05/02/2025 EXAM: XR LUMBAR SPINE BENDING ONLY 2-3 VIEWS CLINICAL INDICATION: Instability workup status post lumbar fusion COMPARISON: X-ray 09/15/2024 TECHNIQUE: Lateral views in the neutral position and with flexion andextension were obtained. FINDINGS: There is again evidence of previous lumbar fusion and fixationwith instrumentation. Status post XLIF procedure at L3-L4; andlaminectomy and fusion with instrumentation at L4-L5. There is normalalignment in the neutral position without signs of instability throughflexion or extension. No signs of hardware fracture abnormal lucency toindicate loosening or infection. Signs of underlying spondylosis. [place] disc space height and endplate osteophyte formation. The sacrum isgrossly normal. IMPRESSION: Postoperative findings status post XLIF procedure at L3-L4 and laminectomyand fusion and fixation with instrumentation at L4-L5. No signs of instability through flexion or extension. Report reviewed and signed by : Dr. Balaji Posadas MD on 05/02/2025 10:58AM. Workstation Name - [id number] -------- FINAL REPORT -------- Dictated By: Balaji Posadas Dictated Date: 05/02/2025 10:55 ET Assigned Physician: Balaji Posadas Reviewed and Electronically Signed By: Balaji Posadas Signed Date: 05/02/2025 10:58 ET Workstation ID: [id number] Transcribed By: Self Edit Transcribed Date: 05/02/2025 10:55 ET us Nathan Hayward MD IMG XR PROCEDURES Final Result * MR Lumbar Spine wo Contrast (04/30/2025 7:50 AM EDT) Anatomical Region Laterality Modality L-spine, Spine Magnetic Resonan ce 04/30/2025 9:49 AM EDT Impressions 04/30/2025 10:04 AM EDT Postoperative findings status post left-sided XLIF procedure at L3-L4 and laminectomy and fusion with instrumentation at L4-L5. Worsening degenerative changes at L3-L4, now with moderate to severe central stenosis and moderate foraminal narrowing. Unchanged lumbar disc protrusions at L1-L2 and L2-L3. Multilevel degenerative changes with varying degrees of central stenosis and neuroforaminal narrowing as enumerated above. Transitional lumbosacral segment. Report reviewed and signed by : Dr. Balaji Posadas MD on 04/30/2025 10:04 AM. Workstation Name - [id number] -------- FINAL REPORT -------- Dictated By: Balaji Posadas Dictated Date: 04/30/2025 09:49 ET Assigned Physician: Balaji Posadas Reviewed and Electronically Signed By: Balaji Posadas Signed Date: 04/30/2025 10:04 ET Workstation ID: [id number] Transcribed By: Self Edit Transcribed Date: 04/30/2025 09:49 ET Narrative 04/30/2025 10:04 AM EDT EXAM: MR LUMBAR SPINE WO CONTRAST CLINICAL INDICATION: Status post lumbar fusion, follow-up study COMPARISON: X-ray 09/15/2024, MRI 05/12/2024 TECHNIQUE: Multiplanar noncontrast enhanced MR imaging utilizing standard pulse sequences at 1.5 Ana. FINDINGS: GENERAL OBSERVATIONS: POSTSURGICAL FINDINGS: Since the prior MRI the patient has undergone left-sided extreme lateral lumbar interbody fusion and fixation with instrumentation. At L3-L4 with hardware. Signs of remote prior laminectomy and fusion with instrumentation at L4-L5. Pedicle screw device with interconnecting pamella construct and spinal cages are again noted. No signs of bone marrow edema to indicate pseudoarthrosis. LORDOSIS/KYPHOSIS: Normal ALIGNMENT: Normal SPINAL CANAL: Acquired multilevel spinal stenosis (see below). ANATOMY: Transitional lumbosacral segment partial sacralization of the 5th lumbar vertebra. VERTEBRAL OBSERVATIONS: LUMBAR (L1-S1) VERTEBRAL MARROW: Modic type I discogenic endplate changes are present at L1-L2. POSTERIOR NEURAL ARCH INTEGRITY: Laminectomy defect L4-L5. VERTEBRAL HEIGHT: Normal. No vertebral compression deformity. ENDPLATE DEFINITION: Normal SPINAL CORD/CONUS: The distal cord and conus medullaris are normal with the tip terminating at the T12-L1 level. INTERSPACE OBSERVATIONS: Redemonstration of degenerative changes with desiccation of disc material and disc bulging accompanied by endplate osteophyte formation; as well as changes of facet arthrosis with bony hypertrophy. There are also degenerative changes in lower thoracic region, most pronounced at T10-T11 with secondary mild central stenosis and moderate to severe foraminal narrowing. L1-L2: Unchanged central disc protrusion indents the thecal sac. Underlying disc osteophyte and facet arthrosis result in mild central stenosis and [id number] foraminal narrowing, worse on the left, that is unchanged. L2-L3: Unchanged broad-based extruded right central/subarticular and foraminal disc protrusion with slight caudal migration of disc material in the subarticular zone. Herniated disc indents the thecal sac and displaces the right-sided nerve roots. Underlying disc osteophyte and facet arthrosis with loss of disc space height results in mild central stenosis and mild foraminal narrowing. Overall, no interval change. L3-L4: Postoperative findings status post interval left-sided XLIF procedure. Underlying disc osteophyte complex and facet arthrosis with ligamentum flavum thickening results in moderate to severe central stenosis and moderate foraminal narrowing that has worsened in the interval. L4-L5: Patent central canal and neural foramina status post laminectomy and fusion with instrumentation. L5-S1: Partially sacralized L5. Mild facet arthrosis. No significant central stenosis or foraminal narrowing. Procedure Note Balaji Posadas MD - 04/30/2025 EXAM: MR LUMBAR SPINE WO CONTRAST CLINICAL INDICATION: Status post lumbar fusion, follow-up study COMPARISON: X-ray 09/15/2024, MRI 05/12/2024 TECHNIQUE: Multiplanar noncontrast enhanced MR imaging utilizing standardpulse sequences at 1.5 Ana. FINDINGS: GENERAL OBSERVATIONS: POSTSURGICAL FINDINGS: Since the prior MRI the patient has undergoneleft-sided extreme lateral lumbar interbody fusion and fixation withinstrumentation. At L3- L4 with hardware. Signs of remote priorlaminectomy and fusion with instrumentation at L4-L5. Pedicle screwdevice with interconnecting pamella construct and spinal cages are againnoted. No signs of bone marrow edema to indicate pseudoarthrosis. LORDOSIS/KYPHOSIS: Normal ALIGNMENT: Normal SPINAL CANAL: Acquired multilevel spinal stenosis (see below). ANATOMY: Transitional lumbosacral segment partial sacralization of the 5thlumbar vertebra. VERTEBRAL OBSERVATIONS: LUMBAR (L1-S1) VERTEBRAL MARROW: Modic type I discogenic endplate changes are present atL1-L2. POSTERIOR NEURAL ARCH INTEGRITY: Laminectomy defect L4-L5. VERTEBRAL HEIGHT: Normal. No vertebral compression deformity. ENDPLATE DEFINITION: Normal SPINAL CORD/CONUS: The distal cord and conus medullaris are normal withthe tip terminating at the T12-L1 level. INTERSPACE OBSERVATIONS: Redemonstration of degenerative changes withdesiccation of disc material and disc bulging accompanied by endplateosteophyte formation; as well as changes of facet arthrosis with bonyhypertrophy. There are also degenerative changes in lower thoracicregion, most pronounced at T10-T11 with secondary mild central stenosisand moderate to severe foraminal narrowing. L1-L2: Unchanged central disc protrusion indents the thecal sac.Underlying disc osteophyte and facet arthrosis result in mild centralstenosis and sadw-av-aiqijuyg foraminal narrowing, worse on the left, thatis unchanged. L2-L3: Unchanged broad-based extruded right central/subarticular andforaminal disc protrusion with slight caudal migration of disc material inthe subarticular zone. Herniated disc indents the thecal sac anddisplaces the right-sided nerve roots. Underlying disc osteophyte andfacet arthrosis with loss of disc space height results in mild centralstenosis and mild foraminal narrowing. Overall, no interval change. L3-L4: Postoperative findings status post interval left-sided XLIFprocedure. Underlying disc osteophyte complex and facet arthrosis withligamentum flavum thickening results in moderate to severe centralstenosis and moderate foraminal narrowing that has worsened in theinterval. L4-L5: Patent central canal and neural foramina status post laminectomyand fusion with instrumentation. L5-S1: Partially sacralized L5. Mild facet arthrosis. No significantcentral stenosis or foraminal narrowing. IMPRESSION: Postoperative findings status post left-sided XLIF procedure at L3-L4 andlaminectomy and fusion with instrumentation at L4-L5. Worsening degenerative changes at L3-L4, now with moderate to severecentral stenosis and moderate foraminal narrowing. Unchanged lumbar disc protrusions at L1-L2 and L2-L3. Multilevel degenerative changes with varying degrees of central stenosisand neuroforaminal narrowing as enumerated above. Transitional lumbosacral segment. Report reviewed and signed by : Dr. Balaji Posadas MD on 04/30/2025 10:04AM. Workstation Name - [id number] -------- FINAL REPORT -------- Dictated By: Balaji Posadas Dictated Date: 04/30/2025 09:49 ET Assigned Physician: Balaji Posadas Reviewed and Electronically Signed By: Balaji Posadas Signed Date: 04/30/2025 10:04 ET Workstation ID: [id number] Transcribed By: Self Edit Transcribed Date: 04/30/2025 09:49 ET us Nathan Hayward MD IM MRI PROCEDURES Final Result * US Arthrocentesis Asp Inj Joint Major Right (04/05/2025 3:32 PM EDT) Anatomical Region Laterality Modality Extremity Right Ultrasound Narrative 04/05/2025 4:01 PM EDT PROCEDURE Right Glenohumeral injection for osteoarthritis. Risk including infection, post-injection steriod flare, hypopigmentation, neurovascular injury and fat atrophy, were thoroughly discussed with the patient. The patients understood the risks and gave verbal consent for the procedure. The posteriorlateral shoulder was prepped with Chloro-prep after anatomical landmarks where palpated and visualized with ultrasound. Ethyle chloride was used as to topical anesthetic. Then using a 23-gauge 3-1/2 inch needle lidocaine 2 mL was used as a local anesthetic.Kenalog 40mg and lidocaine 3 cc were injected into the joint using sterile technique under ultrasound guidance without complications. The patient tolerated the procedure well. Aftercare was thoroughly discussed with the patient. Images were recorded and will permanently stored in patients medical record. us Opal Kenney MD IMG US PROCEDURES Final Result * CA ARTHROCENTESIS/ASPIRATION/INJECTION MAJOR JOINT/BURSA W/O U/S GUIDANCE (04/05/2025 3:00 PM EDT) Narrative Opal Kenney MD - 04/05/2025 3:00 PM EDT Opla Kenney MD 04/05/2025 4:01 PM L Inj/Asp: R glenohumeral Indications: pain Details: 22 G needle, posterior approach (guidance: US guided ) Medications: 3 mL lidocaine 1 %; 40 mg triamcinolone acetonide 40 mg/mL Outcome: tolerated well, no immediate complications Informed Consent: Laterality: Right Relevant images/test results available and reviewed: yes Health status cleared: Yes Procedure/treatment, purpose, treatment alternatives, risks/potential complications and benefits explained: yes Risk/complications/benefits details: This include bleeding, infection, increase in pain Patient questions answered: yes Patient agrees, verbalizes understanding, and wants to proceed: yes Consent given by: Patient Informed consent discussion completed by Physician/TESFAYE with patient: Verbal Pre-procedure timeout performed: yes us Opal Kenney MD IN CLINIC/BEDSIDE ORDERABLES F inal Result * XR Knee 3 Views Left (03/24/2025 9:06 AM EDT) Anatomical Region Laterality Modality Lower Extremities, Knee Left Computed Radiography Narrative 03/26/2025 2:43 PM EDT 3 views of the left knee obtained today including AP, lateral, sunrise were reviewed. These show left cemented posterior stabilized total knee replacement with patellar resurfacing. Implants appear well-fixed and well-positioned. No progressive or circumferential radiolucencies. Patella tracking centrally without tilt. us Brian Ferrari MD IMG XR PROCEDURES Fin al Result * MG Mammo Digital Screening w Jaime bilat (03/08/2025 3:09 PM EDT) Anatomical Region Laterality Modality Breast Bilateral Mammography 03/09/2025 7:42 AM EDT Impressions 03/09/2025 7:47 AM EDT No mammographic evidence of malignancy. A negative mammogram in the presence of a clinically suspicious palpable abnormality does not preclude the possibility of malignancy or alter the indications for biopsy. PQRI CPT II 3342F Code 46636, 16520 PQRI 225 CPT II 7025F TISSUE DENSITY: The breasts are almost entirely fatty. (BI-RADS Category A) IMPRESSION: Benign. BI-RADS CATEGORY: 2 - BENIGN RECOMMENDATION: Screening bilateral mammogram is recommended in 1 year. Mammo Location: [facility], [address] [place] [address] -------- FINAL REPORT -------- Dictated By: Oscar Adam Dictated Date: 03/09/2025 07:42 ET Assigned Physician: Oscar Adam Reviewed and Electronically Signed By: Oscar Adam Signed Date: 03/09/2025 07:47 ET Workstation ID: [id number] Transcribed By: Self Edit Transcribed Date: 03/09/2025 07:42 ET Narrative 03/09/2025 7:47 AM EDT CLINICAL: The patient is a 59 years Female presenting for routine screening mammography. The patient has had previous left breast biopsies, most recently in 2020, pathology benign. The patient has a family history of breast cancer involving her mother at age 40. COMPARISON: Most recently 10/29/2023 and most remotely 05/11/2019. TECHNIQUE: Full-field digital mammography of the breasts bilaterally consisting of tomosynthesis in MLO and CC projection is performed in the [employer] 2000-D unit. Computer aided detection utilizing the EcochlorD system was utilized. FINDINGS: The breasts are again seen to be largely fatty replaced. Bilateral benign rim and punctate calcifications are again seen. Tissue markers are again present in the left breast. There is no suspicious cluster of microcalcifications, mass, or area of architectural distortion. There is no skin thickening or nipple retraction. Procedure Note Oscar Adam MD - 03/09/2025 CLINICAL: The patient is a 59 years Female presenting for routinescreening mammography. The patient has had previous left breast biopsies,most recently in 2020, pathology benign. The patient has a family historyof breast cancer involving her mother at age 40. COMPARISON: Most recently 10/29/2023 and most remotely 05/11/2019. TECHNIQUE: Full-field digital mammography of the breasts bilaterallyconsisting of tomosynthesis in MLO and CC projection is performed in theQuosisographe 2000-D unit. Computer aided detection utilizing the [employer]phant[employer] Communicationsystem was utilized. FINDINGS: The breasts are again seen to be largely fatty replaced.Bilateral benign rim and punctate calcifications are again seen. Tissuemarkers are again present in the left breast. There is no suspiciouscluster of microcalcifications, mass, or area of architectural distortion.There is no skin thickening or nipple retraction. IMPRESSION: No mammographic evidence of malignancy. A negative mammogram in the presence of a clinically suspicious palpableabnormality does not preclude the possibility of malignancy or alter theindications for biopsy. PQRI CPT II 3342F Code 99947, 62666 PQRI 225 CPT II 7025F TISSUE DENSITY: The breasts are almost entirely fatty. (BI-RADS CategoryA) IMPRESSION: Benign. BI-RADS CATEGORY: 2 - BENIGN RECOMMENDATION: Screening bilateral mammogram is recommended in 1 year. Mammo Location: [facility], [address] [place] [id number] -------- FINAL REPORT -------- Dictated By: Oscar Adam Dictated Date: 03/09/2025 07:42 ET Assigned Physician: Oscar Adam Reviewed and Electronically Signed By: Oscar Adam Signed Date: 03/09/2025 07:47 ET Workstation ID: [id number] Transcribed By: Self Edit Transcribed Date: 03/09/2025 07:42 ET Jessa Gandhi NP IMG BI PROCEDURES Final Result * (ABNORMAL) Lipid panel with reflex to direct LDL (02/19/2025 3:19 PM EDT) Cholesterol 238(H) 0 - 200 mg/dL LAB CHEMISTRY METHOD 02/19/2025 4:33 PM EDT [facility] Triglycerides 91 0 - 150 mg/dL LAB CHEMISTRY METHOD 02/19/2025 4:33 PM EDT [facility] HDL 54 >=40 mg/dL LAB CHEMISTRY METHOD 02/19/2025 4:33 PM EDT [facility] LDL Calculated 166(H) 0 - 100 mg/dL LAB CHEMISTRY METHOD 02/19/2025 4:33 PM EDT [facility] VLDL Cholesterol Jose Luis 18.2 mg/dL LAB CHEMISTRY METHOD 02/19/2025 4:33 PM EDT [facility] Non HDL Chol. (LDL+VLDL) 184(H) <145 mg/dL LAB CHEMISTRY METHOD 02/19/2025 4:33 PM EDT [facility] Chol/HDL Ratio 4.4 0.0 - 4.4 LAB CHEMISTRY METHOD 02/19/2025 4:33 PM EDT [facility] Blood Venous blood specimen / Unknown Venipuncture / Unknown 02/19/2025 3:19 PM EDT 02/19/2025 3:40 PM EDT Jessa Gandhi NP LAB BLOOD ORDERABLES Final Resul t [facility] [address] [place] [address], * Comprehensive metabolic panel (02/19/2025 3:19 PM EDT) Sodium 139 133 - 145 mmol/L LAB CHEMISTRY METHOD 02/19/2025 4:33 PM EDT [facility] Potassium 4.5 3.5 - 5.5 mmol/L LAB CHEMISTRY METHOD 02/19/2025 4:33 PM EDT [facility] Chloride 106 96 - 110 mmol/L LAB CHEMISTRY METHOD 02/19/2025 4:33 PM EDT [facility] CO2 30 21 - 32 mmol/L LAB CHEMISTRY METHOD 02/19/2025 4:33 PM [facility] Anion Gap 3 3 - 11 LAB CHEMISTRY METHOD 02/19/2025 4:33 PM [facility] Glucose 86 70 - 100 mg/dL LAB CHEMISTRY METHOD 02/19/2025 4:33 PM [facility] BUN 13 5 - 25 mg/dL LAB CHEMISTRY METHOD 02/19/2025 4:33 PM [facility] Creatinine 0.91 0.50 - 1.10 mg/dL LAB CHEMISTRY METHOD 02/19/2025 4:33 PM [facility] eGFR 74 >=60 mL/min/1. 73m2 LAB CHEMISTRY METHOD 02/19/2025 4:33 PM [facility] Comment:Calculation based on the Chronic Kidney Disease Epidemiology Collaboration (CKD-EPI) equation refit without adjustment for race. BUN/Creatinine Ratio 14.3 LAB CHEMISTRY METHOD 02/19/2025 4:33 PM [facility] Calcium 9.4 8.5 - 10.5 mg/dL LAB CHEMISTRY METHOD 02/19/2025 4:33 PM [facility] AST (SGOT) 27 10 - 42 unit/L LAB CHEMISTRY METHOD 02/19/2025 4:33 PM [facility] ALT (SGPT) 49 10 - 60 unit/L LAB CHEMISTRY METHOD 02/19/2025 4:33 PM [facility] Alkaline Phosphatase 79 42 - 121 unit/L LAB CHEMISTRY METHOD 02/19/2025 4:33 PM [facility] Total Protein 7.7 6.0 - 8.0 g/dL LAB CHEMISTRY METHOD 02/19/2025 4:33 PM [facility] Albumin 4.1 3.2 - 5.0 g/dL LAB CHEMISTRY METHOD 02/19/2025 4:33 PM [facility] Total Bilirubin 0.8 0.0 - 1.4 mg/dL LAB CHEMISTRY METHOD 02/19/2025 4:33 PM EDT [facility] Blood Venous blood specimen / Unknown Venipuncture / Unknown 02/19/2025 3:19 PM EDT 02/19/2025 3:40 PM EDT Jessa Gandhi NP LAB BLOOD ORDERABLES Final Resul t [facility] [address] [place] [address], [place] [phone] * Depression Screening (05/11/2024) [facility] Depression Screening Abstracted [facility] Provider HEALTH MAINTENANCE Final Result * HIV Screening (08/05/2023) [facility] HIV Screening Abstracted [facility] Provider HEALTH MAINTENANCE Final Result * Hepatitis C Screening (08/05/2023) [facility] Hepatitis C Screening Abstracted [facility] Provider HEALTH MAINTENANCE Final Result * Cervical Cancer Screening: HPV (07/13/2021) [facility] Cervical Cancer Screening: HPV Negative, abstracted Result [facility] Provider HEALTH MAINTENANCE Final Result * Colonoscopy (03/24/2018) [facility] Colonoscopy No interpretation , abstracted Comment:External Completion of test per patient (Patient reports normal results) Anatomical Region Laterality Modality Other Historical Provider HEALTH MAINTENANCE Final Result from Last 3 Months or Most Recently Relevant to Health Maintenance Insurance [place] [facility] MEDICARE Member Subscriber Plan / Payer (Ef fective 2022-Present) Name:JOSH SUNG Relation to Subscriber:Self Name:Josh Sung Payer ID:[id number] Group ID:[id number] Type:Not on file Address: [address] [place] [phone] Advance Directives Documents on File Type Date Recorded Patient User Experience Architect Expl anation Health Care Decision (hx) 03/05/2024 AD LAM DIRECTIVE Health Care Decision (hx) 03/05/2024 AD LAM DIRECTIVE Health Care Decision (hx) 03/05/2024 AD LAM DIRECTIVE Health Care Decision (hx) 03/05/2024 AD LAM DIRECTIVE Health Care Decision (hx) 02/13/2024 HE ALTH CARE PROXY Care Teams Office Admin Relationship Specialty Start Date End Date Mily Lawrence MD [address] [place] [phone] PCP - General Internal Medicine 09/24/16
--- OUTSIDE RECORDS SUMMARY | 2025-06-01 10:50 | XMS_ITS | Clinical Summary ---
Author Organization [facility] Address [address] [place] [address] Care Team Providers Care Health Promotion Specialist Name Role Phone Mily Lawrence MD Primary Care Provider [phone] Allergies Active Allergy Reactions Criticality Noted Date [...] this topic Medical Devices Implanted Type Area Paper Sorter And Counter Device Identifier Shelf Expiration Date Model / Serial / Lot Putty Vesuvius 100 5ml Stry-K2m [id number] - [id number] Implanted:Qty: 1 on 07/16/2024 by Nathan Hayward MD at [facility] and Med Lateral: Spine Lumbar LAXMI SPINE 02/17/2027 [id number] / [id number] / Bone Graft Spine Infus Xsm Medt-Sofa [id number] - [id number] Implanted:Qty: 1 on 07/16/2024 by Nathan Hayward MD at [facility] and Med Lateral: Spine Lumbar [employer] SOFAMOR DANEK 11/20/2025 [id number] / / [id number] Bard Interbody System Implanted:Qty: 1 on 07/16/2024 by Nathan Hayward MD at [facility] and Med Lateral: Spine Lumbar LAXMI - MEDICAL 10/30/2028 [id number] / / [id number] Plate [facility] 2hl 18mm Stry-K2m [id number] - [id number] Implanted:Qty: 1 on 07/16/2024 by Nathan Hayward MD at [facility] and Med Lateral: Spine Lumbar LAXMI SPINE [id number] / / 5.0x40mm Screw Implanted:Qty: 2 on 07/16/2024 by Nathan Hayward MD at [facility] and Med Lateral: Spine Lumbar LAXMI - MEDICAL [id number] / / Plate Assembly Screw Implanted:Qty: 1 on 07/16/2024 by Nathan Hayward MD at [facility] and Med Lateral: Spine Lumbar LAXMI - MEDICAL [id number] / / Advance Directives For more information, please contact: [phone] Latest Code Status on File Code Status [...] way: discussion with patient . Care Teams Health Promotion Specialist Relationship Specialty Start Date End Date Mily Lawrence MD [address] [place] [address] [address] [place] [phone] PCP - General Internal Medicine 06/12/17
== END 2025-06-01 10:46 | disposition home or self-care (01) ==
LOC: HO.HSMS 09:58
PROVIDERS: PCP Internal Medicine; Visit Provider Psychiatry & Neurology Neurology
DX: G51.32 Clonic hemifacial spasm, left (principal)
CPT/HCPCS: 64612

== ENCOUNTER → 2025-06-01 09:57 | Outpatient (BNVA) | payer OTHER, SELFPAY | PROVIDERS: PCP Internal Medicine; Visit Provider Psychiatry & Neurology Neurology | DX: G51.32 Clonic hemifacial spasm, left (principal) | CPT/HCPCS: 64612; 99211; J0585 ==

== ENCOUNTER 2025-08-17 14:16 | Outpatient (AMB) | payer OTHER, SELFPAY ==
--- NOTE | 2025-08-17 14:16 | MHC.OFFVIS ---
Vital Signs 08/17/25 14:17 Height 5 ft 4 in Weight 179 lb BMI 30.7 BP 154/100 H Blood Pressure Location Lt brachial Position Sitting Pulse 68 Pulse Source Pulse Oximeter Pulse Oximetry (%) 95 Oxygen Delivery Method Room Air Intake Visit Reasons: burning sensation on cervical spine Intake Note: Burning sensation on cervical spine Unionmelt Operator Required: No Accompanied by: Self / Same As Patient Allergies Sulfa (Sulfonamide Antibiotics) Allergy (Mild, Verified 08/17/25 14:17) Hives adhesive tape Adverse Reaction (Mild, Verified 08/17/25 14:17) Rash HPI Comments Details: 59-yr-old female presents for urgent f/u visit . In 2007 she had C spine surgery -.C6-7 fusion . Her neck is worse and her MRI C spine in 2023 showed - Severe cervical and upper thoracic spondylosis and reversal of the normal cervical lordosis. Status post previous anterior cervical discectomy and fusion at the C6-C7 level. No significant central canal stenosis. Multilevel foraminal narrowing due to osseous spurring and disc-osteophyte complexes. No cord signal abnormality. She feels her neck pain is worse which progressed to headaches . Patient reports she has had an intentional weight loss, trying to eat better. She continues to have neck pain and BUE numbness and tingling, especially at night regardless of her sleep position. . She is still seeing Dr Nathan Hayward, who performed her l-spine repair last year. Plans to have another CT L spine due to residual symptoms. her sleep- states that her orthopedic office has ordered this but there are insurance or fender issues. February 2024 BUE EMG/NCS was normal. 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 She is still not sleeping well. Has inconsistent sleep schedule, tries to go to bed around 22:00 sometimes, but then can not sleep until the sunrise is, and then will sleep during the day. Using melatonin 3-6mg, celebrex, trazodone, and gabapentin qhs- but feels that she cannot relax enough to fall asleep. She has been fitted for a mandibular device through [facility]- so has not been using her CPAP as much. [facility] Medical History Cervical spondylosis with radiculopathy Radiculopathy Cervical radiculopathy at C7 Hirsutism Vitamin D deficiency Insomnia Depression with anxiety GERD (gastroesophageal reflux disease) HLD (hyperlipidemia) Obstructive sleep apnea Urinary incontinence Post-thrombotic syndrome Congestive heart failure (CHF) Degenerative disc disease, cervical Osteoarthritis Lumbosacral radiculitis Cervical post-laminectomy syndrome Brachial radiculitis Surgical History Hx of knee surgery H/O breast biopsy History of lumbar spinal fusion S/P laparoscopic surgery Hx of tubal ligation History of total knee replacement (TKR) Hx of neck surgery Hx of hand surgery Hx of colonoscopy Family History Mother Breast CA DM (diabetes mellitus) HTN (hypertension) Arthritis ESRD (end stage renal disease) Father Arthritis ESRD (end stage renal disease) Maternal Aunt Breast CA Social History Household Members: None Alcohol intake: current Alcohol intake frequency: a few times a week Patient Tobacco Use Status: Never used Tobacco Substance Use Type: Marijuana Physical Exam Vital Signs: Last Vital Signs Pulse 68 08/17/25 14:17 BP 154/100 H 08/17/25 14:17 Pulse Ox 95 08/17/25 14:17 Oxygen Delivery Method Room Air 08/17/25 14:17 BMI result Body Mass Index 30.7 Const Other: left hemifacial spasm General: cooperative and no acute distress Orientation/consciousness: patient oriented x3 Eyes Pupils: Equal, round and reactive pupils present Resp Effort & Inspection: normal respiratory effort and able to speak in complete sentences Neuro Other: Left hemifascial spasm/droop General: patient oriented x3 Cranial nerves: Yes Facial sensation intact/muscles of mastication intact, Yes Equal, round and reactive pupils present, Yes Nystagmus not present and Yes Midline tongue present Cognition (Neuro): normal cognition Gait exam (Neuro): Antalgic gait present Motor exam (neuro): 5/5 motor strength present throughout Deep tendon reflexes (DTR's): Right triceps reflex intensity grade: 1+, Left triceps reflex intensity grade: 1+, Rt Biceps (C5, C6): 1+, Left biceps reflex intensity grade: 1+, Right brachioradialis reflex intensity grade: 1+, Left brachioradialis reflex intensity grade: 1+, Right patellar reflex intensity grade: 1+ and Left patellar reflex intensity grade: 1+ Coordination: [id number] test normal Psych Appearance: grossly normal Mental Status: mental status grossly normal Speech and movement: Normal speech and movement present Affect: normal affect Attitude: cooperative Assessment & Plan Assessment & Plan (1) Paresthesia and pain of both upper extremities: Code(s): R20.2 - Paresthesia of skin; M79.601 - Pain in right arm; M79.602 - Pain in left arm Category: Medical (2) Cervical spondylosis with radiculopathy: Code(s): M47.22 - Other spondylosis with radiculopathy, cervical region Category: Medical Plan Discussed MRI c spine findings There is no evidence of myelopathy on exam today I will refer he rto pain management for further eval and tretament of neck pain. Orders: Referrals Pain Management Referral M47.22 - Other spondylosis with radiculopathy, cervical region, M54.2 - Cervicalgia Coding Level of Care Code Est Pt Level 4 (94294) Diagnoses Paresthesia and pain of both upper extremities R20.2; M79.601; M79.602 Cervical spondylosis with radiculopathy M47.22
[2025-08-17 14:17] VITALS: BP 154/100; PULSE 68; O2SAT 95; BMI 30.7
--- OUTSIDE RECORDS SUMMARY | 2025-08-17 18:37 | XMS_ITS | Encounter Summary ---
Author Organization [facility] Address [address] [place] [address] Care Team Providers Care Furnace Puncher Name Role Phone Mily Lawrence MD Primary Care Provider [phone] Encounter Details Date Type Department Care Team (Late st Contact Info) Description 08/04/2025 Results Follow-Up Internal Medicine - [place] [address] [facility] [address] [place] [address] Jessa Gandhi NP 175 [facility] [address] [place] [address] Social History Tobacco Use Types Packs/Day Years Used Date Smoking Tobacco: Never Smokeless Tobacco: Never Alcohol Use Standard Drinks/Week Comments Yes 6 (1 standard drink = 0.6 oz pur e alcohol) Housing Instability Answer Date Recorde d Are you worried that in the next 2 months you may not have stable housing? No 06/06/2025 Food Access & Nutrition Answer Date Rec orded Do you have access to a vari ety of food including fruits and vegetables? No 06/06/2025 Access to Healthcare Answer Date Record ed Within the last 3 months, lawrence w many times did you visit the emergency department for your medical care? 0 06/06/2025 Health Literacy Answer Date Recorded How often do you need to hav e someone help you when you read instructions, pamphlets, or other written material from your doctor or pharmacy? Never 06/06/2025 Caregiver: How often do you need to have someone help you when you read instructions, pamphlets, or other written material from your doctor or pharmacy? Not on file 06/06/2025 Financial Risk Answer Date Recorded How hard is it for you to pa y for the very basics like food, housing, medical care, and air conditioning / heating? Somewhat hard 06/06/2025 Transportation Answer Date Recorded Has the lack of transportati on kept you from meetings, work, or from getting things needed for daily living? No Has the lack of transportati on kept you from medical appointments or from getting medications? No 06/06/2025 Social Isolation Answer Date Recorded How often do you feel lonely or isolated from those around you? Sometimes 06/06/2025 Food Risk Answer Date Recorded Within the past 12 months we worried whether our food would run out before we got money to buy more. Sometimes true 025 Within the past 12 months th e food we bought just didn't last and we didn't have money to get more. Often true 06/06/2025 Dependent Care Answer Date Recorded Do you need help finding or paying for care for your loved ones. For example, early childhood aide classroom or elderly care for an older adult? No 06/06/2025 Education Answer Date Recorded Do you think completing more education or training, like finishing a GED, going to college, or learning a trade, would be helpful for you? Yes 06/06/2025 Employment and Income Answer Date Recor ded During the last four weeks, have you been actively looking for work? No 06/06/2025 Living Situation Answer Date Recorded What is your living situation? Unrecognized valu e 06/06/2025 Comments No Sex and Gender Information Value Date Recorded Sex Assigned at Female 08/24/2024 4:29 PM EST Legal Sex Female 11:54 AM EST Gender Identity Female 08/24/2024 4:29 PM EST Sexual Orientation Straight 08/24/2024 4: 43 PM EST documented as of this encounter Plan of Treatment Upcoming Encounters Date Type Department Care Team (Late st Contact Info) Description 08/20/2025 4:45 PM EDT Appointment [facility] CT Scan [address] [place] [address] 08/31/2025 2:15 PM EST Office Visit Orthopedic Surgery - [place] [address] [facility] [address] [place] [address] Marci Bernardo PA [address] [place] [id number] 12/14/2025 2:30 PM EST Office Visit Internal Medicine - [place] [address] [facility] [address] [place] [phone] Mily Lawrence MD [address] [place] [address] documented as of this encounter Visit Diagnoses Not on filedocumented in this encounter Additional Health Concerns Assessment Noted Time PHQ-9 Depression Total Score: 0 06/07/20 25 3:34 PM EDT documented as of this encounter Care Teams Furnace Puncher Relationship Specialty Start Date End Date Mily Lawrence MD 175 [facility] [address] [place] [phone] PCP - General Internal Medicine 09/24/16 documented as of this encounter
--- OUTSIDE RECORDS SUMMARY | 2025-08-17 18:37 | XMS_ITS | Clinical Summary ---
Author Organization [facility] Address [address] [place] [address] Care Team Providers Care Financial Services Education Consultant Name Role Phone Mily Lawrence MD Primary Care Provider [phone] Allergies Active Allergy Reactions Criticality Noted Date [...] this topic Medical Devices Implanted Type Area Message And Delivery Service Pricer Device Identifier Shelf Expiration Date Model / Serial / Lot Putty Vesuvius 100 5ml Stry-K2m [id number] - [id number] Implanted:Qty: 1 on 07/16/2024 by Nathan Hayward MD at [facility] [place] and Med Lateral: Spine Lumbar LAXMI SPINE 02/17/2027 [id number] / [id number] / Bone Graft Spine Infus Xsm Medt-Sofa [id number] - [id number] Implanted:Qty: 1 on 07/16/2024 by Nathan Hayward MD at [facility] [place] and Med Lateral: Spine Lumbar [employer] SOFAMOR DANEK 11/20/2025 [id number] / / [id number] [place] Interbody System Implanted:Qty: 1 on 07/16/2024 by Nathan Hayward MD at [facility] [place] and Med Lateral: Spine Lumbar LAXMI - MEDICAL 10/30/2028 [id number] / / [id number] Plate [facility] 2hl 18mm Stry-K2m [id number] - [id number] Implanted:Qty: 1 on 07/16/2024 by Nathan Hayward MD at [facility] [place] and Med Lateral: Spine Lumbar LAXMI SPINE [id number] / / 5.0x40mm Screw Implanted:Qty: 2 on 07/16/2024 by Nathan Hayward MD at [facility] [place] and Med Lateral: Spine Lumbar LAXMI - MEDICAL [id number] / / Plate Assembly Screw Implanted:Qty: 1 on 07/16/2024 by Nathan Hayward MD at [facility] [place] and Med Lateral: Spine Lumbar LAXMI - MEDICAL [id number] / / Advance Directives For more information, please contact: [phone] Latest Code Status on File Code Status [...] way: discussion with patient . Care Teams Financial Services Education Consultant Relationship Specialty Start Date End Date Mily Lawrence MD [address] [place] [address] [address] [place] [address] PCP - General Internal Medicine 06/12/17
--- OUTSIDE RECORDS SUMMARY | 2025-08-17 18:37 | XMS_ITS | Data Portability ---
Author Organization [facility], PAIN OFFICE Address [address] 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 Hayward in [place], [place] I recommend physical therapy with Anderson Murcia at the in [place], [place]. She will follow up in six [...] booked for the same. 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 Insurance approval needed. I have encouraged tostart physical therapy and discussed the importance of core strengthening. She si on [place] and will call back after consulting with [...] surgeon referral 2022 023 HAYDEN Hayward MD, [address] [place] [address] , [place], [address], 05:00:52 Procedures None recorded. Surgeries None recorded. Imaging None recorded. Medication Orders None recorded. Patient TargetsNo targets recorded. Patient Instructions Encounter Date Encounter Id Patient Instructions Last Modified By Organization Details Last Modified Time 01/24/2023 [id number] She was advised against bed rest lasting longer than four days and to continue activities as tolerated. [email or web address] Not available 01/30/2023 16:21:29 04/01/2023 [id number] physical therapy* HAYDEN Not available 10/13/2023 05:00:58 She was advised against bed rest lasting longer than four days and to continue activities as tolerated. [email or web address] Not available 04/05/2023 11:18:39 12/02/2023 [id number] She was advised against bed rest lasting longer than four days and to continue activities as tolerated. [email or web address] Not available 12/02/2023 14:52:52 03/27/2024 [id number] She was advised against bed rest lasting longer than four days and to continue activities as tolerated. [email or web address] Not available 03/31/2024 16:03:33 Reason for Referral Neurological Surgeon Referra l for Brachial radiculitis Referring Physician: Evelio Smith, Pain Management, Encounter Date: 04/01/2023 Results Created Date Observation Date Name Description Value Unit Range Abnormal Flag Note LastModifiedBy Organization Detail LastModifiedTime 12/26/19 23 12/25/2022 XR, cervi ney spine No observ ation record ed. [facility] [address] [place] [address], [address], 01/24/2023 13:46:21 02/09/20 23 02/06/2023 MRI, cervi ney spine , w/o contr ast No observ ation record ed. [facility] [address] [place] [address], [address], 02/11/2023 15:20:32 Result Notes None recorded. Problems Name Problem SNOMED Code Status Onset Date Resolution Date Notes Provider Name and Address Organization Details Recorded Time Brachial radiculitis 69952163 Active Evelio grady MD [address] [facility] , [address], [place], [address], [place] [facility] 6 08:51:25 Displacement of lumbar intervertebral disc without myelopathy 61128658 Active Evelio grady MD [email or web address] , [address], [place], [address], [place] [facility] 6 08:55:36 Lumbosacral radiculitis [id number] Lauryn grady MD [email or web address] , [address], [place], [address], [place] [facility] 6 08:55:36 Degeneration of cervical intervertebral disc [id number] Lauyrn grady MD [email or web address] , [address], [place], [address], [place] [facility] 6 08:51:25 Cervical post-laminecto my syndrome 788066506 Active Evelio grady MD [address] [facility] , [address], [facility] [place], [address], [place] [facility] 6 08:51:25 Occipital headache 574624 Active Evelio grady MD [address] [facility] , [address], [facility], [address], [place] [facility] 6 08:51:25 Problem Notes None recorded. Procedures Surgical History Date Name Laterality Status Provider Name and Address Organization Details Recorded Time 01/09/20 24 Lumbar Epidural steroid injection under fluoroscopic guidance completed Evelio Smith MD [address] [facility] , [address], [place], [address], [place] [facility] 01/09/2024 11:18:14 12/26/19 23 Lumbar Epidural steroid injection under fluoroscopic guidance completed Evelio Smith MD [address] [facility] , [address], [place], [address], [place] [facility] 12/25/2022 13:26:44 07/08/20 19 Greater Occipital Nerve Block(s) completed Evelio Smith MD [address] [facility] , [address], [place], [address], [place] [facility] 07/09/2019 14:01:34 01/07/20 19 Cervical Epidural Steroid injection under fluroscopic guidance completed Evelio Smith MD [address] [facility] , [address], [place], [address], [place] [facility] 01/07/2019 10:50:11 04/24/20 17 Lumbar Epidural steroid injection under fluoroscopic guidance completed Evelio Smith MD [address] [facility] , [address], [place], [address], [place] [facility] 05/02/2017 10:32:28 10/21/19 17 Lumbar Fusion completed Elsa Lainez [place] [facility] 12/18/2018 13:40:37 10/02/20 16 Lumbar Epidural steroid injection under fluoroscopic guidance completed Evelio Smith MD [address] , [address], [place], [address], [place] [facility] 10/02/2016 14:32:08 04/04/20 16 Lumbar Epidural steroid injection under fluoroscopic guidance completed Evelio Smith MD [address] , [address], [place], [address], [place] [facility] 04/04/2016 11:07:10 [...] Name and Address Organization Details Recorded Time 69769 Substance with sulfonami de structure and antibacte rial mechanism of action (substanc e) medicatio n hives Not available Not available 02/27/2016 87498 8003 SNOMED Elsa paris [facility] 6 14:58:47 Medications [...] Available Not Available Not Available Flucelvax Quad 1610-2582 (PF) 60 mcg (15 mcg x 4)/0.5 mL IM syringe 03/07 completed Not Available Not Available Not Available Ubrelvy 100 mg tablet PLEASE SEE ATTACHED FOR DETAILED DIRECTION S active Not Available Not Available No t Available Daily-Michelle (with folic acid) 400 mcg tablet active Not Available Not Available N ot Available Vitals Date Recorded Body height Pain severity - 0-10 verbal numeric rating [Score] - Reported Heart rate Oxygen saturation Oxygen saturation in Arterial blood by Pulse oximetry Body mass index (BMI) Body weight Systolic And Diastolic Provider Name and Address Organization Details Last Updated DateTime 4 162.56 cm 8 75 /min 96 % 96 % 34.3 kg/m2 11940.4 7 g 150/90 mm[Hg] Deana robb [facility] 4 14:28:07 Date Recorded Body height Heart rate Oxygen saturation Oxygen saturation in Arterial blood by Pulse oximetry Pain severity - 0-10 verbal numeric rating [Score] - Reported Systolic And Diastolic Provider Name and Address Organization Details Last Updated DateTime 4 162.56 cm 102 /min 98 % 98 % 10 138/95 mm[Hg] Irish Shields [facility] Pain Management 4 10:08:26 Date Recorded Heart rate Oxygen saturation Oxygen saturation in Arterial blood by Pulse oximetry Systolic And Diastolic Provider Name and Address Organization Details Last Updated DateTime 01/24/2023 88 /min 98 % 98 % 107/77 mm[Hg] Corina Saldivar [facility] Pain Management 3 13:18:03 Date Recorded Body height Heart rate Oxygen saturation Oxygen saturation in Arterial blood by Pulse oximetry Body mass index (BMI) Body weight Pain severity - 0-10 verbal numeric rating [Score] - Reported Systolic And Diastolic Provider Name and Address Organization Details Last Updated DateTime 4 162.56 cm 101 /min 97 % 97 % 34.3 kg/m2 59631.4 7 g 10 144/91 mm[Hg] Evelio grady MD [email or web address] , [address], [place], [address], [facility] Pain Management 4 10:28:41 Date Recorded Body height Heart rate Oxygen saturation Oxygen saturation in Arterial blood by Pulse oximetry Pain severity - 0-10 verbal numeric rating [Score] - Reported Body mass index (BMI) Body weight Systolic And Diastolic Provider Name and Address Organization Details Last Updated DateTime 3 162.56 cm 89 /min 98 % 98 % 8 35.2 kg/m2 78115.4 4 g 165/77 mm[Hg] Mary Dicksonue [facility] Pain Management 3 13:23:02 Social History Question Answer Notes LastModified by [employer] Details LastModified Time Tobacco Smoking Status Never Smoker Not Available [facility] 08/05/2020 03:16:12 Which Illicit Or Recreational Drugs Have You Used? No [id number] Information not available 08/05/2020 Education 2 [employer] Information not available 02/27/2016 Live Alone Or With Others? [email or web address] Information not available 02/27/2016 Marital Status [employer] not available 02/27/2016 What Was The Date Of Your Most Recent Tobacco Screening? 01/31/2019 [id number] Information not available 08/05/2020 Sex: Unknown Functional Status Question Answer Note LastModified by [employer] Details LastModified Time What is your level of alcohol consumption? Moderate [id number] Information not available 08/05/2020 Are you currently [...] Diagnosis SNOMED-CT Code Diagnosis ICD10 Code Diagnosis IMO Codes Diagnosis Note [id number] Evelio Smith MD PAIN OFFICE [address] [place] [address] 02/27/2016 14:19:46 02/28/2016 08:47:29 Displacement of lumbar intervertebral disc without myelopathy 12950389 M51.26 Lumbosacra l radiculitis 18176687 M54.17 Brachial radiculitis 278 [address]59 M54.12 Cervical post-laminectomy syndrome 970607626 M96.1 Degenerati on of cervical intervertebral disc 19947415 M50.30 Occipital headache 99435 7 R51 13510 Evelio Smith MD [facility] PAIN OFFICE [address] [place] [address] 03/20/2016 08:42:32 03/20/2016 10:30:41 Displacement of lumbar intervertebral disc without myelopathy 77100896 M51.26 Lumbosacra l radiculitis 07610387 M54.17 68553 Evelio Smith MD PAIN OFFICE [address] [place] [address] 04/04/2016 10:15:22 04/04/2016 11:15:33 Displacement of lumbar intervertebral disc without myelopathy 92904278 M51.26 Lumbosacra l radiculitis 64483867 M54.17 28102 Evelio Smith MD [facility] PAIN OFFICE [address] [place] [address] 05/10/2016 11:47:50 05/15/2016 08:55:57 Displacement of lumbar intervertebral disc without myelopathy 60307080 M51.26 Lumbosacra l radiculitis 41405556 M54.17 39244 Evelio Smith MD PAIN OFFICE [address] [place] [address] 09/03/2016 10:14:59 09/20/2016 08:51:29 Lumbosacral radiculitis 31858490 M54.17 Displaceme nt of lumbar intervertebral disc without myelopathy 53062867 M51.26 75745 Evelio Smith MD PAIN OFFICE [address] [place] [address] 10/02/2016 13:29:26 10/03/2016 14:29:14 Displacement of lumbar intervertebral disc without myelopathy 43354416 M51.26 Lumbosacra l radiculitis 30699917 M54.17 09806 Evelio Smith MD PAIN OFFICE [address] [place] [address] 03/27/2017 13:22:06 03/28/2017 16:32:03 Cervical radiculopathy 12880732 M54.12 Degenerati on of cervical intervertebral disc 91446769 M50.30 Muscle pain 77723620 M79 .1 Displaceme nt of lumbar intervertebral disc without myelopathy 32789088 M51.26 Lumbosacra l radiculitis 47177098 M54.17 52152 Evelio Smith MD PAIN OFFICE [address] [place] [address] 04/24/2017 13:30:47 05/02/2017 13:43:27 Cervical post-laminectomy syndrome 057314096 M96.1 Cervical radiculopathy 54134725 M54.12 Displaceme nt of lumbar intervertebral disc without myelopathy 31960740 M51.26 Lumbosacra l radiculitis 22407971 M54.17 21202 Evelio Smith MD PAIN OFFICE [address] [place] [address] 05/16/2017 11:40:03 05/17/2017 11:19:26 Brachial radiculitis 49618925 M54.12 Degenerati on of cervical intervertebral disc 99916354 M50.30 Cervical post-laminectomy syndrome 298652239 M96.1 Occipital headache 24221 7 R51 43988 Evelio Smith MD PAIN OFFICE [address] [place] [address] 12/18/2018 13:31:38 12/18/2018 16:14:01 Brachial radiculitis 32893012 M54.12 Degenerati on of cervical intervertebral disc 30412665 M50.30 Cervical post-laminectomy syndrome 115487474 M96.1 Occipital headache 79697 7 R51 24638 Evelio Smith MD PAIN OFFICE [address] [place] [address] 01/06/2019 08:42:42 01/07/2019 10:53:06 Brachial radiculitis 87276993 M54.12 Degenerati on of cervical intervertebral disc 89231042 M50.30 Cervical post-laminectomy syndrome 735795325 M96.1 Occipital headache 19548 7 R51 48807 Evelio Smith MD PAIN OFFICE [address] [facility] [address] 01/28/2019 14:04:46 01/31/2019 10:24:31 Brachial radiculitis 33553666 M54.12 Degenerati on of cervical intervertebral disc 63468210 M50.30 Cervical post-laminectomy syndrome 578934992 M96.1 Occipital headache 13335 7 R51 10338 Evelio Smith MD PAIN OFFICE [address] [facility] [place] [address] 06/09/2019 14:32:10 06/26/2019 15:58:13 Occipital headache 883128 R51 Degenerati on of cervical intervertebral disc 28658504 M50.30 Cervical post-laminectomy syndrome 051260901 M96.1 Brachial radiculitis 278 73376 M54.12 08361 Evelio Smith MD PAIN OFFICE [address] [facility] [address] 07/08/2019 15:29:45 07/09/2019 14:03:49 Occipital headache 005941 R51 Cervical post-laminectomy syndrome 052430394 M96.1 Degenerati on of cervical intervertebral disc 61810408 M50.30 Brachial radiculitis 278 18452 M54.12 20151 Evelio Smith MD [facility] PAIN OFFICE [address] [facility] [address] 08/24/2019 13:24:13 08/25/2019 11:25:36 Occipital headache 393657 R51 Degenerati on of cervical intervertebral disc 85324600 M50.30 Cervical post-laminectomy syndrome 393588019 M96.1 Brachial radiculitis 278 13423 M54.12 77504 Evelio Smith MD [facility] PAIN OFFICE [address] [place] [address] 03/07/2020 13:03:14 03/07/2020 14:34:46 Occipital headache 369407 R51 Degenerati on of cervical intervertebral disc 17847121 M50.30 Cervical post-laminectomy syndrome 155116329 M96.1 Brachial radiculitis 278 34198 M54.12 48164 Evelio Smith MD [facility] PAIN OFFICE [address] [place] [address] 11/23/2021 13:01:22 11/23/2021 13:27:11 Displacement of lumbar intervertebral disc without myelopathy 28535212 M51.26 Lumbosacra l radiculitis 03369926 M54.17 Brachial radiculitis 278 24773 M54.12 Cervical post-laminectomy syndrome 721718228 M96.1 Degenerati on of cervical intervertebral disc 71671379 M50.30 Occipital headache 64937 7 R51.9 16819 Evelio Smith MD PAIN OFFICE [address] [place] [address] 09/12/2022 08:14:50 09/12/2022 15:42:09 Displacement of lumbar intervertebral disc without myelopathy 55120168 M51.26 Lumbosacra l radiculitis 55724267 M54.17 Brachial radiculitis 278 [address]72 M54.12 Cervical post-laminectomy syndrome 301921273 M96.1 Degenerati on of cervical intervertebral disc 54432410 M50.30 Occipital headache 08837 7 R51.9 89053 Evelio Smith MD [facility] PAIN OFFICE [address] [place] [address] 12/06/2022 14:08:50 12/13/2022 14:02:45 Displacement of lumbar intervertebral disc without myelopathy 35886272 M51.26 Lumbosacra l radiculitis 84113587 M54.17 Brachial radiculitis 278 52412 M54.12 Cervical post-laminectomy syndrome 955440652 M96.1 Degenerati on of cervical intervertebral disc 26532646 M50.30 Occipital headache 94951 7 R51.9 15650 Evelio Smith MD [facility] PAIN OFFICE [address] [place] [address] 12/25/2022 11:32:27 12/25/2022 13:59:32 Displacement of lumbar intervertebral disc without myelopathy 16709141 M51.26 Lumbosacra l radiculitis 64315597 M54.17 Brachial radiculitis 278 38953 M54.12 Cervical post-laminectomy syndrome 899376798 M96.1 Degenerati on of cervical intervertebral disc 09483914 M50.30 Occipital headache 61471 7 R51.9 78100 Evelio Smith MD [facility] PAIN OFFICE [address] [facility] [place] [address] 01/24/2023 13:09:55 01/31/2023 14:49:17 Brachial radiculitis 42233995 M54.12 Degenerati on of cervical intervertebral disc 46019797 M50.30 Cervical post-laminectomy syndrome 085603204 M96.1 Occipital headache 09163 7 R51.9 89320 Evelio Smith MD [facility] PAIN OFFICE [address] [place] [address] 04/01/2023 13:14:13 04/05/2023 12:19:21 Lumbosacral radiculitis 63336594 M54.17 Brachial radiculitis 278 87133 M54.12 Degenerati on of cervical intervertebral disc 04756715 M50.30 Cervical post-laminectomy syndrome 274177221 M96.1 Occipital headache 58762 7 R51.9 00468 Evelio Smith MD [facility] PAIN OFFICE [address] [place] [address] 12/02/2023 14:06:57 12/02/2023 14:57:45 Lumbosacral radiculitis 21621370 M54.17 Displaceme nt of lumbar intervertebral disc without myelopathy 80501198 M51.26 Brachial radiculitis 278 79023 M54.12 Cervical post-laminectomy syndrome 463762214 M96.1 Degenerati on of cervical intervertebral disc 66951546 M50.30 Occipital headache 70310 7 R51.9 19640 Evelio Smith MD [facility] PAIN OFFICE [address] [place] [address] 01/09/2024 10:01:40 01/09/2024 15:01:59 Displacement of lumbar intervertebral disc without myelopathy 53793816 M51.26 Lumbosacra l radiculitis 95028399 M54.17 Brachial radiculitis 278 12274 M54.12 Cervical post-laminectomy syndrome 348255442 M96.1 Degenerati on of cervical intervertebral disc 14195073 M50.30 Occipital headache 73655 7 R51.9 59512 Evelio Smith MD [facility] PAIN OFFICE [address] [place] [address] 03/27/2024 10:21:43 03/31/2024 16:07:49 Displacement of lumbar intervertebral disc without myelopathy 11081648 M51.26 Lumbosacra l radiculitis 99174083 M54.17 Brachial radiculitis 278 76990 M54.12 Cervical post-laminectomy syndrome 096702847 M96.1 Degenerati on of cervical intervertebral disc 47989391 M50.30 Occipital headache 08183 7 R51.9 Health Concerns Section Related Observation LastModified by Organization Detai ls LastModified Time None Recorded Concern Status LastModified by Organization Details LastModified Time None Recorded Advance Directives Directive None Recorded Payers Insurance Date Sequence Insurance Name Policy Number Policy Mojica Covered Member ID Mojica Member ID Guarantor Name 04/01/2024 1 [employer] [place] [employer] [employer] (MEDICARE REPLACEMENT PPO) Angemajo Montesinos [id number] 04/01/2024 1 [facility] - DIRECT CONNECTORCARE TYPE I (HMO) Angemajo Montesinos [id number] 04/01/2024 1 [employer] [place] [employer] (MEDICARE REPLACEMENT PPO) Ange Jaguar [id number] 04/01/2024 1 [facility] - [place] (MEDICARE REPLACEMENT PPO) Angemajo Richon [id number] 04/01/2024 2 [facility] (O) Ange Jaguar [id number] 04/01/2024 1 [facility] (O) [id number] Ange Montesinos [id number] 04/01/2024 2 [employer] [facility] (MEDICAID REPLACEMENT - HMO) Ange Montesinos [id number] 04/01/2024 1 [facility] (MEDICAID REPLACEMENT - HMO) SHARYN Montesinos [id number] 04/01/2024 2 [facility] - DOS PRIOR TO 2023 (MEDICARE REPLACEMENT/ADV ANTAGE - PPO) Ange Montesinos [id number] 04/01/2024 1 [facility] - DOS ON OR AFTER 2023 - [facility] (MEDICARE REPLACEMENT/ADV ANTAGE - HMO) Ange Montesinos [id number] 04/01/2024 1 [place] [facility] Ange Montesinos [id number] 04/01/2024 1 [facility] (MEDICARE REPLACEMENT/ADV ANTAGE - PPO) [id number] Ange Montesinos [id number] 04/01/2024 2 [facility] - DOS PRIOR TO 2023 (MEDICARE REPLACEMENT/ADV ANTAGE - PPO) Ange Montesinos [id number] Notes Date Note Type Note Provider Name [...] bladder or bowel incontinence. Evelio Smith MD [address] [place] [address] , [address], [place], [address], [place] - [facility] 01/31/2023 15:49:56 04/01/2023 text/html [...] this time.She states she has been having [place] Palsy for the past one year and sees Dr. 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 She has weakness in her arms and legs . Evelio Smith MD [address] [facility] , [address], [place], [address], [facility] 04/05/2023 12:20:51 12/02/2023 text/html She states she has been having pain since 6971-9115. She is having an exacerbation of pain [...] [facility] [place] . She has done physical therapy and had an exacerbation of her pain.She has seen a neurosurgeon in [place], [place] . She wants to wait as she is planning on a knee replacement. She is also in grief as she has lost her mother last year. Evelio Smith MD [email or web address] , [address], [place], [address], [facility] 12/04/2023 16:33:41 01/09/2024 text/html She is here for a lumbar epidural steroid injection under fluoroscopic guidance. Evelio Smith MD [address] [facility] , [address], [place], [address], [facility] - Pain Management 01/09/2024 15:09:18 03/27/2024 text/html She states she has been having pain since 8178-8799. She is having an exacerbation of pain [...] [facility] [place] . She has done physical therapy and had an exacerbation of her pain.She has seen a neurosurgeon in [place] . She is S/P knee replacement on 03/03/[address] Segundo and is on eliquis. Evelio Smith MD [email or web address] , [address], [place], [address], [facility] - Pain Management 03/31/2024 16:06:56 OBGyn Episode No OBEpisode recorded.
--- OUTSIDE RECORDS SUMMARY | 2025-08-17 18:37 | XMS_ITS | Clinical Summary ---
Author Organization [facility] Address [address] [place] [address] Phone Care Team Providers Care Gyroscope Technician Name Role Phone Mily Lawrence MD Primary Care Provider [phone] Allergies Active Allergy Reactions Criticality Noted Date [...] USE ONCE DAILY A FACE WASH Active onabotulinumto xinA (Botox) 200 unit injection [...] day. 180 tablet 3 09/24/20 24 Active atorvastatin (LIPITOR) 10 mg tablet Take 1 tablet (10 mg total) by mouth 1 (one) time each day. 90 tablet 2 09/24/20 24 Active cholecalcifero l (VITAMIN D-3) 50 mcg (2,000 unit) capsule TAKE 1 CAPSULE BY MOUTH EVERY DAY 90 capsule 3 11/19/19 25 Active thiamine 100 mg tablet Take 1 tablet (100 mg total) by mouth 1 (one) time each day. 210 tablet 1 12/14/19 25 Active hydroCHLOROthi azide 12.5 mg tablet TAKE 1 TABLET BY MOUTH 1 TIME EACH DAY. 28 tablet 5 03/12/20 25 Active melatonin 3 mg tablet TAKE 1 TABLET BY MOUTH EVERYDAY AT BEDTIME 28 tablet 2 04/08/20 25 Active celecoxib (CeleBREX) 200 mg capsuleIndicat ions:Presence of left artificial knee joint TAKE 1 CAPSULE BY MOUTH TWICE A DAY NEEDED FOR PAIN TAKE WITH FOOD STAY HYDRATED 60 capsule 3 05/07/20 25 Active traZODone (DESYREL) 50 mg tablet TAKE 1 TABLET BY MOUTH EVERY NIGHT AT BEDTIME. 28 tablet 6 05/07/20 25 Active cetirizine (ZyrTEC) 10 mg tabletIndicati ons:Seasonal allergies TAKE 1 TABLET BY MOUTH 1 TIME EACH DAY. 28 tablet 2 05/11/20 25 Active Vitamin B-6 250 mg tablet TAKE 1 TABLET BY MOUTH EVERY DAY 84 tablet 1 06/29/20 25 Active omeprazole (PriLOSEC) [address] capsule TAKE 1 CAPSULE BY MOUTH EVERY DAY 28 capsule 2 07/02/20 25 Active Daily-Michelle, with folic acid, 400 mcg tablet TAKE 1 TABLET BY MOUTH EVERY DAY 28 tablet 2 07/02/20 25 Active lisinopriL (PRINIVIL,ZEST RIL) 30 mg tablet TAKE 1 TABLET BY MOUTH 1 TIME EACH DAY. 90 tablet 2 07/02/20 25 Active sertraline (ZOLOFT) 100 mg tablet TAKE 1 TABLET BY MOUTH EVERY DAY 28 tablet 8 07/30/20 25 Active sertraline (ZOLOFT) 100 mg tablet TAKE 1 TABLET BY MOUTH EVERY DAY 84 tablet 2 11/19/19 25 025 Discontinued Hospital, Clinic, or Other Facility Administered Medication Ordered Dose Route Frequency Start Date End Date Status lidocaine (XYLOCAINE) 1 % injection 0.5 mLIndications:Trigge r finger of right thumb .5 mL Once PRN Procedure 07/20/2025 07/20/2025 Ended lidocaine (XYLOCAINE) 1 % injection 0.5 mLIndications:Trigge r ring finger of right hand .5 mL Once PRN Procedure 07/20/2025 07/20/2025 Ended triamcinolone acetonide (KENALOG-40) 40 mg/mL injection 40 mgIndications:Trigge r finger of right thumb 40 mg Once PRN Procedure 07/20/2025 07/20/2025 Ended triamcinolone acetonide (KENALOG-40) 40 mg/mL injection 40 mgIndications:Trigge r ring finger of right hand 40 mg Once PRN Procedure 07/20/2025 07/20/2025 Ended Active Problems Problem Noted Date Diagnosed [...] spinal instrumentation performed by Dr. Hayward at [facility] in [place]. This the surgery, she has been a patient in rehab at [address] [place] [address]. While there, she is participating in physical [...] (08/07/2024): On CPAP started 2016 Hyperlipidemia 12/07/2017 Assessment & Plan (06/07/2025 4:12 PM EDT): Breast microcalcification, mammographic 10/21/19 18 Essential hypertension 03/14/2017 GERD (gastroesophageal reflux disease) 6 Assessment & Plan (06/07/2025 4:12 PM EDT): Depression with anxiety 01/12/2016 Assessment & Plan (06/07/2025 4:12 PM EDT): Insomnia 06/09/2015 Assessment & Plan (06/07/2025 4:12 PM EDT): Vitamin D deficiency 02/15/2015 Assessment & Plan (06/07/2025 4:12 PM EDT): Orders: Vitamin D 25 hydroxy; Future Resolved Problems Problem Noted Date Diagnosed Date Resolved Date Status post total left knee replacement 10/06/2024 03/24/2025 Primary osteoarthritis of left knee 02/19/2023 03/24/2025 Primary osteoarthritis of both knees 01/30/2018 03/24/2025 Encounters Date Type Department Care Team Description 08/04/2025 Results Follow-Up Internal Medicine - [place] [address] [facility] [address] [place] [address] Jessa Gandhi NP 07/20/2025 2:15 PM EDT Office Visit Orthopedic [facility] [address] [facility] [address] [place] [address] Marci Bernardo PA Trigger finger of right thumb (Primary Dx); Trigger ring finger of right hand 06/16/2025 Telephone Orthopedic Surgery [facility] [address] [facility] [address] [place] [address] Aida White PA 06/15/2025 3:07 PM EDT - 06/15/2025 11:59 PM EDT Hospital Encounter [facility] MRI [address] [place] [address] Nontraumatic complete tear of right rotator cuff Discharge Disposition: Home or Self Care 06/09/2025 2:30 PM EDT Consult Orthopedic Surgery [facility] 160 [address] [facility] [address] [place] [phone] Trey Richter MD Nontraumatic complete tear of right rotator cuff (Primary Dx) 06/07/2025 3:00 PM EDT Office Visit Internal Medicine [facility] [address] [facility] [address] [place] [address] Jessa Gandhi NP Routine adult health maintenance (Primary Dx); Screening for ischemic heart disease; Screening for diabetes mellitus; Vitamin B12 deficiency; Vitamin D deficiency; Pityriasis alba; Arthritis; Menopause; Primary hypertension; Hearing difficulty of both ears; Hyperlipidemia, unspecified hyperlipidemia type; Seasonal allergies; Gastroesophageal reflux disease, unspecified whether esophagitis present; Insomnia, unspecified type; Depression with anxiety; BMI 31.0-31.9,adult 06/03/2025 9:45 AM EDT Office Visit Neurosurgery - [place] [address] [place] [phone] Nathan Hayward MD S/P lumbar fusion (Primary Dx) 05/28/2025 Telephone Orthopedic Surgery - [address] [address] Brian Ferrari MD from Last 3 Months Immunizations Immunization Administration Dates Next Due Hepatitis B (Afkypsh-P-Efqok , Recombivax HB-Adult) 19yo and older 10/27/2019,05/26/2019,04/22/2019 [...] [facility] ([facility]); Service: Spine; Laterality: [...] replacement; COMMENT: 01/2019 DVT (deep venous thrombosis) ([facility] V24, CMS/HCC V28) 04/01/2019 DX:DVT (deep venous thrombos is) ([facility]); COMMENT: 02/2019 on Xarelto Epigastric pain DX:Epigastric pa in Nausea and vomiting DX:Nausea an d vomiting Diarrhea DX:Diarrhea Family History Medical History Relation Name Comments Breast cancer Aunt maternal mat aunt breconor t ca 30s and again 40s Arthritis [...] care for your loved ones. For example, school childcare attendant or elderly care for an older adult? [...] Sign Reading Time Taken Comments Blood Pressure 129/76 06/07/2025 2:43 PM EDT Pulse 84 06/07/2025 2:43 PM EDT Temperature 36.2 C (97.1 F) 06/07/2025 2:43 PM EDT Respiratory Rate - - Oxygen Saturation 96% 06/07/2025 2:43 PM EDT Inhaled Oxygen Concentration - - Weight 85.3 kg (188 lb) 06/09/2025 2:26 PM EDT Height 162.6 cm (5' 4 ) 06/09/2025 2:26 PM EDT Body Mass Index 32.27 06/09/2025 2:26 PM EDT Plan of Treatment Upcoming Encounters Date Type Department Care Team (Late st Contact Info) Description 08/20/2025 4:45 PM EDT Appointment [facility] CT Scan [address] [place] [phone] 08/31/2025 2:15 PM EST Office Visit Orthopedic Surgery - [place] [address] [facility] [address] [place] [phone] Marci Bernardo PA [address] [place] [phone] 12/14/2025 2:30 PM EST Office Visit Internal Medicine - [place] [address] [facility] [address] [place] [phone] Mily Lawrence MD [address] [place] [phone] Health Maintenance Due Date Last Done Comments DTaP,Tdap,and Td Vaccines (1 - Tdap) 1986 Pneumococcal Vaccine: 50+ Years (2 of 2 - PCV) 2017 02/05/2008 Zoster Vaccines (1 of 2) 2017 COVID-19 Vaccine ( - season) 2025 08/20/2022, 02/27/2022, 09/22/2021, Additional history exists Influenza Vaccine (#1) 2025 2, 07/21/2021, 07/22/2020, Additional history exists Social Influencers of Health Screening 06/06/2026 06/06/2025 Medicare Annual Wellness Visit 06/07/2026 06/07/2025 Hypertension/CHF/CAD Annual BMP Blood Test 06/09/2026 06/09/2025, 02/19/2025, 07/19/2024, Additional history exists Cervical Cancer Screening: HPV 07/13/2026 07/13/2021 Breast Cancer Screening 03/08/2027 03/08/20 25, 10/29/2023, 09/28/2022, Additional history exists Colorectal Cancer Screening: Colonoscopy 03/24/2028 03/24/2018 Cholesterol Screening (Lipid Panel) 06/09/2030 06/09/2025, 02/19/2025, 12/09/2023 RSV Immunization Adult Patients (1 - 1-dose 75+ series) 2042 Hepatitis B Vaccines Completed 10/27/2019, 05/26/2019, 04/22/2019 HIV Screening Completed 08/05/2023 Hepatitis C Screening Completed 08/05/2023 Depression Screening Completed 06/07/2025, 05/11/20 24 HIB Vaccines Aged Out No [...] this topic Medical Devices Implanted Type Area Bird Trapper Device Identifier Shelf Expiration Date Model / Serial / Lot Ragini Vesuvius 100 5ml Stry-K2m [id number] - [id number] Implanted:Qty: 1 on 07/16/2024 by Nathan Hayward MD N/A: Spine Lumbar LAXMI SPINE 02/17/2027 [id number] / [id number] / Bone Graft Spine Infus Xsm Medt-Sofa [id number] Implanted:Qty: 1 on 07/16/2024 by Nathan Hayward MD N/A: Spine Lumbar [employer] SOFAMOR DANEK 11/20/2025 [id number] / / [id number] [place] Interbody System Implanted:Qty: 1 on 07/16/2024 by Nathan Hayward MD N/A: Spine Lumbar LAXMI - MEDICAL 10/30/2028 [id number] / / [id number] Plate [facility] 2hl 18mm Stry-K2m [id number] Implanted:Qty: 1 on 07/16/2024 by Nathan Hayward MD N/A: Spine Lumbar LAXMI SPINE [id number] / / 5.0x40mm Screw Implanted:Qty: 2 on 07/16/2024 by Nathan Hayward MD N/A: Spine Lumbar LAXMI - MEDICAL [id number] / / Plate Assembly Screw Implanted:Qty: 1 on 07/16/2024 by Nathan Hayward MD N/A: Spine Lumbar LAXMI - MEDICAL [id number] / / Procedures Procedure Name Priority Date/Time Associated Diagnosis Comments PA INJECTION SINGLE TENDON SHEATH OR LIGAMENT APONEUROSIS Routine 07/20/2025 2:15 PM EDT Trigger ring finger of right hand PA INJECTION SINGLE TENDON SHEATH OR LIGAMENT APONEUROSIS Routine 07/20/2025 2:15 PM EDT Trigger finger of right thumb MR SHOULDER WO CONTRAST RIGHT Routine 06/15/2025 4:14 PM EDT Nontraumatic complete tear of right rotator cuff LIPID PANEL WITH REFLEX TO DIRECT LDL Routine 06/09/2025 2:07 PM EDT Screening for ischemic heart disease COMPREHENSIVE METABOLIC PANEL Routine 06/09/2025 2:07 PM EDT Routine adult health maintenance HEMOGLOBIN A1C Routine 06/09/2025 2:07 PM EDT Screening for diabetes mellitus MAGNESIUM Routine 06/09/2025 2:07 PM EDT Routine adult health maintenance VITAMIN B12 Routine 06/09/2025 2:07 PM EDT Vitamin B12 deficiency VITAMIN D 25 HYDROXY Routine 06/09/2025 2:07 PM EDT Vitamin D deficiency C-REACTIVE PROTEIN Routine 06/09/2025 2: 07 PM EDT Arthritis FRANSISCA IFA WITH TITER AND PATTERN Routine 06/09/2025 2:07 PM EDT Arthritis RHEUMATOID FACTOR Routine 06/09/2025 2:0 7 PM EDT Arthritis TESTOSTERONE FREE, BIOAVAILABLE AND TOTAL Routine 06/09/2025 2:07 PM EDT Menopause ESTROGENS, TOTAL AND FRACTIONATED Routine 06/09/2025 2:07 PM EDT Menopause MG MAMMO DIGITAL SCREENING W JAIME BILAT Routine 03/08/2025 3:09 PM EDT Encounter for screening mammogram for malignant neoplasm of breast DEPRESSION SCREENING Routine 05/11/2024 HEPATITIS C SCREENING Routine 08/05/2023 HIV SCREENING Routine 08/05/2023 HPV Routine 07/13/2021 COLONOSCOPY Routine 03/24/2018 from Last 3 Months or Most Recently Relevant to Health Maintenance Results * PA INJECTION SINGLE TENDON SHEATH OR LIGAMENT APONEUROSIS (07/20/2025 2:15 PM EDT) Marci Babin PA - 07/20/2025 2:15 PM EDT JOHN Sanchez 07/20/2025 3:08 PM Hand / UE Inj/Asp: R ring A1 for trigger finger Indications: pain Details: 25 G needle, volar approach Medications: 40 mg triamcinolone acetonide 40 mg/mL; 0.5 mL lidocaine 1 % Informed Consent: Laterality: Right Relevant images/test results available and reviewed: yes Health status cleared: Yes Procedure/treatment, purpose, treatment alternatives, risks/potential complications and benefits explained: yes Risk/complications/benefits details: Risks of infection, thinning of the skin and temporary skin discoloration discussed. Discussed risks of temporary increased pain after injection and swelling and mild redness at injection site for couple days. Explained occasionally cortisone injection can cause facial flushing temporarily. Benefits pain management. For postop injection pain ice, Tylenol and/or NSAIDs if patient can take Patient questions answered: yes Patient agrees, verbalizes understanding, and wants to proceed: yes Consent given by: Patient Informed consent discussion completed by Physician/TESFAYE with patient: Verbal Pre-procedure timeout performed: yes Marci LOPEZ IN CLINIC/BEDSIDE ORDERABLES Final Result * PA INJECTION SINGLE TENDON SHEATH OR LIGAMENT APONEUROSIS (07/20/2025 2:15 PM EDT) Marci Babin PA - 07/20/2025 2:15 PM EDT JOHN Sanchez 07/20/2025 3:08 PM Hand / UE Inj/Asp: R thumb A1 for trigger finger Indications: pain Details: 25 G needle, volar approach Medications: 40 mg triamcinolone acetonide 40 mg/mL; 0.5 mL lidocaine 1 % Informed Consent: Laterality: Right Relevant images/test results available and reviewed: yes Health status cleared: Yes Procedure/treatment, purpose, treatment alternatives, risks/potential complications and benefits explained: yes Risk/complications/benefits details: Risks of infection, thinning of the skin and temporary skin discoloration discussed. Discussed risks of temporary increased pain after injection and swelling and mild redness at injection site for couple days. Explained occasionally cortisone injection can cause facial flushing temporarily. Benefits pain management. For postop injection pain ice, Tylenol and/or NSAIDs if patient can take Patient questions answered: yes Patient agrees, verbalizes understanding, and wants to proceed: yes Consent given by: Patient Informed consent discussion completed by Physician/TESFAYE with patient: Verbal Pre-procedure timeout performed: yes us Marci LOPEZ IN CLINIC/BEDSIDE ORDERABLES Final Result * MR Shoulder wo Contrast Right (06/15/2025 4:14 PM EDT) Anatomical Region Laterality Modality Upper Extremities, Shoulder Right Magn etic Resonance 06/16/2025 5:52 AM EDT Impressions 06/16/2025 5:58 AM EDT 1. Progression of high-grade/near complete partial-thickness tear of the distal supraspinatus tendon with underlying tendinosis 2. Moderate right glenohumeral degenerative changes 3. Moderate to severe right AC joint arthropathy -------- FINAL REPORT -------- Dictated By: Kylee Michaud Dictated Date: 06/16/2025 05:52 ET Assigned Physician: Kylee Michaud Reviewed and Electronically Signed By: Kylee Michaud Signed Date: 06/16/2025 05:58 ET Workstation ID: [id number] Transcribed By: Self Edit Transcribed Date: 06/16/2025 05:52 ET Narrative 06/16/2025 5:58 AM EDT INDICATION: Shoulder pain, rotator cuff disorder suspected, xray done COMPARISON: Prior MRI of the right shoulder dated November 2023 TECHNIQUE: Multiplanar, multisequence MRI examination was performed of the right shoulder without intravenous contrast. FINDINGS: Scan sensitivity is degraded due to inhomogeneous fat suppression. Rotator Cuff: Focal fluid signal involving the distal supraspinatus tendon measuring approximately 7 x 9 mm (AP by TV) with high-grade partial-thickness/near complete tearing (progressed from November 2023) with underlying supraspinatus tendinosis. Infraspinatus tendinosis. Subscapularis tendon is intact. No significant muscle volume loss or fatty infiltration. Biceps Tendon: Intra-articular biceps tendon tearing Labrum: Degenerative tearing with small associated posterior paralabral cyst Bone/Cartilage: Moderate glenoid and humeral head cartilage thinning with inferiorly directed humeral head osteophyte and glenoid osteophyte formation. Cystic change along the humeral head. AC Joint: Moderate to severe right AC joint arthropathy with subacromial spur Miscellaneous:Small amount of subacromial/subdeltoid bursal fluid. Right shoulder joint fluid with small amount of fluid signal extending into the proximal biceps tendon sheath Procedure Note Kylee Michaud MD - 06/16/2025 INDICATION: Shoulder pain, rotator cuff disorder suspected, xray done COMPARISON: Prior MRI of the right shoulder dated November 2023 TECHNIQUE: Multiplanar, multisequence MRI examination was performed ofthe right shoulder without intravenous contrast. FINDINGS: Scan sensitivity is degraded due to inhomogeneous fatsuppression. Rotator Cuff: Focal fluid signal involving the distal supraspinatustendon measuring approximately 7 x 9 mm (AP by TV) with xraz-lovfjttpzycg-lzhltslal/near complete tearing (progressed from November 2023)with underlying supraspinatus tendinosis. Infraspinatus tendinosis.Subscapularis tendon is intact. No significant muscle volume loss orfatty infiltration. Biceps Tendon: Intra-articular biceps tendon tearing Labrum: Degenerative tearing with small associated posterior paralabralcyst Bone/Cartilage: Moderate glenoid and humeral head cartilage thinning withinferiorly directed humeral head osteophyte and glenoid osteophyteformation. Cystic change along the humeral head. AC Joint: Moderate to severe right AC joint arthropathy with subacromialspur Miscellaneous:Small amount of subacromial/subdeltoid bursal fluid. Rightshoulder joint fluid with small amount of fluid signal extending into theproximal biceps tendon sheath IMPRESSION: 1. Progression of high-grade/near complete partial-thickness tear of thedistal supraspinatus tendon with underlying tendinosis 2. Moderate right glenohumeral degenerative changes 3. Moderate to severe right AC joint arthropathy -------- FINAL REPORT -------- Dictated By: Kylee Michaud Dictated Date: 06/16/2025 05:52 ET Assigned Physician: Kylee Michaud Reviewed and Electronically Signed By: Kylee Michaud Signed Date: 06/16/2025 05:58 ET Workstation ID: [id number] Transcribed By: Self Edit Transcribed Date: 06/16/2025 05:52 ET Trey Richter MD [facility] MRI PROCEDURES Final Resul t * Estrogens, total and fractionated (06/09/2025 2:07 PM EDT) Estrone 13 pg/mL 06/15/2025 3:26 PM EDT [facility] Comment: Early Follicular <150 Late Follicular 100-250 Luteal <200 Post-menopausal 3-32 Estradiol 5 pg/mL 06/15/2025 3:26 PM EDT [facility] Comment: Early Follicular 30-100 Late Follicular 100-400 Luteal 50-150 Post-menopausal 2-21 Estrogens, Total, Calculation 18 pg/mL 06/15/2025 3:26 PM EDT [facility] Comment: Early Follicular 30-250 Late Follicular 200-650 Luteal 50-350 Post-menopausal 5-52 Note that total estrogens from estrone plus estradiol are not valid in due to presence of estriol at significant levels. This test was developed and its performance characteristics determined by [facility] in a manner consistent with CLIA requirements. This test has not been cleared or approved by the U.S. Food and Drug Administration. This test is used for patient testing purposes. It should not be regarded as investigational or for research. Test performed at [facility], [address], [place] [address] Adina Kramer MD, PhD - Elevator Starter Blood Venous blood specimen / Unknown Venipuncture / Unknown 06/09/2025 2:07 PM EDT 06/09/2025 2:07 PM EDT Jessa Gandhi NP LAB BLOOD ORDERABLES Final Resul t [facility] [address] [place] [address] * (ABNORMAL) Lipid panel with reflex to direct LDL (06/09/2025 2:07 PM EDT) Cholesterol 232(H) 0 - 200 mg/dL LAB CHEMISTRY METHOD 06/09/2025 7:17 PM EDT [facility] Triglycerides 73 0 - 150 mg/dL LAB CHEMISTRY METHOD 06/09/2025 7:17 PM EDT [facility] HDL 59 >=40 mg/dL LAB CHEMISTRY METHOD 06/09/2025 7:17 PM EDT [facility] LDL Calculated 158(H) 0 - 100 mg/dL LAB CHEMISTRY METHOD 06/09/2025 7:17 PM EDT [facility] Comment:Estimated LDL Calcul ated using equation: Total cholesterol - HDL cholesterol - (Triglycerides/5) VLDL Cholesterol Jose Luis 14.6 mg/dL LAB CHEMISTRY METHOD 06/09/2025 7:17 PM EDT [facility] Non HDL Chol. (LDL+VLDL) 173(H) <145 mg/dL LAB CHEMISTRY METHOD 06/09/2025 7:17 PM EDT [facility] Chol/HDL Ratio 3.9 0.0 - 4.4 LAB CHEMISTRY METHOD 06/09/2025 7:17 PM EDT [facility] Blood Venous blood specimen / Unknown Venipuncture / Unknown 06/09/2025 2:07 PM EDT 06/09/2025 2:07 PM EDT us Jessa Gandhi NP LAB BLOOD ORDERABLES Final Resul t [facility] [address] [place] [address], [place] [phone] * (ABNORMAL) Testosterone free, bioavailable and total (06/09/2025 2:07 PM EDT) Testosterone 43 7 - 46 ng/dL LAB CHEMISTRY METHOD 06/09/2025 8:11 PM T [facility] Testosterone, Free 0.6(H) 0.0 - 0.5 ng/dL LAB CHEMISTRY METHOD 06/09/2025 8:11 PM [facility] Testosterone, Bioavailable 13(H) 1 - 9 ng/dL LAB CHEMISTRY METHOD 06/09/2025 8:11 PM [facility] Sex Hormone Binding 57.8 See Comment nmol/L LAB CHEMISTRY METHOD 06/09/2025 8:11 PM T [facility] Comment: FEMALES: pre-menopausal 10.8 - >180 post-menopausal 23.2 - 159.1 MALES: 21-49 years 14.6 - 94.6 50-89 years 21.6 - 113.1 CHILDREN: No established reference range Over the counter supplements containing high doses of biotin may interfere with this assay. If interference is suspected, patients should be retested after refraining from biotin supplements for 72 hours. Albumin 3.9 3.2 - 5.0 g/dL LAB CHEMISTRY METHOD 06/09/2025 8:11 PM EDT [facility] Blood Venous blood specimen / Unknown Venipuncture / Unknown 06/09/2025 2:07 PM EDT 06/09/2025 2:07 PM EDT [facility] LAB BLOOD ORDERABLES Final Resul t Performing Organization Address City/[facility]/ZIP Co de Phone Number [facility] [address] [place] [address], [place] [phone] * FRANSISCA IFA with titer and pattern (06/09/2025 2:07 PM EDT) FRANSISCA Negative Negative 06/14/2025 11:35 AM EDT [facility] Comment:FRANSISCA performed by ind irect immunofluorescence (IFA) using HEp-2 substrate. Blood Venous blood specimen / Unknown Venipuncture / Unknown 06/09/2025 2:07 PM EDT 06/09/2025 2:07 PM EDT Judi Hiram LAB BLOOD ORDERABLES Final Resul t Performing Organization Address [facility]/ZIP Co de Phone Number [facility] [address] [place] [address], [place] [phone] * Vitamin D 25 hydroxy (06/09/2025 2:07 PM EDT) Vit D, 25-Hydroxy 34.9 30.0 - 80.0 ng/mL LAB CHEMISTRY METHOD 06/09/2025 8:11 PM EDT [facility] Blood Venous blood specimen / Unknown Venipuncture / Unknown 06/09/2025 2:07 PM EDT 06/09/2025 2:07 PM EDT Jessa Gandhi DOCUMENT COORDINATOR LAB BLOOD ORDERABLES Final Resul t [facility] [address] [place] [address], [place] [phone] * Rheumatoid factor (06/09/2025 2:07 PM EDT) Pathologist [facility] Rheumatoid Factor <10.0 <15.0 I Unit/mL LAB CHEMISTRY METHOD 06/09/2025 7:33 PM EDT [facility] Blood Venous blood specimen / Unknown Venipuncture / Unknown 06/09/2025 2:07 PM EDT 06/09/2025 2:07 PM EDT Jessa Gandhi DOCUMENT COORDINATOR LAB BLOOD ORDERABLES Final Resul t Performing Organization Address [facility] Co de Phone Number [facility] [address] [place] [address], [place] [phone] * (ABNORMAL) C-reactive protein (06/09/2025 2:07 PM EDT) [facility] C-Reactive Protein 0.52(H) <=0.50 mg/dL LAB CHEMISTRY METHOD 06/09/2025 6:54 PM EDT [facility] Blood Venous blood specimen / Unknown Venipuncture / Unknown 06/09/2025 2:07 PM EDT 06/09/2025 2:07 PM EDT Jessa Gandhi DOCUMENT COORDINATOR LAB BLOOD ORDERABLES Final Resul t [facility] [address] [place] [address], [place] [phone] * Magnesium (06/09/2025 2:07 PM EDT) [facility] Magnesium 2.3 1.9 - 2.6 mg/dL LAB CHEMISTRY METHOD 06/09/2025 6:54 PM EDT [facility] Blood Venous blood specimen / Unknown Venipuncture / Unknown 06/09/2025 2:07 PM EDT 06/09/2025 2:07 PM EDT us Jessa Gandhi DOCUMENT COORDINATOR LAB BLOOD ORDERABLES Final Resul t Performing Organization Address City/[facility]/ZIP Co de Phone Number [facility] [address] [place] [address], [place] [phone] * Hemoglobin A1c (06/09/2025 2:07 PM EDT) Hemoglobin A1C 5.3 <6.5 % LAB CHEMISTRY METHOD 06/09/2025 10:06 PM EDT [facility] Mean Bld Glu Estim. 105 mg/dL LAB CHEMISTRY METHOD 06/09/2025 10:06 PM EDT [facility] Blood Venous blood specimen / Unknown Venipuncture / Unknown 06/09/2025 2:07 PM EDT 06/09/2025 2:07 PM EDT Jessa Gandhi DOCUMENT COORDINATOR LAB BLOOD ORDERABLES Final Resul t Performing Organization Address [facility] [[email or web address]] de Phone Number [facility] [address] [place] [address], [place] [phone] * Vitamin B12 (06/09/2025 2:07 PM EDT) Vitamin B-12 772 250 - 900 pcg/mL LAB CHEMISTRY METHOD 06/09/2025 7:17 PM EDT [facility] Blood Venous blood specimen / Unknown Venipuncture / Unknown 06/09/2025 2:07 PM EDT 06/09/2025 2:07 PM EDT us Jessa Gandhi DOCUMENT COORDINATOR LAB BLOOD ORDERABLES Final Resul t [facility] [address] [place] [address], [place] [phone] * Comprehensive metabolic panel (06/09/2025 2:07 PM EDT) Sodium 140 133 - 145 mmol/L LAB CHEMISTRY METHOD 06/09/2025 7:17 PM EDT [facility] Potassium 4.7 3.5 - 5.5 mmol/L LAB CHEMISTRY METHOD 06/09/2025 7:17 PM EDT [facility] Chloride 108 96 - 110 mmol/L LAB CHEMISTRY METHOD 06/09/2025 7:17 PM T [facility] CO2 28 21 - 32 mmol/L LAB CHEMISTRY METHOD 06/09/2025 7:17 PM [facility] Anion Gap 4 3 - 11 LAB CHEMISTRY METHOD 06/09/2025 7:17 PM [facility] Glucose 98 70 - 100 mg/dL LAB CHEMISTRY METHOD 06/09/2025 7:17 PM [facility] BUN 15 5 - 25 mg/dL LAB CHEMISTRY METHOD 06/09/2025 7:17 PM [facility] Creatinine 0.81 0.50 - 1.10 mg/dL LAB CHEMISTRY METHOD 06/09/2025 7:17 PM [facility] eGFR 85 >=60 mL/min/1. 73m2 LAB CHEMISTRY METHOD 06/09/2025 7:17 PM [facility] Comment:Calculation based on the Chronic Kidney Disease Epidemiology Collaboration (CKD-EPI) equation refit without adjustment for race. BUN/Creatinine Ratio 18.5 LAB CHEMISTRY METHOD 06/09/2025 7:17 PM [facility] Calcium 9.4 8.5 - 10.5 mg/dL LAB CHEMISTRY METHOD 06/09/2025 7:17 PM [facility] AST (SGOT) 22 10 - 42 unit/L LAB CHEMISTRY METHOD 06/09/2025 7:17 PM EDT [facility] ALT (SGPT) 27 10 - 60 unit/L LAB CHEMISTRY METHOD 06/09/2025 7:17 PM EDT [facility] Alkaline Phosphatase 60 42 - 121 unit/L LAB CHEMISTRY METHOD 06/09/2025 7:17 PM EDT [facility] Total Protein 7.4 6.0 - 8.0 g/dL LAB CHEMISTRY METHOD 06/09/2025 7:17 PM EDT [facility] Albumin 3.9 3.2 - 5.0 g/dL LAB CHEMISTRY METHOD 06/09/2025 7:17 PM EDT [facility] Total Bilirubin 0.6 0.0 - 1.4 mg/dL LAB CHEMISTRY METHOD 06/09/2025 7:17 PM EDT [facility] Blood Venous blood specimen / Unknown Venipuncture / Unknown 06/09/2025 2:07 PM EDT 06/09/2025 2:07 PM EDT us Jessa Gandhi NP LAB BLOOD ORDERABLES Final Resul t [facility] [address] [place] [address], [place] [phone] * MG Mammo Digital Screening w Jaime bilat (03/08/2025 3:09 PM EDT) Anatomical Region Laterality Modality Breast Bilateral Mammography 03/09/2025 7:42 AM EDT Impressions 03/09/2025 7:47 AM EDT No mammographic evidence of malignancy. A negative mammogram in the presence of a clinically suspicious palpable abnormality does not preclude the possibility of malignancy or alter the indications for biopsy. PQRI CPT II 3342F Code 08380, 20148 PQRI 225 CPT II 7025F TISSUE DENSITY: The breasts are almost entirely fatty. (BI-RADS Category A) IMPRESSION: Benign. BI-RADS CATEGORY: 2 - BENIGN RECOMMENDATION: Screening bilateral mammogram is recommended in 1 year. Mammo Location: [facility], [address] [place] [id number] -------- FINAL REPORT -------- Dictated By: Oscar Adam Dictated Date: 03/09/2025 07:42 ET Assigned Physician: Oscar Adam Reviewed and Electronically Signed By: Oscar Adam Signed Date: 03/09/2025 07:47 ET Workstation ID: [id number] Transcribed By: Self Edit Transcribed Date: 03/09/2025 [...] and CC projection is performed in the [place] 2000-D unit. Computer aided detection utilizing the iCAD system was utilized. FINDINGS: The breasts are [...] MLO and CC projection is performed in [employer] 2000[employer] unit. Computer aided detection utilizing the iCADsystem was utilized. FINDINGS: The breasts are again [...] for biopsy. PQRI CPT II 3342F Code 37779, 85484 PQRI 225 CPT II 7025F TISSUE DENSITY: The breasts are almost entirely fatty. (BI-RADS CategoryA) IMPRESSION: Benign. BI-RADS CATEGORY: 2 - BENIGN RECOMMENDATION: Screening bilateral mammogram is recommended in 1 year. Mammo Location: [facility], [address] [place] [phone] -------- FINAL REPORT -------- Dictated By: Oscar Adam Dictated Date: 03/09/2025 07:42 ET Assigned Physician: Oscar Adam Reviewed and Electronically Signed By: Oscar Adam Signed Date: 03/09/2025 07:47 ET Workstation ID: [id number] Transcribed By: Self Edit Transcribed Date: 03/09/2025 07:42 ET Jessa Gandhi DOCUMENT COORDINATOR IMG BI PROCEDURES Final Result * Depression Screening (05/11/2024) [facility] Depression Screening Abstracted [facility] Provider HEALTH MAINTENANCE Final Result * HIV Screening (08/05/2023) [facility] HIV Screening Abstracted [facility] Provider HEALTH MAINTENANCE Final Result * Hepatitis C Screening (08/05/2023) [facility] Hepatitis C Screening Abstracted [facility] Provider HEALTH MAINTENANCE Final Result * Cervical Cancer Screening: HPV (07/13/2021) [facility] Cervical Cancer Screening: HPV Negative, abstracted [facility] Provider HEALTH MAINTENANCE Final Result * Colonoscopy (03/24/2018) [facility] Colonoscopy No interpretation , abstracted Comment:External Completion of test per patient (Patient reports normal results) Anatomical Region Laterality Modality Other us Historical Provider HEALTH MAINTENANCE Final Result from Last 3 Months or Most Recently Relevant to Health Maintenance Insurance [employer] Member Subscriber Plan / Payer (Ef fective 2022-Present) Name:JOSH SUNG Relation to Subscriber:Self Name:Jaguar, Josh Malcom Payer ID:[id number] Group ID:[id number] Type:Not on file Address: [place] [address] [place] [phone] Advance Directives Documents on File Type Date Recorded 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
== END 2025-08-17 16:15 | disposition home or self-care (01) ==
LOC: HO.HSMS 14:17
PROVIDERS: PCP Internal Medicine; Visit Provider Psychiatry & Neurology Neurology
DX: R20.2 Paresthesia of skin (principal); M79.601 Pain in right arm; M79.602 Pain in left arm; M47.22 Other spondylosis with radiculopathy, cervical region
CPT/HCPCS: 99214

== ENCOUNTER → 2025-08-17 14:16 | Outpatient (BNVA) | payer OTHER, SELFPAY | PROVIDERS: PCP Internal Medicine; Visit Provider Psychiatry & Neurology Neurology | DX: R20.0 Anesthesia of skin (principal); M79.601 Pain in right arm; M79.602 Pain in left arm; M47.22 Other spondylosis with radiculopathy, cervical region; M54.2 Cervicalgia | CPT/HCPCS: 99212 ==

== ENCOUNTER 2025-09-07 13:08 | Outpatient (AMB) | payer OTHER, SELFPAY ==
--- OUTSIDE RECORDS SUMMARY | 2012-09-30 19:00 | XMS_ITS | Continuity of Care Document ---
Author Organization Dermatology [facility] Address [address] [place] [address] Phone Care Team Providers Care Auto Machinist Name Role Phone Ryan Duran MD Unavailable Unavailable Procedures Procedure Date [employer] Sales tax [employer] Advance Directives Directive Yes / No Effective Date File Name No Information Encounters Encounter Description Practice Location Reason(s) For Visit Diagnoses Date Provider Providers Copied on Encounter Dermatology [facility], [address] [place] [address], [address] [place] [address], tel:[phone] [facility] No Information Renee Davis. [address] [place] [address], [address] [place] [address] , . tel: [phone] Dermatology [facility], [address] [place] [address], [id number], tel:[phone] [facility] Location No Information Renee Davis. [address] [place] [address], [id number] , . tel: [phone] Dermatology [facility], [address] [place] [address], [address] [place] [address], tel:[phone] [facility] No Information Renee Davis. [address] [place] [address], [place], [place], [id number] , . tel: [phone] Family History Family Member Type Diagnosis Age At Onset No Information Payers Payer name Insurance type Covered alliance party ID Authoriza tion(s) No Information Social History Type Description Quantity Date Captured Comments Sex Female Smoking Status No Information Chief Complaint And Reason For Visit No Information Reason For Referral Reason For Referral No Information History Of Present Illness Encounter Date Complaint History Of Prese nt Illness No Information Functional Status Date Functional Assessmen t No Information Instructions Date Instruction Additional Infor mation No Information Assessments Type Assessment Date No Information Patient Care Teams Name Effective Dates (start - stop) Status Members No Information
--- OUTSIDE RECORDS SUMMARY | 2012-09-30 19:00 | XMS_ITS | Continuity of Care Document ---
Author Organization Dermatology [facility] Address [address] [place] [address] Phone Care Team Providers Care Grading Machine Feeder Name Role Phone Ryan Duran MD Unavailable Unavailable Procedures Procedure Date [employer] Sales tax [employer] Advance Directives Directive Yes / No Effective Date File Name No Information Encounters Encounter Description Practice Location Reason(s) For Visit Diagnoses Date Provider Providers Copied on Encounter Dermatology [facility], [address] [place] [address], [address] [place] [address], tel:[phone] [facility] No Information Renee Davis. [address] [place] [address], [address] [place] [address] , . tel: [phone] Dermatology [facility], [address] [place] [address], [id number], tel:[phone] [facility] Location No Information Renee Davis. [address] [place] [address], [id number] , . tel: [phone] Dermatology [facility], [address] [place] [address], [address] [place] [address], tel:[phone] [facility] No Information Renee Davis. [address] [place] [address], [place], [place], [id number] , . tel: [phone] Family History Family Member Type Diagnosis Age At Onset No Information Payers Payer name Insurance type Covered republican ID Authoriza tion(s) No Information Social History [...]
--- OUTSIDE RECORDS SUMMARY | 2012-09-30 19:00 | XMS_ITS | Continuity of Care Document ---
Author Organization Dermatology [facility] Address [address] [place] [address] Phone Care Team Providers Care Ramp And Cargo Supervisor Name Role Phone Ryan Duran MD Unavailable Unavailable Procedures Procedure Date [employer] Sales tax [employer] Advance Directives Directive Yes / No Effective Date File Name No Information Encounters Encounter Description Practice Location Reason(s) For Visit Diagnoses Date Provider Providers Copied on Encounter Dermatology [facility], [address] [place] [address], [address] [place] [address], tel:[phone] [facility] No Information Renee Davis. [address] [place] [address], [address] [place] [address] , . tel: [phone] Dermatology [facility], [address] [place] [address], [id number], tel:[phone] [facility] Location No Information Renee Davis. [address] [place] [address], [id number] , . tel: [phone] Dermatology [facility], [address] [place] [address], [address] [place] [address], tel:[phone] [facility] No Information Renee Davis. [address] [place] [address], [place], [place], [id number] , . tel: [phone] Family History Family Member Type Diagnosis Age At Onset No Information Payers Payer name Insurance type Covered democrat ID Authoriza tion(s) No Information Social History [...]
--- OUTSIDE RECORDS SUMMARY | 2012-09-30 19:00 | XMS_ITS | Continuity of Care Document ---
Author Organization Dermatology [facility] Address [address] [place] [address] Phone Care Team Providers Care Flatwork Tier Name Role Phone Ryan Duran MD Unavailable Unavailable Procedures Procedure Date [employer] Sales tax [employer] Advance Directives Directive Yes / No Effective Date File Name No Information Encounters Encounter Description Practice Location Reason(s) For Visit Diagnoses Date Provider Providers Copied on Encounter Dermatology [facility], [address] [place] [address], [address] [place] [address], tel:[phone] [facility] No Information Renee Davis. [address] [place] [address], [address] [place] [address] , . tel: [phone] Dermatology [facility], [address] [place] [address], [id number], tel:[phone] [facility] Location No Information Renee Davis. [address] [place] [address], [id number] , . tel: [phone] Dermatology [facility], [address] [place] [address], [address] [place] [address], tel:[phone] [facility] No Information Renee Davis. [address] [place] [address], [place], [place], [id number] , . tel: [phone] Family History Family Member Type Diagnosis Age [...]
--- OUTSIDE RECORDS SUMMARY | 2012-09-30 19:00 | XMS_ITS | Continuity of Care Document ---
Author Organization Dermatology [facility] Address [address] [place] [address] Phone Care Team Providers Care Informatics Coordinator Name Role Phone Ryan Duran MD Unavailable Unavailable Procedures Procedure Date [employer] Sales tax [employer] Advance Directives Directive Yes / No Effective Date File Name No Information Encounters Encounter Description Practice Location Reason(s) For Visit Diagnoses Date Provider Providers Copied on Encounter Dermatology [facility], [address] [place] [address], [address] [place] [address], [phone] [facility] No Information Renee Davis. [address] [place] [address], [address] [place] [address] , . tel: [phone] Dermatology [facility], [address] [place] [address], [id number], tel:[phone] [facility] Location No Information Renee Davis. [address] [place] [address], [id number] , . tel: [phone] Dermatology [facility], [address] [place] [address], [address] [place] [address], tel:[phone] [facility] No Information Renee Davis. [address] [place] [address], [place], [place], [id number] , . tel: [phone] Family History Family Member Type Diagnosis Age [...]
--- OUTSIDE RECORDS SUMMARY | 2012-09-30 19:00 | XMS_ITS | Continuity of Care Document ---
Author Organization Dermatology [facility] Address [address] [place] [address] Phone Care Team Providers Care Fast Food Shift Supervisor Name Role Phone Ryan Duran MD Unavailable Unavailable Procedures Procedure Date [employer] Sales tax [employer] Advance Directives Directive Yes / No Effective Date File Name No Information Encounters Encounter Description Practice Location Reason(s) For Visit Diagnoses Date Provider Providers Copied on Encounter Dermatology [facility], [address] [place] [address], [address] [place] [address], [phone] [facility] No Information Renee Davis. [address] [place] [address], [address] [place] [address] , . tel: [phone] Dermatology [facility], [address] [place] [address], [id number], tel:[phone] [facility] Location No Information Renee Davis. [address] [place] [address], [id number] , . tel: [phone] Dermatology [facility], [address] [place] [address], [address] [place] [address], tel:[phone] [facility] No Information Renee Davis. [address] [place] [address], [place], [place], [id number] , . tel: [phone] Family History Family Member Type Diagnosis Age At Onset No Information Payers Payer name Insurance type Covered constitution party ID Authoriza tion(s) No Information Social [...]
--- OUTSIDE RECORDS SUMMARY | 2012-09-30 19:00 | XMS_ITS | Continuity of Care Document ---
Author Organization Dermatology [facility] Address [address] [place] [address] Phone Care Team Providers Care Rubber Flap Tuber Machine Operator Name Role Phone Ryan Duran MD Unavailable Unavailable Procedures Procedure Date [employer] Sales tax [employer] Advance Directives Directive Yes / No Effective Date File Name No Information Encounters Encounter Description Practice Location Reason(s) For Visit Diagnoses Date Provider Providers Copied on Encounter Dermatology [facility], [address] [place] [address], [address] [place] [address], tel:[phone] [facility] No Information Renee Davis. [address] [place] [address], [address] [place] [address] , . tel: [phone] Dermatology [facility], [address] [place] [address], [id number], [phone] [facility] Location No Information Renee Davis. [address] [place] [address], [id number] , . tel: [phone] Dermatology [facility], [address] [place] [address], [address] [place] [address], tel:[phone] [facility] No Information Renee Davis. [address] [place] [address], [place], [place], [id number] , . tel: [phone] Family History Family Member Type Diagnosis Age [...]
--- OUTSIDE RECORDS SUMMARY | 2025-09-03 14:45 | XMS_ITS | Encounter Summary ---
Author Organization [facility] Address [address] [place] [address] Care Team Providers Care Telegraph Office Telephone Clerk Name Role Phone Mily Lawrence MD Primary Care Provider Reason for Visit * Reason Comments Follow-up F/U - GANGLION CYST OF TENDON SHEATH OF R HAND Pain F/U - GANGLION CYST OF TENDON SHEATH OF R HAND Encounter Details Date Type Department Care Team (Late st Contact Info) Description 09/03/2025 2:45 PM EST Office Visit Orthopedic Surgery - [place] [address] [facility] [address] [place] [phone] Marci Bernardo PA [address] [facility] [address] [place] [phone] Bilateral hand pain (Primary Dx) Social History Tobacco Use Types [...] as of this encounter Progress Notes * JOHN Sanchez - 09/03/2025 2:45 PM EST CHIEF COMPLAINT: Follow-up and Pain of the Right Hand (F/U - GANGLION CYST OF TENDON SHEATH OF R HAND) had concerns including Follow-up and Pain of the Right Hand (F/U - GANGLION CYST OF TENDON SHEATH OF R HAND). IDENTIFIER: Ange Montesinos is a 60 y.o. old female SUBJECTIVE: Ange Montesinos is here for follow up on 09/03/25 for right hand pain. I saw patient July 20 for right trigger thumb and right ring trigger finger. Symptoms started about a year ago. Treatment has included cortisone injections to both areas on 01/05/2025 and again on 06/23/2025. Injections have helped. She is no longer having any triggering of the right thumb. Mild pain and achiness over long and ring finger metacarpophalangeal joint and A1 pulleys but no triggering. No numbness or tingling. She does ambulate with a cane. She has been seen by myself and Dr. Hamilton in the past for bilateral thumb basal joint arthritis and did have trapeziectomy's bilaterally back in 2021 in 2022. No diabetes. Left hand asymptomatic PAST MEDICAL/SURGICAL HISTORY: Patient Active Problem List Diagnosis Date Noted Status post total bilateral knee replacement 03/24/2025 Rotator cuff syndrome of left shoulder 12/28/2024 Arthritis of right glenohumeral joint 12/28/2024 Nontraumatic incomplete tear of right rotator cuff 12/28/2024 Chronic pain of both shoulders 12/28/2024 S/P lumbar fusion 10/06/2024 Acute bilateral low back pain without sciatica 10/06/2024 Other muscle spasm 10/06/2024 Diarrhea 08/07/2024 Epigastric pain 08/07/2024 Nausea and vomiting 08/07/2024 Neck pain 02/14/2023 Abnormal EKG 07/23/2022 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 01/09/2022 Brachial radiculitis 10/10/2021 Cervical post-laminectomy syndrome 10/10/2021 Degeneration of cervical intervertebral disc 10/10/2021 Displacement of lumbar intervertebral disc without myelopathy 10/10/2021 Lumbosacral radiculitis 10/10/2021 Occipital headache 10/10/2021 Primary osteoarthritis of both first carpometacarpal joints 05/16/2021 Chest pain 05/03/2021 Diastolic hypertension 05/03/2021 Post-thrombotic syndrome 04/05/2019 DVT (deep venous thrombosis) ([facility] V24, [facility] V28) 04/01/2019 Chronic back pain 07/04/2018 Degenerative joint disease of cervical spine 07/04/2018 Urinary incontinence 07/04/2018 Lumbar degenerative disc disease 01/30/2018 Sleep apnea 01/30/2018 Hyperlipidemia 12/07/2017 Breast microcalcification, mammographic 10/21/2017 Essential hypertension 03/14/2017 GERD (gastroesophageal reflux disease) 09/05/2016 Depression with anxiety 01/12/2016 Insomnia 06/09/2015 Vitamin D deficiency 02/15/2015 Past Surgical History: Procedure Laterality Date BACK SURGERY 2007 PROCEDURE:BACK SURGERY;COMMENT:c-spine BACK SURGERY 2018 PROCEDURE:BACK SURGERY;COMMENT:lumbar BREAST BIOPSY 10/08/2013 PROCEDURE: CO BX BREAST NEEDLE CORE W/O IMAGING GUIDANCE SPX; COMMENT: in [place],no evidence of malignancy COLONOSCOPY 2017 PROCEDURE: HISTORICAL COLONOSCOPY HAND SURGERY Bilateral 2021 PROCEDURE:HAND SURGERY;COMMENT:thumb surery with plates and pins HAND SURGERY Bilateral 1989 PROCEDURE: HISTORICAL HAND SURGERY; COMMENT: right tendo repair; left thumb x2; region with pins inplace LUMBAR FUSION N/A 07/16/2024 PROCEDURE:LUMBAR FUSION;COMMENT:Procedure: L3-4 FUSION SPINE LUMBAR - DLIF 1 INTERSPACE; Surgeon: Nathan Hayward MD; [facility]: [facility] Service: Spine; Laterality: N/A; NECK SURGERY 2007 PROCEDURE: HISTORICAL NECK SURGERY; COMMENT: C-spine; arthrodesis OTHER SURGICAL HISTORY 09/2017 PROCEDURE: CO ARTHRD ANT INTERBODY MIN DSC LUMBAR OTHER SURGICAL HISTORY 1997 PROCEDURE: LAPAROSCOPY PROCEDURE NEC; COMMENT: for scar tissue TOTAL KNEE ARTHROPLASTY Bilateral 03/03/2024 PROCEDURE:TOTAL KNEE ARTHROPLASTY;COMMENT:LEFT TKA; RIGHT TKA MARCH 2019 TOTAL KNEE ARTHROPLASTY Right 02/03/2019 PROCEDURE: HISTORICAL TOTAL KNEE REPLACE TUBAL LIGATION 2007 PROCEDURE: HISTORICAL TUBAL LIGATION MEDICATIONS DISCONTINUED/REORDERED: There are no discontinued medications. ACTIVE MEDICATIONS: Current Outpatient Medications on File Prior to Visit Medication Sig Dispense Refill acetaminophen (TYLENOL 8 [...] each day. 90 tablet 2 back brace misc LSO brace. Use when ambulating and for comfort Status post lumbar fusion Length of use: 99 1 each 0 celecoxib (CeleBREX) 200 mg capsule Take 1 capsule (200 mg total) by mouth 2 (two) times a day. 56 capsule 4 cetirizine (ZyrTEC) 10 mg tablet TAKE 1 TABLET BY MOUTH 1 TIME EACH DAY. 28 tablet 2 cholecalciferol (VITAMIN D-3) 50 mcg (2,000 unit) [...] under the skin. hydroCHLOROthiazide 12.5 mg tablet TAKE 1 TABLET BY MOUTH EVERY DAY 28 tablet 5 ketoconazole (NIZORAL) 2 % shampoo USE ONCE DAILY A FACE WASH lisinopriL (PRINIVIL,ZESTRIL) 30 mg tablet TAKE 1 TABLET BY MOUTH 1 TIME EACH DAY. 90 tablet 2 melatonin 3 mg tablet TAKE 1 TABLET BY MOUTH EVERYDAY AT BEDTIME 28 tablet 2 metoprolol tartrate (LOPRESSOR) 50 mg tablet Take 1 tablet (50 mg total) by mouth 2 (two) times a day. 180 tablet 3 multivitamin (MULTIPLE VITAMINS ORAL) Take 1 tablet by mouth 1 (one) time each day. omeprazole (PriLOSEC) [address] capsule TAKE 1 CAPSULE BY MOUTH EVERY DAY 28 capsule 2 onabotulinumtoxinA (Botox) 200 unit injection ondansetron (ZOFRAN) 4 mg tablet Take 1 tablet (4 mg total) by mouth every 8 (eight) hours if needed for nausea. polyethylene glycol (MIRALAX) 17 gram packet Take 17 g by mouth 1 (one) time each day. sertraline (ZOLOFT) 100 mg tablet TAKE 1 TABLET BY MOUTH EVERY DAY 28 tablet 8 thiamine 100 mg tablet Take 1 tablet (100 mg total) by mouth 1 (one) time each day. 210 tablet 1 traMADoL (ULTRAM) 50 mg tablet Take 1 tablet (50 mg total) by mouth every 6 (six) hours if needed for moderate pain or severe pain. traZODone (DESYREL) 50 mg tablet TAKE 1 TABLET BY MOUTH EVERY NIGHT AT BEDTIME. 28 tablet 6 ubrogepant (Ubrelvy) 100 mg tablet Vitamin B-6 250 mg tablet TAKE 1 TABLET BY MOUTH EVERY DAY 84 tablet 1 No current facility-administered medications on file prior to visit. ALLERGIES: Allergies Allergen Reactions Sulfate Ion Hives Adhesive Tape-Silicones Rash Paper tape Sulfa (Sulfonamide Antibiotics) Hives PHYSICAL EXAM: Visit Vitals OB Status Tubal Ligation Smoking Status Never APPEARANCE: Alert and in no acute distress EXTREMITIES: Extremities warm and well perfused without clubbing, cyanosis, or edema. Minimal arthritic changes to the right hand. No obvious swelling. Right thumb full range of motion no triggering. No tenderness over A1 nikhil. She make a full fist.Right long finger no tenderness over A1 nikhil or metacarpophalangeal joint. Full flexion of the right long finger. Mild tenderness still over A1 nikhil of right. No felicia triggering. There is a small flexor tendon sheath cyst felt at right ring finger. Full range of motion of her wrist with no pain. On the left no arthritic changes. She make full fist on the left. No triggering of the fingers. LABS/IMAGING: Lab Results Component Value Date HGBA1C 5.3 06/09/2025 Xrays reviewed: None IMPRESSION: 1. Bilateral hand pain PLAN: The details of the visit were reviewed with the patient. Pertinent history, and objective findings were reviewed, along with the diagnoses: Right trigger thumb and right ring trigger finger improved after cortisone injections. Minimal pain in right hand, sometimes mild achiness. Exam overall benigntoday. Had discussed at last visit getting updated x-rays of bilateral hands but decided to hold off today due to minimal symptoms. No further treatment or cortisone injections at this time. Again discussed that there is recurrence of triggering repeat cortisone injections versus surgery. She will call for them if needed. Ange Montesinos acknowledges understanding of the above plan and agrees to follow recommendations and/or take medications as prescribed. Orders Placed This Encounter Procedures XR Hand 3+ Views bilat @ELECSIG@ documented in this encounter Plan of Treatment Upcoming Encounters Date Type Department Care Team (Late st Contact Info) Description 12/14/2025 2:30 PM EST Office Visit Internal Medicine - [place] [address] [facility] [address] [place] [address] Mily Lawrence MD [address] [place] [phone] documented as of this encounter Visit Diagnoses Diagnosis Bilateral hand pain- Primary documented in this encounter Orders Imaging Orders Without Results Count Last Order ed Date First Ordered Date XR HAND 3+ VIEWS BILAT 1 09/03/2025 documented in this encounter Additional Health Concerns Assessment Noted Time PHQ-9 Depression Total Score: 0 06/07/20 25 3:34 PM EDT documented as of this encounter Care Teams Telegraph Office Telephone Clerk Relationship Specialty Start Date End Date Mily Lawrence MD [address] [facility] [address] [place] [phone] PCP - General Internal Medicine 09/24/16 documented as of this encounter
--- NOTE | 2025-09-07 13:10 | MHC.OFFVIS ---
Vital Signs 09/07/25 13:11 Height 5 ft 4 in BP 160/108 H Blood Pressure Location Lt brachial Position Sitting Pulse 85 Pulse Source Pulse Oximeter Pulse Oximetry (%) 98 Oxygen Delivery Method Room Air Intake Visit Reasons: Botox Intake Note: Botox 100 B+B Inking Machine Tender Required: No Accompanied by: Self / Same As Patient Allergies Sulfa (Sulfonamide Antibiotics) Allergy (Mild, Verified 09/07/25 13:11) Hives adhesive tape Adverse Reaction (Mild, Verified 09/07/25 13:11) Rash Medication List - Last Reconciled 09/07/25 by Florina Perla MD acetaminophen 500 mg PO Q6H PRN acetaminophen ER (Tylenol 8 Hour) 650 mg PO Q12H atorvastatin 10 mg PO DAILY celecoxib 0 mg PO cetirizine (Zyrtec) 10 mg PO DAILY PRN cholecalciferol (vitamin D3) (Vitamin D3) 50 mcg PO DAILY cyclobenzaprine 10 mg PO BID 30 days diclofenac sodium 1% 4 grams topical BID gabapentin 300 mg PO TID 30 days galcanezumab-gnlm (Emgality Pen) 240 mg (2 mL) subcut ONCE 30 days hydrochlorothiazide 25 mg PO DAILY ketoconazole 2% topical lisinopril 30 mg PO DAILY melatonin 6 mg (2 x 3 mg) PO DAILY 90 days metoprolol tartrate 50 mg PO BID onabotulinumtoxinA (Botox) 100 units IM ONCE 12 weeks ondansetron HCl 4 mg PO Q8H PRN polyethylene glycol 3350 17 grams PO DAILY pyridoxine (vitamin B6) (Vitamin B-6) 250 mg PO DAILY sertraline 100 mg PO DAILY thiamine HCl (vitamin B1) mg PO tramadol 50 mg PO QID PRN trazodone 50 mg PO BEDTIME ubrogepant (Ubrelvy) 50 - 100 mg (0.5 - 1 x 100 mg) PO ONCE PRN 30 days HPI Comments Details: 59y/o female comes for treatment of her left hemifacial spasm with botox Effectiveness of last two botox: Change in intensity of spasms- decreased Change in frequency of spasms- decreased Changes in quality of life- improved Have at least three months elapsed since last treatment (Last botox date - frequency of injections)?- 4 months ago Botulinum toxin type A 100 units Lot no [id number] X 1 Exp 08/2027 was diluted with 1 cc of normal saline at a concentration of 5 units in 0.1 cc. Side effects were discussed and an informed consent was obtained. Muscles injected left Lateral canthus - 10 units each left Lateral Lower eyelid-10units each left zygomaticus 10 units left Nasolabial fold 10 units each Venkata temporlais 20 units each Total used 80units discarded 20 units PFSH Medical History Cervical spondylosis with radiculopathy Radiculopathy Cervical radiculopathy at C7 Hirsutism Vitamin D deficiency Insomnia Depression with anxiety GERD (gastroesophageal reflux disease) HLD (hyperlipidemia) Obstructive sleep apnea Urinary incontinence Post-thrombotic syndrome Congestive heart failure (CHF) Degenerative disc disease, cervical Osteoarthritis Lumbosacral radiculitis Cervical post-laminectomy syndrome Brachial radiculitis Surgical History Hx of knee surgery H/O breast biopsy History of lumbar spinal fusion S/P laparoscopic surgery Hx of tubal ligation History of total knee replacement (TKR) Hx of neck surgery Hx of hand surgery Hx of colonoscopy Family History Mother Breast CA DM (diabetes mellitus) HTN (hypertension) Arthritis ESRD (end stage renal disease) Father Arthritis ESRD (end stage renal disease) Maternal Aunt Breast CA Social History Household Members: None Alcohol intake: current Alcohol intake frequency: a few times a week Patient Tobacco Use Status: Never used Tobacco Substance Use Type: Marijuana Physical Exam Vital Signs: Last Vital Signs Pulse 85 09/07/25 13:11 BP 160/108 H 09/07/25 13:11 Pulse Ox 98 09/07/25 13:11 Oxygen Delivery Method Room Air 09/07/25 13:11 Const Other: left hemifacial spasm General: cooperative and no acute distress Orientation/consciousness: patient oriented x3 Eyes Pupils: Equal, round and reactive pupils present Resp Effort & Inspection: normal respiratory effort and able to speak in complete sentences Neuro Other: Left hemifascial spasm/droop General: patient oriented x3 Cranial nerves: Yes Facial sensation intact/muscles of mastication intact, Yes Equal, round and reactive pupils present, Yes Nystagmus not present and Yes Midline tongue present Cognition (Neuro): normal cognition Gait exam (Neuro): Antalgic gait present Motor exam (neuro): 5/5 motor strength present throughout Deep tendon reflexes (DTR's): Right triceps reflex intensity grade: 1+, Left triceps reflex intensity grade: 1+, Rt Biceps (C5, C6): 1+, Left biceps reflex intensity grade: 1+, Right brachioradialis reflex intensity grade: 1+, Left brachioradialis reflex intensity grade: 1+, Right patellar reflex intensity grade: 1+ and Left patellar reflex intensity grade: 1+ Coordination: [id number] test normal Psych Appearance: grossly normal Mental Status: mental status grossly normal Speech and movement: Normal speech and movement present Affect: normal affect Attitude: cooperative Office Procedures Botulinum toxin Injection 49478 - Facial Nerve Procedure code (CPT) selection complete Office Meds onabotulinumtoxinA 100 unit solution for injection Performing Provider: Florina Perla MD Performing Location: [facility] [place] [facility] Administered by: Florina Perla MD on 09/07/25 13:44 Dose Route Admin Location Dispensed Lot Number Expiration Date [facility] Folding Machine Setter 80 unit subcut 100 units [id number] [employer]/BOTOX Total Dispensed Waste 100 units 20 % Comments: see HPI Assessment & Plan Assessment & Plan (1) Hemifacial spasm of left side of face: Code(s): G51.32 - Clonic hemifacial spasm, left Category: Medical Plan Patient tolerated the procedure well she will call with any side effects Orders: Orders AMB Botulinum toxin Injection Today G51.32 - Clonic hemifacial spasm, left Coding Level of Care Code Est Pt Level 1 (04248) Diagnoses Hemifacial spasm of left side of face G51.32 CPT Codes Botox Injection - Botox 2: 32113 - Facial Nerve ([id number])
[2025-09-07 13:11] VITALS: BP 160/108; PULSE 85; O2SAT 98
--- OUTSIDE RECORDS SUMMARY | 2025-09-08 05:02 | XMS_ITS | Clinical Summary ---
Author Organization [facility] Address [address] [place] [address] Care Team Providers Care Marketing Manager Health Communications Name Role Phone Mily Lawrence MD Primary Care Provider [phone] Allergies Active Allergy Reactions Criticality Noted Date [...] this topic Medical Devices Implanted Type Area Hand Compositor Device Identifier Shelf Expiration Date Model / Serial / Lot Putty Vesuvius 100 5ml Stry-K2m [id number] - [id number] Implanted:Qty: 1 on 07/16/2024 by Nathan Hayward MD at [facility] Lateral: Spine Lumbar LAXMI SPINE 02/17/2027 [id number] / [id number] / Bone Graft Spine Infus Xsm Medt-Sofa [id number] - [id number] Implanted:Qty: 1 on 07/16/2024 by Nathan Hayward MD at [facility] Lateral: Spine Lumbar [employer] SOFAMOR DANEK 11/20/2025 [id number] / / [id number] [place] Interbody System Implanted:Qty: 1 on 07/16/2024 by Nathan Hayward MD at [facility] Lateral: Spine Lumbar LAXMI - MEDICAL 10/30/2028 [id number] / / [id number] Plate [facility] 2hl 18mm Stry-K2m [id number] - [id number] Implanted:Qty: 1 on 07/16/2024 by Nathan Hayward MD at [facility] Lateral: Spine Lumbar LAXMI SPINE [id number] / / 5.0x40mm Screw Implanted:Qty: 2 on 07/16/2024 by Nathan Hayward MD at [facility] Lateral: Spine Lumbar LAXMI - MEDICAL [id number] / / Plate Assembly Screw Implanted:Qty: 1 on 07/16/2024 by Nathan Hayward MD at [facility] Lateral: Spine Lumbar LAXMI - MEDICAL [id number] / / Advance Directives For more information, please contact: [phone] Latest Code Status on File Code Status [...] way: discussion with patient . Care Teams Marketing Manager Health Communications Relationship Specialty Start Date End Date Mily Lawrence MD [address] [place] [address] [address] [place] [address] PCP - General Internal Medicine 06/12/17
--- OUTSIDE RECORDS SUMMARY | 2025-09-08 05:02 | XMS_ITS | Data Portability ---
Author Organization [facility] Address [address] [facility] [address] [place] [address] Care Team Providers Care Scissors Grinder Name Role Phone MICHAEL HOOKER Primary Care Provider [facility] ([facility]) OTHER Assessment Encounter Date Assessment Date [...] She would like a referral to Dr. Haywrad in [place], [place] I recommend physical therapy with Anderson Murcia at the in [place], [place]. She will follow up in six [...] booked for the same. 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 [...] booked for the same. 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 Insurance approval needed. I have encouraged tostart physical therapy and discussed the importance of core strengthening. She si on Voy[employer] and will call back after consulting with [...] surgeon referral 2022 023 HAYDEN Hayward MD, [address] [place] [address] , [place], [address], 05:00:52 Procedures None recorded. Surgeries None recorded. Imaging None recorded. Medication Orders None recorded. Patient TargetsNo targets recorded. Patient Instructions Encounter Date Encounter Id Patient Instructions Last Modified By Organization Details Last Modified Time 01/24/2023 [id number] She was advised against bed rest lasting longer than four days and to continue activities as tolerated. [email or web address] Not available 01/30/2023 16:21:29 04/01/2023 [id number] physical therapy* HAYDEN Not available 10/13/2023 05:00:58 She was advised against bed rest lasting longer than four days and to continue activities as tolerated. [email or web address] Not available 04/05/2023 11:18:39 12/02/2023 [id number] She was advised against bed rest lasting longer than four days and to continue activities as tolerated. [email or web address] Not available 12/02/2023 14:52:52 03/27/2024 [id number] She was advised against bed rest lasting [...] ney spine No observ ation record ed. [facility] [address] [place] [address], [id number], 01/24/2023 13:46:21 02/09/20 23 02/06/2023 MRI, cervi ney spine , w/o contr ast No observ ation record ed. [facility] [address] [place] [address], [id number], 02/11/2023 15:20:32 Result Notes None recorded. 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 Active Evelio grady MD [address] [facility] , [address], [place], [address], [place] [facility] 6 08:51:25 Displacement of lumbar intervertebral disc without myelopathy 63980846 Active Evelio grady MD [address] , [address], [place], [address], [place] [facility] 6 08:55:36 Lumbosacral radiculitis 71755139 Lauryn grady MD [address] , [address], [place], [address], [place] [facility] 6 08:55:36 Degeneration of cervical intervertebral disc 71738405 Lauryn grady MD [address] , [address], [facility] [place], [address], [place] [facility] 6 08:51:25 Cervical post-laminecto my syndrome 530632330 Active Evelio grady MD [address] [facility] , [address], [facility] [place], [address], [place] [facility] 6 08:51:25 Occipital headache 118283 Active Evelio grady MD [address] [facility] , [address], [facility] [place], [address], [place] [facility] 6 08:51:25 Problem Notes None recorded. Procedures Surgical History Date Name Laterality Status Provider Name and Address Organization Details Recorded Time 01/09/20 24 Lumbar Epidural steroid injection under fluoroscopic guidance completed Evelio Smith MD [address] [facility] , [address], [place], [address], [place] [facility] 01/09/2024 11:18:14 12/26/19 23 Lumbar Epidural steroid injection under fluoroscopic guidance completed Evelio Smith MD [address] [facility] , [address], [place], [address], [place] [facility] 12/25/2022 13:26:44 07/08/20 19 Greater Occipital Nerve Block(s) completed Evelio Smith MD [address] [facility] , [address], [place], [address], [place] [facility] 07/09/2019 14:01:34 01/07/20 19 Cervical Epidural Steroid injection under fluroscopic guidance completed Evelio Smith MD [address] [facility] , [address], [place], [address], [place] [facility] 01/07/2019 10:50:11 04/24/20 17 Lumbar Epidural steroid injection under fluoroscopic guidance completed Evelio Smith MD [address] [facility] , [address], [place], [address], [place] [facility] 05/02/2017 10:32:28 10/21/19 17 Lumbar Fusion completed Elsa Lainez [place] [facility] 12/18/2018 13:40:37 10/02/20 16 Lumbar Epidural steroid injection under fluoroscopic guidance completed Evelio Smith MD [address] , [address], [place], [address], [place] [facility] 10/02/2016 14:32:08 04/04/20 16 Lumbar Epidural steroid injection under fluoroscopic guidance completed Evelio Smith MD [address] , [address], [place], [address], [place] [facility] 04/04/2016 11:07:10 [...] Name and Address Organization Details Recorded Time 48754 Substance with sulfonami de structure and antibacte rial mechanism of action (substanc e) medicatio n hives Not available Not available 02/27/2016 40593 8003 SNOMED Elsa paris [facility] [...] Available Not Available Not Available Flucelvax Quad [id number] (PF) 60 mcg (15 mcg x 4)/0.5 [...] /min 96 % 96 % 34.3 kg/m2 83585.4 7 g 150/90 mm[Hg] Deana robb [facility] 4 14:28:07 Date Recorded Body height Heart rate Oxygen saturation Oxygen saturation in Arterial blood by Pulse oximetry Pain severity - 0-10 verbal numeric rating [Score] - Reported Systolic And Diastolic Provider Name and Address Organization Details Last Updated DateTime 4 162.56 cm 102 /min 98 % 98 % 10 138/95 mm[Hg] Irish Shields [facility] Pain Management 4 10:08:26 Date Recorded Heart rate Oxygen saturation Oxygen saturation in Arterial blood by Pulse oximetry Systolic And Diastolic Provider Name and Address Organization Details Last Updated DateTime 01/24/2023 88 /min 98 % 98 % 107/77 mm[Hg] Corina Saldivar [facility] Pain Management 3 13:18:03 Date Recorded Body height Heart rate Oxygen saturation Oxygen saturation in Arterial blood by Pulse oximetry Body mass index (BMI) Body weight Pain severity - 0-10 verbal numeric rating [Score] - Reported Systolic And Diastolic Provider Name and Address Organization Details Last Updated DateTime 4 162.56 cm 101 /min 97 % 97 % 34.3 kg/m2 74301.4 7 g 10 144/91 mm[Hg] Evelio grady MD [address] , [address], [place], [address], [facility] Pain Management 4 10:28:41 Date Recorded Body height Heart rate Oxygen saturation Oxygen saturation in Arterial blood by Pulse oximetry Pain severity - 0-10 verbal numeric rating [Score] - Reported Body mass index (BMI) Body weight Systolic And Diastolic Provider Name and Address Organization Details Last Updated DateTime 3 162.56 cm 89 /min 98 % 98 % 8 35.2 kg/m2 65972.4 4 g 165/77 mm[Hg] Mary Dicksonue [facility] Pain Management 3 13:23:02 Social History Question Answer Notes LastModified by Indigoz Details LastModified Time Tobacco Smoking Status Never Smoker Not Available [facility] 08/05/2020 03:16:12 Which Illicit Or Recreational Drugs Have You Used? No [id number] Information not available 08/05/2020 Education [employer] Information not available 02/27/2016 Live Alone Or With Others? [email or web address] Information not available 02/27/2016 Marital Status [facility] Informatio n not available 02/27/2016 What Was The Date Of Your Most Recent Tobacco Screening? 01/31/2019 [id number] Information not available 08/05/2020 Sex: Unknown Functional Status Question Answer Note LastModified by Indigoz Details LastModified Time What is your level of alcohol consumption? Moderate [id number] Information not available 08/05/2020 Are you currently [...] ICD10 Code Diagnosis IMO Codes Diagnosis Note [id number] Evelio Smith MD PAIN OFFICE [address] [facility] [place] [address] 02/27/2016 14:19:46 02/28/2016 08:47:29 Displacement of lumbar intervertebral disc without myelopathy 83048130 M51.26 Lumbosacra l radiculitis 88353706 M54.17 Brachial radiculitis 278 05885 M54.12 Cervical post-laminectomy syndrome 803280106 M96.1 Degenerati on of cervical intervertebral disc 98347610 M50.30 Occipital headache 84754 7 R51 06808 Evelio Smith MD [facility] [address] [place] [address] 03/20/2016 08:42:32 03/20/2016 10:30:41 Displacement of lumbar intervertebral disc without myelopathy 02547496 M51.26 Lumbosacra l radiculitis 75087267 M54.17 52924 Evelio Smith MD PAIN OFFICE [address] [place] [address] 04/04/2016 10:15:22 04/04/2016 11:15:33 Displacement of lumbar intervertebral disc without myelopathy 67589463 M51.26 Lumbosacra l radiculitis 56796894 M54.17 03193 Evelio Smith MD [facility] PA[facility] [address] [place] [address] 05/10/2016 11:47:50 05/15/2016 08:55:57 Displacement of lumbar intervertebral disc without myelopathy 10279695 M51.26 Lumbosacra l radiculitis 08200390 M54.17 38168 Evelio Smith MD PAIN OFFICE [address] [place] [address] 09/03/2016 10:14:59 09/20/2016 08:51:29 Lumbosacral radiculitis 46915814 M54.17 Displaceme nt of lumbar intervertebral disc without myelopathy 75700133 M51.26 75494 Evelio Smith MD PAIN OFFICE [address] [place] [address] 10/02/2016 13:29:26 10/03/2016 14:29:14 Displacement of lumbar intervertebral disc without myelopathy 48952202 M51.26 Lumbosacra l radiculitis 34368317 M54.17 58685 Evelio Smith MD PAIN OFFICE [address] [place] [address] 03/27/2017 13:22:06 03/28/2017 16:32:03 Cervical radiculopathy 07756846 M54.12 Degenerati on of cervical intervertebral disc 40014807 M50.30 Muscle pain 14085958 M79 .1 Displaceme nt of lumbar intervertebral disc without myelopathy 90018200 M51.26 Lumbosacra l radiculitis 57563013 M54.17 55835 Evelio Smith MD PAIN OFFICE [address] [place] [address] 04/24/2017 13:30:47 05/02/2017 13:43:27 Cervical post-laminectomy syndrome 139786060 M96.1 Cervical radiculopathy 21722937 M54.12 Displaceme nt of lumbar intervertebral disc without myelopathy 59375587 M51.26 Lumbosacra l radiculitis 44127624 M54.17 84183 Evelio Smith MD PAIN OFFICE [address] [place] [address] 05/16/2017 11:40:03 05/17/2017 11:19:26 Brachial radiculitis 72999945 M54.12 Degenerati on of cervical intervertebral disc 71005588 M50.30 Cervical post-laminectomy syndrome 555422662 M96.1 Occipital headache 03602 7 R51 36600 Evelio Smith MD PAIN OFFICE [address] [place] [address] 12/18/2018 13:31:38 12/18/2018 16:14:01 Brachial radiculitis 16105943 M54.12 Degenerati on of cervical intervertebral disc 67214826 M50.30 Cervical post-laminectomy syndrome 194374988 M96.1 Occipital headache 32875 7 R51 55913 Evelio Smith MD PAIN OFFICE [address] [place] [address] 01/06/2019 08:42:42 01/07/2019 10:53:06 Brachial radiculitis 77189414 M54.12 Degenerati on of cervical intervertebral disc 56675458 M50.30 Cervical post-laminectomy syndrome 664099296 M96.1 Occipital headache 82323 7 R51 86836 Evelio Smith MD PAIN OFFICE [address] [facility] [place] [address] 01/28/2019 14:04:46 01/31/2019 10:24:31 Brachial radiculitis 35817364 M54.12 Degenerati on of cervical intervertebral disc 73514065 M50.30 Cervical post-laminectomy syndrome 715346615 M96.1 Occipital headache 43924 7 R51 99565 Evelio Smith MD PAIN OFFICE [address] [facility] [place] [address] 06/09/2019 14:32:10 06/26/2019 15:58:13 Occipital headache 523696 R51 Degenerati on of cervical intervertebral disc 34985063 M50.30 Cervical post-laminectomy syndrome 611045238 M96.1 Brachial radiculitis 278 40095 M54.12 24403 Evelio Smith MD PAIN OFFICE [address] [facility] [place] [address] 07/08/2019 15:29:45 07/09/2019 14:03:49 Occipital headache 999015 R51 Cervical post-laminectomy syndrome 292850969 M96.1 Degenerati on of cervical intervertebral disc 80784079 M50.30 Brachial radiculitis 278 25545 M54.12 81973 Evelio Smith MD [facility] PAIN [facility] [address] [facility] [place] [address] 08/24/2019 13:24:13 08/25/2019 11:25:36 Occipital headache 952098 R51 Degenerati on of cervical intervertebral disc 29144579 M50.30 Cervical post-laminectomy syndrome 134216100 M96.1 Brachial radiculitis 278 50743 M54.12 94406 Evelio Smith MD [facility] PA[facility] [address] [place] [address] 03/07/2020 13:03:14 03/07/2020 14:34:46 Occipital headache 387551 R51 Degenerati on of cervical intervertebral disc 35072598 M50.30 Cervical post-laminectomy syndrome 439487170 M96.1 Brachial radiculitis 278 73600 M54.12 97798 Evelio Smith MD [facility] PAIN OFFICE [address] [place] [address] 11/23/2021 13:01:22 11/23/2021 13:27:11 Displacement of lumbar intervertebral disc without myelopathy 04718381 M51.26 Lumbosacra l radiculitis 87503460 M54.17 Brachial radiculitis 278 37542 M54.12 Cervical post-laminectomy syndrome 605099724 M96.1 Degenerati on of cervical intervertebral disc 39651985 M50.30 Occipital headache 58441 7 R51.9 69749 Evelio Smith MD PAIN OFFICE [address] [place] [address] 09/12/2022 08:14:50 09/12/2022 15:42:09 Displacement of lumbar intervertebral disc without myelopathy 14671436 M51.26 Lumbosacra l radiculitis 71394866 M54.17 Brachial radiculitis 278 31543 M54.12 Cervical post-laminectomy syndrome 624256033 M96.1 Degenerati on of cervical intervertebral disc 84769692 M50.30 Occipital headache 93048 7 R51.9 96150 Evelio Smith MD [facility] PA[facility] [address] [place] [address] 12/06/2022 14:08:50 12/13/2022 14:02:45 Displacement of lumbar intervertebral disc without myelopathy 79175291 M51.26 Lumbosacra l radiculitis 49760669 M54.17 Brachial radiculitis 278 [address]7849 M54.12 Cervical post-laminectomy syndrome 768497159 M96.1 Degenerati on of cervical intervertebral disc 93822021 M50.30 Occipital headache 98492 7 R51.9 33773 Evelio Smith MD [facility] PA[facility] [address] [place] [address] 12/25/2022 11:32:27 12/25/2022 13:59:32 Displacement of lumbar intervertebral disc without myelopathy 37352498 M51.26 Lumbosacra l radiculitis 36323505 M54.17 Brachial radiculitis 278 17131 M54.12 Cervical post-laminectomy syndrome 072012971 M96.1 Degenerati on of cervical intervertebral disc 28917464 M50.30 Occipital headache 00250 7 R51.9 69234 Evelio Smith MD [facility] PAIN OFF[facility] [address] [facility] [place] [address] 01/24/2023 13:09:55 01/31/2023 14:49:17 Brachial radiculitis 06750139 M54.12 Degenerati on of cervical intervertebral disc 18758323 M50.30 Cervical post-laminectomy syndrome 873355155 M96.1 Occipital headache 30830 7 R51.9 05653 Evelio Smith MD [facility] PAIN [facility] [address] [place] [address] 04/01/2023 13:14:13 04/05/2023 12:19:21 Lumbosacral radiculitis 88385753 M54.17 Brachial radiculitis 278 [address]7531 M54.12 Degenerati on of cervical intervertebral disc 53775370 M50.30 Cervical post-laminectomy syndrome 743321774 M96.1 Occipital headache 39081 7 R51.9 93867 Evelio Smith MD [facility] PA[facility] [address] [place] [address] 12/02/2023 14:06:57 12/02/2023 14:57:45 Lumbosacral radiculitis 69286731 M54.17 Displaceme nt of lumbar intervertebral disc without myelopathy 06596987 M51.26 Brachial radiculitis 278 58409 M54.12 Cervical post-laminectomy syndrome 503994787 M96.1 Degenerati on of cervical intervertebral disc 40420996 M50.30 Occipital headache 68040 7 R51.9 04779 Evelio Smith MD [facility] PAIN OFFICE [address] [place] [address] 01/09/2024 10:01:40 01/09/2024 15:01:59 Displacement of lumbar intervertebral disc without myelopathy 47970669 M51.26 Lumbosacra l radiculitis 61620942 M54.17 Brachial radiculitis 278 14919 M54.12 Cervical post-laminectomy syndrome 560871522 M96.1 Degenerati on of cervical intervertebral disc 12856540 M50.30 Occipital headache 98107 7 R51.9 72549 Evelio Smith MD [facility] PAIN OFFICE [address] [place] [address] 03/27/2024 10:21:43 03/31/2024 16:07:49 Displacement of lumbar intervertebral disc without myelopathy 86832006 M51.26 Lumbosacra l radiculitis 42433939 M54.17 Brachial radiculitis 278 29332 M54.12 Cervical post-laminectomy syndrome 616132523 M96.1 Degenerati on of cervical intervertebral disc 19825523 M50.30 Occipital headache 73929 7 R51.9 Health Concerns Section Related Observation LastModified by Organization Detai ls LastModified Time None Recorded Concern Status LastModified by Organization Details LastModified Time None Recorded Advance Directives Directive None Recorded Payers Insurance Date Sequence Insurance Name Policy Number Policy Mojica Covered Member ID Mojica Member ID Guarantor Name 04/01/2024 1 [employer] (MEDICARE REPLACEMENT PPO) Angemajo Montesinos [id number] 04/01/2024 1 [facility]CTORC[facility] TYPE I (HMO) Angemajo Montesinos [id number] 04/01/2024 1 [employer] (MEDICARE REPLACEMENT PPO) Ange Jaguar [id number] 04/01/2024 1 [facility] HEALTH INSUR[facility] - BLACKFEET PLUS (MEDICARE REPLACEMENT PPO) Angemajo Richon [id number] 04/01/2024 2 [facility] CLARITY (O) Ange Jaguar [id number] 04/01/2024 1 [facility] CLARITY (O) [id number] Ange Montesinos [id number] 04/01/[address] [facility] (MEDICAID REPLACEMENT - HMO) Ange Montesinos [id number] 04/01/2024 1 [facility] PLAN - [facility] (MEDICAID REPLACEMENT - HMO) SHARYN Montesinos [id number] 04/01/2024 2 [facility] - DOS PRIOR TO 2023 (MEDICARE REPLACEMENT/ADV ANTAGE - PPO) Ange Montesinos [id number] 04/01/2024 1 [facility] - DOS ON OR AFTER 2023 - [facility] (MEDICARE REPLACEMENT/ADV ANTAGE - HMO) Ange Montesinos [id number] 04/01/2024 1 [place] [facility] Ange Montesinos [id number] 04/01/2024 1 [facility] (MEDICARE REPLACEMENT/ADV ANTAGE - PPO) [id number] Ange Montesinos [id number] 04/01/2024 2 [facility] - DOS PRIOR TO 2023 (MEDICARE REPLACEMENT/ADV ANTAGE - PPO) Ange Montesinos [id number] Notes Date Note Type Note Provider Name [...] bladder or bowel incontinence. Evelio Smith MD [address] [place] [address] , [address], [place], [address], [place] - [place] 01/31/2023 15:49:56 04/01/2023 [...] this time.She states she has been having [place] Palsy for the past one year and sees Dr. 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 She has weakness in her arms and legs . Evelio Smith MD [address] [facility] , [address], [place], [address], [facility] Pain Management 04/05/2023 12:20:51 12/02/2023 text/html She states she has been having pain since 9308-7917. She is having an exacerbation of pain [...] [facility] [place] . She has done physical therapy and had an exacerbation of her pain.She has seen a neurosurgeon in [place], [place] . She wants to wait as she is planning on a knee replacement. She is also in grief as she has lost her mother last year. Evelio Smith MD [address] , [address], [place], [address], [facility] Pain Management 12/04/2023 16:33:41 01/09/2024 text/html She is here for a lumbar epidural steroid injection under fluoroscopic guidance. Evelio Smith MD [address] [facility] , [address], [place], [address], [facility] - Pain Management 01/09/2024 15:09:18 03/27/2024 text/html She states she has been having pain since 1832-3060. She is having an exacerbation of pain [...] [facility] [place] . She has done physical therapy and had an exacerbation of her pain.She has seen a neurosurgeon in [place], [place] . She is S/P knee replacement on 03/03/[address] Segundo and is on eliquis. Evelio Smith MD [address] , [address], [place], [address], [facility] - Pain Management 03/31/2024 16:06:56 OBGyn Episode No OBEpisode recorded.
--- OUTSIDE RECORDS SUMMARY | 2025-09-08 05:02 | XMS_ITS | Encounter Summary ---
Author Organization [facility] Address [address] [place] [address] Care Team Providers Care Data Virtualization Consultant Name Role Phone Mily Lawrence MD Primary Care Provider [phone] Encounter Details Date Type Department Care Team (Late st Contact Info) Description 08/04/2025 Results Follow-Up Internal Medicine - [place] [address] [facility] [address] [place] [address] Jessa Gandhi NP [address] [facility] [address] [place] [address] Social History Tobacco Use Types Packs/Day Years [...] care for your loved ones. For example, childcare center director or elderly care for an older [...] PM EST Office Visit Internal Medicine - [address] [place] [id number] Mily Lawrence MD [address] [place] [address] documented as of this encounter Visit Diagnoses Not on filedocumented in this encounter Additional Health Concerns Assessment Noted Time PHQ-9 Depression Total Score: 0 06/07/20 25 3:34 PM EDT documented as of this encounter Care Teams Data Virtualization Consultant Relationship Specialty Start Date End Date Mily Lawrence MD [address] [place] [phone] PCP - General Internal Medicine 09/24/16 documented as of this encounter
--- OUTSIDE RECORDS SUMMARY | 2025-09-08 05:04 | XMS_ITS | Clinical Summary ---
Author Organization [facility] Address [address] [place] [address] Phone Care Team Providers Care Record Changer Tester Name Role Phone Mily Lawrence MD Primary Care Provider [phone] Allergies Active Allergy Reactions Criticality Noted Date [...] day. 210 tablet 1 12/14/19 25 Active melatonin 3 mg tablet TAKE 1 TABLET BY MOUTH EVERYDAY AT BEDTIME 28 tablet 2 04/08/20 25 Active traZODone (DESYREL) 50 mg tablet [...] DAY 28 tablet 8 07/30/20 25 Active celecoxib (CeleBREX) 200 mg capsuleIndicat ions:Presence of left artificial knee joint Take 1 capsule (200 mg total) by mouth 2 (two) times a day. 56 capsule 4 08/27/20 25 Active hydroCHLOROthi azide 12.5 mg tablet TAKE 1 TABLET BY MOUTH EVERY DAY 28 tablet 5 08/27/20 25 Active hydroCHLOROthi azide 12.5 mg tablet TAKE 1 TABLET BY MOUTH 1 TIME EACH DAY. 28 tablet 5 03/12/20 25 025 Discontinued celecoxib (CeleBREX) 200 mg capsuleIndicat ions:Presence of left artificial knee joint TAKE 1 CAPSULE BY MOUTH TWICE A DAY NEEDED FOR PAIN TAKE WITH FOOD STAY HYDRATED 60 capsule 3 05/07/20 25 025 Discontinued Active Problems Problem Noted Date Diagnosed Date [...] Post-thrombotic syndrome 04/05/2019 DVT (deep venous thrombosis) (CMS/[facility] V24, CMS/H CC V28) 04/01/2019 Overview (08/07/2024): 02/2019 on Xarelto Chronic back pain 07/04/2018 Degenerative joint disease of cervical spine Urinary incontinence 07/04/2018 Lumbar degenerative disc disease 01/30/2018 Overview (08/07/2024): Last Assessment & Plan: Ms. Sung is about 12 days status post L3-4 DLIF with anterior spinal instrumentation performed by Dr. Hayward at [facility] in [place]. This the surgery, she has been a patient in rehab at [address] [place] [address]. While there, she is participating in physical [...] 4:12 PM EDT): Breast microcalcification, mammographic 10/21/19 Essential hypertension 03/14/2017 [...] Encounters Date Type Department Care Team Description 09/03/2025 2:45 PM EST Office Visit Orthopedic Surgery - [address] [place] [address] Marci Bernardo PA Bilateral hand pain (Primary Dx) 08/25/2025 4:37 PM EST - 08/25/2025 11:59 PM EST Hospital Encounter [facility] CT Scan [address] [place] [address] S/P lumbar fusion Discharge Disposition: Home or Self Care 08/04/2025 Results Follow-Up Internal Medicine [facility] [address] [facility] [address] [place] [phone] Jessa Gandhi NP 07/20/2025 2:15 PM EDT Office Visit Orthopedic Surgery [facility] [address] [facility] [address] [place] [phone] Marci Bernardo PA Trigger finger of right thumb (Primary Dx); Trigger ring finger of right hand 06/16/2025 Telephone Orthopedic Surgery [facility] [address] [facility] [address] [place] [phone] Aida White PA 06/15/2025 3:07 PM EDT - 06/15/2025 11:59 PM EDT Hospital Encounter [facility] MRI [address] [place] [phone] Nontraumatic complete tear of right rotator cuff Discharge Disposition: Home or Self Care 06/09/2025 2:30 PM EDT Consult Orthopedic Surgery [facility] [address] [facility] [address] [place] [phone] Trey Richter MD Nontraumatic complete tear of right rotator cuff (Primary Dx) from Last 3 Months Immunizations Immunization Administration Dates Next Due Hepatitis B (Usszdhc-V-Rafuk , Recombivax HB-Adult) 19yo and older 10/27/2019,05/26/2019,04/22/2019 [...] 1 INTERSPACE; Surgeon: Nathan Hayward MD; Location: [facility] Service: Spine; Laterality: N/A; NECK SURGERY 2007 PROCEDURE: HISTORICAL NECK SURGERY; COMMENT: C-spine; arthrodesis HAND SURGERY 1989 Bilateral PROCEDURE: HISTORICAL HAND SURGERY; COMMENT: right tendo repair; left thumb x2; region with pins in place TUBAL LIGATION 2007 PROCEDURE: HISTORICAL TUBAL LIGATION OTHER SURGICAL HISTORY 09/2017 PROCEDURE: AZ ARTHRD ANT INTERBODY MIN DSC LUMBAR COLONOSCOPY 2017 PROCEDURE: HISTORICAL COLONOSCOPY TOTAL KNEE ARTHROPLASTY 02/03/2019 Right PROCEDURE: HISTORICAL TOTAL KNEE REPLACE BREAST BIOPSY 10/08/2013 PROCEDURE: AZ BX BREAST NEEDLE CORE W/O IMAGING GUIDANCE SPX; COMMENT: in [place],no evidence of malignancy OTHER SURGICAL HISTORY 1997 [...] (deep venous thrombosis) ([facility]/HCC V24, [facility]/HCC V28) 04/01/2019 DX:DVT (deep venous thrombos is) ([facility]); COMMENT: 02/2019 on Xarelto Epigastric pain [...] for your loved ones. For example, child nutrition assistant or elderly care for an older [...] PM EST Office Visit Internal Medicine - [address] [place] [address] Mily Lawrence MD [address] [place] [phone] Health Maintenance Due Date Last Done Comments [...] this topic Medical Devices Implanted Type Area Index Clerk Device Identifier Shelf Expiration Date Model / Serial / Lot Ragini Ratliffuvius 100 5ml Stry-K2m [id number] - [id number] Implanted:Qty: 1 on 07/16/2024 by Nathan Hayward MD N/A: Spine Lumbar LAXMI SPINE 02/17/2027 [id number] / [id number] / Bone Graft Spine Infus Xsm Medt-Sofa [id number] Implanted:Qty: 1 on 07/16/2024 by Nathan Hayward MD N/A: Spine Lumbar [employer] SOFAMOR DANEK 11/20/2025 [id number] / / [id number] [place] Interbody System Implanted:Qty: 1 on 07/16/2024 by Nathan Hayward MD N/A: Spine Lumbar LAXMI - MEDICAL 10/30/2028 [id number] / / [id number] Plate [facility] 2hl 18mm Stry-K2m [id number] Implanted:Qty: 1 on 07/16/2024 by Nathan Hayward MD N/A: Spine Lumbar LAXMI SPINE [id number] / / 5.0x40mm Screw Implanted:Qty: 2 on 07/16/2024 by Nathan Hayward MD N/A: Spine Lumbar LAXMI - MEDICAL [id number] / / Plate Assembly Screw Implanted:Qty: 1 on 07/16/2024 by Nathan Hayward MD N/A: Spine Lumbar LAXMI - MEDICAL [id number] / / Procedures Procedure Name Priority Date/Time Associated Diagnosis Comments CT LUMBAR SPINE WO CONTRAST Routine 08/25/2025 5:12 PM EST S/P lumbar fusion AZ INJECTION SINGLE TENDON SHEATH OR LIGAMENT APONEUROSIS Routine 07/20/2025 2:15 PM EDT Trigger ring finger of right hand AZ INJECTION SINGLE TENDON SHEATH OR LIGAMENT APONEUROSIS [...] screening mammogram for malignant neoplasm of breast HM DEPRESSION SCREENING Routine 05/11/2024 HM HEPATITIS C SCREENING Routine 08/05/2023 HM HIV SCREENING Routine 08/05/2023 HM HPV Routine 07/13/2021 HM COLONOSCOPY Routine 03/24/2018 from Last 3 Months or Most Recently Relevant to Health Maintenance Results * CT Lumbar Spine wo Contrast (08/25/2025 5:12 PM EST) Anatomical Region Laterality Modality Spine, L-spine Computed Tomogra phy 08/26/2025 8:58 AM EST Impressions 08/26/2025 9:00 AM EST Lumbar fusion without hardware failure. -------- FINAL REPORT -------- Dictated By: Luzmaria Kowalski Dictated Date: 08/26/2025 08:58 ET Assigned Physician: Luzmaria Kowalski Reviewed and Electronically Signed By: Luzmaria Kowalski Signed Date: 08/26/2025 09:00 ET Workstation ID: [id number] Transcribed By: Self Edit Transcribed Date: 08/26/2025 08:58 ET Narrative 08/26/2025 9:00 AM EST CLINICAL HISTORY: s/p lumbar fusion, fup study TECHNIQUE: CT lumbar spine without contrast. COMPARISON: MRI of lumbar spine from 04/30/2025. FINDINGS: ----- -- SURGICAL CHANGE: Status post posterior hardware fusion with pedicle screws and posterior fusion rods at L4-L5. No evidence of hardware fracture. No evidence of hardware loosening. Discectomy with intervertebral spacer placement L4-5 level, osseous fusion across the disc space. Status post left extreme lateral interbody fusion at L3-L4. No evidence of hardware fracture or loosening in this location. No definite solid osseous fusion across the intervertebral spacer. ----- -- GENERAL: Stable spine alignment. No acute fracture. No focal suspect lytic or blastic lesion. Visualized extraspinal soft tissues reveal no acute abnormality or large mass. Nonobstructing left lower pole renal stone. Stable multilevel discogenic/degenerative change in the spine compared to recent MRI. ----- -- Procedure Note Luzmaria Kowalski MD - 08/26/2025 CLINICAL HISTORY: s/p lumbar fusion, fup study TECHNIQUE: CT lumbar spine without contrast. COMPARISON: MRI of lumbar spine from 04/30/2025. FINDINGS: ----- -- SURGICAL CHANGE: Status post posterior hardware fusion with pedicle screws and posteriorfusion rods at L4-L5. No evidence of hardware fracture. No evidence ofhardware loosening. Discectomy with intervertebral spacer placement L4-5level, osseous fusion across the disc space. Status post left extremelateral interbody fusion at L3-L4. No evidence of hardware fracture orloosening in this location. No definite solid osseous fusion across theintervertebral spacer. ----- -- GENERAL: Stable spine alignment. No acute fracture. No focal suspect lytic or blastic lesion. Visualizedextraspinal soft tissues reveal no acute abnormality or large mass.Nonobstructing left lower pole renal stone. Stable multilevel discogenic/degenerative change in the spine compared torecent MRI. ----- -- IMPRESSION: Lumbar fusion without hardware failure. -------- FINAL REPORT -------- Dictated By: Luzmaria Kowalski Dictated Date: 08/26/2025 08:58 ET Assigned Physician: Luzmaria Kowalski Reviewed and Electronically Signed By: Luzmaria Kowalski Signed Date: 08/26/2025 09:00 ET Workstation ID: [id number] Transcribed By: Self Edit Transcribed Date: 08/26/2025 08:58 ET Nathan Hayward MD IMG CT PROCEDURES Final Result * AZ INJECTION SINGLE TENDON SHEATH OR LIGAMENT APONEUROSIS [...] LOPEZ IN CLINIC/BEDSIDE ORDERABLES Final Result * AZ INJECTION SINGLE TENDON SHEATH OR LIGAMENT APONEUROSIS [...] Signed Date: 06/16/2025 05:58 ET Workstation ID: [id number] Transcribed By: Self Edit Transcribed Date: 06/16/2025 [...] x 9 mm (AP by TV) with vsob-iewuxwvmjibs-aqlgueevm/near complete tearing (progressed from November 2023)with underlying [...] Signed Date: 06/16/2025 05:58 ET Workstation ID: [id number] Transcribed By: Self Edit Transcribed Date: 06/16/2025 05:52 ET Trey Richter MD IM MRI PROCEDURES Final Resul t * Estrogens, total and fractionated (06/09/2025 2:07 PM EDT) Estrone 13 pg/mL 06/15/2025 3:26 PM EDT [facility] Comment: Early Follicular <150 Late Follicular 100-250 Luteal <200 Post-menopausal 3-32 Estradiol 5 pg/mL 06/15/2025 3:26 PM EDT [facility] Comment: Early Follicular 30-100 Late Follicular 100-400 Luteal 50-150 Post-menopausal 2-21 Estrogens, Total, Calculation 18 pg/mL 06/15/2025 3:26 PM EDT [facility] Comment: Early Follicular 30-250 Late Follicular 200-650 Luteal 50-350 Post-menopausal 5-52 Note that total estrogens from estrone plus estradiol are not valid in due to presence of estriol at significant levels. This test was developed and its performance characteristics determined by [facility] in a manner consistent with CLIA requirements. This test has not been cleared or approved by the U.S. Food and Drug Administration. This test is used for patient testing purposes. It should not be regarded as investigational or for research. Test performed at [facility], [address] , [place] [address] Adina Kramer MD, PhD - Telesales Advisor Blood Venous blood specimen / Unknown Venipuncture / Unknown 06/09/2025 2:07 PM EDT 06/09/2025 2:07 PM EDT Jessa Gandhi NP LAB BLOOD ORDERABLES Final Resul t [facility] [address] [place] [address] * (ABNORMAL) Lipid panel with reflex to direct LDL (06/09/2025 2:07 PM EDT) Cholesterol 232(H) 0 - 200 mg/dL LAB CHEMISTRY METHOD 06/09/2025 7:17 PM EDT [facility] Triglycerides 73 0 - 150 mg/dL LAB CHEMISTRY METHOD 06/09/2025 7:17 PM [facility] HDL 59 >=40 mg/dL LAB CHEMISTRY METHOD [facility] LDL Calculated 158(H) 0 - 100 mg/dL LAB CHEMISTRY METHOD 06/09/2025 7:17 PM T [facility] Comment:Estimated LDL Calcul ated using equation: Total cholesterol - HDL cholesterol - (Triglycerides/5) VLDL Cholesterol Jose Luis 14.6 mg/dL LAB CHEMISTRY METHOD 06/09/2025 7:17 PM [facility] Non HDL Chol. (LDL+VLDL) 173(H) <145 mg/dL LAB CHEMISTRY METHOD 06/[facility] Chol/HDL Ratio 3.9 0.0 - 4.4 LAB CHEMISTRY METHOD 06/09/2025 7:17 PM EDT [facility] Blood Venous blood specimen / Unknown Venipuncture / Unknown 06/09/2025 2:07 PM EDT 06/09/2025 2:07 PM EDT us Jessa Gamaevelina TOASTER OPERATOR LAB BLOOD ORDERABLES Final Resul t [facility] [address] [place] [address], [place] [phone] * (ABNORMAL) Testosterone free, bioavailable and total (06/09/2025 2:07 PM EDT) Testosterone 43 7 - 46 ng/dL LAB CHEMISTRY METHOD 06/09/2025 8:11 PM EDT [facility] Testosterone, Free 0.6(H) 0.0 - 0.5 ng/dL LAB CHEMISTRY METHOD 06/09/2025 8:11 PM EDT [facility] Testosterone, Bioavailable 13(H) 1 - 9 ng/dL LAB CHEMISTRY METHOD 06/09/2025 8:11 PM EDT [facility] Sex Hormone Binding 57.8 See Comment nmol/L LAB CHEMISTRY METHOD 06/09/2025 8:11 PM EDT [facility] Comment: FEMALES: pre-menopausal 10.8 - [...] LAB CHEMISTRY METHOD 06/09/2025 8:11 PM EDT [facility] Blood Venous blood specimen / Unknown Venipuncture / Unknown 06/09/2025 2:07 PM EDT 06/09/2025 2:07 PM EDT us Jessa Gandhi TOASTER OPERATOR LAB BLOOD ORDERABLES Final Resul t Performing Organization Address City/[facility]/ZIP Co de Phone Number [facility] [address] [place] [address], [place] [phone] * FRANSISCA IFA with titer and pattern (06/09/2025 2:07 PM EDT) Pathologist [facility] FRANSISCA Negative Negative 06/14/2025 11:35 AM EDT [facility] Comment:FRANSISCA performed by ind irect immunofluorescence (IFA) using HEp-2 substrate. Blood Venous blood specimen / Unknown Venipuncture / Unknown 06/09/2025 2:07 PM EDT 06/09/2025 2:07 PM EDT Jessa Gandhi TOASTER OPERATOR LAB BLOOD ORDERABLES Final Resul t Performing Organization Address [facility] Co de Phone Number [facility] [address] [place] [address], [place] [phone] * Vitamin D 25 hydroxy (06/09/2025 2:07 PM EDT) [facility] Vit D, 25-Hydroxy 34.9 30.0 - 80.0 ng/mL LAB CHEMISTRY METHOD 06/09/2025 8:11 PM EDT [facility] Blood Venous blood specimen / Unknown Venipuncture / Unknown 06/09/2025 2:07 PM EDT 06/09/2025 2:07 PM EDT us Jessa Gandhi TOASTER OPERATOR LAB BLOOD ORDERABLES Final Resul t Performing Organization Address [facility] Co de Phone Number [facility] [address] [place] [address], [place] [phone] * Rheumatoid factor (06/09/2025 2:07 PM EDT) [facility] Rheumatoid Factor <10.0 <15.0 I Unit/mL LAB CHEMISTRY METHOD 06/09/2025 7:33 PM EDT [facility] Blood Venous blood specimen / Unknown Venipuncture / Unknown 06/09/2025 2:07 PM EDT 06/09/2025 2:07 PM EDT us Jessa Gandhi TOASTER OPERATOR LAB BLOOD ORDERABLES Final Resul t Performing Organization Address City/[facility] de Phone Number [facility] [address] [place] [address], [place] [phone] * (ABNORMAL) C-reactive protein (06/09/2025 2:07 PM EDT) Pathologist [facility] C-Reactive Protein 0.52(H) <=0.50 mg/dL LAB CHEMISTRY METHOD 06/09/2025 6:54 PM EDT [facility] Blood Venous blood specimen / Unknown Venipuncture / Unknown 06/09/2025 2:07 PM EDT 06/09/2025 2:07 PM EDT Jessa Gandhi TOASTER OPERATOR LAB BLOOD ORDERABLES Final Resul t Performing Organization Address [facility] de Phone Number [facility] [address] [place] [address], [place] [phone] * Magnesium (06/09/2025 2:07 PM EDT) Pathologist [facility] Magnesium 2.3 1.9 - 2.6 mg/dL LAB CHEMISTRY METHOD 06/09/2025 6:54 PM EDT [facility] Blood Venous blood specimen / Unknown Venipuncture / Unknown 06/09/2025 2:07 PM EDT 06/09/2025 2:07 PM EDT us Jessa Gandhi TOASTER OPERATOR LAB BLOOD ORDERABLES Final Resul t Performing Organization Address City/[facility] Co de Phone Number [facility] [address] [place] [address], [place] [phone] * Hemoglobin A1c (06/09/2025 2:07 PM EDT) [facility] Hemoglobin A1C 5.3 <6.5 % LAB CHEMISTRY METHOD 06/09/2025 10:06 PM EDT [facility] Mean Bld Glu Estim. 105 mg/dL LAB CHEMISTRY METHOD 06/09/2025 10:06 PM EDT [facility] Blood Venous blood specimen / Unknown Venipuncture / Unknown 06/09/2025 2:07 PM EDT 06/09/2025 2:07 PM EDT Jessa Gandhi NP LAB BLOOD ORDERABLES Final Resul t Performing Organization Address [facility]/ZIP Co de Phone Number [facility] [address] [place] [address], [place] [phone] * Vitamin B12 (06/09/2025 2:07 PM EDT) [facility] Vitamin B-12 772 250 - 900 pcg/mL LAB CHEMISTRY METHOD 06/09/2025 7:17 PM EDT [facility] Blood Venous blood specimen / Unknown Venipuncture / Unknown 06/09/2025 2:07 PM EDT 06/09/2025 2:07 PM EDT Jessa Gandhi NP LAB BLOOD ORDERABLES Final Resul t [facility] [address] [place] [address], [place] [phone] * Comprehensive metabolic panel (06/09/2025 2:07 PM EDT) [facility] Sodium 140 133 - 145 mmol/L LAB CHEMISTRY METHOD 06/09/2025 7:17 PM EDT [facility] Potassium 4.7 3.5 - 5.5 mmol/L LAB CHEMISTRY METHOD 06/09/2025 7:17 PM [facility] Chloride 108 96 - 110 mmol/L LAB CHEMISTRY METHOD 06/09/2025 7:17 PM [facility] CO2 28 21 - 32 mmol/L LAB CHEMISTRY METHOD 06/09/2025 7:17 PM [facility] Anion Gap 4 3 - 11 LAB CHEMISTRY METHOD 06/09/2025 7:17 PM [facility] Glucose 98 70 - 100 mg/dL LAB CHEMISTRY METHOD 06/09/2025 7:17 PM [facility] BUN 15 5 - 25 mg/dL LAB CHEMISTRY METHOD 06/09/2025 7:17 PM [facility] Creatinine 0.81 0.50 - 1.10 mg/dL LAB CHEMISTRY METHOD 06/09/2025 7:17 PM [facility] eGFR 85 >=60 mL/min/1. 73m2 LAB CHEMISTRY METHOD 06/09/2025 7:17 PM [facility] Comment:Calculation based on the Chronic Kidney Disease Epidemiology Collaboration (CKD-EPI) equation refit without adjustment for race. BUN/Creatinine Ratio 18.5 LAB CHEMISTRY METHOD 06/09/2025 7:17 PM [facility] Calcium 9.4 8.5 - 10.5 mg/dL LAB CHEMISTRY METHOD 06/09/2025 7:17 PM [facility] AST (SGOT) 22 10 - 42 unit/L LAB CHEMISTRY METHOD 06/09/2025 7:17 PM [facility] ALT (SGPT) 27 10 - 60 unit/L LAB CHEMISTRY METHOD 06/09/2025 7:17 PM [facility] Alkaline Phosphatase 60 42 - 121 unit/L LAB CHEMISTRY METHOD 06/09/2025 7:17 PM [facility] Total Protein 7.4 6.0 - 8.0 g/dL LAB CHEMISTRY METHOD 06/09/2025 7:17 PM EDT [facility] Albumin 3.9 3.2 - 5.0 g/dL LAB CHEMISTRY METHOD 06/09/2025 7:17 PM EDT [facility] Total Bilirubin 0.6 0.0 - 1.4 mg/dL LAB CHEMISTRY METHOD 06/09/2025 7:17 PM EDT [facility] Blood Venous blood specimen / Unknown Venipuncture / Unknown 06/09/2025 2:07 PM EDT 06/09/2025 2:07 PM EDT Jessa Gandhi NP LAB BLOOD ORDERABLES Final Resul t [facility] [address] [place] [address], [place] [phone] * MG Mammo Digital Screening w Jaime bilat (03/08/2025 3:09 PM EDT) Anatomical Region Laterality Modality Breast Bilateral Mammography 03/09/2025 7:42 AM EDT Impressions 03/09/2025 7:47 AM EDT No mammographic evidence of malignancy. A negative mammogram in the presence of a clinically suspicious palpable abnormality does not preclude the possibility of malignancy or alter the indications for biopsy. PQRI CPT II 3342F Code 07014, 04346 PQRI 225 CPT II 7025F TISSUE DENSITY: The breasts are almost entirely fatty. (BI-RADS Category A) IMPRESSION: Benign. BI-RADS CATEGORY: 2 - BENIGN RECOMMENDATION: Screening bilateral mammogram is recommended in 1 year. Mammo Location: [facility], [address] [place] [id number] -------- FINAL REPORT -------- Dictated By: Oscar Adam Dictated Date: 03/09/2025 07:42 ET Assigned Physician: Oscar Adam Reviewed and Electronically Signed By: Oscar Adam Signed Date: 03/09/2025 07:47 ET Workstation ID: [id number] Transcribed By: Self Edit Transcribed Date: 03/09/2025 [...] and CC projection is performed in the [employer] 2000-D unit. Computer aided detection utilizing the [...] MLO and CC projection is performed in the[employer] 2000-D unit. Computer aided detection utilizing the [...] for biopsy. PQRI CPT II 3342F Code 96457, 66835 PQRI 225 CPT II 7025F TISSUE DENSITY: The breasts are almost entirely fatty. (BI-RADS CategoryA) IMPRESSION: Benign. BI-RADS CATEGORY: 2 - BENIGN RECOMMENDATION: Screening bilateral mammogram is recommended in 1 year. Mammo Location: [facility], [address] [place] [id number] -------- FINAL REPORT -------- Dictated By: Oscar Adam Dictated Date: 03/09/2025 07:42 ET Assigned Physician: Oscar Adam Reviewed and Electronically Signed By: Oscar Adam Signed Date: 03/09/2025 07:47 ET Workstation ID: [id number] Transcribed By: Self Edit Transcribed Date: 03/09/2025 07:42 ET Result [facility] Jessa Gandhi TOASTER OPERATOR IMG BI PROCEDURES Final Result * Depression Screening (05/11/2024) Pathologist [facility] Depression Screening Abstracted Historical Provider HEALTH MAINTENANCE Final Result * HIV Screening (08/05/2023) [facility] HIV Screening Abstracted Historical Provider HEALTH MAINTENANCE Final Result * Hepatitis C Screening (08/05/2023) [facility] Hepatitis C Screening Abstracted Result [facility] Provider HEALTH MAINTENANCE Final Result * Cervical Cancer Screening: HPV (07/13/2021) [facility] Cervical Cancer Screening: HPV Negative, abstracted Result [facility] Provider HEALTH MAINTENANCE Final Result * Colonoscopy (03/24/2018) [facility] Colonoscopy No interpretation , abstracted Comment:External Completion of test per patient (Patient reports normal results) Anatomical Region Laterality Modality Other Historical Provider HEALTH MAINTENANCE Final Result from Last 3 Months or Most Recently Relevant to Health Maintenance Insurance [facility] MEDICARE Member Subscriber Plan / Payer (Ef fective 2022-Present) Name:JOSH SUNG Relation to Subscriber:Self Name:Josh Sung Payer ID:[id number] Group ID:[id number] Type:Not on file Address: [place] [address] [address] [id number] Advance Directives Documents on File Type Date Recorded Patient Ceramist Expl anation Health Care Decision (hx) 03/05/2024 AD LAM DIRECTIVE Health Care Decision (hx) 03/05/2024 AD LAM DIRECTIVE Health Care Decision (hx) 03/05/2024 AD LAM DIRECTIVE Health Care Decision (hx) 03/05/2024 AD LAM DIRECTIVE Health Care Decision (hx) 02/13/2024 HE [facility] CARE PROXY Care Teams Record Changer Tester Relationship Specialty Start Date End Date Mily Lawrence MD [address] [place] [phone] PCP - General Internal Medicine 09/24/16
== END 2025-09-07 13:36 | disposition home or self-care (01) ==
LOC: HO.HSMS 13:09
PROVIDERS: PCP Internal Medicine; Visit Provider Psychiatry & Neurology Neurology
DX: G51.32 Clonic hemifacial spasm, left (principal)
CPT/HCPCS: 64612

== ENCOUNTER → 2025-09-07 13:08 | Outpatient (BNVA) | payer OTHER, SELFPAY | PROVIDERS: PCP Internal Medicine; Visit Provider Psychiatry & Neurology Neurology | DX: G51.32 Clonic hemifacial spasm, left (principal) | CPT/HCPCS: 64612; 99211; J0585 ==